=== PATIENT | male | born 1965 | race Caucasian/White ===

== ENCOUNTER → 2018-02-03 11:03 | Outpatient (CLI) | payer OTHER, SELFPAY ==
--- NOTE | 2018-02-03 11:45 | RAD_ITS ---
STUDY: X-RAY CHEST REASON FOR EXAM: Male, 52 years old. Fever and chills. TECHNIQUE: Frontal and lateral views of the chest. COMPARISON: February 12, 2016. FINDINGS: The lungs are clear and expanded. There is no demonstrated pleural abnormality. Normal size heart. Normal mediastinum and jennifer. Normal visualized pulmonary arteries. Normal visualized aortic arch and descending thoracic aorta. Normal visualized thoracic spine. Normal visualized ribs, clavicles, and shoulders. There is no demonstrated abnormality of the visualized soft tissue structures of the upper abdomen. RAD/Chest PA and Lateral IMPRESSION: Normal x-ray examination of the chest. Electronically Signed: Parag Ramirez MD at 12:30 EDT , Service support ,
[2018-02-03 11:53] LABS: Absolute Lymphocyte Count 0.63 X10^3/ul (0.83-4.51); Absolute Neutrophil Count 3.9 X10^3/uL (2.0-7.7); Hematocrit 39.8 % (40-54); Hemoglobin 13.8 g/dl (13.0-16.5); Lymphocyte # 0.63 X10^3/ul (4.0); Lymphocyte % 13.2 % (19-41); Mean Corp Hgb Conc 34.7 g/gl (32-36); Mean Corpuscular Volume 83.6 fL (80-94); Mean Platelet Vol. 9.6 fl (6.2-12.0); Monocyte# 0.24 X10^3/uL; Neutrophil # 3.89 X10^3/uL (2.7-7.7); Neutrophil % 81.8 % (47-70); Platelet Count 129 K/mm3 (150-450); RBC Distribution Width CV 13.5 % (11.6-14.6); RBC Distribution Width SD 41.5 fl (35.1-43.9); Red Blood Count 4.76 M/mm3 (4.6-6.2); White Blood Count 4.8 K/mm3 (4.4-11.0)
[2018-02-03 12:01] LABS: POSITIVE COUNT NO; POSITIVE DIFFERENTIAL NO; POSITIVE MORPHOLOGY NO
[2018-02-03] MEDS: 0.9% Normal Saline 1,000 ML 999 ML IV (12:15)
[2018-02-03 12:32] VITALS: BP 138/71; PULSE 113; RESP 18; TEMP 37.7; O2SAT 95; BMI 39.8
[2018-02-03 12:32] LABS: AST(SGOT) 33 U/L (15-37); Alanine Aminotransfer ALT/SGPT 40 U/L (16-61); Albumin, Serum 3.7 g/dL (3.2-5.0); Alkaline Phosphatase 71 U/L (45-117); Anion Gap 12 (5-15); BUN 11 mg/dL (7-18); BUN/Creat Ratio 6.9 RATIO (10-20); Calcium,Total 8.6 mg/dL (8.5-10.1); Chloride 101 mmol/L (98-107); Creatinine, Serum 1.59 mg/dL (0.70-1.30); EST Glomerular Filtration Rate 49 mL/min (>60); Est Glom Filt Rate - Afr Amer 59 mL/min (>60); Globulin 3.8 g/dL (2.2-4.2); Glucose 173 mg/dL (74-106); Potassium 3.7 mmol/L (3.5-5.1); Protein, Total 7.5 g/dL (6.4-8.2); Sodium Level 135 mmol/L (136-145)
== END ==
LOC: LAB 11:54 → MEDOUTP 12:14
PROVIDERS: Family Provider Internal Medicine; PCP Internal Medicine; Visit Provider Nurse Practitioner Gerontology
DX: E86.0 Dehydration (principal); R05 Cough; R50.9 Fever, unspecified
CPT/HCPCS: 96360; 36415; 71046; 80053; 85025; 87040; 87804; J7030; A4216

== ENCOUNTER 2018-02-04 14:30 | Emergency (ER) | payer OTHER, SELFPAY ==
[2018-02-04 14:31] VITALS: BP 147/81; PULSE 105; RESP 16; TEMP 37.7; O2SAT 95; BMI 39.3
--- NOTE | 2018-02-04 16:10 | ED.VISSUMM ---
- ER Visit Summary Date of Service: 02/04/18 Chief Complaint: Fever, chills sweats and diarrhea History of Present Illness: The patient is a 52 M who reports fever documented 102/2.9?F since Saturday. He reports diarrhea starting Saturday. He has not been on any antibiotics. 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 He states he has not cared for any patients with diarrhea or C. difficile. He was seen yesterday by Dick Jung at [facility] and had blood tests ordered as well as blood cultures. Patient does complain of a vertex headache that is not positional and is intermittent. He denies any neck stiffness or pain. He reports intermittent light sensitivity. He denies rhinorrhea, postnasal drainage or sore throat. He denies chest pain, cough, shortness of breath or difficulty breathing. He denies nausea or vomiting. Does report diarrhea since Saturday. He has not noted any blood or mucus in his stool. Is no history of inflammatory bowel disorder. He reports decreased urine output and darker urine. He denies rash. He does, no generalized weakness. Physical Examination: Vital signs are remarkable for blood pressure 1 4781 temperature 99.9 heart rate 105. He is diaphoretic. Head is atraumatic normocephalic. Pupils equal round reactive paradoxic muscle intact sclerae anicteric. TMs normal. Nares patent with no discharge. Posterior pharynx without erythema or exudate. Uvula is midline. Tongue is dry. Heart is rapid and regular without murmur, gallop or rub. Lungs are clear to auscultation with good move air bilaterally. Abdomen is soft nontender with increased bowel sounds. There is no CVA tenderness noted. No dermatologic lesions noted. He is alert oriented with a nonfocal neurologic exam. Distal pulses are palpable. There is no nuchal rigidity. Test Result; CBC is unremarkable. Creatinine is 1.21 with a GFR 76. Yesterday creatinine was 1.59 with a GFR 54. No stool specimen was submitted because he has not had a bowel movement in 3-1/2 hours. Emergency Department Course and Treatment: CBC and BMP were repeated to compare to yesterday's results. Since he reports diarrhea since Saturday and fever with rigors and diaphoresis stool for enteric pathogens was ordered as well as stool for C. difficile. Treatment Plan: IV was established and received 1 L of normal saline wide open. Since his lab values have improved and he has had no diarrhea and 3 and half hours stool cultures were discontinued. He was instructed to follow-up with Dr. Mcclelland if he is symptoms persisted for several more days. Disposition: Discharged home in stable and improved condition Impression: 1. Abdominal pain with diarrhea 2. Fever 3. Mild dehydration 4. Sinus tachycardia documented on monitor This note was generated with [employer] dictation software. It may contain incorrect words, spelling, and punctuation that were not noted in review of the chart prior to signing ED Disposition - Plan for ED Patient: Disposition: Home or Assisted Living Chief Complaint: Fever Instructions: ED Diarrhea Viral Referrals: Birgit Mcclelland DO [Primary Care Provider] - 3-5 Days if not improving
[2018-02-04] MEDS: 0.9% Normal Saline 1,000 ML 1000 ML IV (16:29)
[2018-02-04 16:33] LABS: Absolute Lymphocyte Count 0.79 X10^3/ul (0.83-4.51); Absolute Neutrophil Count 3.6 X10^3/uL (2.0-7.7); Basophil# 0.01 X10^3/uL; Basophil% 0.2 % (0-1); Hematocrit 37.8 % (40-54); Hemoglobin 13.1 g/dl (13.0-16.5); Lymphocyte # 0.79 X10^3/ul (4.0); Lymphocyte % 16.5 % (19-41); Mean Corp Hgb Conc 34.7 g/gl (32-36); Mean Corpuscular Hgb 28.7 pg (27.0-32.0); Mean Corpuscular Volume 82.9 fL (80-94); Mean Platelet Vol. 10.1 fl (6.2-12.0); Monocyte# 0.43 X10^3/uL; Neutrophil # 3.55 X10^3/uL (2.7-7.7); Neutrophil % 74.3 % (47-70); Platelet Count 125 K/mm3 (150-450); RBC Distribution Width CV 13.6 % (11.6-14.6); RBC Distribution Width SD 41.3 fl (35.1-43.9); Red Blood Count 4.56 M/mm3 (4.6-6.2); White Blood Count 4.8 K/mm3 (4.4-11.0)
[2018-02-04 16:36] LABS: POSITIVE COUNT NO; POSITIVE DIFFERENTIAL NO; POSITIVE MORPHOLOGY NO
[2018-02-04 16:47] LABS: Anion Gap 7 (5-15); BUN 8 mg/dL (7-18); BUN/Creat Ratio 6.6 RATIO (10-20); Chloride 103 mmol/L (98-107); Creatinine, Serum 1.21 mg/dL (0.70-1.30); EST Glomerular Filtration Rate 67 mL/min (>60); Est Glom Filt Rate - Afr Amer 81 mL/min (>60); Estimated Creatinine Clearance 76.06 ml/min; Glucose 117 mg/dL (74-106); Potassium 3.6 mmol/L (3.5-5.1); Sodium Level 135 mmol/L (136-145)
[2018-02-04 18:32] VITALS: BP 137/75; PULSE 93; RESP 16
== END 2018-02-04 18:35 | disposition home or self-care (01) ==
PROVIDERS: Emergency Provider Emergency Medicine; Family Provider Internal Medicine; PCP Internal Medicine
DX: R10.9 Unspecified abdominal pain (principal); R19.7 Diarrhea, unspecified; R50.9 Fever, unspecified; E86.0 Dehydration; R00.0 Tachycardia, unspecified; Z72.0 Tobacco use; Z79.899 Other long term (current) drug therapy
CPT/HCPCS: 80048; 85025; 96360; 96361; 99285; J7030; A4216

== ENCOUNTER → 2018-02-10 11:19 | Outpatient (CLI) | payer OTHER, SELFPAY ==
[2018-02-10 11:55] LABS: Color, Urine Yellow (Yellow); Glucose, Dipstick Normal (Normal); Ketone-Dipstick Negative (Negative); Leukocyte Esterase-Dipstick Negative /ul (Negative); Nitrite-Dipstick Negative (Negative); Occult Blood-Urine Negative /ul (Negative); Protein-Dipstick Negative (Negative); Specific Gravity, Urine 1.015 (1.002-1.030); Urine Bilirubin Dipstick Negative (Negative); Urine Clarity Clear (Clear); Urine Urobilinogen Normal (Normal)
[2018-02-10 12:05] LABS: Erythrocyte Sedimentation Rate 9 mm/hr (0-20)
== END ==
PROVIDERS: Family Provider Internal Medicine; PCP Internal Medicine; Visit Provider Nurse Practitioner Gerontology
DX: R50.9 Fever, unspecified (principal)
CPT/HCPCS: 36415; 81002; 85652; 86140; 87086

== ENCOUNTER → 2018-02-26 15:17 | Outpatient (CLI) | payer OTHER, SELFPAY ==
[2018-02-26 15:39] LABS: Absolute Lymphocyte Count 0.97 X10^3/ul (0.83-4.51); Absolute Neutrophil Count 4.3 X10^3/uL (2.0-7.7); Basophil# 0.01 X10^3/uL; Basophil% 0.2 % (0-1); Eosinophils% 1.8 % (0-5); Hematocrit 41.6 % (40-54); Hemoglobin 14.2 g/dl (13.0-16.5); Lymphocyte # 0.97 X10^3/ul (4.0); Mean Corp Hgb Conc 34.1 g/gl (32-36); Mean Corpuscular Hgb 29.1 pg (27.0-32.0); Mean Corpuscular Volume 85.2 fL (80-94); Mean Platelet Vol. 9.4 fl (6.2-12.0); Monocyte# 0.31 X10^3/uL; Monocyte% 5.4 % (0-10); Neutrophil % 75.4 % (47-70); Platelet Count 194 K/mm3 (150-450); RBC Distribution Width CV 13.9 % (11.6-14.6); RBC Distribution Width SD 42.8 fl (35.1-43.9); Red Blood Count 4.88 M/mm3 (4.6-6.2); White Blood Count 5.7 K/mm3 (4.4-11.0)
[2018-02-26 15:40] LABS: POSITIVE COUNT NO; POSITIVE DIFFERENTIAL NO; POSITIVE MORPHOLOGY NO
[2018-02-28 14:24] LABS: ANTINUCLEAR ANTIBODIES DIRECT Negative (Negative)
== END ==
PROVIDERS: Family Provider Internal Medicine; PCP Internal Medicine; Visit Provider Internal Medicine
DX: D69.6 Thrombocytopenia, unspecified (principal); M25.50 Pain in unspecified joint
CPT/HCPCS: 36415; 85025; 86038

== ENCOUNTER → 2018-02-28 11:43 | Outpatient (CLI) | payer OTHER, SELFPAY ==
[2018-02-28 12:42] LABS: Absolute Lymphocyte Count 1.16 X10^3/ul (0.83-4.51); Absolute Neutrophil Count 5.2 X10^3/uL (2.0-7.7); Basophil# 0.02 X10^3/uL; Basophil% 0.3 % (0-1); Eosinophil# 0.13 X10^3/uL; Eosinophils% 1.9 % (0-5); Hematocrit 40.5 % (40-54); Hemoglobin 14.1 g/dl (13.0-16.5); Lymphocyte # 1.16 X10^3/ul (4.0); Lymphocyte % 16.9 % (19-41); Mean Corp Hgb Conc 34.8 g/gl (32-36); Mean Corpuscular Hgb 29.5 pg (27.0-32.0); Mean Corpuscular Volume 84.7 fL (80-94); Mean Platelet Vol. 9.9 fl (6.2-12.0); Monocyte# 0.38 X10^3/uL; Monocyte% 5.5 % (0-10); Neutrophil # 5.15 X10^3/uL (2.7-7.7); Neutrophil % 75.1 % (47-70); Platelet Count 203 K/mm3 (150-450); RBC Distribution Width CV 13.7 % (11.6-14.6); RBC Distribution Width SD 42.2 fl (35.1-43.9); Red Blood Count 4.78 M/mm3 (4.6-6.2); White Blood Count 6.9 K/mm3 (4.4-11.0)
[2018-02-28 12:44] LABS: POSITIVE COUNT NO; POSITIVE DIFFERENTIAL NO; POSITIVE MORPHOLOGY NO
[2018-02-28 12:51] LABS: Erythrocyte Sedimentation Rate 29 mm/hr (0-20)
[2018-02-28 13:08] LABS: ALB/GLOB Ratio 0.9 RATIO (0.9-2.4); AST(SGOT) 20 U/L (15-37); Alanine Aminotransfer ALT/SGPT 25 U/L (16-61); Albumin, Serum 3.7 g/dL (3.2-5.0); Alkaline Phosphatase 70 U/L (45-117); Anion Gap 7 (5-15); BUN 11 mg/dL (7-18); BUN/Creat Ratio 9.3 RATIO (10-20); Calcium,Total 8.8 mg/dL (8.5-10.1); Chloride 107 mmol/L (98-107); Creatinine, Serum 1.18 mg/dL (0.70-1.30); EST Glomerular Filtration Rate 69 mL/min (>60); Est Glom Filt Rate - Afr Amer 83 mL/min (>60); Globulin 4.1 g/dL (2.2-4.2); Glucose 105 mg/dL (74-106); Potassium 3.7 mmol/L (3.5-5.1); Protein, Total 7.8 g/dL (6.4-8.2); Sodium Level 139 mmol/L (136-145)
[2018-03-01 15:12] LABS: ASO Titer 34.6 IU/mL (0.0-200.0)
[2018-03-04 07:55] LABS: Anti-dsDNA Ab <1 IU/mL (0-9)
== END ==
PROVIDERS: Family Provider Internal Medicine; PCP Internal Medicine; Visit Provider Physician Assistant
DX: L30.9 Dermatitis, unspecified (principal)
CPT/HCPCS: 36415; 80053; 85025; 85652; 86060; 86225

== ENCOUNTER → 2018-03-14 13:29 | Outpatient (CLI) | payer OTHER, SELFPAY ==
--- NOTE | 2018-03-14 13:56 | ECHOD_ITS ---
Reason For Study: Murmur, R/O Endocarditis Procedure This was a 2D Doppler, Color Flow transthoracic echocardiogram. The exam was of poor technical quality due to body habitus. The study was technically difficult. Contrast injection was performed. Exam performed in department. Left Ventricle Normal LV size. Left ventricular systolic function is normal. The estimated ejection fraction is 55 %. Transmitral doppler flow suggestive of impaired relaxation of left ventricle. No regional wall motion abnormalities noted. Right Ventricle Normal RV size. Normal systolic function. Atria Normal left atrium. Normal right atrium. No doppler evidence for ASD. Mitral Valve There is no mitral annular calcification. Normal mitral valve. Mild (1+) eccentric mitral valve insufficiency. Tricuspid Valve Normal tricuspid valve. Trivial tricuspid valve insufficiency. Right ventricular systolic pressure estimated to be 23 mmHg. Aortic Valve Trisinus/trileaflet aortic valve. Normal aortic valve. Pulmonic Valve The pulmonic valve is not well visualized. Great Vessels Normal sized aortic root. Pericardium/Pleural No pericardial effusion. Medication Definity0.2ml given slow IV push to enhance endocardial definition. MMode/2D Measurements & Calculations LVIDd: 5.0 cm IVSd: 1.00 cm Ao root diam: 3.0 cm LVIDs: 3.7 cm LVPWd: 0.92 cm LA dimension: 3.7 cm FS: 26.3 % LAV(MOD-bp): 26.0 ml LA A4 area: 9.7 cm2 RA A4 area: 7.9 cm2 LAV(MOD-bp) Indexed: 10.8 ml/m2 LAV(MOD-sp2): 30.1 ml LAV(MOD-sp4): 22.7 ml Doppler Measurements & Calculations MV E max patel: 47.4 cm/sec Lat Peak E' Patel: 6.7 cm/sec Med Peak E' Patel: 4.6 cm/sec MV A max patel: 65.3 cm/sec E/E' lat: 7.1 E/E' med: 10.2 MV E/A: 0.73 Ao V2 max: 101.5 cm/sec LV V1 max: 86.1 cm/sec PA V2 max: 96.4 cm/sec Ao max P.1 mmHg LV V1 max P.0 mmHg Ao V2 mean: 87.5 cm/sec Ao mean P.1 mmHg Ao V2 VTI: 19.4 cm TR max patel: 221.2 cm/sec TR max P.6 mmHg Interpretation Summary The study was technically difficult. Contrast injection was performed. Left ventricular systolic function is normal. The estimated ejection fraction is 55 %. Mild (1+) eccentric mitral valve insufficiency. Trivial tricuspid valve insufficiency. Right ventricular systolic pressure estimated to be 23 mmHg. Transmitral doppler flow suggestive of impaired relaxation of left ventricle Ordering Physician: Dick Moulton Referring Physician: Birgit Mcclelland Performed By: Miriam Fuentes, TUAN, RVT
[2018-03-14 16:11] LABS: HIV - WCH Non-Reactive (Nonreactive)
[2018-03-19 12:09] LABS: Cytoplasmic Ab (C-ANCA) <1:20 titer (Neg:<1:20); HEPATITIS B SURFACE AG Negative (Negative); Hepatitis A AB, Total Negative (Negative); Hepatitis A IgM Antibody Negative (Negative); Hepatitis B Core AB IgM Negative (Negative); Hepatitis B Core Ab Total Negative (Negative); Hepatitis C Ab 0.1 s/co ratio (0.0-0.9); Lyme IgG P18 Ab Present (.); Lyme IgG P23 Ab Absent (.); Lyme IgG P28 Ab Absent (.); Lyme IgG P30 Ab Absent (.); Lyme IgG P39 Ab Absent (.); Lyme IgG P41 Ab Present (.); Lyme IgG P45 Ab Absent (.); Lyme IgG P58 Ab Absent (.); Lyme IgG P66 Ab Absent (.); Lyme IgG P93 Ab Present (.); Lyme IgM P23 Ab Present (.); Lyme IgM P39 Ab Present (.); Lyme IgM P41 Ab Present (.)
[2018-03-20 16:51] LABS: CCP IgG Antibodies 7 units (0-19); Hep B Surface Antibodies Non Reactive (.); Perinuclear Ab (P-ANCA) <1:20 titer (Neg:<1:20)
[2018-03-20 16:52] LABS: Lyme IgG WB Interpretation Negative (.); Lyme IgM WB Interpretation Positive (.)
== END ==
PROVIDERS: Family Provider Internal Medicine; PCP Internal Medicine; Visit Provider Internal Medicine Infectious Disease
DX: R01.1 Cardiac murmur, unspecified (principal); M25.50 Pain in unspecified joint
CPT/HCPCS: 36415; 86200; 86256; 86617; 86703; 86704; 86705; 86706; 86708; 86709; 86803; 87040; 87340; 93306; Q9957; A4216; C8929

== ENCOUNTER 2018-03-14 15:31 | Emergency (ER) | payer OTHER, SELFPAY ==
[2018-03-14 15:33] VITALS: BP 129/83; PULSE 94; RESP 16; TEMP 36.8; O2SAT 98; BMI 38.2
--- NOTE | 2018-03-14 15:52 | CT_ITS ---
STUDY: CT BRAIN WITHOUT CONTRAST REASON FOR EXAM: Male, 52 years old. Headache, right facial droop and numbness for 2 days with slurred speech, question of Gutierrez's palsy. RADIATION DOSAGE (If Supplied By Facility): CTDIvol = ( 60.81 ) mGy, DLP = ( 1067.08 ) mGycm TECHNIQUE: Transaxial CT imaging of the brain was performed without administration of intravenous contrast material. Coronal and sagittal 2-D MPR Individualized dose optimization techniques were used for this CT. COMPARISON: None. FINDINGS: Extracranial soft tissues including orbital contents exhibit no acute abnormality. Craniofacial osseous structures within the field of view exhibit no acute abnormality. Paranasal sinuses, mastoid air cells and middle ear cavities are clear. Normal size ventricles and extra-axial spaces for the patient's age. Normal pituitary, brainstem and cerebellum There is no acute intracranial bleed, mass or mass effect nor any specific evidence of acute territorial infarct. CT/Brain/Head without Contrast IMPRESSION: No acute intracranial process. Electronically Signed: Sean Snider, at 16:51 EDT Tel , Service support ,
--- NOTE | 2018-03-14 15:52 | EKG12_ITS ---
Test Reason : FACIAL DROOP Blood Pressure : / mmHG Vent. Rate : 083 BPM Atrial Rate : 083 BPM P-R Int : 258 ms QRS Dur : 108 ms QT Int : 368 ms P-R-T Axes : 038 007 -30 degrees QTc Int : 432 ms Sinus rhythm with 1st degree A-V block Nonspecific T wave abnormality Abnormal ECG Confirmed by JACLYN MORRISON, NICOLAS ([id number]), general expeditor FAISAL SWANSON ([id number]) on 03/18/2018 2:15:59 PM Referred By: Dick Moulton Confirmed By:NICOLAS ANAYA MD
[2018-03-14] MEDS: Acetaminophen 500 MG Tablet 1000 MG PO (15:57)
--- NOTE | 2018-03-14 16:18 | ED.VISSUMM ---
- ER Visit Summary Date of Service: 03/14/18 Chief Complaint: Facial droop History of Present Illness: The patient is a 52 M who 6 weeks ago developed fever is felt to have a virus. He then developed a rash in his shoulder and became more diffuse. He eventually saw dermatology had a negative biopsy. The patient rash is improved he continues to have generalized myalgias. Went to primary care's office today and had blood work done and then had echocardiogram done today. Patient states that 2 days ago while brushing his teeth he noticed that he had difficult time spitting the toothpaste out and then last night had difficulty drinking a pop. 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 Patient does note bit of a right-sided headache and some pain just anterior inferior to the right ear. He denies any herpetic-like lesions on the face of the scalp. Physical Examination: Afebrile vital signs are stable Gen: Well-nourished well-developed Head: Normocephalic atraumatic Eyes: Perrl EOMI ENT: TMs clear no rhinorrhea moist mucous membranes Neck: Supple no lymphadenopathy no JVD nontender CVS: Regular rate rhythm no murmurs normal S1-S2 Respiratory: No distress clear to auscultation bilaterally chest nontender Abdomen: Soft nontender nondistended normal bowel sounds no masses Back: Nontender Extremity: Nontender no edema Skin: Normal color no rash Neuro: alert orientated ?3 patient has normal strength and sensation of the extremities. Looking at the face the patient has right-sided facial droop weakness of the eyelid and weakness of the forehead. There are no herpetic lesions seen. There is no symptomatology seen in the ear canal or the tympanic membrane. Sensations preserved. Psych: Normal affect normal mood Test Results: EKG shows a sinus rhythm with a first-degree AV block at a rate of 83. There were some inferior anterior changes of the T waves compared to his EKG 1-1/[address] the brain was obtained because of the patient's had an recent infections and this was negative. His white count is normal at 7.5 with 75.8 segs. ESR is elevated at 29. CRP is elevated at 33. Troponin is negative. Chest x-ray is negative. Blood cultures were obtained as well as a fungal culture. Emergency Department Course and Treatment: I spoke with cardiology and they were able to read his echocardiogram that he had done today. This does not demonstrate any obvious valvular lesions but a MOI is a better test. Ejection fraction is normal. There is no effusion. There was some mitral valve regurgitation at 1+. I spoke with the patient's infectious disease doctor. He is following the case closely. Clinically the patient has an acute Gutierrez's palsy will be started on prednisone and acyclovir. He will continue to follow-up with his doctor. We talked about the fact that some people with Gutierrez's palsy do not resolve. The patient I spoke at length about keeping him in the hospital this weekend for observation and obtain a MOI on Saturday but the patient does not wish to stay in the hospital if he has to wait until Saturday for the MOI. Patient will return if has any concerns. Impression: 1. Acute right Gutierrez's palsy 2. Fever of unknown origin This note was generated with [employer] dictation software. It may contain incorrect words, spelling, and punctuation that were not noted in review of the chart prior to signing ED Disposition - Plan for ED Patient: Disposition: Home or Assisted Living Chief Complaint: Neuro S/Sx Instructions: ED [place] Palsy, ED Fever Unconf Cause Prescriptions: Prednisone [Deltasone] 60 mg PO DAILY #15 tab Valacyclovir HCl [Valacyclovir] 1,000 mg PO TID 7 Days #21 tab Referrals: Dick Moulton MD [STAFF PHYSICIAN] - As soon as possible
--- NOTE | 2018-03-14 16:23 | ED.DCSUM_ITS ---
- ER Visit Summary Date of Service: 03/14/18 Chief Complaint: Facial droop History of Present Illness: The patient is a 52 M who 6 weeks ago developed fever is felt to have a virus. He then developed a rash in his shoulder and became more diffuse. He eventually saw dermatology had a negative biopsy. The patient rash is improved he continues to have generalized myalgias. Went to primary care's office today and had blood work done and then had echocardiogram done today. Patient states that 2 days ago while brushing his teeth he noticed that he had difficult time spitting the toothpaste out and then last night had difficulty drinking a pop. 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 Patient does note bit of a right-sided headache and some pain just anterior inferior to the right ear. He denies any herpetic-like lesions on the face of the scalp. Physical Examination: Afebrile vital signs are stable Gen: Well-nourished well-developed Head: Normocephalic atraumatic Eyes: Perrl EOMI ENT: TMs clear no rhinorrhea moist mucous membranes Neck: Supple no lymphadenopathy no JVD nontender CVS: Regular rate rhythm no murmurs normal S1-S2 Respiratory: No distress clear to auscultation bilaterally chest nontender Abdomen: Soft nontender nondistended normal bowel sounds no masses Back: Nontender Extremity: Nontender no edema Skin: Normal color no rash Neuro: alert orientated ?3 patient has normal strength and sensation of the extremities. Looking at the face the patient has right-sided facial droop weakness of the eyelid and weakness of the forehead. There are no herpetic lesions seen. There is no symptomatology seen in the ear canal or the tympanic membrane. Sensations preserved. Psych: Normal affect normal mood Test Results: EKG shows a sinus rhythm with a first-degree AV block at a rate of 83. There were some inferior anterior changes of the T waves compared to his EKG 1-1/[address] the brain was obtained because of the patient's had an recent infections and this was negative. His white count is normal at 7.5 with 75.8 segs. ESR is elevated at 29. CRP is elevated at 33. Troponin is negative. Chest x-ray is negative. Blood cultures were obtained as well as a fungal culture. Emergency Department Course and Treatment: I spoke with cardiology and they were able to read his echocardiogram that he had done today. This does not demonstrate any obvious valvular lesions but a MOI is a better test. Ejection fraction is normal. There is no effusion. There was some mitral valve regurgitation at 1+. I spoke with the patient's infectious disease doctor. He is following the case closely. Clinically the patient has an acute Gutierrez's palsy will be started on prednisone and acyclovir. He will continue to follow- up with his doctor. We talked about the fact that some people with Gutierrez's palsy do not resolve. The patient I spoke at length about keeping him in the hospital this weekend for observation and obtain a MOI on Saturday but the patient does not wish to stay in the hospital if he has to wait until Saturday for the MOI. Patient will return if has any concerns. Impression: 1. Acute right Gutierrez's palsy 2. Fever of unknown origin This note was generated with [employer] dictation software. It may contain incorrect words, spelling, and punctuation that were not noted in review of the chart prior to signing ED Disposition - Plan for ED Patient: Disposition: Home or Assisted Living Chief Complaint: Neuro S/Sx Instructions: ED [place] Palsy, ED Fever Unconf Cause Prescriptions: Prednisone [Deltasone] 60 mg PO DAILY #15 tab Valacyclovir HCl [Valacyclovir] 1,000 mg PO TID 7 Days #21 tab Referrals: Dick Moulton MD [STAFF PHYSICIAN] - As soon as possible
--- NOTE | 2018-03-14 16:29 | RAD_ITS ---
STUDY: X-RAY CHEST REASON FOR EXAM: Male, 52 years old. Cough, right facial droop. TECHNIQUE: Portable upright chest COMPARISON: 02/03/2018 FINDINGS: The patient is slightly rotated accounting for the differential density of the lung michele. The lungs are clear and expanded. Normal cardiomediastinal silhouette, jennifer and pleural margins. No acute osseous or upper abdominal process. RAD/Chest 1 View (Portable) IMPRESSION: No acute cardiopulmonary process. Electronically Signed: Sean Snider, at 16:53 EDT Tel , Service support ,
[2018-03-14 17:18] LABS: Prothrombin Time (Protime)PT. 13.5 SECONDS (11.7-14.9)
[2018-03-14 17:19] LABS: Partial Thromboplast Time 33.2 Seconds (24.1-36.2)
[2018-03-14 17:20] LABS: Absolute Neutrophil Count 5.7 X10^3/uL (2.0-7.7); Basophil# 0.02 X10^3/uL; Basophil% 0.3 % (0-1); Eosinophil# 0.11 X10^3/uL; Eosinophils% 1.5 % (0-5); Hematocrit 42.9 % (40-54); Hemoglobin 14.6 g/dl (13.0-16.5); Mean Corpuscular Hgb 28.6 pg (27.0-32.0); Mean Platelet Vol. 9.8 fl (6.2-12.0); Monocyte# 0.47 X10^3/uL; Monocyte% 6.3 % (0-10); Neutrophil # 5.67 X10^3/uL (2.7-7.7); Neutrophil % 75.8 % (47-70); Platelet Count 232 K/mm3 (150-450); RBC Distribution Width SD 42.5 fl (35.1-43.9); Red Blood Count 5.11 M/mm3 (4.6-6.2); White Blood Count 7.5 K/mm3 (4.4-11.0)
[2018-03-14 17:21] LABS: ALB/GLOB Ratio 0.9 RATIO (0.9-2.4); AST(SGOT) 19 U/L (15-37); Alanine Aminotransfer ALT/SGPT 23 U/L (16-61); Albumin, Serum 3.5 g/dL (3.2-5.0); Alkaline Phosphatase 66 U/L (45-117); Anion Gap 7 (5-15); BUN 9 mg/dL (7-18); BUN/Creat Ratio 8.2 RATIO (10-20); Calcium,Total 9.2 mg/dL (8.5-10.1); Chloride 105 mmol/L (98-107); EST Glomerular Filtration Rate 75 mL/min (>60); Est Glom Filt Rate - Afr Amer 90 mL/min (>60); Estimated Creatinine Clearance 83.67 ml/min; Globulin 3.9 g/dL (2.2-4.2); Glucose 107 mg/dL (74-106); Potassium 3.5 mmol/L (3.5-5.1); Protein, Total 7.4 g/dL (6.4-8.2); Sodium Level 140 mmol/L (136-145)
[2018-03-14 17:24] LABS: POSITIVE COUNT NO; POSITIVE DIFFERENTIAL NO; POSITIVE MORPHOLOGY NO
[2018-03-14 17:36] LABS: Erythrocyte Sedimentation Rate 29 mm/hr (0-20)
[2018-03-14 17:41] VITALS: BP 122/72; PULSE 88; RESP 19; O2SAT 97
[2018-03-14 17:42] LABS: Lactic Acid 1.5 mmol/L (0.4-2.0)
[2018-03-14] MEDS: Ibuprofen 200 MG Tablet 800 MG PO (17:52)
--- NOTE | 2018-03-14 17:55 | NURSING ---
DR LUCAS LAWS
[2018-03-14 18:23] VITALS: BMI 38.2
[2018-03-14 19:26] VITALS: BP 132/73; PULSE 85; RESP 17; O2SAT 97
== END 2018-03-14 19:28 | disposition home or self-care (01) ==
PROVIDERS: Emergency Provider Emergency Medicine; Family Provider Internal Medicine; PCP Internal Medicine
DX: G51.0 Bell's palsy (principal); R50.9 Fever, unspecified; M10.9 Gout, unspecified; E78.00 Pure hypercholesterolemia, unspecified; Z79.899 Other long term (current) drug therapy
CPT/HCPCS: 70450; 71045; 80053; 83605; 84484; 85025; 85610; 85652; 85730; 86140; 87040; 93005; 99285; A4216

== ENCOUNTER → 2019-04-01 | Outpatient (CLI) | payer OTHER, SELFPAY ==
[2019-04-01 15:19] LABS: Hemoglobin A1c 5.2 % (4.2-6.3); Vitamin D,25 Hydroxy 16.4 ng/mL (29.95-100.01)
[2019-04-01 15:21] LABS: PSA,Total - Annual Screen 0.96 ng/mL (0.00-4.00); Thyroid Stim Hormone (TSH) 4.08 uIU/mL (0.358-3.74)
== END | disposition home or self-care (01) ==
LOC: LAB 14:06
PROVIDERS: Family Provider Internal Medicine; PCP Internal Medicine; Referring Provider Internal Medicine; Visit Provider Internal Medicine
DX: E78.5 Hyperlipidemia, unspecified (principal); R79.89 Other specified abnormal findings of blood chemistry; Z12.5 Encounter for screening for malignant neoplasm of prostate; R73.9 Hyperglycemia, unspecified
CPT/HCPCS: 36415; 82306; 83036; 84153; 84443; G0103

== ENCOUNTER → 2019-08-07 10:51 | Outpatient (CLI) | payer OTHER, SELFPAY ==
[2019-08-07 12:15] LABS: Uric Acid 6.8 mg/dL (3.5-7.2)
[2019-08-09 15:07] LABS: CHOLESTEROL TOTAL 190 mg/dL (100-199); HDL-C 30 mg/dL (>39); HDL-P TOTAL 27.3 umol/L (>=30.5); SMALL LDL-P 1027 nmol/L (<=527); TRIGLYCERIDES 257 mg/dL (0-149)
[2019-08-09 17:47] LABS: INSULIN RESISTANCE SCORE 91 (<=45); LDL-C 109 mg/dL (0-99); LDL-P 1516 nmol/L (<1000)
== END ==
PROVIDERS: Family Provider Internal Medicine; PCP Internal Medicine; Referring Provider Internal Medicine; Visit Provider Internal Medicine
DX: E79.0 Hyperuricemia without signs of inflammatory arthritis and tophaceous disease (principal); E78.5 Hyperlipidemia, unspecified
CPT/HCPCS: 36415; 80061; 83704; 84550

== ENCOUNTER → 2019-09-09 13:06 | Outpatient (CLI) | payer OTHER, SELFPAY ==
[2019-09-09 14:07] LABS: T4 Free Direct 1.01 ng/dL (0.76-1.46); Thyroid Stim Hormone (TSH) 5.44 uIU/mL (0.358-3.74)
== END ==
PROVIDERS: PCP Internal Medicine; Referring Provider Internal Medicine; Visit Provider Internal Medicine
DX: E03.9 Hypothyroidism, unspecified (principal); E78.5 Hyperlipidemia, unspecified
CPT/HCPCS: 36415; 84439; 84443; 84481

== ENCOUNTER → 2019-12-11 | Outpatient (CLI) | payer OTHER, SELFPAY ==
[2019-12-11 10:59] LABS: Cholesterol 171 mg/dL (200); High Density Lipoprotein 39 mg/dL; Triglycerides 199 mg/dL; Very Low Density Lipoprotein 40 mg/dL (5-40)
== END | disposition home or self-care (01) ==
PROVIDERS: PCP Internal Medicine; Referring Provider Internal Medicine; Visit Provider Internal Medicine
DX: E78.5 Hyperlipidemia, unspecified (principal)
CPT/HCPCS: 36415; 80061

== ENCOUNTER 2020-09-23 15:35 | Outpatient (RCR) | payer OTHER, SELFPAY | END 2020-10-16 23:59 | LOC: LABSPEC 15:35 | PROVIDERS: PCP Internal Medicine; Referring Provider Family Medicine Geriatric Medicine; Visit Provider Family Medicine Geriatric Medicine | DX: Z03.818 Encounter for observation for suspected exposure to other biological agents ruled out (principal) | CPT/HCPCS: 87426 ==

== ENCOUNTER → 2021-01-02 15:32 | Outpatient (CLI) | payer OTHER, SELFPAY ==
--- NOTE | 2021-01-02 15:35 | RAD_ITS ---
STUDY: X-RAY - LEFT KNEE REASON FOR EXAM: Male, 55 years old. PAIN IN L KNEE -- STANDING TECHNIQUE: 4 view(s) of the knee. COMPARISON: None. FINDINGS: Normal visualized distal femur. Normal visualized proximal tibia and fibula. Normal proximal tibiofibular articulation. 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 Normal lateral femorotibial compartment. There is mild degenerative arthrosis of the patellofemoral articulation. The soft tissue structures are unremarkable. RAD/Knee 4 or More Views IMPRESSION: Mild degenerative changes, no acute findings Electronically Signed: Jcarlos Haddad MD at 7:46 EDT , Service support ,
--- NOTE | 2021-01-02 15:41 | RAD_ITS ---
STUDY: X-RAY - RIGHT KNEE REASON FOR EXAM: Male, 55 years old. PAIN IN R KNEE TECHNIQUE: 4 weightbearing view(s) of the knee. COMPARISON: None. FINDINGS: Normal visualized distal femur. Normal visualized proximal tibia and fibula. Normal proximal tibiofibular articulation. There is mild degenerative arthrosis of the medial femorotibial compartment. There is mild degenerative arthrosis of the lateral femorotibial compartment. There is mild degenerative arthrosis of the patellofemoral articulation. The soft tissue structures are unremarkable. RAD/Knee 4 or More Views IMPRESSION: Mild arthrosis Electronically Signed: Jcarlos Haddad MD at 7:46 EDT , Service support ,
== END ==
PROVIDERS: PCP Internal Medicine; Referring Provider Physician Assistant Surgical; Visit Provider Physician Assistant Surgical
DX: M25.561 Pain in right knee (principal)
CPT/HCPCS: 73564

== ENCOUNTER 2021-03-25 19:21 | Emergency (ER) | payer OTHER, SELFPAY ==
[2021-03-25 19:22] VITALS: BP 153/91; PULSE 86; RESP 17; TEMP 36.8; O2SAT 98; BMI 40.7
[2021-03-25 19:24] VITALS: BP 153/91; PULSE 87; RESP 16; TEMP 36.8; O2SAT 97
--- NOTE | 2021-03-25 19:42 | EX.ED.VIS.UR ---
HPI HPI - URI History of Present Illness Chief Complaint: Sore Throat Informant: patient Onset/Context/Timing Onset: Days Context: Gradual Onset Timing: Continuous Current Severity: Mild Worsened by: Swallowing Associated Symptoms Associated Symptoms: Positive for Productive Cough; Negative for Nasal Congestion, Headache, Sinus Pressure, Myalgias, Nausea, Vomiting, Diarrhea, Shortness of Breath and Chest Pain Narrative Narrative: 55-year-old male history of high triglycerides and gout. 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 For the last 3 to 4 days starting on Saturday has had a sore throat and a productive cough. He denies any vomiting or diarrhea. He did have a subjective fever on Saturday. He has been vaccinated for Covid. Prior similar symptoms: Yes Recent Illness/Hospitalization: No ROS ROS ED ROS Narrative Subjective fever, sore throat cough. No shortness of breath. No vomiting or diarrhea. Review of Systems ROS Unobtainable: Denies due to encephalopathy Constitutional Constitutional ED: Reports fever(s) Eyes Eyes: Denies change in vision ENT ENT ED: Reports sore throat; Denies ear pain Cardiovascular Cardiovascular: Denies chest pain Respiratory/Chest Respiratory/Chest: Reports cough and sputum; Denies dyspnea Gastrointestinal Gastrointestinal: Denies abdominal pain, diarrhea, nausea or vomiting Genitourinary Genitourinary ED: Denies dysuria Musculoskeletal Musculoskeletal: Denies myalgias Integumentary Denies rash Neurologic Neurologic: Denies headache(s) Psychiatric Psychiatric: Denies depression Endocrine Endocrinology: Denies polyuria Hematologic/Lymphatic Hematologic/Lymphatic: Denies easy bruising Allergic/Immunologic Allergic/Immunologic ED: Denies urticaria PFSH PFSH Home Medications febuxostat [Uloric] 40 mg PO DAILY 02/12/16 [History Last Taken 03/14/18] fenofibric acid (choline) [Trilipix] 135 mg PO DAILY 02/12/16 [History Last Taken 03/13/18] levothyroxine [Synthroid] 25 mcg PO DAILY 03/25/21 [History Last Taken Unknown] multivitamin 1 tab PO DAILY 03/25/21 [History Last Taken Unknown] Allergy/AdvReac Type Severity Reaction Status Date / Time No Known Allergies Allergy Verified 03/25/21 19:22 Social History Smoking Status: Never smoker EXAM Physical Exam Narrative Exam Narrative: Middle-age male no acute distress vital signs stable afebrile. Pulse ox 90% on room air no signs hypoxia. He does not look septic or toxic. HEENT exam mild posterior pharyngeal erythema. No exudate. No peritonsillar abscess. No trouble swallowing or breathing. No stridor nor drooling. TMs normal. Neck nontender no lymphadenopathy. Trachea midline. Lungs clear to auscultation bilaterally. No rales, rhonchi or wheezing. Currently not coughing. Heart regular rhythm no murmur. Abdomen soft nontender. Moving all extremities. No edema. Back nontender. Skin no rashes. Neurologically is awake and alert. Const Vital Signs: 03/25/21 19:22 03/25/21 19:24 Temperature 98.3 F 98.3 F Temperature Source Temporal Temporal Pulse Rate 86 87 Respiratory Rate 17 16 Blood Pressure 153/91 H 153/91 H Blood Pressure Mean 111 111 Pulse Ox 98 97 Oxygen Delivery Method Room Air Room Air Positive well nourished and well developed General Appearance ED: well developed and NAD; Negative for cyanotic or diaphoretic HEENT Reports TM's clear and moist mucous membranes HEENT Narrative: Mild posterior pharyngeal erythema. No exudate. No abscess. normocephalic and atraumatic; Negative for scalp tenderness Face and Sinus: Negative for sinus tenderness, maxillary instability or facial tenderness External Ear: external ears normal, mastoids normal and no preauricular adenopathy External Auditory Canal: EAC's normal Tympanic Membrane ED: Yes TM's clear and TM's normal bilaterally Tympanic Membrane: TM's normal bilaterally Throat: posterior oropharynx abnormal Eyes PERRL and EOMs intact bilaterally Neck no lymphadenopathy, supple, no meningeal signs and no JVD General: Negative for anterior neck swelling or lymphadenopathy Resp normal respiratory effort and clear to auscultation bilaterally Auscultation: Negative for rales, rhonchi or wheezes Cardio S1 normal heart sound, S2 normal heart sound and no murmurs Rate: regular rate Rhythm: regular rhythm GI non-tender, non-distended and no masses Inspection: Negative for abdominal distention Auscultation: normoactive bowel sounds Palpation: soft; Negative for tender or guarding Back/Spine no CVA tenderness General Back: Negative for CVA tenderness Extremity normal to inspection and full ROM General Extremety ED: Negative for cyanosis or tenderness General Extremity: Negative for cyanosis Neuro oriented x3 Sensorium / Orientation: alert, oriented to person, oriented to place and oriented to time; Negative for orientation impaired, lethargic or stuporous Motor Exam: strength 5/5 throughout Psych mental status grossly normal Skin Lesions: no lesions Rashes: no rashes MDM MDM MDM Narrative Medical decision making narrative: Middle-aged male with sore throat and cough. Rapid strep and Covid test will be obtained. Lungs are clear I do not think he needs an x-ray. Lab Data Attestation: I reviewed the patient's lab results. Lab results narrative: Rapid strep and Covid both negative. Repeat exam at 905 doing well be discharged home. Treated as a viral syndrome. Discharge Plan Triage Chief Complaint: Sore Throat ED Provider: Bhupendra Myers Dx/Rx/DC Orders Clinical Impression: Viral URI Instructions: ED URI, Viral, No Abx (Adult) Prescriptions: No Action febuxostat [Uloric] 40 MG tablet 40 mg PO DAILY RF: 0 fenofibric acid (choline) [Trilipix] 135 MG capsule,delayed release(DR/EC) 135 mg PO DAILY RF: 0 multivitamin Tablet 1 tab PO DAILY RF: 0 levothyroxine [Synthroid] 25 mcg Tablet 25 mcg PO DAILY RF: 0 Primary Care Provider: Birgit Mcclelland Referrals: Birgit Mcclelland DO [Primary Care Provider] - 1 Week if not improving Activity Restrictions/Additional Instructions: Plenty of fluids and rest. Alternate Tylenol and Motrin for fever. Warm salt water gargling for your throat along with throat lozenges. Follow-up with your doctor if not improving. Disposition Disposition: Home, Self Care
== END 2021-03-25 21:13 | disposition home or self-care (01) ==
PROVIDERS: Emergency Provider Emergency Medicine; PCP Internal Medicine
DX: J06.9 Acute upper respiratory infection, unspecified (principal)
CPT/HCPCS: 87426; 87880; 99282

== ENCOUNTER → 2022-03-02 | Outpatient (CLI) | payer OTHER, SELFPAY ==
--- NOTE | 2022-03-02 15:20 | CT_ITS ---
EXAM: CT RIGHT LOWER EXTREMITY WITHOUT INTRAVENOUS CONTRAST CLINICAL INDICATION: VARUS DEFORMITY TECHNIQUE: Helically acquired images were obtained of the right lower extremity without intravenous contrast. 2-D reformats were performed by the technologist. This CT exam was performed using one or more of the following dose reduction techniques: automated exposure control, adjustment of the mA and/or kV according to patient size, and/or use of iterative reconstruction technique. This report was created using [employer] report generation technology. RADIATION DOSE: CTDIvol = 18.97 mGy, DLP = 1518.91 mGy-cm. COMPARISON: None. FINDINGS: BONES/JOINTS: Small bump along the superior lateral aspect of the right femoral head neck junction. Marked right knee joint medial compartment narrowing with marginal osteophytes. Moderate lateral patellofemoral joint space narrowing with slight marginal osteophytes. Slight knee joint effusion. No acute fracture. No subluxation. Normal alignment. No sclerotic or destructive changes. SOFT TISSUES: Unremarkable. No soft tissue swelling or gas. No radiopaque foreign body. CT/Extremity Lower without Contra IMPRESSION: 1. 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 2. Marked right knee joint medial compartment narrowing with marginal osteophytes. 3. Moderate lateral patellofemoral joint space narrowing with slight marginal osteophytes. 4. Slight right knee joint effusion. Electronically Signed: Vince Romero MD at 16:56 EDT ,
== END | disposition home or self-care (01) ==
LOC: CT 14:55
PROVIDERS: PCP Internal Medicine; Referring Provider Specialist; Visit Provider Specialist
DX: M21.161 Varus deformity, not elsewhere classified, right knee (principal)
CPT/HCPCS: 73700

== ENCOUNTER 2022-03-21 05:57 | Day surgery (SDC) | payer OTHER, SELFPAY ==
[2022-02-26 15:29] LABS: Absolute Lymphocyte Count 1.85 X10^3/uL (0.83-4.51); Absolute Neutrophil Count 4.9 X10^3/uL (2.0-7.7); Basophil# 0.03 X10^3/uL; Basophil% 0.4 % (0-1); Eosinophil# 0.15 X10^3/uL; Hematocrit 42.1 % (40-54); Hemoglobin 14.1 g/dL (13.0-16.5); Lymphocyte # 1.85 X10^3/ul (0.83-4.51); Lymphocyte % 24.4 % (19-41); Mean Corp Hgb Conc 33.5 g/dL (32-36); Mean Corpuscular Hgb 29.2 pg (27.0-32.0); Mean Corpuscular Volume 87.2 fL (80-94); Mean Platelet Vol. 10.1 fl (6.2-12.0); Monocyte# 0.56 X10^3/uL; Monocyte% 7.4 % (0-10); NRBC Flagged by Analyzer 0 % (0-5); Neutrophil # 4.94 X10^3/uL (2.7-7.7); Neutrophil % 65.3 % (47-70); Platelet Count 203 K/mm3 (150-450); RBC Distribution Width CV 13.6 % (11.6-14.6); RBC Distribution Width SD 42.9 fl (35.1-43.9); Red Blood Count 4.83 M/mm3 (4.6-6.2); White Blood Count 7.6 K/mm3 (4.4-11.0)
[2022-02-26 15:42] LABS: Prothrombin Time (Protime)PT. 13.1 SECONDS (11.7-14.9)
[2022-02-26 16:13] LABS: ALB/GLOB Ratio 1.1 RATIO (0.9-2.4); AST(SGOT) 38 U/L (15-37); Alanine Aminotransfer ALT/SGPT 62 U/L (16-61); Albumin, Serum 3.9 g/dL (3.2-5.0); Alkaline Phosphatase 56 U/L (45-117); Anion Gap 7 (5-15); BUN 17 mg/dL (7-18); BUN/Creat Ratio 14.2 RATIO (10-20); Calcium,Total 9.3 mg/dL (8.5-10.1); Chloride 108 mmol/L (98-107); Cholesterol 195 mg/dL (200); EST Glomerular Filtration Rate 67 mL/min (>60); Est Glom Filt Rate - Afr Amer 81 mL/min (>60); Globulin 3.5 g/dL (2.2-4.2); Glucose 115 mg/dL (74-106); High Density Lipoprotein 39 mg/dL; Potassium 3.7 mmol/L (3.5-5.1); Protein, Total 7.4 g/dL (6.4-8.2); Sodium Level 143 mmol/L (136-145); Thyroid Stim Hormone (TSH) 3.77 uIU/mL (0.358-3.74); Triglycerides 289 mg/dL; Very Low Density Lipoprotein 58 mg/dL (5-40)
[2022-02-27 07:52] LABS: Magnesium 1.9 mg/dL (1.6-2.6)
--- NOTE | 2022-03-01 12:05 | EKG12_ITS ---
Test Reason : PREOP Blood Pressure : / mmHG Vent. Rate : 080 BPM Atrial Rate : 080 BPM P-R Int : 156 ms QRS Dur : 090 ms QT Int : 340 ms P-R-T Axes : 069 066 049 degrees QTc Int : 392 ms Normal sinus rhythm Normal ECG Confirmed by TATUM MORRISON, ALMA ([id number]), makeup editor LÓPEZ HILTON ([id number]) on 03/02/2022 10:29:45 A M Referred By: Nikolas Maher Confirmed By:BERNADINE WINN MD
--- NOTE | 2022-03-05 07:44 | HP.PCM_ITS ---
History and Physical History and Physical [facility] Patient Name: Sherman Coronel : 1965 From:? DEBBIE BARGER PA-C? DATE OF SURGERY:? 03/21/2022 SCHEDULED PROCEDURE:? right partial knee replacement versus total knee arthroplasty HISTORY OF PRESENT ILLNESS: This is a 56-year-old male who has been having ongoing pain since 2020 with his right knee.? 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 Pain is intermittent and sore.? Pain is increased with going up and down stairs and walking specifically at work.? Pain is located over the anterior and medial knee.? Pain does not awaken him at night.? Patient has tried conservative measures consisting of previous corticosteroid injections.? The first injection gave him significant relief with the second injection given him no relief.? He has tried ceze-gwg-jclnmuj ibuprofen and Tylenol with no relief in symptoms.? He denies previous surgery on the right knee.? Patient denies any recent chest pain, shortness of breath, fevers chills or recent infections.? After failing conservative measures and discussing treatment options with Dr. Nikolas Maher, the patient does wish to proceed with a right partial knee replacement versus total knee arthroplasty.? We are obtaining surgical clearance from the primary care physician Dr. Mcclelland.? Patient has medical history for thyroid disease, history of gout and hypercholesterolemia.? Currently denies any recent chest pain, shortness of breath, fevers chills or recent infections. REVIEW OF SYSTEMS: Review Of Systems: Constitutional: Denies change in appetite, fever and weight change. Cardiovasular: Denies chest pain, heart murmur and irregular heartbeat. Respiratory: Denies cough, pneumonia, shortness of breath, tuberculosis and wheezing. Gastrointestinal: Denies constipation, diarrhea, heartburn, nausea, rectal itching, bloody stools and vomiting. Genitourinary: Denies incontinence. Musculoskeletal: Reports trouble walking, but denies leg swelling, pain and weakness. Skin: Denies Raynaud's, history of shingles and tattoo. Neurological: Denies ambulatory dysfunction, dizziness, numbness/tingling and tremor. Psychiatric: Denies anxiety, insomnia and stress. Hematologic/Lymphatic: Denies anemia, bleeding/bruising tendency and past transfusion. Reviewed, no changes. PAST MEDICAL HISTORY: Advance Care Plan: No Advance Directives Effective Date: 01/04/2021 Past Medical History: Medical Problems: Gout, Hypercholesterolemia, Thyroid Disease Accidents: Fracture - (1981) RT COLLARBONE FX Nose FX - (1981) Surgical Hx: Gallbladder - (2016) TAYLOR Nose FX - (1981) Anesthesia Complications: None Assistive Devices: Glasses - READING Reviewed and updated. 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 Personal Habits:? Cigarette Use: Never Smoked Cigarettes.Smokeless Tobacco: Current Smokeless Tobacco User.E-Cigarette Use: Never used.Alcohol: Has consumed alcohol in the past.Drug Use: Denies Use.Enjoy Exercising: Exercises 1-3 X/Week. Reviewed and updated. VITALS: Ht: 72 Wt: 303lb Wt k.441 BMI: 41.1 BP: 124/78 Pulse: 83 Resp: 16 T: 97.6 T: 36.4C Pain Level: 3 O2SatR: 96 ALLERGIES: No Known Drug Allergy? MEDICATIONS: Oxycodone HCL 5 mg 1-2 tab by mouth every 4 hours, Meloxicam 7.5 mg 1 by mouth twice a day, Famotidine 20 mg 1 by mouth every day, Doxycycline Hyclate 100 mg 1 by mouth twice a day, Zofran Odt 4 mg 1-2 by mouth every 8 hours as needed for nausea, Synthroid 25 mcg 1po qday, Uloric 40 mg 1 by mouth every day, Trilipix 135 mg 1po qday, Multi Vitamin? take one(1) tablet daily., Vitamin D3 50 mcg (2000 Ut) 1 by mouth every day PRE-OP EXAM:? General appearance:NORMAL? ? ? Other: Eyes: Conjunctivae and lids: NORMAL? Pupils: ERR Ears, Nose, Mouth, and Throat: NORMAL? Other: Inspection of lips, teeth and gums: NORMAL? ?Other: Neck: Examination of neck: no masses noted. Respiratory: Assessment of respiratory effort: NORMAL? ?Other: ?Auscultation of lungs: clear to auscultation no wheezes, rhonchi or rales. Cardiovascular:? Auscultation of heart: regular rate and rhythm, no murmurs, gallops or rubs. PHYSICAL EXAMINATION: Patient does walk with an antalgic gait.? Right knee is cool to touch but does have tenderness to palpation over the medial joint line.? No significant tenderness laterally.? He does have varus alignment which is correctable on exam.? He does have fullness with swelling in the posterior knee.? Range of motion: 0 extension to 110 flexion with flexion calf to thigh.? Mild laxity with MCL stress testing.? Sensation intact to light touch. IMAGING STUDIES: Previous x-rays of the right knee reveal varus alignment with medial joint space narrowing, subchondral sclerosis, osteophyte formation consistent with severe stage IV medial compartment osteoarthritis.? Lateral and patellofemoral compar tments appear well maintained. IMPRESSION: 1.? Severe right knee medial compartment osteoarthritis 2.? Morbid obesity with BMI 41.1 3.? History of gout 4.? Hypercholesterolemia 5.? Thyroid disease PLAN: Dr. Nikolas Maher did discuss and review with the patient all treatment options including surgical versus nonsurgical options.? Patient does wish to proceed with the above-stated procedure.? Potential risks, benefits, and complications of the procedure were discussed in detail including but not limited to , infection, nerve and blood vessel damage, persistent pain, numbness, tingling, paresthesias, blood clot, pulmonary embolism, and requirement for possible further surgery.? The patient expressed full understanding and has no further questions for the doctor.? Patient does agree to proceed with the above-stated procedure and has signed the surgery consent form. We discussed the current risks associated with COVID 19.? This does include the risk of exposure while in the hospital.? Patient was reassured local hospitals have low infection rates and are taking all necessary precautions to avoid exposure to patients.? In addition, we discussed strategies that can be used to help limit exposure including those that limit the patient's time in the hospital.? Also using strategies to limit the patient's need for continued inpatient services after being discharged from the hospital.? Patient was notified that we will need to comply with any screening or testing the hospital wishes to perform or that surgery may be delayed for any positive results. This dictation was created using voice recognition software. Phonetic and/or grammatical errors may exist. ___? I have re-examined the patient.? There are no clinical changes since date of exam. ___? See progress notes for changes. ___? Dictated on admission Date: ? ? ?Time: Signature:
[2022-03-21] VITALS (11 sets, daily range): BP systolic 130–157; BP diastolic 66–89; PULSE 65–79; RESP 16–18; TEMP 36.3–36.6; O2SAT 92–99; BMI 42.4
--- NOTE | 2022-03-21 | KNEE_PTH ---
PATIENT: ANTONINO PRASAD LOC: [facility] [place] U#:[id number] AGE/SX: 56/M ROOM: RE03/21/[address]: Dr. Nikolas Maher MD : 1965 BED: DIS: 03/21/2022 SPEC #: [id number] RECD: 03/21/22 12:10 STATUS: ANKIT REMare #: [id number] JACKY: 03/21/22 00:[address]: Nikolas Maher DEPT: SURGICAL PATHOLOGY RECD BY: Semaj Escalante ENTERED: 03/21/22 12:10 SP TYPE: TOTAL KNEE OTHR DR: Dr. Birgit Mcclelland, Tissues: Knee, NOS Procedures: Decalcification bone/plaque Surgery Specimen Level IV HEADER OPERATION: THOMAS, robotic assisted partial knee arthroplasty PRE-OP DIAGNOSIS: Right knee osteoarthritis TISSUE SUBMITTED: Bone and tissue right knee MICROSCOPIC DIAGNOSIS Bone and tissue of right knee, total knee resection: Consistent with severe degenerative joint disease. AM:dakota 03/26/2022 MICROSCOPIC DESCRIPTION Slides are reviewed. GROSS DESCRIPTION Received is one container designated bone and tissue right knee. The specimen consists of multiple fragments of queen-yellow bone measuring in aggregate 5.5 x 5 x 0.8 cm. No soft tissue is identified. A number of bony fragments contain articular surfaces consistent with tibial plateau and femoral condyle and displaying prominent osteophyte formation, eburnation, and bone erosion. Pickling Drum Operator sections are submitted in one cassette after decalcification. / SJ:dakota 03/21/2022 TC:5 CPT: 73457, 95589
[2022-03-21] MEDS: Magnesium 2 GM IV (06:31)
[2022-03-21] MEDS: Lactated Ringers 1,000 ML 999 ML IV ×2 (06:31→10:53)
[2022-03-21] MEDS: Acetaminophen 500 MG Tablet 1000 MG PO (06:31)
[2022-03-21] MEDS: Celecoxib 200 MG Capsule 400 MG PO (06:32)
[2022-03-21] MEDS: Gabapentin 600 MG Tablet PO (06:32)
[2022-03-21 07:05] LABS: Bedside Glucose 173 mg/dL (74-106)
--- NOTE | 2022-03-21 07:15 | PCM.OPRPT ---
Report of Operation Date of Procedure: 03/21/22 Pre-Operative Diagnosis: Right knee primary osteoarthritis Post-Operative Diagnosis: Right knee primary osteoarthritis Surgery/Procedure Performed:: Right medial unicompartmental knee replacement Description of Surgical Findings:: Patellofemoral and lateral compartments were appropriate with minimal wear. Stable knee. Surgeon: Nikolas Maher dermatologist and dermatopathologist: Bhavin Fragoso Type of Anesthesia: General Anesthesiologist: Jerrell Langston Special Medications: 2 g Ancef, 1 g TXA at incision, 1 g TXA closure, 10 mg Decadron, joint cocktail (5 mg Duramorph, 30 mL of 0.5% Ropivicaine, 1000 units of epinephrine, 30 mg of Toradol) Specimen's removed: Bony cuts Estimated Blood Loss (mL): 50 Fluids Replaced: 1000 ml Description of Procedure: Implants used: 1. Chevy size 6 femur 2. Chevy size 6 tibia 3. Chevy 9 mm polyethylene component Brief history operative indications: 56-year-old m with history of R knee anterior medial varus osteoarthritis with radiographic findings with loss of joint space, osteophyte formation and subchondral sclerosis. Failed conservative measures as mentioned in the H&P. Discussion of total knee arthroplasty as well as risk and benefits were discussed the patient including but not limited to blood loss, DVTs, PEs, neurovascular damage, general risk of anesthesia including loss of life, and stiffness or instability were discussed with patient. Patient demonstrated understanding and was able to sign informed consent. Procedure: On the date of procedure patient's R lower extremity was marked in the preoperative area. The patient was then taken back to the operating room where the patient was placed on the table in the supine position. All bony prominences were identified a well-padded. Anesthesia assumed control of the C-spine and airway and remained controlled throughout the remainder of the procedure. A tourniquet was placed on the R upper thigh and the leg was prepped in a sterile fashion. The surgeon then scrubbed at this time. Upon reentering the room R lower extremity was draped in a standard orthopedic fashion. A timeout was then called and everyone agreed upon the side, the site, the procedure to be performed, patient's identity and antibiotics given. Esmarch bandage was used to exsanguinate the extremity and the tourniquet was placed up to 250 mmHg with the knee in flexion. A midline skin incision was made and sharp dissection was taken down through skin subcutaneous tissue and fat. The standard medial parapatellar incision was made and the patella was subluxed medially. The standard minimal MCL release was done and a minimal fat pad for visualization. At this time we directed our attention towards the placement of the robotic navigation pins. 2 pins were placed in the tibia handbreadth below the tibial tubercle and 2 pins were placed in the femur with the patella in the trochlear groove 1 handbreadth above the patella. Bicortical fixation was obtained on all 4 pins. Once these pins were placed the arrays and checkpoints were placed and the femur and tibia were registered. After registering the bony landmarks bone spurs were removed and the soft tissues were tensioned and this intraoperative information was used to make intraoperative adjustments to implant position and balance the knee. The robotic arm was brought in and our attention was then directed towards the femur at this time based on our preoperative and intraoperative planning the size 6 femoral component was burred appropriately to the distal femur. Once we had appropriately burred the distal femur the pegs and he will were also burred. Next our attention was directed to the tibia. Where using our preoperative plan we buried the proximal tibia for a size 6 tibial component and then appropriately burred the pegs. Once we had burred the femur and the tibia all excess osteophytes were again removed. The trial components were placed in the tibial trial component was used to press the posterior keel. The knee was taken through range of motion and balancing was verified using the robotic navigation. Once we were happy with our components trial components were removed and the bone was repaired reaming the distal femur and using the toothbrush saw to slot the proximal tibia. Once the bone was adequately prepared the knee was scoped. Out normal saline and 40 mL of joint cocktail was injected in the posterior medial knee. The bone ends were appropriately dried and once the cement was ready the final components were cemented into place with the trial polyethylene and held at 20? flexion. Once the cement had adequately cured and all cement was removed and the final 9 millimeter polyethylene was put into place and the final knee showed is good patella tracking and well-balanced knee without overcorrection. It should be noted that throughout the procedure the MCL was protected during all bony cuts by my assistant oceanographer. Once the final components were placed a the wound was copiously irrigated with 500 mL dilute Betadine solution followed by 1 L of normal saline solution and the periarticular injection was given. The wound was closed in a layer hanley fashion using #1 vicryl interrupted sutures for the arthrotomy, 2-0 interrupted Vicryl suture for the subcuticular layer and yvonne for final skin closure. A sterile compressive dressing was then placed. The patient was then awakened from anesthesia, transferred to the [facility] and transferred to the PACU for recovery. Post op plan DVT ppx: ASA 81mg BID for six weeks, thigh high compression stockings for 2 weeks Follow up: in office in 2 weeks for wound check PT: to start POD #0 at hospital, outpatient PT should be arranged. Doxycycline 100 mg twice daily due to patient's high risk nature with BMI greater than 40. During the course of the procedure the physician dean of instruction (PE) played a vital role. Their intimate knowledge of my steps in the procedure aided in safe and expedient completion of the procedure. The PE played a vital rolls in positioning particularly in obtaining the appropriate positioning of the sacral bump. The PE was also vital in the retraction of soft tissues during the exposure and especially the femoral work as this is a vital part of the procedure to prevent complications and fractures. The PE was also vital and protecting soft tissues during times of bony cuts and reaming. He also played a vital role in closure with my direct supervision. The PE was also important during reduction and dislocation of the joint and trials intraoperatively. Complications no intra-operative complications Admit VTE Documentation VTE Present on Admission: No VTE Mechan Device Prophylaxis: SCD's and Thigh High KAROL Hose VTE Pharm Prophylaxis ordered?: Yes
[2022-03-21] MEDS: dexAMETHasone 10 MG/ML Vial IV (08:10)
[2022-03-21] MEDS: TXA 1000mg in NS100 100ml (IVPB at Incision) 660 MG IV (08:20)
[2022-03-21] MEDS: TXA 1000mg in NS100 100ml (IVPB at Closure) 660 MG IV (09:26)
--- NOTE | 2022-03-21 10:30 | RAD_ITS ---
INDICATION: tka -- in PACU EXAMINATION/TECHNIQUE: X-RAY - RIGHT XR Knee 1 or 2 Views 2 VIEWS COMPARISON: 01/02/2021.. FINDINGS: Medial right knee prosthesis demonstrate unremarkable alignment, overlying soft tissue prominence consistent with postoperative changes. No evidence of lucency surrounding the prosthesis. No evidence of cortical irregularity or lucency to suggest a fracture. Mild degenerative bone changes seen. RAD/Knee 1 or 2 Views IMPRESSION: Unremarkable alignment of the medial right knee prosthesis, postoperative changes no evidence of complications. Electronically Signed: Owen Couch MD at 11:11 EDT ,
[2022-03-21] MEDS: Ketorolac 30 MG/ML Syringe IV (10:57)
[2022-03-21] MEDS: Lactated Ringers 1,000 ML 125 ML IV (11:37)
[2022-03-21] MEDS: Cefazolin 1 GM/50 ML BAG IV (12:08)
== END 2022-03-21 13:39 | disposition home or self-care (01) ==
LOC: SDC 05:58 → AC 05:59
PROVIDERS: Anesthesiology; PCP Internal Medicine; Referring Provider Specialist; Visit Provider Specialist
PROC: (CPT 27442; principal; 2022-03-21 07:30)
DX: M17.11 Unilateral primary osteoarthritis, right knee (principal); Z68.41 Body mass index [BMI] 40.0-44.9, adult; E66.01 Morbid (severe) obesity due to excess calories; M10.9 Gout, unspecified; E78.00 Pure hypercholesterolemia, unspecified; E03.9 Hypothyroidism, unspecified; F17.220 Nicotine dependence, chewing tobacco, uncomplicated; Z79.899 Other long term (current) drug therapy
CPT/HCPCS: 27442; S2900; 01400; 64447; 36415; 73560; 80053; 80061; 82962; 83735; 84443; 85025; 85610; 85730; 87077; 87081; 88305; 88311; 93005; 97162; C1776; J7120; J2405

== ENCOUNTER 2022-04-05 15:20 | Outpatient (CLI) | payer OTHER, SELFPAY ==
--- NOTE | 2022-04-05 15:41 | RAD_ITS ---
EXAM: XR RIGHT KNEE COMPLETE, 4 OR MORE VIEWS CLINICAL INDICATION: AFTERCARE TECHNIQUE: Four or more views of the right knee. This report was created using [employer] report generation technology. COMPARISON: None. FINDINGS: BONES/JOINTS: Hemiarthroplasty with components of the medial articular surfaces of the femur and tibia, the tibial component is depressed, but there is a lucent component between the femoral and tibial components and good alignment. No joint effusion. No acute fracture. SOFT TISSUES: Soft tissue swelling anterior to the infrapatellar tendon on the lateral view may be due to mild swelling or trauma. No radiopaque foreign body. RAD/Knee 4 or More Views IMPRESSION: 1. Superficial soft tissue swelling in the infrapatellar tendon region. 2. Hemiarthroplasty involving the medial knee joint surfaces, with well aligned components. Electronically Signed: Shirin Portillo MD at 2:22 EDT ,
== END 2022-04-05 23:59 | disposition home or self-care (01) ==
LOC: RAD 15:22
PROVIDERS: PCP Internal Medicine; Referring Provider Physician Assistant Surgical; Visit Provider Physician Assistant Surgical
DX: M17.11 Unilateral primary osteoarthritis, right knee (principal); M21.161 Varus deformity, not elsewhere classified, right knee
CPT/HCPCS: 73564

== ENCOUNTER → 2023-06-21 | Outpatient (CLI) | payer OTHER, SELFPAY ==
[2023-06-21 14:40] LABS: Hemoglobin A1c 5.6 % (3.8-5.6)
[2023-06-21 16:05] LABS: Anion Gap 6 (5-15); BUN 13 mg/dL (7-18); BUN/Creat Ratio 9.6 RATIO (10-20); Calcium,Total 9.2 mg/dL (8.5-10.1); Chloride 108 mmol/L (98-107); Creatinine, Serum 1.35 mg/dL (0.70-1.30); EST Glomerular Filtration Rate 58 mL/min (>60); Est Glom Filt Rate - Afr Amer 70 mL/min (>60); Glucose 128 mg/dL (74-106); Potassium 3.3 mmol/L (3.5-5.1); Sodium Level 138 mmol/L (136-145); Thyroid Stim Hormone (TSH) 4.82 uIU/mL (0.358-3.74)
== END | disposition home or self-care (01) ==
LOC: LAB 13:28
PROVIDERS: PCP Internal Medicine; Referring Provider Internal Medicine; Visit Provider Internal Medicine
DX: R73.9 Hyperglycemia, unspecified (principal); N28.9 Disorder of kidney and ureter, unspecified; E03.9 Hypothyroidism, unspecified
CPT/HCPCS: 36415; 80048; 83036; 84443

== ENCOUNTER → 2023-08-16 | Outpatient (CLI) | payer OTHER, SELFPAY ==
--- OUTSIDE RECORDS SUMMARY | 2023-08-16 14:06 | XMS RPT_ITS | CCD ---
Author Name Unknown Address [email or web address] [place] [address] Organization [facility] Care Team Providers Care Supervisor Belt And Link Assembly Name Role Phone STACY Aceves RN, Kelin Starr Unavailable Unavailflorina Aceves RN RN, Kelin Starr Unavailable Unavailabl e Lyle Copeland Unavailable Unavailable Hussain, Elise Unavailable Unavailable Hussain, Elise Unavailable Unavailable Nomi Mcclellandeen Unavailable Dino Alvarenga Unavailable Donis, Laci Unavailable Hussain Cesilia, Elise Unavailable [phone] Dick Moulton Unavailable Fabiana Momin Unavailable Unavailable Magdy, Mckenzie L Unavailable Unavailable Manchak, Yue Unavailable Unavailable Morales Perea Unavailable Unavailable Unavailable Unavailable Nomi Mcclellandeen Unavailable Dino Alvarenga Unavailable Donis, Laci Unavailable Hussain [place], Elise Unavailable Dick Moulton Unavailable Torres Tejeda Unavailable MessengerFabiana Unavailable Unavailable Long, Mckenzie L Unavailable Unavailable Pasquale, willam Unavailable Unavailable Manchak, Yue Unavailable Unavailable Morales Perea Unavailable Unavailable Unavailable Unavailable Hussain [place], Elise Unavailable Gravius, Yissel Unavailable Unavailable Manchak, Yue Unavailable Unavailable Messenger, Fabiana Unavailable Unavailable Slarb, Eboni Unavailable Unavailable Gravius, Yissel Unavailable Unavailable Morales Perea Unavailable Unavailable Unavailable Unavailable Morales Schaefer Unavailable Unavailable Birgit Mcclelland DO Unavailable RobinsonmassimohaileDino Unavailable Laci Dykes Unavailable Elise Wilcox Unavailable Dick Moulton Unavailable Ileana MORRISON, Torres Shoemaker Unavailable Gravius LUCRECIA, Yissel Unavailable Unavailable Merrill KUMAR, Fabiana Unavailable Unavailable Erin SINGER, Yue Unavailable Unavailable Silvano BROWNN, Morales Unavailable Unavailable Unavailable Unavailable Unavailable Unavailable Birgit Mcclelland DO Unavailable Gris SENIOR STAFF PSYCHOLOGIST, [place] Unavailable Unavailable Allergies Allergy Classification Reported Allergen(s) Allergy Type Date of Onset Reaction(s) Facility NEGATED: Highlighted row has been ruled out! (1 source) allergy to substance [facility] Work Phone: NEGATED: Highlighted row has been ruled out! (1 source) drug allergy 7 [facility] Work Phone: Medications Current Medications Medication Drug Class(es) Dates Sig (Normalized) Sig (Original) febuxostat 40 mg oral tablet (20 sources) Xanthine Oxidase Inhibitor Start: 05-29-2023 take 1 tablet by mouth once daily Uloric 40 mg oral tablet 1 (one) Tablet daily for 0 days Quantity: 90 {Tablet} Refills: 0 Ordered: 29-May-2023 Birgit Mcclelland DO, DO, Kathleen Start : 29-May-2023 Active Completed/Discontinued Medications Medication Drug Class(es) Dates Sig (Normalized) Sig (Original) [id number] 200 actuat albuterol 0.09 mg/actuat metered dose inhaler (20 sources) beta2-Adrenergic Agonist Start: 07-25-2012 End: 04-09-2013 take 2 puff(s) by inhalation three times daily PROAIR HFA, 108 (90 Base)MCG/ACT (Inhalation Aerosol Solution) 2 (two) Puff(s) tid for 0 days Quantity: 1 {Aerosol_Soln} Refills: 0 Ordered: 09-Apr-2013 Fabiana Momin RN Start : 25-Jul-2012 End : 09-Apr-2013 Inactive Problems Active Problems Problem Classification Problem Date Documented Date Episodic/Chronic Adjustment disorders (20 sources) Reaction to severe stress, unspecified; Translations: [Stress-related problem] 03-12-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 Administrative/social admission (20 sources) Counseling procedure with explicit context; Translations: [Patient encounter status] Resolved: 11-28-2018 03-12-2018 Episodic Allergic reactions (2 sources) Dermatitis, unspecified; Translations: [Dermatitis, unspecified] Onset: 02-28-2018 Episodic Cardiac dysrhythmias (20 sources) Tachycardia; Translations: [Tachycardia] Resolved: 02-26-2022 03-12-2018 Episodic Chronic obstructive pulmonary disease and bronchiectasis (20 sources) Bronchitis; Translations: [Bronchitis] Resolved: 04-09-2013 05-24-2015 Episodic Chronic obstructive pulmonary disease and bronchiectasis (14 sources) Chronic obstructive pulmonary disease and bronchiectasis Coagulation and hemorrhagic disorders (20 sources) Platelet count below reference range; Translations: [Thrombocytopenia] 04-18-2020 Chronic Diabetes mellitus without complication (20 sources) Hyperglycemia; Translations: [Hyperglycemia] 04-01-2019 Episodic Past or Other Problems Problem Classification Problem Date Documented Date Episodic/Chronic Coronary atherosclerosis and other heart disease (20 sources) Coronary atherosclerosis and other heart disease Inflammation, infection of eye (3 sources) Acute conjunctivitis; Translations: [Unspecified acute conjunctivitis, unspecified eye] Onset: 09-02-2016 09-05-2016 Episodic Mood disorders (20 sources) Mood disorders; Translations: [Major depressive disorder, single episode, unspecified] 03-12-2018 Nonspecific chest pain (3 sources) Chest pain; Translations: [Other chest pain] Onset: 02-15-2016 02-15-2016 Episodic Other injuries and conditions due to external causes (20 sources) Fracture of bone; Translations: [Fracture] Resolved: 01-03-2009 04-09-2013 Episodic Results Test Name Value Interpretation Reference Range Facil ity Vital Signs Date Time Vital Sign Value Performing Clinician Facility 05-22-2023 13:47-0400 Body height 180.34 cm Brendon Landry LPN [facility] Work Phone: 05-22-2023 13:47-0400 Body mass index (BMI) [Ratio] 41.35 kg/m2 [facility] Work Phone: 05-22-2023 13:47-0400 Body surface area Derived from formula 2.[address] [facility] Work Phone: 05-22-2023 13:47-0400 Body temperature 97.6 [degF] [facility] Work Phone: 05-22-2023 13:47-0400 Body weight 134.[address] [facility] Work Phone: 05-22-2023 13:47-0400 Diastolic blood pressure 72 mm[Hg] [facility] Work Phone: Encounters Encounter Date Encounter Type Care Provider Facility Start: 05-22-2023 End: 05-22-2023 Patient encounter status [facility] Work Phone: Start: 05-22-2023 End: 05-22-2023 Periodic preventive med est patient 40-64yrs Birgit Stas DO Work Phone: [facility] Start: 04-20-2022 End: 04-20-2022 Patient encounter status Yissel Milan [facility] Work Phone: Start: 04-20-2022 End: 04-20-2022 Periodic preventive med est patient 40-64yrs Birgit Stas DO Work Phone: [facility] Start: 02-26-2022 End: 02-26-2022 Office outpatient new 30 minutes Birgit Stas DO Work Phone: [facility] Start: 02-26-2022 End: 02-26-2022 Preoperative state Birgit Stas DO Work Phone: [facility] Start: 02-26-2022 Review Birgit Fearo n DO Work Phone: [facility] Start: 03-17-2021 End: 03-17-2021 Patient encounter procedure Birgit Mcclelland DO Work Phone: [facility]; [facility] Work Phone: Start: 03-17-2021 End: 03-17-2021 Periodic preventive med est patient 40-64yrs Birgit Mcclelland DO Work Phone: [facility] Start: 04-18-2020 End: 04-18-2020 Patient encounter status Birgit Mcclelland DO Work Phone: [facility]; [facility] Work Phone: Start: 04-18-2020 End: 04-18-2020 Periodic preventive med est patient 40-64yrs Birgit Mcclelland [facility] Start: 04-18-2020 Review Birgit Mcclelland [facility] Start: 04-11-2020 End: 04-11-2020 Lab Order Birgit Mcclelland [facility] Start: 09-09-2019 End: 09-09-2019 Lab Order Birgit Mcclelland [facility] Start: 09-09-2019 End: 09-09-2019 Office outpatient visit 15 minutes Birgitcatrachita Mcclelland [facility] Start: 04-01-2019 End: 04-01-2019 Phone Encounter Birgit Mcclelland [facility] Start: 04-01-2019 End: 04-01-2019 Patient encounter procedure Birgit Mcclelland DO Work Phone: [facility]; [facility] Work Phone: Start: 04-01-2019 End: 04-01-2019 Periodic preventive med est patient 40-64yrs Birgit Mcclelland [facility] Start: 11-28-2018 End: 12-02-2018 Ophthalmic examination and evaluation Birgit Mcclelland DO Work Phone: [facility] Start: 11-28-2018 End: 12-02-2018 Phone Encounter Birgit Mcclelland [facility] Start: 11-28-2018 Review Birgit Mcclelland [facility] Start: 03-12-2018 End: 03-12-2018 Patient encounter status Birgit Mcclelland DO Work Phone: [facility]; [facility] Work Phone: Start: 03-12-2018 End: 03-12-2018 Periodic preventive med est patient 40-64yrs Birgit Mcclelland [facility] Start: 02-28-2018 Patient encounter Elise [facility] Start: 02-26-2018 End: 02-26-2018 Office outpatient visit 25 minutes Birgit Mcclelland [facility] Start: 02-11-2018 End: 02-11-2018 Lab Order Birgit Stas [facility] Start: 02-07-2018 End: 02-07-2018 Annotation/Addendum Birgit Mcclelland [facility] Start: 02-03-2018 End: 02-03-2018 Phone Encounter Birgit Jaquze [facility] Start: 02-03-2018 End: 02-03-2018 Office outpatient visit 15 minutes Birgit Mcclelland [facility] Start: 03-22-2017 End: 03-22-2017 Office outpatient visit 10 minutes Birgit Mcclelland [facility] Start: 03-08-2017 End: 03-08-2017 Patient encounter procedure Birgit Mcclelland DO Work Phone: [facility] Start: 03-08-2017 End: 03-08-2017 Periodic preventive med est patient 40-64yrs Birgit [facility] Start: 11-02-2016 End: 11-02-2016 Office outpatient visit 15 minutes Birgit Mcclelland [facility] Start: 10-31-2016 End: 10-31-2016 Office outpatient visit 25 minutes Birgit Mcclleland [facility] Start: 04-10-2016 End: 04-10-2016 Office outpatient visit 15 minutes Birgit Mcclelland [facility] Start: 04-10-2016 End: 04-10-2016 Patient encounter status Birgit Mcclelland DO Work Phone: [facility] Start: 03-16-2015 End: 03-16-2015 Phone Encounter Birgit Mcclelland [facility] Start: 03-04-2015 End: 03-04-2015 Annotation/Addendum Birgit Mcclelland [facility] Start: 03-04-2015 End: 03-04-2015 Office outpatient visit 25 minutes Birgit Mcclelland [facility] Start: 10-29-2014 End: 10-29-2014 Office outpatient visit 15 minutes Birgit Mcclelland [facility] Start: 09-29-2014 End: 09-29-2014 Office outpatient visit 15 minutes Birgit Mcclelland [facility] Start: 09-29-2014 End: 09-29-2014 Office outpatient visit 15 minutes Birgit Mcclelland [facility] Start: 04-14-2014 End: 04-14-2014 Office outpatient visit 15 minutes Birgit Mcclelland [facility] Start: 04-14-2014 End: 04-14-2014 Patient encounter status Birgit Mcclelland DO Work Phone: [facility] Start: 04-09-2013 End: 04-09-2013 Patient encounter Birgit Mcclelland [facility] Start: 04-09-2013 End: 04-09-2013 Patient encounter status Birgit Mcclelland DO Work Phone: [facility] Start: 07-25-2012 End: 07-25-2012 Office outpatient visit 25 minutes Birgit Mcclelland [facility] Start: 03-06-2012 End: 03-07-2012 Patient encounter Birgit Mcclelland [facility] Start: 03-06-2012 End: 03-07-2012 Patient encounter status Birgit Mcclelland DO Work Phone: [facility] Start: 04-26-2011 End: 04-26-2011 Patient encounter Birgit Mcclelland [facility] Start: 12-23-2008 End: 12-23-2008 Historical Summary Birgit Mcclelland [facility] Start: 12-17-2008 End: 12-17-2008 Office outpatient new 20 minutes Birgit Mcclelland [facility] Ophthalmic examinati on and evaluation Yissel Gravius [facility] Work Phone: Ophthalmic examinati on and evaluation Yissel Gravius [facility] Work Phone: Ophthalmic examinati on and evaluation Yissel Gravius [facility] Work Phone: Ophthalmic examinati on and evaluation Yissel Gravius [facility] Work Phone: Ophthalmic examinati on and evaluation Brendon Gris SENIOR STAFF PSYCHOLOGIST [facility]; [facility] Work Phone: Patient encounter procedure Yissel Gravius SUPERVISOR PRODUCTION MANAGING [facility] Work Phone: Patient encounter procedure Yissel Ibrahimaius SUPERVISOR PRODUCTION MANAGING [facility]; [facility] Work Phone: Patient encounter procedure Yissel Alexandraius SUPERVISOR PRODUCTION MANAGING [facility]; [facility] Work Phone: Patient encounter procedure [facility] SENIOR STAFF PSYCHOLOGIST [facility]; [facility] Work Phone: Patient encounter status Fabiana Momin RN [facility]; [facility] Work Phone: Patient encounter status Fabiana Momin RN [facility]; [facility] Work Phone: Patient encounter status Yissel [place] SUPERVISOR PRODUCTION MANAGING [facility]; [facility] Work Phone: Patient encounter status Yissel Alexandraius SUPERVISOR PRODUCTION MANAGING [facility]; [facility] Work Phone: Preoperative state Birgit batista DO Work Phone: [facility]; [facility] Work Phone: Preoperative state Yissel Alexandraius [facility]; [facility] Work Phone: Preoperative state [facility] SENIOR STAFF PSYCHOLOGIST [facility]; [facility] Work Phone: Procedures Date Procedure Procedure Detail Performing Clinician Start: 04-05-2022 End: 04-06-2022 Knee 4 or More Views Procedure Note: See Note; NOTES: [facility] Imaging Services [address] [place] [address] Knee 4 or More Views MR#: [id number] Acct: [id number] Name: SHERMAN CORONEL Rep #: [id number] : 1965 M 56 From: Shirni Portillo MD PCP: Dr. Birgit Mcclelland, DO Status: REG CLI Study: Knee 4 or More Views Date of Exam: 04/05/22 Exam# [id number] Ordering Dr: Bhavin Barger PA PA-C EXAM: XR RIGHT KNEE COMPLETE, 4 OR MORE VIEWS CLINICAL INDICATION: AFTERCARE TECHNIQUE: Four or more views of the right knee. This report was created using [employer] report generation technology. COMPARISON: None. FINDINGS: BONES/JOINTS: Hemiarthroplasty with components of the medial articular surfaces of the femur and tibia, the tibial component is depressed, but there is a lucent component between the femoral and tibial components and good alignment. No joint effusion. No acute fracture. SOFT TISSUES: Soft tissue swelling anterior to the infrapatellar tendon on the lateral view may be due to mild swelling or trauma. No radiopaque foreign body. RAD/Knee 4 or More Views IMPRESSION: 1. Superficial soft tissue swelling in the infrapatellar tendon region. 2. Hemiarthroplasty involving the medial knee joint surfaces, with well aligned components. Electronically Signed: Shirin Portillo MD at 2:22 EDT Reading Location ID and State: [facility] / [place] Tel , Service support , CC: SONYA Barger; Dr. Birgit Mcclelland DO Manager Planning: Signed Birigt Mcclelland DO Work Phone: Start: 03-21-2022 End: 03-21-2022 Knee 1 or 2 Views Procedure Note: See Note; NOTES: [facility] Imaging Services [address] [place] [address] Knee 1 or 2 Views MR#: [id number] Acct: [id number] Name: SHERMAN CORONEL Rep #: [id number] : 1965 M [id number] From: Owen Couch MD PCP: Dr. Birgit Mcclelland, Status: [facility] Study: Knee 1 or 2 Views Date of Exam: 03/21/22 Exam# [id number] Ordering Dr: Nikolas Maher MD INDICATION: tka -- in PACU EXAMINATION/TECHNIQUE: X-RAY - RIGHT XR Knee 1 or 2 Views 2 VIEWS COMPARISON: 01/02/2021.. FINDINGS: Medial right knee prosthesis demonstrate unremarkable alignment, overlying soft tissue prominence consistent with postoperative changes. No evidence of lucency surrounding the prosthesis. No evidence of cortical irregularity or lucency to suggest a fracture. Mild degenerative bone changes seen. RAD/Knee 1 or 2 Views IMPRESSION: Unremarkable alignment of the medial right knee prosthesis, postoperative changes no evidence of complications. Electronically Signed: Owen Couch MD at 11:11 EDT Reading Location ID and State: [address] [place] [address] Tel , Service support , CC: Dr. Birgit Mcclelland DO; Dr. Nikolas Maher MD Manager Planning: Signed Birgit Mcclelland DO Work Phone: Start: 03-21-2022 End: 03-21-2022 Operative Report Procedure Note: See Note; NOTES: [facility] Medical Records Department [address] [place] [id number] Operative Report 03/21/22 0715 MR#: [id number] Acct: [id number] Name: SHERMAN CORONEL Rep #: [id number] : 1965 56 From: Nikolas Maher MD PCP: Dr. Birgit Mcclelland DO Status:[facility] Location: [place] [address] Report of Operation Date of Procedure: 03/21/22 Pre-Operative Diagnosis: Right knee primary osteoarthritis Post-Operative Diagnosis: Right knee primary osteoarthritis Surgery/Procedure Performed:: Right medial unicompartmental knee replacement Description of Surgical Findings:: Patellofemoral and lateral compartments were appropriate with minimal wear. Stable knee. Surgeon: Nikolas Maher milk handler: Bhavin Barger Type of Anesthesia: General Anesthesiologist: Jerrell Langston Special Medications: 2 g Ancef, 1 g TXA at incision, 1 g TXA closure, 10 mg Decadron, joint cocktail (5 mg Duramorph, 30 mL of 0.5% Ropivicaine, 1000 units of epinephrine, 30 mg of Toradol) Specimen's removed: Bony cuts Estimated Blood Loss (mL): 50 Fluids Replaced: 1000 ml Description of Procedure: Implants used: 1. Chevy size 6 femur 2. Chevy size 6 tibia 3. Chevy 9 mm polyethylene component Brief history operative indications: 56-year-old m with history of R knee anterior medial varus osteoarthritis with radiographic findings with loss of joint space, osteophyte formation and subchondral sclerosis. Failed conservative measures as mentioned in the H P. Discussion of total knee arthroplasty as well as risk and benefits were discussed the patient including but not limited to blood loss, DVTs, PEs, neurovascular damage, general risk of anesthesia including loss of life, and stiffness or instability were discussed with patient. Patient demonstrated understanding and was able to sign informed consent. Procedure: On the date of procedure patient's R lower extremity was marked in the preoperative area. The patient was then taken back to the operating room where the patient was placed on the table in the supine position. All bony prominences were identified a well-padded. Anesthesia assumed control of the C-spine and airway and remained controlled throughout the remainder of the procedure. A tourniquet was placed on the R upper thigh and the leg was prepped in a sterile fashion. The surgeon then scrubbed at this time. Upon reentering the room R lower extremity was draped in a standard orthopedic fashion. A timeout was then called and everyone agreed upon the side, the site, the procedure to be performed, patient's identity and antibiotics given. Esmarch bandage was used to exsanguinate the extremity and the tourniquet was placed up to 250 mmHg with the knee in flexion. A midline skin incision was made and sharp dissection was taken down through skin subcutaneous tissue and fat. The standard medial parapatellar incision was made and the patella was subluxed medially. The standard minimal MCL release was done and a minimal fat pad for visualization. At this time we directed our attention towards the placement of the robotic navigation pins. 2 pins were placed in the tibia handbreadth below the tibial tubercle and 2 pins were placed in the femur with the patella in the trochlear groove 1 handbreadth above the patella. Bicortical fixation was obtained on all 4 pins. Once these pins were placed the arrays and checkpoints were placed and the femur and tibia were registered. After registering the bony landmarks bone spurs were removed and the soft tissues were tensioned and this intraoperative information was used to make intraoperative adjustments to implant position and balance the knee. The robotic arm was brought in and our attention was then directed towards the femur at this time based on our preoperative and intraoperative planning the size 6 femoral component was burred appropriately to the distal femur. Once we had appropriately burred the distal femur the pegs and he will were also burred. Next our attention was directed to the tibia. Where using our preoperative plan we buried the proximal tibia for a size 6 tibial component and then appropriately burred the pegs. Once we had burred the femur and the tibia all excess osteophytes were again removed. The trial components were placed in the tibial trial component was used to press the posterior keel. The knee was taken through range of motion and balancing was verified using the robotic navigation. Once we were happy with our components trial components were removed and the bone was repaired reaming the distal femur and using the toothbrush saw to slot the proximal tibia. Once the bone was adequately prepared the knee was scoped. Out normal saline and 40 mL of joint cocktail was injected in the posterior medial knee. The bone ends were appropriately dried and once the cement was ready the final components were cemented into place with the trial polyethylene and held at 20??? flexion. Once the cement had adequately cured and all cement was removed and the final 9 millimeter polyethylene was put into place and the final knee showed is good patella tracking and well-balanced knee without overcorrection. It should be noted that throughout the procedure the MCL was protected during all bony cuts by my dietetic assistant. Once the final components were placed a the wound was copiously irrigated with 500 mL dilute Betadine solution followed by 1 L of normal saline solution and the periarticular injection was given. The wound was closed in a layer hanley fashion using #1 vicryl interrupted sutures for the arthrotomy, 2-0 interrupted Vicryl suture for the subcuticular layer and yvonne for final skin closure. A sterile compressive dressing was then placed. The patient was then awakened from anesthesia, transferred to the [facility] and transferred to the PACU for recovery. Post op plan DVT ppx: ASA 81mg BID for six weeks, thigh high compression stockings for 2 weeks Follow up: in office in 2 weeks for wound check PT: to start POD #0 at hospital, outpatient PT should be arranged. Doxycycline 100 mg twice daily due to patient's high risk nature with BMI greater than 40. During the course of the procedure the physician research test engine operator (PE) played a vital role. Their intimate knowledge of my steps in the procedure aided in safe and expedient completion of the procedure. The PE played a vital rolls in positioning particularly in obtaining the appropriate positioning of the sacral bump. The PE was also vital in the retraction of soft tissues during the exposure and especially the femoral work as this is a vital part of the procedure to prevent complications and fractures. The PE was also vital and protecting soft tissues during times of bony cuts and reaming. He also played a vital role in closure with my direct supervision. The PE was also important during reduction and dislocation of the joint and trials intraoperatively. Complications no intra-operative complications Admit VTE Documentation VTE Present on Admission: No VTE Mechan Device Prophylaxis: SCD's and Thigh High KAROL Hose VTE Pharm Prophylaxis ordered?: Yes 03/21/22929 <Electronically signed by Nikolas Maher MD> Cosigner Signature (if applicable): CC: Dr. Birgit Mcclelland DO; Dr. Nikolas Maher MD Signed Birgit Mcclelland DO Work Phone: Start: 03-05-2022 End: 03-21-2022 History and Physical Exam Comments: See Note; NOTES: [facility] Medical Records Department [address] [place] [address] History Physical Exam 03/05/2244 MR#: [id number] Acct: [id number] Name: SHERMAN CORONEL Rep #: [id number] : 1965 56 From: Bhavin ANN PA-C PCP: Dr. Birgit Mcclelland DO Status:PRE [facility] Location: [facility] History and Physical History and Physical [facility] Patient Name: Sherman Coronel : 1965 From:??? BHAVIN BARGER PA-C??? DATE OF SURGERY:??? 03/21/2022 SCHEDULED PROCEDURE:??? right partial knee replacement versus total knee arthroplasty HISTORY OF PRESENT ILLNESS: This is a 56-year-old male who has been having ongoing pain since 2020 with his right knee.??? 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 Pain is intermittent and sore.??? Pain is increased with going up and down stairs and walking specifically at work.??? Pain is located over the anterior and medial knee.??? Pain does not awaken him at night.??? Patient has tried conservative measures consisting of previous corticosteroid injections.??? The first injection gave him significant relief with the second injection given him no relief.??? He has tried [id number] ibuprofen and Tylenol with no relief in symptoms.??? He denies previous surgery on the right knee.??? Patient denies any recent chest pain, shortness of breath, fevers chills or recent infections.??? After failing conservative measures and discussing treatment options with Dr. Nikolas Maher, the patient does wish to proceed with a right partial knee replacement versus total knee arthroplasty.??? We are obtaining surgical clearance from the primary care physician Dr. Mcclelland.??? Patient has medical history for thyroid disease, history of gout and hypercholesterolemia.??? Currently denies any recent chest pain, shortness of breath, fevers chills or recent infections. REVIEW OF SYSTEMS: Review Of Systems: Constitutional: Denies change in appetite, fever and weight change. Cardiovasular: Denies chest pain, heart murmur and irregular heartbeat. Respiratory: Denies cough, pneumonia, shortness of breath, tuberculosis and wheezing. Gastrointestinal: Denies constipation, diarrhea, heartburn, nausea, rectal itching, bloody stools and vomiting. Genitourinary: Denies incontinence. Musculoskeletal: Reports trouble walking, but denies leg swelling, pain and weakness. Skin: Denies Raynaud's, history of shingles and tattoo. Neurological: Denies ambulatory dysfunction, dizziness, numbness/tingling and tremor. Psychiatric: Denies anxiety, insomnia and stress. Hematologic/Lymphatic: Denies anemia, bleeding/bruising tendency and past transfusion. Reviewed, no changes. PAST MEDICAL HISTORY: Advance Care Plan: No Advance Directives Effective Date: 01/04/2021 Past Medical History: Medical Problems: Gout, Hypercholesterolemia, Thyroid Disease Accidents: Fracture - (1981) RT COLLARBONE FX Nose FX - (1981) Surgical Hx: Gallbladder - (2016) TAYLOR Nose FX - (1981) Anesthesia Complications: None Assistive Devices: Glasses - READING Reviewed and updated. 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 Personal Habits:??? Cigarette Use: Never Smoked Cigarettes.Smokeless Tobacco: Current Smokeless Tobacco User.E-Cigarette Use: Never used.Alcohol: Has consumed alcohol in the past.Drug Use: Denies Use.Enjoy Exercising: Exercises 1-3 X/Week. Reviewed and updated. VITALS: Ht: 72 Wt: 303lb Wt k.441 BMI: 41.1 BP: 124/78 Pulse: 83 Resp: 16 T: 97.6 T: 36.4C Pain Level: 3 O2SatR: 96 ALLERGIES: No Known Drug Allergy??? MEDICATIONS: Oxycodone HCL 5 mg 1-2 tab by mouth every 4 hours, Meloxicam 7.5 mg 1 by mouth twice a day, Famotidine 20 mg 1 by mouth every day, Doxycycline Hyclate 100 mg 1 by mouth twice a day, Zofran Odt 4 mg 1-2 by mouth every 8 hours as needed for nausea, Synthroid 25 mcg 1po qday, Uloric 40 mg 1 by mouth every day, Trilipix 135 mg 1po qday, Multi Vitamin??? take one(1) tablet daily., Vitamin D3 50 mcg (2000 Ut) 1 by mouth every day PRE-OP EXAM:??? General appearance:NORMAL? Other: Eyes: Conjunctivae and lids: NORMAL??? Pupils: ERR Ears, Nose, Mouth, and Throat: NORMAL??? Other: Inspection of lips, teeth and gums: NORMAL?Other: Neck: Examination of neck: no masses noted. Respiratory: Assessment of respiratory effort: NORMAL?Other: ?Auscultation of lungs: clear to auscultation no wheezes, rhonchi or rales. Cardiovascular:??? Auscultation of heart: regular rate and rhythm, no murmurs, gallops or rubs. PHYSICAL EXAMINATION: Patient does walk with an antalgic gait.??? Right knee is cool to touch but does have tenderness to palpation over the medial joint line.??? No significant tenderness laterally.??? He does have varus a lignment which is correctable on exam.??? He does have fullness with swelling in the posterior knee.??? Range of motion: 0 extension to 110 flexion with flexion calf to thigh.??? Mild laxity with MCL stress testing.??? Sensation intact to light touch. IMAGING STUDIES: Previous x-rays of the right knee reveal varus alignment with medial joint space narrowing, subchondral sclerosis, osteophyte formation consistent with severe stage IV medial compartment osteoarthritis.??? Lateral and patellofemoral compartments appear well maintained. IMPRESSION: 1.??? Severe right knee medial compartment osteoarthritis 2.??? Morbid obesity with BMI 41.1 3.??? History of gout 4.??? Hypercholesterolemia 5.??? Thyroid disease PLAN: Dr. Nikolas Maher did discuss and review with the patient all treatment options including surgical versus nonsurgical options.??? Patient does wish to proceed with the above-stated procedure.??? Po tential risks, benefits, and complications of the procedure were discussed in detail including but not limited to , infection, nerve and blood vessel damage, persistent pain, numbness, tingling, paresthesias, blood clot, pulmonary embolism, and requirement for possible further surgery.??? The patient expressed full understanding and has no further questions for the doctor.??? Patient does agree to proceed with the above-stated procedure and has signed the surgery consent form. We discussed the current risks associated with COVID 19.??? This does include the risk of exposure while in the hospital.??? Patient was reassured local hospitals have low infection rates and are taking all necessary precautions to avoid exposure to patients.??? In addition, we discussed strategies that can be used to help limit exposure including those that limit the patient's time in the hospital.??? Also using strategies to limit the patient's need for continued inpatient services after being discharged from the hospital.??? Patient was notified that we will need to comply with any screening or testing the hospital wishes to perform or that surgery may be delayed for any positive results. This dictation was created using voice recognition software. Phonetic and/or grammatical errors may exist. ___??? I have re-examined the patient.??? There are no clinical changes since date of exam. ___??? See progress notes for changes. ___??? Dictated on admission Date: ?Time: Signature: 03/05/22 0744 <Electronically signed by Bhavin ANN PA-C> Cosigner Signature (if applicable): CC: SONYA Barger; Dr. Birgit Mcclelland, DO Signed Birgit Mcclelland DO Work Phone: Start: 03-02-2022 End: 03-02-2022 Extremity Lower without Contra Comments: See Note; NOTES: [facility] Imaging Services [address] [place] [id number] Extremity Lower without Contra MR#: [id number] Acct: [id number] Name: SHERMAN CORONEL Rep #: [id number] : 1965 M 56 From: Vince Valenzuela PCP: Dr. Birgit Mcclelland, Status: REG CLI Study: Extremity Lower without Contra Date of Exam: 0 03/02/22 Exam# [id number] Ordering Dr: Nikolas Maher MD EXAM: CT RIGHT LOWER EXTREMITY WITHOUT INTRAVENOUS CONTRAST CLINICAL INDICATION: VARUS DEFORMITY TECHNIQUE: Helically acquired images were obtained of the right lower extremity without intravenous contrast. 2-D reformats were performed by the technologist. This CT exam was performed using one or more of the following dose reduction techniques: automated exposure control, adjustment of the mA and/or kV according to patient size, and/or use of iterative reconstruction technique. This report was created using [employer] technology. RADIATION DOSE: CTDIvol = 18.97 mGy, DLP = 1518.91 mGy-cm. COMPARISON: None. FINDINGS: BONES/JOINTS: Small bump along the superior lateral aspect of the right femoral head neck junction. Marked right knee joint medial compartment narrowing with marginal osteophytes. Moderate lateral patellofemoral joint space narrowing with slight marginal osteophytes. Slight knee joint effusion. No acute fracture. No subluxation. Normal alignment. No sclerotic or destructive changes. SOFT TISSUES: Unremarkable. No soft tissue swelling or gas. No radiopaque foreign body. CT/Extremity Lower without Contra IMPRESSION: 1. 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 2. Marked right knee joint medial compartment narrowing with marginal osteophytes. 3. Moderate lateral patellofemoral joint space narrowing with slight marginal osteophytes. 4. Slight right knee joint effusion. Electronically Signed: Vince Romero MD at 16:56 EDT , CC: Dr. Birgit Mcclelland DO; Dr. Nikolas Maher MD Manager Planning: Signed Birgit Mcclelland DO Work Phone: Start: 03-01-2022 End: 03-02-2022 12 Lead EKG Comments: See Note; NOTES: [facility] Cardiovascular Services [address] [place] [address] 12 Lead EKG 03/01/22 1206 MR#: [id number] Acct: [id number] Name: SHERMAN CORONEL Rep #: [id number] : 1965 56 From: Chadd Barron MD Attending Dr: Dr. Nikolas Maher MD Status: PRE [facility] Ordering Dr: Nikolas Maher MD Date: 03/01/22 Location: [facility] Sex: M C Admitted: Test Reason : PREOP Blood Pressure : / mmHG Vent. Rate : 080 BPM Atrial Rate : 080 BPM P-R Int : 156 ms QRS Dur : 090 ms QT Int : 340 ms P-R-T Axes : 069 066 049 degrees QTc Int : 392 ms Normal sinus rhythm Normal ECG Confirmed by TATUM MORRISON, ALMA ([id number]), editor sound LÓPEZ HILTON ([id number]) on 03/02/2022 10:29:45 AM Referred By: Nikolas Maher Confirmed By:BERNADINE BARRON MD 03/02/22 1029 Date Chadd Barron MD CC: Dr. Birgit Mcclelland DO; Dr. Nikolas Maher MD Signed Birgit Mcclelland DO Work Phone: Start: 03-25-2021 End: 03-25-2021 Emergency Department Summary Comments: See Note; NOTES: [facility] Medical Records Department [address] [place] [address] Emergency Department Summary 03/25/21 MR#: [id number] Acct: [id number] Name: SHERMAN CORONEL Rep #: [id number] : 1965 55 From: Bhupendra Myers MD PCP: Dr. Birgit Mcclelland DO Status:REG ER Location: ED HPI HPI - URI History of Present Illness Chief Complaint: Sore Throat Informant: patient Onset/Context/Timing Onset: Days Context: Gradual Onset Timing: Continuous Current Severity: Mild Worsened by: Swallowing Associated Symptoms Associated Symptoms: Positive for Productive Cough; Negative for Nasal Congestion, Headache, Sinus Pressure, Myalgias, Nausea, Vomiting, Diarrhea, Shortness of Breath and Chest Pain Narrative Narrative: 55-year-old male history of high triglycerides and gout. 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 For the last 3 to 4 days starting on Saturday has had a sore throat and a productive cough. He denies any vomiting or diarrhea. He did have a subjective fever on Saturday. He has been vaccinated for Covid. Prior similar symptoms: Yes Recent Illness/Hospitalization: No ROS ROS ED ROS Narrative Subjective fever, sore throat cough. No shortness of breath. No vomiting or diarrhea. Review of Systems ROS Unobtainable: Denies due to encephalopathy Constitutional Constitutional ED: Reports fever(s) Eyes Eyes: Denies change in vision ENT ENT ED: Reports sore throat; Denies ear pain Cardiovascular Cardiovascular: Denies chest pain Respiratory/Chest Respiratory/Chest: Reports cough and sputum; Denies dyspnea Gastrointestinal Gastrointestinal: Denies abdominal pain, diarrhea, nausea or vomiting Genitourinary Genitourinary ED: Denies dysuria Musculoskeletal Musculoskeletal: Denies myalgias Integumentary Denies rash Neurologic Neurologic: Denies headache(s) Psychiatric Psychiatric: Denies depression Endocrine Endocrinology: Denies polyuria Hematologic/Lymphatic Hematologic/Lymphatic: Denies easy bruising Allergic/Immunologic Allergic/Immunologic ED: Denies urticaria PFSH PFSH Home Medications febuxostat [Uloric] 40 mg PO DAILY 02/12/16 [History Last Taken 03/14/18] fenofibric acid (choline) [Trilipix] 135 mg PO DAILY 02/12/16 [History Last Taken 03/13/18] levothyroxine [Synthroid] 25 mcg PO DAILY 03/25/21 [History Last Taken Unknown] multivitamin 1 tab PO DAILY 03/25/21 [History Last Taken Unknown] Allergy/AdvReac Type Severity Reaction Status Date / Time No Known Allergies Allergy Verified 03/25/21 19:22 Social History Smoking Status: Never smoker EXAM Physical Exam Narrative Exam Narrative: Middle-age male no acute distress vital signs stable afebrile. Pulse ox 90% on room air no signs hypoxia. He does not look septic or toxic. HEENT exam mild posterior pharyngeal erythema. No exudate. No peritonsillar abscess. No trouble swallowing or breathing. No stridor nor drooling. TMs normal. Neck nontender no lymphadenopathy. Trachea midline. Lungs clear to auscultation bilaterally. No rales, rhonchi or wheezing. Currently not coughing. Heart regular rhythm no murmur. Abdomen soft nontender. Moving all extremities. No edema. Back nontender. Skin no rashes. Neurologically is awake and alert. Const Vital Signs: 03/25/21 19:22 03/25/21 19:24 Temperature 98.3 F 98.3 F Temperature Source Temporal Temporal Pulse Rate 86 87 Respiratory Rate 17 16 Blood Pressure 153/91 H 153/91 H Blood Pressure Mean 111 111 Pulse Ox 98 97 Oxygen Delivery Method Room Air Room Air Positive well nourished and well developed General Appearance ED: well developed and NAD; Negative for cyanotic or diaphoretic HEENT Reports TM's clear and moist mucous membranes HEENT Narrative: Mild posterior pharyngeal erythema. No exudate. No abscess. normocephalic and atraumatic; Negative for scalp tenderness Face and Sinus: Negative for sinus tenderness, maxillary instability or facial tenderness External Ear: external ears normal, mastoids normal and no preauricular adenopathy External Auditory Canal: EAC's normal Tympanic Membrane ED: Yes TM's clear and TM's normal bilaterally Tympanic Membrane: TM's normal bilaterally Throat: posterior oropharynx abnormal Eyes PERRL and EOMs intact bilaterally Neck no lymphadenopathy, supple, no meningeal signs and no JVD General: Negative for anterior neck swelling or lymphadenopathy Resp normal respiratory effort and clear to auscultation bilaterally Auscultation: Negative for rales, rhonchi or wheezes Cardio S1 normal heart sound, S2 normal heart sound and no murmurs Rate: regular rate Rhythm: regular rhythm GI non-tender, non-distended and no masses Inspection: Negative for abdominal distention Auscultation: normoactive bowel sounds Palpation: soft; Negative for tender or guarding Back/Spine no CVA tenderness General Back: Negative for CVA tenderness Extremity normal to inspection and full ROM General Extremety ED: Negative for cyanosis or tenderness General Extremity: Negative for cyanosis Neuro oriented x3 Sensorium / Orientation: alert, oriented to person, oriented to place and oriented to time; Negative for orientation impaired, lethargic or stuporous Motor Exam: strength 5/5 throughout Psych mental status grossly normal Skin Lesions: no lesions Rashes: no rashes MDM MDM MDM Narrative Medical decision making narrative: Middle-aged male with sore throat and cough. Rapid strep and Covid test will be obtained. Lungs are clear I do not think he needs an x-ray. Lab Data Attestation: I reviewed the patient's lab results. Lab results narrative: Rapid strep and Covid both negative. Repeat exam at 905 doing well be discharged home. Treated as a viral syndrome. Discharge Plan Triage Chief Complaint: Sore Throat ED Provider: Bhupendra Myers Dx/Rx/DC Orders Clinical Impression: Viral URI Instructions: ED URI, Viral, No Abx (Adult) Prescriptions: No Action febuxostat [Uloric] 40 MG tablet 40 mg PO DAILY RF: 0 fenofibric acid (choline) [Trilipix] 135 MG capsule,delayed release(DR/EC) 135 mg PO DAILY RF: 0 multivitamin Tablet 1 tab PO DAILY RF: 0 levothyroxine [Synthroid] 25 mcg Tablet 25 mcg PO DAILY RF: 0 Primary Care Provider: Birgit Mcclelland Referrals: Birgit Mcclelland DO [Primary Care Provider] - 1 Week if not improving Activity Restrictions/Additional Instructions: Plenty of fluids and rest. Alternate Tylenol and Motrin for fever. Warm salt water gargling for your throat along with throat lozenges. Follow-up with your doctor if not improving. Disposition Disposition: Home, Self Care What to do if you have Problems For any increased pain, shortness of breath, bleeding, nausea or vomiting, chest pain, or any unexpected problems, contact your Primary Care Provider. Call [facility] ([phone]) or report to the closest Emergency Room. Call 911 if necessary. 03/25/212104 <Electronically signed by Bhupendra Myers MD> Cosigner Signature (if applicable): CC: Dr. Birgit Mcclelland DO Signed Birgit Mcclelland DO Work Phone: Start: 01-02-2021 End: 01-03-2021 Knee 4 or More Views Comments: See Note; NOTES: [facility] Imaging Services [address] [place] [address] Knee 4 or More Views MR#: [id number] Acct: [id number] Name: SHERMAN CORONEL Rep #: [id number] : 1965 M 55 From: Taj Haddad MD PCP: Dr. Birgit Mcclelland DO Status: REG CLI Study: Knee 4 or More Views Date of Exam: 01/02/21 Exam# [id number] Ordering Dr: Bhavin Barger PA-C STUDY: X-RAY - RIGHT KNEE REASON FOR EXAM: Male, 55 years old. PAIN IN R KNEE TECHNIQUE: 4 weightbearing view(s) of the knee. COMPARISON: None. FINDINGS: Normal visualized distal femur. Normal visualized proximal tibia and fibula. Normal proximal tibiofibular articulation. There is mild degenerative arthrosis of the medial femorotibial compartment. There is mild degenerative arthrosis of the lateral femorotibial compartment. There is mild degenerative arthrosis of the patellofemoral articulation. The soft tissue structures are unremarkable. RAD/Knee 4 or More Views IMPRESSION: Mild arthrosis Electronically Signed: Jcarlos Haddad MD at 7:46 EDT , Service support , CC: SONYA Barger; Dr. Birgit Mcclelland DO Manager Planning: Signed Birgit Mcclelland DO Work Phone: Start: 03-18-2018 End: 03-18-2018 12 lead ECG Comments: See Note; NOTES: [facility] Cardiovascular Services [address] [place] [address] 12 Lead EKG 03/14/18 1617 MR#: [id number] Acct: [id number] Name: SHERMAN CORONEL Rep #: [id number] : 1965 52 From: Colby Anaya MD Attending Dr: Status: DEP ER Ordering Dr: Yehuda Jones DO Date: 03/14/18 Location: ED Sex: M C Admitted: Test Reason : FACIAL DROOP Blood Pressure : / mmHG Vent. Rate : 083 BPM Atrial Rate : 083 BPM P-R Int : 258 ms QRS Dur : 108 ms QT Int : 368 ms P-R-T Axes : 038 007 -30 degrees QTc Int : 432 ms Sinus rhythm with 1st degree A-V block Nonspecific T wave abnormality Abnormal ECG Confirmed by JACLYN MORRISON, COLBY ([id number]), editor sound FAISAL SWANSON ([id number]) on 03/18/2018 2:15:59 PM Referred By: Dick Moulton Confirmed By:COLBY ANAYA MD 03/18/18 1416 Date Colby Anaya MD CC: Yehuda Jones DO; Birgit Mcclelland DO Signed Birgit Mcclelland Start: 03-17-2018 End: 03-17-2018 Emergency Department Summary Comments: See Note; NOTES: [facility] Medical Records Department [address] [place] [address] Emergency Department Summary 03/14/18 1618 MR#: [id number] Acct: [id number] Name: SHERMAN CORONEL Rep #: [id number] : 1965 52 From: Yehuda Jones DO PCP: Birgit Mcclelland DO Status: DEP ER - ER Visit Summary Date of Service: 03/14/18 Chief Complaint: Facial droop History of Present Illness: The patient is a 52 M who 6 weeks ago developed fever is felt to have a virus. He then developed a rash in his shoulder and became more diffuse. He eventually saw dermatology had a negative biopsy. The patient rash is improved he continues to have generalized myalgias. Went to primary care's office today and had blood work done and then had echocardiogram done today. Patient states that 2 days ago while brushing his teeth he noticed that he had difficult time spitting the toothpaste out and then last night had difficulty drinking a pop. 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 Patient does note bit of a right-sided headache and some pain just anterior inferior to the right ear. He denies any herpetic-like lesions on the face of the scalp. Physical Examination: Afebrile vital signs are stable Gen: Well-nourished well-developed Head: Normocephalic atraumatic Eyes: Perrl EOMI ENT: TMs clear no rhinorrhea moist mucous membranes Neck: Supple no lymphadenopathy no JVD nontender CVS: Regular rate rhythm no murmurs normal S1-S2 Respiratory: No distress clear to auscultation bilaterally chest nontender Abdomen: Soft nontender nondistended normal bowel sounds no masses Back: Nontender Extremity: Nontender no edema Skin: Normal color no rash Neuro: alert orientated 3 patient has normal strength and sensation of the extremities. Looking at the face the patient has right-sided facial droop weakness of the eyelid and weakness of the forehead. There are no herpetic lesions seen. There is no symptomatology seen in the ear canal or the tympanic membrane. Sensations preserved. Psych: Normal affect normal mood Test Results: EKG shows a sinus rhythm with a first-degree AV block at a rate of 83. There were some inferior anterior changes of the T waves compared to his EKG 1-1/[address] the brain was obtained because of the patient's had an recent infections and this was negative. His white count is normal at 7.5 with 75.8 segs. ESR is elevated at 29. CRP is elevated at 33. Troponin is negative. Chest x-ray is negative. Blood cultures were obtained as well as a fungal culture. Emergency Department Course and Treatment: I spoke with cardiology and they were able to read his echocardiogram that he had done today. This does not demonstrate any obvious valvular lesions but a MOI is a better test. Ejection fraction is normal. There is no effusion. There was some mitral valve regurgitation at 1+. I spoke with the patient's infectious disease doctor. He is following the case closely. Clinically the patient has an acute Gutierrez's palsy will be started on prednisone and acyclovir. He will continue to follow-up with his doctor. We talked about the fact that some people with Gutierrez's palsy do not resolve. The patient I spoke at length about keeping him in the hospital this weekend for observation and obtain a MOI on Saturday but the patient does not wish to stay in the hospital if he has to wait until Saturday for the MOI. Patient will return if has any concerns. Impression: 1. Acute right Gutierrez's palsy 2. Fever of unknown origin This note was generated with [employer] / [employer] dictation software. It may contain incorrect words, spelling, and punctuation that were not noted in review of the chart prior to signing ED Disposition - Plan for ED Patient: Disposition: Home or Assisted Living Chief Complaint: Neuro S/Sx Instructions: ED [place] Palsy, ED Fever Unconf Cause Prescriptions: Prednisone [Deltasone] 60 mg PO DAILY #15 tab Valacyclovir HCl [Valacyclovir] 1,000 mg PO TID 7 Days #21 tab Referrals: Dick Moulton MD [STAFF PHYSICIAN] - As soon as possible What to do if you have Problems For any increased pain, shortness of breath, bleeding, nausea or vomiting, chest pain, or any unexpected problems, contact your Primary Care Provider. Call [employer] [facility] ([phone]) or report to the closest Emergency Room. Call 911 if necessary. 03/17/18 0025 <Electronically signed by Yehuda Jones DO> Date Yehuda Karen Cosigner Signature (If Indicated): Date CC: Birgit Mcclelland DO Birgit Mcclelland Start: 03-14-2018 End: 03-14-2018 Echocardiogram Complete Comments: See Note; NOTES: [facility] Cardiovascular Services [address] [place] [address] Echo Complete W/ Contrast 03/14/18 1356 MR#: [id number] Acct: [id number] Name: SHERMAN CORONEL Rep #: [id number] : 1965 52 From: Colby Anaya MD Attending Dr: Dick Moulton MD Status: REG CLI Ordering Dr: Dick Moulton MD Date: 03/14/18 Location: [facility] Sex: M C Admitted: Reason For Study: Murmur, R/O Endocarditis Procedure This was a 2D Doppler, Color Flow transthoracic echocardiogram. The exam was of poor technical quality due to body habitus. The study was technically difficult. Contrast injection was performed. Exam performed in department. Left Ventricle Normal LV size. Left ventricular systolic function is normal. The estimated ejection fraction is 55 %. Transmitral doppler flow suggestive of impaired relaxation of left ventricle. No regional wall motion abnormalities noted. Right Ventricle Normal RV size. Normal systolic function. Atria Normal left atrium. Normal right atrium. No doppler evidence for ASD. Mitral Valve There is no mitral annular calcification. Normal mitral valve. Mild (1+) eccentric mitral valve insufficiency. Tricuspid Valve Normal tricuspid valve. Trivial tricuspid valve insufficiency. Right ventricular systolic pressure estimated to be 23 mmHg. Aortic Valve Trisinus/trileaflet aortic valve. Normal aortic valve. Pulmonic Valve The pulmonic valve is not well visualized. Great Vessels Normal sized aortic root. Pericardium/Pleural No pericardial effusion. Medication Definity0.2ml given slow IV push to enhance endocardial definition. MMode/2D Measurements AND Calculations LVIDd: 5.0 cm IVSd: 1.00 cm Ao root diam: 3.0 cm LVIDs: 3.7 cm LVPWd: 0.92 cm LA dimension: 3.7 cm FS: 26.3 % LAV(MOD-bp): 26.0 ml LA A4 area: 9.7 cm2 RA A4 area: 7.9 cm2 LAV(MOD-bp) Indexed: 10.8 ml/m2 LAV(MOD-sp2): 30.1 ml LAV(MOD-sp4): 22.7 ml Doppler Measurements AND Calculations MV E max estevan: 47.4 cm/sec Lat Peak E' Estevan: 6.7 cm/sec Med Peak E' Estevan: 4.6 cm/sec MV A max estevan: 65.3 cm/sec E/E' lat: 7.1 E/E' med: 10.2 MV E/A: 0.73 Ao V2 max: 101.5 cm/sec LV V1 max: 86.1 cm/sec PA V2 max: 96.4 cm/sec Ao max P.1 mmHg LV V1 max P.0 mmHg Ao V2 mean: 87.5 cm/sec Ao mean P.1 mmHg Ao V2 VTI: 19.4 cm TR max estevan: 221.2 cm/sec TR max P.6 mmHg Interpretation Summary The study was technically difficult. Contrast injection was performed. Left ventricular systolic function is normal. The estimated ejection fraction is 55 %. Mild (1+) eccentric mitral valve insufficiency. Trivial tricuspid valve insufficiency. Right ventricular systolic pressure estimated to be 23 mmHg. Transmitral doppler flow suggestive of impaired relaxation of left ventricle Ordering Physician: Dick Moulton Referring Physician: Birgit Mcclelland Performed By: Miriam Fuentes, TUAN, RVT 03/14/18 174 Date Colby Anaya MD CC: Birgit Mcclelland DO; Dick Moulton MD Date Dictated: 03/14/18 1356 Date Transcribed: 03/14/181740 Manager Planning: Signed Dick Moulton Work Phone: Start: 03-14-2018 End: 03-14-2018 Chest 1 View (Portable) Comments: See Note; NOTES: [facility] Imaging Services [address] [place] [address] Chest 1 View (Portable) MR#: [id number] Acct: [id number] Name: SHERMAN CORONEL Rep #: [id number] : 1965 M 52 From: Sean Snider MD PCP: Birgit Mcclelland DO Status: PRE ER Study: Chest 1 View (Portable) Date of Exam: 03/14/18 Exam# [id number] Ordering Dr: Yehuda Jones DO STUDY: X-RAY CHEST REASON FOR EXAM: Male, 52 years old. Cough, right facial droop. TECHNIQUE: Portable upright chest COMPARISON: 02/03/2018 FINDINGS: The patient is slightly rotated accounting for the differential density of the lung michele. The lungs are clear and expanded. Normal cardiomediastinal silhouette, jennifer and pleural margins. No acute osseous or upper abdominal process. RAD/Chest 1 View (Portable) IMPRESSION: No acute cardiopulmonary process. Electronically Signed: Sean Snider, at 16:53 EDT Tel , Service support , CC: Yehuda Jones DO; Birgit Mcclelland DO Manager Planning: Signed Birgit Mcclelland Start: 03-14-2018 End: 03-14-2018 Brain/Head without Contrast Comments: See Note; NOTES: [facility] Imaging Services [address] [place] [address] Brain/Head without Contrast MR#: [id number] Acct: [id number] Name: SHERMAN CORONEL Rep #: [id number] : 1965 M 52 From: Sean Snider MD PCP: Birgit Mcclelland DO Status: PRE ER Study: Brain/Head without Contrast Date of Exam: 03/14/18 Exam# [id number] Ordering Dr: Yehuda Jones DO STUDY: CT BRAIN WITHOUT CONTRAST REASON FOR EXAM: Male, 52 years old. Headache, right facial droop and numbness for 2 days with slurred speech, question of Gutierrez's palsy. RADIATION DOSAGE (If Supplied By Facility): CTDIvol = ( 60.81 ) mGy, DLP = ( 1067.08 ) mGycm TECHNIQUE: Transaxial CT imaging of the brain was performed without administration of intravenous contrast material. Coronal and sagittal 2-D MPR Individualized dose optimization techniques were used for this CT. COMPARISON: None. FINDINGS: Extracranial soft tissues including orbital contents exhibit no acute abnormality. Craniofacial osseous structures within the field of view exhibit no acute abnormality. Paranasal sinuses, mastoid air cells and middle ear cavities are clear. Normal size ventricles and extra-axial spaces for the patient's age. Normal pituitary, brainstem and cerebellum There is no acute intracranial bleed, mass or mass effect nor any specific evidence of acute territorial infarct. CT/Brain/Head without Contrast IMPRESSION: No acute intracranial process. Electronically Signed: Sean Snider, at 16:51 EDT Tel , Service support , CC: Yehuda Jones DO; Birgit Mcclelland DO Manager Planning: Signed Birgit Mcclelland Start: 02-04-2018 End: 02-04-2018 Emergency Department Summary Comments: See Note; NOTES: [facility] Medical Records Department [address] [place] [address] Emergency Department Summary 02/04/18 1610 MR#: [id number] Acct: [id number] Name: SHERMAN CORONEL Rep #: [id number] : 1965 52 From: Virgil Valle MD PCP: Birgit Mcclelland DO Status: REG ER - ER Visit Summary Date of Service: 02/04/18 Chief Complaint: Fever, chills sweats and diarrhea History of Present Illness: The patient is a 52 M who reports fever documented 102/2.9 F since Saturday. He reports diarrhea starting Saturday. He has not been on any antibiotics. 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 He states he has not cared for any patients with diarrhea or C. difficile. He was seen yesterday by Dick Jung at [facility] and had blood tests ordered as well as blood cultures. Patient does complain of a vertex headache that is not positional and is intermittent. He denies any neck stiffness or pain. He reports intermittent light sensitivity. He denies rhinorrhea, postnasal drainage or sore throat. He denies chest pain, cough, shortness of breath or difficulty breathing. He denies nausea or vomiting. Does report diarrhea since Saturday. He has not noted any blood or mucus in his stool. Is no history of inflammatory bowel disorder. He reports decreased urine output and darker urine. He denies rash. He does, no generalized weakness. Physical Examination: Vital signs are remarkable for blood pressure 1 4781 temperature 99.9 heart rate 105. He is diaphoretic. Head is atraumatic normocephalic. Pupils equal round reactive paradoxic muscle intact sclerae anicteric. TMs normal. Nares patent with no discharge. Posterior pharynx without erythema or exudate. Uvula is midline. Tongue is dry. Heart is rapid and regular without murmur, gallop or rub. Lungs are clear to auscultation with good move air bilaterally. Abdomen is soft nontender with increased bowel sounds. There is no CVA tenderness noted. No dermatologic lesions noted. He is alert oriented with a nonfocal neurologic exam. Distal pulses are palpable. There is no nuchal rigidity. Test Result; CBC is unremarkable. Creatinine is 1.21 with a GFR 76. Yesterday creatinine was 1.59 with a GFR 54. No stool specimen was submitted because he has not had a bowel movement in 3-1/2 hours. Emergency Department Course and Treatment: CBC and BMP were repeated to compare to yesterday's results. Since he reports diarrhea since Saturday and fever with rigors and diaphoresis stool for enteric pathogens was ordered as well as stool for C. difficile. Treatment Plan: IV was established and received 1 L of normal saline wide open. Since his lab values have improved and he has had no diarrhea and 3 and half hours stool cultures were discontinued. He was instructed to follow-up with Dr. Mcclelland if he is symptoms persisted for several more days. Disposition: Discharged home in stable and improved condition Impression: 1. Abdominal pain with diarrhea 2. Fever 3. Mild dehydration 4. Sinus tachycardia documented on monitor This note was generated with [employer] / [employer] dictation software. It may contain incorrect words, spelling, and punctuation that were not noted in review of the chart prior to signing ED Disposition - Plan for ED Patient: Disposition: Home or Assisted Living Chief Complaint: Fever Instructions: ED Diarrhea Viral Referrals: Birgit Mcclelland DO [Primary Care Provider] - 3-5 Days if not improving What to do if you have Problems For any increased pain, shortness of breath, bleeding, nausea or vomiting, chest pain, or any unexpected problems, contact your Primary Care Provider. Call [facility] ([phone]) or report to the closest Emergency Room. Call 911 if necessary. 02/04/18 1809 <Electronically signed by Virgil Valle MD> Date Virgil Valle MD Cosigner Signature (If Indicated): Date CC: Birgit Poole Start: 02-03-2018 End: 02-03-2018 Chest PA and Lateral Comments: See Note; NOTES: [facility] Imaging Services [address] [place] [address] Chest PA and Lateral MR#: [id number] Acct: [id number] Name: SHERMAN CORONEL Rep #: [id number] : 1965 M 52 From: Parag Ramirez MD PCP: Birgit Mcclelland DO Status: REG CLI Study: Chest PA and Lateral Date of Exam: 02/03/18 Exam# [id number] Ordering Dr: Fabiana Salinas SKIN INSTALLER-C STUDY: X-RAY CHEST REASON FOR EXAM: Male, 52 years old. Fever and chills. TECHNIQUE: Frontal and lateral views of the chest. COMPARISON: February 12, 2016. FINDINGS: The lungs are clear and expanded. There is no demonstrated pleural abnormality. Normal size heart. Normal mediastinum and jennifer. Normal visualized pulmonary arteries. Normal visualized aortic arch and descending thoracic aorta. Normal visualized thoracic spine. Normal visualized ribs, clavicles, and shoulders. There is no demonstrated abnormality of the visualized soft tissue structures of the upper abdomen. RAD/Chest PA and Lateral IMPRESSION: Normal x-ray examination of the chest. Electronically Signed: Parag Ramirez MD at 12:30 EDT , Service support , CC: RO Salinas; Birgit Mcclelland DO Manager Planning: Signed Fabiana Salinas Start: 02-12-2017 End: 02-12-2017 Operative Report Comments: See Note; NOTES: [facility] Medical Records Department [address] [place] [address] Operative Report 02/12/17 0855 MR#: [id number] Acct: [id number] Name: SHERMAN CORONEL Rep #: [id number] : 1965 51 From: Dino Alvarenga MD PCP: Birgit Mcclelland DO Status: REG CLI Y Location: [place] [address] Problem List (1) Screen for colon cancer Status: Acute Report of Operation Date of Procedure: 02/12/17 Pre-Operative Diagnosis: Screening colonoscopy Post-Operative Diagnosis: 1. Cecal polyp. 2. Descending colon polyp. 3. Sigmoid polyp Surgery/Procedure Performed:: Colonoscopy with snare biopsy and injection of epinephrine and tattoo of descending colon Description of Surgical Findings:: The patient had a pedunculated polyp in the cecum which was removed with snare biopsy. He also had a very large pedunculated polyp in the descending colon which was taken with snare but this continue to bleed so it required injection of epinephrine and I tattooed the area of the lesion. It was at approximately 40 cm from the rectum. Specimen's removed: 1. Cecal polyp. 2. Descending colon polyp. 3. Sigmoid polyp Description of Procedure: The patient was brought back to the endoscopy suite and placed in left lateral decubitus position. Next a well lubricated finger was placed into the anal canal and a rectal exam was performed. This was normal and then a well-lubricated colonoscope was placed into the rectum and advanced to the cecum. The appendiceal orifice and ileocecal valve were identified. There was a pedunculated polyp in the cecum. This was removed with cautery snare. The scope was then slowly removed to examine the mucosa circumferentially. Another very large polyp was encountered in the descending colon at approximately 40 cm. This was also pedunculated so it was taken with a cautery snare at the stalk. This was removed with a basket because of its size. The scope was placed back into the colon and the stalk was found. It was still bleeding so was injected with epinephrine. It stop bleeding after the injection. I used tattoo to porsha the area of this polyp due to its size. I injected dye circumferentially into 3 areas. Next the scope was slowly withdrawn to the sigmoid colon there was a small polyp in this area which was also taken with snare. Hemostasis was good. The scope was then retroflexed in the rectum was examined and there were no hemorrhoids. The scope was straightened and removed from the patient. The patient tolerated the procedure well. 02/12/17 0859 <Electronically signed by Dino Alvarenga MD> Date Dino Alvarenga MD CC: Dino Alvarenga MD; Birgit Mcclelland DO Signed Birgit Mcclelland Start: 07-13-2016 End: 07-13-2016 Emergency Department Summary Comments: See Note; NOTES: [facility] Medical Records Department [address] [place] [address] Emergency Department Summary MR#: [id number] Acct: [id number] Name: SHERMAN CORONEL Rep #: [id number] : 1965 50 From: Vince Tabares MD PCP: Birgit Mcclelland DO Status: [facility] DATE OF SERVICE: 07/07/2016 CHIEF COMPLAINT: Abdominal pain. HISTORY OF PRESENT ILLNESS: A 50-year-old male, otherwise healthy, presents with abdominal pain. The patient's symptoms began about 3 hours prior to arrival. He describes a sharp stabbing sensation with nausea in the mid epigastric area. He denies any chest pain or shortness of breath. The patient did have similar symptoms in January. He was actually admitted at that time, had a cardiac catheterization, which was normal and an ultrasound, which showed some gallstones, but no evidence of biliary obstruction. He states he has really had no other symptoms since. He denies fevers, chills, weight loss, night sweats. He has not taken anything for his pain. PHYSICAL EXAMINATION: VITAL SIGNS: Afebrile, heart rate in the 40s. GENERAL: Uncomfortable male in no acute distress. HEENT: Head is normocephalic, atraumatic. Pupils equal, round and reactive. Extraocular muscles intact. HEART: Regular bradycardia. LUNGS: Clear. ABDOMEN: Soft. Tender in the right upper quadrant with some voluntary guarding. No peritoneal signs. EXTREMITIES: Show no edema. EMERGENCY DEPARTMENT COURSE: The patient was nauseated and bradycardic. My suspicion is likely vagal syndrome, especially given his recent negative heart catheterization. EKG was obtained, which showed bradycardia, but no evidence of acute ischemia. The patient was given morphine with really no improvement and ____, that he almost had complete resolution of his pain. Screening labs are unremarkable. Right upper quadrant ultrasound was obtained, which does show biliary disease, but no acute obstruction or cholecystitis. On reevaluation, the patient remains pain-free. I do feel this patient is going to require a cholecystectomy, but I do not feel that he needs to be admitted, given his resolution of symptoms and normal labs. The patient was discussed with Dr. Tang, was going to see the patient in follow up. IMPRESSION: Biliary colic. DISPOSITION: Discharged. Vince Tabares MD T: [facility] JOB: [id number] 07/13/16 1531 <Electronically signed by Vince Tabares MD> Date Vince Tabares MD Cosigner Signature (If Indicated): Date CC: Birgit Mcclelland DO Date Dictated: 07/08/16126 Date Transcribed: 07/08/16126 Manager Planning: Signed Birgit Stas Start: 07-12-2016 End: 07-12-2016 Operative Report Comments: See Note; NOTES: [facility] Medical Records Department [address] [place] [address] Operative Report MR#: [id number] Acct: [id number] Name: SHERMAN CORONEL Rep #: [id number] : 1965 50 From: Yehuda Tang MD PCP: Birgit Mcclelland DO Status: DEP [facility] DATE OF SERVICE: 07/10/2016 DATE OF SURGERY: 07/10/2016. PREOPERATIVE DIAGNOSES: Epigastric pain and calculus of the gallbladder without obstruction. POSTOPERATIVE DIAGNOSES: Epigastric pain and calculus of the gallbladder without obstruction with acute cholecystitis. PROCEDURE: Laparoscopic cholecystectomy. SURGEON: Yehuda Tang M.D. ANESTHESIA: General endotracheal intubation. ESTIMATED BLOOD LOSS: Less than 25 mL. FLUID REPLACEMENT: About a liter of crystalloid. ASA: 2. DESCRIPTION OF PROCEDURE: The patient was brought in the operating room, placed in supine position. Under excellent general endotracheal intubation, the abdomen was sterilely prepped and draped in usual fashion. Local was injected infraumbilically. Dissection was carried down the fascia. The fascia was grasped with Erika. Veress needle was placed inside the abdomen. The abdomen was insufflated to 15 torr. A 10/12 trocar was placed without difficulty. Subxiphoid #5 trocar was placed. Inferior to this, another #5 trocar was placed, laterally a #5 trocar was placed, all of these under direct visualization without any injury to underlying structures. Fundus of the gallbladder was grasped and retracted in a cephalad direction. Infundibulum was grasped and retracted laterally. I dissected out the cystic duct, placed Hem-o-Jared clips proximally and distally and ligated the duct, identified the cystic artery. I placed Hem-o-Jared clips proximally and distally and ligated the artery. I delivered the gallbladder from the gallbladder bed with the use of electrocautery. I did have to aspirate the gallbladder to get a better grasp of it in order to do this. It was acutely inflamed and there was a nice edematous plane between the gallbladder and the liver itself. I placed the specimen in specimen bag, delivered it through the umbilical port without difficulty. Irrigated the right upper quadrant. Good hemostasis was noted. Removed all the trocars under direct visualization. Good hemostasis was noted. Closed the fascia and the umbilical port with a [id number] stitch of 0 Vicryl. Skin incisions were closed with subcuticular stitches of 4-0 Monocryl. Steri-Strips were applied. Sterile dressings were applied and the patient tolerated the procedure well. Yehuda Tang MD T: [facility] JOB: [id number] 07/12/165 <Electronically signed by Yehuda Tang MD> Date Yehuda Tang MD Cosigner Signature (If Indicated): Date CC: Yehuda Tang MD; Birgit Mcclelland DO Date Dictated: 07/10/161644 Date Transcribed: 07/10/161644 Manager Planning: Signed Birgit Mcclelland Start: 07-10-2016 End: 07-10-2016 Discharge Instruction Comments: See Note; NOTES: [facility] Medical Records Department [address] [place] [address] Instructions for Home/Discharge Instructions 07/10/16 1406 MR#: [id number] Acct: [id number] Name: SHERMAN CORONEL Rep #: [id number] : 1965 50 From: Yehuda Tang MD PCP: Birgit Mcclelland DO Status: REG [facility] Discharge Diet: Light diet - advance as tolerated Discharge Activity: May Not Drive - for 2-3 days or while taking narcotic pain medications., - - Do not drive, work heavy equipment or sign legal documents for 24 hours. May shower in (days): 1 - with the bandage in place. Additional Activity Instructions:: Pain medication may cause nausea. You should typically eat light foods as you take your pain medications. Pain medication may also cause constipation. If this is a problem for you, please discuss with your doctor. Call your doctor if your incision/area has: Continuous Slow Oozing, Sudden Increased Bleeding, Increased Pain/ Swelling, Increased Redness, Foul Smelling Discharge Call your doctor if you observe: Fever of 101 or Higher Suture Line Care: Avoid Pulling/Pushing, Avoid Pinching/Bending Additional Dressing/Incision Instructions:: Leave operative bandaids on for 2 days. When you remove dressing, leave Steri-Strips on until your follow-up appointment, or until the Steri- Strips fall off on their own. Allergies/Adverse Reactions: Allergies No Known Allergies Allergy (Verified 07/10/16 09:39) Medications to take at Discharge Febuxostat [Uloric] 40 mg PO DAILY 02/12/16 Fenofibric Acid (Choline) [Trilipix] 135 mg PO DAILY 02/12/16 Ondansetron [Zofran Odt] 4 mg PO Q8H PRN PRN #10 tablet 07/08/16 Oxycodone HCl/Acetaminophen [Percocet 5/325] 1 - 2 tablet PO Q4H PRN PRN #20 tablet 07/08/16 Oxycodone HCl/Acetaminophen [Percocet 5/325] 1 - 2 tablet PO Q4H PRN PRN #30 tablet 07/10/16 The following prescriptions were given: Oxycodone HCl/Acetaminophen [Percocet 5/325] 1 - 2 tablet PO Q4H PRN PRN #30 tablet PRN Reason: Pain Primary Care Physician: Birgit Mcclelland DO [Primary Care Provider] - Please Follow Up With: Yehuda Tang - Please call [phone] to schedule an appointment. When: 7 days after your surgery. 07/10/16 1407 <Electronically signed by Yehuda Tang MD> Date Yehuda Tang MD CC: Birgit Poole Start: 07-09-2016 End: 07-09-2016 12 lead ECG Comments: See Note; NOTES: [facility] Cardiovascular Services [address] [address] 12 Lead EKG 07/07/162246 MR#: [id number] Acct: [id number] Name: SHERMAN CORONEL Rep #: [id number] : 1965 50 From: Zeyad Cee MD Attending Dr: Status: DEP ER Ordering Dr: Vince Tabares MD Date: 07/07/16 Location: ED Sex: M C Admitted: Test Reason : CP Blood Pressure : / mmHG Vent. Rate : 045 BPM Atrial Rate : 045 BPM P-R Int : 174 ms QRS Dur : 108 ms QT Int : 464 ms P-R-T Axes : 034 032 025 degrees QTc Int : 401 ms Sinus bradycardia Otherwise normal ECG Confirmed by ZEYAD CEE MD ([id number]), editor sound FAISAL SWANSON ([id number]) on 07/09/2016 3:34:49 PM Referred By: YUMIKO Confirmed By:ZEYAD CEE MD 07/09/16 1534 Date Zeyad Cee MD CC: Birgit Mcclelland DO Date Dictated: 07/07/162246 Date Transcribed: 07/07/162246 Manager Planning: Signed Birgit Mcclelland Start: 07-08-2016 End: 07-08-2016 Discharge Instruction Comments: See Note; NOTES: [facility] Medical Records Department [address] [place] [address] Discharge Instruction 07/08/16 0124 MR#: [id number] Acct: [id number] Name: SHERMAN CORONEL Rep #: [id number] : 1965 50 From: Vince Tabares MD PCP: Birgit Mcclelland DO Status: DEP ER ED Disposition - Plan for ED Patient: Chief Complaint: Abd Pain Instructions: ED Abdominal Pain Gallstone Poss Prescriptions: Oxycodone HCl/Acetaminophen [Percocet 5/325] 1 - 2 tablet PO Q4H PRN PRN #20 tablet PRN Reason: Pain Ondansetron [Zofran Odt] 4 mg PO Q8H PRN PRN #10 tablet PRN Reason: Nausea Referrals: Yehuda Tang MD [STAFF PHYSICIAN] - What to do if you have Problems For any increased pain, shortness of breath, bleeding, nausea or vomiting, chest pain, or any unexpected problems, contact your Primary Care Provider. Call [facility] ([phone]) or report to the closest Emergency Room. Call 911 if necessary. 07/08/16 0150 <Electronically signed by Vince Tabares MD> Date Vince Tabares MD Cosigner Signature (If Indicated): Date CC: Birgit Poole Start: 07-07-2016 End: 07-08-2016 Gallbladder Comments: See Note; NOTES: [facility] Imaging Services [address] [place] [address] Verdana 4d Gallbladder MR#: [id number] Acct: [id number] Name: SHERMAN CORONEL Rep #: [id number] : 1965 M 50 From: Kiran Barraza MD PCP: Birgit Mcclelland DO Status: REG ER Study: Gallbladder Date of Exam: 07/07/16 Exam# [id number] Ordering Dr: Vince Tabares MD STUDY: ABDOMINAL ULTRASOUND - RIGHT UPPER QUADRANT REASON FOR VISIT: Male, 50 years old. Cholelithiasis. TECHNIQUE: Ultrasound evaluation of the right upper quadrant was performed with real-time and static santizo-scale imaging. TECHNICAL QUALITY: Limited. Examination limited due to a combination of factors including obesity and bowel gas. COMPARISON: Abdominal ultrasound and CTA chest 02/12/2016. FINDINGS: Liver: The liver measures 17.6 cm. There is increased echogenicity consistent with fatty infiltration. The bile ducts are within normal limits. There is hepatic color flow. The direction of portal flow is hepatopetal. There is no demonstrated mass lesion. Gallbladder: Normal distended gallbladder. The gallbladder wall measures 2.5 mm. There is a negative sonographic Randall's sign. There is no pericholecystic fluid. There are multiple gallstones, ranging up to 2 cm as well as sludge in the gallbladder. Common Bile Duct (C.B.D.): The common bile duct was not visualized. Pancreas: Normal size of the visualized pancreas. The tail of the pancreas is largely obscured and the body of the pancreas is partially obscured. There is normal echogenicity of the pancreas. There is no demonstrated pancreatic mass or cyst. Right Kidney: Normal size of the right kidney. The right kidney measures 12.6 x 6.5 x 5.3 cm. Normal renal cortex. The right cortex measures 1.2 cm. There is no demonstrated renal mass or cyst. There is no right hydronephrosis. US/Gallbladder IMPRESSION: Multiple gallstones as well as sludge in an otherwise normal-appearing gallbladder. Common bile duct was not visualized. No demonstrated intrahepatic bile duct dilatation. Fatty liver. Electronically Signed: Kiran Barraza MD at 1:09 EST , Service support [phone], CC: Birgit Mcclelland DO; Vince Tabares MD Manager Planning: Signed Birgit Mcclelland Start: 03-07-2016 End: 03-07-2016 Follow Up Appt Other Zeyad Cee MD Start: 03-02-2016 End: 03-02-2016 Echocardiogram Complete Comments: See Note; NOTES: [facility] Cardiovascular Services [address] [place] [address] Echo Complete W/ Contrast 03/02/16 0957 MR#: [id number] Acct: [id number] Name: SHERMAN CORONEL Rep #: [id number] : 1965 50 From: Zeyad Cee MD Attending Dr: Jaye MORRISON,Zeyad Status: REG CLI Ordering Dr: Zeyad Cee MD Date: 03/02/16 Location: [facility] Sex: M C Admitted: Reason For Study: CHEST PAIN Procedure This was a 2D Doppler, Color Flow transthoracic echocardiogram. Poor acoustic apical window. Exam performed in department. Left Ventricle Normal LV size. Left ventricular systolic function is normal. The estimated ejection fraction is 55 %. No regional wall motion abnormalities noted. Right Ventricle Normal RV size. Normal systolic function. Atria Normal left atrium. Normal right atrium. Mitral Valve Normal mitral valve. Tricuspid Valve Normal tricuspid valve. Aortic Valve The aortic valve is not well visualized. Pulmonic Valve Normal pulmonic valve. Great Vessels Normal aortic root. The pulmonary artery is normal size. Normal inferior vena cava. Pericardium/Pleural No pericardial effusion. Medication 22 gauge I.V. with prn adaptor inserted into right arm. Performed a rapid injection of agitated mix of 9 cc saline and 1cc air to assess for atrial septal defect. Definity0.4ml given slow IV push to enhance endocardial definition. MMode/2D Measurements AND Calculations LVIDd: 4.9 cm IVSd: 0.97 cm Ao root diam: 3.0 cm LVIDs: 3.1 cm LVPWd: 1.1 cm LA dimension: 3.5 cm RVDd: 3.2 cm FS: 36.9 % LAV(MOD-bp): 30.7 ml EDV(MOD-sp4): 149.1 ml EDV(MOD-sp2): 117.9 ml LAV(MOD-bp) Indexed: 12.7 ml/m2 ESV(MOD-sp4): 62.0 ml EF(MOD-sp2): 50.8 % LAV(MOD-sp2): 28.5 ml EF(MOD-sp4): 58.4 % LAV(MOD-sp4): 31.1 ml SV(MOD-sp4): 87.1 ml SV(MOD-sp2): 59.9 ml LA A4 area: 13.0 cm2 RA A4 area: 13.0 cm2 Doppler Measurements AND Calculations MV E max estevan: 77.0 cm/sec Lat Peak E' Estevan: 11.9 cm/sec Ao V2 max: 114.5 cm/sec MV A max estevan: 79.4 cm/sec E/E' lat: 6.5 Ao max P.3 mmHg MV E/A: 0.97 LV V1 max: 102.8 cm/sec MR max estevan: 7.7 cm/sec PA V2 max: 116.1 cm/sec LV V1 max P.2 mmHg MR max P.02 mmHg Interpretation Summary Normal LV size. Left ventricular systolic function is normal. The estimated ejection fraction is 55 %. Contrast injection was performed. Ordering Physician: Zeyad Cee Referring Physician: Birgit Mcclelland M.D. Performed By: Lizz Sanchez RDCS 03/02/16 1143 Date Zeyad Cee MD CC: Birgitcatrachita Mcclelland DO Date Dictated: 03/02/16 0957 Date Transcribed: 03/02/16 1143 Manager Planning: Signed Birgit Mcclelland Start: 02-15-2016 End: 03-02-2016 Echocardiography Zeyad Cee MD Start: 02-12-2016 End: 02-12-2016 Chest 1 View (Portable) Comments: See Note; NOTES: [facility] Imaging Services [address] [place] [address]807 Verdana 4d Chest 1 View (Portable) MR#: [id number] Acct: [id number] Name: SHERMAN CORONEL Rep #: [id number] : 1965 M 50 From: Kiran Barraza MD PCP: Birgit Mcclelland DO Status: REG ER Study: Chest 1 View (Portable) Date of Exam: 02/12/16 Exam# [id number] Ordering Dr: Virgil Valle MD STUDY: X-RAY CHEST REASON FOR EXAM: Male, 50 years old. Chest pain. TECHNIQUE: Single AP portable view of the chest. COMPARISON: None. FINDINGS: There is mild right basilar atelectasis. There are no demonstrated pulmonary infiltrates. There is no demonstrated pleural abnormality. Normal size heart. Normal mediastinum and jennifer. Normal visualized pulmonary arteries. Normal visualized aortic arch and descending thoracic aorta. Normal visualized thoracic spine. Normal visualized ribs, clavicles, and shoulders. There is no demonstrated abnormality of the visualized soft tissue structures of the upper abdomen. IMPRESSION: No evidence for acute cardiopulmonary pathology. Electronically Signed: Kiran Barraza MD at 6:44 EDT , Service support [phone], RAD/Chest 1 View (Portable) IMPRESSION: No evidence for acute cardiopulmonary pathology. Electronically Signed: Kiran Barraza MD at 6:44 EDT , Service support [phone], CC: Birgit Mcclelland DO; Virgil Valle MD Manager Planning: Signed Birgit Mcclelland Start: 09-29-2014 End: 09-29-2014 Ankle min 3 Views Comments: See Note; NOTES: [facility] Imaging Services [address] [place] [address] Radiology Report MR#: [id number] Acct: [id number] Name: SHERMAN CORONEL Rep #: [id number] : 1965 M 48 From: Darrin Jauregui MD PCP: Birgit Mcclelland DO Status: REG CLI Study: Ankle min 3 Views Date of Exam: 09/29/14 Exam# [id number] Ordering Dr: Trini Tena STUDY: X-RAY - LEFT ANKLE REASON FOR EXAM: Male, 48 years old. Woke up with pain in the joint 3 days ago, no known injury. TECHNIQUE: 3 view(s) of the ankle. COMPARISON: None. FINDINGS: Normal visualized distal tibia and fibula. Bimalleolar soft tissue swelling, more laterally than medially. Normal tibiotalar articulation and ankle mortise. Small calcaneal spur. The visualized subtalar, talonavicular, calcaneocuboid and tarsal articulations are normal. The soft tissue structures are unremarkable. IMPRESSION: Bimalleolar soft tissue swelling. No acute fracture or subluxation. Electronically Signed: Darrin Jauregui MD at 17:12 EST , Service support [phone], CC: Trini Tena; Birgit Mcclelland DO Manager Planning: Signed Trini Tena Work Phone: Start: 07-08-2013 PSA screening Birgit Mcclelland Plan of Treatment Date Care Activity Detail Author Start: 05-22-2023 Basic metabolic panel calcium total METABOLIC PANEL, BASIC (52140) [facility]; [facility] Work Phone: Start: 05-22-2023 Assay of thyroid stimulating hormone tsh TSH (23730) [facility]; [facility] Work Phone: Start: 05-22-2023 Hemoglobin glycosylated a1c HGB A1C (15157) [facility]; [facility] Work Phone: Start: 05-22-2023 Procedure Education Eprescribed prescriptions (G8553) [facility]; [facility] Work Phone: Start: 05-22-2023 Provider Instructions for Treatment Reviewed Lab [facility]; [facility] Work Phone: Start: 04-20-2022 Procedure Education Eprescribed prescriptions (G8553) [facility]; [facility] Work Phone: Start: 04-20-2022 Provider Instructions for Treatment [facility]; [facility] Work Phone: Start: 02-26-2022 Lipid panel LIPID PANEL (63133) [facility]; [facility] Work Phone: Start: 02-26-2022 Assay of thyroid stimulating hormone tsh TSH (87312) [facility]; [facility] Work Phone: Start: 02-26-2022 Thromboplastin time partial plasma/whole blood PTT (Activated Partial Thromboplastin Time) (78004) [facility]; [facility] Work Phone: Start: 02-26-2022 Prothrombin time PT (Prothrobim Time) (79623) [facility]; [facility] Work Phone: Start: 02-26-2022 Comprehensive metabolic panel METABOLIC PANEL, COMPREHENSIVE (78807) [facility]; [facility] Work Phone: Start: 02-26-2022 Blood count complete auto&auto difrntl wbc CBC W/AUTO DIFF WBC (12397) [facility]; [facility] Work Phone: Start: 02-26-2022 Procedure Education Eprescribed prescriptions (G8553) [facility]; [facility] Work Phone: Start: 02-26-2022 Provider Instructions for Treatment [facility]; [facility] Work Phone: Start: 03-17-2021 Procedure Education Eprescribed prescriptions (G8553) [facility]; [facility] Work Phone: Start: 04-18-2020 Assay of phosphorus inorganic PHOSPHORUS (73360) [facility]; [facility] Work Phone: Start: 04-18-2020 Phosphate [Mass/Vol] PHOSPHORUS (09218) [facility] Work Phone: Start: 04-18-2020 Procedure Education Eprescribed prescriptions (G8553) [facility] Work Phone: Start: 04-18-2020 Provider Instructions for Treatment Reviewed Lab [facility] Work Phone: Start: 04-11-2020 HbA1c (Bld) [Mass fraction] HGB A1C (61881) [facility] Work Phone: Start: 04-11-2020 Hemoglobin glycosylated a1c HGB A1C (32288) [facility]; [facility] Work Phone: Start: 04-11-2020 Assay of blood/uric acid URIC ACID BLOOD (19600) [facility] Work Phone: Start: 04-11-2020 Lipid panel LIPID PANEL (31042) [facility] Work Phone: Start: 04-11-2020 Assay of thyroid stimulating hormone tsh TSH (THYROID STIMULATING HORMONE) (46713) [facility]; [facility] Work Phone: Start: 04-11-2020 TSH Qn TSH (THYROID STIMULATING HORMONE) (31686) [facility] Work Phone: Start: 04-11-2020 Assay of triiodothyronine t3 free T3, FREE (TRIDOTHYRONINE) (52111) [facility]; [facility] Work Phone: Start: 04-11-2020 Free T3 [Mass/Vol] T3, FREE (TRIDOTHYRONINE) (17847) [facility] Work Phone: Start: 04-11-2020 Assay of free thyroxine T4, FREE (THYROXINE) (30986) [facility]; [facility] Work Phone: Start: 04-11-2020 Free T4 [Mass/Vol] T4, FREE (THYROXINE) (42975) [facility] Work Phone: Start: 09-09-2019 Assay of triiodothyronine t3 free T3, FREE (TRIDOTHYRONINE) (86714) [facility]; [facility] Work Phone: Start: 09-09-2019 Free T3 [Mass/Vol] T3, FREE (TRIDOTHYRONINE) (06859) [facility] Work Phone: Start: 09-09-2019 Assay of free thyroxine T4, FREE (THYROXINE) (16598) [facility]; [facility] Work Phone: Start: 09-09-2019 Free T4 [Mass/Vol] T4, FREE (THYROXINE) (91791) [facility] Work Phone: Start: 09-09-2019 Assay of thyroid stimulating hormone tsh TSH (THYROID STIMULATING HORMONE) (57961) [facility]; [facility] Work Phone: Start: 09-09-2019 TSH Qn TSH (THYROID STIMULATING HORMONE) (67421) [facility] Work Phone: Start: 09-09-2019 Procedure Education Eprescribed prescriptions (G8553) [facility] Work Phone: Start: 09-09-2019 Provider Instructions for Treatment [facility] Work Phone: Start: 09-09-2019 Lipid panel LIPID PANEL (18959) [facility] Work Phone: Payers Date Payer Category Payer Policy ID Unknown Social History Date Type Detail Facility Caffeine Use [facility] Work Phone: Instructions Note Date & Type Note Facility [facility]; [facility] Work Phone: Instructions Note Date & Type Note Facility [facility]; [facility] Work Phone: Instructions Note Date & Type Note Facility [facility]; [facility] Work Phone: Instructions Note Date & Type Note Facility [facility]; [facility] Work Phone: Instructions Note Date & Type Note Facility [facility]; [facility] Work Phone: Instructions Note Date & Type Note Facility [facility]; [facility] Work Phone: Instructions Note Date & Type Note Facility [facility]; [facility] Work Phone: Instructions Note Date & Type Note Facility [facility]; [facility] Work Phone: Instructions Note Date & Type Note Facility [facility]; [facility] Work Phone: Instructions Note Date & Type Note Facility [facility]; [facility] Work Phone: Summary Purpose Family History Unknown Family Member Name Dates Details Colon Cancer Comments:Paternal Grandmothe r Status:Active Diabetes Mellitus Comments:Father Status:Active Unknown Family Member Name Dates Details Colon Cancer Comments:Paternal Grandmothe r Status:Active Diabetes Mellitus Comments:Father Status:Active Unknown Family Member Name Dates Details Colon Cancer Comments:Paternal Grandmothe r Status:Active Diabetes Mellitus Comments:Father Status:Active Unknown Family Member Name Dates Details Colon Cancer Comments:Paternal Grandmothe r Status:Active Diabetes Mellitus Comments:Father Status:Active Unknown Family Member Name Dates Details Colon Cancer Comments:Paternal Grandmothe r Status:Active Diabetes Mellitus Comments:Father Status:Active Unknown Family Member Name Dates Details Colon Cancer Comments:Paternal Grandmothe r Status:Active Diabetes Mellitus Comments:Father Status:Active Unknown Family Member Name Dates Details Colon Cancer Comments:Paternal Grandmothe r Status:Active Diabetes Mellitus Comments:Father Status:Active Unknown Family Member Name Dates Details Colon Cancer Comments:Paternal Grandmothe r Status:Active Diabetes Mellitus Comments:Father Status:Active Unknown Family Member Name Dates Details Colon Cancer Comments:Paternal Grandmothe r Status:Active Diabetes Mellitus Comments:Father Status:Active Unknown Family Member Name Dates Details Colon Cancer Comments:Paternal Grandmothe r Status:Active Diabetes Mellitus Comments:Father Status:Active Unknown Family Member Name Dates Details Colon Cancer Comments:Paternal Grandmothe r Status:Active Diabetes Mellitus Comments:Father Status:Active Unknown Family Member Name Dates Details Colon Cancer Comments:Paternal Grandmothe r Status:Active Diabetes Mellitus Comments:Father Status:Active Unknown Family Member Name Dates Details Colon Cancer Comments:Paternal Grandmothe r Status:Active Diabetes Mellitus Comments:Father Status:Active Unknown Family Member Name Dates Details Colon Cancer Comments:Paternal Grandmothe r Status:Active Diabetes Mellitus Comments:Father Status:Active Unknown Family Member Name Dates Details Colon Cancer Comments:Paternal Grandmothe r Status:Active Diabetes Mellitus Comments:Father Status:Active Unknown Family Member Name Dates Details Colon Cancer Comments:Paternal Grandmothe r Status:Active Diabetes Mellitus Comments:Father Status:Active Unknown Family Member Name Dates Details Colon Cancer Comments:Paternal Grandmothe r Status:Active Diabetes Mellitus Comments:Father Status:Active Unknown Family Member Name Dates Details Colon Cancer Comments:Paternal Grandmothe r Status:Active Diabetes Mellitus Comments:Father Status:Active Unknown Family Member Name Dates Details Colon Cancer Comments:Paternal Grandmothe r Status:Active Diabetes Mellitus Comments:Father Status:Active Unknown Family Member Name Dates Details Colon Cancer Comments:Paternal Grandmothe r Status:Active Diabetes Mellitus Comments:Father Status:Active Advance Directives No Advanced Directives Records Found Instructions Name Dates Details utilization 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 : How to acce ss health information online 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 utilization 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 : How to acce ss health information online - Detail 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 utilization 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 : Patient Ins tructions 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 Current nonsmoker : How to a ccess health information online Indication:Current nonsmoker Current nonsmoker : How to a ccess health information online - Detail Indication:Current nonsmoker Current nonsmoker : Patient Instructions Indication:Current nonsmoker Loss of appetite : Patient I nstructions Indication:Loss of appetite BMI 39.0-39.9,adult : How to access health information online Indication:BMI 39.0-39.9,adult BMI 39.0-39.9,adult : How to access health information online - Detail Indication:BMI 39.0-39.9,adult BMI 39.0-39.9,adult : Patien t Instructions Indication:BMI 39.0-39.9,adult Tobacco abuse : Patient Inst ructions Indication:Tobacco abuse BMI 37.0-37.9, adult : How t o access health information online Indication:BMI 37.0-37.9, adult BMI 37.0-37.9, adult : How t o access health information online - Detail Indication:BMI 37.0-37.9, adult BMI 37.0-37.9, adult : Patie nt Instructions Indication:BMI 37.0-37.9, adult Ankle pain, left : Patient I nstructions Indication:Ankle pain, left Ankle pain, left : How to ac cess health information online Indication:Ankle pain, left Ankle pain, left : How to ac cess health information online - Detail Indication:Ankle pain, left Name Dates Details utilization 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 : How to acce ss health information online 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 utilization 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 : How to acce ss health information online - Detail 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 utilization 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 : Patient Ins tructions 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 Current nonsmoker : How to a ccess health information online Indication:Current nonsmoker Current nonsmoker : How to a ccess health information online - Detail Indication:Current nonsmoker Current nonsmoker : Patient Instructions Indication:Current nonsmoker Loss of appetite : Patient I nstructions Indication:Loss of appetite BMI 39.0-39.9,adult : How to access health information online Indication:BMI 39.0-39.9,adult BMI 39.0-39.9,adult : How to access health information online - Detail Indication:BMI 39.0-39.9,adult BMI 39.0-39.9,adult : Patien t Instructions Indication:BMI 39.0-39.9,adult Tobacco abuse : Patient Inst ructions Indication:Tobacco abuse BMI 37.0-37.9, adult : How t o access health information online Indication:BMI 37.0-37.9, adult BMI 37.0-37.9, adult : How t o access health information online - Detail Indication:BMI 37.0-37.9, adult BMI 37.0-37.9, adult : Patie nt Instructions Indication:BMI 37.0-37.9, adult Ankle pain, left : Patient I nstructions Indication:Ankle pain, left Ankle pain, left : How to ac cess health information online Indication:Ankle pain, left Ankle pain, left : How to ac cess health information online - Detail Indication:Ankle pain, left Name Dates Details utilization 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 : How to acce ss health information online 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 utilization 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 : How to acce ss health information online - Detail 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 utilization 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 : Patient Ins tructions 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 Current nonsmoker : How to a ccess health information online Indication:Current nonsmoker Current nonsmoker : How to a ccess health information online - Detail Indication:Current nonsmoker Current nonsmoker : Patient Instructions Indication:Current nonsmoker Loss of appetite : Patient I nstructions Indication:Loss of appetite BMI 39.0-39.9,adult : How to access health information online Indication:BMI 39.0-39.9,adult BMI 39.0-39.9,adult : How to access health information online - Detail Indication:BMI 39.0-39.9,adult BMI 39.0-39.9,adult : Patien t Instructions Indication:BMI 39.0-39.9,adult Tobacco abuse : Patient Inst ructions Indication:Tobacco abuse BMI 37.0-37.9, adult : How t o access health information online Indication:BMI 37.0-37.9, adult BMI 37.0-37.9, adult : How t o access health information online - Detail Indication:BMI 37.0-37.9, adult BMI 37.0-37.9, adult : Patie nt Instructions Indication:BMI 37.0-37.9, adult Ankle pain, left : Patient I nstructions Indication:Ankle pain, left Ankle pain, left : How to ac cess health information online Indication:Ankle pain, left Ankle pain, left : How to ac cess health information online - Detail Indication:Ankle pain, left Name Dates Details How to access health informa tion online 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 Start:01-Apr-2019 Instruction Type:Patient Education How to access health informa tion online - Detail 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 Start:01-Apr-2019 Instruction Type:Patient Education Patient Instructions 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 Start:01-Apr-2019 Instruction Type:Provider Instructions for Treatment How to access health informa tion online 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 Start:12-Mar-2018 Instruction Type:Patient Education How to access health informa tion online - Detail 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 Start:12-Mar-2018 Instruction Type:Patient Education Patient Instructions 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 Start:12-Mar-2018 Instruction Type:Provider Instructions for Treatment How to access health informa tion online Indication:Current nonsmoker Start:26-Feb-2018 Instruction Type:Patient Education How to access health informa tion online - Detail Indication:Current nonsmoker Start:26-Feb-2018 Instruction Type:Patient Education Patient Instructions Indication:Current nonsmoker Start:26-Feb-2018 Instruction Type:Provider Instructions for Treatment How to access health informa tion online Indication:Current nonsmoker Start:03-Feb-2018 Instruction Type:Patient Education How to access health informa tion online - Detail Indication:Current nonsmoker Start:03-Feb-2018 Instruction Type:Patient Education Patient Instructions Indication:Loss of appetite Start:03-Feb-2018 Instruction Type:Provider Instructions for Treatment How to access health informa tion online Indication:BMI 39.0-39.9,adult Start:22-Mar-2017 Instruction Type:Patient Education How to access health informa tion online - Detail Indication:BMI 39.0-39.9,adult Start:22-Mar-2017 Instruction Type:Patient Education Patient Instructions Indication:BMI 39.0-39.9,adult Start:22-Mar-2017 Instruction Type:Provider Instructions for Treatment How to access health informa tion online Indication:BMI 39.0-39.9,adult Start:08-Mar-2017 Instruction Type:Patient Education How to access health informa tion online - Detail Indication:BMI 39.0-39.9,adult Start:08-Mar-2017 Instruction Type:Patient Education Patient Instructions Indication:BMI 39.0-39.9,adult Start:08-Mar-2017 Instruction Type:Provider Instructions for Treatment Patient Instructions Indication:Tobacco abuse Start:02-Nov-2016 Instruction Type:Provider Instructions for Treatment How to access health informa tion online Indication:BMI 37.0-37.9, adult Start:31-Oct-2016 Instruction Type:Patient Education How to access health informa tion online - Detail Indication:BMI 37.0-37.9, adult Start:31-Oct-2016 Instruction Type:Patient Education Patient Instructions Indication:BMI 37.0-37.9, adult Start:31-Oct-2016 Instruction Type:Provider Instructions for Treatment Patient Instructions Indication:Ankle pain, left Start:29-Sep-2014 Instruction Type:Provider Instructions for Treatment How to access health informa tion online Indication:Ankle pain, left Start:29-Sep-2014 Instruction Type:Patient Education How to access health informa tion online - Detail Indication:Ankle pain, left Start:29-Sep-2014 Instruction Type:Patient Education Name Dates Details How to access health informa tion online 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 Start:01-Apr-2019 Instruction Type:Patient Education How to access health informa tion online - Detail 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 Start:01-Apr-2019 Instruction Type:Patient Education Patient Instructions 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 Start:01-Apr-2019 Instruction Type:Provider Instructions for Treatment How to access health informa tion online 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 Start:12-Mar-2018 Instruction Type:Patient Education How to access health informa tion online - Detail 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 Start:12-Mar-2018 Instruction Type:Patient Education Patient Instructions 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 Start:12-Mar-2018 Instruction Type:Provider Instructions for Treatment How to access health informa tion online Indication:Current nonsmoker Start:26-Feb-2018 Instruction Type:Patient Education How to access health informa tion online - Detail Indication:Current nonsmoker Start:26-Feb-2018 Instruction Type:Patient Education Patient Instructions Indication:Current nonsmoker Start:26-Feb-2018 Instruction Type:Provider Instructions for Treatment How to access health informa tion online Indication:Current nonsmoker Start:03-Feb-2018 Instruction Type:Patient Education How to access health informa tion online - Detail Indication:Current nonsmoker Start:03-Feb-2018 Instruction Type:Patient Education Patient Instructions Indication:Loss of appetite Start:03-Feb-2018 Instruction Type:Provider Instructions for Treatment How to access health informa tion online Indication:BMI 39.0-39.9,adult Start:22-Mar-2017 Instruction Type:Patient Education How to access health informa tion online - Detail Indication:BMI 39.0-39.9,adult Start:22-Mar-2017 Instruction Type:Patient Education Patient Instructions Indication:BMI 39.0-39.9,adult Start:22-Mar-2017 Instruction Type:Provider Instructions for Treatment How to access health informa tion online Indication:BMI 39.0-39.9,adult Start:08-Mar-2017 Instruction Type:Patient Education How to access health informa tion online - Detail Indication:BMI 39.0-39.9,adult Start:08-Mar-2017 Instruction Type:Patient Education Patient Instructions Indication:BMI 39.0-39.9,adult Start:08-Mar-2017 Instruction Type:Provider Instructions for Treatment Patient Instructions Indication:Tobacco abuse Start:02-Nov-2016 Instruction Type:Provider Instructions for Treatment How to access health informa tion online Indication:BMI 37.0-37.9, adult Start:31-Oct-2016 Instruction Type:Patient Education How to access health informa tion online - Detail Indication:BMI 37.0-37.9, adult Start:31-Oct-2016 Instruction Type:Patient Education Patient Instructions Indication:BMI 37.0-37.9, adult Start:31-Oct-2016 Instruction Type:Provider Instructions for Treatment Patient Instructions Indication:Ankle pain, left Start:29-Sep-2014 Instruction Type:Provider Instructions for Treatment How to access health informa tion online Indication:Ankle pain, left Start:29-Sep-2014 Instruction Type:Patient Education How to access health informa tion online - Detail Indication:Ankle pain, left Start:29-Sep-2014 Instruction Type:Patient Education Name Dates Details How to access health informa tion online 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 Start:09-Sep-2019 Instruction Type:Patient Education How to access health informa tion online - Detail 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 Start:09-Sep-2019 Instruction Type:Patient Education Patient Instructions 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 Start:09-Sep-2019 Instruction Type:Provider Instructions for Treatment How to access health informa tion online 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 Start:01-Apr-2019 Instruction Type:Patient Education How to access health informa tion online - Detail 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 Start:01-Apr-2019 Instruction Type:Patient Education Patient Instructions 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 Start:01-Apr-2019 Instruction Type:Provider Instructions for Treatment How to access health informa tion online 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 Start:12-Mar-2018 Instruction Type:Patient Education How to access health informa tion online - Detail 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 Start:12-Mar-2018 Instruction Type:Patient Education Patient Instructions 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 Start:12-Mar-2018 Instruction Type:Provider Instructions for Treatment How to access health informa tion online Indication:Current nonsmoker Start:26-Feb-2018 Instruction Type:Patient Education How to access health informa tion online - Detail Indication:Current nonsmoker Start:26-Feb-2018 Instruction Type:Patient Education Patient Instructions Indication:Current nonsmoker Start:26-Feb-2018 Instruction Type:Provider Instructions for Treatment How to access health informa tion online Indication:Current nonsmoker Start:03-Feb-2018 Instruction Type:Patient Education How to access health informa tion online - Detail Indication:Current nonsmoker Start:03-Feb-2018 Instruction Type:Patient Education Patient Instructions Indication:Loss of appetite Start:03-Feb-2018 Instruction Type:Provider Instructions for Treatment How to access health informa tion online Indication:BMI 39.0-39.9,adult Start:22-Mar-2017 Instruction Type:Patient Education How to access health informa tion online - Detail Indication:BMI 39.0-39.9,adult Start:22-Mar-2017 Instruction Type:Patient Education Patient Instructions Indication:BMI 39.0-39.9,adult Start:22-Mar-2017 Instruction Type:Provider Instructions for Treatment How to access health informa tion online Indication:BMI 39.0-39.9,adult Start:08-Mar-2017 Instruction Type:Patient Education How to access health informa tion online - Detail Indication:BMI 39.0-39.9,adult Start:08-Mar-2017 Instruction Type:Patient Education Patient Instructions Indication:BMI 39.0-39.9,adult Start:08-Mar-2017 Instruction Type:Provider Instructions for Treatment Patient Instructions Indication:Tobacco abuse Start:02-Nov-2016 Instruction Type:Provider Instructions for Treatment How to access health informa tion online Indication:BMI 37.0-37.9, adult Start:31-Oct-2016 Instruction Type:Patient Education How to access health informa tion online - Detail Indication:BMI 37.0-37.9, adult Start:31-Oct-2016 Instruction Type:Patient Education Patient Instructions Indication:BMI 37.0-37.9, adult Start:31-Oct-2016 Instruction Type:Provider Instructions for Treatment Patient Instructions Indication:Ankle pain, left Start:29-Sep-2014 Instruction Type:Provider Instructions for Treatment How to access health informa tion online Indication:Ankle pain, left Start:29-Sep-2014 Instruction Type:Patient Education How to access health informa tion online - Detail Indication:Ankle pain, left Start:29-Sep-2014 Instruction Type:Patient Education Name Dates Details How to access health informa tion online 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 Start:18-Apr-2020 Instruction Type:Patient Education How to access health informa tion online - Detail 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 Start:18-Apr-2020 Instruction Type:Patient Education Patient Instructions 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 Start:18-Apr-2020 Instruction Type:Provider Instructions for Treatment How to access health informa tion online 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 Start:09-Sep-2019 Instruction Type:Patient Education How to access health informa tion online - Detail 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 Start:09-Sep-2019 Instruction Type:Patient Education Patient Instructions 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 Start:09-Sep-2019 Instruction Type:Provider Instructions for Treatment How to access health informa tion online 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 Start:01-Apr-2019 Instruction Type:Patient Education How to access health informa tion online - Detail 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 Start:01-Apr-2019 Instruction Type:Patient Education Patient Instructions 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 Start:01-Apr-2019 Instruction Type:Provider Instructions for Treatment How to access health informa tion online 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 Start:12-Mar-2018 Instruction Type:Patient Education How to access health informa tion online - Detail 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 Start:12-Mar-2018 Instruction Type:Patient Education Patient Instructions 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 Start:12-Mar-2018 Instruction Type:Provider Instructions for Treatment How to access health informa tion online Indication:Current nonsmoker Start:26-Feb-2018 Instruction Type:Patient Education How to access health informa tion online - Detail Indication:Current nonsmoker Start:26-Feb-2018 Instruction Type:Patient Education Patient Instructions Indication:Current nonsmoker Start:26-Feb-2018 Instruction Type:Provider Instructions for Treatment How to access health informa tion online Indication:Current nonsmoker Start:03-Feb-2018 Instruction Type:Patient Education How to access health informa tion online - Detail Indication:Current nonsmoker Start:03-Feb-2018 Instruction Type:Patient Education Patient Instructions Indication:Loss of appetite Start:03-Feb-2018 Instruction Type:Provider Instructions for Treatment How to access health informa tion online Indication:BMI 39.0-39.9,adult Start:22-Mar-2017 Instruction Type:Patient Education How to access health informa tion online - Detail Indication:BMI 39.0-39.9,adult Start:22-Mar-2017 Instruction Type:Patient Education Patient Instructions Indication:BMI 39.0-39.9,adult Start:22-Mar-2017 Instruction Type:Provider Instructions for Treatment How to access health informa tion online Indication:BMI 39.0-39.9,adult Start:08-Mar-2017 Instruction Type:Patient Education How to access health informa tion online - Detail Indication:BMI 39.0-39.9,adult Start:08-Mar-2017 Instruction Type:Patient Education Patient Instructions Indication:BMI 39.0-39.9,adult Start:08-Mar-2017 Instruction Type:Provider Instructions for Treatment Patient Instructions Indication:Tobacco abuse Start:02-Nov-2016 Instruction Type:Provider Instructions for Treatment How to access health informa tion online Indication:BMI 37.0-37.9, adult Start:31-Oct-2016 Instruction Type:Patient Education How to access health informa tion online - Detail Indication:BMI 37.0-37.9, adult Start:31-Oct-2016 Instruction Type:Patient Education Patient Instructions Indication:BMI 37.0-37.9, adult Start:31-Oct-2016 Instruction Type:Provider Instructions for Treatment Patient Instructions Indication:Ankle pain, left Start:29-Sep-2014 Instruction Type:Provider Instructions for Treatment How to access health informa tion online Indication:Ankle pain, left Start:29-Sep-2014 Instruction Type:Patient Education How to access health informa tion online - Detail Indication:Ankle pain, left Start:29-Sep-2014 Instruction Type:Patient Education Name Dates Details How to access health informa tion online 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 Start:18-Apr-2020 Instruction Type:Patient Education How to access health informa tion online - Detail 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 Start:18-Apr-2020 Instruction Type:Patient Education Patient Instructions 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 Start:18-Apr-2020 Instruction Type:Provider Instructions for Treatment How to access health informa tion online 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 Start:09-Sep-2019 Instruction Type:Patient Education How to access health informa tion online - Detail 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 Start:09-Sep-2019 Instruction Type:Patient Education Patient Instructions 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 Start:09-Sep-2019 Instruction Type:Provider Instructions for Treatment How to access health informa tion online 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 Start:01-Apr-2019 Instruction Type:Patient Education How to access health informa tion online - Detail 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 Start:01-Apr-2019 Instruction Type:Patient Education Patient Instructions 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 Start:01-Apr-2019 Instruction Type:Provider Instructions for Treatment How to access health informa tion online 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 Start:12-Mar-2018 Instruction Type:Patient Education How to access health informa tion online - Detail 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 Start:12-Mar-2018 Instruction Type:Patient Education Patient Instructions 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 Start:12-Mar-2018 Instruction Type:Provider Instructions for Treatment How to access health informa tion online Indication:Current nonsmoker Start:26-Feb-2018 Instruction Type:Patient Education How to access health informa tion online - Detail Indication:Current nonsmoker Start:26-Feb-2018 Instruction Type:Patient Education Patient Instructions Indication:Current nonsmoker Start:26-Feb-2018 Instruction Type:Provider Instructions for Treatment How to access health informa tion online Indication:Current nonsmoker Start:03-Feb-2018 Instruction Type:Patient Education How to access health informa tion online - Detail Indication:Current nonsmoker Start:03-Feb-2018 Instruction Type:Patient Education Patient Instructions Indication:Loss of appetite Start:03-Feb-2018 Instruction Type:Provider Instructions for Treatment How to access health informa tion online Indication:BMI 39.0-39.9,adult Start:22-Mar-2017 Instruction Type:Patient Education How to access health informa tion online - Detail Indication:BMI 39.0-39.9,adult Start:22-Mar-2017 Instruction Type:Patient Education Patient Instructions Indication:BMI 39.0-39.9,adult Start:22-Mar-2017 Instruction Type:Provider Instructions for Treatment How to access health informa tion online Indication:BMI 39.0-39.9,adult Start:08-Mar-2017 Instruction Type:Patient Education How to access health informa tion online - Detail Indication:BMI 39.0-39.9,adult Start:08-Mar-2017 Instruction Type:Patient Education Patient Instructions Indication:BMI 39.0-39.9,adult Start:08-Mar-2017 Instruction Type:Provider Instructions for Treatment Patient Instructions Indication:Tobacco abuse Start:02-Nov-2016 Instruction Type:Provider Instructions for Treatment How to access health informa tion online Indication:BMI 37.0-37.9, adult Start:31-Oct-2016 Instruction Type:Patient Education How to access health informa tion online - Detail Indication:BMI 37.0-37.9, adult Start:31-Oct-2016 Instruction Type:Patient Education Patient Instructions Indication:BMI 37.0-37.9, adult Start:31-Oct-2016 Instruction Type:Provider Instructions for Treatment Patient Instructions Indication:Ankle pain, left Start:29-Sep-2014 Instruction Type:Provider Instructions for Treatment How to access health informa tion online Indication:Ankle pain, left Start:29-Sep-2014 Instruction Type:Patient Education How to access health informa tion online - Detail Indication:Ankle pain, left Start:29-Sep-2014 Instruction Type:Patient Education Name Dates Details How to access health informa tion online 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 Start:18-Apr-2020 Instruction Type:Patient Education How to access health informa tion online - Detail 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 Start:18-Apr-2020 Instruction Type:Patient Education Patient Instructions 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 Start:18-Apr-2020 Instruction Type:Provider Instructions for Treatment How to access health informa tion online 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 Start:09-Sep-2019 Instruction Type:Patient Education How to access health informa tion online - Detail 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 Start:09-Sep-2019 Instruction Type:Patient Education Patient Instructions 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 Start:09-Sep-2019 Instruction Type:Provider Instructions for Treatment How to access health informa tion online 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 Start:01-Apr-2019 Instruction Type:Patient Education How to access health informa tion online - Detail 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 Start:01-Apr-2019 Instruction Type:Patient Education Patient Instructions 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 Start:01-Apr-2019 Instruction Type:Provider Instructions for Treatment How to access health informa tion online 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 Start:12-Mar-2018 Instruction Type:Patient Education How to access health informa tion online - Detail 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 Start:12-Mar-2018 Instruction Type:Patient Education Patient Instructions 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 Start:12-Mar-2018 Instruction Type:Provider Instructions for Treatment How to access health informa tion online Indication:Current nonsmoker Start:26-Feb-2018 Instruction Type:Patient Education How to access health informa tion online - Detail Indication:Current nonsmoker Start:26-Feb-2018 Instruction Type:Patient Education Patient Instructions Indication:Current nonsmoker Start:26-Feb-2018 Instruction Type:Provider Instructions for Treatment How to access health informa tion online Indication:Current nonsmoker Start:03-Feb-2018 Instruction Type:Patient Education How to access health informa tion online - Detail Indication:Current nonsmoker Start:03-Feb-2018 Instruction Type:Patient Education Patient Instructions Indication:Loss of appetite Start:03-Feb-2018 Instruction Type:Provider Instructions for Treatment How to access health informa tion online Indication:BMI 39.0-39.9,adult Start:22-Mar-2017 Instruction Type:Patient Education How to access health informa tion online - Detail Indication:BMI 39.0-39.9,adult Start:22-Mar-2017 Instruction Type:Patient Education Patient Instructions Indication:BMI 39.0-39.9,adult Start:22-Mar-2017 Instruction Type:Provider Instructions for Treatment How to access health informa tion online Indication:BMI 39.0-39.9,adult Start:08-Mar-2017 Instruction Type:Patient Education How to access health informa tion online - Detail Indication:BMI 39.0-39.9,adult Start:08-Mar-2017 Instruction Type:Patient Education Patient Instructions Indication:BMI 39.0-39.9,adult Start:08-Mar-2017 Instruction Type:Provider Instructions for Treatment Patient Instructions Indication:Tobacco abuse Start:02-Nov-2016 Instruction Type:Provider Instructions for Treatment How to access health informa tion online Indication:BMI 37.0-37.9, adult Start:31-Oct-2016 Instruction Type:Patient Education How to access health informa tion online - Detail Indication:BMI 37.0-37.9, adult Start:31-Oct-2016 Instruction Type:Patient Education Patient Instructions Indication:BMI 37.0-37.9, adult Start:31-Oct-2016 Instruction Type:Provider Instructions for Treatment Patient Instructions Indication:Ankle pain, left Start:29-Sep-2014 Instruction Type:Provider Instructions for Treatment How to access health informa tion online Indication:Ankle pain, left Start:29-Sep-2014 Instruction Type:Patient Education How to access health informa tion online - Detail Indication:Ankle pain, left Start:29-Sep-2014 Instruction Type:Patient Education Name Dates Details How to access health informa tion online 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 Start:09-Sep-2019 Instruction Type:Patient Education How to access health informa tion online - Detail 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 Start:09-Sep-2019 Instruction Type:Patient Education Patient Instructions 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 Start:09-Sep-2019 Instruction Type:Provider Instructions for Treatment How to access health informa tion online 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 Start:01-Apr-2019 Instruction Type:Patient Education How to access health informa tion online - Detail 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 Start:01-Apr-2019 Instruction Type:Patient Education Patient Instructions 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 Start:01-Apr-2019 Instruction Type:Provider Instructions for Treatment How to access health informa tion online 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 Start:12-Mar-2018 Instruction Type:Patient Education How to access health informa tion online - Detail 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 Start:12-Mar-2018 Instruction Type:Patient Education Patient Instructions 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 Start:12-Mar-2018 Instruction Type:Provider Instructions for Treatment How to access health informa tion online Indication:Current nonsmoker Start:26-Feb-2018 Instruction Type:Patient Education How to access health informa tion online - Detail Indication:Current nonsmoker Start:26-Feb-2018 Instruction Type:Patient Education Patient Instructions Indication:Current nonsmoker Start:26-Feb-2018 Instruction Type:Provider Instructions for Treatment How to access health informa tion online Indication:Current nonsmoker Start:03-Feb-2018 Instruction Type:Patient Education How to access health informa tion online - Detail Indication:Current nonsmoker Start:03-Feb-2018 Instruction Type:Patient Education Patient Instructions Indication:Loss of appetite Start:03-Feb-2018 Instruction Type:Provider Instructions for Treatment How to access health informa tion online Indication:BMI 39.0-39.9,adult Start:22-Mar-2017 Instruction Type:Patient Education How to access health informa tion online - Detail Indication:BMI 39.0-39.9,adult Start:22-Mar-2017 Instruction Type:Patient Education Patient Instructions Indication:BMI 39.0-39.9,adult Start:22-Mar-2017 Instruction Type:Provider Instructions for Treatment How to access health informa tion online Indication:BMI 39.0-39.9,adult Start:08-Mar-2017 Instruction Type:Patient Education How to access health informa tion online - Detail Indication:BMI 39.0-39.9,adult Start:08-Mar-2017 Instruction Type:Patient Education Patient Instructions Indication:BMI 39.0-39.9,adult Start:08-Mar-2017 Instruction Type:Provider Instructions for Treatment Patient Instructions Indication:Tobacco abuse Start:02-Nov-2016 Instruction Type:Provider Instructions for Treatment How to access health informa tion online Indication:BMI 37.0-37.9, adult Start:31-Oct-2016 Instruction Type:Patient Education How to access health informa tion online - Detail Indication:BMI 37.0-37.9, adult Start:31-Oct-2016 Instruction Type:Patient Education Patient Instructions Indication:BMI 37.0-37.9, adult Start:31-Oct-2016 Instruction Type:Provider Instructions for Treatment Patient Instructions Indication:Ankle pain, left Start:29-Sep-2014 Instruction Type:Provider Instructions for Treatment How to access health informa tion online Indication:Ankle pain, left Start:29-Sep-2014 Instruction Type:Patient Education How to access health informa tion online - Detail Indication:Ankle pain, left Start:29-Sep-2014 Instruction Type:Patient Education Additional Source Comments (unrecognized sect ion and content) No Status Records Found INFORMATION SOURCE (unrecogn ized section and content) FOR RECORDS PERTAINING TO PATIENTS WHO ARE OR HAVE BEEN ENROLLED IN A CHEMICAL DEPENDENCY/SUBSTANCEABUSE PROGRAM, SOME INFORMATION MAY BE OMITTED. This clinical summary was aggregated from multiple sources. Caution should be exercised in using it in the provision of clinical care. This summary normalizes information from multiple sources, and as a consequence, information in this document may materially change the coding, format and clinical context of patient data. In addition, data may be omitted in some cases. CLINICAL DECISIONS SHOULD BE BASED ON THE PRIMARY CLINICAL RECORDS. [facility]. provides no warranty or guarantee of the accuracy or completeness of information in this document.
[2023-08-16 14:57] LABS: Thyroid Stim Hormone (TSH) 4.15 uIU/mL (0.358-3.74)
== END | disposition home or self-care (01) ==
PROVIDERS: PCP Internal Medicine; Referring Provider Internal Medicine; Visit Provider Internal Medicine
DX: E03.9 Hypothyroidism, unspecified (principal)
CPT/HCPCS: 36415; 84443

== ENCOUNTER → 2023-08-23 | Outpatient (CLI) | payer OTHER, SELFPAY ==
--- NOTE | 2023-08-23 10:50 | RAD_ITS ---
STUDY: X-RAY - RIGHT SHOULDER REASON FOR EXAM: Male, 57 years old. Pain in right shoulder. TECHNIQUE: 5 views of the right shoulder. COMPARISON: None. FINDINGS: Normal glenohumeral articulation. 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 Normal acromion. Normal humeral head and visualized proximal humerus. The soft tissue structures are unremarkable. There is no demonstrated fracture. Normal visualized pulmonary apex. RAD/Shoulder min 2 Views IMPRESSION: Minimal acromioclavicular arthrosis. Electronically Signed: Joel Valentine MD at 11:05 EST ,
== END | disposition home or self-care (01) ==
LOC: RAD 10:46
PROVIDERS: PCP Internal Medicine; Referring Provider Physician Assistant Surgical; Visit Provider Physician Assistant Surgical
DX: M25.511 Pain in right shoulder (principal)
CPT/HCPCS: 73030

== ENCOUNTER 2023-09-25 13:00 | Outpatient (RCR) | payer OTHER, SELFPAY ==
--- NOTE | 2023-09-04 14:01 | HP.PTEVAL ---
Patient's Visit Information Visit Information Visit Information: ANTONINO PRASAD is a 57 year old M referred to Physical Therapy by Evan Fragoso PA-C with a diagnosis of PAIN IN RIGHT SHOULDER ,IMPINGEMENT SYNDROME OF RIGHT SHOULDER. Date of Evaluation: 09/04/23 Physical Therapist: Ehsan Sanderson, PT, Cert MDT, OCS Visit Plan Frequency: 2-3x /Week Duration: 4-6 Weeks Plan: PT INTERVENTIONS RTC/SCAPULAR STRENGTENING ,ROM G-H JOINT AND MANUAL THERAPY ,POSTURAL EX'S AND MODALTIES PRN Subjective Subjective: This 57 y/o male presents to physical therapy with right shoulder pain. Patient has had right shoulder pain ~ 3 months insidious onset shoulder pain . Pain located global shoulder . Described as a sharp pain. Patient seen DR x-rays and no medication. Aggravating factors raising OH activities above 90 degrees, reaching lifting and reaching behind back. Patient no problem at rest and below 90 degrees . Patient unable to sleep on stomach thus affects pain. Does have some numbness in finger index. Patient pain affects job with lifting patient sliding in bed. Patient condition affects QOL and function. Patient goals to decrease pain. 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 Right Shoulder: Pain Intensity (Out of 10): 6 Pain Intensity Range: 9 Objective Objective: POSTURE: mild forward posture PALPATION: unremarkable NEURO: denies paresthesia/tingling AROM: shoulder flexion 130 degrees ,abduction 140 degrees pain ,ER 90 degrees ,IR unable PROM: flexion/abduction 150 degrees SCAPULAR HUMERAL FUNCTION : 1:1 ratio G-H joint: mild tightness MMT: ( peak force) deltoid 13.3 ,infraspinatus 13 .3,supraspinatus 10.2 Special Tests R Shoulder External Rotation Lag Test - RC Tear: Negative R Shoulder Supine Impingement Test - RC Tear: Negative R Shoulder Drop Sign - IS Test: Negative R Shoulder Neer - Impingement: Positive R Shoulder Shaw Rickie - Impingement: Positive R Shoulder Biceps Load Test - Labrum: Negative R Shoulder O'Briens - SLAP/A-C: Negative R Shoulder Shrug Sign - OA/Adhesive Capsulitis: Negative Balance/Special Test Scores Quick DASH Score: 40.9075 Goals Goal 1:: I with HEP for shoulder Goal Time Frame: 4-6 Weeks Goal 2:: Patient to demonstrate 50% improvement with less pain and improved function Goal Time Frame: 4-6 Weeks Goal 3:: Patient to improve shoulder AROM flexion /abduction 150 degrees for reaching in cubboard and IR L5 to put on coat Goal Time Frame: 4-6 Weeks Goal 4:: Patient improve quick dash by 5 points to improve QOL and function Goal Time Frame: 4-6 Weeks Rehabilitation Potential Physical Therapy Diagnosis: Patient has possible tendinopathy RTC > 3 months with pain ,decrease strength and pain with OH activities thus benefit from skilled PT Rehabilitation Potential: Good Anticipated Interventions Patient/Client Instruction: Educate patient on: Condition and Plan of Care For the Purpose of:: To decrease pain, To increase ROM, To improve muscle performance and motor function, To improve ability to perform ADL's, To increase tolerance to activity/condition/position, To improve ability of physical actions for home/community/work/leisure, To improve health of tissue, To decrease soft tissue restriction, To increase flexibility/ROM and To prevent re-injury Therapeutic Exercise to Include: Strength training, Postural training, Flexibilty training, Passive ROM, Active ROM and Scapular Strength/Stabilization Comment: RTC For the Purpose of:: To decrease pain, To increase ROM, To improve muscle performance and motor function, To improve ability to perform ADL's, To increase tolerance to activity/condition/position, To improve performance and independence with ADL's, To improve ability of physical actions for home/community/work/leisure, To improve health of tissue, To decrease soft tissue restriction, To increase flexibility/ROM and To prevent re-injury Manual Therapy Techniques to Include: Mobilization and Passive ROM Comment: G-H For the Purpose of:: To decrease pain, To increase ROM, To improve muscle performance and motor function, To increase tolerance to activity/condition/position, To improve ability of physical actions for home/community/work/leisure, To improve health of tissue, To decrease soft tissue restriction and To increase flexibility/ROM Text: Thank you for the opportunity to evaluate your patient. For Medicare and Medicare HMO plans, please review the plan of care and approve it. It will need to be FAXED BACK to us at [phone] for Medicare purposes. For Medicare only, by signing this I certify the plan of care. Please let me know if there are questions or concerns regarding this plan of care. Physician Signature: Date:
--- NOTE | 2023-11-29 16:23 | HP.PT.NRP ---
Patient Information Patient Information: ANTONINO PRASAD was seen in my office for initial evaluation on 09/04/23. The following Plan of Care was established for this patient: POC Established Initial Frequency: 2-3x /Week Initial Duration: 4-6 Weeks Anticipated Interventions Patient/Client Instruction: Educate patient on: Condition and Plan of Care For the Purpose of:: To decrease pain, To increase ROM, To improve muscle performance and motor function, To improve ability to perform ADL's, To increase tolerance to activity/condition/position, To improve ability of physical actions for home/community/work/leisure, To improve health of tissue, To decrease soft tissue restriction, To increase flexibility/ROM and To prevent re-injury Therapeutic Exercise to Include: Strength training, Postural training, Flexibilty training, Passive ROM, Active ROM and Scapular Strength/Stabilization For the Purpose of:: To decrease pain, To increase ROM, To improve muscle performance and motor function, To improve ability to perform ADL's, To increase tolerance to activity/condition/position, To improve performance and independence with ADL's, To improve ability of physical actions for home/community/work/leisure, To improve health of tissue, To decrease soft tissue restriction, To increase flexibility/ROM and To prevent re-injury Manual Therapy Techniques to Include: Mobilization and Passive ROM Comment: G-H For the Purpose of:: To decrease pain, To increase ROM, To improve muscle performance and motor function, To increase tolerance to activity/condition/position, To improve ability of physical actions for home/community/work/leisure, To improve health of tissue, To decrease soft tissue restriction and To increase flexibility/ROM Last Seen Last Seen: This patient was last seen in our office . Pertinent comments regarding their Physical therapy will appear below: Patient has been seen for PT for right shoulder pain impingement for PT for ROM and strengthening thus is d/c after 5 visist, At this point I will be discontinuing this patient from physical therapy. I would be happy to see this patient again in the future if found appropriate by the physician. Thank you! Ehsan Sanderson, PT, Cert MDT, OCS Balance/Gait/Functional tests Balance/Special Test Scores Quick DASH Score: 40.9075
== END 2023-09-25 19:00 | disposition home or self-care (01) ==
LOC: PT 13:00
PROVIDERS: PCP Internal Medicine; Referring Provider Physician Assistant Surgical; Visit Provider Physician Assistant Surgical
DX: M25.511 Pain in right shoulder (principal); M75.41 Impingement syndrome of right shoulder
CPT/HCPCS: 97110; 97140; 97162

== ENCOUNTER → 2024-07-13 | Outpatient (CLI) | payer OTHER, SELFPAY ==
[2024-07-13 09:38] LABS: Phosphorus 2.6 mg/dL (2.5-4.9); Uric Acid 9.6 mg/dL (3.5-7.2)
[2024-07-13 11:27] LABS: Hemoglobin A1c 5.7 % (3.8-5.6)
== END | disposition home or self-care (01) ==
PROVIDERS: PCP Internal Medicine; Referring Provider Internal Medicine; Visit Provider Internal Medicine
DX: E03.9 Hypothyroidism, unspecified (principal); R73.9 Hyperglycemia, unspecified; E79.0 Hyperuricemia without signs of inflammatory arthritis and tophaceous disease; E83.39 Other disorders of phosphorus metabolism
CPT/HCPCS: 36415; 83036; 84100; 84443; 84550

== ENCOUNTER → 2024-11-02 | Outpatient (CLI) | payer OTHER, SELFPAY | END | disposition home or self-care (01) | LOC: LAB 11:06 | PROVIDERS: PCP Internal Medicine; Referring Provider Internal Medicine; Visit Provider Internal Medicine | DX: E78.5 Hyperlipidemia, unspecified (principal); R73.09 Other abnormal glucose; E03.9 Hypothyroidism, unspecified | CPT/HCPCS: 36415; 83036 ==

== ENCOUNTER → 2025-03-31 | Outpatient (CLI) | payer OTHER, SELFPAY ==
[2025-03-31 12:15] LABS: Hematocrit 42.0 % (40-54); Hemoglobin 14.7 g/dL (13.0-16.5); Immature Granulocytes Count 0.020 X10^3/uL (0.0-0.0); Mean Corp Hgb Conc 35.0 g/dL (32-36); Mean Corpuscular Volume 84.3 fL (80-94); Mean Platelet Vol. 10.2 fl (6.2-12.0); NRBC Flagged by Analyzer 0 % (0-5); Platelet Count 190 K/mm3 (150-450); RBC Distribution Width CV 13.7 % (11.6-14.6); RBC Distribution Width SD 41.9 fl (35.1-43.9); Red Blood Count 4.98 M/mm3 (4.6-6.2); White Blood Count 5.7 K/mm3 (4.4-11.0)
== END | disposition home or self-care (01) ==
LOC: LAB 11:28
PROVIDERS: PCP Internal Medicine; Referring Provider Internal Medicine; Visit Provider Internal Medicine
DX: E78.5 Hyperlipidemia, unspecified (principal); R73.09 Other abnormal glucose; E03.9 Hypothyroidism, unspecified
CPT/HCPCS: 36415; 83036; 84443; 85025

== ENCOUNTER → 2025-06-05 | Outpatient (CLI) | payer OTHER, SELFPAY ==
--- OUTSIDE RECORDS SUMMARY | 2025-06-05 08:53 | XMS RPT_ITS | CCD ---
Author Organization [facility] Care Team Providers Care Strategic Planning Manager Name Role Phone STACY Aceves RN, Kelin Starr Unavailable Unavailabl genaro Aceves RN RN, Kelin Starr Unavailable Unavailabl e Lyle Copeland Unavailable Unavailable Hussain, Elise Unavailable Unavailable Hussain, Elise Unavailable Unavailable Stas, Birgit Unavailable Dino Alvarenga Unavailable Laci Dykes Unavailable Hussain Cesilia, Elise Unavailable Dick Moulton Unavailable Fabiana Momin Unavailable Unavailable Mckenzie Curran Unavailable Unavailable Manchak, Yue Unavailable Unavailable Morales Perea Unavailable Unavailable Unavailable Unavailable Stas, Birgit Unavailable Dino Alvarenga Unavailable Laci Dykes Unavailable Hussain Cesilia, Elise Unavailable Dick Moulton Unavailable Torres Tejeda Unavailable Fabiana Momin Unavailable Unavailable Mckenzie Curran L Unavailable Unavailable Pasquale, willam Unavailable Unavailable Manchak, Yue Unavailable Unavailable Morales Perea Unavailable Unavailable Unavailable Unavailable Hussain [place], Elise Unavailable [phone] Gravius, Yissel Unavailable Unavailable Manchak, Yue Unavailable Unavailable Messenger, Fabiana Unavailable Unavailable Slarb, Eboni Unavailable Unavailable Gravius, Yissel Unavailable Unavailable Morales Perea Unavailable Unavailable Unavailable Unavailable Morales Schaefer Unavailable Unavailable Stas DO, Birgit Unavailable Dino Alvarenga Unavailable Laci Dykes Unavailable Elise Wilcox Unavailable SaigeDick Unavailable Torres Tejeda MD Unavailable Gravius STEAM PRESS TENDER, Yissel Unavailable Unavailable Merrill KUMAR, Fabiana Unavailable Unavailable Erin STEAM PRESS TENDER, Yue Unavailable Unavailable Silvano FOREPART ROUNDER, Morales Unavailable Unavailable Unavailable Unavailable Unavailable Unavailable Birgit Mcclelland DO Unavailable Dr. Birgit Mcclelland Primary Care Provider Dr. Chadd Barron Attending Provider [phone] Dr. Nikolas Maher Referring Provider [phone] [facility] Unavailable Unavailable Stas CALDERON, Dr. Genao Primary Care Provider Stas CALDERON, Dr. Genao Attending Provider [phone] Stas CALDERON, Dr. Genao Referring Provider Stas CALDERON, Dr. Genao Primary Care Provider Stas CALDERON, Dr. Genao Attending Provider [phone] Stas CALDERON, Dr. Genao Referring Provider Assessment, Health Risk Attending Provider Unava ilable Assessment, Health Risk Referring Provider Unava ilable Birgit Mcclelland Referring Unavailable Birgit Mcclelland Primary Care Unavailable Birgit Mcclelland Attending Unavailable StasBirgit batista Primary Care Unavailable Assessment, Health Risk Attending Unavaila ble Assessment, Health Risk Referring Unavaila ble Assessment, Health Risk Attending Unavaila ble Assessment, Health Risk Referring Unavaila ble Birgit Mcclelland Primary Care Unavailable StasBirgit batista Primary Care Unavailable StasBirgit Attending Unavailable StasBirgit Referring Unavailable Stas, Birgit Primary Care Unavailable StasBirgit Attending Unavailable StasBirgit batista Referring Unavailable Allergies Allergy Classification Reported Allergen(s) Allergy Type Date of Onset Reaction(s) Facility NEGATED: Highlighted row has been ruled out! (1 source) allergy to substance [facility] Work Phone: NEGATED: Highlighted row has been ruled out! (1 source) drug allergy 7 [facility] Work Phone: Medications Current Medications Medication Drug Class(es) Dates Sig (Normalized) Sig (Original) cholecalciferol 0.125 mg oral tablet (8 sources) Vitamin D Start: 03-07-2022 take 1 tablet by mouth once daily Cholecalciferol (Vitamin D3) (Vitamin D3) 125 mcg (5,000 unit) Tablet Active 125 ug PO DAILY March 07, 2022 12:00am febuxostat 40 mg oral tablet (20 sources) Xanthine Oxidase Inhibitor Start: 05-29-2023 take 1 tablet by mouth once daily Uloric 40 mg oral tablet 1 (one) Tablet daily for 0 days Quantity: 90 {Tablet} Refills: 0 Ordered: 29-May-2023 Birgit Mcclelland DO, DO, Kathleen Start : 29-May-2023 Active Start: 02-12-2016 take 1 tablet by leland th once daily Febuxostat (Uloric) 40 MG tablet Active 40 mg PO DAILY February 12, 2016 12:00am GOUT levothyroxine sodium 0.025 mg oral tablet (20 sources) l-Thyroxine Start: 03-25-2021 take 1 tablet by mouth once daily Levothyroxine (Synthroid) 25 mcg Tablet Active 25 ug PO DAILY March 25, 2021 12:00am Start: 01-25-2021 take 1 tablet by leland th once daily Synthroid 25 MCG Oral Tablet 1 (one) Tablet qd for 30 days Quantity: 30 {Tablet} Refills: 3 Ordered: 25-Jan-2021 Birgit Mcclelland DO, DO, Kathleen Start : 25-Jan-2021 Active Start: 04-13-2020 End: 09-09-2019 take 1 tablet by mouth once daily Synthroid 25 MCG Oral Tablet 1 (one) Tablet qd for 0 days Quantity: 30 {Tablet} Refills: 6 Ordered: 13-Apr-2020 Birgit Mcclelland DO, DO, Kathleen Start : 13-Apr-2020 End : 09-Sep-2019 Active Start: 04-13-2020 End: 09-09-2019 take 1 tablet by mouth once daily Synthroid 25 MCG Oral Tablet 1 (one) Tablet qd for 0 days Quantity: 30 {Tablet} Refills: 6 Ordered: 13-Apr-2020 Stas DOBirgit DOBirgit Start : 13-Apr-2020 End : 09-Sep-2019 Active Start: 04-13-2020 End: 09-09-2019 take 1 tablet by mouth once daily Synthroid 25 MCG Oral Tablet 1 (one) Tablet qd for 0 days Quantity: 30 {Tablet} Refills: 6 Ordered: 13-Apr-2020 Stas DOBirgit DONomiBirgit Start : 13-Apr-2020 End : 09-Sep-2019 Active Start: 04-13-2020 End: 09-09-2019 take 1 tablet by mouth once daily Synthroid 25 MCG Oral Tablet 1 (one) Tablet qd for 0 days Quantity: 30 {Tablet} Refills: 6 Ordered: 13-Apr-2020 Stas DOBirgit DONomiBirgit Start : 13-Apr-2020 End : 09-Sep-2019 Active Start: 04-13-2020 End: 09-09-2019 take 1 tablet by mouth once daily Synthroid 25 MCG Oral Tablet 1 (one) Tablet qd for 0 days Quantity: 30 {Tablet} Refills: 6 Ordered: 13-Apr-2020 Stas DOBirgit DO, Kathleen Start : 13-Apr-2020 End : 09-Sep-2019 Active Start: 04-13-2020 End: 09-09-2019 take 1 tablet by mouth once daily Synthroid 25 MCG Oral Tablet 1 (one) Tablet qd for 0 days Quantity: 30 {Tablet} Refills: 6 Ordered: 13-Apr-2020 Stas DOBirgit DOBirgit Start : 13-Apr-2020 End : 09-Sep-2019 Active Start: 04-13-2020 End: 09-09-2019 take 1 tablet by mouth once daily Synthroid 25 MCG Oral Tablet 1 (one) Tablet qd for 0 days Quantity: 30 {Tablet} Refills: 6 Ordered: 13-Apr-2020 Stas DOBirgit DOKathBirgit Start : 13-Apr-2020 End : 09-Sep-2019 Active Start: 04-01-2019 End: 09-09-2019 take 1 tablet by mouth once daily Synthroid 25 MCG Oral Tablet 1 (one) Tablet qd for 0 days Quantity: 30 {Tablet} Refills: 6 Ordered: 09-Sep-2019 Yissel Milan CMA Start : 01-Apr-2019 End : 09-Sep-2019 Inactive Multivitamin preparation (12 sources) Start: 03-25-2021 take 1 tablet by mouth once daily Multivitamin Active 1 TABLET PO DAILY March 24, 2021 11:00pm Start: 03-25-2021 take 1 tablet by leland th once daily Multivitamin Active 1 TABLET PO DAILY March 25, 2021 12:00am multivitamin Act pauline Multivitamin Tablet (2 sources) Start: 03-25-2021 Multivitamin T ablet Active 1 {tbl} PO DAILY March 25, 2021 12:00am Completed/Discontinued Medications Medication Drug Class(es) Dates Sig (Normalized) Sig (Original) [id number] 200 actuat albuterol 0.09 mg/actuat metered dose inhaler (20 sources) beta2-Adrenergic Agonist Start: 07-25-2012 End: 04-09-2013 take 2 puff(s) by inhalation three times daily PROAIR HFA, 108 (90 Base)MCG/ACT (Inhalation Aerosol Solution) 2 (two) Puff(s) tid for 0 days Quantity: 1 {Aerosol_Soln} Refills: 0 Ordered: 09-Apr-2013 Fabiana Momin RN Start : 25-Jul-2012 End : 09-Apr-2013 Inactive Start: 07-25-2012 End: 04-09-2013 take 2 puff(s) by inhalation three times daily PROAIR HFA, 108 (90 Base)MCG/ACT (Inhalation Aerosol Solution) 2 (two) Puff(s) tid for 0 days Quantity: 1 {Aerosol_Soln} Refills: 0 Ordered: 09-Apr-2013 Fabiana Momin RN Start : 25-Jul-2012 End : 09-Apr-2013 Inactive azithromycin 250 mg oral tablet (20 sources) Macrolide Antimicrobial Start: 07-25-2012 End: 04-09-2013 ZITHROMAX Z-ORION, 250MG (Oral Tablet) 1 Tablet TAD for 0 days Quantity: 1 {Package(s)} Refills: 0 Ordered: 09-Apr-2013 Fabiana Momin RN Start : 25-Jul-2012 End : 09-Apr-2013 Inactive codeine phosphate 2 mg/ml / guaiFENesin 20 mg/ml oral solution (20 sources) Opioid Agonist Start: 07-25-2012 End: 04-09-2013 CHERATUSSIN AC, 100-10MG/5ML (Oral Syrup) 1 Teaspoon(s) tid prn for 0 days Quantity: 6 {Ounce(s)} Refills: 0 Ordered: 09-Apr-2013 Fabiana Momin RN Start : 25-Jul-2012 End : 09-Apr-2013 Inactive colchicine 0.6 mg oral tablet (20 sources) Start: 10-29-2014 End: 03-04-2015 COLCRYS, 0.6MG (Oral Tablet) 1 (one) Tablet take 2 now then 1 in one hour for 0 days Quantity: 3 {Tablet} Refills: 0 Ordered: 04-Mar-2015 Eboni Jansen LPN Start : 29-Oct-2014 End : 04-Mar-2015 Discontinued econazole nitrate 10 mg/ml topical cream (20 sources) Azole Antifungal Start: 12-17-2008 End: 04-26-2011 SPECTAZOLE, 1% (External Cream) apply to affected area Cream Twice daily for 0 days Quantity: 45 {Cream} Refills: 0 Ordered: 17-Dec-2008 Mast Elizabeth KUMAR Start : 17-Dec-2008 End : 26-Apr-2011 Discontinued ergocalciferol 1.25 mg oral capsule (20 sources) Provitamin D2 Compound Start: 03-04-2015 End: 04-10-2016 take 1 capsule by mouth two times weekly Ergocalciferol 62821 UNIT Oral Capsule 1 (one) Capsule twice weekly for 0 days Quantity: 24 {QS} Refills: 0 Ordered: 10-Apr-2016 Eboni Jansen LPN Start : 04-Mar-2015 End : 10-Apr-2016 Discontinued fenofibric acid 135 mg delayed release oral capsule (20 sources) Peroxisome Proliferator Receptor alpha Agonist Start: 12-10-2022 Trilipix 135 mg oral capsule,delayed release (enteric coated) [address] qd for 90 days Quantity: 90 {Capsule} Refills: 2 Ordered: 10-Dec-2022 Birgit Mcclelland DO, DO, Kathleen Start : 10-Dec-2022 Active Start: 08-09-2021 Trilipix 135 M G Oral Capsule Delayed Release [address] qd for 0 days Quantity: 90 {Capsule} Refills: 4 Ordered: 09-Aug-2021 Kath Mcclelland DOhlkeiko Mcclelland DO Birgit Start : 09-Aug-2021 Active Start: 03-03-2020 Trilipix 135 M G Oral Capsule Delayed Release [address] qd for 0 days Quantity: 30 {Capsule} Refills: 4 Ordered: 03-Mar-2020 Stas CALDERON Birgitkeiko Mcclelland DO Birgit Start : 03-Mar-2020 Active Start: 07-08-2018 Trilipix 135 M G Oral Capsule Delayed Release [address] qd for 0 days Quantity: 30 {Capsule} Refills: 4 Ordered: 08-Jul-2018 Stas CALDERON Birgit Mcclelland DO Birgit Start : 08-Jul-2018 Active Start: 02-12-2016 take 1 capsule by [facility] once daily Fenofibric Acid (Choline) (Trilipix) 135 MG capsule,delayed release(DR/EC) Active 135 mg PO DAILY February 12, 2016 12:00am CHOLESTEROL fluconazole 100 mg oral tablet (20 sources) Azole Antifungal Start: 12-17-2008 End: 04-26-2011 take 1 tablet by mouth once daily DIFLUCAN, 100MG (Oral Tablet) 1 (one) Tablet qd for 0 days Quantity: 7 {Tablet} Refills: 0 Ordered: 17-Dec-2008 Mast Elizabeth KUMAR Start : 17-Dec-2008 End : 26-Apr-2011 Discontinued levoFLOXacin 500 mg oral tablet (20 sources) Quinolone Antimicrobial Start: 02-03-2018 End: 02-13-2018 LevoFLOXacin 500 MG Oral Tablet 1 (one) Tablet PO Daily x 10 days for 10 days Quantity: 10 {Tablet} Refills: 0 Ordered: 03-Feb-2018 Fabiana Salinas Start : 03-Feb-2018 End : 13-Feb-2018 Inactive meloxicam 15 mg oral tablet (20 sources) Nonsteroidal Anti-inflammatory Drug Start: 09-29-2014 End: 10-29-2014 take 1 tablet by mouth once daily at mealtime MELOXICAM, 15MG (Oral Tablet) 1 (one) Tablet daily for 0 days Quantity: 30 {Tablet} Refills: 0 Ordered: 29-Oct-2014 Start : 29-Sep-2014 End : 29-Oct-2014 Discontinued Comments: with food Comment on above: with food methylPREDNISolone 4 mg oral tablet (20 sources) Corticosteroid Start: 10-29-2014 End: 03-04-2015 MEDROL (ORION), 4MG (Oral Tablet) 1 (one) Tablet TAD for 0 days Quantity: 1 {Package} Refills: 0 Ordered: 04-Mar-2015 Inderijt TONYEboni Start : 29-Oct-2014 End : 04-Mar-2015 Discontinued nystatin 100 unt/mg topical powder (20 sources) Polyene Antifungal Start: 12-17-2008 End: 04-26-2011 NYSTATIN, 111619YMLC/GM (External Powder) Powder Twice daily for 0 days Refills: 1 Ordered: 17-Dec-2008 Elizabeth Gunderson RN Start : 17-Dec-2008 End : 26-Apr-2011 Discontinued Comments: apply to socks and shoes dispense large container Start: 12-17-2008 End: 04-26-2011 NYSTATIN, [id number]/GM (Ext ernal Powder) Powder Twice daily for 0 days Refills: 1 Ordered: 17-Dec-2008 Elizabeth Gunderson RN Start : 17-Dec-2008 End : 26-Apr-2011 Discontinued Comments: apply to socks and shoes dispense large container Comment on above: apply to socks and s hoes dispense large container polymyxin b 06121 unt/ml / trimethoprim 1 mg/ml ophthalmic solution (3 sources) Dihydrofolate Reductase Inhibitor Antibacterial, Polymyxin-class Antibacterial Start: 09-05-19 17 End: 09-12-19 17 take 1 drop(s) into the eye(s) every four hours POLYMYXIN B-TRIMETHOPRIM 15157-7.1 UNIT/ML-% SOLN One drop to affected eye every 4 hours POLYMYXIN B-TRIMETHOPRIM [id number] Everette ANN sertraline 100 mg oral tablet (20 sources) Serotonin Reuptake Inhibitor Start: 12-08-19 17 End: 03-22-20 17 take 1 tablet by mouth once daily Zoloft 100 MG Oral Tablet 1 (one) Tablet qd for 0 days Quantity: 30 {Tablet} Refills: 3 Ordered: 22-Mar-2017 Yue Khan CMA Start : 07-Dec-2016 End : 22-Mar-2017 Inactive tadalafil 5 mg oral tablet (20 sources) Phosphodiesterase 5 Inhibitor Start: 04-20-20 22 tadalafiL 5 mg oral tablet 1 (one) Tablet qd prn one hour prior to sexual activity for 0 days Quantity: 30 {Tablet} Refills: 0 Ordered: 20-Apr-2022 Brendon Landry LPN Start : 20-Apr-2022 Active Start: 01-18-2020 End: 02-26-2022 take 1 tablet by mouth twice daily as needed Cialis 5 MG Oral Tablet 1 (one) Tablet bid prn for 0 days Quantity: 30 {Tablet} Refills: 0 Ordered: 26-Feb-2022 Yissel Milan CMA Start : 18-Jan-2020 End : 26-Feb-2022 Inactive Comments: called verbal to [facility] 03/26 Start: 03-26-2017 End: 04-01-2019 take 1 tablet by mouth twice daily as needed Cialis 5 MG Oral Tablet 1 (one) Tablet Tablet bid prn for 0 days Quantity: 30 {Tablet} Refills: 0 Ordered: 01-Apr-2019 Yissel Milan Start : 26-Mar-2017 End : 01-Apr-2019 Inactive Comments: called verbal to [facility] 03/26 Comment on above: called verbal to [facility] 03/26 vitamin d3 (5 sources) vitamin d3 125mc g Active NEGATED: Highlighted row has not occurred!drug or medication (14 sources) No Known Histori smita Medications NEGATED: Highlighted row has not occurred!No Known Historical Medications (8 sources) No Known Histori smita Medications Problems Active Problems Problem Classification Problem Date [...] (20 sources) Hyperglycemia; Translations: [Hyperglycemia] 04-01-2019 Episodic Comment on above: Haic in set of labs pending gatorade with meds- will follow trends Disorders of lipid metabolism (20 sources) Hyperlipidemia; Translations: [Hypertriglyceridemia ] Onset: 02-15-2016 02-15-2016 Chronic Comment on above: will do with wc yematty rly- will ck psa at that time too TG uncontrolled bc o f inconsistency with meds as well pt to ntake meds mor e consitently and work on diet /exercise harder Fever of unknown origin (20 sources) Fever with chills; Translations: [Fever chills] Resolved: 11-28-2018 03-12-2018 Episodic Fluid and electrolyte disorders (20 sources) Dehydration; Translations: [Dehydration] Resolved: 02-26-2018 02-26-2018 Episodic Gout and other crystal arthropathies (20 sources) Gout; Translations: [Gout] Resolved: 11-28-2018 03-12-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 Miscellaneous mental health disorders (14 sources) Abnormal sexual function Episodic Mood disorders (20 sources) Acute depression; Translations: [Depression, acute] Resolved: 09-09-2019 04-01-2019 Chronic Mycoses (20 sources) Tinea pedis; Translations: [Tinea pedis, unspecified laterality] Resolved: 01-03-2009 07-13-2015 Episodic Nutritional deficiencies (11 sources) Decreased vitamin D; Translations: [Low vitamin D level] 04-01-2019 Episodic Other aftercare (20 sources) Patient encounter status; Translations: [Therapeutic drug monitoring] Resolved: 02-26-2022 04-18-2020 Episodic Other diseases of kidney and ureters (6 sources) Renal insufficiency; Translations: [Renal insufficiency, mild] 05-22-2023 Episodic Comment on above: from fasting and deh ydrated? will ramona with hydration Other ear and sense organ disorders (20 sources) Hearing loss; Translations: [Unspecified hearing loss, unspecified ear] 03-12-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 Other lower respiratory disease (20 sources) Cough; Translations: [Cough] Resolved: 04-09-2013 04-09-2013 Episodic Other lower respiratory disease (20 sources) Wheezing; Translations: [Wheezing] Resolved: 04-09-2013 04-09-2013 Episodic Other male genital disorders (12 sources) Male erectile dysfunction, unspecified; Translations: [Erectile dysfunction] 04-20-2022 Chronic Other non-traumatic joint disorders (20 sources) Joint pain; Translations: [Joint pain] Resolved: 11-28-2018 03-12-2018 Episodic Other non-traumatic joint disorders (20 sources) Ankle pain; Translations: [Ankle pain, left] Resolved: 11-02-2016 03-08-2017 Episodic Other nutritional; endocrine; and metabolic disorders (20 sources) Hypoalphalipoproteine glory; 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-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 Other nutritional; endocrine; and metabolic disorders (20 sources) Body mass index 30+ - obesity; Translations: [BMI 37.0-37.9, adult] Resolved: 04-18-2020 03-12-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 Other nutritional; endocrine; and metabolic disorders (20 sources) Hypophosphatemia; Translations: [Hypophosphatemia] 03-12-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 Comment on above: pt will do foods ins tead of supplement pt will do foods ins tead of supplement- he didnt do last time Other nutritional; endocrine; and metabolic disorders (20 sources) Body mass index 40+ - severely obese; Translations: [BMI 40.0-44.9, adult] 04-01-2019 Chronic Other nutritional; endocrine; and metabolic disorders (20 sources) Loss of appetite; Translations: [Loss of appetite] Resolved: 02-26-2022 03-12-2018 Episodic Comment on above: not as bad as last v isit but still somewhat Other nutritional; endocrine; and metabolic disorders (20 sources) Blood urate raised; Translations: [Elevated uric acid in blood] 09-09-2019 Episodic Comment on above: pt will be more cons istent with taking meds dialy Other skin disorders (20 sources) Eruption; Translations: [Rash] Resolved: 11-28-2018 03-12-2018 Episodic Other upper respiratory infections (9 sources) Viral upper respiratory tract infection; Translations: [Acute upper respiratory infection, unspecified] 03-25-2021 Episodic Residual codes; unclassified (20 sources) FH: Diabetes mellitus; Translations: [Family history of diabetes mellitus] 03-12-2018 Episodic Residual codes; unclassified (20 sources) 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; 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] 04-18-2020 Episodic Residual codes; unclassified (11 sources) Current non-smoker ; Translations: [Current nonsmoker] Resolved: 03-12-2018 03-12-2018 Episodic Residual codes; unclassified (20 sources) Tobacco user; Translations: [Tobacco abuse] Resolved: 02-03-2018 11-28-2018 Episodic Comment on above: chew Residual codes; unclassified (15 sources) Non-smoker; Translations: [Current nonsmoker] Resolved: 03-12-2018 03-12-2018 Episodic Thyroid disorders (20 sources) Hypothyroidism; Translations: [Adult hypothyroidism] Onset: 08-11-2024 04-11-2020 Chronic Unclassified (15 sources) Snuff user; Translations: [Tobacco user] Resolved: 02-03-2018 03-12-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 Comment on above: chew Unclassified (20 sources) Abnormal female sexual function; Translations: [Sexual dysfunction in females] Resolved: 03-12-2018 03-12-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 Unclassified (14 sources) Abnormal sexual function Chronic Unclassified (20 sources) Elevated C-reactive protein (CRP); Translations: [Other specified abnormal findings of blood chemistry] Resolved: 02-26-2022 03-12-2018 Episodic Comment on above: order to repeat pt will be more cons istent with taking meds dialy Unclassified (20 sources) Family history of diabetes mellitus; Translations: [FH: Diabetes mellitus] 03-12-2018 Episodic Unclassified (2 sources) Screening for malignant neoplasm of colon ; Translations: [Encounter for screening for malignant neoplasm of colon] Onset: 12-25-2016 12-25-2016 Unclassified (20 sources) Encounter for screening for malignant neoplasm of colon (Renamed from Special screening for malignant neoplasms, colon); Translations: [Screening status] 03-12-2018 Unclassified (20 sources) Unclassified (20 sources) Tobacco abuse Unclassified (20 sources) Stress reaction, emotional Unclassified (20 sources) BMI 37.0-37.9, adult Unclassified (20 sources) Low vitamin D level Unclassified (20 sources) Screening for prostate cancer; Translations: [Screening status] 03-12-2018 Unclassified (20 sources) rv repairer Unclassified (20 sources) BMI 38.0-38.9,adult Unclassified (20 sources) SCREENING FOR CANCER OF THE PROSTATE (V76.44) Unclassified (20 sources) Adult hypothyroidism Unclassified (8 sources) BRONCHITIS, NOT SPECIFIED ACUTE OR CHRONIC (490.) Past or Other Problems Problem Classification Problem [...] bone; Translations: [Fracture] Resolved: 01-03-2009 04-09-2013 Episodic Comment on above: collar bone 1982 Other lower respiratory disease (3 sources) Other forms of dyspnea; Translations: [Other forms of dyspnea] Onset: 02-15-2016 02-15-2016 Episodic Other screening for suspected conditions (not mental disorders or infectious disease) (11 sources) Elevated C-reactive protein; Translations: [CRP elevated] 04-01-2019 Comment on above: order to repeat Residual codes; unclassified (13 sources) Tobacco user; Translations: [Tobacco abuse] Resolved: 02-03-2018 11-28-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 Comment on above: chew Spondylosis; intervertebral disc disorders; other back problems (20 sources) Backache; Translations: [Backache] Resolved: 01-03-2009 05-25-2015 Episodic Unclassified (20 sources) BMI 39.0-39.9,adult Unclassified (20 sources) Current non-smoker ; Translations: [Current nonsmoker] Resolved: 03-12-2018 03-12-2018 Unclassified (20 sources) Patient encounter status; Translations: [Annual physical exam] Resolved: 11-28-2018 03-12-2018 Unclassified (20 sources) Rash Unclassified (20 sources) Sexual dysfunction in females Unclassified (20 sources) Nutritional counseling Unclassified (20 sources) Unspecified Diagnosis 03-12-2018 Unclassified (20 sources) Encounter for well adult exam with abnormal findings (Renamed from Encounter for general adult medical examination with abnormal findings) Unclassified (20 sources) Encounter for routine adult medical examination Unclassified (20 sources) Low HDL (under 40) Unclassified (20 sources) CRP elevated Unclassified (20 sources) Ankle pain, left Unclassified (20 sources) Adult general medical exam (V70.9) Unclassified (20 sources) Fracture nose 03-12-2018 Comment on above: 1983 Unclassified (20 sources) Thrombocytopenia Unclassified (20 sources) EXAMINATION, ROUTINE MEDICAL (V70.0) Unclassified (20 sources) Screening status; Translations: [Encounter for screening for malignant neoplasm of colon (Renamed from Special screening for malignant neoplasms, colon)] 03-12-2018 Unclassified (20 sources) Eye exam, routine Unclassified (20 sources) Annual physical exam Unclassified (20 sources) BMI 40.0-44.9, adult Unclassified (19 sources) Encounter for annual general medical examination with abnormal findings in adult Unclassified (19 sources) Elevated uric acid in blood Unclassified (18 sources) Abnormal thyroid screen (blood) Unclassified (12 sources) Encounter for well adult exam with abnormal findings Unclassified (8 sources) Therapeutic drug monitoring Unclassified (5 sources) Pre-operative clearance Unclassified (5 sources) Gout, arthritis Results Test Name Value Interpretation Reference Range Facility Absolute lymphocyte countOrd ered By: Birgit Mcclelland on 03-31-2025 Lymphocytes Auto (Unsp spec) [#/Vol] 1.81 10*3/uL 0.83-4.51 [facility] Absolute lymphocyte countOrd ered By: HEALTH ASSESSMENT on 03-31-2025 Lymphocytes Auto (Unsp spec) [#/Vol] 1.72 10*3/uL 0.83-4.[facility] [facility] Absolute neutrophil countOrd ered By: Birgit Mcclelland on 03-31-2025 Neutrophils (Bld) [#/Vol] 3.4 10*3/uL 2.0-7.7 [facility] Absolute neutrophil countOrd ered By: HEALTH ASSESSMENT on 03-31-2025 Neutrophils (Bld) [#/Vol] 3.5 10*3/uL 2.0-7.7 [facility] Absolute nucleated red blood cell countOrdered By: HEALTH ASSESSMENT on 03-31-2025 Nucleated RBC (Bld) [#/Vol] 0.00 10*3/uL 0-5 [facility] Anion gap in Serum or Plasma Ordered By: HEALTH ASSESSMENT on 03-31-2025 Anion gap [Moles/Vol] 13 mmol/L 5- [facility] Automated lymphocyte count a s percentage of total leukocytesOrdered By: Birgit Stas on 03-31-2025 Lymphocytes/100 WBC Auto (Unsp spec) 31.6 % 19- [facility] BUN/creatinine ratioOrdered By: HEALTH ASSESSMENT on 03-31-2025 Urea nitrogen/Creatinine [Mass ratio] 12.1 mg/mg 10- [facility] Basophil percentageOrdered B y: Birgit Pulidoon on 03-31-2025 Basophils/100 WBC (Bld) 0.5 % 0- [facility] Bilirubin directOrdered By: HEALTH ASSESSMENT on 03-31-2025 Bilirubin.direct [Mass/Vol] 0.23 mg/dL 0.00-0.30 [facility] Bilirubin, totalOrdered By: HEALTH ASSESSMENT on 03-31-2025 Bilirubin [Mass/Vol] 0.63 mg/dL 0.00-1.30 [facility] CBC W/Diff, Automatedon 03-19 Absolute Lymph 1.81 X10 3/uL Normal 0.83-4.51 [facility] Comment on above: Performed By: #### L 500.2900, L100.0200 #### [facility] [address] [place], [address] Absolute Neut 3.4 X10 3/uL Normal 2.0-7.7 [facility] Comment on above: Performed By: #### L 500.2900, L100.0200 #### [facility] [address] [place], [address] Basophils/100 WBC (Bld) 0.5 % Normal 0-1 [facility] Comment on above: Performed By: #### L 500.2900, L100.0200 #### [facility] [address] [place], [address] Eosinophils/100 WBC (Bld) 2.6 % Normal 0-5 [facility] Comment on above: Performed By: #### L 500.2900, L100.0200 #### [facility] [address] [place], [address] Erythrocyte distribution width (RBC) [Ratio] 13.7 % Normal 11.6-14.6 [facility] Comment on above: Performed By: #### L 500.2900, L100.0200 #### [facility] [address] [place], [address] Hematocrit (Bld) [Volume fraction] 42.0 % Normal 40-54 [facility] Comment on above: Performed By: #### L 500.2900, L100.0200 #### [facility] [address] [place], [address] Hemoglobin (Bld) [Mass/Vol] 14.7 g/dL Normal 13.0-16.5 [facility] Comment on above: Performed By: #### L 500.2900, L100.0200 #### [facility] [address] [place], [address] IG% 0.300 Normal 0.0-0.9 [facility] Comment on above: Result Comment: IG% - Immature Granulocytes (promyelocytes, myelocytes and metamyelocytes) > 1% indicates that a LEFT SHIFT is Present. Performed By: #### L 500.2900, L100.0200 #### [facility] [address] [place], [address] Lymphocytes/100 WBC (Bld) 31.6 % Normal 19-41 [facility] Comment on above: Performed By: #### L 500.2900, L100.0200 #### [facility] [address] [place], [address] MCH (RBC) [Entitic mass] 29.5 pg Normal 27.0-32.0 [facility] Comment on above: Performed By: #### L 500.2900, L100.0200 #### [facility] [address] [place], [address] MCHC (RBC) [Mass/Vol] 35.0 g/dL Normal 32-36 [facility] Comment on above: Performed By: #### L 500.2900, L100.0200 #### [facility] [address] [place], [address] MCV (RBC) [Entitic vol] 84.3 fL Normal 80-94 [facility] Comment on above: Performed By: #### L 500.2900, L100.0200 #### [facility] [address] [place], [address] Monocytes/100 WBC (Bld) 6.1 % Normal 0-10 [facility] Comment on above: Performed By: #### L 500.2900, L100.0200 #### [facility] [address] [place], [address] Neutrophils/100 WBC (Bld) 58.9 % Normal 47-70 [facility] Comment on above: Performed By: #### L 500.2900, L100.0200 #### [facility] [address] [place], [address] Platelets (Bld) [#/Vol] 190 10*3/uL Normal 150-450 [facility] Comment on above: Performed By: #### L 500.2900, L100.0200 #### [facility] [address] [place], [address] RBC (Bld) [#/Vol] 4.98 10*6/uL Normal 4.6-6.2 [facility] Comment on above: Performed By: #### L 500.2900, L100.0200 #### [facility] [address] [place], [address] RDW SD 41.9 fl Normal 35.1-43.9 [facility] Comment on above: Performed By: #### L 500.2900, L100.0200 #### [facility] [address] [place], [address] WBC (Bld) [#/Vol] 5.7 10*3/uL Normal 4.4-11.0 [facility] Comment on above: Performed By: #### L 500.2900, L100.0200 #### [facility] [address] [place], [address] CBC, Employeeon 03-31-2025 Absolute Lymph 1.72 X10 3/uL Normal 0.83-4.51 [facility] Comment on above: Performed By: #### L 500.2900, L100.0200 #### [facility] [address] [place], [address] Absolute Neut 3.5 X10 3/uL Normal 2.0-7.7 [facility] Comment on above: Performed By: #### L 500.2900, L100.0200 #### [facility] [address] [place], [address] Basophils/100 WBC (Bld) 0.7 % Normal 0-1 [facility] Comment on above: Performed By: #### L 500.2900, L100.0200 #### [facility] [address] [place], [address] Eosinophils/100 WBC (Bld) 2.8 % Normal 0-5 [facility] Comment on above: Performed By: #### L 500.2900, L100.0200 #### [facility] [address] [place], [address] Erythrocyte distribution width (RBC) [Ratio] 13.5 % Normal 11.6-14.6 [facility] Comment on above: Performed By: #### L 500.2900, L100.0200 #### [facility] [address] [place], [address] Hematocrit (Bld) [Volume fraction] 41.8 % Normal 40-54 [facility] Comment on above: Performed By: #### L 500.2900, L100.0200 #### [facility] [address] [place], [address] Hemoglobin (Bld) [Mass/Vol] 14.4 g/dL Normal 13.0-16.5 [facility] Comment on above: Performed By: #### L 500.2900, L100.0200 #### [facility] [address] [place], [address] Lymphocytes/100 WBC (Bld) 29.6 % Normal 19-41 [facility] Comment on above: Performed By: #### L 500.2900, L100.0200 #### [facility] [address] [place], [address] MCH (RBC) [Entitic mass] 29.3 pg Normal 27.0-32.0 [facility] Comment on above: Performed By: #### L 500.2900, L100.0200 #### [facility] [address] [place], [address] MCHC (RBC) [Mass/Vol] 34.4 g/dL Normal 32-36 [facility] Comment on above: Performed By: #### L 500.2900, L100.0200 #### [facility] [address] [place], [address] MCV (RBC) [Entitic vol] 85.1 fL Normal 80-94 [facility] Comment on above: Performed By: #### L 500.2900, L100.0200 #### [facility] [address] [place], [address] Monocytes/100 WBC (Bld) 6.0 % Normal 0-10 [facility] Comment on above: Performed By: #### L 500.2900, L100.0200 #### [facility] [address] [place], [address] Neutrophils/100 WBC (Bld) 60.6 % Normal 47-70 [facility] Comment on above: Performed By: #### L 500.2900, L100.0200 #### [facility] [address] [place], [address] NRBC # 0.00 10 3/uL Normal 0-5 [facility] Comment on above: Performed By: #### L 500.2900, L100.0200 #### [facility] [address] [place], [address] Nucleated RBC (Bld) [#/Vol] 0 10*3/uL Normal 0-5 [facility] Comment on above: Performed By: #### L 500.2900, L100.0200 #### [facility] [address] [place], [address] Platelet mean volume (Bld) [Entitic vol] 10.2 fL Normal 6.2-12.0 [facility] Comment on above: Performed By: #### L 500.2900, L100.0200 #### [facility] [address] [place], [address] Platelets (Bld) [#/Vol] 191 10*3/uL Normal 150-450 [facility] Comment on above: Performed By: #### L 500.2900, L100.0200 #### [facility] [address] [place], [address] RBC (Bld) [#/Vol] 4.91 10*6/uL Normal 4.6-6.2 [facility] Comment on above: Performed By: #### L 500.2900, L100.0200 #### [facility] [address] [place], [address] RDW SD 41.5 fl Normal 35.1-43.9 [facility] Comment on above: Performed By: #### L 500.2900, L100.0200 #### [facility] [address] [place], [address] WBC (Bld) [#/Vol] 5.8 10*3/uL Normal 4.4-11.0 [facility] Comment on above: Performed By: #### L 500.2900, L100.0200 #### [facility] [address] [place], [address] Calculated very low density lipoprotein (VLDL) cholesterol measurementOrdered By: HEALTH ASSESSMENT on 03-31-2025 Calculated very low density lipoprotein (VLDL) cholesterol measurement 70 mg/dL High 5-40 [facility] Carbon dioxide, total [Moles /volume] in Central venous bloodOrdered By: HEALTH ASSESSMENT on 03-31-2025 CO2 [Moles/Vol] 20.9 mmol/L Low 21.0-32.0 [facility] Chloride assayOrdered By: HE ALTH ASSESSMENT on 03-31-2025 Chloride [Moles/Vol] 108 mmol/L 98-108 [facility] Employee Profileon CHOL:HDL 5.76 Normal [facility] Comment on above: Order Comment: CASEY Lam SEND RESULTS OF BMP LIVER TO PLEASE. Performed By: #### L 500.2900, L100.0200 #### [facility] [address] [place], [address] Cholesterol [Mass/Vol] 194 mg/dL Normal <=200 [facility] Comment on above: Order Comment: CSAEY Lam SEND RESULTS OF BMP LIVER TO PLEASE. Result Comment: Chol esterol level, Desirable <200 mg/dL Borderline high cholesterol 200-239 mg/dL High cholesterol >=240 mg/dL Recommendations of the NCEP Adult Treatment Panel for the following risk-cutoff thresholds for the [place] population. Performed By: #### L 500.2900, L100.0200 #### [facility] [address] [place], [address] Cholesterol in HDL [Mass/Vol] 34 mg/dL Low [facility] Comment on above: Order Comment: ANGIEAS E SEND RESULTS OF BMP LIVER TO PLEASE. Result Comment: Carole onal Cholesterol Education Program (NCEP) guidelines: <40 mg/dL: Low HDL-cholesterol (major risk factor for CHD) >= 60 mg/dL: High HDL-cholesterol (negative risk factor for CHD) HDL-cholesterol is affected by a number of factors, e.g. smoking, exercise, hormones, sex and age. Performed By: #### L 500.2900, L100.0200 #### [facility] [address] [facility] [address] Cholesterol in LDL [Mass/Vol] 91 mg/dL Normal [facility] Comment on above: Order Comment: CASEY E SEND RESULTS OF BMP LIVER TO PLEASE. Result Comment: Bord lwimno=634-709 mg/dL Higher Nohm=466 mg/dL or greater Friedwald Equation for LDL-C Performed By: #### L 500.2900, L100.0200 #### [facility] [address] [facility] [address] Cholesterol in VLDL [Mass/Vol] 70 mg/dL High 5-40 [facility] Comment on above: Order Comment: CASEY E SEND RESULTS OF BMP LIVER TO PLEASE. Performed By: #### L 500.2900, L100.0200 #### [facility] [address] [facility] [address] LDH 211 U/L Normal 87-241 [facility] Comment on above: Order Comment: CASEY E SEND RESULTS OF BMP LIVER TO PLEASE. Performed By: #### L 500.2900, L100.0200 #### [facility] [address] [place], [address] Phosphate [Mass/Vol] 2.5 mg/dL Low 2.7-4.5 [facility] Comment on above: Order Comment: CASEY E SEND RESULTS OF BMP LIVER TO PLEASE. Performed By: #### L 500.2900, L100.0200 #### [facility] [address] [place], [address] Triglyceride [Mass/Vol] 349 mg/dL High [facility] Comment on above: Order Comment: CASEY E SEND RESULTS OF BMP LIVER TO PLEASE. Result Comment: The drugs N-Acetylcysteine and Metamizole may falsely depress this assay. Normal range: <150 mg/dL Borderline High: 150-199 mg/dL High: 200-499 mg/dL Very High: >500 mg/dL Performed By: #### L 500.2900, L100.0200 #### [facility] [address] [place], [address] URIC 7.7 mg/dL High 3.5-7.2 [facility] Comment on above: Order Comment: CASEY Lam SEND RESULTS OF BMP LIVER TO PLEASE. Result Comment: The drugs N-Acetylcysteine and Metamizole may falsely depress this assay. Performed By: #### L 500.2900, L100.0200 #### [facility] [address] [place], [address] Eosinophil percentageOrdered By: Birgit Mcclelland on 03-31-2025 Eosinophils/100 WBC (Bld) 2.6 % 0-5 [facility] Erythrocyte distribution wid th ratioOrdered By: Birgit Mcclelland on 03-31-2025 Erythrocyte distribution width (RBC) [Ratio] 13.7 % 11.6-14.6 [facility] Erythrocyte distribution wid th ratioOrdered By: HEALTH ASSESSMENT on 03-31-2025 Erythrocyte distribution width (RBC) [Ratio] 13.5 % 11.6-14.6 [facility] Erythrocyte distribution wid th standard deviationOrdered By: Birgit Mcclelland on 03-31-2025 Erythrocyte distribution width (RBC) [Ratio] 41.9 fl 35.1-43.9 [facility] Erythrocyte distribution wid th standard deviationOrdered By: HEALTH ASSESSMENT on 03-31-2025 Erythrocyte distribution width (RBC) [Ratio] 41.5 fl 35.1-43.9 [facility] Glomerular filtration rate ( GFR) estimation/1.73 sq m using serum, plasma, or whole bOrdered By: HEALTH ASSESSMENT on 03-31-2025 GFR/1.73 sq M.predicted among non-blacks MDRD (S/P/Bld) [Vol rate/Area] 78 mL/min/{1.73_m2} >60 [facility] Comment on above: mL/min/1.73m2 CKD-EP I Creatinine Equation (2020) Hematocrit Auto (Bld) [Volum e fraction]Ordered By: Birgit Mcclelland on 03-31-2025 Hematocrit (Bld) [Volume fraction] 42.0 % 40- [facility] Hematocrit Auto (Bld) [Volum e fraction]Ordered By: HEALTH ASSESSMENT on 03-31-2025 Hematocrit (Bld) [Volume fraction] 41.8 % 40-54 [facility] Hemoglobin A1con 03-31-2025 HbA1c (Bld) [Mass fraction] 5.8 % High <=5.6 [facility] Comment on above: Result Comment: Norm al < 5.7 % Prediabetic 5.7 - 6.4 % Diabetic >or= 6.5 % Please note range changes. Performed By: #### L 500.9024, L100.0200 #### [facility] [address] [place] [address]. [place], [address] Hemoglobin A1c percentageOrd ered By: Birgit Mcclelland on 03-31-2025 HbA1c (Bld) [Mass fraction] 5.8 % High <5.7 [facility] Comment on above: Normal < 5.7 % Predi abetic 5.7 - 6.4 % Diabetic >or= 6.5 % Please note range changes. Hemoglobin measurementOrdere d By: Birgit Mcclelland on 03-31-2025 Hemoglobin (Bld) [Mass/Vol] 14.7 g/dL 13.0-16.5 [facility] Hemoglobin measurementOrdere d By: HEALTH ASSESSMENT on 03-31-2025 Hemoglobin (Bld) [Mass/Vol] 14.4 g/dL 13.0-16.5 [facility] Immature granulocytes/100 WB C Auto (Bld)Ordered By: Birgit Mcclelland on 03-31-2025 Immature granulocytes/100 WBC (Bld) 0.300 % 0.0-0.9 [facility] Comment on above: IG% - Immature Granu locytes (promyelocytes, myelocytes and metamyelocytes) > 1% indicates that a LEFT SHIFT is Present. LDL calc ser/plasOrdered By: HEALTH ASSESSMENT on 03-31-2025 Cholesterol in LDL [Mass/Vol] 91 mg/dL [facility] Comment on above: Vwrpwxtuho=728-139 m g/dL & Higher Fyuw=504 mg/dL or greaterFriedwald Equation for LDL-C Laboratory - Chemistry and C hemistry - challengeOrdered By: HEALTH ASSESSMENT on 03-31-2025 AST [Catalytic activity/Vol] 59 U/L High <38 [facility] Lactate dehydrogenase (LDH) measurementOrdered By: HEALTH ASSESSMENT on 03-31-2025 LDH [Catalytic activity/Vol] 211 U/L 87-241 [facility] MCV (mean corpuscular volume ) determinationOrdered By: Birgit Mcclelland on 03-31-2025 MCV (RBC) [Entitic vol] 84.3 fL 80-94 [facility] MCV (mean corpuscular volume ) determinationOrdered By: HEALTH ASSESSMENT on 03-31-2025 MCV (RBC) [Entitic vol] 85.1 fL 80-94 [facility] Mean corpuscular hemoglobin (MCH) determinationOrdered By: Birgit Mcclelland on 03-31-2025 MCH (RBC) [Entitic mass] 29.5 pg 27.0-32.0 [facility] Mean corpuscular hemoglobin (MCH) determinationOrdered By: HEALTH ASSESSMENT on 03-31-2025 MCH (RBC) [Entitic mass] 29.3 pg 27.0-32.0 [facility] Mean corpuscular hemoglobin concentration (MCHC) determinationOrdered By: Birgit Mcclelland on 03-31-2025 MCHC (RBC) [Mass/Vol] 35.0 g/dL - [facility] Mean corpuscular hemoglobin concentration (MCHC) determinationOrdered By: HEALTH ASSESSMENT on 03-31-2025 MCHC (RBC) [Mass/Vol] 34.4 g/dL - [facility] Mean platelet volume determi nationOrdered By: Birgit Mcclelland on 03-31-2025 Platelet mean volume (Bld) [Entitic vol] 10.2 fL 6.2-12.0 [facility] Mean platelet volume determi nationOrdered By: HEALTH ASSESSMENT on 03-31-2025 Platelet mean volume (Bld) [Entitic vol] 10.2 fL 6.2-12.0 [facility] Monocyte percentageOrdered B y: Birgit Mcclelland on 03-31-2025 Monocytes/100 WBC (Bld) 6.1 % 0-10 [facility] Neutrophil percentageOrdered By: Birgit Mcclelland on 03-31-2025 Neutrophils/100 WBC (Bld) 58.9 % 47-70 [facility] Neutrophil percentageOrdered By: HEALTH ASSESSMENT on 03-31-2025 Neutrophils/100 WBC (Bld) 60.6 % 47-70 [facility] Nucleated red blood cell per centageOrdered By: Birgit Mcclelland on 03-31-2025 Nucleated RBC/100 WBC (Bld) [Ratio] 0 % 0-5 [facility] Nucleated red blood cell per centageOrdered By: HEALTH ASSESSMENT on 03-31-2025 Nucleated RBC/100 WBC (Bld) [Ratio] 0 % 0-5 [facility] Platelet countOrdered By: Heladio Mcclelland on 03-31-2025 Platelets (Bld) [#/Vol] 190 10*3/uL 150-450 [facility] Platelet countOrdered By: TRI ALTH ASSESSMENT on 03-31-2025 Platelets (Bld) [#/Vol] 191 10*3/uL 150-450 [facility] Potassium measurement (mass/ volume)Ordered By: HEALTH ASSESSMENT on 03-31-2025 Potassium (Unsp spec) [Mass/Vol] 3.5 mmol/L 3.3-5.1 [facility] RBC Auto (Bld) [#/Vol]Ordere d By: Birgit Mcclelland on 03-31-2025 RBC (Bld) [#/Vol] 4.98 10*6/uL 4.6-6.2 [facility] RBC Auto (Bld) [#/Vol]Ordere d By: HEALTH ASSESSMENT on 03-31-2025 RBC (Bld) [#/Vol] 4.91 10*6/uL 4.6-6.2 [facility] Screening total cholesterol/ high density lipoprotein (HDL) cholesterol ratioOrdered By: HEALTH ASSESSMENT on 03-31-2025 Cholesterol.total/Chol esterol in HDL [Mass ratio] 5.76 {ratio} [facility] Serum creatinine measurement (mass/volume)Ordered By: HEALTH ASSESSMENT on 03-31-2025 Creatinine [Mass/Vol] 1.09 mg/dL 0.70-1.20 [facility] Serum globulin measurementOr dered By: HEALTH ASSESSMENT on 03-31-2025 Globulin (S) [Mass/Vol] 2.9 g/dL 2.2-4.2 [facility] Serum glucose measurement (m ass/volume)Ordered By: HEALTH ASSESSMENT on 03-31-2025 Glucose [Mass/Vol] 163 mg/dL High 70-99 [facility] Serum or plasma alanine rodriguez otransferase (ALT) measurementOrdered By: HEALTH ASSESSMENT on 03-31-2025 ALT [Catalytic activity/Vol] 71 U/L High <47 [facility] Serum or plasma albumin andrés urement (mass/volume)Ordered By: HEALTH ASSESSMENT on 03-31-2025 Albumin [Mass/Vol] 4.4 g/dL 3.5-5.0 [facility] Serum or plasma albumin/glob ulin mass ratioOrdered By: HEALTH ASSESSMENT on 03-31-2025 Albumin/Globulin [Mass ratio] 1.5 {ratio} 0.9-2.4 [facility] Serum or plasma alkaline ang sphatase measurementOrdered By: HEALTH ASSESSMENT on 03-31-2025 ALP [Catalytic activity/Vol] 58 U/L 40-129 [facility] Serum or plasma calcium andrés urement (mass/volume)Ordered By: HEALTH ASSESSMENT on 03-31-2025 Calcium [Mass/Vol] 9.6 mg/dL 7.6-11.0 [facility] Serum or plasma cholesterol in HDL measurement (mass/volume)Ordered By: HEALTH ASSESSMENT on 03-31-2025 Cholesterol in HDL [Mass/Vol] 34 mg/dL Low >40 [facility] Comment on above: National Cholesterol Education Program (NCEP) guidelines:<40 mg/dL: Low HDL-cholesterol (major risk factor for CHD)>= 60 mg/dL: High HDL-cholesterol (negative risk factor for CHD)HDL-cholesterol is affected by a number of factors, e.g. smoking, exercise, hormones, sex and age. Serum or plasma cholesterol measurement (mass/volume)Ordered By: HEALTH ASSESSMENT on 03-31-2025 Cholesterol [Mass/Vol] 194 mg/dL <201 [facility] Comment on above: Cholesterol level, D esirable <200 mg/dLBorderline high cholesterol 200-239 mg/dLHigh cholesterol >=240 mg/dLRecommendations of the NCEP Adult Treatment Panel for the following risk-cutoff thresholds for the [place] population. Serum or plasma urea nitroge n measurement (mass/volume)Ordered By: HEALTH ASSESSMENT on 03-31-2025 Urea nitrogen [Mass/Vol] 13 mg/dL 4-19 [facility] Serum or plasma uric acid me asurement (mass/volume)Ordered By: [facility] ASSESSMENT on 03-31-2025 Urate [Mass/Vol] 7.7 mg/dL High 3.5-7.2 [facility] Comment on above: The drugs N-Acetylcy steine and Metamizole may falsely depress this assay. Sodium levelOrdered By: HEAL TH ASSESSMENT on 03-31-2025 Sodium [Moles/Vol] 142 mmol/L 133-145 [facility] TSH DL <= 0.005 mIU/L QnOrde red By: Birgit Mcclelland on 03-31-2025 TSH Qn 4.580 uIU/mL High 0.300-4.20 0 [facility] Thyroid Stim Hormone (TSH)on 03-31-2025 TSH 4.580 uIU/mL High 0.300-4.20 0 [facility] Comment on above: Performed By: #### L 500.2900, L100.0200 #### [facility] [address] [place], [address] Total proteinOrdered By: YASMIN [facility] ASSESSMENT on 03-31-2025 Protein [Mass/Vol] 7.3 g/dL 5.9-8.4 [facility] Triglycerides measurementOrd ered By: HEALTH ASSESSMENT on 03-31-2025 Triglyceride [Mass/Vol] 349 mg/dL High <199 [facility] Comment on above: The drugs N-Acetylcy steine and Metamizole may falsely depress this assay. Normal range: <150 mg/dLBorderline High: 150-199 mg/dLHigh: 200-499 mg/dLVery High: >500 mg/dL White blood cell (WBC) count Ordered By: Birgit Mcclelland on 03-31-2025 WBC (Bld) [#/Vol] 5.7 10*3/uL 4.4-11.0 [facility] White blood cell (WBC) count Ordered By: HEALTH ASSESSMENT on 03-31-2025 WBC (Bld) [#/Vol] 5.8 10*3/uL 4.4-11.0 [facility] Hemoglobin A1con 11-02-2024 HbA1c (Bld) [Mass fraction] 6.0 % Normal <=5.6 [facility] Comment on above: Performed By: #### L 501.9985 #### [facility] [address] [place], [place], [address] Hemoglobin A1c percentageOrd ered By: Birgit Mcclelland on 11-02-2024 HbA1c (Bld) [Mass fraction] 6.0 % >5.7 [facility] [facility] Hemoglobin A1con 07-13-2024 HbA1c (Bld) [Mass fraction] 5.7 % High 3.8-5.6 [facility] Comment on above: Result Comment: Norm al < 5.7 % Prediabetic 5.7 - 6.4 % Diabetic >or= 6.5 % Please note range changes. Performed By: #### L 501.2300, L501.9985, L501.9520, L501.1400 #### [facility] [address] [place], [place], [address] Phosphoruson 07-13-2024 Phosphate [Mass/Vol] 2.6 mg/dL Normal 2.5-4.9 [facility] Comment on above: Performed By: #### L 501.2300, L501.9985, L501.9520, L501.1400 #### [facility] [address] [place], [address] Thyroid Stim Hormone (TSH)on 07-13-2024 TSH 8.560 uIU/mL High 0.358-3.74 0 [facility] Comment on above: Performed By: #### L 501.2300, L501.9985, L501.9520, L501.1400 #### [facility] [address] [place], [address] Uric Acidon 07-13-2024 URIC 9.6 mg/dL High 3.5-7.2 [facility] Comment on above: Result Comment: The drugs N-Acetylcysteine and Metamizole may falsely depress this assay. Performed By: #### L 501.2300, L501.9985, L501.9520, L501.1400 #### [facility] [address] [place], [address] CBC, Employeeon 05-15-2024 Absolute Lymph 2.37 X10 3/uL Normal 0.83-4.51 [facility] Comment on above: Performed By: #### L 500.2900, L400.0100, L100.0200 #### [facility] [address] [place], [address] Absolute Neut 4.4 X10 3/uL Normal 2.0-7.7 [facility] Comment on above: Performed By: #### L 500.2900, L400.0100, L100.0200 #### [facility] [address] [place], [address] Basophils/100 WBC (Bld) 0.4 % Normal 0-1 [facility] Comment on above: Performed By: #### L 500.2900, L400.0100, L100.0200 #### [facility] [address] [place], [address] Eosinophils/100 WBC (Bld) 2.6 % Normal 0-5 [facility] Comment on above: Performed By: #### L 500.2900, L400.0100, L100.0200 #### [facility] [address] [place], [address] Erythrocyte distribution width (RBC) [Ratio] 13.6 % Normal 11.6-14.6 [facility] Comment on above: Performed By: #### L 500.2900, L400.0100, L100.0200 #### [facility] [address] [place], [address] Hematocrit (Bld) [Volume fraction] 46.3 % Normal 40-54 [facility] Comment on above: Performed By: #### L 500.2900, L400.0100, L100.0200 #### [facility] [address] [place], [address] Hemoglobin (Bld) [Mass/Vol] 15.5 g/dL Normal 13.0-16.5 [facility] Comment on above: Performed By: #### L 500.2900, L400.0100, L100.0200 #### [facility] [address] [place], [address] Lymphocytes/100 WBC (Bld) 32.3 % Normal 19-41 [facility] Comment on above: Performed By: #### L 500.2900, L400.0100, L100.0200 #### [facility] [address] [place], [address] MCH (RBC) [Entitic mass] 28.3 pg Normal 27.0-32.0 [facility] Comment on above: Performed By: #### L 500.2900, L400.0100, L100.0200 #### [facility] [address] [place], [address] MCHC (RBC) [Mass/Vol] 33.5 g/dL Normal 32-36 [facility] Comment on above: Performed By: #### L 500.2900, L400.0100, L100.0200 #### [facility] [address] [place], [address] MCV (RBC) [Entitic vol] 84.6 fL Normal 80-94 [facility] Comment on above: Performed By: #### L 500.2900, L400.0100, L100.0200 #### [facility] [address] [place], [address] Monocytes/100 WBC (Bld) 4.9 % Normal 0-10 [facility] Comment on above: Performed By: #### L 500.2900, L400.0100, L100.0200 #### [facility] [address] [place], [address] Neutrophils/100 WBC (Bld) 59.4 % Normal 47-70 [facility] Comment on above: Performed By: #### L 500.2900, L400.0100, L100.0200 #### [facility] [address] [place], [address] NRBC # 0.00 10 3/uL Normal 0-5 [facility] Comment on above: Performed By: #### L 500.2900, L400.0100, L100.0200 #### [facility] [address] [place], [address] Nucleated RBC (Bld) [#/Vol] 0 10*3/uL Normal 0-5 [facility] Comment on above: Performed By: #### L 500.2900, L400.0100, L100.0200 #### [facility] [address] [place], [address] Platelet mean volume (Bld) [Entitic vol] 9.7 fL Normal 6.2-12.0 [facility] Comment on above: Performed By: #### L 500.2900, L400.0100, L100.0200 #### [facility] [address] [place], [address] Platelets (Bld) [#/Vol] 197 10*3/uL Normal 150-450 [facility] Comment on above: Performed By: #### L 500.2900, L400.0100, L100.0200 #### [facility] [address] [place], [address] RBC (Bld) [#/Vol] 5.47 10*6/uL Normal 4.6-6.2 [facility] Comment on above: Performed By: #### L 500.2900, L400.0100, L100.0200 #### [facility] [address] [place], [address] RDW SD 41.8 fl Normal 35.1-43.9 [facility] Comment on above: Performed By: #### L 500.2900, L400.0100, L100.0200 #### [facility] [address] [place], [address] WBC (Bld) [#/Vol] 7.3 10*3/uL Normal 4.4-11.0 [facility] Comment on above: Performed By: #### L 500.2900, L400.0100, L100.0200 #### [facility] [address] [place], [address] Employee Profileon 4 Albumin [Mass/Vol] 3.9 g/dL Normal 3.2-5.0 [facility] Comment on above: Performed By: #### L 500.2900, L400.0100, L100.0200 #### [facility] [address] [place], [address] Albumin/Globulin [Mass ratio] 1.0 {ratio} Normal 0.9-2.4 [facility] Comment on above: Performed By: #### L 500.2900, L400.0100, L100.0200 #### [facility] [address] [place], [address] ALK P 78 U/L Normal 45-117 [facility] Comment on above: Performed By: #### L 500.2900, L400.0100, L100.0200 #### [facility] [address] [place], [address] ALT [Catalytic activity/Vol] 50 U/L Normal 16-61 [facility] Comment on above: Performed By: #### L 500.2900, L400.0100, L100.0200 #### [facility] [address] [place], [address] AST [Catalytic activity/Vol] 36 U/L Normal 15-37 [facility] Comment on above: Performed By: #### L 500.2900, L400.0100, L100.0200 #### [facility] [address] [place], [address] Bilirubin [Mass/Vol] 1.40 mg/dL High 0.20-1.00 [facility] Comment on above: Result Comment: For patients on eltrombopag therapy, use of Dimension Onemo TBIL is not recommended. Performed By: #### L 500.2900, L400.0100, L100.0200 #### [facility] [address] [place], [address] Bilirubin.direct [Mass/Vol] 0.23 mg/dL Normal 0.00-0.30 [facility] Comment on above: Performed By: #### L 500.2900, L400.0100, L100.0200 #### [facility] [address] [place], [address] BUN/CRE 8.5 RATIO Low 10-20 [facility] Comment on above: Performed By: #### L 500.2900, L400.0100, L100.0200 #### [facility] [address] [place], [address] CA,Total 9.5 mg/dL Normal 8.5-10.1 [facility] Comment on above: Performed By: #### L 500.2900, L400.0100, L100.0200 #### [facility] [address] [place], [address] Chloride [Moles/Vol] 108 mmol/L High 98-107 [facility] Comment on above: Performed By: #### L 500.2900, L400.0100, L100.0200 #### [facility] [address] [place], [address] CHOL:HDL 5.40 Normal [facility] Comment on above: Performed By: #### L 500.2900, L400.0100, L100.0200 #### [facility] [address] [place], [address] Cholesterol [Mass/Vol] 174 mg/dL Normal 200 [facility] Comment on above: Result Comment: <200 mg/dL Desirable 200-240 mg/dL Borderline >240 mg/dL High Risk Performed By: #### L 500.2900, L400.0100, L100.0200 #### [facility] [address] [place], [address] Cholesterol in HDL [Mass/Vol] 32 mg/dL Low [facility] Comment on above: Result Comment: The drugs N-Acetylcysteine and Metamizole may falsely depress this assay. Reference Range HDL <40 mg/dL Low HDL Cholesterol HDL >or= 60 mg/dL High HDL Cholesterol Performed By: #### L 500.2900, L400.0100, L100.0200 #### [facility] [address] [place], [address] Cholesterol in LDL [Mass/Vol] 80 mg/dL Normal 0-130 [facility] Comment on above: Performed By: #### L 500.2900, L400.0100, L100.0200 #### [facility] [address] [place], [address] Cholesterol in VLDL [Mass/Vol] 62 mg/dL High 5-40 [facility] Comment on above: Performed By: #### L 500.2900, L400.0100, L100.0200 #### [facility] [address] [place], [address] CO2 [Moles/Vol] 28.0 mmol/L Normal 21.0-32.0 [facility] Comment on above: Performed By: #### L 500.2900, L400.0100, L100.0200 #### [facility] [address] [place], [address] Creatinine [Mass/Vol] 1.17 mg/dL Normal 0.70-1.30 [facility] Comment on above: Result Comment: The validity of the calculated GFR GFRAA in patients over 70 years has not been determined. Clinical correlation is essential. Performed By: #### L 500.2900, L400.0100, L100.0200 #### [facility] [address] [place], [address] EST GFR - AA 82 mL/min Normal >60 [facility] Comment on above: Result Comment: Afri can Anguillan GFR Calc Performed By: #### L 500.2900, L400.0100, L100.0200 #### [facility] [address] [place], [address] GAP 6 Normal 5-15 [facility] Comment on above: Performed By: #### L 500.2900, L400.0100, L100.0200 #### [facility] [address] [place], [address] GFR/1.73 sq M.predicted among non-blacks MDRD (S/P/Bld) [Vol rate/Area] 68 mL/min/{1.73_m2} Normal >60 [facility] Comment on above: Result Comment: Non- GFR Calc Performed By: #### L 500.2900, L400.0100, L100.0200 #### [facility] [address] [place], [address] Globulin (S) [Mass/Vol] 3.9 g/dL Normal 2.2-4.2 [facility] Comment on above: Performed By: #### L 500.2900, L400.0100, L100.0200 #### [facility] [address] [place], [address] Glucose [Mass/Vol] 132 mg/dL High 74-106 [facility] Comment on above: Result Comment: Fast ing Glucose result greater than or equal to 126 mg/dL suggests DIABETES MELLITUS per A.D.A. criteria. Performed By: #### L 500.2900, L400.0100, L100.0200 #### [facility] [address] [place], [address] LDH 200 U/L Normal 87-241 [facility] Comment on above: Performed By: #### L 500.2900, L400.0100, L100.0200 #### [facility] [address] [place], [address] Phosphate [Mass/Vol] 2.1 mg/dL Low 2.5-4.9 [facility] Comment on above: Performed By: #### L 500.2900, L400.0100, L100.0200 #### [facility] [address] [place], [address] Potassium [Moles/Vol] 3.5 mmol/L Normal 3.5-5.1 [facility] Comment on above: Performed By: #### L 500.2900, L400.0100, L100.0200 #### [facility] [address] [place], [address] Sodium [Moles/Vol] 141 mmol/L Normal 136-145 [facility] Comment on above: Performed By: #### L 500.2900, L400.0100, L100.0200 #### [facility] [address] [place], [address] T PROT 7.8 g/dL Normal 6.4-8.2 [facility] Comment on above: Performed By: #### L 500.2900, L400.0100, L100.0200 #### [facility] [address] [place], [address] Triglyceride [Mass/Vol] 308 mg/dL High [facility] Comment on above: Result Comment: The drugs N-Acetylcysteine and Metamizole may falsely depress this assay. Serum Triglycerides Reference Interval Normal <150 mg/dL Borderline high 150 - 199 mg/dL High 200 - 499 mg/dL Very High > or = 500 mg/dL Performed By: #### L 500.2900, L400.0100, L100.0200 #### [facility] [address] [place], [address] Urea nitrogen [Mass/Vol] 10 mg/dL Normal 7-18 [facility] Comment on above: Performed By: #### L 500.2900, L400.0100, L100.0200 #### [facility] [address] [place], [address] URIC 8.8 mg/dL High 3.5-7.2 [facility] Comment on above: Result Comment: The drugs N-Acetylcysteine and Metamizole may falsely depress this assay. Performed By: #### L 500.2900, L400.0100, L100.0200 #### [facility] [address] [place], [address] Urinalysis, Employeeon 05-15 BILIRUBIN URINE Normal Negative [facility] Comment on above: Order Comment: CLEAN CATCH Result Comment: NOT WANTED Performed By: #### L 500.2900, L400.0100, L100.0200 #### [facility] [address] [place], [address] Clarity (U) Normal Clear [facility] Comment on above: Order Comment: CLEAN CATCH Result Comment: NOT WANTED Performed By: #### L 500.2900, L400.0100, L100.0200 #### [facility] [address] [place], [address] Color (U) Normal Yellow [facility] Comment on above: Order Comment: CLEAN CATCH Result Comment: NOT WANTED Performed By: #### L 500.2900, L400.0100, L100.0200 #### [facility] [address] [place], [address] GLUCOSE, UR Normal Normal [facility] Comment on above: Order Comment: CLEAN CATCH Result Comment: NOT WANTED Performed By: #### L 500.2900, L400.0100, L100.0200 #### [facility] [address] [place], [address] KETONE UR Normal Negative [facility] Comment on above: Order Comment: CLEAN CATCH Result Comment: NOT WANTED Performed By: #### L 500.2900, L400.0100, L100.0200 #### [facility] [address] [place], [address] LEUK ESTERASE Normal Negative [facility] Comment on above: Order Comment: CLEAN CATCH Result Comment: NOT WANTED Performed By: #### L 500.2900, L400.0100, L100.0200 #### [facility] [address] [place], [address] Nitrite Ql (U) Normal Negative [facility] Comment on above: Order Comment: CLEAN CATCH Result Comment: NOT WANTED Performed By: #### L 500.2900, L400.0100, L100.0200 #### [facility] [address] [place], [address] OCCULT BLOOD-UR Normal Negative [facility] Comment on above: Order Comment: CLEAN CATCH Result Comment: NOT WANTED Performed By: #### L 500.2900, L400.0100, L100.0200 #### [facility] [address] [place], [address] pH UR Normal 5.0 - 8.0 [facility] Comment on above: Order Comment: CLEAN CATCH Result Comment: NOT WANTED Performed By: #### L 500.2900, L400.0100, L100.0200 #### [facility] [address] [place], [address] PROT DIPSTX Normal Negative [facility] Comment on above: Order Comment: CLEAN CATCH Result Comment: NOT WANTED Performed By: #### L 500.2900, L400.0100, L100.0200 #### [facility] [address] [place], [address] SP.GR. DIPSTX Normal 1.002-1.03 0 [facility] Comment on above: Order Comment: CLEAN CATCH Result Comment: NOT WANTED Performed By: #### L 500.2900, L400.0100, L100.0200 #### [facility] [address] [place], [address] UR Preservative Normal [facility] Comment on above: Order Comment: CLEAN CATCH Result Comment: NOT WANTED Performed By: #### L 500.2900, L400.0100, L100.0200 #### [facility] [address] [place], [address] UROBILI Normal Normal [facility] Comment on above: Order Comment: CLEAN CATCH Result Comment: NOT WANTED Performed By: #### L 500.2900, L400.0100, L100.0200 #### [facility] [address] [place], [address] No Panel InformationOrdered By: Birgit Mcclelland on 08-16-2023 Thyroid Stimulating Hormone (TSH) 4.15 uIU/mL 0.358-3.74 [facility] Basophil percentageOrdered B y: Birgit Mcclelland on 06-21-2023 Chloride [Moles/Vol] 108 mmol/L 98-107 [facility] Glucose [Mass/Vol] 128 mg/dL 74-106 [facility] Comment on above: Fasting Glucose resu lt greater than or equal to 126 mg/dL suggests DIABETES MELLITUS per A.D.A. criteria. Potassium [Moles/Vol] 3.3 mmol/L 3.5-5.1 [facility] Sodium [Moles/Vol] 138 mmol/L 136-145 [facility] - Chemistry and C hemistry - challengeOrdered By: Birgit Mcclelland on 06-21-2023 CO2 [Moles/Vol] 24.0 mmol/L 21.0-32.0 [facility] Urea nitrogen/Creatinine [Mass ratio] 9.6 mg/mg 10-20 [facility] No Panel InformationOrdered By: Birgit Mcclelland on 06-21-2023 Estimated GFR (MDRD) Amer 70 mL/min >60 [facility] Comment on above: GFR Calc Estimated GFR (MDRD) Non-Af Amer 58 mL/min >60 [facility] Comment on above: Non- GFR Calc Thyroid Stimulating Hormone (TSH) 4.82 uIU/mL 0.358-3.74 [facility] Serum or plasma calcium andrés urement (mass/volume)Ordered By: Birgit Mcclelland on 06-21-2023 Calcium [Mass/Vol] 9.2 mg/dL 8.5-10.1 [facility] Serum or plasma creatinine m easurement (mass/volume)Ordered By: Birgit Mcclelland on 06-21-2023 Creatinine [Mass/Vol] 1.35 mg/dL 0.70-1.30 [facility] Comment on above: The validity of the calculated GFR & GFRAA in patients over 70 years has not been determined. Clinical correlation is essential. Serum or plasma urea nitroge n measurement (mass/volume)Ordered By: Birgit Mcclelland on 06-21-2023 Urea nitrogen [Mass/Vol] 13 mg/dL 7-18 [facility] Thin prep Papanicolaou smear with manual screeningOrdered By: Birgit Mcclelland on 06-21-2023 Thin prep Papanicolaou smear with manual screening 6 5-15 [facility] Whole blood hemoglobin A1c/t otal hemoglobin ratio (mass fraction)Ordered By: Birgit Mcclelland on 06-21-2023 HbA1c (Bld) [Mass fraction] 5.6 % 3.8-5.6 [facility] Comment on above: Normal < 5.7 % Predi abetic 5.7 - 6.4 % Diabetic >or= 6.5 % Please note range changes. Absolute lymphocyte countOrd ered By: HEALTH ASSESSMENT on 05-14-2023 Lymphocytes Auto (Unsp spec) [#/Vol] 1.64 10*3/uL 0.83-4.51 [facility] Absolute reticulocyte countO rdered By: HEALTH ASSESSMENT on 05-14-2023 Reticulocytes (Bld) [#/Vol] 0.00 10*3/uL 0-5 [facility] Basophil percentageOrdered B y: HEALTH ASSESSMENT on 05-14-2023 Basophil percentage 1.7 mg/dL 2.5-4.9 [facility] Bilirubin [Mass/Vol] 0.70 mg/dL 0.20-1.00 [facility] Comment on above: For patients on eltr ombopag therapy, use of Dimension Onemo TBIL is not recommended. Chloride [Moles/Vol] 108 mmol/L 98-107 [facility] Cholesterol [Mass/Vol] 166 mg/dL <200 [facility] Comment on above: <200 mg/dL Desirable 200-240 mg/dL Borderline >240 mg/dL High Risk Glucose [Mass/Vol] 152 mg/dL 74-106 [facility] Comment on above: Fasting Glucose resu lt greater than or equal to 126 mg/dL suggests DIABETES MELLITUS per A.D.A. criteria. LDH [Catalytic activity/Vol] 197 U/L 87-241 [facility] Neutrophils (Bld) [#/Vol] 4.3 10*3/uL 2.0-7.7 [facility] Potassium [Moles/Vol] 3.7 mmol/L 3.5-5.1 [facility] Protein [Mass/Vol] 7.7 g/dL 6.4-8.2 [facility] Sodium [Moles/Vol] 140 mmol/L 136-145 [facility] Triglyceride [Mass/Vol] 283 mg/dL <199 [facility] Comment on above: The drugs N-Acetylcy steine and Metamizole may falsely depress this assay.Serum Triglycerides Reference Interval Normal <150 mg/dL Borderline high 150 - 199 mg/dL High 200 - 499 mg/dL Very High > or = 500 mg/dL WBC (Bld) [#/Vol] 6.6 10*3/uL 4.4-11.0 [facility] Blood erythrocytes count (nu mber/volume)Ordered By: HEALTH ASSESSMENT on 05-14-2023 RBC (Bld) [#/Vol] 5.12 10*6/uL 4.6-6.2 [facility] Blood hemoglobin measurement (mass/volume)Ordered By: HEALTH ASSESSMENT on 05-14-2023 Hemoglobin (Bld) [Mass/Vol] 15.3 g/dL 13.0-16.5 [facility] Blood platelet mean volumeOr dered By: HEALTH ASSESSMENT on 05-14-2023 Platelet mean volume (Bld) [Entitic vol] 9.5 fL 6.2-12.0 [facility] Determination of erythrocyte mean corpuscular volume (MCV)Ordered By: HEALTH ASSESSMENT on 05-14-2023 MCV (RBC) [Entitic vol] 85.9 fL 80-94 [facility] Direct bilirubinOrdered By: HEALTH ASSESSMENT on 05-14-2023 Bilirubin.direct [Mass/Vol] 0.20 mg/dL 0.00-0.30 [facility] Hematocrit Auto (Bld) [Volum e fraction]Ordered By: HEALTH ASSESSMENT on 05-14-2023 Hematocrit (Bld) [Volume fraction] 44.0 % 40-54 [facility] - Chemistry and C hemistry - challengeOrdered By: HEALTH ASSESSMENT on 05-14-2023 ALP [Catalytic activity/Vol] 65 U/L 45-117 [facility] ALT [Catalytic activity/Vol] 76 U/L 16-61 [facility] Cholesterol.total/Chol esterol in HDL [Mass ratio] 5.00 {ratio} [facility] CO2 [Moles/Vol] 27.0 mmol/L 21.0-32.0 [facility] Globulin (S) [Mass/Vol] 3.9 g/dL 2.2-4.2 [facility] Urea nitrogen/Creatinine [Mass ratio] 7.6 mg/mg 10-20 [facility] - Hematology and Cell countsOrdered By: HEALTH ASSESSMENT on 05-14-2023 Erythrocyte distribution width (RBC) [Entitic vol] 41.0 fL 35.1-43.9 [facility] Erythrocyte distribution width (RBC) [Ratio] 13.3 % 11.6-14.6 [facility] MCH (RBC) [Entitic mass] 29.9 pg 27.0-32.0 [facility] Nucleated RBC/100 WBC (Bld) [Ratio] 0 % 0-5 [facility] MCHC Auto (RBC) [Mass/Vol]Or dered By: HEALTH ASSESSMENT on 05-14-2023 MCHC (RBC) [Mass/Vol] 34.8 g/dL 32-36 [facility] No Panel InformationOrdered By: HEALTH ASSESSMENT on 05-14-2023 Estimated GFR (MDRD) Amer 72 mL/min >60 [facility] Comment on above: GFR Calc Estimated GFR (MDRD) Non-Af Amer 59 mL/min >60 [facility] Comment on above: Non- GFR Calc Platelets bldOrdered By: YASMIN LTH ASSESSMENT on 05-14-2023 Platelets (Bld) [#/Vol] 193 10*3/uL 150-450 [facility] Segmented neutrophils/100 WB C Auto (Bld)Ordered By: HEALTH ASSESSMENT on 05-14-2023 Segmented neutrophils/100 WBC (Bld) 64.9 % 47-70 [facility] Serum or plasma albumin andrés urement (mass/volume)Ordered By: HEALTH ASSESSMENT on 05-14-2023 Albumin [Mass/Vol] 3.8 g/dL 3.2-5.0 [facility] Serum or plasma albumin/glob ulin mass ratioOrdered By: HEALTH ASSESSMENT on 05-14-2023 Albumin/Globulin [Mass ratio] 1.0 {ratio} 0.9-2.4 [facility] Serum or plasma calcium andrés urement (mass/volume)Ordered By: HEALTH ASSESSMENT on 05-14-2023 Calcium [Mass/Vol] 9.1 mg/dL 8.5-10.1 [facility] Serum or plasma cholesterol in HDL measurement (mass/volume)Ordered By: HEALTH ASSESSMENT on 05-14-2023 Cholesterol in HDL [Mass/Vol] 33 mg/dL >40 [facility] Comment on above: The drugs N-Acetylcy steine and Metamizole may falsely depress this assay. Reference Range HDL <40 mg/dL Low HDL Cholesterol HDL >or= 60 mg/dL High HDL Cholesterol Serum or plasma cholesterol in VLDL measurement (mass/volume)Ordered By: HEALTH ASSESSMENT on 05-14-2023 Cholesterol in VLDL [Mass/Vol] 57 mg/dL 5-40 [facility] Serum or plasma creatinine m easurement (mass/volume)Ordered By: HEALTH ASSESSMENT on 05-14-2023 Creatinine [Mass/Vol] 1.32 mg/dL 0.70-1.30 [facility] Comment on above: The validity of the calculated GFR & GFRAA in patients over 70 years has not been determined. Clinical correlation is essential. Serum or plasma low density lipoprotein (LDL) cholesterol measurement (mass/volume)Ordered By: HEALTH ASSESSMENT on 05-14-2023 Cholesterol in LDL [Mass/Vol] 76 mg/dL 0-130 [facility] Serum or plasma urea nitroge n measurement (mass/volume)Ordered By: HEALTH ASSESSMENT on 05-14-2023 Urea nitrogen [Mass/Vol] 10 mg/dL 7-18 [facility] Serum or plasma uric acid me asurement (mass/volume)Ordered By: HEALTH ASSESSMENT on 05-14-2023 Urate [Mass/Vol] 6.0 mg/dL 3.5-7.2 [facility] Comment on above: The drugs N-Acetylcy steine and Metamizole may falsely depress this assay. Thin prep Papanicolaou smear with manual screeningOrdered By: HEALTH ASSESSMENT on 05-14-2023 Thin prep Papanicolaou smear with manual screening 59 U/L 15-37 [facility] Thin prep Papanicolaou smear with manual screening 5 5-15 [facility] Glucose Glucometer (BldC) [M ass/Vol]on 03-21-2022 Glucose [Mass/Vol] 173 mg/dL 74-106 [facility] Work Phone: Comment on above: MANAGEMENT OF PATIEN T CARE PER NURSING PROTOCOL Absolute lymphocyte counton 02-26-2022 Lymphocytes Auto (Unsp spec) [#/Vol] 1.85 10*3/uL 0.83-4.51 [facility] Work Phone: Basophil percentageon 2021 Basophils/100 WBC (Bld) 0.4 % 0-1 [facility] Work Phone: Bilirubin [Mass/Vol] 0.50 mg/dL 0.20-1.00 [facility] Work Phone: Comment on above: For patients on eltr ombopag therapy, use of Dimension Onemo TBIL is not recommended. Chloride [Moles/Vol] 108 mmol/L 98-107 [facility] Work Phone: Cholesterol [Mass/Vol] 195 mg/dL <200 [facility] Work Phone: Comment on above: <200 mg/dL Desirable 200-240 mg/dL Borderline >240 mg/dL High Risk Eosinophils/100 WBC (Bld) 2.0 % 0-5 [facility] Work Phone: Glucose [Mass/Vol] 115 mg/dL 74-106 [facility] Work Phone: Comment on above: Fasting Glucose resu lt from 100 to 125 mg/dL suggests IMPAIRED HOMEOSTASIS per A.D.A. criteria. Neutrophils (Bld) [#/Vol] 4.9 10*3/uL 2.0-7.7 [facility] Work Phone: Neutrophils/100 WBC (Bld) 65.3 % 47-70 [facility] Work Phone: Potassium [Moles/Vol] 3.7 mmol/L 3.5-5.1 [facility] Work Phone: Protein [Mass/Vol] 7.4 g/dL 6.4-8.2 [facility] Work Phone: Sodium [Moles/Vol] 143 mmol/L 136-145 [facility] Work Phone: Triglyceride [Mass/Vol] 289 mg/dL <199 [facility] Work Phone: Comment on above: The drugs N-Acetylcy steine and Metamizole may falsely depress this assay.Serum Triglycerides Reference Interval Normal <150 mg/dL Borderline high 150 - 199 mg/dL High 200 - 499 mg/dL Very High > or = 500 mg/dL WBC (Bld) [#/Vol] 7.6 10*3/uL 4.4-11.0 [facility] Work Phone: Blood erythrocytes count (nu mber/volume)on 02-26-2022 RBC (Bld) [#/Vol] 4.83 10*6/uL 4.6-6.2 [facility] Work Phone: Blood hemoglobin measurement (mass/volume)on 02-26-2022 Hemoglobin (Bld) [Mass/Vol] 14.1 g/dL 13.0-16.5 [facility] Work Phone: Blood lymphocytes/100 leukoc yteson 02-26-2022 Lymphocytes/100 WBC (Bld) 24.4 % 19-41 [facility] Work Phone: Blood monocytes/100 leukocyt eson 02-26-2022 Monocytes/100 WBC (Bld) 7.4 % 0-10 [facility] Work Phone: Blood platelet mean volumeon 02-26-2022 Platelet mean volume (Bld) [Entitic vol] 10.1 fL 6.2-12.0 [facility] Work Phone: Determination of erythrocyte mean corpuscular volume (MCV)on 02-26-2022 MCV (RBC) [Entitic vol] 87.2 fL 80-94 [facility] Work Phone: Hematocrit Auto (Bld) [Volum e fraction]on 02-26-2022 Hematocrit (Bld) [Volume fraction] 42.1 % 40-54 [facility] Work Phone: INR in Blood by Coagulation assayon 02-26-2022 INR Coag (Bld) [Relative time] 1.0 {INR} [facility] Work Phone: Laboratory - Chemistry and C hemistry - challengeon 02-26-2022 Magnesium [Mass/Vol] 1.9 mg/dL 1.6-2.6 [facility] Work Phone: ALP [Catalytic activity/Vol] 56 U/L 45-117 [facility] Work Phone: ALT [Catalytic activity/Vol] 62 U/L 16-61 [facility] Work Phone: CO2 [Moles/Vol] 28.0 mmol/L 21.0-32.0 [facility] Work Phone: Globulin (S) [Mass/Vol] 3.5 g/dL 2.2-4.2 [facility] Work Phone: Urea nitrogen/Creatinine [Mass ratio] 14.2 mg/mg 10-20 [facility] Work Phone: Laboratory - Coagulationon 0 02-26-2022 aPTT Coag (Bld) [Time] 26.0 s 24.1-36.2 [facility] Work Phone: PT Coag (PPP) [Time] 13.1 s 11.7-14.9 [facility] Work Phone: Laboratory - Hematology and Cell countson 02-26-2022 Erythrocyte distribution width (RBC) [Entitic vol] 42.9 fL 35.1-43.9 [facility] Work Phone: Erythrocyte distribution width (RBC) [Ratio] 13.6 % 11.6-14.6 [facility] Work Phone: Immature granulocytes/100 WBC (Bld) 0.500 % 0.0-0.9 [facility] Work Phone: Comment on above: IG% - Immature Granu locytes (promyelocytes, myelocytes and metamyelocytes) > 1% indicates that a LEFT SHIFT is Present. MCH (RBC) [Entitic mass] 29.2 pg 27.0-32.0 [facility] Work Phone: Nucleated RBC/100 WBC (Bld) [Ratio] 0 % 0-5 [facility] Work Phone: MCHC Auto (RBC) [Mass/Vol]on 02-26-2022 MCHC (RBC) [Mass/Vol] 33.5 g/dL 32-36 [facility] Work Phone: No Panel Informationon 02-26 Estimated GFR (MDRD) Amer 81 mL/min >60 [facility] Work Phone: Comment on above: GFR Calc Estimated GFR (MDRD) Non-Af Amer 67 mL/min >60 [facility] Work Phone: Comment on above: Non- GFR Calc Thyroid Stimulating Hormone (TSH) 3.77 uIU/mL 0.358-3.74 [facility] Work Phone: Platelets bldon 02-26-2022 Platelets (Bld) [#/Vol] 203 10*3/uL 150-450 [facility] Work Phone: Serum or plasma albumin andrés urement (mass/volume)on 02-26-2022 Albumin [Mass/Vol] 3.9 g/dL 3.2-5.0 [facility] Work Phone: Serum or plasma albumin/glob ulin mass ratioon 02-26-2022 Albumin/Globulin [Mass ratio] 1.1 {ratio} 0.9-2.4 [facility] Work Phone: Serum or plasma calcium andrés urement (mass/volume)on 02-26-2022 Calcium [Mass/Vol] 9.3 mg/dL 8.5-10.1 [facility] Work Phone: Serum or plasma cholesterol in HDL measurement (mass/volume)on 02-26-2022 Cholesterol in HDL [Mass/Vol] 39 mg/dL >40 [facility] Work Phone: Comment on above: The drugs N-Acetylcy steine and Metamizole may falsely depress this assay. Reference Range HDL <40 mg/dL Low HDL Cholesterol HDL >or= 60 mg/dL High HDL Cholesterol Serum or plasma cholesterol in VLDL measurement (mass/volume)on 02-26-2022 Cholesterol in VLDL [Mass/Vol] 58 mg/dL 5-40 [facility] Work Phone: Serum or plasma creatinine m easurement (mass/volume)on 02-26-2022 Creatinine [Mass/Vol] 1.20 mg/dL 0.70-1.30 [facility] Work Phone: Comment on above: The validity of the calculated GFR & GFRAA in patients over 70 years has not been determined. Clinical correlation is essential. Serum or plasma low density lipoprotein (LDL) cholesterol measurement (mass/volume)on 02-26-2022 Cholesterol in LDL [Mass/Vol] 98 mg/dL 0-130 [facility] Work Phone: Serum or plasma urea nitroge n measurement (mass/volume)on 02-26-2022 Urea nitrogen [Mass/Vol] 17 mg/dL 7-18 [facility] Work Phone: Thin prep Papanicolaou smear with manual screeningon 02-26-2022 Thin prep Papanicolaou smear with manual screening 38 U/L 15-37 [facility] Work Phone: Thin prep Papanicolaou smear with manual screening 7 5-15 [facility] Work Phone: ANCAOrdered By: System Manag er on 03-14-2018 Atypical pANCA <1:20 Normal [facility] Work Phone: Comment on above: The atypical pANCA p attern has been observed in asignificant percentage of patients with ulcerative colitis,primary sclerosing cholangitis and autoimmune hepatitis. The presence of posi tive fluorescence exhibiting P-ANCA orC-ANCA patterns alone is not specific for the diagnosis ofWegener's Granulomatosis (WG) or microscopic polyangiitis.Decisions about treatment should not be based solely onANCA IFA results. The [employer] ANCA [employer] Consensusrecommends follow up testing of positive sera with both NJ-3 and MPO-ANCA enzyme immunoassays. As many as 5% serumsamples are positive only by EIA. Ref. AM J Clin [id number];111:507-513. ANCA <1:20 Normal [facility] Work Phone: Comment on above: [facility] (refer to re port for specific site)refer to report for address and phone number The presence of posi tive fluorescence exhibiting P-ANCA orC-ANCA patterns alone is not specific for the diagnosis ofWegener's Granulomatosis (WG) or microscopic polyangiitis.Decisions about treatment should not be based solely onANCA IFA results. The [employer] ANCA [employer] Consensusrecommends follow up testing of positive sera with both NJ-3 and MPO-ANCA enzyme immunoassays. As many as 5% serumsamples are positive only by EIA. Ref. AM J Clin [id number];111:507-513. The atypical pANCA p attern has been observed in asignificant percentage of patients with ulcerative colitis,primary sclerosing cholangitis and autoimmune hepatitis. CBC W/Diff, AutomatedOrdered By: Flask Maker on 03-14-2018 Absolute Lymph 1.20 {X10_3/ul} Normal 0.83-4.51 Compr ehensive [facility] Medicine Work Phone: Absolute Neut 5.7 {X10_3/uL} Normal 2.0-7.7 [facility] Work Phone: Comment on above: [facility] [address] [place], [address] Basophils/100 WBC (Bld) 0.3 % Normal 0-1 [facility] Work Phone: Comment on above: [facility] [address] [place], [address] Basophils/100 WBC Auto (Bld) 0.3 % Normal 0-1 [facility] Work Phone: Eosinophils/100 WBC (Bld) 1.5 % Normal 0-5 [facility] Work Phone: Comment on above: [facility] [address] [place], [address] Eosinophils/100 WBC Auto (Bld) 1.5 % Normal 0-5 [facility] Work Phone: Erythrocyte distribution width Auto Ratio (RBC) 14.0 % Normal 11.6-14.6 [facility] Work Phone: Erythrocyte distribution width Ratio (RBC) 14.0 % Normal 11.6-14.6 [facility] Work Phone: Comment on above: [place] [address] [place], [address] Hematocrit Auto Volume Fraction (Bld) 42.9 % Normal 40-54 [facility] Work Phone: Hematocrit Volume Fraction (Bld) 42.9 % Normal 40-54 [facility] Work Phone: Comment on above: [place] [id number] [place], [address] Hemoglobin mass conc (Bld) 14.6 g/dL Normal 13.0-16.5 [facility] Work Phone: Comment on above: [facility] [address] [place], [address] IM GRAN % 0.100 % Normal 0.0-0.9 [facility] Work Phone: Comment on above: IG% - Immature Granu locytes (promyelocytes, myelocytes andmetamyelocytes) > 1% indicates that a LEFT SHIFT is Present. [facility] [address] [place], [address] Lymphocytes #/vol (Bld) 1.20 {X10_3/ul} Normal 0.83-4.51 [facility] Work Phone: Comment on above: [facility] [address] [place], [address] Lymphocytes/100 WBC (Bld) 16.0 % Abnormal 19-41 [facility] Work Phone: Comment on above: [facility] [address] [place], [address] Lymphocytes/100 WBC Auto (Bld) 16.0 % Abnormal -41 [facility] Work Phone: MCH Auto Entitic mass (RBC) 28.6 pg Normal 27.0-32.0 [facility] Work Phone: MCH Entitic mass (RBC) 28.6 pg Normal 27.0-32.0 [facility] Work Phone: Comment on above: [facility] [address] [place], [address] MCHC Auto mass conc (RBC) 34.0 {g/gl} Normal 32-36 [facility] Work Phone: MCHC mass conc (RBC) 34.0 {g/gl} Normal 32-36 [facility] prehensive Internal Medicine Work Phone: Comment on above: [facility] [address] [place], [address] MCV Auto Entitic volume (RBC) 84.0 fL Normal 80-94 [facility] Work Phone: MCV Entitic volume (RBC) 84.0 fL Normal 80-94 [facility] Work Phone: Comment on above: [facility] [address] [place], [address] Monocytes/100 WBC Auto (Bld) 6.3 % Normal 0-10 [facility] Work Phone: Comment on above: [facility] [address] [place], [address] Neutrophils/100 WBC (Bld) 75.8 % Abnormal 47-70 [facility] Work Phone: Comment on above: [facility] [address] [place], [address] Neutrophils/100 WBC Auto (Bld) 75.8 % Abnormal 47-70 [facility] Work Phone: Platelet mean volume Auto Entitic volume (Bld) 9.8 fL Normal 6.2-12.0 [facility] Work Phone: Platelet mean volume Entitic volume (Bld) 9.8 fL Normal 6.2-12.0 Comprehensi ve [facility] Work Phone: Comment on above: [facility] [address] [place], [address] Platelets #/vol (Bld) 232 10*3/uL Normal 150-450 [facility] Work Phone: Comment on above: [facility] [address] [place], [address] Platelets Auto #/vol (Bld) 232 10*3/uL Normal 150-450 [facility] Work Phone: RBC #/vol (Bld) 5.11 {M/mm3} Normal 4.6-6.2 Compreh ensive [facility] Work Phone: Comment on above: [facility] [address] [place], [address] RBC Auto #/vol (Bld) 5.11 {M/mm3} Normal 4.6-6.2 Co m[facility] Work Phone: RDW SD 42.5 fL Normal 35.1-43.9 [facility] Work Phone: Comment on above: [facility] [address] [place], [address] WBC #/vol (Bld) 7.5 10*3/uL Normal 4.4-11.0 Comprehe nsive [facility] Work Phone: Comment on above: [facility] [address] [place], [address] WBC Auto #/vol (Bld) 7.5 10*3/uL Normal 4.4-11.0 Com prehensive [facility] Medicine Work Phone: CCP IgG AntibodiesOrdered By : Flask Maker on 03-14-2018 Cyclic citrullinated peptide IgG Qn 7 {units} Normal 0-19 [facility] Work Phone: Comment on above: Negative <20 Weak po sitive 20 - 39 Moderate positive 40 - 59 Strong positive >59Performed at: [employer] [facility] [address] [id number] Director: Umang North MD, Phone: [phone] at: [facility] [employer] [address] [id number] Director: Rodrigo Paiz PhD, Phone: [phone] [facility] (refer to re port for specific site)refer to report for address and phone number CRPOrdered By: System Manage r on 03-14-2018 CRP High sensitivity method mass conc 33.20 mg/L Abnormal 0.0-3.0 [facility] Work Phone: Comment on above: C-Reactive Protein ( CRP) provides useful information for thediagnosis, therapy and monitoring of inflammatory processesand associated diseases. For the evaluation of Relative Riskfor Cardiovascular Disease, a High Sensitivity CRP (HSCRP)should be ordered. [facility] [address] [place], [place], [phone] [facility] Metabolic Prof ilOrdered By: Flask Maker on 03-14-2018 Comprehensive metabolic 2000 panel 19 U/L Normal 15-37 Comprehensi ve Internal Medicine Work Phone: Comment on above: [facility] [address] [place], [place], [address] Comprehensive metabolic 2000 panel 9.2 mg/dL Normal 8.5-10.1 Comprehensi ve [facility] Medicine Work Phone: Comment on above: [facility] [address] [place], [place], [phone] Comprehensive metabolic 2000 panel 8.2 {RATIO} Abnormal 10-20 Comprehensi [facility] Work Phone: Comment on above: [facility] [address] [place], [place], [phone] Comprehensive metabolic 2000 panel 66 U/L Normal 45-117 Comprehensi ve [facility] Medicine Work Phone: Comment on above: [facility] [address] [place], [place], [phone] Comprehensive metabolic 2000 panel 23 U/L Normal 16-61 Comprehensi ve Internal Medicine Work Phone: Comment on above: [facility] [address] [place], [place], [phone] Comprehensive metabolic 2000 panel 7.4 g/dL Normal 6.4-8.2 Comprehensi ve [facility] Work Phone: Comment on above: [facility] [address] [place], [place], [phone] Comprehensive metabolic 2000 panel 90 mL/min Normal Comprehensi ve Internal Medicine Work Phone: Comment on above: GFR Calc [facility] [address] [place], [place], [phone] Comprehensive metabolic 2000 panel 3.5 g/dL Normal 3.2-5.0 Comprehensi ve [facility] Medicine Work Phone: Comment on above: [facility] [address] [place], [place], [phone] Comprehensive metabolic 2000 panel 0.50 mg/dL Normal 0.20-1.00 Compre[facility]si ve [facility] Work Phone: Comment on above: [facility] [address] [place], [place], [address] Comprehensive metabolic 2000 panel 140 mmol/L Normal 136-145 Comprehensi ve [facility] Work Phone: Comment on above: [facility] [address] [place], [place], [phone] Comprehensive metabolic 2000 panel 3.5 mmol/L Normal 3.5-5.1 Comprehensi ve [facility] Medicine Work Phone: Comment on above: [facility] [address] [place], [place], [phone] Comprehensive metabolic 2000 panel 105 mmol/L Normal 98-107 Comprehensi ve [facility] Work Phone: Comment on above: [facility] [address] [place], [place], [phone] Comprehensive metabolic 2000 panel 3.9 g/dL Normal 2.2-4.2 Comprehensi ve Internal Medicine Work Phone: Comment on above: [facility] [address] [place], [place], [phone] Comprehensive metabolic 2000 panel 28.0 mmol/L Normal 21.0-32.0 Comprehensi ve Internal Medicine Work Phone: Comment on above: [facility] [address] [place], [place], [phone] Comprehensive metabolic 2000 panel 7 1 Normal 5-15 Comprehensi ve Internal Medicine Work Phone: Comment on above: [facility] [address] [place], [place], [phone] Comprehensive metabolic 2000 panel 0.9 {RATIO} Normal 0.9-2.4 Comprehensi ve [facility] Medicine Work Phone: Comment on above: [facility] [address] [place], [place], [phone] Comprehensive metabolic 2000 panel 1.10 mg/dL Normal 0.70-1.30 Comprehensi ve Internal Medicine Work Phone: Comment on above: The validity of the calculated GFR AND GFRAA in patients over70 years has not been determined. Clinical correlation isessential. [facility] [address] [place], [place], [phone] Comprehensive metabolic 2000 panel 75 mL/min Normal Comprehensi ve Internal Medicine Work Phone: Comment on above: Non- GFR Calc [place] [address] [place], [place], [phone] Comprehensive metabolic 2000 panel 83.67 ml/min Normal Comprehensi ve Internal Medicine Work Phone: Comment on above: [place] [address] [place], [place], [phone] Comprehensive metabolic 2000 panel 9 mg/dL Normal 7-18 Comprehensi ve [facility] Medicine Work Phone: Comment on above: [place] [address] [place], [place], [phone] Comprehensive metabolic 2000 panel 107 mg/dL Abnormal 74-106 Comprehensi ve [facility] Medicine Work Phone: Comment on above: Fasting Glucose resu lt from 100 to 125 mg/dLsuggests IMPAIRED HOMEOSTASIS per A.D.A. criteria.Please note revised GLUCOSE reference range [id number]/02/2018. [facility] [address] [place], [place], [phone] Culture, Blood (WB)Ordered B y: Flask Maker on 03-14-2018 Bacteria identified Cx Nom (Bld) See Note Normal [facility] Work Phone: Comment on above: BCNO FUNGUS ISOLATED AT 30 DAYS [place] [address] [place], [place], [phone] Erythrocyte Sed RateOrdered By: Flask Maker on 03-14-2018 SED RATE 29 mm/h Abnormal 0-20 [facility] Work Phone: Erythrocyte Sed Rate 29 mm/h Abnormal 0-20 Comp rehensive Internal Medicine Work Phone: Comment on above: [facility] [address] [place], [place], [address] HIV - WCHOrdered By: Flask Maker on 03-14-2018 HIV - WCH Non-Reactive Normal Comprehensiv e Internal Medicine Work Phone: HIV - [facility] Non-Reactive Normal Comprehensiv e Internal Medicine Work Phone: Comment on above: [facility] [address] [place], [place], [phone] Hepatitis ABC ProfileOrdered By: Flask Maker on 03-14-2018 COMMENT Comment Normal [facility] Work Phone: Comment on above: Non reactive HCV ant ibody screen is consistent with no HCVinfection, unless recent infection is suspected or otherevidence exists to indicate HCV infection. HCV Ab 0.1 {s/co_ratio} Normal 0.0-0.9 Comprehe nsive Internal Medicine Work Phone: HEP A AB,[id number] Negative Normal Comprehen sive Internal Medicine Work Phone: Hep B Ana AB Non Reactive Normal Comprehens pauline Internal Medicine Work Phone: Comment on above: Non Reactive: Incons istent with immunity, less than 10 mIU/mL Reactive: Consistent with immunity, greater than 9.9 mIU/mL Hepatitis ABC Profile 0.1 {s/co_ratio} Normal 0.0-0.9 [facility] Work Phone: Comment on above: [facility] (refer to re port for specific site)refer to report for address and phone number Hepatitis ABC Profile Non Reactive Normal C omprehensive Internal Medicine Work Phone: Comment on above: Non Reactive: Incons istent with immunity, less than 10 mIU/mL Reactive: Consistent with immunity, greater than 9.9 mIU/mL [facility] (refer to re port for specific site)refer to report for address and phone number Hepatitis ABC Profile Comment Normal Com prehensive Internal Medicine Work Phone: Comment on above: Non reactive HCV ant ibody screen is consistent with no HCVinfection, unless recent infection is suspected or otherevidence exists to indicate HCV infection. [facility] (refer to re port for specific site)refer to report for address and phone number Lactic AcidOrdered By: Syste m Rice Farmer on 03-14-2018 Lactate molar conc 1.5 mmol/L Normal 0.4-2.0 [facility] Internal Medicine Work Phone: Comment on above: Yes/No query for Sep sis Lactate Rule [facility] Wlomviwmhj[address]3 [facility] [address] [place], [place], [address] Lyme Antibodies,W BlotOrdere d By: Flask Maker on 03-14-2018 LYME IgG INTERP Negative Normal [facility] Internal Medicine Work Phone: Comment on above: Positive: 5 of the f ollowing Borrelia-specific bands: 18,23,28,30,39,41,45,58, 66, and 93. Negative: No bands or banding patterns which do not meet positive criteria. LYME IgM INTERP Positive Abnormal [facility] Internal Medicine Work Phone: Comment on above: Note: An equivocal o r positive EIA result followed by anegative Western Blot result is considered NEGATIVE. Anequivocal or positive EIA result followed by a positiveWestern Blot is considered POSITIVE by the CDC.Positive: 2 of the following bands: 23,39 or 41Negative: No bands or banding patterns which do not meetpositive criteria.Criteria for positivity are those recommended byCDC/ASTPHLD. p23=Osp C, s85=bilhpavrwPuqc:Sera from individuals with the following may cross reactin the Lyme Western Blot assays: other spirochetal diseases(periodontal disease, leptospirosis, relapsing fever, yaws,and pinta); connective autoimmune (Rheumatoid Arthritis andSystemic Lupus Erythematosus and also individuals withAntinuclear Antibody); other infections (Helio MountainSpotted Fever; Patti-Hay Virus, and Cytomegalovirus). P28 Ab Absent Normal [facility] Work Phone: P39 Ab Present Abnormal [facility] Work Phone: Lyme Antibodies,W Blot Absent Normal [facility] Internal Medicine Work Phone: Comment on above: [facility] (refer to re port for specific site)refer to report for address and phone number Lyme Antibodies,W Blot Present Abnormal [facility] Internal Medicine Work Phone: Comment on above: [facility] (refer to re port for specific site)refer to report for address and phone number Lyme Antibodies,W Blot Negative Normal [facility] Internal Medicine Work Phone: Comment on above: Positive: 5 of the f ollowing Borrelia-specific bands: 18,23,28,30,39,41,45,58, 66, and 93. Negative: No bands or banding patterns which do not meet positive criteria. [facility] (refer to re port for specific site)refer to report for address and phone number Lyme Antibodies,W Blot Positive Abnormal [facility] Internal Medicine Work Phone: Comment on above: Note: An equivocal o r positive EIA result followed by anegative Western Blot result is considered NEGATIVE. Anequivocal or positive EIA result followed by a positiveWestern Blot is considered POSITIVE by the CDC.Positive: 2 of the following bands: 23,39 or 41Negative: No bands or banding patterns which do not meetpositive criteria.Criteria for positivity are those recommended byCDC/ASTPHLD. p23=Osp C, h10=rxilgawemJicc:Sera from individuals with the following may cross reactin the Lyme Western Blot assays: other spirochetal diseases(periodontal disease, leptospirosis, relapsing fever, yaws,and pinta); connective autoimmune (Rheumatoid Arthritis andSystemic Lupus Erythematosus and also individuals withAntinuclear Antibody); other infections (Helio MountainSpotted Fever; Patti-Hay Virus, and Cytomegalovirus). [facility] (refer to re port for specific site)refer to report for address and phone number Partial Thromboplast TimeOrd ered By: Flask Maker on 03-14-2018 aPTT Coag time (Bld) 33.2 s Normal 24.1-36.2 [facility] Internal Medicine Work Phone: aPTT Coag time (PPP) 33.2 s Normal 24.1-36.2 [facility] Internal Medicine Work Phone: Comment on above: [facility] [address] [place], [address] Prothrombin Time w/INROrdere d By: Flask Maker on 03-14-2018 INR Coag RelTime (PPP) 1.0 {INR} Normal [facility] Internal Medicine Work Phone: Comment on above: [facility] [address] [place], [place], [id number] Prothrombin time (PT) Coag time (PPP) 13.5 s Normal 11.7-14.9 [facility] Internal Medicine Work Phone: Comment on above: [facility] [address] [place], [place], [id number] Troponin-IOrdered By: Flask Maker on 03-14-2018 Troponin I.cardiac mass conc ng/mL Normal [facility] Internal Medicine Work Phone: Comment on above: TROPONIN-I EXPECTED VALUES <0.045 Negative 0.045 - 0.590 Consistent with Cardiac Damage > OR = 0.600 Critical Value Not every elevated troponin is indicative of AK. Thesevalues should be used with clinical judgement in examiningthe patient's clinical picture for diagnosis. To establisha diagnosis of AK versus myocardial injury, there must be ademonstrated rise and/or fall in the troponin values, inaddition to ischemic symptoms, EKG changes, new regionalwall motion abnormality, and/or angiographical evidence. PLEASE NOTE: REFERENCE RANGES EDITED 17 [facility] [address] [place], [place], [id number] ASO TiterOrdered By: Flask Maker on 02-28-2018 Streptolysin O Ab Qn 34.6 {IU/mL} Normal 0.0-200.[address] [facility] Internal Medicine Work Phone: Comment on above: Performed at: [address] [id number] Director: Rodrigo Paiz PhD, Phone: [phone] FAX RESULTS TO HERIBERTO LOWE @[id number] (refer to report for specific site)refer to report for address and phone number Anti-dsDNA AbOrdered By: Cuate tem Rice Farmer on 02-28-2018 DNA double strand Ab Qn (S) [IU]/mL Normal 0-9 [facility] Work Phone: Comment on above: Negative <5 Equivoca l 5 - 9 Positive >9Performed at: - [facility] [id number] Director: Rodrigo Paiz PhD, Phone: [phone] FAX RESULTS TO HERIBERTO LOWE @[id number] (refer to report for specific site)refer to report for address and phone number CBC W/Diff, AutomatedOrdered By: Flask Maker on 02-28-2018 Absolute Lymph 1.16 {X10_3/ul} Normal 0.83-4.51 Compr ehensive Internal Medicine Work Phone: Absolute Neut 5.2 {X10_3/uL} Normal 2.0-7.7 Compreh ensive Internal Medicine Work Phone: Comment on above: FAX RESULTS TO HERIBERTO LOWE @[id number] [place] [address] [address] [place], [address](319) Basophils/100 WBC (Bld) 0.3 % Normal 0-1 [facility] Work Phone: Comment on above: FAX RESULTS TO HERIBERTO LOWE @[id number] [place] [address] [address] [place], [address](661) Basophils/100 WBC Auto (Bld) 0.3 % Normal 0-1 [facility] Work Phone: Eosinophils/100 WBC (Bld) 1.9 % Normal 0-5 [facility] Work Phone: Comment on above: FAX RESULTS TO HERIBERTO LOWE @[id number] Health Hamilton [address]qmtfttht[address] [place], [address](784) Eosinophils/100 WBC Auto (Bld) 1.9 % Normal 0-5 [facility] Work Phone: Erythrocyte distribution width Auto Ratio (RBC) 13.7 % Normal 11.6-14.6 [facility] Work Phone: Erythrocyte distribution width Ratio (RBC) 13.7 % Normal 11.6-14.6 [facility] Work Phone: Comment on above: FAX RESULTS TO HERIBERTO LOWE @[id number] [place] [address] [address] [place], [place], [id number] Hematocrit Auto Volume Fraction (Bld) 40.5 % Normal 40-54 [facility] Work Phone: Hematocrit Volume Fraction (Bld) 40.5 % Normal 40-54 [facility] Work Phone: Comment on above: FAX RESULTS TO HERIBERTO LOWE @[id number] [place] [address] [address] [place], [address] Hemoglobin mass conc (Bld) 14.1 g/dL Normal 13.0-16.5 [facility] Work Phone: Comment on above: FAX RESULTS TO HERIBERTO LOWE @[id number] [place] [address] [address] [place], [address] IM GRAN % 0.300 % Normal 0.0-0.9 [facility] Work Phone: Comment on above: IG% - Immature Granu locytes (promyelocytes, myelocytes andmetamyelocytes) > 1% indicates that a LEFT SHIFT is Present. FAX RESULTS TO HERIBERTO LOWE @[id number] [place] [address] [address] [place], [address] Lymphocytes #/vol (Bld) 1.16 {X10_3/ul} Normal 0.83-4.51 [facility] Work Phone: Comment on above: FAX RESULTS TO HERIBERTO LOWE @[id number] [place] [address] [address] [place], [address] Lymphocytes/100 WBC (Bld) 16.9 % Abnormal 19-41 [facility] Work Phone: Comment on above: FAX RESULTS TO HERIBERTO LOWE @[id number] [place] [address] [address] [place], [address] Lymphocytes/100 WBC Auto (Bld) 16.9 % Abnormal 19-41 [facility] Work Phone: MCH Auto Entitic mass (RBC) 29.5 pg Normal 27.0-32.0 [facility] Work Phone: MCH Entitic mass (RBC) 29.5 pg Normal 27.0-32.[address] [facility] Internal Medicine Work Phone: Comment on above: FAX RESULTS TO HERIBERTO LOWE @[id number] [place] [address] [address] [place], [address] MCHC Auto mass conc (RBC) 34.8 {g/gl} Normal 32-36 [facility] Work Phone: MCHC mass conc (RBC) 34.8 {g/gl} Normal 32-36 [facility] prehensive Internal Medicine Work Phone: Comment on above: FAX RESULTS TO HERIBERTO LOWE @[id number] [place] [address] [address] [place], [address](479) MCV Auto Entitic volume (RBC) 84.7 fL Normal 80-94 [facility] Work Phone: MCV Entitic volume (RBC) 84.7 fL Normal 80-94 [facility] Work Phone: Comment on above: FAX RESULTS TO HERIBERTO OJEDA LOWE @[id number] [place] [address] [address] [place], [address] Monocytes/100 WBC Auto (Bld) 5.5 % Normal 0-10 [facility] Work Phone: Comment on above: FAX RESULTS TO HREIBERTO LOWE @[id number] Health Hamilton [address] [place], [address] Neutrophils/100 WBC (Bld) 75.1 % Abnormal 47-70 [facility] Work Phone: Comment on above: FAX RESULTS TO HERIBERTO LOWE @[id number] [place] [address] [place], [address] Neutrophils/100 WBC Auto (Bld) 75.1 % Abnormal 47-70 [facility] Work Phone: Platelet mean volume Auto Entitic volume (Bld) 9.9 fL Normal 6.2-12.0 [facility] Work Phone: Platelet mean volume Entitic volume (Bld) 9.9 fL Normal 6.2-12.0 Comprehensi ve Internal Medicine Work Phone: Comment on above: FAX RESULTS TO HERIBERTO LOWE @[id number] [place] [address] [place], [address] Platelets #/vol (Bld) 203 10*3/uL Normal 150-450 [facility] Work Phone: Comment on above: FAX RESULTS TO HERIBERTO LOWE @[id number] [place] [address] [place], [address] Platelets Auto #/vol (Bld) 203 10*3/uL Normal 150-450 [facility] Work Phone: RBC #/vol (Bld) 4.78 {M/mm3} Normal 4.6-6.2 Compreh ensive Internal Medicine Work Phone: Comment on above: FAX RESULTS TO HERIBERTO LOWE @[id number] [place] [address] [place], [address] RBC Auto #/vol (Bld) 4.78 {M/mm3} Normal 4.6-6.2 Co mprehensive Internal Medicine Work Phone: RDW SD 42.2 fL Normal 35.1-43.9 [facility] Work Phone: Comment on above: FAX RESULTS TO HERIBERTO LOWE @[id number] Health Hamilton Vqlzxoclgg[address] [place], [address] WBC #/vol (Bld) 6.9 10*3/uL Normal 4.4-11.0 Comprehe nsive Internal Medicine Work Phone: Comment on above: FAX RESULTS TO HERIBERTO LOWE @[id number] Health Hamilton Foebsbaboo[address] [place], [address] WBC Auto #/vol (Bld) 6.9 10*3/uL Normal 4.4-11.0 Com prehensive Internal Medicine Work Phone: Comprehensive Metabolic Prof ilOrdered By: Flask Maker on 02-28-2018 Comprehensive metabolic 2000 panel 25.0 mmol/L Normal 21.0-32.0 Comprehensi ve Internal Medicine Work Phone: Comment on above: FAX RESULTS TO HERIBERTO LOWE @[id number] Health Hamilton [address]ygmcg[address] [place], [address] Comprehensive metabolic 2000 panel 105 mg/dL Normal 74-106 Comprehensi ve Internal Medicine Work Phone: Comment on above: Fasting Glucose resu lt from 100 to 125 mg/dLsuggests IMPAIRED HOMEOSTASIS per A.D.A. criteria.Please note revised GLUCOSE reference range ctsdjotjy50/02/2018. FAX RESULTS TO HERIBERTO LOWE @[id number] Health Hamilton Fukyrlozuk[address] [place], [address] Comprehensive metabolic 2000 panel 0.9 {RATIO} Normal 0.9-2.4 Comprehensi ve Internal Medicine Work Phone: Comment on above: FAX RESULTS TO HERIBERTO LOEW @[id number] [place] [address] [address] [place], [address] Comprehensive metabolic 2000 panel 7 1 Normal 5-15 Comprehensi ve Internal Medicine Work Phone: Comment on above: FAX RESULTS TO HERIBERTO LOWE @[id number] [place] [address] [place], [address] Comprehensive metabolic 2000 panel 11 mg/dL Normal 7-18 Comprehensi ve Internal Medicine Work Phone: Comment on above: FAX RESULTS TO HERIBERTO LOWE @[id number] [place] [address] [place], [address] Comprehensive metabolic 2000 panel 1.18 mg/dL Normal 0.70-1.30 Comprehensi ve Internal Medicine Work Phone: Comment on above: The validity of the calculated GFR AND GFRAA in patients over70 years has not been determined. Clinical correlation isessential. FAX RESULTS TO HERIBERTO LOWE @[id number] [place] [address] [place], [address] Comprehensive metabolic 2000 panel 3.7 g/dL Normal 3.2-5.0 Comprehensi ve Internal Medicine Work Phone: Comment on above: FAX RESULTS TO HERIBERTO LOWE @[id number] [place] [address] [place], [address] Comprehensive metabolic 2000 panel 69 mL/min Normal Comprehensi ve Internal Medicine Work Phone: Comment on above: Non- GFR Calc FAX RESULTS TO HERIBERTO LOWE @[id number] [place] [address] [place], [address] Comprehensive metabolic 2000 panel 20 U/L Normal 15-37 Comprehensi ve Internal Medicine Work Phone: Comment on above: FAX RESULTS TO HERIBERTO LOWE @[id number] [place] [address] [place], [address] Comprehensive metabolic 2000 panel 70 U/L Normal 45-117 Comprehensi ve Internal Medicine Work Phone: Comment on above: FAX RESULTS TO HERIBERTO LOWE @[id number] [place] [address] [address]kviberjvm[address] [place], [address] Comprehensive metabolic 2000 panel 25 U/L Normal 16-61 Comprehensi ve Internal Medicine Work Phone: Comment on above: FAX RESULTS TO HERIBERTO LOWE @[id number] [place] [address] [address]ur[address] [place], [address] Comprehensive metabolic 2000 panel 0.50 mg/dL Normal 0.20-1.00 Comprehensi ve Internal Medicine Work Phone: Comment on above: FAX RESULTS TO HERIBERTO LOWE @[id number] [place] [address] Elnkfmxrlq5760 [address] [place], [address] Comprehensive metabolic 2000 panel 83 mL/min Normal Comprehensi ve Internal Medicine Work Phone: Comment on above: GFR Calc FAX RESULTS TO HERIBERTO LOWE @[id number] [place] [address] [address]fs[address]bvpk[address] [place], [address] Comprehensive metabolic 2000 panel 107 mmol/L Normal 98-107 Comprehensi ve Internal Medicine Work Phone: Comment on above: FAX RESULTS TO HERIBERTO LOWE @[id number] [place] [address] Gbacfqdnyg3421 [address] [place], [place], [address] Comprehensive metabolic 2000 panel 3.7 mmol/L Normal 3.5-5.1 Comprehensi ve Internal Medicine Work Phone: Comment on above: FAX RESULTS TO HERIBERTO LOWE @[id number] [place] [address] Qydmrmdwcp9469 [address] [place], [address] Comprehensive metabolic 2000 panel 139 mmol/L Normal 136-145 Comprehensi ve Internal Medicine Work Phone: Comment on above: FAX RESULTS TO HERIBERTO LOWE @[id number] [place] [address] [place], [place], [address] Comprehensive metabolic 2000 panel 9.3 {RATIO} Abnormal 10-20 Comprehensi ve Internal Medicine Work Phone: Comment on above: FAX RESULTS TO HERIBERTO LOWE @[id number] [place] [address] [place], [address] Comprehensive metabolic 2000 panel 4.1 g/dL Normal 2.2-4.2 Comprehensi ve Internal Medicine Work Phone: Comment on above: FAX RESULTS TO HERIBERTO LOWE @[id number] [place] [address] [address]qq[address]wwgq[address]116 [address] [place], [address] Comprehensive metabolic 2000 panel 8.8 mg/dL Normal 8.5-10.1 Comprehensi ve Internal Medicine Work Phone: Comment on above: FAX RESULTS TO HERIBERTO LOWE @[id number] [place] [address] [place], [address] Comprehensive metabolic 2000 panel 7.8 g/dL Normal 6.4-8.2 Comprehensi ve Internal Medicine Work Phone: Comment on above: FAX RESULTS TO HERIBERTO LOWE @[id number] [place] [address] [address]bzpdthdjv7583 [address] [place], [address] Erythrocyte Sed RateOrdered By: Flask Maker on 02-28-2018 SED RATE 29 mm/h Abnormal 0-20 [facility] Work Phone: Erythrocyte Sed Rate 29 mm/h Abnormal 0-20 Comp rehensive Internal Medicine Work Phone: Comment on above: FAX RESULTS TO HERIBERTO LOWE @[id number] [place] [address] [place], [address] Surgical Pathologyon 018 Surgical Pathology [id number] [facility] PATHOLOGY AND LABORATORY MEDICINE [address] [place] [address] FINAL SURGICAL PATHOLOGY REPORT NAME: SHERMAN CORONEL .O.B.: 1965 52 Y [facility] NO[facility] [id number]: [id number] PROCEDURE 02/28/2018 DATE:SURGEON: MARISSA CANALES RECEIVED 02/28/2018 DATE:ATTENDING: ELISE MAS MD REPORT DATE: 03/05/2018 COPIES TO: DIAGNOSIS:SKIN, RIGHT VENTRAL PROXIMAL FOREARM, PUNCH (DIF) - NEGATIVE DIRECTIMMUNOFLUORESCENC EComment: Direct antibody localization demonstrates no evidence ofimmunoreactivity for immunoglobulins IgG, IgM, IgA, complement C3, orfibrinogen on sections of frozen skin.ELIE/JÚNIOR JEFFERSON M.D. CLINICAL INFORMATION: Erythematous plaques. Dermatomyositis.SPECIME N: SKIN GROSS DESCRIPTION:Biopsy right ventral proximal forearmReceived in polytransport media is a dome-shaped segment of queen-whiteskin measuring 0.5 x 0.3 x 0.1 cm. The specimen is set aside forfurther processing. (1 ns, 1) SHI/aDjuan: The following statement applies to allimmunohistochemistry , in situ hybridization, molecular studies, andimmunofluorescence testing.The use of one or more reagents in the above tests is regulated as ananalyte specific reagent (ASR). These tests were developed and theirperformance characteristics determined by the clinical laboratories [facility]. They have not been cleared by the US Food and DrugAdministration (FDA). The FDA has determined that such clearance orapproval is not necessary.All the above immunostains were performed on paraffin embedded tissue.Appropriate positive and negative controls (where applicable) were runin parallel with the patient's specimen; these controls showed expectedstaining pattern, with acceptable intensity of staining.Immunohistoche mical assays have not been validated on decalcifiedtissues. Results should be interpreted with caution given the raisedpossibility of false negativity on decalcified specimens.Professional Performing Location: [place] [address]. DEPARTMENT OF PATHOLOGY AND LABORATORY MEDICINE [place], [place] [address] Normal [facility] ANTINUCLEAR ANTIBODIES DIREC TOrdered By: Flask Maker on 02-26-2018 Nuclear Ab Ql (S) Negative Normal Compreh ensive Internal Medicine Work Phone: Comment on above: Performed at: [address] [id number] Director: Rodrigo Paiz PhD, Phone: [phone] SEND RESULT OF CRISELDA LOWE @[id number] (refer to report for specific site)refer to report for address and phone number CBC W/Diff, AutomatedOrdered By: Flask Maker on 02-26-2018 Absolute Lymph 0.97 {X10_3/ul} Normal 0.83-4.51 Compr ehensive Internal Medicine Work Phone: Absolute Neut 4.3 {X10_3/uL} Normal 2.0-7.7 Compreh ensive Internal Medicine Work Phone: Comment on above: [facility] [address] [place], [address] Basophils/100 WBC (Bld) 0.2 % Normal 0-1 [facility] Work Phone: Comment on above: [facility] [address] [place], [address] Basophils/100 WBC Auto (Bld) 0.2 % Normal 0-1 [facility] Work Phone: Eosinophils/100 WBC (Bld) 1.8 % Normal 0-5 [facility] Work Phone: Comment on above: [facility] [address] [place], [address] Eosinophils/100 WBC Auto (Bld) 1.8 % Normal 0-5 [facility] Work Phone: Erythrocyte distribution width Auto Ratio (RBC) 13.9 % Normal 11.6-14.6 [facility] Work Phone: Erythrocyte distribution width Ratio (RBC) 13.9 % Normal 11.6-14.6 [facility] Work Phone: Comment on above: [place] [address] [place], [address] Hematocrit Auto Volume Fraction (Bld) 41.6 % Normal 40-54 [facility] Work Phone: Hematocrit Volume Fraction (Bld) 41.6 % Normal 40-54 [facility] Work Phone: Comment on above: [facility] [address] [place], [address] Hemoglobin mass conc (Bld) 14.2 g/dL Normal 13.0-16.5 [facility] Work Phone: Comment on above: [facility] [address] [place], [address] IM GRAN % 0.200 % Normal 0.0-0.9 [facility] Work Phone: Comment on above: IG% - Immature Granu locytes (promyelocytes, myelocytes andmetamyelocytes) > 1% indicates that a LEFT SHIFT is Present. [facility] [facility] [address] [place], [place], [phone] Lymphocytes #/vol (Bld) 0.97 {X10_3/ul} Normal 0.83-4.51 [facility] Work Phone: Comment on above: [place] [address] [place], [address] Lymphocytes/100 WBC (Bld) 17.0 % Abnormal 19-41 [facility] Work Phone: Comment on above: [place] [id number] [place], [address] Lymphocytes/100 WBC Auto (Bld) 17.0 % Abnormal 19-41 [facility] Work Phone: MCH Auto Entitic mass (RBC) 29.1 pg Normal 27.0-32.0 [facility] Work Phone: MCH Entitic mass (RBC) 29.1 pg Normal 27.0-32.0 [facility] Internal Medicine Work Phone: Comment on above: [place] [id number] [place], [address] MCHC Auto mass conc (RBC) 34.1 {g/gl} Normal 32-36 [facility] Work Phone: MCHC mass conc (RBC) 34.1 {g/gl} Normal 32-36 [facility] Work [facility]: Comment on above: [facility] [address] [place], [place], [phone] MCV Auto Entitic volume (RBC) 85.2 fL Normal 80-94 [facility] Work Phone: MCV Entitic volume (RBC) 85.2 fL Normal 80-94 [facility] Work Phone: Comment on above: [facility] [address] [place], [address] Monocytes/100 WBC Auto (Bld) 5.4 % Normal 0-10 [facility] Work Phone: Comment on above: [facility] [address] [place], [address] Neutrophils/100 WBC (Bld) 75.4 % Abnormal 47-70 [facility] Work Phone: Comment on above: [facility] [address] [place], [address] Neutrophils/100 WBC Auto (Bld) 75.4 % Abnormal 47-70 [facility] Work Phone: Platelet mean volume Auto Entitic volume (Bld) 9.4 fL Normal 6.2-12.0 [facility] Work Phone: Platelet mean volume Entitic volume (Bld) 9.4 fL Normal 6.2-12.0 Comprehensi Internal Medicine Work Phone: Comment on above: [facility] [address] [place], [address] Platelets #/vol (Bld) 194 10*3/uL Normal 150-450 [facility] Work Phone: Comment on above: [facility] [address] [place], [address] Platelets Auto #/vol (Bld) 194 10*3/uL Normal 150-450 [facility] Work Phone: RBC #/vol (Bld) 4.88 {M/mm3} Normal 4.6-6.2 Compreh ensive Internal Medicine Work Phone: Comment on above: [facility] [address] [place], [address] RBC Auto #/vol (Bld) 4.88 {M/mm3} Normal 4.6-6.2 Co mprehensive Internal Medicine Work Phone: RDW SD 42.8 fL Normal 35.1-43.9 [facility] Work Phone: Comment on above: [facility] [address] [place], [address] WBC #/vol (Bld) 5.7 10*3/uL Normal 4.4-11.0 Comprehe nsive Internal Medicine Work Phone: Comment on above: [facility] [address] [place], [address] WBC Auto #/vol (Bld) 5.7 10*3/uL Normal 4.4-11.0 Com [facility] Work Phone: CRPOrdered By: System Manage r on 02-10-2018 CRP High sensitivity method mass conc 10.70 mg/L Abnormal 0.0-3.0 [facility] Work Phone: Comment on above: C-Reactive Protein ( CRP) provides useful information for thediagnosis, therapy and monitoring of inflammatory processesand associated diseases. For the evaluation of Relative Riskfor Cardiovascular Disease, a High Sensitivity CRP (HSCRP)should be ordered. [facility] [address] [place], [address] Culture, UrineOrdered By: [employer] stem Rice Farmer on 02-10-2018 Bacteria identified Cx Nom (U) See Note Normal [facility] Work Phone: Comment on above: Urine CultureCulture exhibits no growth. [facility] [address] [place], [place], [phone] Erythrocyte Sed RateOrdered By: Flask Maker on 02-10-2018 SED RATE 9 mm/h Normal 0-20 [facility] Work Phone: Erythrocyte Sed Rate 9 mm/h Normal 0-20 [facility] Work Phone: Comment on above: [facility] [address] [place], [address] Urinalysis, Routine (Dipstic k)Ordered By: Flask Maker on 02-10-2018 BILIRUBIN URINE Negative Normal Com[facility]hen [facility] Internal [facility] Work Phone: CLARITY Clear Normal [facility] Work Phone: Clarity Nom (U) Clear Normal Comprehen sive Internal Medicine Work Phone: Comment on above: How was Urine Obtain ed? [facility] [address] [place], [id number] COLOR Yellow Normal [facility] Work Phone: Color Nom (U) Yellow Normal Comprehensi Internal Medicine Work Phone: Comment on above: How was Urine Obtain ed? [facility] [address] [place], [id number] GLUCOSE, UR Normal Normal [facility] Work Phone: pH UR 5.0 1 Normal 5.0 - 8.0 [facility] Work Phone: SP.GR. DIPSTX 1.015 1 Normal 1.002-1.03 0 [facility] Work Phone: Urinalysis, Routine (Dipstick) Negative Normal [facility] Internal Medicine Work Phone: Comment on above: How was Urine Obtain ed? [facility] [address] [place], [id number] Urinalysis, Routine (Dipstick) Normal Normal [facility] Work Phone: Comment on above: How was Urine Obtain ed? [facility] [address] [place], [phone] Urinalysis, Routine (Dipstick) 5.0 1 Normal 5.0 - 8.0 [facility] Work Phone: Comment on above: How was Urine Obtain ed? [facility] [address] [place], [address] Urinalysis, Routine (Dipstick) 1.015 1 Normal 1.002-1.03 0 [facility] Work Phone: Comment on above: How was Urine Obtain ed? [facility] [address] [place], [place], [address] Basic Metabolic Profile (BMP )Ordered By: Flask Maker on 02-04-2018 Basic metabolic 2000 panel 81 mL/min Normal [facility] Work Phone: Comment on above: GFR Calc [facility] [address] [place], [place], [phone] Basic metabolic 2000 panel 135 mmol/L Abnormal 136-145 [facility] Work Phone: Comment on above: [facility] [address] [place], [place], [phone] Basic metabolic 2000 panel 1.21 mg/dL Normal 0.70-1.30 [facility] Work Phone: Comment on above: The validity of the calculated GFR AND GFRAA in patients over70 years has not been determined. Clinical correlation isessential. [facility] [address] [place], [place], [phone] Basic metabolic 2000 panel 8 mg/dL Normal 7-18 [facility] Work Phone: Comment on above: [facility] [address] [place], [address] Basic metabolic 2000 panel 67 mL/min Normal [facility] Work Phone: Comment on above: Non- GFR Calc [facility] [address] [place], [place], [phone] Basic metabolic 2000 panel 76.06 ml/min Normal [facility] Work Phone: Comment on above: [facility] [address] [place], [place], [phone] Basic metabolic 2000 panel 6.6 {RATIO} Abnormal 10-20 [facility] Work Phone: Comment on above: [facility] [address] [place], [place], [phone] Basic metabolic 2000 panel 117 mg/dL Abnormal 74-106 [facility] Work Phone: Comment on above: Fasting Glucose resu lt from 100 to 125 mg/dLsuggests IMPAIRED HOMEOSTASIS per A.D.A. criteria.Please note revised GLUCOSE reference range [id number]/02/2018. [facility] [address] [place], [place], [phone] Basic metabolic 2000 panel 7 1 Normal 5-15 [facility] Work Phone: Comment on above: [facility] [address] [place], [place], [address] Basic metabolic 2000 panel 25.0 mmol/L Normal 21.0-32.0 [facility] Work Phone: Comment on above: [facility] [address] [place], [place], [phone] Basic metabolic 2000 panel 103 mmol/L Normal 98-107 [facility] Work Phone: Comment on above: [facility] [address] [place], [place], [address] Basic metabolic 2000 panel 3.6 mmol/L Normal 3.5-5.1 [facility] Work Phone: Comment on above: [facility] [address] [place], [place], [address] Basic metabolic 2000 panel 9.0 mg/dL Normal 8.5-10.1 [facility] Work Phone: Comment on above: [facility] [address] [place], [place], [phone] CBC W/Diff, AutomatedOrdered By: Flask Maker on 02-04-2018 Absolute Lymph 0.79 {X10_3/ul} Abnormal 0.83-4.51 Compr ehensive Internal Medicine Work Phone: Absolute Neut 3.6 {X10_3/uL} Normal 2.0-7.7 Compreh ensive Internal Medicine Work Phone: Comment on above: [facility] [address] [place], [address] Basophils/100 WBC (Bld) 0.2 % Normal 0-1 [facility] Work Phone: Comment on above: [facility] [address] [place], [address] Basophils/100 WBC Auto (Bld) 0.2 % Normal 0-1 [facility] Work Phone: Eosinophils/100 WBC (Bld) 0.0 % Normal 0-5 [facility] Work Phone: Comment on above: [facility] [address] [place], [address] Eosinophils/100 WBC Auto (Bld) 0.0 % Normal 0-5 [facility] Work Phone: Erythrocyte distribution width Auto Ratio (RBC) 13.6 % Normal 11.6-14.6 [facility] Work Phone: Erythrocyte distribution width Ratio (RBC) 13.6 % Normal 11.6-14.6 [facility] Work Phone: Comment on above: [facility] [address] [place], [address] Hematocrit Auto Volume Fraction (Bld) 37.8 % Abnormal 40-54 [facility] Work Phone: Hematocrit Volume Fraction (Bld) 37.8 % Abnormal 40-54 [facility] Work Phone: Comment on above: [facility] [address] [place], [address] Hemoglobin mass conc (Bld) 13.1 g/dL Normal 13.0-16.5 [facility] Work Phone: Comment on above: [facility] [address] [place], [place], [phone] IM GRAN % 0.000 % Normal 0.0-0.9 [facility] Work Phone: Comment on above: IG% - Immature Granu locytes (promyelocytes, myelocytes andmetamyelocytes) > 1% indicates that a LEFT SHIFT is Present. [facility] [address] [place], [place], [phone] Lymphocytes #/vol (Bld) 0.79 {X10_3/ul} Abnormal 0.83-4.51 [facility] Work Phone: Comment on above: [facility] [address] [place], [place], [phone] Lymphocytes/100 WBC (Bld) 16.5 % Abnormal 19-41 [facility] Work Phone: Comment on above: [facility] [address] [place], [place], [phone] Lymphocytes/100 WBC Auto (Bld) 16.5 % Abnormal 19-41 [facility] Work Phone: MCH Auto Entitic mass (RBC) 28.7 pg Normal 27.0-32.0 [facility] Work Phone: MCH Entitic mass (RBC) 28.7 pg Normal 27.0-32.0 [facility] Internal Medicine Work Phone: Comment on above: [facility] [address] [place], [place], [phone] MCHC Auto mass conc (RBC) 34.7 {g/gl} Normal 32-36 [facility] Work Phone: MCHC mass conc (RBC) 34.7 {g/gl} Normal 32-36 [facility] Internal Medicine Work Phone: Comment on above: [facility] [address] [place], [place], [phone] MCV Auto Entitic volume (RBC) 82.9 fL Normal 80-94 [facility] Work Phone: MCV Entitic volume (RBC) 82.9 fL Normal 80-94 [facility] Work Phone: Comment on above: [facility] [address] [place], [address] Monocytes/100 WBC Auto (Bld) 9.0 % Normal 0-10 [facility] Work Phone: Comment on above: [facility] [address] [place], [address] Neutrophils/100 WBC (Bld) 74.3 % Abnormal 47-70 [facility] Work Phone: Comment on above: [facility] [address] [place], [address] Neutrophils/100 WBC Auto (Bld) 74.3 % Abnormal 47-70 [facility] Work Phone: Platelet mean volume Auto Entitic volume (Bld) 10.1 fL Normal 6.2-12.0 [facility] Work Phone: Platelet mean volume Entitic volume (Bld) 10.1 fL Normal 6.2-12.0 Comprehensi ve Internal Medicine Work Phone: Comment on above: [facility] [address] [place], [address] Platelets #/vol (Bld) 125 10*3/uL Abnormal 150-450 Co mprehensive Internal Medicine Work Phone: Comment on above: [facility] [address] [place], [address] Platelets Auto #/vol (Bld) 125 10*3/uL Abnormal 150-450 [facility] Work Phone: RBC #/vol (Bld) 4.56 {M/mm3} Abnormal 4.6-6.2 Compreh ensive Internal Medicine Work Phone: Comment on above: [facility] [address] [place], [address] RBC Auto #/vol (Bld) 4.56 {M/mm3} Abnormal 4.6-6.2 [facility] Work Phone: RDW SD 41.3 fL Normal 35.1-43.9 [facility] Work Phone: Comment on above: [facility] [address] [place], [address] WBC #/vol (Bld) 4.8 10*3/uL Normal 4.4-11.0 Comprehe nsive Internal Medicine Work Phone: Comment on above: [facility] [address] [place], [address] WBC Auto #/vol (Bld) 4.8 10*3/uL Normal 4.4-11.0 [facility] Work Phone: CBC W/Diff, AutomatedOrdered By: Flask Maker on 02-03-2018 Absolute Lymph 0.63 {X10_3/ul} Abnormal 0.83-4.51 Compr ensive Internal Medicine Work Phone: Absolute Neut 3.9 {X10_3/uL} Normal 2.0-7.7 Compreh ensive Internal Medicine Work Phone: Comment on above: [facility] [address] [place], [address] Basophils/100 WBC (Bld) 0.0 % Normal 0-1 [facility] Work Phone: Comment on above: [facility] [address] [place], [address] Basophils/100 WBC Auto (Bld) 0.0 % Normal 0-1 [facility] Work Phone: Eosinophils/100 WBC (Bld) 0.0 % Normal 0-5 [facility] Work Phone: Comment on above: [facility] [address] [place], [address] Eosinophils/100 WBC Auto (Bld) 0.0 % Normal 0-5 [facility] Work Phone: Erythrocyte distribution width Auto Ratio (RBC) 13.5 % Normal 11.6-14.6 [facility] Work Phone: Erythrocyte distribution width Ratio (RBC) 13.5 % Normal 11.6-14.6 [facility] Work Phone: Comment on above: [facility] [address] [place], [address] Hematocrit Auto Volume Fraction (Bld) 39.8 % Abnormal 40-54 [facility] Work Phone: Hematocrit Volume Fraction (Bld) 39.8 % Abnormal 40-54 [facility] Work Phone: Comment on above: [facility] [address] [place], [address] Hemoglobin mass conc (Bld) 13.8 g/dL Normal 13.0-16.5 [facility] Work Phone: Comment on above: [facility] [address] [place], [address] IM GRAN % 0.000 % Normal 0.0-0.9 [facility] Work Phone: Comment on above: IG% - Immature Granu locytes (promyelocytes, myelocytes andmetamyelocytes) > 1% indicates that a LEFT SHIFT is Present. [facility] [address] [place], [address] Lymphocytes #/vol (Bld) 0.63 {X10_3/ul} Abnormal 0.83-4.51 [facility] Work Phone: Comment on above: [facility] [address] [place], [address] Lymphocytes/100 WBC (Bld) 13.2 % Abnormal 19-41 [facility] Work Phone: Comment on above: [facility] [address] [place], [address] Lymphocytes/100 WBC Auto (Bld) 13.2 % Abnormal 19-41 [facility] Work Phone: MCH Auto Entitic mass (RBC) 29.0 pg Normal 27.0-32.0 [facility] Work Phone: MCH Entitic mass (RBC) 29.0 pg Normal 27.0-32.[address] [facility] Internal Medicine Work Phone: Comment on above: [facility] [address] [place], [address] MCHC Auto mass conc (RBC) 34.7 {g/gl} Normal 32-36 [facility] Work Phone: MCHC mass conc (RBC) 34.7 {g/gl} Normal 32-36 [facility] Internal Medicine Work Phone: Comment on above: [facility] [address] [place], [address] MCV Auto Entitic volume (RBC) 83.6 fL Normal 80-94 [facility] Work Phone: MCV Entitic volume (RBC) 83.6 fL Normal 80-94 [facility] Work Phone: Comment on above: [facility] [address] [place], [address] Monocytes/100 WBC Auto (Bld) 5.0 % Normal 0-10 [facility] Work Phone: Comment on above: [facility] [address] [place], [address] Neutrophils/100 WBC (Bld) 81.8 % Abnormal 47-70 [facility] Work Phone: Comment on above: [facility] [address] [place], [address] Neutrophils/100 WBC Auto (Bld) 81.8 % Abnormal 47-70 [facility] Work Phone: Platelet mean volume Auto Entitic volume (Bld) 9.6 fL Normal 6.2-12.0 [facility] Work Phone: Platelet mean volume Entitic volume (Bld) 9.6 fL Normal 6.2-12.0 Comprehensi Internal Medicine Work Phone: Comment on above: [facility] [address] [place], [address] Platelets #/vol (Bld) 129 10*3/uL Abnormal 150-450 [facility] Work Phone: Comment on above: [facility] [address] [place], [address] Platelets Auto #/vol (Bld) 129 10*3/uL Abnormal 150-450 [facility] Work Phone: RBC #/vol (Bld) 4.76 {M/mm3} Normal 4.6-6.2 Compreh ensive Internal Medicine Work Phone: Comment on above: [facility] [address] [place], [address] RBC Auto #/vol (Bld) 4.76 {M/mm3} Normal 4.6-6.2 [facility] Work Phone: RDW SD 41.5 fL Normal 35.1-43.9 [facility] Internal Medicine Work Phone: Comment on above: [facility] [address] [place], [address] WBC #/vol (Bld) 4.8 10*3/uL Normal 4.4-11.0 Comprehe nsive Internal Medicine Work Phone: Comment on above: [facility] [address] [place], [address] WBC Auto #/vol (Bld) 4.8 10*3/uL Normal 4.4-11.0 [facility] prehensive Internal Medicine Work Phone: Comprehensive Metabolic Prof ilOrdered By: Flask Maker on 02-03-2018 Comprehensive metabolic 2000 panel 59 mL/min Abnormal Comprehensi ve Internal Medicine Work Phone: Comment on above: GFR Calc [facility] [address] [place], [place], [phone] Comprehensive metabolic 2000 panel 7.5 g/dL Normal 6.4-8.2 Comprehensi ve Internal Medicine Work Phone: Comment on above: [facility] [address] [place], [place], [phone] Comprehensive metabolic 2000 panel 3.7 g/dL Normal 3.2-5.0 Comprehensi ve Internal Medicine Work Phone: Comment on above: [facility] [address] [place], [place], [phone] Comprehensive metabolic 2000 panel 3.8 g/dL Normal 2.2-4.2 Comprehensi ve Internal Medicine Work Phone: Comment on above: [facility] [address] [place], [place], [phone] Comprehensive metabolic 2000 panel 1.0 {RATIO} Normal 0.9-2.4 Comprehensi ve Internal Medicine Work Phone: Comment on above: [facility] [address] [place], [place], [phone] Comprehensive metabolic 2000 panel 8.6 mg/dL Normal 8.5-10.1 Comprehensi ve Internal Medicine Work Phone: Comment on above: [facility] [address] [place], [place], [phone] Comprehensive metabolic 2000 panel 33 U/L Normal 15-37 Comprehensi ve Internal Medicine Work Phone: Comment on above: [facility] [address] [place], [address] Comprehensive metabolic 2000 panel 71 U/L Normal 45-117 Comprehensi ve Internal Medicine Work Phone: Comment on above: [facility] [address] [place], [address] Comprehensive metabolic 2000 panel 40 U/L Normal 16-61 Comprehensi ve Internal Medicine Work Phone: Comment on above: [facility] [address] [place], [address] Comprehensive metabolic 2000 panel 0.70 mg/dL Normal 0.20-1.00 Comprehensi ve Internal Medicine Work Phone: Comment on above: [facility] [address] [place], [place], [address] Comprehensive metabolic 2000 panel 135 mmol/L Abnormal 136-145 Comprehensi ve Internal Medicine Work Phone: Comment on above: [facility] [address] [place], [place], [address] Comprehensive metabolic 2000 panel 3.7 mmol/L Normal 3.5-5.1 Comprehensi ve Internal Medicine Work Phone: Comment on above: [facility] [address] [place], [place], [address] Comprehensive metabolic 2000 panel 12 1 Normal 5-15 Comprehensi ve Internal Medicine Work Phone: Comment on above: [facility] [address] [place], [address] Comprehensive metabolic 2000 panel 49 mL/min Abnormal Comprehensi ve Internal Medicine Work Phone: Comment on above: Non- GFR Calc [facility] [address] [place], [place], [phone] Comprehensive metabolic 2000 panel 173 mg/dL Abnormal 74-106 Comprehensi ve Internal Medicine Work Phone: Comment on above: Fasting Glucose resu lt greater than or equal to 126 mg/dLsuggests DIABETES MELLITUS per A.D.A. criteria.Please note revised GLUCOSE reference range /02/2018. [facility] [address] [place], [place], [phone] Comprehensive metabolic 2000 panel 1.59 mg/dL Abnormal 0.70-1.30 Comprehensi ve Internal Medicine Work Phone: Comment on above: The validity of the calculated GFR AND GFRAA in patients over70 years has not been determined. Clinical correlation isessential. [facility] [address] [place], [place], [address] Comprehensive metabolic 2000 panel 11 mg/dL Normal 7-18 Comprehensi ve Internal Medicine Work Phone: Comment on above: [facility] [address] [place], [place], [address] Comprehensive metabolic 2000 panel 101 mmol/L Normal 98-107 Comprehensi ve Internal Medicine Work Phone: Comment on above: [facility] [address] [place], [place], [address] Comprehensive metabolic 2000 panel 22.0 mmol/L Normal 21.0-32.0 Comprehensi ve Internal Medicine Work Phone: Comment on above: [facility] [address] [place], [place], [phone] Comprehensive metabolic 2000 panel 6.9 {RATIO} Abnormal 10-20 Comprehensi ve Internal Medicine Work Phone: Comment on above: [facility] [address] [place], [place], [phone] Culture, Blood (WB)Ordered B y: Flask Maker on 02-03-2018 Bacteria identified Cx Nom (Bld) See Note Normal [facility] Work Phone: Comment on above: BCNo growth in 5 day s. [facility] [address] [place], [place], [address] Influenza A+B (Rapid GEOVANNA)Ord ered By: Flask Maker on 02-03-2018 FLU See Note Normal [facility] Work Phone: Comment on above: FLU A/B Rapid Nega tive test results should be confirmed by culture. Order Rapid Viral Culture for Influenzae A+B ([id number]) if clinically indicated. Influenza Ag, Direct Presumptive NEGATIVE for Influenza A/B Antigen (See Note) Influenza A+B (Rapid GEOVANNA) See Note Normal [facility] Work Phone: Comment on above: FLU A/B Rapid Nega tive test results should be confirmed by culture. Order Rapid Viral Culture for Influenzae A+B ([id number]) if clinically indicated. Influenza Ag, Direct Presumptive NEGATIVE for Influenza A/B Antigen (See Note) [facility] [address] [place], [address] CBC, EmployeeOrdered By: Cuate tem Rice Farmer on 11-13-2017 Absolute Lymph 1.79 {X10_3/ul} Normal 0.83-4.51 Compr ehensive Internal Medicine Work Phone: Absolute Neut 3.3 {X10_3/uL} Normal 2.0-7.7 Compreh ensive Internal Medicine Work Phone: Basophils/100 WBC (Bld) 0.2 % Normal 0-1 [facility] Work Phone: Comment on above: [facility] [address] [place], [address] Basophils/100 WBC Auto (Bld) 0.2 % Normal 0-1 [facility] Work Phone: Eosinophils/100 WBC (Bld) 3.1 % Normal 0-5 [facility] Work Phone: Comment on above: [facility] [address] [place], [address] Eosinophils/100 WBC Auto (Bld) 3.1 % Normal 0-5 [facility] Work Phone: Erythrocyte distribution width Auto Ratio (RBC) 14.0 % Normal 11.6-14.6 [facility] Work Phone: Erythrocyte distribution width Ratio (RBC) 14.0 % Normal 11.6-14.6 [facility] Work Phone: Comment on above: [facility] [address] [place], [place], [phone] Hematocrit Auto Volume Fraction (Bld) 42.8 % Normal 40-54 [facility] Work Phone: Hematocrit Volume Fraction (Bld) 42.8 % Normal 40-54 [facility] Work Phone: Comment on above: [facility] [address] [place], [address] Hemoglobin mass conc (Bld) 14.4 g/dL Normal 13.0-16.5 [facility] Work Phone: Comment on above: [facility] [address] [place], [address] Lymphocytes/100 WBC (Bld) 32.2 % Normal 19-41 [facility] Work Phone: Comment on above: [facility] [address] [place], [address] Lymphocytes/100 WBC Auto (Bld) 32.2 % Normal 19-41 [facility] Work Phone: MCH Auto Entitic mass (RBC) 28.8 pg Normal 27.0-32.0 [facility] Work Phone: MCH Entitic mass (RBC) 28.8 pg Normal 27.0-32.0 [facility] Internal Medicine Work Phone: Comment on above: [facility] [address] [place], [address] MCHC Auto mass conc (RBC) 33.6 {g/gl} Normal 32-36 [facility] Medicine Work Phone: MCHC mass conc (RBC) 33.6 {g/gl} Normal 32-36 Com prehensive Internal Medicine Work Phone: Comment on above: [facility] [address] [place], [address] MCV Auto Entitic volume (RBC) 85.6 fL Normal 80-94 [facility] Work Phone: MCV Entitic volume (RBC) 85.6 fL Normal 80-94 [facility] Work Phone: Comment on above: [facility] [address] [place], [address] Monocytes/100 WBC Auto (Bld) 5.2 % Normal 0-10 [facility] Work Phone: Comment on above: [facility] [address] [place], [address] Neutrophils/100 WBC (Bld) 59.1 % Normal 47-70 [facility] Work Phone: Comment on above: [facility] [address] [place], [address] Neutrophils/100 WBC Auto (Bld) 59.1 % Normal 47-70 [facility] Work Phone: Platelet mean volume Auto Entitic volume (Bld) 10.0 fL Normal 6.2-12.0 [facility] Work Phone: Platelet mean volume Entitic volume (Bld) 10.0 fL Normal 6.2-12.0 Comprehensi Internal Medicine Work Phone: Comment on above: [facility] [address] [place], [address] Platelets #/vol (Bld) 165 10*3/uL Normal 150-[address] [facility] Internal Medicine Work Phone: Comment on above: [facility] [address] [place], [address] Platelets Auto #/vol (Bld) 165 10*3/uL Normal 150-450 [facility] Medicine Work Phone: RBC #/vol (Bld) 5.00 {M/mm3} Normal 4.6-6.2 Compreh ensive Internal Medicine Work Phone: Comment on above: [facility] [address] [place], [place], [phone] RBC Auto #/vol (Bld) 5.00 {M/mm3} Normal 4.6-6.2 Co mprehensive Internal Medicine Work Phone: RDW SD 43.3 fL Normal 35.1-43.9 [facility] Work Phone: WBC #/vol (Bld) 5.6 10*3/uL Normal 4.4-11.0 Comprehe nsive Internal Medicine Work Phone: Comment on above: [facility] [address] [place], [address] WBC Auto #/vol (Bld) 5.6 10*3/uL Normal 4.4-11.0 Com prehensive Internal Medicine Work Phone: CBC, Employee 43.3 fL Normal 35.1-43.9 Comprehensi ve Internal Medicine Work Phone: Comment on above: [facility] [address] [place], [place], [address] CBC, Employee 3.3 {X10_3/uL} Normal 2.0-7.7 Compreh ensive Internal Medicine Work Phone: Comment on above: [facility] [address] [place], [address] CBC, Employee 1.79 {X10_3/ul} Normal 0.83-4.51 Compre hensive Internal Medicine Work Phone: Comment on above: [facility] [address] [place], [address] Employee ProfileOrdered By: Flask Maker on 11-13-2017 A/G 1.0 {RATIO} Normal 0.9-2.4 [facility] Work Phone: Albumin mass conc 3.7 g/dL Normal 3.2-5.0 Compreh ensive Internal Medicine Work Phone: Comment on above: [facility] [address] [place], [place], [phone] Albumin/Globulin mass ratio 1.0 {RATIO} Normal 0.9-2.4 [facility] Work Phone: Comment on above: [facility] [address] [place], [place], [address] ALP enzyme act/vol 82 U/L Normal 45-117 Compre hensive Internal Medicine Work Phone: ALT enzyme act/vol 46 U/L Normal 16-61 Compre hensive Internal Medicine Work Phone: Comment on above: Please note revised ALT reference range [id number]/28/2018. [facility] [address] [place], [address] AST enzyme act/vol 24 U/L Normal 15-37 Compre formerly [facility] Internal [facility] Work Phone: Comment on above: [facility] [address] [place], [place], [phone] Bilirubin mass conc 0.60 mg/dL Normal 0.20-1.00 Compr ehensive Internal Medicine Work Phone: Comment on above: [facility] [address] [place], [address] Bilirubin.direct mass conc 0.10 mg/dL Normal 0.00-0.30 [facility] Medicine Work Phone: Comment on above: [facility] [address] [place], [address] BUN/CRE 9.6 {RATIO} Abnormal 10-20 [facility] Medicine Work Phone: Calcium mass conc 8.3 mg/dL Abnormal 8.5-10.1 Compreh ensive Internal Medicine Work Phone: Comment on above: [facility] [address] [place], [place], [phone] Chloride molar conc 108 mmol/L Abnormal 98-107 Compr ehensive Internal Medicine Work Phone: Comment on above: [facility] [address] [place], [place], [address] CHOL:HDL 5.80 1 Normal [facility] Work Phone: Cholesterol in HDL mass conc 28 mg/dL Abnormal [facility] Work Phone: Comment on above: The drugs N-Acetylcy steine and Metamizole may falselydepress this assay. Reference Range HDL <40 mg/dL Low HDL Cholesterol HDL >or= 60 mg/dL High HDL Cholesterol [facility] [address] [place], [place], [address] Cholesterol in LDL mass conc 58 mg/dL Normal 0-130 [facility] Work Phone: Cholesterol in LDL mass conc 58 mg/dL Normal 0-130 [facility] Work Phone: Comment on above: [facility] [address] [place], [place], [address] Cholesterol in VLDL mass conc 77 mg/dL Abnormal 5-40 [facility] Work Phone: Cholesterol mass conc 163 mg/dL Normal Com prehensive Internal Medicine Work Phone: Comment on above: <200 mg/dL Desirable 200-240 mg/dL Borderline >240 mg/dL High Risk [facility] [address] [place], [address] CO2 molar conc 28.0 mmol/L Normal 21.0-32.0 Comprehen [facility] Internal [facility] Work Phone: Comment on above: [facility] [address] [place], [place], [phone] Creatinine mass conc 1.14 mg/dL Normal 0.70-1.30 Comp rehensive Internal Medicine Work Phone: Comment on above: The validity of the calculated GFR AND GFRAA in patients over70 years has not been determined. Clinical correlation isessential. [facility] [address] [place], [place], [address] EST GFR - AA 87 mL/min Normal Comprehensiv e Internal Medicine Work Phone: Comment on above: GFR Calc GAP 6 1 Normal 5-15 [facility] Work Phone: GFR/1.73 sq M predicted among non-blacks MDRD vol rate/area (S/P/Bld) 72 mL/min/{1.73_m2} Normal Comprehe nsive Internal Medicine Work Phone: Comment on above: Non- GFR Calc [facility] [address] [place], [place], [address] Globulin Calculated mass conc (S) 3.7 g/dL Normal 2.2-4.2 [facility] Work Phone: Glucose mass conc 113 mg/dL Abnormal 74-106 Compreh ensive Internal Medicine Work Phone: Comment on above: Fasting Glucose resu lt from 100 to 125 mg/dLsuggests IMPAIRED HOMEOSTASIS per A.D.A. criteria.Please note revised GLUCOSE reference range [id number]/02/2018. [facility] [address] [place], [place], [address] LDH 201 U/L Normal 87-241 [facility] Medicine Work Phone: Phosphate mass conc 2.4 mg/dL Abnormal 2.5-4.9 Compr ehensive Internal Medicine Work Phone: Potassium molar conc 3.7 mmol/L Normal 3.5-5.1 Comp rehensive Internal Medicine Work Phone: Comment on above: [facility] [address] [place], [place], [address] Protein mass conc 7.4 g/dL Normal 6.4-8.2 Compreh ensive Internal Medicine Work Phone: Comment on above: [facility] [address] [place], [place], [address] Sodium molar conc 142 mmol/L Normal 136-145 Compreh ensive Internal Medicine Work Phone: Comment on above: [facility] [address] [place], [place], [address] Triglyceride mass conc 383 mg/dL Abnormal Co mprehensive Internal Medicine Work Phone: Comment on above: The drugs N-Acetylcy steine and Metamizole may falselydepress this assay.Serum Triglycerides Reference Interval Normal <150 mg/dL Borderline high 150 - 199 mg/dL High 200 - 499 mg/dL Very High > or = 500 mg/dL [place] [address] [place], [place], [address] Urea nitrogen mass conc 11 mg/dL Normal 7-18 [facility] Internal Medicine Work Phone: Comment on above: [facility] [address] [place], [place], [address] URIC 8.7 mg/dL Abnormal 3.5-7.2 [facility] Medicine Work Phone: Comment on above: The drugs N-Acetylcy steine and Metamizole may falselydepress this assay. Employee Profile 9.6 {RATIO} Abnormal 10-20 Compreh ensive Internal Medicine Work Phone: Comment on above: [place] [address] [place], [place], [address] Employee Profile 5.80 1 Normal Comprehe nsive Internal Medicine Work Phone: Comment on above: [facility] [address] [place], [place], [address] Employee Profile 6 1 Normal 5-15 Comprehe nsive Internal Medicine Work Phone: Comment on above: [place] [address] [place], [address] Employee Profile 87 mL/min Normal Comprehe nsive Internal Medicine Work Phone: Comment on above: GFR Calc [facility] [address] [place], [place], [address] Employee Profile 77 mg/dL Abnormal 5-40 Comprehe nsive Internal Medicine Work Phone: Comment on above: [facility] [address] [place], [place], [address] Employee Profile 8.7 mg/dL Abnormal 3.5-7.2 Comprehe nsive Internal Medicine Work Phone: Comment on above: The drugs N-Acetylcy steine and Metamizole may falselydepress this assay. [facility] [address] [place], [place], [address] Employee Profile 2.4 mg/dL Abnormal 2.5-4.9 Comprehe nsive Internal Medicine Work Phone: Comment on above: [facility] [address] [place], [place], [address] Employee Profile 3.7 g/dL Normal 2.2-4.2 Comprehe nsive Internal Medicine Work Phone: Comment on above: [facility] [address] [place], [place], [address] Employee Profile 201 U/L Normal 87-241 Comprehe nsive Internal Medicine Work Phone: Comment on above: [facility] [place], [place], [address] Employee Profile 82 U/L Normal 45-117 Comprehe nsive Internal Medicine Work Phone: Comment on above: [facility] [address] [place], [place], [address] Nicotine Urine Drug ScreenOr dered By: Flask Maker on 11-13-2017 COT DRG SCREEN Positive Normal Comprehens pauline Internal Medicine Work Phone: Comment on above: Cotinine is the firs t-stage metabolite of Nicotine. TO BE CONFIRMED Normal Comprehen sive Internal Medicine Work Phone: Comment on above: CONFIRMATORY TESTING FOR ALL POSITIVE URINE DRUG SCREENRESULTS WILL ONLY BE SENT OUT UPON PHYSICIAN ORDER.The results of Urine Drug Screen methods provide onlypreliminary analytical test results. A more specificalternate chemical method must be used in order to obtain aconfirmed analytical result. Gas chromatography/massspectrometery (GC/MS) is the preferred confirmatory method.Clinical consideration and professional judgement should beapplied to any drug of abuse test result, particularly whenpreliminary positive results are used. Nicotine Urine Drug Screen Normal [facility] Work Phone: Comment on above: CONFIRMATORY TESTING FOR ALL POSITIVE URINE DRUG SCREENRESULTS WILL ONLY BE SENT OUT UPON PHYSICIAN ORDER.The results of Urine Drug Screen methods provide onlypreliminary analytical test results. A more specificalternate chemical method must be used in order to obtain aconfirmed analytical result. Gas chromatography/massspectrometery (GC/MS) is the preferred confirmatory method.Clinical consideration and professional judgement should beapplied to any drug of abuse test result, particularly whenpreliminary positive results are used. [facility] [address] [place], [place], [address] Nicotine Urine Drug Screen Positive Normal [facility] Work Phone: Comment on above: Cotinine is the firs t-stage metabolite of Nicotine. [facility] [address] [place], [place], [address] Urinalysis, EmployeeOrdered By: Flask Maker on 11-13-2017 CLARITY Clear Normal [facility] Internal Medicine Work Phone: Clarity Nom (U) Clear Normal Comprehen [facility] Internal Medicine Work Phone: Comment on above: [facility] [address] [place], [place], [address] COLOR Yellow Normal [facility] Work Phone: Color Nom (U) Yellow Normal Comprehensi ve Internal Medicine Work Phone: Comment on above: [facility] [address] [place], [place], [address] GLUCOSE, UR Normal Normal [facility] Work Phone: KETONE UR Negative Normal [facility] Work Phone: pH UR 6.0 1 Normal 5.0 - 8.0 [facility] Work Phone: SP.GR. DIPSTX 1.015 1 Normal 1.002-1.03 0 [facility] Work Phone: Urinalysis, Employee 6.0 1 Normal 5.0 - 8.0 Comp rehensive Internal Medicine Work Phone: Comment on above: [facility] [address] [place], [place], [phone] Urinalysis, Employee 1.015 1 Normal 1.002-1 .03 0 [facility] Work Phone: Comment on above: [facility] [address] [place], [place], [phone] Urinalysis, Employee Negative Normal Comp rehensive Internal Medicine Work Phone: Comment on above: [facility] [address] [place], [place], [phone] Urinalysis, Employee Normal Normal Comp rehensive Internal Medicine Work Phone: Comment on above: [facility] [address] [place], [place], [address] COLON BIOPSY (CHOOSE SITE)Or dered By: Flask Maker on 02-12-2017 COLON BIOPSY (CHOOSE SITE) See Note Normal [facility] Work Phone: Comment on above: Patient: SHERMAN CORONEL : 1965 (51/M) Acct Num: [id number] Phys: Colette MORRISON,Dino Unit Num: [id number] Loc: EN Specimen: [id number] Received: 02/12/17 - 1019 Spec Type: COLON BX TISSUES TISSUES: GROSS DESCRIPTION A - Received in fixative is one container labeled with the patient's name and designated cecal polyp. The specimen consists of two pieces of queen-pink polypthat in aggregate measure 1 x 0.5 x 0.3 cm. The specimen is totally submitted in one cassette. B - Received in fixative is one container labeled with the patient's name and designated polyp at 50 cm descending colon. The specimen consists of a pink-red polyp measuring 3 x 2 x 2 cm. The apparent base is inked. The specimen is serially sectioned and submitted entirely in four cassettes. C - Received in fixative is one container labeled with the patient's name and designated sigmoid colon polyp. The specimen consists of two irregular fragments of light queen soft tissue that in aggregate measure 0.3 x 0.2 x 0.1 cm. The specimen is totally submitted in one cassette. / DIONY:dakota 02/12/17 TC:1 CPT: 12810 x3 HEADER OPERATION: Colonoscopy PRE-OP DIAGNOSIS: Screening TISSUE SUBMITTED: A - Cecal polyp, B - Polyp at 50 cm descending colon, C - Sigmoid colon polyp MICROSCOPIC DESCRIPTION Slides are reviewed. MICROSCOPIC DIAGNOSIS A. Cecal polyp, biopsy: Fragments of tubular adenoma. B. Polyp at 50 cm, polypectomy: Villous adenoma. C. Sigmoid colon polyp, biopsy: Hyperplastic polyp. Fragment of fecal material. SJ:dakota 02/13/17 Signed Mohsen Chawla 02/13/17 [facility] [address] [place], [place], [phone] CBC, EmployeeOrdered By: Cuate tem Rice Farmer on 02-11-2017 Absolute Lymph 1.80 {X10_3/ul} Normal 0.83-4.51 Compr ehensive Internal Medicine Work Phone: Absolute Neut 4.9 {X10_3/uL} Normal 2.0-7.7 Compreh ensive Internal Medicine Work Phone: Basophils/100 WBC (Bld) 0.3 % Normal 0-1 [facility] Work Phone: Comment on above: [facility] [address] [place], [address] Basophils/100 WBC Auto (Bld) 0.3 % Normal 0-1 [facility] Work Phone: Eosinophils/100 WBC (Bld) 1.5 % Normal 0-5 [facility] Work Phone: Comment on above: [facility] [address] [place], [address] Eosinophils/100 WBC Auto (Bld) 1.5 % Normal 0-5 [facility] Work Phone: Erythrocyte distribution width Auto Ratio (RBC) 14.1 % Normal 11.6-14.6 [facility] Work Phone: Erythrocyte distribution width Ratio (RBC) 14.1 % Normal 11.6-14.6 [facility] Work Phone: Comment on above: [facility] [address] [place], [address] Hematocrit Auto Volume Fraction (Bld) 44.6 % Normal 40-54 [facility] Work Phone: Hematocrit Volume Fraction (Bld) 44.6 % Normal 40-54 [facility] Work Phone: Comment on above: [facility] [address] [place] [place], [address] Hemoglobin mass conc (Bld) 14.9 g/dL Normal 13.0-16.5 [facility] Work Phone: Comment on above: [facility] [address] [place], [address] Lymphocytes/100 WBC (Bld) 24.8 % Normal 19-41 [facility] Work Phone: Comment on above: [facility] [address] [place], [address] Lymphocytes/100 WBC Auto (Bld) 24.8 % Normal 19-41 [facility] Work Phone: MCH Auto Entitic mass (RBC) 28.9 pg Normal 27.0-32.0 [facility] Work Phone: MCH Entitic mass (RBC) 28.9 pg Normal 27.0-32.0 [facility] Work Phone: Comment on above: [facility] [address] [place], [place], [phone] MCHC Auto mass conc (RBC) 33.4 {g/gl} Normal 32-36 [facility] Work Phone: MCHC mass conc (RBC) 33.4 {g/gl} Normal 32-36 [facility] prehensive Internal Medicine Work Phone: Comment on above: [facility] [address], [place], [phone] MCV Auto Entitic volume (RBC) 86.4 fL Normal 80-94 [facility] Work Phone: MCV Entitic volume (RBC) 86.4 fL Normal 80-94 [facility] Work Phone: Comment on above: [facility] [address] [place], [address] Monocytes/100 WBC Auto (Bld) 5.9 % Normal 0-10 [facility] Work Phone: Comment on above: [facility] [address] [place], [address] Neutrophils/100 WBC (Bld) 67.4 % Normal 47-70 [facility] Work Phone: Comment on above: [facility] [address] [place], [address] Neutrophils/100 WBC Auto (Bld) 67.4 % Normal 47-70 [facility] Work Phone: Platelet mean volume Auto Entitic volume (Bld) 9.7 fL Normal 6.2-12.0 [facility] Work Phone: Platelet mean volume Entitic volume (Bld) 9.7 fL Normal 6.2-12.0 Comprehensi ve Internal Medicine Work Phone: Comment on above: [facility] [address] [place], [address] Platelets #/vol (Bld) 200 10*3/uL Normal 150-450 Co mprehensive [facility] Medicine Work Phone: Comment on above: [facility] [address] [place], [address] Platelets Auto #/vol (Bld) 200 10*3/uL Normal 150-450 [facility] Work Phone: RBC #/vol (Bld) 5.16 {M/mm3} Normal 4.6-6.2 Compreh ensive Internal Medicine Work Phone: Comment on above: [facility] [address] [place], [address] RBC Auto #/vol (Bld) 5.16 {M/mm3} Normal 4.6-6.2 Co mprehensive [facility] Work Phone: RDW SD 44.1 fL Abnormal 35.1-43.9 [facility] Work Phone: WBC #/vol (Bld) 7.3 10*3/uL Normal 4.4-11.0 Comprehe nsive Internal Medicine Work Phone: Comment on above: [facility] [address] [place], [address] WBC Auto #/vol (Bld) 7.3 10*3/uL Normal 4.4-11.0 Com prehensive Internal Medicine Work Phone: CBC, Employee 44.1 fL Abnormal 35.1-43.9 Comprehensi ve Internal Medicine Work Phone: Comment on above: [facility] [address] [place], [address] CBC, Employee 4.9 {X10_3/uL} Normal 2.0-7.7 Compreh ensive Internal Medicine Work Phone: Comment on above: [facility] [address], [place], [phone] CBC, Employee 1.80 {X10_3/ul} Normal 0.83-4.51 Compre [facility] Internal Medicine Work Phone: Comment on above: [place] [address] [place], [place], [phone] Employee ProfileOrdered By: Flask Maker on 02-11-2017 A/G 1.2 {RATIO} Normal 0.9-2.4 [facility] Work Phone: Albumin mass conc 4.2 g/dL Normal 3.4-5.0 Compreh ensive Internal Medicine Work Phone: Comment on above: [place] [address] [place], [place], [phone] Albumin/Globulin mass ratio 1.2 {RATIO} Normal 0.9-2.4 [facility] Work Phone: Comment on above: [facility] [address], [place], [phone] ALP enzyme act/vol 67 U/L Normal 45-117 [facility] Work Phone: ALT enzyme act/vol 51 U/L Normal 12-78 Compre [facility] Work Phone: Comment on above: [facility] [address] [place], [address] AST enzyme act/vol 24 U/L Normal 15-37 Compre [facility] Internal Medicine Work Phone: Comment on above: [facility] [address], [place], [phone] Bilirubin mass conc 0.60 mg/dL Normal 0.20-1.00 Compr ensive Internal Medicine Work Phone: Comment on above: [facility] [address] [place], [place], [phone] Bilirubin.direct mass conc 0.16 mg/dL Normal 0.00-0.30 [facility] Work Phone: Comment on above: [facility] [address], [place], [phone] BUN/CRE 9.9 {RATIO} Abnormal 10-20 [facility] Work Phone: Calcium mass conc 9.0 mg/dL Normal 8.5-10.1 Compreh ensive Internal Medicine Work Phone: Comment on above: [place] [address] [place], [place], [phone] Chloride molar conc 109 mmol/L Abnormal 98-107 Compr ehensive Internal Medicine Work Phone: Comment on above: [place] [address] [place], [place], [phone] CHOL:HDL 4.50 1 Normal [facility] Work Phone: Cholesterol in HDL mass conc 38 mg/dL Abnormal [facility] Work Phone: Comment on above: The drugs N-Acetylcy steine and Metamizole may falsely deressthis assay. Reference Range HDL <40 mg/dL Low HDL Cholesterol HDL >or= 60 mg/dL High HDL Cholesterol [facility] [address] [place], [place], [phone] Cholesterol in LDL mass conc 92 mg/dL Normal 0-130 [facility] Work Phone: Cholesterol in LDL mass conc 92 mg/dL Normal 0-130 [facility] Work Phone: Comment on above: [facility] [address] [place], [place], [phone] Cholesterol in VLDL mass conc 40 mg/dL Normal 5-40 [facility] Work Phone: Cholesterol mass conc 170 mg/dL Normal Com prehensive Internal Medicine Work Phone: Comment on above: <200 mg/dL Desirable 200-240 mg/dL Borderline >240 mg/dL High Risk [facility] [address], [place], [phone] CO2 molar conc 25.0 mmol/L Normal 21.0-32.0 Comprehen sive Internal Medicine Work Phone: Comment on above: [facility] [address] [place], [address] Creatinine mass conc 1.21 mg/dL Normal 0.70-1.30 Comp rehensive Internal Medicine Work Phone: Comment on above: The validity of the calculated GFR AND GFRAA in patients over70 years has not been determined. Clinical correlation isessential. [facility] [address], [place], [phone] EST GFR - AA 81 mL/min Normal Comprehensiv e Internal Medicine Work Phone: Comment on above: GFR Calc GAP 8 1 Normal 5-15 [facility] Work Phone: GFR/1.73 sq M predicted among non-blacks MDRD vol rate/area (S/P/Bld) 67 mL/min/{1.73_m2} Normal Comprehe nsive Internal Medicine Work Phone: Comment on above: Non- GFR Calc [facility] [address] [place], [place], [phone] Globulin Calculated mass conc (S) 3.5 g/dL Normal 2.3-3.5 [facility] Work Phone: Globulin mass conc (S) 3.5 g/dL Normal 2.3-3.5 Co mprehensive Internal Medicine Work Phone: Comment on above: [facility] [address] [place], [place], [address] Glucose mass conc 107 mg/dL Normal 70-110 Compreh ensive Internal Medicine Work Phone: Comment on above: [facility] [address], [place], [phone](029) LDH 174 U/L Normal 87-241 [facility] Work Phone: Phosphate mass conc 2.2 mg/dL Abnormal 2.5-4.9 Compr ensive Internal Medicine Work Phone: Potassium molar conc 3.4 mmol/L Abnormal 3.5-5.1 Comp [facility] Work Phone: Comment on above: [facility] [address] [place], [place], [phone]) Protein mass conc 7.7 g/dL Normal 6.4-8.2 Compreh ensive Internal Medicine Work Phone: Comment on above: [facility] [address], [place], [phone] Sodium molar conc 142 mmol/L Normal 136-145 Compreh ensive Internal Medicine Work Phone: Comment on above: [facility] [address], [place], [phone]) Triglyceride mass conc 202 mg/dL Abnormal Co [facility] Internal Medicine Work Phone: Comment on above: The drugs N-Acetylcy steine and Metamizole may falsely deressthis assay.Serum Triglycerides Reference Interval Normal <150 mg/dL Borderline high 150 - 199 mg/dL High 200 - 499 mg/dL Very High > or = 500 mg/dL [facility] [address] [place], [address] Urea nitrogen mass conc 12 mg/dL Normal 7-18 [facility] Work Phone: Comment on above: [facility] [address], [place], [phone]) URIC 5.3 mg/dL Normal 3.5-7.2 [facility] Work Phone: Comment on above: The drugs N-Acetylcy steine and Metamizole may falsely deressthis assay. Employee Profile 81 mL/min Normal Comprehe nsive Internal Medicine Work Phone: Comment on above: GFR Calc [facility] [address] [place], [address] Employee Profile 9.9 {RATIO} Abnormal 10-20 Compreh ensive Internal Medicine Work Phone: Comment on above: [facility] [address] [place], [address] Employee Profile 5.3 mg/dL Normal 3.5-7.2 Comprehe nsive Internal Medicine Work Phone: Comment on above: The drugs N-Acetylcy steine and Metamizole may falsely deressthis assay. [facility] [address], [place], [phone] Employee Profile 2.2 mg/dL Abnormal 2.5-4.9 Comprehe nsive Internal Medicine Work Phone: Comment on above: [facility] [address] [place], [place], [phone] Employee Profile 67 U/L Normal 45-117 Comprehe nsive Internal Medicine Work Phone: Comment on above: [facility] [address] [place], [address] Employee Profile 8 1 Normal 5-15 Comprehe nsive Internal Medicine Work Phone: Comment on above: [facility] [address] [place], [address] Employee Profile 4.50 1 Normal Comprehe nsive Internal Medicine Work Phone: Comment on above: [facility] [address] [place], [address] Employee Profile 40 mg/dL Normal 5-40 Comprehe nsive Internal Medicine Work Phone: Comment on above: [place] [facility] [address] [place], [address] Employee Profile 174 U/L Normal 87-241 Comprehe nsive Internal Medicine Work Phone: Comment on above: [facility] [address] [place], [phone] Nicotine Urine Drug ScreenOr dered By: Flask Maker on 02-11-2017 COT DRG SCREEN Positive Normal Comprehens pauline Internal Medicine Work Phone: Comment on above: Cotinine is the firs t-stage metabolite of Nicotine. TO BE CONFIRMED Normal Comprehen sive Internal Medicine Work Phone: Comment on above: CONFIRMATORY TESTING FOR ALL POSITIVE URINE DRUG SCREENRESULTS WILL ONLY BE SENT OUT UPON PHYSICIAN ORDER.The results of Urine Drug Screen methods provide onlypreliminary analytical test results. A more specificalternate chemical method must be used in order to obtain aconfirmed analytical result. Gas chromatography/massspectrometery (GC/MS) is the preferred confirmatory method.Clinical consideration and professional judgement should beapplied to any drug of abuse test result, particularly whenpreliminary positive results are used. Nicotine Urine Drug Screen Normal [facility] Work Phone: Comment on above: CONFIRMATORY TESTING FOR ALL POSITIVE URINE DRUG SCREENRESULTS WILL ONLY BE SENT OUT UPON PHYSICIAN ORDER.The results of Urine Drug Screen methods provide onlypreliminary analytical test results. A more specificalternate chemical method must be used in order to obtain aconfirmed analytical result. Gas chromatography/massspectrometery (GC/MS) is the preferred confirmatory method.Clinical consideration and professional judgement should beapplied to any drug of abuse test result, particularly whenpreliminary positive results are used. [facility] [address] [place], [phone] Nicotine Urine Drug Screen Positive Normal [facility] Internal Medicine Work Phone: Comment on above: Cotinine is the firs t-stage metabolite of Nicotine. [facility] [address] [place], [phone] Urinalysis, EmployeeOrdered By: Flask Maker on 02-11-2017 CLARITY Clear Normal [facility] Work Phone: Clarity Nom (U) Clear Normal Comprehen sive Internal Medicine Work Phone: Comment on above: [facility] [address] [place], [place], [phone] COLOR Yellow Normal [facility] Work Phone: Color Nom (U) Yellow Normal Comprehensi ve Internal Medicine Work Phone: Comment on above: [facility] [address], [place], [address] KETONE UR 5 mg/dL Abnormal [facility] Work Phone: pH UR 5.0 1 Normal 5.0 - 8.0 [facility] Work Phone: PROT DIPSTX Negative Normal [facility] Work Phone: SP.GR. DIPSTX 1.020 1 Normal 1.002-1.03 0 [facility] Work Phone: UROBILI Normal Normal [facility] Work Phone: Urinalysis, Employee 5 mg/dL Abnormal Comp rehensive Internal Medicine Work Phone: Comment on above: [facility] [address] [place], [address] Urinalysis, Employee Negative Normal Comp rehensive Internal Medicine Work Phone: Comment on above: [facility] [address] [place], [address] Urinalysis, Employee Normal Normal Comp rehensive Internal Medicine Work Phone: Comment on above: [facility] [address] [place], [address] Urinalysis, Employee 5.0 1 Normal 5.0 - 8.0 Comp rehensive Internal Medicine Work Phone: Comment on above: [facility] [address] [place], [place], [address] Urinalysis, Employee 1.020 1 Normal 1.002-1 .03 0 [facility] Work Phone: Comment on above: [facility] [address] [place], [phone] Office Visit: Colonoscopy sc reenon 12-25-2016 Documentation of current medications (procedure) Done Invalid Interpretation Code [facility] Work Phone: Fall risk assessment No Invalid Interpretation Code [facility] Work Phone: PSA,Total - Annual ScreenOrd ered By: Flask Maker on 11-02-2016 Prostate specific Ag mass conc 1.22 ng/mL Normal 0.00-4.00 [facility] Work Phone: Comment on above: This test was perfor med using the TPSA assay method for [employer] chemistry system. Values obtained with differentassay methods cannot be used interchangably.When changing PSA assays in the course of monitoring apatient, additional sequential testing should be carriedout to confirm baseline values. [facility] [address] [place], [address] Vitamin D,25 HydroxyOrdered By: Flask Maker on 11-02-2016 Vitamin D 25-OH 11.3 ng/mL Normal Comprehen [facility] Internal Medicine Work Phone: Comment on above: Vitamin D 25(OH) Sta tus Range Deficiency <20 ng/mL (50nmol/L) Insuffciency 20 - 30 ng/mL (50 - 75 nmol/L) Sufficiency 30 - 100 ng/mL (75 - 250 nmol/L) Toxicity >100 ng/mL (>250 nmol/L) Vitamin D,25 Hydroxy 11.3 ng/mL Normal Comp rehensive Internal Medicine Work Phone: Comment on above: Vitamin D 25(OH) Sta tus Range Deficiency <20 ng/mL (50nmol/L) Insuffciency 20 - 30 ng/mL (50 - 75 nmol/L) Sufficiency 30 - 100 ng/mL (75 - 250 nmol/L) Toxicity >100 ng/mL (>250 nmol/L) [facility] [address] [place], [place], [address] Free H4Kozitnt By: Ramiro avalos on 10-31-2016 T3 free mass conc 3.5 pg/mL Normal 2.18-3.98 Compreh ensive Internal Medicine Work Phone: Comment on above: [facility] [address], [place], [phone] T4 Free DirectOrdered By: [employer] stem Rice Farmer on 10-31-2016 T4 free mass conc 1.13 ng/dL Normal 0.76-1.46 Compreh ensive Internal Medicine Work Phone: Comment on above: [facility] [address], [place], [phone] Thyroid Stim Hormone (TSH)Or dered By: Flask Maker on 10-31-2016 Thyrotropin Qn 5.53 {uIU/mL} Abnormal 0.358-3.74 Compreh ensive Internal Medicine Work Phone: Comment on above: [facility] [address] [place], [place], [phone] Office Visit: UC: thinks he may have pink eye in R eyeon 09-05-2016 Documentation of current medications (procedure) Done Invalid Interpretation Code [facility] Work Phone: Tobacco use [facility] Never smoker Invalid Interpretation Code [facility] Work Phone: GALLBLADDEROrdered By: Toni fisher Rice Farmer on 07-10-2016 GALLBLADDER See Note Normal [facility] Work Phone: Comment on above: Patient: SHERMAN CORONEL : 1965 (50/M) Acct Num: [id number] Phys: Taylor MORRISON,Yehuda Unit Num: [id number] Loc: [facility] [place] Specimen: [id number] Received: 07/11/161099 Spec Type: GALLBLADDE TISSUES TISSUES: GROSS DESCRIPTION Received is one container labeled with the patient's name and designated gallbladder. The specimen consists of a gallbladder measuring 9 cm in length and up to 4 cm in diameter. The external surface is pink-queen, smooth and glistening for the most part. Focally it is granular, hemorrhagic and contains cautery artifact. The gallbladder contains green-yellow mucoid bile and five variable sized stones measuring in aggregate 2 x 1 x 0.8 cm and 0.2 to 1 cm in greatest dimension. The mucosa also shows several yellowish streaks consistent with cholesterolosis. The mucosa is bile-stained and without any mass lesions. The gallbladder wall measures up to 0.4 cm in thickness. Compressor House Operator sections from the gallbladder and the cystic duct are submitted in one cassette./ DIONY:dakota 07/11/16 TC:2 CPT: 31881 HEADER OPERATION: Cholecystectomy, lap PRE-OP DIAGNOSIS: Epigastric pain, calculus of the gallbladder, chronic cholecystitis TISSUE SUBMITTED: Gallbladder MICROSCOPIC DESCRIPTION Slides are reviewed. MICROSCOPIC DIAGNOSIS Gallbladder: Acute and chronic cholecystitis, cholelithiasis and cholesterolosis. DIONY:dakota 07/13/16 Signed Mohsen Chawla 07/13/16 [facility] [address] [place], [address] Basic Metabolic Profile (BMP )Ordered By: Flask Maker on 07-07-2016 Basic metabolic 2000 panel 10 mg/dL Normal 7-18 [facility] Work Phone: Comment on above: 'TROP' Serial specim en #1, #2, #3, or #4: [address] [place] [address] [place], [place], [address] Basic metabolic 2000 panel 71 mL/min Normal [facility] Work Phone: Comment on above: Non- GFR Calc 'TROP' Serial specim en #1, #2, #3, or #4: [address] [place] [address] [place], [place], [address] Basic metabolic 2000 panel 10 1 Normal 5-15 [facility] Work Phone: Comment on above: 'TROP' Serial specim en #1, #2, #3, or #4: [address] [place] [address] [place], [place], [address] Basic metabolic 2000 panel 86 mL/min Normal [facility] Work Phone: Comment on above: GFR Calc 'TROP' Serial specim en #1, #2, #3, or #4: [address] [place] [address] [place], [place], [address] Basic metabolic 2000 panel 81.14 ml/min Normal [facility] Work Phone: Comment on above: 'TROP' Serial specim en #1, #2, #3, or #4: [address] [place] [address] [place], [address] Basic metabolic 2000 panel 26.0 mmol/L Normal 21.0-32.0 [facility] Work Phone: Comment on above: 'TROP' Serial specim en #1, #2, #3, or #4: [address] [place] [address] [place], [address] Basic metabolic 2000 panel 8.9 mg/dL Normal 8.5-10.1 [facility] Work Phone: Comment on above: 'TROP' Serial specim en #1, #2, #3, or #4: [address] [place] [address] [place], [place], [address] Basic metabolic 2000 panel 107 mmol/L Normal 98-107 [facility] Work Phone: Comment on above: 'TROP' Serial specim en #1, #2, #3, or #4: [address] [place] [address] [place], [address] Basic metabolic 2000 panel 168 mg/dL Abnormal 70-110 [facility] Work Phone: Comment on above: Fasting Glucose resu lt greater than or equal to 126 mg/dLsuggests DIABETES MELLITUS per A.D.A. criteria. 'TROP' Serial specim en #1, #2, #3, or #4: [address] [place] [address] [place], [place], [address] Basic metabolic 2000 panel 143 mmol/L Normal 136-145 [facility] Work Phone: Comment on above: 'TROP' Serial specim en #1, #2, #3, or #4: [address] [place] [address] [place], [place], [address] Basic metabolic 2000 panel 3.8 mmol/L Normal 3.5-5.1 [facility] Work Phone: Comment on above: 'TROP' Serial specim en #1, #2, #3, or #4: [address] [place] [address] [place], [place], [address] Basic metabolic 2000 panel 1.16 mg/dL Normal 0.70-1.30 [facility] Work Phone: Comment on above: The validity of the calculated GFR AND GFRAA in patients over70 years has not been determined. Clinical correlation isessential. 'TROP' Serial specim en #1, #2, #3, or #4: [address] [place] [address] [place], [address] Basic metabolic 2000 panel 8.6 {RATIO} Abnormal 10-20 [facility] Work Phone: Comment on above: 'TROP' Serial specim en #1, #2, #3, or #4: [address] [place] [address] [place], [address] CBC W/Diff, AutomatedOrdered By: Flask Maker on 07-07-2016 Absolute Lymph 1.63 {X10_3/ul} Normal 0.83-4.51 Compr ehensive Internal Medicine Work Phone: Absolute Neut 5.5 {X10_3/uL} Normal 2.0-7.7 Compreh ensive Internal Medicine Work Phone: Comment on above: [facility] [address] [place], [address] Basophils/100 WBC (Bld) 0.1 % Normal 0-1 [facility] Work Phone: Comment on above: [facility] spital [address] [place], [address] Basophils/100 WBC Auto (Bld) 0.1 % Normal 0-1 [facility] Work Phone: Eosinophils/100 WBC (Bld) 0.9 % Normal 0-5 [facility] Work Phone: Comment on above: [facility] [address] [place], [address] Eosinophils/100 WBC Auto (Bld) 0.9 % Normal 0-5 [facility] Work Phone: Erythrocyte distribution width Auto Ratio (RBC) 13.9 % Normal 11.6-14.6 [facility] Work Phone: Erythrocyte distribution width Ratio (RBC) 13.9 % Normal 11.6-14.6 [facility] Work Phone: Comment on above: [facility] [address] [place], [address] Hematocrit Auto Volume Fraction (Bld) 42.7 % Normal 40-54 [facility] Work Phone: Hematocrit Volume Fraction (Bld) 42.7 % Normal 40-54 [facility] Work Phone: Comment on above: [facility] [address] [place], [address] Hemoglobin mass conc (Bld) 14.8 g/dL Normal 13.0-16.5 [facility] Work Phone: Comment on above: [facility] [address] [place], [address] IM GRAN % 0.100 % Normal 0.0-0.9 [facility] Work Phone: Comment on above: IG% - Immature Granu locytes (promyelocytes, myelocytes andmetamyelocytes) > 1% indicates that a LEFT SHIFT is Present. [facility] [address] [place], [place], [phone] Lymphocytes #/vol (Bld) 1.63 {X10_3/ul} Normal 0.83-4.51 [facility] Work Phone: Comment on above: [facility] [address] [place], [place], [phone] Lymphocytes/100 WBC (Bld) 21.3 % Normal 19-41 [facility] Work Phone: Comment on above: [facility] [address] [place], [address] Lymphocytes/100 WBC Auto (Bld) 21.3 % Normal 19-41 [facility] Work Phone: MCH Auto Entitic mass (RBC) 29.6 pg Normal 27.0-32.0 [facility] Internal Medicine Work Phone: MCH Entitic mass (RBC) 29.6 pg Normal 27.0-32.0 [facility] Internal Medicine Work Phone: Comment on above: [facility] [address] [place], [address] MCHC Auto mass conc (RBC) 34.7 {g/gl} Normal 32-36 [facility] Work Phone: MCHC mass conc (RBC) 34.7 {g/gl} Normal 32-36 [facility] Internal Medicine Work Phone: Comment on above: [facility] [address] [place], [place], [phone] MCV Auto Entitic volume (RBC) 85.4 fL Normal 80-94 [facility] Work Phone: MCV Entitic volume (RBC) 85.4 fL Normal 80-94 [facility] Work Phone: Comment on above: [facility] [address] [place], [address] Monocytes/100 WBC Auto (Bld) 5.9 % Normal 0-10 [facility] Work Phone: Comment on above: [facility] [address] [place], [address] Neutrophils/100 WBC (Bld) 71.7 % Abnormal 47-70 [facility] Work Phone: Comment on above: [facility] [address] [place], [address] Neutrophils/100 WBC Auto (Bld) 71.7 % Abnormal 47-70 [facility] Work Phone: Platelet mean volume Auto Entitic volume (Bld) 10.4 fL Normal 6.2-12.0 [facility] Work Phone: Platelet mean volume Entitic volume (Bld) 10.4 fL Normal 6.2-12.0 Comprehensi ve Internal Medicine Work Phone: Comment on above: [facility] [address] [place], [address] Platelets #/vol (Bld) 196 10*3/uL Normal 150-450 Co mprehensive Internal Medicine Work Phone: Comment on above: [facility] [address] [place], [address] Platelets Auto #/vol (Bld) 196 10*3/uL Normal 150-450 [facility] Work Phone: RBC #/vol (Bld) 5.00 {M/mm3} Normal 4.6-6.2 Compreh ensive Internal Medicine Work Phone: Comment on above: [facility] [address] [place], [address] RBC Auto #/vol (Bld) 5.00 {M/mm3} Normal 4.6-6.2 Co mprehensive Internal Medicine Work Phone: RDW SD 42.6 fL Normal 35.1-43.9 [facility] Work Phone: Comment on above: [facility] [address] [place], [address] WBC #/vol (Bld) 7.7 10*3/uL Normal 4.4-11.0 Comprehe nsive Internal Medicine Work Phone: Comment on above: [facility] [address] [place], [address] WBC Auto #/vol (Bld) 7.7 10*3/uL Normal 4.4-11.0 Com prehensive Internal Medicine Work Phone: LipaseOrdered By: System Man ager on 07-07-2016 Lipase enzyme act/vol 118 U/L Normal 73-393 Com prehensive Internal Medicine Work Phone: Comment on above: 'TROP' Serial specim en #1, #2, #3, or #4: [address] [place] [address] [place], [address] Liver ProfileOrdered By: Cuate tem Rice Farmer on 07-07-2016 Albumin mass conc 4.1 g/dL Normal 3.4-5.0 Compreh ensive Internal Medicine Work Phone: Comment on above: 'TROP' Serial specim en #1, #2, #3, or #4: [address] [place] [address] [place], [address] ALP enzyme act/vol 73 U/L Normal 45-117 Compre hensive Internal Medicine Work Phone: Comment on above: 'TROP' Serial specim en #1, #2, #3, or #4: [address] [place] [address] [place], [address] ALT enzyme act/vol 53 U/L Normal 12-78 [facility] Work Phone: Comment on above: 'TROP' Serial specim en #1, #2, #3, or #4: [address] [place] [address] [place], [address] AST enzyme act/vol 31 U/L Normal 15-37 [facility] Internal Medicine Work Phone: Comment on above: 'TROP' Serial specim en #1, #2, #3, or #4: [address] [place] [address] [place], [place], [phone] Bilirubin mass conc 0.50 mg/dL Normal 0.20-1.00 [facility] Internal Medicine Work Phone: Comment on above: 'TROP' Serial specim en #1, #2, #3, or #4: [address] [place] [address] [place], [address] Bilirubin.direct mass conc 0.14 mg/dL Normal 0.00-0.30 [facility] Internal Medicine Work Phone: Comment on above: 'TROP' Serial specim en #1, #2, #3, or #4: [address] [place] [address] [place], [address] Globulin Calculated mass conc (S) 3.6 g/dL Abnormal 2.3-3.5 [facility] Work Phone: Globulin mass conc (S) 3.6 g/dL Abnormal 2.3-3.[address] [facility] Internal Medicine Work Phone: Comment on above: 'TROP' Serial specim en #1, #2, #3, or #4: [address] [place] [address] [place], [address] Protein mass conc 7.7 g/dL Normal 6.4-8.2 [facility] Work Phone: Comment on above: 'TROP' Serial specim en #1, #2, #3, or #4: [address] [place] [address] [place], [address] Troponin-IOrdered By: Flask Maker on 07-07-2016 Troponin I.cardiac mass conc ng/mL Normal [facility] Work Phone: Comment on above: TROPONIN-I EXPECTED VALUES <0.05 NEGATIVE 0.06 - 0.59 AT RISK OF [place] > [place] = 0.60 SUGGEST [place] 'TROP' Serial specim en #1, #2, #3, or #4: [address] [place] [address] [place], [address] CBC, EmployeeOrdered By: Cuate tem Rice Farmer on 03-27-2016 Absolute Lymph 1.97 {X10_3/ul} Normal 0.83-4.51 Compr ehensive Internal Medicine Work Phone: Absolute Neut 4.7 {X10_3/uL} Normal 2.0-7.7 Compreh ensive Internal Medicine Work Phone: Basophils/100 WBC (Bld) 0.3 % Normal 0-1 [facility] Work Phone: Comment on above: [facility] [address] [place], [address] Basophils/100 WBC Auto (Bld) 0.3 % Normal 0-1 [facility] Work Phone: Eosinophils/100 WBC (Bld) 1.6 % Normal 0-5 [facility] Work Phone: Comment on above: [facility] [address] [place], [address] Eosinophils/100 WBC Auto (Bld) 1.6 % Normal 0-5 [facility] Work Phone: Erythrocyte distribution width Auto Ratio (RBC) 14.1 % Normal 11.6-14.6 [facility] Work Phone: Erythrocyte distribution width Ratio (RBC) 14.1 % Normal 11.6-14.6 [facility] Work Phone: Comment on above: [facility] [address] [place], [place], [phone] Hematocrit Auto Volume Fraction (Bld) 40.6 % Normal 40-54 [facility] Work Phone: Hematocrit Volume Fraction (Bld) 40.6 % Normal 40-54 [facility] Work Phone: Comment on above: [facility] [address] [place], [address] Hemoglobin mass conc (Bld) 14.1 g/dL Normal 13.0-16.5 [facility] Work Phone: Comment on above: [place] [address] [place], [address] Lymphocytes/100 WBC (Bld) 26.7 % Normal 19-41 [facility] Work Phone: Comment on above: [place] [address] [place], [address] Lymphocytes/100 WBC Auto (Bld) 26.7 % Normal 19-41 [facility] Work Phone: MCH Auto Entitic mass (RBC) 29.5 pg Normal 27.0-32.0 [facility] Work Phone: MCH Entitic mass (RBC) 29.5 pg Normal 27.0-32.0 [facility] Internal Medicine Work Phone: Comment on above: [facility] [address] [place], [address] MCHC Auto mass conc (RBC) 34.7 {g/gl} Normal 32-36 [facility] Work Phone: MCHC mass conc (RBC) 34.7 {g/gl} Normal 32-36 [facility] Internal Medicine Work Phone: Comment on above: [facility] [address] [place], [place], [phone] MCV Auto Entitic volume (RBC) 84.9 fL Normal 80-94 [facility] Work Phone: MCV Entitic volume (RBC) 84.9 fL Normal 80-94 [facility] Work Phone: Comment on above: [facility] [address] [place], [address] Monocytes/100 WBC Auto (Bld) 7.6 % Normal 0-10 [facility] Work Phone: Comment on above: [facility] [address] [place], [address] Neutrophils/100 WBC (Bld) 63.5 % Normal 47-70 [facility] Work Phone: Comment on above: [facility] [address] [place], [address] Neutrophils/100 WBC Auto (Bld) 63.5 % Normal 47-70 [facility] Work Phone: Platelet mean volume Auto Entitic volume (Bld) 10.7 fL Normal 6.2-12.0 [facility] Work Phone: Platelet mean volume Entitic volume (Bld) 10.7 fL Normal 6.2-12.0 Comprehensi Internal Medicine Work Phone: Comment on above: [facility] [address] [place], [address] Platelets #/vol (Bld) 194 10*3/uL Normal 150-[address] [facility] Internal Medicine Work Phone: Comment on above: [facility] [address] [place], [address] Platelets Auto #/vol (Bld) 194 10*3/uL Normal 150-450 [facility] Work Phone: RBC #/vol (Bld) 4.78 {M/mm3} Normal 4.6-6.2 Compreh ensive Internal Medicine Work Phone: Comment on above: [facility] [address] [place], [place], [phone] RBC Auto #/vol (Bld) 4.78 {M/mm3} Normal 4.6-6.2 Co mprehensive Internal Medicine Work Phone: RDW SD 42.5 fL Normal 35.1-43.9 [facility] Work Phone: WBC #/vol (Bld) 7.4 10*3/uL Normal 4.4-11.0 Comprehe nsive Internal Medicine Work Phone: Comment on above: [facility] [address] [place], [address] WBC Auto #/vol (Bld) 7.4 10*3/uL Normal 4.4-11.0 Com prehensive Internal Medicine Work Phone: CBC, Employee 1.97 {X10_3/ul} Normal 0.83-4.51 Compre hensive Internal Medicine Work Phone: Comment on above: [facility] [address] [place], [place], [phone] CBC, Employee 4.7 {X10_3/uL} Normal 2.0-7.7 Compreh ensive Internal Medicine Work Phone: Comment on above: [facility] [address] [place], [place], [phone] CBC, Employee 42.5 fL Normal 35.1-43.9 Comprehensi ve Internal Medicine Work Phone: Comment on above: [facility] [address] [place], [address] Employee ProfileOrdered By: Flask Maker on 03-27-2016 A/G 1.1 {RATIO} Normal 0.9-2.4 [facility] Work Phone: Albumin mass conc 4.2 g/dL Normal 3.4-5.0 Compreh ensive Internal Medicine Work Phone: Comment on above: [facility] [address] [place], [place], [phone] Albumin/Globulin mass ratio 1.1 {RATIO} Normal 0.9-2.4 [facility] Work Phone: Comment on above: [facility] [address] [place], [place], [phone] ALP enzyme act/vol 75 U/L Normal 50-136 Compre [facility] Internal [facility] Work Phone: ALT enzyme act/vol 61 U/L Normal 12-78 [facility] Internal [facility] Work Phone: Comment on above: [facility] [address] [place], [place], [phone] AST enzyme act/vol 35 U/L Normal 15-37 [facility] Internal [facility] Work Phone: Comment on above: [facility] [address] [place], [place], [phone] Bilirubin mass conc 0.90 mg/dL Normal 0.20-1.00 Compr ensive Internal Medicine Work Phone: Comment on above: [facility] [address] [place], [place], [phone] Bilirubin.direct mass conc 0.14 mg/dL Normal 0.00-0.30 [facility] Work Phone: Comment on above: [facility] [address] [place], [place], [phone] BUN/CRE 10.5 {RATIO} Normal 10-20 Comprehensiv e Internal Medicine Work Phone: Calcium mass conc 9.0 mg/dL Normal 8.5-10.1 Compreh ensive Internal Medicine Work Phone: Comment on above: [facility] [address] [place], [address] Chloride molar conc 104 mmol/L Normal 98-107 Compr ensive Internal Medicine Work Phone: Comment on above: [facility] [address] [place], [place], [phone] CHOL:HDL 5.30 1 Normal [facility] Work Phone: Cholesterol in HDL mass conc 34 mg/dL Abnormal [facility] Work Phone: Comment on above: The drugs N-Acetylcy steine and Metamizole may falsely deressthis assay. Reference Range HDL <40 mg/dL Low HDL Cholesterol HDL >or= 60 mg/dL High HDL Cholesterol [facility] [address] [place], [place], [phone] Cholesterol in LDL mass conc 91 mg/dL Normal 0-130 [facility] Work Phone: Cholesterol in LDL mass conc 91 mg/dL Normal 0-130 [facility] Work Phone: Comment on above: [facility] [address] [place], [place], [phone] Cholesterol in VLDL mass conc 56 mg/dL Abnormal 5-40 [facility] Work Phone: Cholesterol mass conc 181 mg/dL Normal [facility] Internal Medicine Work Phone: Comment on above: <200 mg/dL Desirable 200-240 mg/dL Borderline >240 mg/dL High Risk [facility] [address] [place], [place], [address] CO2 molar conc 27.0 mmol/L Normal 21.0-32.0 [facility] Internal Medicine Work Phone: Comment on above: [facility] [address] [place], [place], [phone] Creatinine mass conc 1.14 mg/dL Normal 0.70-1.30 [facility] Work Phone: Comment on above: The validity of the calculated GFR AND GFRAA in patients over70 years has not been determined. Clinical correlation isessential. [facility] [address] [place], [place], [phone] EST GFR - AA 87 mL/min Normal Comprehensiv e Internal Medicine Work Phone: Comment on above: GFR Calc GAP 8 1 Normal 5-15 [facility] Work Phone: GFR/1.73 sq M predicted among non-blacks MDRD vol rate/area (S/P/Bld) 72 mL/min/{1.73_m2} Normal Comprehe nsive Internal Medicine Work Phone: Comment on above: Non- GFR Calc [facility] [address] [place], [place], [phone] Globulin Calculated mass conc (S) 3.7 g/dL Abnormal 2.3-3.5 [facility] Work Phone: Globulin mass conc (S) 3.7 g/dL Abnormal 2.3-3.5 [facility] Work Phone: Comment on above: [facility] [address] [place], [place], [phone] Glucose mass conc 94 mg/dL Normal 70-110 Compreh ensive Internal Medicine Work Phone: Comment on above: [facility] [address] [place], [place], [phone] LDH 193 U/L Normal 87-241 [facility] Work Phone: Phosphate mass conc 2.5 mg/dL Normal 2.5-4.9 Compr ehensive Internal Medicine Work Phone: Potassium molar conc 3.7 mmol/L Normal 3.5-5.1 Comp rehensive Internal Medicine Work Phone: Comment on above: [facility] [address] [place], [place], [phone] Protein mass conc 7.9 g/dL Normal 6.4-8.2 Compreh ensive Internal Medicine Work Phone: Comment on above: [facility] [address] [place], [place], [phone] Sodium molar conc 139 mmol/L Normal 136-145 Compreh ensive Internal Medicine Work Phone: Comment on above: [facility] [address] [place], [place], [phone] Triglyceride mass conc 280 mg/dL Abnormal Co mprehensive Internal Medicine Work Phone: Comment on above: The drugs N-Acetylcy steine and Metamizole may falsely deressthis assay.Serum Triglycerides Reference Interval Normal <150 mg/dL Borderline high 150 - 199 mg/dL High 200 - 499 mg/dL Very High > or = 500 mg/dL [place] [address] [place], [place], [phone] Urea nitrogen mass conc 12 mg/dL Normal 7-18 [facility] Work Phone: Comment on above: [place] [address] [place], [place], [phone] URIC 6.6 mg/dL Normal 3.5-7.2 [facility] Work Phone: Comment on above: The drugs N-Acetylcy steine and Metamizole may falsely deressthis assay. Employee Profile 193 U/L Normal 87-241 Comprehe nsive Internal Medicine Work Phone: Comment on above: [place] [address] [place], [place], [phone] Employee Profile 56 mg/dL Abnormal 5-40 Comprehe nsive Internal Medicine Work Phone: Comment on above: [place] [address] [place], [place], [address] Employee Profile 5.30 1 Normal Comprehe nsive Internal Medicine Work Phone: Comment on above: [place] [address] [place], [place], [phone] Employee Profile 8 1 Normal 5-15 Comprehe nsive Internal Medicine Work Phone: Comment on above: [facility] [address] [place], [place], [phone] Employee Profile 75 U/L Normal 50-136 Comprehe nsive Internal Medicine Work Phone: Comment on above: [facility] [address] [place], [place], [phone] Employee Profile 2.5 mg/dL Normal 2.5-4.9 Comprehe nsive Internal Medicine Work Phone: Comment on above: [facility] [address] [place], [address] Employee Profile 6.6 mg/dL Normal 3.5-7.2 Comprehe nsive Internal Medicine Work Phone: Comment on above: The drugs N-Acetylcy steine and Metamizole may falsely deressthis assay. [place] [address] [place], [place], [phone] Employee Profile 10.5 {RATIO} Normal 10-20 Compre hensive Internal Medicine Work Phone: Comment on above: [place] [address] [place], [place], [phone] Employee Profile 87 mL/min Normal Comprehe nsive Internal Medicine Work Phone: Comment on above: GFR Calc [facility] [address] [place], [place], [phone] Nicotine Urine Drug ScreenOr dered By: Flask Maker on 03-27-2016 COT DRG SCREEN Positive Normal Comprehens pauline Internal Medicine Work Phone: Comment on above: Cotinine is the firs t-stage metabolite of Nicotine. TO BE CONFIRMED Normal Comprehen sive Internal Medicine Work Phone: Comment on above: CONFIRMATORY TESTING FOR ALL POSITIVE URINE DRUG SCREENRESULTS WILL ONLY BE SENT OUT UPON PHYSICIAN ORDER.The results of Urine Drug Screen methods provide onlypreliminary analytical test results. A more specificalternate chemical method must be used in order to obtain aconfirmed analytical result. Gas chromatography/massspectrometery (GC/MS) is the preferred confirmatory method.Clinical consideration and professional judgement should beapplied to any drug of abuse test result, particularly whenpreliminary positive results are used. Nicotine Urine Drug Screen Positive Normal [facility] Work Phone: Comment on above: Cotinine is the firs t-stage metabolite of Nicotine. [facility] [address] [place], [place], [phone] Nicotine Urine Drug Screen Normal [facility] Work Phone: Comment on above: CONFIRMATORY TESTING FOR ALL POSITIVE URINE DRUG SCREENRESULTS WILL ONLY BE SENT OUT UPON PHYSICIAN ORDER.The results of Urine Drug Screen methods provide onlypreliminary analytical test results. A more specificalternate chemical method must be used in order to obtain aconfirmed analytical result. Gas chromatography/massspectrometery (GC/MS) is the preferred confirmatory method.Clinical consideration and professional judgement should beapplied to any drug of abuse test result, particularly whenpreliminary positive results are used. [facility] [facility] [address] [place], [place], [id number] Urinalysis, EmployeeOrdered By: Flask Maker on 03-27-2016 CLARITY Clear Normal [facility] Work Phone: Clarity Nom (U) Clear Normal Comprehen sive Internal Medicine Work Phone: Comment on above: How was Urine Obtain ed? CLEAN [facility] [address] [place], [place], [id number] COLOR Yellow Normal [facility] Work Phone: Color Nom (U) Yellow Normal Comprehensi ve Internal Medicine Work Phone: Comment on above: How was Urine Obtain ed? CLEAN [facility] [address] [place], [place], [id number] LEUK ESTERASE Negative Normal Comprehensi ve Internal Medicine Work Phone: pH UR 5.0 1 Normal 5.0 - 8.0 [facility] Work Phone: SP.GR. DIPSTX 1.020 1 Normal 1.002-1.03 0 [facility] Work Phone: UROBILI Normal Normal [facility] Work Phone: Urinalysis, Employee 5.0 1 Normal 5.0 - 8.0 Comp rehensive Internal Medicine Work Phone: Comment on above: How was Urine Obtain ed? [facility] [address] [place], [place], [id number] Urinalysis, Employee Normal Normal Comp rehensive Internal Medicine Work Phone: Comment on above: How was Urine Obtain ed? [facility] [address] [place], [place], [id number] Urinalysis, Employee Negative Normal Comp rehensive Internal Medicine Work Phone: Comment on above: How was Urine Obtain ed? [facility] [address] [place], [place], [address] Urinalysis, Employee 1.020 1 Normal 1.002-1 .03 0 [facility] Work Phone: Comment on above: How was Urine Obtain ed? [facility] [address] 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 02-13-2016 BUN/Creatinine Ratio 10.6 mg/mg Invalid Interpretation Code [facility] [employer] Work Phone: Calcium 8.2 mg/dL Invalid Interpretation Code [facility] [employer] Work Phone: Chloride 111 mmol/L Invalid Interpretation Code [facility] Work Phone: Cholesterol 147 mg/dL Invalid Interpretation Code [facility] Work Phone: CO2 23.0 mmol/L Invalid Interpretation Code [facility] Work Phone: Creatinine 1.04 mg/dL Invalid Interpretation Code [facility] Work Phone: HDL Cholesterol 31 mg/dL Invalid Interpretation Code [facility] Work Phone: Hematocrit (HCT) 40.9 % Invalid Interpretation Code [facility] Work Phone: Hemoglobin (HGB) 13.8 g/dL Invalid Interpretation Code [facility] Work Phone: LDL Cholesterol 65 mg/dL Invalid Interpretation Code [facility] Work Phone: Platelets 171 10*3/mm3 Invalid Interpretation Code [place] Work Phone: Potassium 3.6 mmol/L Invalid Interpretation Code [facility] Work Phone: Sodium 144 mmol/L Invalid Interpretation Code [facility] Work Phone: Triglyceride 255 mg/dL Invalid Interpretation Code [place] Work Phone: very low density lipoproteins 51 mg/dL Invalid Interpretation Code [place] Work Phone: WBC (Leukocytes) 5.3 10*3/uL Invalid Interpretation Code [place] Work Phone: Basic Metabolic Profile (BMP )Ordered By: Flask Maker on 02-12-2016 Basic metabolic 2000 panel 80 mL/min Normal [facility] Work Phone: Comment on above: GFR Calc 'TROP' Serial specim en #1, #2, #3, or #4: [address] [place] [address] [address] [place], [place], [id number] Basic metabolic 2000 panel 66 mL/min Normal [facility] Work Phone: Comment on above: Non- GFR Calc 'TROP' Serial specim en #1, #2, #3, or #4: [address] [place] [address] [place], [place], [id number] Basic metabolic 2000 panel 8.9 mg/dL Normal 8.5-10.1 [facility] Work Phone: Comment on above: 'TROP' Serial specim en #1, #2, #3, or #4: [address] [place] [address] [place], [place], [id number] Basic metabolic 2000 panel 108 mmol/L Abnormal 98-107 [facility] Work Phone: Comment on above: 'TROP' Serial specim en #1, #2, #3, or #4: [address] [place] [address] [place], [place], [id number] Basic metabolic 2000 panel 14.6 {RATIO} Normal 10-20 [facility] Work Phone: Comment on above: 'TROP' Serial specim en #1, #2, #3, or #4: [address] [place] [address] [place], [place], [phone] Basic metabolic 2000 panel 76.52 ml/min Normal [facility] Work Phone: Comment on above: 'TROP' Serial specim en #1, #2, #3, or #4: [address] [place] [address] [place], [place], [address] Basic metabolic 2000 panel 144 mmol/L Normal 136-145 [facility] Work Phone: Comment on above: 'TROP' Serial specim en #1, #2, #3, or #4: [address] [place] [address] [place], [place], [id number] Basic metabolic 2000 panel 3.8 mmol/L Normal 3.5-5.1 [facility] Work Phone: Comment on above: 'TROP' Serial specim en #1, #2, #3, or #4: [address] [place] [address] [place], [place], [id number] Basic metabolic 2000 panel 1.23 mg/dL Normal 0.70-1.30 [facility] Work Phone: Comment on above: The validity of the calculated GFR AND GFRAA in patients over70 years has not been determined. Clinical correlation isessential. 'TROP' Serial specim en #1, #2, #3, or #4: [address] [place] [address] [place], [address] Basic metabolic 2000 panel 28.0 mmol/L Normal 21.0-32.0 [facility] Work Phone: Comment on above: 'TROP' Serial specim en #1, #2, #3, or #4: [address] [place] [address] [place], [address] Basic metabolic 2000 panel 8 1 Normal 5-15 [facility] Work Phone: Comment on above: 'TROP' Serial specim en #1, #2, #3, or #4: [address] [place] [address] [place], [address] Basic metabolic 2000 panel 18 mg/dL Normal 7-18 [facility] Work Phone: Comment on above: 'TROP' Serial specim en #1, #2, #3, or #4: [address] [place] [address] [place], [address] Basic metabolic 2000 panel 150 mg/dL Abnormal 70-110 [facility] Work Phone: Comment on above: Fasting Glucose resu lt greater than or equal to 126 mg/dLsuggests DIABETES MELLITUS per A.D.A. criteria. 'TROP' Serial specim en #1, #2, #3, or #4: [address] [place] [address] [place], [address] CBC W/Diff, AutomatedOrdered By: Flask Maker on 02-12-2016 Absolute Lymph 2.16 {X10_3/ul} Normal 0.83-4.51 Compr ehensive Internal Medicine Work Phone: Absolute Neut 3.6 {X10_3/uL} Normal 2.0-7.7 Compreh ensive Internal Medicine Work Phone: Comment on above: [facility] [address] [place], [address] Basophils/100 WBC (Bld) 0.3 % Normal 0-1 [facility] Work Phone: Comment on above: [facility] [address] [place], [address] Basophils/100 WBC Auto (Bld) 0.3 % Normal 0-1 [facility] Work Phone: Eosinophils/100 WBC (Bld) 1.7 % Normal 0-5 [facility] Work Phone: Comment on above: [facility] [address] [place], [address] Eosinophils/100 WBC Auto (Bld) 1.7 % Normal 0-5 [facility] Work Phone: Erythrocyte distribution width Auto Ratio (RBC) 13.7 % Normal 11.6-14.6 [facility] Work Phone: Erythrocyte distribution width Ratio (RBC) 13.7 % Normal 11.6-14.6 [facility] Work Phone: Comment on above: [facility] [address] [place], [address] Hematocrit Auto Volume Fraction (Bld) 44.0 % Normal 40-54 [facility] Work Phone: Hematocrit Volume Fraction (Bld) 44.0 % Normal 40-54 [facility] Work Phone: Comment on above: [facility] [address] [place], [address] Hemoglobin mass conc (Bld) 14.9 g/dL Normal 13.0-16.5 [facility] Work Phone: Comment on above: [facility] [address] [place], [address] IM GRAN % 0.300 % Normal 0.0-0.9 [facility] Work Phone: Comment on above: IG% - Immature Granu locytes (promyelocytes, myelocytes andmetamyelocytes) > 1% indicates that a LEFT SHIFT is Present. [facility] [address] [place], [address] Lymphocytes #/vol (Bld) 2.16 {X10_3/ul} Normal 0.83-4.51 [facility] Work Phone: Comment on above: [place] [address] [place], [address] Lymphocytes/100 WBC (Bld) 33.4 % Normal 19-41 [facility] Work Phone: Comment on above: [place] [address] [place], [address] Lymphocytes/100 WBC Auto (Bld) 33.4 % Normal 19-41 [facility] Work Phone: MCH Auto Entitic mass (RBC) 29.3 pg Normal 27.0-32.0 [facility] Work Phone: MCH Entitic mass (RBC) 29.3 pg Normal 27.0-32.0 [facility] Internal [facility] Work Phone: Comment on above: [place] [address] [place], [address] MCHC Auto mass conc (RBC) 33.9 {g/gl} Normal 32-36 [facility] Work Phone: MCHC mass conc (RBC) 33.9 {g/gl} Normal 32-36 [facility] Internal Medicine Work Phone: Comment on above: [facility] [address] [place], [address] MCV Auto Entitic volume (RBC) 86.4 fL Normal 80-94 [facility] Work Phone: MCV Entitic volume (RBC) 86.4 fL Normal 80-94 [facility] Work Phone: Comment on above: [facility] [address] [place], [address] Monocytes/100 WBC Auto (Bld) 8.2 % Normal 0-10 [facility] Work Phone: Comment on above: [facility] [address] [place], [address] Neutrophils/100 WBC (Bld) 56.1 % Normal 47-70 [facility] Work Phone: Comment on above: [facility] [address] [place], [address] Neutrophils/100 WBC Auto (Bld) 56.1 % Normal 47-70 [facility] Work Phone: Platelet mean volume Auto Entitic volume (Bld) 10.0 fL Normal 6.2-12.0 [facility] Work Phone: Platelet mean volume Entitic volume (Bld) 10.0 fL Normal 6.2-12.0 Comprehensi Internal Medicine Work Phone: Comment on above: [facility] [address] [place], [address] Platelets #/vol (Bld) 177 10*3/uL Normal 150-450 Co mprensive Internal Medicine Work Phone: Comment on above: [facility] [address] [place], [address] Platelets Auto #/vol (Bld) 177 10*3/uL Normal 150-450 [facility] Work Phone: RBC #/vol (Bld) 5.09 {M/mm3} Normal 4.6-6.2 Compreh ensive Internal Medicine Work Phone: Comment on above: [facility] [address] [place], [address] RBC Auto #/vol (Bld) 5.09 {M/mm3} Normal 4.6-6.2 Co mprehensive [facility] Work Phone: RDW SD 43.4 fL Normal 35.1-43.9 [facility] Work Phone: Comment on above: [facility] [address] [place], [address] WBC #/vol (Bld) 6.5 10*3/uL Normal 4.4-11.0 Comprehe nsive Internal Medicine Work Phone: Comment on above: [facility] [address] [place], [id number] WBC Auto #/vol (Bld) 6.5 10*3/uL Normal 4.4-11.0 [facility] prehensive Internal Medicine Work Phone: Troponin-IOrdered By: Flask Maker on 02-12-2016 Troponin I.cardiac mass conc ng/mL Normal [facility] Work Phone: Comment on above: TROPONIN-I EXPECTED VALUES <0.05 NEGATIVE 0.06 - 0.59 AT RISK OF [place] > OR = 0.60 SUGGEST [place] 'TROP' Serial specim en #1, #2, #3, or #4: [address] [place] [address] [place], [id number] PTH,INTACTOrdered By: Flask Maker on 03-04-2015 PTH,Intact 58 pg/mL Normal 14-72 [facility] Work Phone: PTH,INTACT 58 pg/mL Normal 14-72 [facility] Work Phone: Comment on above: Test performed at:[facility] [address] [place] [address] Vitamin D,25 HydroxyOrdered By: Flask Maker on 03-04-2015 Vitamin D 25-OH 5.3 ng/mL Normal Comprehen sive Internal Medicine Work Phone: Comment on above: Vitamin D 25(OH) Sta tus Range Deficiency <20 ng/mL (50nmol/L) Insuffciency 20 - 30 ng/mL (50 - 75 nmol/L) Sufficiency 30 - 100 ng/mL (75 - 250 nmol/L) Toxicity >100 ng/mL (>250 nmol/L) Vitamin D,25 Hydroxy 5.3 ng/mL Normal Comp rehensive Internal Medicine Work Phone: Comment on above: Vitamin D 25(OH) Sta tus Range Deficiency <20 ng/mL (50nmol/L) Insuffciency 20 - 30 ng/mL (50 - 75 nmol/L) Sufficiency 30 - 100 ng/mL (75 - 250 nmol/L) Toxicity >100 ng/mL (>250 nmol/L) Test performed at:[facility] [address] [place] [address] CBC, EmployeeOrdered By: Cuate tem Rice Farmer on 02-15-2015 Absolute Lymph 1.92 {X10_3/ul} Normal 0.83-4.51 Compr ehensive Internal Medicine Work Phone: Absolute Neut 3.4 {X10_3/uL} Normal 2.0-7.7 Compreh ensive Internal Medicine Work Phone: Basophils/100 WBC (Bld) 0.2 % Normal 0-1 [facility] Work Phone: Comment on above: Test performed at:[facility] [address] [place] [address] Basophils/100 WBC Auto (Bld) 0.2 % Normal 0-1 [facility] Work Phone: Eosinophils/100 WBC (Bld) 1.9 % Normal 0-5 [facility] Work Phone: Comment on above: Test performed at:[facility] [address] [place] [address] Eosinophils/100 WBC Auto (Bld) 1.9 % Normal 0-5 [facility] Work Phone: Erythrocyte distribution width Auto Ratio (RBC) 13.5 % Normal 11.6-14.6 [facility] Work Phone: Erythrocyte distribution width Ratio (RBC) 13.5 % Normal 11.6-14.6 [facility] Work Phone: Comment on above: Test performed at:[facility] [address] [place] [address] Hematocrit Auto Volume Fraction (Bld) 42.2 % Normal 40-54 [facility] Work Phone: Hematocrit Volume Fraction (Bld) 42.2 % Normal 40-54 [facility] Work Phone: Comment on above: Test performed at:[facility] [address] [place] [address] Hemoglobin mass conc (Bld) 14.4 g/dL Normal 13.0-16.5 [facility] Work Phone: Comment on above: Test performed at:[facility] [address] [place] [address] Lymphocytes/100 WBC (Bld) 33.2 % Normal 19-41 [facility] Work Phone: Comment on above: Test performed at:[facility] [address] [place] [address] Lymphocytes/100 WBC Auto (Bld) 33.2 % Normal 19-41 [facility] Work Phone: MCH Auto Entitic mass (RBC) 29.1 pg Normal 27.0-32.0 [facility] Work Phone: MCH Entitic mass (RBC) 29.1 pg Normal 27.0-32.0 [facility] Internal Medicine Work Phone: Comment on above: Test performed at:[facility] [address] [place] [address] MCHC Auto mass conc (RBC) 34.1 {g/gl} Normal 32-36 [facility] Work Phone: MCHC mass conc (RBC) 34.1 {g/gl} Normal 32-36 [facility] prehensive Internal Medicine Work Phone: Comment on above: Test performed at:[facility] [address] [place] [address] MCV Auto Entitic volume (RBC) 85.4 fL Normal 80-94 [facility] Work Phone: MCV Entitic volume (RBC) 85.4 fL Normal 80-94 [facility] Work Phone: Comment on above: Test performed at:[facility] [address] [place] [address] Monocytes/100 WBC Auto (Bld) 6.4 % Normal 0-10 [facility] Work Phone: Comment on above: Test performed at:[facility] [address] [place] [address] Neutrophils/100 WBC (Bld) 58.1 % Normal 47-70 [facility] Work Phone: Comment on above: Test performed at:[facility] [address] [place] [address] Neutrophils/100 WBC Auto (Bld) 58.1 % Normal 47-70 [facility] Work Phone: Platelet mean volume Auto Entitic volume (Bld) 9.9 fL Normal 6.2-12.0 [facility] Work Phone: Platelet mean volume Entitic volume (Bld) 9.9 fL Normal 6.2-12.0 Comprehensi Internal Medicine Work Phone: Comment on above: Test performed at:[facility] [address] [place] [address] Platelets #/vol (Bld) 156 10*3/uL Normal 150-450 Co mprehensive [facility] Work Phone: Comment on above: Test performed at:[facility] [address] [place], [place] [id number] Platelets Auto #/vol (Bld) 156 10*3/uL Normal 150-450 [facility] Work Phone: RBC #/vol (Bld) 4.94 {M/mm3} Normal 4.6-6.2 Compreh ensive Internal Medicine Work Phone: Comment on above: Test performed at:[facility] [address] [place] [address] RBC Auto #/vol (Bld) 4.94 {M/mm3} Normal 4.6-6.2 Co mprehensive [facility] Work Phone: RDW SD 41.5 fL Normal 35.1-43.9 [facility] Work Phone: WBC #/vol (Bld) 5.8 10*3/uL Normal 4.4-11.0 Comprehe nsive Internal Medicine Work Phone: Comment on above: Test performed at:[facility] [address] [place] [address] WBC Auto #/vol (Bld) 5.8 10*3/uL Normal 4.4-11.0 Com prehensive Internal Medicine Work Phone: CBC, Employee 1.92 {X10_3/ul} Normal 0.83-4.51 Compre hensive Internal Medicine Work Phone: Comment on above: Test performed at:[facility] [address] [place] [address] CBC, Employee 41.5 fL Normal 35.1-43.9 Comprehensi ve Internal Medicine Work Phone: Comment on above: Test performed at:[facility] [address] [place] [address] CBC, Employee 3.4 {X10_3/uL} Normal 2.0-7.7 Compreh ensive Internal Medicine Work Phone: Comment on above: Test performed at:[facility] [address] [place], [place] [id number] Employee ProfileOrdered By: Flask Maker on 02-15-2015 A/G 1.3 {RATIO} Normal 0.9-2.4 [facility] Work Phone: Albumin mass conc 3.9 g/dL Normal 3.4-5.0 Compreh ensive Internal Medicine Work Phone: Comment on above: Test performed at:[facility] [address] [place] [address] Albumin/Globulin mass ratio 1.3 {RATIO} Normal 0.9-2.4 [facility] Work Phone: Comment on above: Test performed at:[facility] [address] [place] [address] ALP enzyme act/vol 75 U/L Normal 50-136 [facility]pre [facility] Work Phone: ALT enzyme act/vol 56 U/L Normal 12-78 Compre [facility] Work Phone: Comment on above: Test performed at:[facility] [address] [place] [address] AST enzyme act/vol 28 U/L Normal 15-37 Compre [facility] Work Phone: Comment on above: Test performed at:[facility] [address] [place] [address] Bilirubin mass conc 0.60 mg/dL Normal 0.20-1.00 Compr ensive Internal Medicine Work Phone: Comment on above: Test performed at:[facility] [address] [place] [address] Bilirubin.direct mass conc 0.14 mg/dL Normal 0.00-0.30 [facility] Work Phone: Comment on above: Test performed at:[facility] [address] [place] [address] BUN/CRE 12.5 {RATIO} Normal 10-20 Comprehensiv e Internal Medicine Work Phone: Calcium mass conc 8.6 mg/dL Normal 8.5-10.1 Compreh ensive Internal Medicine Work Phone: Comment on above: Test performed at:[facility] [address] [place] [address] Chloride molar conc 106 mmol/L Normal 98-107 Compr ehensive Internal Medicine Work Phone: Comment on above: Test performed at:[facility] [address] [place] [address] Cholesterol in HDL mass conc 28 mg/dL Abnormal [facility] Work Phone: Comment on above: Reference Range HDL <40 mg/dL Low HDL Cholesterol HDL >or= 60 mg/dL High HDL Cholesterol Test performed at:[facility] [address] [place] [address] Cholesterol in LDL mass conc 88 mg/dL Normal 0-130 [facility] Work Phone: Cholesterol in LDL mass conc 88 mg/dL Normal 0-130 [facility] Work Phone: Comment on above: Test performed at:[facility] [address] [place] [address] Cholesterol in VLDL mass conc 56 mg/dL Abnormal 5-40 [facility] Work Phone: Cholesterol mass conc 172 mg/dL Normal Com prehensive Internal Medicine Work Phone: Comment on above: <200 mg/dL Desirable 200-240 mg/dL Borderline >240 mg/dL High Risk Test performed at:[facility] [address] [place] [address] CO2 molar conc 28.0 mmol/L Normal 21.0-32.0 Comprehen sive Internal Medicine Work Phone: Comment on above: Test performed at:[facility] [address] [place], [place] [id number] Creatinine mass conc 1.2 mg/dL Normal 0.8-1.3 Comp rehensive Internal Medicine Work Phone: Comment on above: Test performed at:[facility] [address] [place], [place] [id number] EST GFR - AA 82 mL/min Normal Comprehensiv e Internal Medicine Work Phone: GAP 6 1 Normal 5-15 [facility] Work Phone: GFR/1.73 sq M predicted among non-blacks MDRD vol rate/area (S/P/Bld) 68 mL/min/{1.73_m2} Normal Comprehe nsive Internal Medicine Work Phone: Comment on above: Test performed at:[facility] [address] [place] [address] Globulin Calculated mass conc (S) 3.1 g/dL Normal 2.7-4.2 [facility] Work Phone: Globulin mass conc (S) 3.1 g/dL Normal 2.7-4.2 Co mprehensive [facility] Medicine Work Phone: Comment on above: Test performed at:[facility] [address] [place] [address] Glucose mass conc 100 mg/dL Normal 70-110 Compreh ensive Internal Medicine Work Phone: Comment on above: Test performed at:[facility] [address] [place] [address] HDLEMP 28 mg/dL Abnormal [facility] Work Phone: Comment on above: Reference Range HDL <40 mg/dL Low HDL Cholesterol HDL >or= 60 mg/dL High HDL Cholesterol LDH 171 U/L Normal 84-246 [facility] Work Phone: Phosphate mass conc 2.3 mg/dL Abnormal 2.5-4.9 Compr ehensive Internal Medicine Work Phone: Potassium molar conc 3.6 mmol/L Normal 3.5-5.1 Comp rehensive Internal Medicine Work Phone: Comment on above: Test performed at:[facility] [address] [place] [address] Protein mass conc 7.0 g/dL Normal 6.4-8.2 Compreh ensive Internal Medicine Work Phone: Comment on above: Test performed at:[facility] [address] [place] [address] Sodium molar conc 140 mmol/L Normal 136-145 Compreh ensive Internal Medicine Work Phone: Comment on above: Test performed at:[facility] [address] [place] [address] Triglyceride mass conc 280 mg/dL Abnormal 0-199 Co mprehensive [facility] Work Phone: Comment on above: Serum Triglycerides Reference Interval Normal <150 mg/dL Borderline high 150 - 199 mg/dL High 200 - 499 mg/dL Very High > or = 500 mg/dL Test performed at:[facility] [address] [place] [address] Urea nitrogen mass conc 15 mg/dL Normal 7-18 [facility] Work Phone: Comment on above: Test performed at:[facility] [address] [place] [address] URIC 4.6 mg/dL Normal 3.5-7.2 [facility] Work Phone: Employee Profile 82 mL/min Normal Comprehe nsive Internal Medicine Work Phone: Comment on above: Test performed at:[facility] [address] [place] [address] Employee Profile 12.5 {RATIO} Normal 10-20 Compre hensive Internal Medicine Work Phone: Comment on above: Test performed at:[facility] [address] [place] [address] Employee Profile 4.6 mg/dL Normal 3.5-7.2 Comprehe nsive Internal Medicine Work Phone: Comment on above: Test performed at:[facility] [address] [place], [place] [id number] Employee Profile 2.3 mg/dL Abnormal 2.5-4.9 Comprehe nsive Internal Medicine Work Phone: Comment on above: Test performed at:[facility] [address] [place] [address] Employee Profile 75 U/L Normal 50-136 Comprehe nsive Internal Medicine Work Phone: Comment on above: Test performed at:[facility] [address] [place] [address] Employee Profile 6 1 Normal 5-15 Comprehe nsive Internal Medicine Work Phone: Comment on above: Test performed at:[facility] [address] [place] [address] Employee Profile 28 mg/dL Abnormal Comprehe nsive Internal Medicine Work Phone: Comment on above: Reference Range HDL <40 mg/dL Low HDL Cholesterol HDL >or= 60 mg/dL High HDL Cholesterol Test performed at:[facility] [address] [place] [address] Employee Profile 56 mg/dL Abnormal 5-40 Comprehe nsive Internal Medicine Work Phone: Comment on above: Test performed at:[facility] [address] [place] [address] Employee Profile 171 U/L Normal 84-246 Comprehe nsive Internal Medicine Work Phone: Comment on above: Test performed at:[facility] [address] [place] [address] Urinalysis, EmployeeOrdered By: Flask Maker on 02-15-2015 CLARITY Clear Normal [facility] Work Phone: Clarity Nom (U) Clear Normal Comprehen sive Internal Medicine Work Phone: Comment on above: Test performed at:[facility] [address] [place] [address] COLOR Yellow Normal [facility] Work Phone: Color Nom (U) Yellow Normal Comprehensi ve Internal Medicine Work Phone: Comment on above: Test performed at:[facility] [address] [place] [address] LEUK ESTERASE Negative Normal Comprehensi ve Internal Medicine Work Phone: pH UR 6.0 1 Normal 5.0 - 8.0 [facility] Work Phone: SP.GR. DIPSTX 1.015 1 Normal 1.002-1.03 0 [facility] Work Phone: UROBILI Normal Normal [facility] Work Phone: Urinalysis, Employee Negative Normal Comp rehensive Internal Medicine Work Phone: Comment on above: Test performed at:[facility] [address] [place] [address] Urinalysis, Employee 1.015 1 Normal 1.002-1 .03 0 [facility] Work Phone: Comment on above: Test performed at:[facility] [address] [place] [address] Urinalysis, Employee 6.0 1 Normal 5.0 - 8.0 [facility] rehensive Internal Medicine Work Phone: Comment on above: Test performed at:[facility] [address] [place] [address] Urinalysis, Employee Normal Normal Comp rehensive Internal Medicine Work Phone: Comment on above: Test performed at:[facility] [address] [place] [address] Uric AcidOrdered By: Flask Maker on 11-17-2014 Urate mass conc 3.5 mg/dL Normal 3.5-7.2 Comprehen [facility] Internal Medicine Work Phone: Comment on above: Test performed at:[facility] [address] [place] [address] Rheumatoid FactorOrdered By: Flask Maker on 09-29-2014 Rheumatoid Factor < 10.0 Normal Compreh ensive Internal Medicine Work Phone: Comment on above: Test performed at:[facility] [address] [place] [address] Uric AcidOrdered By: Flask Maker on 09-29-2014 Urate mass conc 9.5 mg/dL Abnormal 3.5-7.2 [facility] Internal Medicine Work Phone: Comment on above: Test performed at:[facility] [address] [place] [address] Uric Acid 9.5 mg/dL Abnormal 3.5-7.2 [facility] Work Phone: [id number] By: System Pandorama r on 04-14-2014 Hemoglobin A1c/Hemoglobin.total mass fraction (Bld) 5.1 % Normal 4.2-6.3 Comprehensiv e Internal Medicine Work Phone: CBCEMOrdered By: System Adriana kris on 02-25-2014 Erythrocyte distribution width Auto Ratio (RBC) 13.6 % Normal 11.6-14.6 [facility] Work Phone: Erythrocyte distribution width Ratio (RBC) 13.6 % Normal 11.6-14.6 [facility] Work Phone: Hematocrit Auto Volume Fraction (Bld) 41.2 % Normal 40-54 [facility] Work Phone: Hematocrit Volume Fraction (Bld) 41.2 % Normal 40-54 [facility] Work Phone: Hemoglobin mass conc (Bld) 14.5 g/dL Normal 13.0-16.5 [facility] Work Phone: MCH Auto Entitic mass (RBC) 29.4 pg Normal 27.0-32.0 [facility] Work Phone: MCH Entitic mass (RBC) 29.4 pg Normal 27.0-32.0 Co m[facility] Work Phone: MCHC Auto mass conc (RBC) 35.2 {g/gl} Normal 32-36 [facility] Work Phone: MCHC mass conc (RBC) 35.2 {g/gl} Normal 32-36 Com prehensive Internal Medicine Work Phone: MCV Auto Entitic volume (RBC) 83.4 fL Normal 80-94 [facility] Work Phone: MCV Entitic volume (RBC) 83.4 fL Normal 80-94 [facility] Work Phone: Platelet mean volume Auto Entitic volume (Bld) 9.9 fL Normal 6.2-12.0 [facility] Work Phone: Platelet mean volume Entitic volume (Bld) 9.9 fL Normal 6.2-12.0 Comprehensi ve Internal Medicine Work Phone: Platelets #/vol (Bld) 161 10*3/uL Normal 150-450 Co m[facility] Work Phone: Platelets Auto #/vol (Bld) 161 10*3/uL Normal 150-450 [facility] Work Phone: RBC #/vol (Bld) 4.94 {M/mm3} Normal 4.6-6.2 Compreh ensive Internal Medicine Work Phone: RBC Auto #/vol (Bld) 4.94 {M/mm3} Normal 4.6-6.2 Co m[facility] Work Phone: WBC #/vol (Bld) 5.6 10*3/uL Normal 4.4-11.0 Comprehe nsive Internal Medicine Work Phone: WBC Auto #/vol (Bld) 5.6 10*3/uL Normal 4.4-11.0 Com prehensive Internal Medicine Work Phone: CBCEM 3.3 {X10_3/uL} Normal 2.0-7.7 Comprehens pauline Internal Medicine Work Phone: CBCEM 1.8 % Normal 0-5 [facility] Work Phone: CBCEM 6.6 % Normal 0-10 [facility] Work Phone: CBCEM 32.0 % Normal 19-41 [facility] Work Phone: CBCEM 59.0 % Normal 47-70 [facility] Work Phone: CBCEM 40.9 fL Normal 35.1-43.9 [facility] Work Phone: CBCEM 1.79 {X10_3/ul} Normal 0.83-4.51 Comprehen sive Internal Medicine Work Phone: CBCEM 0.2 % Normal 0-1 [facility] Work Phone: EMPOrdered By: System Manage r on 02-25-2014 Albumin mass conc 3.9 g/dL Normal 3.4-5.0 Compreh ensive Internal Medicine Work Phone: Albumin/Globulin mass ratio 1.2 {RATIO} Normal 0.9-2.4 [facility] Work Phone: ALT enzyme act/vol 57 U/L Normal 12-78 Compre hensive Internal Medicine Work Phone: AST enzyme act/vol 31 U/L Normal 15-37 Compre hensive Internal Medicine Work Phone: Calcium mass conc 9.2 mg/dL Normal 8.5-10.1 Compreh ensive Internal Medicine Work Phone: Chloride molar conc 104 mmol/L Normal 98-107 Compr ehensive Internal Medicine Work Phone: Cholesterol in HDL mass conc 28 mg/dL Abnormal [facility] Work Phone: Comment on above: Reference RangeHDL < 40 mg/dL Low HDL CholesterolHDL >or= 60 mg/dL High HDL Cholesterol Cholesterol in LDL mass conc 87 mg/dL Normal 0-130 [facility] Work Phone: Cholesterol mass conc 173 mg/dL Normal Com prehensive Internal Medicine Work Phone: Comment on above: <200 mg/dL Desirable 200-240 mg/dL Borderline>240 mg/dL High Risk CO2 molar conc 27.0 mmol/L Normal 21.0-32.0 Comprehen sive Internal Medicine Work Phone: Creatinine mass conc 1.1 mg/dL Normal 0.8-1.3 Comp rehensive Internal Medicine Work Phone: GFR/1.73 sq M predicted among non-blacks MDRD vol rate/area (S/P/Bld) 76 mL/min/{1.73_m2} Normal Comprehe nsive Internal Medicine Work Phone: Globulin Calculated mass conc (S) 3.3 g/dL Normal 2.7-4.2 [facility] Work Phone: Globulin mass conc (S) 3.3 g/dL Normal 2.7-4.2 Co m[facility] Work Phone: Glucose mass conc 97 mg/dL Normal 70-110 Compreh ensive Internal Medicine Work Phone: Potassium molar conc 3.6 mmol/L Normal 3.5-5.1 Comp rehensive Internal Medicine Work Phone: Protein mass conc 7.2 g/dL Normal 6.4-8.2 Compreh ensive Internal Medicine Work Phone: Sodium molar conc 138 mmol/L Normal 136-145 Compreh ensive Internal Medicine Work Phone: Triglyceride mass conc 292 mg/dL Abnormal 0-199 Co m[facility] Work Phone: Comment on above: Serum Triglycerides Reference IntervalNormal <150 mg/dLBorderline high 150 - 199 mg/dLHigh 200 - 499 mg/dLVery High > or = 500 mg/dL Urea nitrogen mass conc 13 mg/dL Normal 7-18 [facility] Work Phone: EMP 206 U/L Normal 84-246 [facility] Work Phone: EMP 58 mg/dL Abnormal 5-40 [facility] Work Phone: EMP 28 mg/dL Abnormal [facility] Work Phone: Comment on above: Reference RangeHDL < 40 mg/dL Low HDL CholesterolHDL >or= 60 mg/dL High HDL Cholesterol EMP 7 1 Normal 5-15 [facility] Work Phone: EMP 0.10 mg/dL Normal 0.00-0.30 [facility] Work Phone: EMP 0.70 mg/dL Normal 0.00-1.00 [facility] Work Phone: EMP 79 U/L Normal 45-117 [facility] Work Phone: EMP 2.3 mg/dL Abnormal 2.5-4.9 [facility] Work Phone: EMP 9.1 mg/dL Abnormal 3.5-7.2 [facility] Work Phone: EMP 11.8 {RATIO} Normal 10-20 Comprehensiv e Internal Medicine Work Phone: EMP 92 mL/min Normal [facility] Work Phone: UAEMOrdered By: System Manag er on 02-25-2014 UAEM Normal Normal [facility] Work Phone: UAEM Clear Normal [facility] Work Phone: UAEM Yellow Normal [facility] Work Phone: UAEM Negative Normal [facility] Work Phone: UAEM 5.0 1 Normal 5.0 - 8.0 [facility] Work Phone: UAEM 1.015 1 Normal 1.002-1.03 0 [facility] Work Phone: LIPIDOrdered By: System Adriana kris on 07-08-2013 Cholesterol in HDL mass conc 30 mg/dL Abnormal [facility] Work Phone: Comment on above: Reference RangeHDL < 40 mg/dL Low HDL CholesterolHDL >or= 60 mg/dL High HDL Cholesterol Cholesterol in LDL mass conc 102 mg/dL Normal 0-130 [facility] Work Phone: Cholesterol mass conc 192 mg/dL Normal Com prehensive [facility] Medicine Work Phone: Comment on above: <200 mg/dL Desirable 200-240 mg/dL Borderline>240 mg/dL High Risk Triglyceride mass conc 298 mg/dL Abnormal 0-199 Co mprehensive [facility] Work Phone: Comment on above: Serum Triglycerides Reference IntervalNormal <150 mg/dLBorderline high 150 - 199 mg/dLHigh 200 - 499 mg/dLVery High > or = 500 mg/dL LIPID 60 mg/dL Abnormal 5-40 [facility] Work Phone: LIVEROrdered By: System [employer] on 07-08-2013 Albumin mass conc 4.1 g/dL Normal 3.4-5.0 Compreh ensive Internal Medicine Work Phone: ALP enzyme act/vol 92 U/L Normal 50-136 Compre hensive Internal Medicine Work Phone: ALT enzyme act/vol 58 U/L Normal 12-78 Compre hensive [facility] Work Phone: AST enzyme act/vol 38 U/L Abnormal 15-37 Compre hensive [facility] Medicine Work Phone: Protein mass conc 7.5 g/dL Normal 6.4-8.2 Compreh ensive Internal Medicine Work Phone: LIVER 0.18 mg/dL Normal 0.00-0.30 [facility] Work Phone: LIVER 0.70 mg/dL Normal 0.00-1.00 [facility] Work Phone: PSAOrdered By: System Pandorama r on 07-11-2012 Prostate specific Ag mass conc 1.14 ng/mL Normal 0.00-4.00 [facility] Work Phone: No Panel Information Nasal Screen MRSA/MSSA [facility] Work Phone: Vital Signs Date Time Vital Sign Value Performing Clinician Facility 05-22-2023 13:47-0400 Body height 180.34 cm Brendon Landry LPN [facility]; [facility] Work Phone: 05-22-2023 13:47-0400 Body mass index (BMI) [Ratio] 41.35 kg/m2 [facility]; [facility] Work Phone: 05-22-2023 13:47-0400 Body surface area Derived from formula 2.49 m2 [facility]; [facility] Work Phone: 05-22-2023 13:47-0400 Body temperature 97.6 [degF] [facility]; [facility] Work Phone: 05-22-2023 13:47-0400 Body weight 134.49 kg [facility]; [facility] Work Phone: 05-22-2023 13:47-0400 Diastolic blood pressure 72 mm[Hg] [facility]; [facility] Work Phone: Comment on above: Patient Position: Sitting; Cuff Location : Left Arm; Cuff Size: Standard 05-22-2023 13:47-0400 Heart rate 83 /min [facility]; [facility] Work Phone: Comment on above: Pattern: Regular 05-22-2023 13:47-0400 Respiratory rate 18 /min [facility]; [facility] Work Phone: Comment on above: Pattern: Unlabored 05-22-2023 13:47-0400 SaO2% (BldA) [Mass fraction] 96 % [facility]; [facility] Work Phone: Comment on above: Room air 05-22-2023 13:47-0400 Systolic blood pressure 134 mm[Hg] [facility]; [facility] Work Phone: Comment on above: Patient Position: Sitting; Cuff Location : Left Arm; Cuff Size: Standard 04-20-2022 11:28-0400 Body height 180.34 cm [facility]; [facility] Work Phone: 04-20-2022 11:28-0400 Body mass index (BMI) [Ratio] 42.68 kg/m2 Yissel Milan [facility]; [facility] Work Phone: 04-20-2022 11:28-0400 Body surface area Derived from formula 2.53 m2 Yissel Milan [facility]; [facility] Work Phone: 04-20-2022 11:28-0400 Body temperature 97.3 [degF] Yissel Milan [facility]; [facility] Work Phone: Comment on above: Method: Infrared 04-20-2022 11:28-0400 Body weight 138.8 kg Yissel Milan [facility]; [facility] Work Phone: 04-20-2022 11:28-0400 Diastolic blood pressure 70 mm[Hg] Yissel Milan [facility]; [facility] Work Phone: Comment on above: Patient Position: Sitting; Cuff Location : Left Arm; Cuff Size: Standard 04-20-2022 11:28-0400 Heart rate 75 /min Yissel Milan [facility]; [facility] Work Phone: Comment on above: Pattern: Regular 04-20-2022 11:28-0400 Respiratory rate 18 /min Yissel Milan [facility]; [facility] Work Phone: Comment on above: Pattern: Unlabored 04-20-2022 11:28-0400 SaO2% (BldA) [Mass fraction] 97 % Yissel Milan [facility]; [facility] Work Phone: Comment on above: Room air 04-20-2022 11:28-0400 Systolic blood pressure 152 mm[Hg] Yissel Milan [facility]; [facility] Work Phone: Comment on above: Patient Position: Sitting; Cuff Location : Left Arm; Cuff Size: Standard 03-21-2022 12:56-0400 Body temperature 97.6 [degF] Dr. Birgit Mcclelland Work Phone: [facility] Work Phone: 03-21-2022 12:56-0400 Diastolic blood pressure 67 mm[Hg] Dr. Birgit Mcclelland Work Phone: [facility] Work Phone: 03-21-2022 12:56-0400 Heart rate 75 /min Dr. Birgit Mcclelland Work Phone: [facility] Work Phone: 03-21-2022 12:56-0400 Respiratory rate 18 /min Dr. Birgit Mcclelland Work Phone: [facility] Work Phone: 03-21-2022 12:56-0400 SaO2% (BldA) [Mass fraction] 97 % Dr. Birgit Mcclelland Work Phone: [facility] Work Phone: 03-21-2022 12:56-0400 Systolic blood pressure 130 mm[Hg] Dr. Birgit Mcclelland Work Phone: [facility] Work Phone: 03-21-2022 06:25-0400 Body height 180.[address] Birgit Mcclelland Work Phone: [facility] Work Phone: 03-21-2022 06:25-0400 Body mass index (BMI) [Ratio] 42.4 kg/m2 Dr. Birgit Mcclelland Work Phone: [facility] Work Phone: 03-21-2022 06:25-0400 Body weight [address] Birgit Mcclelland Work Phone: [facility] Work Phone: 02-26-2022 10:03-0400 Body height 180.34 cm Yissel Milan CMA [facility]; [facility] Work Phone: 02-26-2022 10:03-0400 Body mass index (BMI) [Ratio] 42.68 kg/m2 Yissel Milan [facility]; [facility] Work Phone: 02-26-2022 10:03-0400 Body surface area Derived from formula 2.53 m2 Yissel Milan [facility]; [facility] Work Phone: 02-26-2022 10:03-0400 Body temperature 97.3 [degF] Yissel Milan [employer] [facility]; [facility] Work Phone: Comment on above: Method: Infrared 02-26-2022 10:03-0400 Body weight 138.8 kg Yissel Milan [facility]; [facility] Work Phone: 02-26-2022 10:03-0400 Diastolic blood pressure 78 mm[Hg] Yissel Milan [facility]; [facility] Work Phone: Comment on above: Patient Position: Sitting; Cuff Location : Left Arm; Cuff Size: Standard 02-26-2022 10:03-0400 Heart rate 89 /min Yissel Milan [facility]; [facility] Work Phone: Comment on above: Pattern: Regular 02-26-2022 10:03-0400 Respiratory rate 18 /min Yissel Milan [facility]; [facility] Work Phone: Comment on above: Pattern: Unlabored 02-26-2022 10:03-0400 SaO2% (BldA) [Mass fraction] 96 % Yissel Milan [facility]; [facility] Work Phone: Comment on above: Room air 02-26-2022 10:03-0400 Systolic blood pressure 132 mm[Hg] Yissel Milan [facility]; [facility] Work Phone: Comment on above: Patient Position: Sitting; Cuff Location : Left Arm; Cuff Size: Standard 03-17-2021 14:15-0400 Body height 180.34 cm Yissel Milan [facility]; [facility] Work Phone: 03-17-2021 14:15-0400 Body mass index (BMI) [Ratio] 40.73 kg/m2 Yissel Milan [facility]; [facility] Work Phone: 03-17-2021 14:15-0400 Body surface area Derived from formula 2.48 m2 Yissel Milan [facility]; [facility] Work Phone: 03-17-2021 14:15-0400 Body temperature 97.1 [degF] Yissel Milan [facility]; [facility] Work Phone: Comment on above: Method: Infrared 03-17-2021 14:15-0400 Body weight 132.45 kg Yissel Milan [facility]; [facility] Work Phone: 03-17-2021 14:15-0400 Diastolic blood pressure 80 mm[Hg] Yissel Milan [facility]; [facility] Work Phone: Comment on above: Patient Position: Sitting; Cuff Location : Left Arm; Cuff Size: Standard 03-17-2021 14:15-0400 Heart rate 86 /min Yissel Milan [facility]; [facility] Work Phone: Comment on above: Pattern: Regular 03-17-2021 14:15-0400 Respiratory rate 18 /min Yissel Milan [facility]; [facility] Work Phone: Comment on above: Pattern: Unlabored 03-17-2021 14:15-0400 SaO2% (BldA) [Mass fraction] 93 % Yissel Milan [facility]; [facility] Work Phone: Comment on above: Room air 03-17-2021 14:15-0400 Systolic blood pressure 136 mm[Hg] Yissel Milan [facility]; [facility] Work Phone: Comment on above: Patient Position: Sitting; Cuff Location : Left Arm; Cuff Size: Standard 04-18-2020 15:12-0400 BMI (Body Mass Index) 40.17 kg/m2 Yissel Milan [facility] Work Phone: 04-18-2020 15:12-0400 Body Temperature 96.8 [degF] Yissel Milan CMA [facility] Work Phone: Comment on above: Method: Infrared 04-18-2020 15:12-0400 Body weight 130.64 kg Yissel Milan [facility] Work Phone: 04-18-2020 15:12-0400 BP Diastolic 80 mm[Hg] Yissel Milan [facility] Work Phone: Comment on above: Patient Position: Sitting; Cuff Location : Left Arm; Cuff Size: Standard 04-18-2020 15:12-0400 BP Systolic 126 mm[Hg] Yissel Milan [facility] Work Phone: Comment on above: Patient Position: Sitting; Cuff Location : Left Arm; Cuff Size: Standard 04-18-2020 15:120400 BSA (Body Surface Area) 2.46 m2 Yissel Milan [facility] Work Phone: 04-18-2020 15:12-0400 Height 180.34 cm Yissel Milan [facility] Internal Medicine Work Phone: 04-18-2020 15:12-0400 Pulse (Heart Rate) 88 /min Yissel Milan [facility] Work Phone: Comment on above: Pattern: Regular 04-18-2020 15:12-0400 Pulse Oximetry 97 % Birgit Mcclelland [facility] Internal Medicine Work Phone: Comment on above: Room air 04-18-2020 15:12-0400 Respiratory Rate 16 /min Yissel Milan [facility] Work Phone: Comment on above: Pattern: Unlabored 04-18-2020 15:12-0400 SaO2% (BldA) [Mass fraction] 97 % Yissel Milan [facility] Internal Medicine; [facility] Work Phone: Comment on above: Room air 09-09-2019 11:21-0500 BMI (Body Mass Index) 40.17 kg/m2 Yissel Milan [facility] Work Phone: 09-09-2019 11:21-0500 Body Temperature 96.7 [degF] Yissel Milan CMA [facility] Work Phone: Comment on above: Method: Temporal 09-09-2019 11:21-0500 Body weight 130.64 kg Yissel Milan [facility] Internal Medicine Work Phone: 09-09-2019 11:21-0500 BP Diastolic 92 mm[Hg] Yissel Milan [facility] Work Phone: Comment on above: Patient Position: Sitting; Cuff Location : Left Arm; Cuff Size: Standard 09-09-2019 11:21-0500 BP Systolic 138 mm[Hg] Yissel Milan [facility] Work Phone: Comment on above: Patient Position: Sitting; Cuff Location : Left Arm; Cuff Size: Standard 09-09-2019 11:21-0500 BSA (Body Surface Area) 2.46 m2 Yissel Milan [facility] Internal Medicine Work Phone: 09-09-2019 11:21-0500 Height 180.34 cm Yissel Milan [facility] Work Phone: 09-09-2019 11:21-0500 Pulse (Heart Rate) 81 /min Yissel Milan [facility] Internal Medicine Work Phone: Comment on above: Pattern: Regular 09-09-2019 11:21-0500 Pulse Oximetry 97 % Birgit Mcclelland [facility] Internal Medicine Work Phone: Comment on above: Room air 09-09-2019 11:21-0500 Respiratory Rate 16 /min Yissel Milan [facility] Internal Medicine Work Phone: Comment on above: Pattern: Unlabored 09-09-2019 11:21-0500 SaO2% (BldA) [Mass fraction] 97 % Yissel Milan [facility] Internal Medicine; [facility] Work Phone: Comment on above: Room air 04-01-2019 12:16-0400 BMI (Body Mass Index) 41 kg/m2 Yissel Milan [facility] Internal Medicine Work Phone: 04-01-2019 12:16-0400 Body Temperature 98.2 [degF] Yissel Milan [facility] Internal Medicine Work Phone: Comment on above: Method: Temporal 04-01-2019 12:16-0400 Body weight 133.36 kg Yissel Milan [facility] Internal Medicine Work Phone: 04-01-2019 12:16-0400 BP Diastolic 90 mm[Hg] Yissel Milan [facility] Internal Medicine Work Phone: Comment on above: Patient Position: Sitting; Cuff Location : Left Arm; Cuff Size: Standard 04-01-2019 12:16-0400 BP Systolic 140 mm[Hg] Yissel Milan [facility] Internal Medicine Work Phone: Comment on above: Patient Position: Sitting; Cuff Location : Left Arm; Cuff Size: Standard 04-01-2019 12:16-0400 BSA (Body Surface Area) 2.48 m2 Yissel Milan [facility] Internal Medicine Work Phone: 04-01-2019 12:16-0400 Height 180.34 cm Yissel Mialn [facility] Internal Medicine Work Phone: 04-01-2019 12:16-0400 Pulse (Heart Rate) 77 /min Yissel Milan [facility] Internal Medicine Work Phone: Comment on above: Pattern: Regular 04-01-2019 12:16-0400 Pulse Oximetry 97 % Birgit Stas [facility] Internal Medicine Work Phone: Comment on above: Room air 04-01-2019 12:16-0400 Respiratory Rate 18 /min Yissel Milan [facility] Internal Medicine Work Phone: Comment on above: Pattern: Unlabored 04-01-2019 12:16-0400 SaO2% (BldA) [Mass fraction] 97 % Yissel Milan [facility] Internal Medicine; [facility] Work Phone: Comment on above: Room air 03-12-2018 10:12-0400 BMI (Body Mass Index) 38.63 kg/m2 Mckenzie Curran RN [facility] Internal Medicine Work Phone: 03-12-2018 10:12-0400 Body Temperature 98.2 [degF] Mckenzie Curran RN [facility] Work Phone: Comment on above: Method: Temporal 03-12-2018 10:12-0400 Body weight 125.65 kg Mckenzie Curran RN [facility] Work Phone: 03-12-2018 10:12-0400 BP Diastolic 70 mm[Hg] Mckenzie Curran RN [facility] Work Phone: Comment on above: Patient Position: Sitting; Cuff Location : Left Arm; Cuff Size: Standard 03-12-2018 10:12-0400 BP Systolic 124 mm[Hg] Mckenzie Curran RN [facility] Work Phone: Comment on above: Patient Position: Sitting; Cuff Location : Left Arm; Cuff Size: Standard 03-12-2018 10:12-0400 BSA (Body Surface Area) 2.42 m2 Mckenzie Curran RN [facility] Work Phone: 03-12-2018 10:12-0400 Height 180.34 cm Mckenzie Curran RN [facility] Work Phone: 03-12-2018 10:12-0400 Pulse (Heart Rate) 117 /min Mckenzie Curran RN [facility] Work Phone: Comment on above: Pattern: Regular 03-12-2018 10:12-0400 Pulse Oximetry 97 % Birgit Stas [facility] Work Phone: Comment on above: Room air 03-12-2018 10:12-0400 Respiratory Rate 16 /min Mckenzie Curran RN [facility] Work Phone: Comment on above: Pattern: Unlabored 03-12-2018 10:12-0400 SaO2% (BldA) [Mass fraction] 97 % Mckenzie Curran RN [facility]; [facility] Work Phone: Comment on above: Room air 03-12-2018 10:12-0400 Weight 125.65 kg Birgit Pulidoon [facility] Work Phone: 02-26-2018 14:07-0400 BMI (Body Mass Index) 39.05 kg/m2 Fabiana Momin RN [facility] Work Phone: 02-26-2018 14:07-0400 Body Temperature 97 [degF] Fabiana Momin RN [facility] Work Phone: Comment on above: Method: Temporal 02-26-2018 14:07-0400 Body weight 127.01 kg Fabiana Momin RN [facility] Work Phone: 02-26-2018 14:07-0400 BP Diastolic 88 mm[Hg] Fabiana Momin RN [facility] Work Phone: Comment on above: Patient Position: Sitting; Cuff Location : Left Arm; Cuff Size: Large 02-26-2018 14:07-0400 BP Systolic 128 mm[Hg] Fabiana Momin RN [facility] Work Phone: Comment on above: Patient Position: Sitting; Cuff Location : Left Arm; Cuff Size: Large 02-26-2018 14:07-0400 BSA (Body Surface Area) 2.43 m2 Fabiana Momin RN [facility] Work Phone: 02-26-2018 14:07-0400 Height 180.34 cm Fabiana Momin RN [facility] Work Phone: 02-26-2018 14:07-0400 Pulse (Heart Rate) 93 /min Fabiana Momin RN [facility] Work Phone: Comment on above: Pattern: Regular 02-26-2018 14:07-0400 Pulse Oximetry 98 % Birgit Stas [facility] Work Phone: Comment on above: Room air 02-26-2018 14:07-0400 Respiratory Rate 18 /min Fabiana Momin RN [facility] Work Phone: Comment on above: Pattern: Unlabored 02-26-2018 14:07-0400 SaO2% (BldA) [Mass fraction] 98 % Fabiana Momin RN [facility]; [facility] Work Phone: Comment on above: Room air 02-26-2018 14:07-0400 Weight 127.01 kg Birgit Pulidoon [facility] Work Phone: 02-03-2018 10:01-0400 BMI (Body Mass Index) 39.33 kg/m2 Mckenzie Curran RN [facility] Internal Medicine Work Phone: Comment on above: [id number] 104sitting 117/97 119standin g 118/72 122 02-03-2018 10:01-0400 Body Temperature 102.9 [degF] Mckenzie Curran RN [facility] Work Phone: Comment on above: Method: Oral [id number] 104sitti ng 117/97 119standing 118/72 122 02-03-2018 10:01-0400 Body weight 127.92 kg Mckenzie Curran RN [facility] Work Phone: Comment on above: [id number] 104sitting 117/97 119standin g 118/72 122 02-03-2018 10:01-0400 BP Diastolic 82 mm[Hg] Mckenzie Curran RN [facility] Work Phone: Comment on above: Patient Position: Sitting; Cuff Location : Left Arm; Cuff Size: Standard [id number] 104sitti ng 117/97 119standing 118/72 122 02-03-2018 10:01-0400 BP Systolic 138 mm[Hg] Mckenzie Curran RN [facility] Work Phone: Comment on above: Patient Position: Sitting; Cuff Location : Left Arm; Cuff Size: Standard [id number] 104sitti ng 117/97 119standing 118/72 122 02-03-2018 10:01-0400 BSA (Body Surface Area) 2.44 m2 Mckenzie Curran RN [facility] Work Phone: Comment on above: [id number] 104sitting 117/97 119standin g 118/72 122 02-03-2018 10:01-0400 Height 180.34 cm Mckenzie Curran RN [facility] Work Phone: Comment on above: [id number] 104sitting 117/97 119standin g 118/72 122 02-03-2018 10:01-0400 Pulse (Heart Rate) 121 /min Mckenzie Curran RN [facility] Work Phone: Comment on above: Pattern: Regular /84 104sitti ng 117/97 119standing 118/72 122 02-03-2018 10:01-0400 Pulse Oximetry 96 % Birgit Mcclelland [facility] Work Phone: Comment on above: Room air [id number] 104sitti ng 117/97 119standing 118/72 122 02-03-2018 10:01-0400 Respiratory Rate 16 /min Mckenzie Curran RN [facility] Work Phone: Comment on above: Pattern: Unlabored [id number] 104sitti ng 117/97 119standing 118/72 122 02-03-2018 10:01-0400 SaO2% (BldA) [Mass fraction] 96 % Mckenzie Curran RN [facility]; [facility] Work Phone: Comment on above: Room air /84 104sitti ng 117/97 119standing 118/72 122 02-03-2018 10:01-0400 Weight 127.92 kg Birgit Mcclelland [facility] Internal Medicine Work Phone: Comment on above: [id number]/[email or web address] 104sitting 117/97 119standin g 118/72 122 03-22-2017 08:29-0400 BMI (Body Mass Index) 39.33 [facility] Work [facility]: 03-22-2017 08:29-0400 Body [facility] 127.92 [facility]: 03-22-2017 08:29-0400 BP Diastolic 78 mm[Hg] [facility] Work Phone: Comment on above: Patient Position: Sitting; Cuff Location : Left Arm; Cuff Size: Standard 03-22-2017 08:29-0400 BP Systolic 122 mm[Hg] [facility] Work Phone: Comment on above: Patient Position: Sitting; Cuff Location : Left Arm; Cuff Size: Standard 03-22-2017 08:29-0400 BSA (Body Surface Area) 2.44 m2 [facility] Work Phone: 03-22-2017 08:29-0400 Height 180.34 cm [facility] Internal Medicine Work Phone: 03-22-2017 08:29-0400 Pulse (Heart Rate) 72 /min Yue Mangenoveva [employer] [facility] Work Phone: Comment on above: Pattern: Regular 03-22-2017 08:29-0400 Pulse Oximetry 98 % Birgit Mcclelland [facility] Work Phone: Comment on above: Room air 03-22-2017 08:29-0400 Respiratory Rate 16 /min Yue Mangenoveva [facility] Work Phone: Comment on above: Pattern: Unlabored 03-22-2017 08:29-0400 SaO2% (BldA) [Mass fraction] 98 % Yue Erin [facility]; [facility] Work Phone: Comment on above: Room air 03-22-2017 08:29-0400 Weight 127.92 kg Birgit Mcclelland [facility] Work Phone: 03-08-2017 09:50-0400 BMI (Body Mass Index) 39.33 kg/m2 Fabiana Momin RN [facility] Work Phone: 03-08-2017 09:50-0400 Body weight 127.92 kg Fabiana Momin RN [facility] Work Phone: 03-08-2017 09:50-0400 BP Diastolic 80 mm[Hg] Fabiana Momin RN [facility] Work Phone: Comment on above: Patient Position: Sitting; Cuff Location : Left Arm; Cuff Size: Large 03-08-2017 09:50-0400 BP Systolic 148 mm[Hg] Fabiana Momin RN [facility] Work Phone: Comment on above: Patient Position: Sitting; Cuff Location : Left Arm; Cuff Size: Large 03-08-2017 09:50-0400 BSA (Body Surface Area) 2.44 m2 Fabiana Momin RN [facility] Work Phone: 03-08-2017 09:50-0400 Height 180.34 cm Fabiana Momin RN [facility] Work Phone: 03-08-2017 09:50-0400 Pulse (Heart Rate) 67 /min Fabiana Momin RN [facility] Work Phone: Comment on above: Pattern: Regular 03-08-2017 09:50-0400 Pulse Oximetry 97 % Birgit Mcclelland [facility] Work Phone: Comment on above: Room air 03-08-2017 09:50-0400 Respiratory Rate 18 /min Fabiana Momin RN [facility] Work Phone: Comment on above: Pattern: Unlabored 03-08-2017 09:50-0400 SaO2% (BldA) [Mass fraction] 97 % Fabiana Momin RN [facility]; [facility] Work Phone: Comment on above: Room air 03-08-2017 09:50-0400 Weight 127.92 kg Birgit Mcclelland [facility] Internal Medicine Work Phone: 12-25-2016 09:10-0400 BMI (Body Mass Index) 36.96 kg/m2 Kelin Aceves RN RN [facility] Work Phone: 12-25-2016 09:10-0400 Body Temperature 98.6 [degF] Kelin Aceves RN RN [facility] Work Phone: 12-25-2016 09:10-0400 BP Diastolic 77 mm[Hg] Kelin Aceves RN RN [facility] Work Phone: 12-25-2016 09:10-0400 BP Systolic 126 mm[Hg] Kelin Aceves RN RN [facility] Work Phone: 12-25-2016 09:10-0400 Pulse (Heart Rate) 82 /min Kelin Aceves RN RN [facility] Work Phone: 12-25-2016 09:10-0400 Pulse Oximetry 96 % Kelin Aceves RN RN [facility] Work Phone: 12-25-2016 09:10-0400 Weight 120.2 kg Kelin Aceves RN RN [facility] Work Phone: 11-02-2016 13:01-0400 BMI (Body Mass Index) 37.41 kg/m2 Fabiana Momin RN [facility] Work Phone: 11-02-2016 13:01-0400 Body weight 121.68 kg Fabiana Momin RN [facility] Work Phone: 11-02-2016 13:01-0400 BP Diastolic 88 mm[Hg] Fabiana Momin RN [facility] Work Phone: Comment on above: Patient Position: Sitting; Cuff Location : Left Arm; Cuff Size: Large 11-02-2016 13:01-0400 BP Systolic 158 mm[Hg] Fabiana Momin RN [facility] Work Phone: Comment on above: Patient Position: Sitting; Cuff Location : Left Arm; Cuff Size: Large 11-02-2016 13:-0400 BSA (Body Surface Area) 2.39 m2 Fabiana Momin RN [facility] Work Phone: 11-02-2016 13:01-0400 Height 180.34 cm Fabiana Momin RN [facility] Work Phone: 11-02-2016 13:01-0400 Pulse (Heart Rate) 92 /min Fabiana Momin RN [facility] Work Phone: Comment on above: Pattern: Regular 11-02-2016 13:01-0400 Pulse Oximetry 97 % Birgit Mcclelland [facility] Internal Medicine Work Phone: Comment on above: Room air 11-02-2016 13:01-0400 Respiratory Rate 18 /min Fabiana Momin RN [facility] Work Phone: Comment on above: Pattern: Unlabored 11-02-2016 13:01-0400 SaO2% (BldA) [Mass fraction] 97 % Fabiana Momin RN [facility]; [facility] Work Phone: Comment on above: Room air 11-02-2016 13:01-0400 Weight 121.68 kg Birgit Pulidoon [facility] Work Phone: 10-31-2016 08:15-0400 BMI (Body Mass Index) 37.66 kg/m2 Odalys carpenter Internal Medicine Work Phone: 10-31-2016 08:15-0400 Body weight 122.47 kg Odalys Caceres [facility] Internal [facility] Work Phone: 10-31-2016 08:15-0400 BP Diastolic 78 mm[Hg] Odalys Caceres [facility] Internal Medicine Work Phone: Comment on above: Patient Position: Sitting; Cuff Location : Left Arm; Cuff Size: Standard 10-31-2016 08:15-0400 BP Systolic 132 mm[Hg] Odalys Caceres [facility] Internal Medicine Work Phone: Comment on above: Patient Position: Sitting; Cuff Location : Left Arm; Cuff Size: Standard 10-31-2016 08:15-0400 BSA (Body Surface Area) 2.4 m2 Odalys Caceres [facility] Internal Medicine Work Phone: 10-31-2016 08:15-0400 Height 180.34 cm Odalys Caceres [facility] Internal [facility] Work Phone: 10-31-2016 08:15-0400 Pulse (Heart Rate) 83 /min Odalys Caceres [facility] Internal Medicine Work Phone: Comment on above: Pattern: Regular 10-31-2016 08:15-0400 Pulse Oximetry 97 % Birgit Mcclelland [facility] Internal Medicine Work Phone: Comment on above: Room air 10-31-2016 08:15-0400 Respiratory Rate 18 /min Odalys Caceres [facility] Internal Medicine Work Phone: Comment on above: Pattern: Unlabored 10-31-2016 08:15-0400 SaO2% (BldA) [Mass fraction] 97 % Odalys Cacrees [facility]; [facility] Work Phone: Comment on above: Room air 10-31-2016 08:15-0400 Weight 122.47 kg Birgit Mcclelland [facility] Work Phone: 09-05-2016 09:53-0500 BMI (Body Mass Index) 38.29 kg/m2 Lyle Copeland [facility] Work Phone: 09-05-2016 09:53-0500 Body Temperature 98.6 [degF] Lyle Copeland [facility] Work Phone: 09-05-2016 09:53-0500 BP Diastolic 82 mm[Hg] Lyle Copeland [facility] Work Phone: 09-05-2016 09:53-0500 BP Systolic 152 mm[Hg] Lyle Copeland [facility] Work Phone: 09-05-2016 09:53-0500 BSA (Body Surface Area) 2.42 m2 [facility] Work Phone: 09-05-2016 09:53-0500 Pulse (Heart Rate) 94 /min [facility] Work Phone: 09-05-2016 09:53-0500 Pulse Oximetry 99 % [facility] Work Phone: 09-05-2016 09:53-0500 Respiratory Rate 18 /min [facility] [place] Work Phone: 09-05-2016 09:53-0500 Weight 124.56 kg [facility] [place] Work Phone: 04-10-2016 13:32-0400 BMI (Body Mass Index) 38.37 kg/m2 Eboni Jansen LPN [facility] Work Phone: 04-10-2016 13:32-0400 Body Temperature 97.2 [degF] Eboni Tanyarb CECILY [facility] Work Phone: 04-10-2016 13:32-0400 Body weight 124.8 kg Eboni Slarb [employer] [facility] Work Phone: 04-10-2016 13:32-0400 BP Diastolic 82 mm[Hg] Eboni Slarb [employer] [facility] Internal Medicine Work Phone: Comment on above: Patient Position: Sitting; Cuff Location : Left Arm; Cuff Size: Standard 04-10-2016 13:32-0400 BP Systolic 124 mm[Hg] Eboni Slarb [employer] [facility] Work Phone: Comment on above: Patient Position: Sitting; Cuff Location : Left Arm; Cuff Size: Standard 04-10-2016 13:32-0400 BSA (Body Surface Area) 2.42 m2 Eboni Jansen [employer] [facility] Work Phone: 04-10-2016 13:32-0400 Height 180.34 cm Eboni Tanyarb [employer] [facility] Work Phone: 04-10-2016 13:32-0400 Pulse (Heart Rate) 90 /min Eboni Jansen [employer] [facility] Work Phone: Comment on above: Pattern: Regular 04-10-2016 13:32-0400 Pulse Oximetry 98 % Birgit Mcclelland [facility] Work Phone: Comment on above: Room air 04-10-2016 13:32-0400 Respiratory Rate 16 /min Eboni Tanyarb [employer] [facility] Work Phone: Comment on above: Pattern: Unlabored 04-10-2016 13:32-0400 SaO2% (BldA) [Mass fraction] 98 % Eboni Tanyarb [employer] [facility]; [facility] Work Phone: Comment on above: Room air 04-10-2016 13:32-0400 Weight 124.8 kg Birgit Mcclelland [facility] Work Phone: 03-07-2016 11:02-0400 Height 180.34 cm Lyle Olivierpp [facility] Work Phone: 03-04-2015 08:20-0400 BMI (Body Mass Index) 38.01 kg/m2 Eboni Martínezrb [employer] [facility] Internal [facility] Work Phone: 03-04-2015 08:20-0400 Body Temperature 97.8 [degF] Eboni Slarb [employer] [facility] Work Phone: 03-04-2015 08:20-0400 Body weight 123.61 kg Eboni Slarb [employer] [facility] Work Phone: 03-04-2015 08:20-0400 BP Diastolic 84 mm[Hg] Eboni Slarb [employer] [facility] Work Phone: Comment on above: Patient Position: Sitting; Cuff Location : Left Arm; Cuff Size: Standard 03-04-2015 08:20-0400 BP Systolic 134 mm[Hg] Eboni Jansen LPN [facility] Work Phone: Comment on above: Patient Position: Sitting; Cuff Location : Left Arm; Cuff Size: Standard 03-04-2015 08:20-0400 BSA (Body Surface Area) 2.41 m2 Eboni Jansen LPN [facility] Work Phone: 03-04-2015 08:20-0400 Height 180.34 cm Eboni Jansen LPN [facility] Work Phone: 03-04-2015 08:20-0400 Pulse (Heart Rate) 88 /min Eboni Jansen LPN [facility] Work Phone: Comment on above: Pattern: Regular 03-04-2015 08:20-0400 Pulse Oximetry 97 % Birgit Mcclelland [facility] Work Phone: Comment on above: Room air 03-04-2015 08:20-0400 Respiratory Rate 16 /min Eboni Jansen LPN [facility] Work Phone: Comment on above: Pattern: Unlabored 03-04-2015 08:20-0400 SaO2% (BldA) [Mass fraction] 97 % Eboni Jansen LPN [facility]; [facility] Work Phone: Comment on above: Room air 03-04-2015 08:20-0400 Weight 123.61 kg Birgit Mcclelland [facility] Work Phone: 10-29-2014 10:36-0400 BMI (Body Mass Index) 38.27 kg/m2 Birgit Mcclelland [facility] Work Phone: 10-29-2014 10:36-0400 Body Temperature 98.4 [degF] Birgit Mcclelland [facility] Work Phone: Comment on above: Method: Oral 10-29-2014 10:36-0400 Body weight 124.46 kg Birgit Mcclelland [facility] Work Phone: 10-29-2014 10:36-0400 BP Diastolic 80 mm[Hg] Birgit Mcclelland [facility] Work Phone: Comment on above: Patient Position: Sitting; Cuff Location : Left Arm; Cuff Size: Standard 10-29-2014 10:36-0400 BP Systolic 120 mm[Hg] Birgit Mcclelland [facility] Work Phone: Comment on above: Patient Position: Sitting; Cuff Location : Left Arm; Cuff Size: Standard 10-29-2014 10:36-0400 BSA (Body Surface Area) 2.41 m2 Birgit Mcclelland [facility] Work Phone: 10-29-2014 10:36-0400 Height 180.34 cm Birgit Mcclelland [facility] Work Phone: 10-29-2014 10:36-0400 Pulse (Heart Rate) 88 /min Birgit Mcclelland [facility] Work Phone: Comment on above: Pattern: Regular 10-29-2014 10:36-0400 Pulse Oximetry 98 % Birgit Mcclelland [facility] Work Phone: Comment on above: Room air 10-29-2014 10:36-0400 Respiratory Rate 16 /min Birgit Mcclelland [facility] Internal Medicine Work Phone: 10-29-2014 10:36-0400 SaO2% (BldA) [Mass fraction] 98 % Birgit Mcclelland DO Work Phone: [facility]; [facility] Work Phone: Comment on above: Room air 10-29-2014 10:36-0400 Weight 124.46 kg Birgit Mcclelland [facility] Internal [facility] Work Phone: 09-29-2014 09:00-0500 BMI (Body Mass Index) 38.27 kg/m2 Mckenzie Curran RN [facility] Internal Medicine Work Phone: 09-29-2014 09:00-0500 Body Temperature 98.4 [degF] Mckenzie Curran RN [facility] Work Phone: Comment on above: Method: Temporal 09-29-2014 09:00-0500 Body weight 124.46 kg Mckenzie Curran RN [facility] Work Phone: 09-29-2014 09:00-0500 BP Diastolic 88 mm[Hg] Mckenzie Curran RN [facility] Work Phone: Comment on above: Patient Position: Sitting; Cuff Location : Left Arm; Cuff Size: Standard 09-29-2014 09:00-0500 BP Systolic 160 mm[Hg] Mckenzie Curran RN [facility] Work Phone: Comment on above: Patient Position: Sitting; Cuff Location : Left Arm; Cuff Size: Standard 09-29-2014 09:00-0500 BSA (Body Surface Area) 2.41 m2 Mckenzie Curran RN [facility] Work Phone: 09-29-2014 09:00-0500 Height 180.34 cm Mckenzie Curran RN [facility] Work Phone: 09-29-2014 09:00-0500 Pulse (Heart Rate) 104 /min Mckenzie Curran RN [facility] Work Phone: Comment on above: Pattern: Regular 09-29-2014 09:00-0500 Pulse Oximetry 99 % Birgit Mcclelland [facility] Work Phone: Comment on above: Room air 09-29-2014 09:00-0500 Respiratory Rate 16 /min Mckenzie Curran RN [facility] Work Phone: Comment on above: Pattern: Unlabored 09-29-2014 09:00-0500 SaO2% (BldA) [Mass fraction] 99 % Mckenzie Curran RN [facility]; [facility] Work Phone: Comment on above: Room air 09-29-2014 09:00-0500 Weight 124.46 kg Birgit Mcclelland [facility] Work Phone: 04-14-2014 09:57-0400 BMI (Body Mass Index) 38.27 kg/m2 Fabiana Momin RN [facility] Work Phone: 04-14-2014 09:57-0400 Body weight 124.46 kg Fabiana Momin RN [facility] Work Phone: 04-14-2014 09:57-0400 BP Diastolic 78 mm[Hg] Fabiana Momin RN [facility] Work Phone: Comment on above: Patient Position: Sitting; Cuff Location : Left Arm; Cuff Size: Large 04-14-2014 09:57-0400 BP Systolic 136 mm[Hg] Fabiana Momin RN [facility] Work Phone: Comment on above: Patient Position: Sitting; Cuff Location : Left Arm; Cuff Size: Large 04-14-2014 09:57-0400 BSA (Body Surface Area) 2.41 m2 Fabiana Momin RN [facility] Work Phone: 04-14-2014 09:57-0400 Height 180.34 cm Fabiana Momin RN [facility] Work Phone: 04-14-2014 09:57-0400 Pulse (Heart Rate) 72 /min Fabiana Momin RN [facility] Work Phone: Comment on above: Pattern: Regular 04-14-2014 09:57-0400 Pulse Oximetry 98 % Birgit Mcclelland [facility] Work Phone: Comment on above: Room air 04-14-2014 09:57-0400 Respiratory Rate 18 /min Fabiana Momin RN [facility] Work Phone: Comment on above: Pattern: Unlabored 04-14-2014 09:57-0400 SaO2% (BldA) [Mass fraction] 98 % Fabiana Momin RN [facility]; [facility] Work Phone: Comment on above: Room air 04-14-2014 09:57-0400 Weight 124.46 kg Birgit Stas [facility] Work Phone: 04-09-2013 07:59-0400 BMI (Body Mass Index) 37.14 kg/m2 Fabiana Momin RN [facility] Work Phone: 04-09-2013 07:59-0400 Body Temperature 98.2 [degF] Fabiana Momin RN [facility] Work Phone: Comment on above: Method: Oral 04-09-2013 07:59-0400 Body weight 120.8 kg Fabiana Momin RN [facility] Work Phone: 04-09-2013 07:59-0400 BP Diastolic 78 mm[Hg] Fabiana Momin RN [facility] Work Phone: Comment on above: Patient Position: Sitting; Cuff Location : Left Arm; Cuff Size: Large 04-09-2013 07:59-0400 BP Systolic 132 mm[Hg] Fabiana Momin RN [facility] Work Phone: Comment on above: Patient Position: Sitting; Cuff Location : Left Arm; Cuff Size: Large 04-09-2013 07:59-0400 BSA (Body Surface Area) 2.38 m2 Fabiana Momin RN [facility] Work Phone: 04-09-2013 07:59-0400 Height 180.34 cm Fabiana Momin RN [facility] Work Phone: 04-09-2013 07:59-0400 Pulse (Heart Rate) 68 /min Fabiana Momin RN [facility] Work Phone: Comment on above: Pattern: Regular 04-09-2013 07:59-0400 Respiratory Rate 18 /min Fabiana Momin RN [facility] Work Phone: Comment on above: Pattern: Unlabored 04-09-2013 07:59-0400 Weight 120.8 kg Birgit Mcclelland [facility] Internal Medicine Work Phone: 07-25-2012 08:25-0500 BMI (Body Mass Index) 36.4 kg/m2 Birgit Mcclelland [facility] Internal Medicine Work Phone: 07-25-2012 08:25-0500 Body Temperature 98.4 [degF] Birgit Mcclelland [facility] Internal Medicine Work Phone: Comment on above: Method: Oral 07-25-2012 08:25-0500 Body weight 118.39 kg Birgit Mcclelland [facility] Work Phone: 07-25-2012 08:25-0500 BP Diastolic 78 mm[Hg] Birgit Mcclelland [facility] Work Phone: Comment on above: Patient Position: Sitting; Cuff Location : Left Arm; Cuff Size: Standard 07-25-2012 08:25-0500 BP Systolic 126 mm[Hg] Birgit Mcclelland [facility] Work Phone: Comment on above: Patient Position: Sitting; Cuff Location : Left Arm; Cuff Size: Standard 07-25-2012 08:25-0500 BSA (Body Surface Area) 2.36 m2 Birgit Mcclelland [facility] Work Phone: 07-25-2012 08:25-0500 Height 180.34 cm Birgit Mcclelland [facility] Work Phone: 07-25-2012 08:25-0500 Pulse (Heart Rate) 83 /min Birgit Mcclelland [facility] Work Phone: Comment on above: Pattern: Regular 07-25-2012 08:25-0500 Pulse Oximetry 98 % Birgit Mcclelland [facility] Work Phone: Comment on above: Room air 07-25-2012 08:25-0500 SaO2% (BldA) [Mass fraction] 98 % Birgit Mcclelland DO Work Phone: [facility]; [facility] Work Phone: Comment on above: Room air 07-25-2012 08:25-0500 Weight 118.39 kg Birgit Mcclelland [facility] Work Phone: 03-06-2012 11:49-0400 BMI (Body Mass Index) 36.4 kg/m2 Fabiana Momin RN [facility] Work Phone: 03-06-2012 11:49-0400 Body weight 118.39 kg Fabiana Momin RN [facility] Work Phone: 03-06-2012 11:49-0400 BP Diastolic 88 mm[Hg] Fabiana Momin RN [facility] Work Phone: Comment on above: Patient Position: Sitting; Cuff Location : Left Arm; Cuff Size: Large 03-06-2012 11:49-0400 BP Systolic 122 mm[Hg] Fabiana Momin RN [facility] Work Phone: Comment on above: Patient Position: Sitting; Cuff Location : Left Arm; Cuff Size: Large 03-06-2012 11:49-0400 BSA (Body Surface Area) 2.36 m2 Fabiana Momin RN [facility] Work Phone: 03-06-2012 11:49-0400 Height 180.34 cm Fabiana Momin RN [facility] Work Phone: 03-06-2012 11:49-0400 Pulse (Heart Rate) 80 /min Fabiana Momin RN [facility] Work Phone: Comment on above: Pattern: Regular 03-06-2012 11:49-0400 Respiratory Rate 20 /min Fabiana Momin RN [facility] Work Phone: 03-06-2012 11:49-0400 Weight 118.39 kg Birgit Mcclelland [facility] Work Phone: 04-26-2011 11:44-0400 BMI (Body Mass Index) 36.4 kg/m2 Elizabeth Gunderson RN [facility] Internal Medicine Work Phone: 04-26-2011 11:44-0400 Body Temperature 98.1 [degF] Elizabeth Gunderson RN [facility] Work Phone: Comment on above: Method: Oral 04-26-2011 11:44-0400 Body weight 118.39 kg Elizabeth Gunderson RN [facility] Work Phone: 04-26-2011 11:44-0400 BP Diastolic 86 mm[Hg] Elizabeth Gunderson RN [facility] Work Phone: Comment on above: Patient Position: Sitting; Cuff Location : Left Arm; Cuff Size: Large 04-26-2011 11:44-0400 BP Systolic 122 mm[Hg] Elizabeth Gunderson RN [facility] Work Phone: Comment on above: Patient Position: Sitting; Cuff Location : Left Arm; Cuff Size: Large 04-26-2011 11:44-0400 BSA (Body Surface Area) 2.36 m2 Elizabeth Gunderson RN [facility] Work Phone: 04-26-2011 11:44-0400 Height 180.34 cm Elizabeth Gunderson RN [facility] Work Phone: 04-26-2011 11:44-0400 Pulse (Heart Rate) 76 /min Elizabeth Gunderson RN [facility] Work Phone: Comment on above: Pattern: Regular 04-26-2011 11:44-0400 Respiratory Rate 16 /min Elizabeth Gunderson RN [facility] Work Phone: Comment on above: Pattern: Unlabored 04-26-2011 11:44-0400 Weight 118.39 kg Birgit Mcclelland [facility] Work Phone: 12-17-2008 08:45-0400 BMI (Body Mass Index) 36.57 kg/m2 Fabiana Momin RN [facility] Work Phone: 12-17-2008 08:45-0400 Body weight 118.93 kg Fabiana Momin RN [facility] Work Phone: 12-17-2008 08:45-0400 BP Diastolic 78 mm[Hg] Fabiana Momin RN [facility] Work Phone: Comment on above: Patient Position: Sitting; Cuff Location : Left Arm; Cuff Size: Large 12-17-2008 08:45-0400 BP Systolic 158 mm[Hg] Fabiana Momin RN [facility] Work Phone: Comment on above: Patient Position: Sitting; Cuff Location : Left Arm; Cuff Size: Large 12-17-2008 08:45-0400 BSA (Body Surface Area) 2.37 m2 Fabiana Momin RN [facility] Work Phone: 12-17-2008 08:45-0400 Head Circumference 0 cm Birgit Mcclelland [facility] Work Phone: 12-17-2008 08:45-0400 Head Occipital-frontal circumference 0 cm Fabiana Momin RN [facility]; [facility] Work Phone: 12-17-2008 08:45-0400 Height 180.34 cm Fabiana Momin RN [facility] Work Phone: 12-17-2008 08:45-0400 Pulse (Heart Rate) 72 /min Fabiana Momin RN [facility] Work Phone: Comment on above: Pattern: Regular 12-17-2008 08:45-0400 Respiratory Rate 20 /min Fabiana Momin RN [facility] Work Phone: Comment on above: Pattern: Unlabored 12-17-2008 08:45-0400 Weight 118.93 kg Birgit Mcclelland [facility] Work Phone: Encounters Encounter Date Encounter Type Care Provider Facility Start: 03-31-2025 Registered Referred HEALTH RIS K ASSESSMENT -Employee Health Start: 03-31-2025 End: 03-31-[address] Birgit Mcclelland DO Work Phone: -Laboratory Start: 03-31-2025 End: 03-31-[address] Birgit Mcclelland DO -Laboratory Work Phone: Start: 03-31-2025 End: 03-31-2025 ambulatory Birgit Mcclelland Facility:[facility] Start: 11-02-2024 End: 11-02-[address] Birgit Mcclelland DO Work Phone: [facility] Work Phone: Start: 11-02-2024 End: 11-02-[address] Birgit Mcclelland DO -Laboratory Work Phone: Start: 11-02-2024 End: 11-02-2024 ambulatory Birgit Mcclelland Facility:[facility] Start: 07-13-2024 End: 07-13-2024 ambulatory Birgit Mcclelland Facility:[facility] Start: 05-15-2024 ambulatory Health Risk Assessment Facility:[facility] Start: 09-25-2023 End: 09-25-2023 ambulatory [facility] Work Phone: Start: 09-25-2023 End: 09-25-2023 Discharged Recurring [facility]-Physical Therapy Work Phone: Start: 08-23-2023 End: 08-23-2023 ambulatory [facility] Work Phone: Start: 08-23-2023 End: 08-23-2023 Patient encounter procedure [facility]-Radiology, [facility] Work Phone: Start: 08-16-2023 End: 08-16-2023 ambulatory [facility] Work Phone: Start: 08-16-2023 End: 08-16-2023 Patient encounter procedure [facility]-Laboratory Work Phone: Start: 06-21-2023 End: 06-21-2023 ambulatory [facility] Work Phone: Start: 06-21-2023 End: 06-21-2023 Patient encounter procedure [facility]-Laboratory Work Phone: Start: 05-22-2023 End: 05-22-2023 Patient encounter status Brendon Landry CECILY [facility]; [facility] Work Phone: Start: 05-22-2023 End: 05-22-2023 Periodic preventive med est patient 40-64yrs Birgit Mcclelland DO Work Phone: [facility] Start: 05-14-2023 Registered Referred [facility]-Employee Health Start: 04-20-2022 End: 04-20-2022 Patient encounter status Yissel Milan CMA [facility]; [facility] Work Phone: Start: 04-20-2022 End: 04-20-2022 Periodic preventive med est patient 40-64yrs Birgit Mcclelland DO Work Phone: [facility] Start: 04-05-2022 End: 04-05-[address] Brigit Mcclelland Work Phone: [facility] Work Phone: Start: 04-05-2022 End: 04-05-[address] Birgit Mcclelland Work Phone: [facility]-Radiology, [facility] Start: 03-21-2022 End: 03-21-2022 Admission to same day surgery center Dr. Birgit Mcclelland Work Phone: [facility]-Surgical Day Care Start: 03-02-2022 End: 03-02-2022 Patient encounter procedure [facility]-Cat Scan, [facility] Start: 03-01-2022 Non-patient / Non-visit Dr. Heladio Mcclelland Work Phone: [facility] Start: 02-26-2022 End: 02-26-2022 Office outpatient new 30 minutes Birgit Mcclelland DO Work Phone: [facility] Start: 02-26-2022 End: 02-26-2022 Preoperative state Birgit Pulidoon DO Work Phone: [facility] Start: 02-26-2022 Review Birgit Pulidoo n DO Work Phone: [facility] Start: 03-17-2021 End: 03-17-2021 Patient encounter procedure Birgit Pulidoon DO Work Phone: [facility]; [facility] Work Phone: Start: 03-17-2021 End: 03-17-2021 Periodic preventive med est patient 40-64yrs Birgit Mcclelland DO Work Phone: [facility] Start: 04-18-2020 End: 04-18-2020 Patient encounter status Birgit Pulidoon DO Work Phone: [facility]; [facility] Work Phone: Start: 04-18-2020 End: 04-18-2020 Periodic preventive med est patient 40-64yrs Birgit Pulidoon [facility] Start: 04-18-2020 Review Birgit Stas [facility] Start: 04-11-2020 End: 04-11-2020 Lab Order Birgit Stas [facility] Start: 09-09-2019 End: 09-09-2019 Lab Order Birgit Stas [facility] Start: 09-09-2019 End: 09-09-2019 Office outpatient visit 15 minutes Birgit Mcclelland [facility] Start: 04-01-2019 End: 04-01-2019 Phone Encounter Birgit Stas [facility] Start: 04-01-2019 End: 04-01-2019 Patient encounter procedure Birgit Stas DO Work Phone: [facility]; [facility] Work Phone: Start: 04-01-2019 End: 04-01-2019 Periodic preventive med est patient 40-64yrs Birgit Mcclelland [facility] Start: 11-28-2018 End: 12-02-2018 Ophthalmic examination and evaluation Birgit Mcclelland DO Work Phone: [facility] Start: 11-28-2018 End: 12-02-2018 Phone Encounter Birgit Mcclelland [facility] Start: 11-28-2018 [facility] Start: 03-12-2018 End: 03-12-2018 Patient encounter status Birgit Mcclelland DO Work Phone: [facility]; [facility] Work Phone: Start: 03-12-2018 End: 03-12-2018 Periodic preventive med est patient 40-64yrs Birgit Mcclelland [facility] Start: 02-28-2018 Patient encounter [facility] Start: 02-26-2018 End: 02-26-2018 Office outpatient visit 25 minutes Birgit Mcclelland [facility] Start: 02-11-2018 End: 02-11-2018 Lab Order Birgit Mcclelland [facility] Start: 02-07-2018 End: 02-07-2018 Annotation/Addendum Birgit Mcclelland [facility] Start: 02-03-2018 End: 02-03-2018 Phone Encounter Birgit Mcclelland [facility] Start: 02-03-2018 End: 02-03-2018 Office outpatient visit 15 minutes Birgit Mcclelland [facility] Start: 03-22-2017 End: 03-22-2017 Office outpatient visit 10 minutes Birgit Mcclelland [facility] Start: 03-08-2017 End: 03-08-2017 Patient encounter procedure Birgit Mcclelland DO Work Phone: [facility] Start: 03-08-2017 End: 03-08-2017 Periodic preventive med est patient 40-64yrs Birgit Mcclelland [facility] Start: 11-02-2016 End: 11-02-2016 Office outpatient visit 15 minutes Birgit Mcclelland [facility] Start: 10-31-2016 End: 10-31-2016 Office outpatient visit 25 minutes Birgit Mcclelland [facility] Start: 04-10-2016 End: 04-10-2016 Office outpatient visit 15 minutes Birgitcatrachita Mcclelland [facility] Start: 04-10-2016 End: 04-10-2016 Patient encounter status Birgit Mcclelland DO Work Phone: [facility] Start: 03-16-2015 End: 03-16-2015 Phone Encounter Birgit Mcclelland [facility] Start: 03-04-2015 End: 03-04-2015 Annotation/Addendum Birgitcatrachita Mcclelland [facility] Start: 03-04-2015 End: 03-04-2015 Office outpatient visit 25 minutes Birgit Stas [facility] Start: 10-29-2014 End: 10-29-2014 Office outpatient visit 15 minutes Birgitkeiko Mcclelland [facility] Start: 09-29-2014 End: 09-29-2014 Office outpatient visit 15 minutes Birgitcatrachita Mcclelland [facility] Start: 09-29-2014 End: 09-29-2014 Office outpatient visit 15 minutes Birgit Stas [facility] Start: 04-14-2014 End: 04-14-2014 Office outpatient visit 15 minutes Birgitcatrachita Mcclelland [facility] Start: 04-14-2014 End: 04-14-2014 Patient encounter status Birgit Mcclelland DO Work Phone: [facility] Start: 04-09-2013 End: 04-09-2013 Patient encounter Birgit Mcclelland [facility] Start: 04-09-2013 End: 04-09-2013 Patient encounter status Birgit Mcclelland DO Work Phone: [facility] Start: 07-25-2012 End: 07-25-2012 Office outpatient visit 25 minutes Birgitcatrachita Mcclelland [facility] Start: 03-06-2012 End: 03-07-2012 Patient encounter Birgit Mcclelland [facility] Start: 03-06-2012 End: 03-07-2012 Patient encounter status Birgit Mcclelland DO Work Phone: [facility] Start: 04-26-2011 End: 04-26-2011 Patient encounter Birgitcatrachita Mcclelland [facility] Start: 12-23-2008 End: 12-23-2008 Historical Summary Birgitkeiko Mcclelland [facility] Start: 12-17-2008 End: 12-17-2008 Office outpatient new 20 minutes Birgit Mcclelland [facility] Ophthalmic examinati on and evaluation Yissel Gravius [facility]; [facility] Work Phone: Ophthalmic examinati on and evaluation Yissel Gravius [employer] [facility]; [facility] Work Phone: Ophthalmic examinati on and evaluation Yissel Gravius [employer] [facility]; [facility] Work Phone: Ophthalmic examinati on and evaluation Yissel Gravius [employer] [facility]; [facility] Work Phone: Ophthalmic examinati on and evaluation [place] [employer] [facility]; [facility] Work Phone: Patient encounter procedure Yissel Gravius [facility]; [facility] Work Phone: Patient encounter procedure Yissel Ibrahimaius [facility]; [facility] Work Phone: Patient encounter procedure Yissel Alexandraius [facility]; [facility] Work Phone: Patient encounter procedure [place] [employer] [facility]; [facility] Work Phone: Patient encounter status Faibana Momin RN [facility]; [facility] Work Phone: Patient encounter status Fabiana Momin RN [facility]; [facility] Work Phone: Patient encounter status Yissel Milan [facility]; [facility] Work Phone: Patient encounter status Yissel Milan [facility]; [facility] Work Phone: Preoperative state Birgit Pulido on DO Work Phone: [facility]; [facility] Work Phone: Preoperative state Yissel Milan [facility] prehensive Internal Medicine; [facility] Work Phone: Preoperative state [place] [employer] [facility] ehensive Internal Medicine; [facility] Work Phone: Procedures Date Procedure Procedure Detail Performing Clinician Start: 03-31-[address] Birgit Mcclelland DO Work Phone: Start: 08-23-2023 Plain X-ray of shoulder Start: 04-05-2022 End: 04-06-2022 Knee 4 or More Views Procedure Note: See Note; NOTES: [facility] Imaging Services [address] [place] [address] Knee 4 or More Views MR#: [id number] Acct: [id number] Name: SHERMAN CORONEL Rep #: [id number] : 1965 M [id number] From: Shirin Portillo MD PCP: Dr. Birgit Mcclelland DO Status: REG CLI Study: Knee 4 or More Views Date of Exam: 04/05/22 Exam# [id number] Ordering Dr: Bhavin Barger PA-C EXAM: XR RIGHT KNEE COMPLETE, 4 OR MORE VIEWS CLINICAL INDICATION: AFTERCARE TECHNIQUE: Four or more views of the right knee. This report was created using ED01 report generation technology. COMPARISON: None. FINDINGS: BONES/JOINTS: [...] Signed: Shirin Portillo MD at 2:22 EDT , CC: SONYA Barger; Dr. Birgit Mcclelland DO Hand Sign Writer: Signed Birgit Mcclelland DO Work Phone: Start: 04-05-2022 Radiologic examination of knee Dr. Birgit Mcclelland Work Phone: Start: 03-21-2022 End: 03-21-2022 Knee 1 or 2 Views Procedure Note: See Note; NOTES: [facility] Imaging Services [address] [place] [address] Knee 1 or 2 Views MR#: [id number] Acct: [id number] Name: SHERMAN CORONEL Rep #: [id number] : 1965 M [id number] From: Owen Couch MD PCP: Dr. Birgit Mcclelland DO Status: [facility] Study: Knee 1 or 2 Views Date of Exam: 03/21/22 Exam# [id number] Ordering Dr: Nikolas Maher MD INDICATION: tka [...] 11:11 EDT Reading Location ID and State: [facility] / [place] Tel , Service support , CC: Dr. Birgit Mcclelland DO; Dr. Nikolas Maher MD Hand Sign Writer: Signed Birgit Mcclelland DO Work Phone: Start: 03-21-2022 Radiologic examination of knee Dr. Birgit Mcclelland Work Phone: Start: 03-21-[address] Birgit Mcclelland Work Phone: Start: 03-21-2022 End: 03-21-2022 Operative Report Procedure Note: See Note; NOTES: [place] [facility] Medical Records Department [address] [place] [address] Operative Report 03/21/22 0715 MR#: [id number] Acct: [id number] Name: SHERMAN CORONEL Rep #: [id number] : 1965 56 From: Nikolas Maher MD PCP: Dr. Birgit Mcclelland, DO Status:[facility] Location: [place] [address] Report of Operation Date of Procedure: 03/21/22 Pre-Operative Diagnosis: Right knee primary osteoarthritis Post-Operative Diagnosis: Right knee primary osteoarthritis Surgery/Procedure Performed:: Right medial unicompartmental knee replacement Description of Surgical Findings:: Patellofemoral and lateral compartments were appropriate with minimal wear. Stable knee. Surgeon: Nikolas Maher collections rep: Bhavin Barger Type of Anesthesia: General Anesthesiologist: [...] protected during all bony cuts by my bacteriology research assistant. Once the final components were placed [...] then awakened from anesthesia, [facility] and transferred to the PACU for [...] the course of the procedure the physician crop grain or livestock farm manager (PE) played a vital role. Their intimate [...] KAROL Hose VTE Pharm Prophylaxis ordered?: Yes 03/21/22 30 <Electronically signed by Nikolas Maher MD> Cosigner Signature (if applicable): CC: Dr. Birgit Mcclelland DO; Dr. Nikolas Maher MD Signed Birgit Mcclelland DO Work Phone: Start: 03-05-2022 End: 03-21-2022 History and Physical Exam Comments: See Note; NOTES: [facility] Medical Records Department [address] [place] [address] History Physical Exam 03/05/2244 MR#: [id number] Acct: [id number] Name: SHERMAN CORONEL Rep #: [id number] : 1965 56 From: Bhavin ANN PA-C PCP: Dr. Birgit Mcclelland, DO Status:PRE [facility] Location: [facility] History and Physical History and Physical [facility] Patient Name: Sherman Coronel : 1965 From:??? BHAVIN BARGER PA-C??? DATE OF SURGERY:??? 03/21/2022 SCHEDULED PROCEDURE:??? right partial knee replacement versus total knee arthroplasty HISTORY OF PRESENT ILLNESS: This is a 56-year-old male who has been having ongoing pain since 2020 with his right knee.??? 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 Personal Habits:??? [...] one(1) tablet daily., Vitamin D3 50 mcg (1999 Ut) 1 by mouth every day PRE-OP [...] changes. ___??? Dictated on admission Date: ?Time: _ Signature: 03/05/22 0744 <Electronically signed by Bhavin ANN PA-C> Cosigner Signature (if applicable): CC: SONYA Barger; Dr. Birgit Mcclelland, DO Signed Birgit Mcclelland DO Work Phone: Start: 03-02-2022 End: 03-02-2022 Extremity Lower without Contra Comments: See Note; NOTES: [facility] Imaging Services [address] [address] Extremity Lower without Contra MR#: [id number] Acct: [id number] Name: SHERMAN CORONEL Rep #: [id number] : 1965 M 56 From: Vince Valenzuela PCP: Dr. Birgit Mcclelland DO Status: REG CLI Study: Extremity Lower without Contra Date of Exam: 0 03/02/22 Exam# [id number] Ordering Dr: Nikolas Maher MD EXAM: CT [...] reconstruction technique. This report was created using ED01 report generation technology. RADIATION DOSE: CTDIvol = 18.97 mGy, [...] Birgit Mcclelland DO; Dr. Nikolas Maher MD Hand Sign Writer: Signed Birgit Mcclelland DO Work Phone: Start: 03-02-2022 MRI of lower extremity Start: 03-01-2022 End: 03-02-2022 12 Lead EKG Comments: See Note; NOTES: [facility] Cardiovascular Services [address] [place] [address] 12 Lead EKG 03/01/22 1206 MR#: [id number] Acct: [id number] Name: SHERMAN CORONEL Rep #: [id number] : 1965 56 From: Chadd Barron MD Attending Dr: Dr. Nikolas Maher MD Status: PRE [facility] Ordering Dr: Nikolas Maher MD Date: 03/01/22 Location: [facility] Sex: M C Admitted: Test Reason : PREOP Blood Pressure : / mmHG Vent. Rate : 080 BPM Atrial Rate : 080 BPM P-R Int : 156 ms QRS Dur : 090 ms QT Int : 340 ms P-R-T Axes : 069 066 049 degrees QTc Int : 392 ms Normal sinus rhythm Normal ECG Confirmed by TATUM MORRISON, ALMA ([id number]), commissioning editor LÓPEZ HILTON ([id number]) on 03/02/2022 10:29:45 AM Referred By: Nikolas Maher Confirmed By:BERNADINE BARRON MD 03/02/22 1029 Date Chadd Barron MD CC: Dr. Birgit Mcclelland DO; Dr. Nikolas Maher MD Signed Birgit Mcclelland DO Work Phone: Start: 03-25-2021 End: 03-25-2021 Emergency Department Summary Comments: See Note; NOTES: [facility] Medical Records Department [address] [place] [address] Emergency Department Summary 03/25/21 MR#: [id number] Acct: [id number] Name: SHERMAN CORONEL Rep #: [id number] : 1965 55 From: Bhupendra Myers MD PCP: Dr. Birgit Mcclelland, DO Status:REG ER Location: ED HPI HPI [...] your Primary Care Provider. Call [facility] ([phone]) or report to the closest Emergency Room. Call 911 if necessary. 03/25/21 0820 <Electronically signed by Bhupendra Myers MD> Cosigner Signature (if applicable): CC: Dr. Birgit Mcclelland DO Signed Birgit Mcclelland DO Work Phone: Start: 01-02-2021 End: 01-03-2021 Knee 4 or More Views Comments: See Note; NOTES: [facility] Imaging Services [address] [place] [address] Knee 4 or More Views MR#: [id number] Acct: [id number] Name: SHERMAN CORONEL Rep #: [id number] : 1965 M 55 From: Taj Haddad MD PCP: Dr. Birgit Mcclelland DO Status: REG CLI Study: Knee 4 or More Views Date of Exam: 01/02/21 Exam# [id number] Ordering Dr: Bhavin Barger PA-C STUDY: X-RAY [...] CC: SONYA Barger; Dr. Birgit Mcclelland DO Hand Sign Writer: Signed Birgit Mcclelland DO Work Phone: Start: 03-18-2018 End: 03-18-2018 12 lead ECG Comments: See Note; NOTES: [facility] Cardiovascular Services [address] [place] [place] [address] 12 Lead EKG 03/14/18 1617 MR#: [id number] Acct: [id number] Name: SHERMAN CORONEL Rep #: [id number] : 1965 52 From: Colby Lowery MD Attending Dr: Status: DEP ER Ordering [...] ECG Confirmed by JACLYN MORRISON, COLBY ([id number]), commissioning editor FAISAL SWANSON ([id number]) on 03/18/2018 2:15:59 PM Referred By: Dick Moulton Confirmed By:COLBY LOWERY MD 03/18/18 1416 Date Colby Lowery MD CC: Yehuda Jones DO; Birgit Petersen Start: 03-17-2018 End: 03-17-2018 Emergency Department Summary Comments: See Note; NOTES: [facility] Medical Records Department [address] [place] [address] Emergency Department Summary 03/14/18 1618 MR#: [id number] Acct: [id number] Name: SHERMAN CORONEL Rep #: [id number] : 1965 52 From: Yehuda Jones DO [...] pop. The patient was talking to his manager fraud today and noticed some facial droop on [...] unknown origin This note was generated with Skyline Innov[employer] software. It may contain incorrect words, spelling, and punctuation that were not noted in review of the chart prior to signing ED Disposition - Plan for ED Patient: Disposition: Home or Assisted Living Chief Complaint: Neuro S/Sx Instructions: ED [place] Palsy, ED Fever Unconf Cause Prescriptions: Prednisone [...] your Primary Care Provider. Call [facility] ([phone]) or report to the closest Emergency Room. Call 911 if necessary. 03/17/18 0025 <Electronically signed by Yehuda Jones DO> Date Yehuda Jones DO Cosigner Signature (If Indicated): Date CC: Birgit Poole Start: 03-14-2018 End: 03-14-2018 Echocardiogram Complete Comments: See Note; NOTES: [facility] Cardiovascular Services [address] [place] [address] Echo Complete W/ Contrast 03/14/18 1356 MR#: [id number] Acct: [id number] Name: SHERMAN CORONEL Rep #: [id number] : 1965 52 From: Colby Lowery MD Attending Dr: Dick Moulton MD Status: REG CLI Ordering Dr: Dick Moulton MD Date: 03/14/18 Location: [facility] Sex: M C Admitted: Reason For Study: [...] Moulton Referring Physician: Birgit Mcclelland Performed By: Roof, Miriam, RDCS, RVT 03/14/181740 Date Colby Lowrey MD CC: Birgit Mcclelland DO; Dick Moulton MD Date Dictated: 03/14/18 1356 Date Transcribed: 03/14/181740 Hand Sign Writer: Signed Dick Moulton Work Phone: Start: 03-14-2018 End: 03-14-2018 Chest 1 View (Portable) Comments: See Note; NOTES: [facility] Imaging Services [address] [place] [address] Chest 1 View (Portable) MR#: [id number] Acct: [id number] Name: SHERMAN CORONEL Rep #: [id number] : 1965 M 52 From: Sean Snider MD PCP: Birgit Mcclelland DO Status: PRE ER Study: Chest 1 View (Portable) Date of Exam: 03/14/18 Exam# [id number] Ordering Dr: Yehuda Jones DO STUDY: X-RAY [...] CC: Yehuda Jones DO; Birgit Mcclelland DO Hand Sign Writer: Signed Birgit Mcclelland Start: 03-14-2018 End: 03-14-2018 Brain/Head without Contrast Comments: See Note; NOTES: [facility] Imaging Services [address] [place] [address] Brain/Head without Contrast MR#: [id number] Acct: [id number] Name: SHERMAN CORONEL Rep #: [id number] : 1965 M 52 From: Sean Snider MD PCP: Birgit Mcclelland DO Status: PRE ER Study: Brain/Head without Contrast Date of Exam: 03/14/18 Exam# [id number] Ordering Dr: Yehuda Jones DO STUDY: CT [...] CC: Yehuda Jones DO; Birgit Mcclelland DO Hand Sign Writer: Signed Birgit Mcclelland Start: 02-04-2018 End: 02-04-2018 Emergency Department Summary Comments: See Note; NOTES: [facility] Medical Records Department [address] [place] [address] Emergency Department Summary 02/04/18 1610 MR#: [id number] Acct: [id number] Name: SHERMAN CORONEL Rep #: [id number] : 1965 52 From: Virgil Valle MD [...] 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 He states he has not cared for any patients with diarrhea or C. difficile. [facility] was [facility] and had blood tests ordered as well [...] on monitor This note was generated with BlueV[employer] dictation software. It may contain incorrect words, spelling, and punctuation that were not noted in review of the chart prior to signing ED Disposition - Plan for ED Patient: Disposition: Home or Assisted Living Chief Complaint: Fever Instructions: ED Diarrhea Viral Referrals: Birgit Mcclelland, [Primary Care Provider] - 3-5 Days if not improving What to do if you have Problems For any increased pain, shortness of breath, bleeding, nausea or vomiting, chest pain, or any unexpected problems, contact your Primary Care Provider. Call [facility] ([phone]) or report to the closest Emergency Room. Call 911 if necessary. 02/04/18 1809 <Electronically signed by Virgil Valle MD> Date Virgil Valle MD Cosigner Signature (If Indicated): Date CC: Birgit Velascocatrachita Pulidoon Start: 02-03-2018 End: 02-03-2018 Chest PA and Lateral Comments: See Note; NOTES: [facility] Imaging Services [address] [place] [address] Chest PA and Lateral MR#: [id number] Acct: [id number] Name: SHERMAN CORONEL Rep #: [id number] : 1965 M 52 From: Parag Ramirez MD PCP: Birgit Mcclelland DO Status: REG CLI Study: Chest PA and Lateral Date of Exam: 02/03/18 Exam# [id number] Ordering Dr: Fabiana Salinas STUDY: X-RAY CHEST REASON FOR EXAM: Male, [...] , CC: RO Salinas; Birgit Mcclelland DO Hand Sign Writer: Signed Fabiana Salinas Start: 02-12-2017 End: 02-12-2017 Operative Report Comments: See Note; NOTES: [facility] Medical Records Department [address] [place] [address] Operative Report 02/12/17 0855 MR#: [id number] Acct: [id number] Name: SHERMAN CORONEL Rep #: [id number] : 1965 51 From: Dino Alvarenga MD PCP: Birgit Mcclelland DO Status: REG CLI Y Location: [place] [address] Problem List (1) Screen for colon cancer [...] Emergency Department Summary Comments: See Note; NOTES: [facility] Medical Records Department [address] [place] [address] Emergency Department Summary MR#: [id number] Acct: [id number] Name: SHERMAN CORONEL Rep #: [id number] : 1965 50 From: Vince Tabares MD PCP: Birgit Mcclelland DO Status: [facility] ER DATE OF SERVICE: 07/07/2016 CHIEF COMPLAINT: Abdominal [...] Discharged. Vince Tabares MD T: NTS JOB: [id number] 07/13/16 1531 <Electronically signed by Vince Tabares MD> Date Vince Tabares MD Cosigner Signature (If Indicated): Date CC: Birgit Mcclelland DO Date Dictated: 07/08/16126 Date Transcribed: 07/08/16126 Hand Sign Writer: Signed Birgit Mcclelland Start: 07-12-2016 End: 07-12-2016 Operative Report Comments: See Note; NOTES: [facility] Medical Records Department [address] [place] [address] Operative Report MR#: [id number] Acct: [id number] Name: SHERMAN CORONEL Rep #: [id number] : 1965 50 From: Yehuda Tang MD PCP: Birgit Mcclelland DO Status: [facility] DATE OF SERVICE: 07/10/2016 DATE OF SURGERY: [...] fascia and the umbilical port with a ppqygu-bw-amlpc stitch of 0 Vicryl. Skin incisions were closed with subcuticular stitches of 4-0 Monocryl. Steri-Strips were applied. Sterile dressings were applied and the patient tolerated the procedure well. Yehuda Tang MD T: NTS JOB: [id number] 07/12/16 1125 <Electronically signed by Yehuda Tang MD> Date Yehuda Tang MD Cosigner Signature (If Indicated): Date CC: Yehuda Tang MD; Birgit Mcclelland DO Date Dictated: 07/10/161644 Date Transcribed: 07/10/161644 Hand Sign Writer: Signed Birgit Mcclelland Start: 07-10-2016 End: 07-10-2016 Discharge Instruction Comments: See Note; NOTES: [facility] Medical Records Department [address] [place] [address] Instructions for Home/Discharge Instructions 07/10/16 1406 MR#: [id number] Acct: [id number] Name: SHERMAN CORONEL Rep #: [id number] : 1965 50 From: Yehuda Tang MD PCP: Birgit Mcclelland DO Status: REG [facility] Discharge Diet: Light diet - advance as [...] mg PO Q8H PRN PRN #10 tablet 11/20/16 Oxycodone HCl/Acetaminophen [Percocet 5/325] 1 - 2 [...] Up With: Yehuda Tang - Please call [phone] to schedule an appointment. When: 7 days after your surgery. 07/10/16 1407 <Electronically signed by Yehuda Tang MD> Date Yehuda Tang MD CC: Birgit Poole Start: 07-09-2016 End: 07-09-2016 12 lead ECG Comments: See Note; NOTES: [facility] Cardiovascular Services [address] [place] [address] 12 Lead EKG 07/07/16 2247 MR#: [id number] Acct: [id number] Name: SHERMAN CORONEL Rep #: [id number] : 1965 50 From: Zeyad Cee MD [...] ECG Confirmed by ZEYAD CEE MD ([id number]), commissioning editor FAISAL SWANSON ([id number]) on 07/09/2016 3:34:49 PM Referred By: YUMIKO Confirmed By:ZEYAD CEE MD 07/09/16 0594 Date Zeyad Cee MD CC: Birgit Mcclelland DO Date Dictated: 07/07/162246 Date Transcribed: 07/07/162246 Hand Sign Writer: Signed Birgit Mcclelland Start: 07-08-2016 End: 07-08-2016 Discharge Instruction Comments: See Note; NOTES: [facility] Medical Records Department [address] [place] [address] Discharge Instruction 07/08/16 0124 MR#: [id number] Acct: [id number] Name: SHERMAN CORONEL Rep #: [id number] : 1965 50 From: Vince Tabares MD [...] your Primary Care Provider. Call [facility] ([phone]) or report to the closest Emergency Room. Call 911 if necessary. 07/08/16 0150 <Electronically signed by Vince Tabares MD> Date Vince Tabares MD Cosigner Signature (If Indicated): Date CC: Birgit Poole Start: 07-07-2016 End: 07-08-2016 Gallbladder Comments: See Note; NOTES: [facility] Imaging Services [address] [place] [address] Gianluca 4d Gallbladder MR#: [id number] Acct: [id number] Name: SHERMAN CORONEL Rep #: [id number] : 1965 M 50 From: Kiran Barraza MD PCP: Birgit Mcclelland DO Status: REG ER Study: Gallbladder Date of Exam: 07/07/16 Exam# [id number] Ordering Dr: Vince Tabares MD STUDY: ABDOMINAL [...] MD at 1:09 EST , Service support [phone], CC: Birgit Mcclelland DO; Vince Tabares MD Hand Sign Writer: Signed Birgit Mcclelland Start: 03-07-2016 End: 03-07-2016 Follow Up Appt Other Zeyad Cee MD Start: 03-02-2016 End: 03-02-2016 Echocardiogram Complete Comments: See Note; NOTES: [facility] Cardiovascular Services [address] [place] [address] Echo Complete W/ Contrast 03/02/16 0957 MR#: [id number] Acct: [id number] Name: SHERMAN CORONEL Rep #: [id number] : 1965 50 From: Zeyad Cee MD Attending Dr: Zeyad Cee MD Status: REG CLI Ordering Dr: Zeyad Cee MD Date: 03/02/16 Location: [facility] Sex: M C Admitted: Reason For Study: [...] 03/02/16 1143 Date Zeyad Cee MD CC: Birgit Mcclelland DO Date Dictated: 03/02/16 0957 Date Transcribed: 03/02/16 114 Hand Sign Writer: Signed Birgit Mcclelland Start: 02-15-2016 End: 03-02-2016 Echocardiography Zeyad Cee MD Start: 02-12-2016 End: 02-12-2016 Chest 1 View (Portable) Comments: See Note; NOTES: [facility] Imaging Services [address] [place] [address] Verdana 4d Chest 1 View (Portable) MR#: [id number] Acct: [id number] Name: SHERMAN CORONEL Rep #: [id number] : 1965 M 50 From: Kiran Barraza MD PCP: Birgit Mcclelland DO Status: REG ER Study: Chest 1 View (Portable) Date of Exam: 02/12/16 Exam# [id number] Ordering Dr: Virgil Valle MD STUDY: X-RAY [...] MD at 6:44 EDT , Service support [phone], RAD/Chest 1 View (Portable) IMPRESSION: No evidence for acute cardiopulmonary pathology. Electronically Signed: Kiran Barraza MD at 6:44 EDT , Service support [phone], CC: Birgit Mcclelland DO; Virgil Valle MD Hand Sign Writer: Signed Birgit Mcclelland Start: 09-29-2014 End: 09-29-2014 Ankle min 3 Views Comments: See Note; NOTES: [facility] Imaging Services [address] [place] [address] Radiology Report MR#: [id number] Acct: [id number] Name: SHERMAN CORONEL Rep #: [id number] : 1965 M 48 From: Darrin Jauregui MD PCP: Birgit Mcclelland DO Status: REG CLI Study: Ankle min 3 Views Date of Exam: 09/29/14 Exam# [id number] Ordering Dr: Trini Tena STUDY: X-RAY - [...] MD at 17:12 EST , Service support [phone], CC: Trini Tena; Birgit Mcclelland DO Hand Sign Writer: Signed Trini Tena Work Phone: Start: 07-08-2013 PSA screening Birgit Mcclelland Comment on above: This test was performed using the TPSA a ssay method for theDimension chemistry system. Values obtained with differentassay methods cannot be used interchangably.When changing PSA assays in the course of monitoring apatient, additional sequential testing should be carriedout to confirm baseline values. 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 maher Arthroscopic knee operation [place] [employer] Comment on above: partial - dr. 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 Uri Mcclelland Work Phone: Plan of Treatment Date Care Activity Detail Author Start: 05-22-2023 Basic metabolic panel calcium total METABOLIC PANEL, BASIC (06274) [facility]; [facility] Work Phone: Start: 05-22-2023 Assay of thyroid stimulating hormone tsh TSH (99748) [facility]; [facility] Work Phone: Start: 05-22-2023 Hemoglobin glycosylated a1c HGB A1C (52323) [facility]; [facility] Work [...] Medicine; [facility] Work Phone: Start: 03-21-2022 Anes open/surg arthroscopic proc knee joint nos ANESTH KNEE JOINT SURGERY [facility] Work Phone: Start: 03-21-2022 Arthroplasty fem condyles/tibial plateau knee REVISION OF KNEE JOINT [facility] Work Phone: Start: 03-21-2022 Injection aa&/strd femoral nerve NJX AA&/STRD FEMORAL NERVE [facility] Work Phone: Start: 03-21-2022 Application of ice collar, cap or bag [facility] Work Phone: Start: 03-21-2022 Exercises [facility] Work Phone: Start: 03-21-2022 Incentive spirometry [facility] Work Phone: Start: 03-21-2022 Neurovascular assessment [facility] Work Phone: Start: 03-21-2022 Patient discharge [facility] Work Phone: Start: 03-21-2022 Patient education [facility] Work Phone: Start: 03-21-2022 Provision of activity privileges [facility] Work Phone: Start: 03-21-2022 Referral to service [facility] Work Phone: Start: 03-21-2022 Vital signs measurements [facility] Work Phone: Start: 03-21-2022 Wound care [facility] Work Phone: Start: 03-21-2022 [facility] Work Phone: Start: 02-26-2022 Lipid panel LIPID PANEL (00322) [facility]; [facility] Work Phone: Start: 02-26-2022 Assay of thyroid stimulating hormone tsh TSH (48072) [facility]; [facility] Work Phone: Start: 02-26-2022 Thromboplastin time partial plasma/whole blood PTT (Activated Partial Thromboplastin Time) (94233) [facility]; [facility] Work Phone: Start: 02-26-2022 Prothrombin time PT (Prothrobim Time) (38046) [facility]; [facility] Work Phone: Start: 02-26-2022 Comprehensive metabolic panel METABOLIC PANEL, COMPREHENSIVE (07582) [facility]; [facility] Work Phone: Start: 02-26-2022 Blood count complete auto&auto difrntl wbc CBC W/AUTO DIFF WBC (50818) [facility]; [facility] Work Phone: Start: 02-26-2022 Procedure Education Eprescribed prescriptions (G8553) [facility]; [facility] Work Phone: Start: 02-26-2022 Provider Instructions for Treatment [facility]; [facility] Work Phone: Start: 03-17-2021 Procedure Education Eprescribed prescriptions (G8553) [facility]; [facility] Work Phone: Start: 04-18-2020 Assay of phosphorus inorganic PHOSPHORUS (46580) [facility]; [facility] Work Phone: Start: 04-18-2020 Phosphate [Mass/Vol] PHOSPHORUS (15059) [facility] Work Phone: Start: 04-18-2020 Procedure Education Eprescribed prescriptions (G8553) [facility] Work Phone: Start: 04-18-2020 Provider Instructions for Treatment Reviewed Lab [facility] Work Phone: Start: 04-11-2020 HbA1c (Bld) [Mass fraction] HGB A1C (88704) [facility] Work Phone: Start: 04-11-2020 Hemoglobin glycosylated a1c HGB A1C (12102) [facility]; [facility] Work Phone: Start: 04-11-2020 Assay of blood/uric acid URIC ACID BLOOD (35966) [facility] Work Phone: Start: 04-11-2020 Lipid panel LIPID PANEL (21755) [facility] Work Phone: Start: 04-11-2020 Assay of thyroid stimulating hormone tsh TSH (THYROID STIMULATING HORMONE) (61022) [facility]; [facility] Work Phone: Start: 04-11-2020 TSH Qn TSH (THYROID STIMULATING HORMONE) (01324) [facility] Work Phone: Start: 04-11-2020 Assay of triiodothyronine t3 free T3, FREE (TRIDOTHYRONINE) (40952) [facility]; [facility] [facility] Work Phone: Start: 04-11-2020 Free T3 [Mass/Vol] T3, FREE (TRIDOTHYRONINE) (21872) [facility] Work Phone: Start: 04-11-2020 Assay of free thyroxine T4, FREE (THYROXINE) (32468) [facility]; [facility] Work Phone: Start: 04-11-2020 Free T4 [Mass/Vol] T4, FREE (THYROXINE) (57805) [facility] Work Phone: Start: 09-09-2019 Assay of triiodothyronine t3 free T3, FREE (TRIDOTHYRONINE) (33157) [facility]; [facility] Work Phone: Start: 09-09-2019 Free T3 [Mass/Vol] T3, FREE (TRIDOTHYRONINE) (10285) [facility] Work Phone: Start: 09-09-2019 Assay of free thyroxine T4, FREE (THYROXINE) (00457) [facility]; [facility] Work Phone: Start: 09-09-2019 Free T4 [Mass/Vol] T4, FREE (THYROXINE) (42898) [facility] Work Phone: Start: 09-09-2019 Assay of thyroid stimulating hormone tsh TSH (THYROID STIMULATING HORMONE) (68202) [facility]; [facility] Work Phone: Start: 09-09-2019 TSH Qn TSH (THYROID STIMULATING HORMONE) (54948) [facility] Work Phone: Start: 09-09-2019 Procedure Education Eprescribed prescriptions (G8553) [facility] Work Phone: Start: 09-09-2019 Provider Instructions for Treatment [facility] Work Phone: Start: 09-09-2019 Lipid panel LIPID PANEL (85638) [facility] Work Phone: Comment on above: do in november 2019 Start: 09-09-2019 Assay of free thyroxine T4, FREE (THYROXINE) (96354) [facility]; [facility] Work Phone: Start: 09-09-2019 Assay of thyroid stimulating hormone tsh TSH (39972) [facility]; [facility] Work Phone: Start: 09-09-2019 Free T4 [Mass/Vol] T4, FREE (THYROXINE) (46824) [facility] Work Phone: Start: 09-09-2019 TSH Qn TSH (63435) [facility] Work Phone: Start: 09-09-2019 Assay of triiodothyronine t3 free T3, FREE (TRIDOTHYRONINE) (29624) [facility]; [facility] Work Phone: Start: 09-09-2019 Free T3 [Mass/Vol] T3, FREE (TRIDOTHYRONINE) (72054) [facility] Work Phone: Start: 04-01-2019 Assay of triiodothyronine t3 free T3, FREE (TRIDOTHYRONINE) (82369) [facility]; [facility] Work Phone: Start: 04-01-2019 Free T3 [Mass/Vol] T3, FREE (TRIDOTHYRONINE) (53088) [facility] Work Phone: Start: 04-01-2019 Assay of thyroid stimulating hormone tsh TSH (THYROID STIMULATING HORMONE) (96606) [facility]; [facility] Work Phone: Start: 04-01-2019 TSH Qn TSH (THYROID STIMULATING HORMONE) (65416) [facility] Work Phone: Start: 04-01-2019 Procedure Education Eprescribed prescriptions (G8553) [facility] Work Phone: Start: 04-01-2019 Provider Instructions for Treatment [facility] Work Phone: Start: 04-01-2019 Assay of blood/uric acid URIC ACID BLOOD (59627) [facility] Work Phone: Comment on above: do 08/06 Start: 04-01-2019 Lipoprotein blood blessing numbers & subclasses NMR Profile (90029) [facility] Work Phone: Comment on above: do in 08/06 Start: 04-01-2019 Assay of prostate specific antigen total PSA (PROSTATE SPECIFIC ANTIGEN) (V76.44) [facility] Work Phone: Start: 04-01-2019 Assay of thyroid stimulating hormone tsh TSH (THYROID STIMULATING HORMONE) (92888) [facility]; [facility] Work Phone: Start: 04-01-2019 TSH Qn TSH (THYROID STIMULATING HORMONE) (70379) [facility] Work Phone: Start: 04-01-2019 25 hydroxy includes fractions if performed CALCIFEDIOL (02743) [facility] Work Phone: Start: 04-01-2019 HbA1c (Bld) [Mass fraction] HGB A1C (69249) [facility] Work Phone: Start: 04-01-2019 Hemoglobin glycosylated a1c HGB A1C (23588) [facility]; [facility] Work Phone: Start: 03-12-2018 Procedure Education Eprescribed prescriptions (G8553) [facility] Work Phone: Start: 03-12-2018 Provider Instructions for Treatment Reviewed Lab [facility] Work Phone: Start: 02-26-2018 Blood count complete automated CBC (AUTO) (53561) [facility] Work Phone: Start: 02-26-2018 Antinuclear antibodies criselda CRISELDA (ANTINUCLEAR ANTIBODY) (70143) [facility]; [facility] Work Phone: Start: 02-26-2018 Nuclear Ab IF titer (S) CRISELDA (ANTINUCLEAR ANTIBODY) (57187) [facility] Work Phone: Start: 02-26-2018 Provider Instructions for Treatment [facility] Work Phone: Start: 02-25-2018 C-reactive protein C-REACTIVE PROTEIN (09465) [facility]; [facility] Work Phone: Start: 02-25-2018 CRP mass conc C-REACTIVE PROTEIN (68667) [facility] Work Phone: Start: 02-03-2018 Culture bct isol&prsmptv id isolate ea urine URINE BENTLEY CULTURE-IDENTIFICATN (56120) [facility] Work Phone: Start: 02-03-2018 Urinalysis qual/semiquant except immunoassays URINALYSIS (03251) [facility] Work Phone: Start: 02-03-2018 C-reactive protein C-REACTIVE PROTEIN (41144) [facility]; [facility] Work Phone: Start: 02-03-2018 CRP mass conc C-REACTIVE PROTEIN (45389) [facility] Work Phone: Start: 02-03-2018 Sedimentation rate rbc non-automated ESR-F (SED RATE ERYTHROCYTE - MALE) (52197) [facility] Work Phone: Start: 02-03-2018 Patient Education Fever: temperature [facility] Work Phone: Start: 02-03-2018 Procedure Education Eprescribed prescriptions (G9369) [facility] Work Phone: Start: 02-03-2018 Provider Instructions for Treatment Follow up if no improvement or if symptoms worsen [facility] Work Phone: Start: 02-03-2018 Culture bacterial blood aerobic w/id isolates BENTLEY CULTURE-BLOOD (95463) [facility] Work Phone: Start: 02-03-2018 Comprehensive metabolic panel METABOLIC PANEL, COMPREHENSIVE (91358) [facility] Work Phone: Start: 02-03-2018 Blood count complete auto&auto difrntl wbc CBC, PLATELETS & AUT DIFF (54718) [facility] Work Phone: Start: 02-03-2018 Virus centrifuge enhncd id imfluor stain ea Influenza A&B Viral Culture (01611) [facility] Work Phone: Start: 03-22-2017 Procedure Education Eprescribed prescriptions (G8553) [facility] Work Phone: Start: 03-08-2017 Provider Instructions for Treatment Reviewed Lab [facility] Work Phone: Start: 02-15-2017 End: 02-15-2017 Appointment Appointment [facility] Work Phone: Start: 12-25-2016 End: 12-25-2016 Appointment Appointment [facility] Work Phone: Start: 12-25-2016 End: 12-25-2016 Diagnostic colonoscopy Colonoscopy [facility] Work Phone: Start: 11-02-2016 Provider Instructions for Treatment [facility] Work Phone: Start: 11-02-2016 Assay of prostate specific antigen total PSA (PROSTATE SPECIFIC ANTIGEN) (V76.44) [facility] Work Phone: Start: 11-02-2016 Protein mass conc PSA (PROSTATE SPECIFIC ANTIGEN) (V76.44) [facility] Work Phone: Start: 11-02-2016 25 hydroxy includes fractions if performed CALCIFIDIOL (36663) VIT D 25 [facility] Work Phone: Start: 10-31-2016 Procedure Education Eprescribed prescriptions (G8553) [facility] Work Phone: Start: 10-31-2016 Assay of thyroid stimulating hormone tsh TSH (04283) [facility]; [facility] Work Phone: Start: 10-31-2016 Thyrotropin Qn TSH (78075) [facility] Work Phone: Start: 10-31-2016 Assay of free thyroxine T4, FREE (THYROXINE) (27091) [facility]; [facility] Work Phone: Start: 10-31-2016 T4 free mass conc T4, FREE (THYROXINE) (67022) [facility] Work Phone: Start: 10-31-2016 Assay of triiodothyronine t3 free T3, FREE (TRIDOTHYRONINE) (94679) [facility]; [facility] Work Phone: Start: 10-31-2016 T3 free mass conc T3, FREE (TRIDOTHYRONINE) (83426) [facility] Work Phone: Start: 03-07-2016 End: 03-07-2016 Follow Up Appt Other Follow Up Appt Other [facility] Work Phone: Start: 02-15-2016 End: 02-15-2016 Echocardiography Echocardiogram (complete) [facility] Work Phone: Start: 03-16-2015 25 hydroxy includes fractions if performed CALCIFEDIOL (62126) [facility] Work Phone: Start: 03-04-2015 Provider Instructions for Treatment [facility] Work Phone: Start: 03-04-2015 25 hydroxy includes fractions if performed CALCIFEDIOL (14801) [facility] Work Phone: Comment on above: to be done May 2015 Start: 03-04-2015 Assay of parathormone PARATHORMONE (68351) [facility] Work Phone: Start: 03-04-2015 25 hydroxy includes fractions if performed CALCIFEDIOL (39933) [facility] Work Phone: Start: 11-12-2014 Assay of blood/uric acid URIC ACID BLOOD (40768) [facility] Work Phone: Comment on above: draw in 2 weeks at hospital Start: 10-29-2014 Provider Instructions for Treatment Follow up in 2 weeks [facility] Work Phone: Start: 09-29-2014 Procedure Education Eprescribed prescriptions (G8553) [facility] Work Phone: Start: 09-29-2014 Rheumatoid factor quantitative RHEUMATOID FACTOR-QUANT (85289) [facility] Work Phone: Start: 09-29-2014 Assay of blood/uric acid URIC ACID BLOOD (15962) [facility] Work Phone: Start: 04-14-2014 Provider Instructions for Treatment [facility] Work Phone: Start: 04-14-2014 Hemoglobin A1c/Hemoglobin.total mass fraction (Bld) Hemoglobin Glyclated (HGB A1C) (46107) [facility] Work Phone: Start: 04-14-2014 Hemoglobin glycosylated a1c Hemoglobin Glyclated (HGB A1C) (80066) [facility]; [facility] Work Phone: Start: 04-09-2013 Provider Instructions for Treatment Reviewed Lab [facility] Work Phone: Start: 04-09-2013 Hepatic function panel HEPATIC FUNCTION PANEL (07417) [facility] Work Phone: Comment on above: do in jun Start: 04-09-2013 Lipid panel LIPID PANEL (67996) [facility] Work Phone: Comment on above: do in jun Start: 04-09-2013 Assay of prostate specific antigen total PSA (PROSTATE SPECIFIC ANTIGEN) (V76.44) [facility] Work Phone: Comment on above: dp after july 11 Start: 04-09-2013 Protein mass conc PSA (PROSTATE SPECIFIC ANTIGEN) (V76.44) [facility] Work Phone: Comment on above: dp after july 11 Start: 07-25-2012 Provider Instructions for Treatment [facility] Work Phone: Start: 03-06-2012 Provider Instructions for Treatment Reviewed Lab [facility] Work Phone: Start: 03-06-2012 Hemoglobin A1c/Hemoglobin.total mass fraction (Bld) Hemoglobin Glyclated (HGB A1C) (94150) [facility] Work Phone: Start: 03-06-2012 Hemoglobin glycosylated a1c Hemoglobin Glyclated (HGB A1C) (91679) [facility]; [facility] Work Phone: Start: 03-06-2012 Assay of prostate specific antigen total PSA (PROSTATE SPECIFIC ANTIGEN) (V76.44) [facility] Work Phone: Start: 03-06-2012 Protein mass conc PSA (PROSTATE SPECIFIC ANTIGEN) (V76.44) [facility] Work Phone: Start: 07-26-2011 Assay of prostate specific antigen total PSA (PROSTATE SPECIFIC ANTIGEN) (V76.44) [facility] Work Phone: Start: 07-26-2011 Protein mass conc PSA (PROSTATE SPECIFIC ANTIGEN) (V76.44) [facility] Work Phone: Start: 07-26-2011 Hepatic function panel HEPATIC FUNCTION PANEL (48495) [facility] Work Phone: Start: 07-26-2011 Lipid panel LIPID PANEL (62805) [facility] Work Phone: Start: 04-26-2011 Provider Instructions for Treatment [facility] Work Phone: Start: 04-26-2011 Glucose mass conc Glucose, PP/2 Hour (46650) [facility] Work Phone: Start: 04-26-2011 Glucose quantitative blood xcpt reagent strip Glucose, PP/2 Hour (78318) [facility] Work Phone: Patient referral [facility] Work Phone: [facility] Work Phone: [facility] Work Phone: [facility] Work Phone: [facility] Work Phone: [facility] Work Phone: [facility] Work Phone: [facility] Work Phone: Loss of appetite : Fever: temperature [facility] Work Phone: [facility]; [facility] Work Phone: Immunizations Immunization Date Immunization Notes Care Provider [facility] 07-13-2024 influenza, seasonal, injectable, preservative free Dr. Birgit Mcclelland DO Work Phone: [facility] 06-06-2023 influenza, injectabl e, quadrivalent, preservative free [facility] 06-06-2022 influenza, injectabl e, quadrivalent, preservative free [facility] 07-17-2021 Covid (Pfizer) [facility] 05-16-2021 influenza, injectabl e, quadrivalent, preservative free [facility] 05-16-2021 influenza, seasonal, injectable [facility] Work Phone: 12-02-2020 Covid (Pfizer) [facility] 11-11-2020 Covid (Pfizer) [facility] 05-17-2020 influenza, injectabl e, quadrivalent, preservative free [facility] 05-17-2020 influenza, seasonal, injectable [facility] Work Phone: 06-22-2019 influenza, injectabl e, quadrivalent, preservative free [facility] 06-22-2019 influenza, seasonal, injectable [facility] Work Phone: 05-16-2018 influenza, injectabl e, quadrivalent, preservative free [facility] 05-16-2018 influenza, seasonal, injectable [facility] Work Phone: 05-15-2017 influenza, injectabl e, quadrivalent, preservative free [facility] 05-15-2017 influenza, seasonal, injectable [facility] Work Phone: 05-17-2016 influenza, injectabl e, quadrivalent, preservative free [facility] 05-17-2016 influenza, seasonal, injectable [facility] Work Phone: 05-19-2015 influenza, injectabl e, quadrivalent, preservative free [facility] 05-19-2015 influenza, seasonal, injectable [facility] Work Phone: 05-13-2014 influenza, injectabl e, quadrivalent, preservative free [facility] 05-13-2014 influenza, seasonal, injectable [facility] Work Phone: 08-26-2013 Influenza virus vaccine [facility] Payers Date Payer Category Payer [facility] [id number] 2024 Self-pay [id number] 2016 Unknown [id number] Unknown Unknown [id number] [id number] [id number] Unknown [id number] [id number] [id number] Unknown [id number] 2.16.8 [id number] Unknown [id number] 2.16.8 [id number] Unknown [id number] 2.16.8 [id number] Social History Date Type Detail Facility Caffeine Use [facility] Work Phone: Comment on above: qd Inactive Lives with spouse 3 Dog, Cat Start: 03-25-2021 End: 03-07-2022 Tobacco smoking status GAIS Unknown if ever smoked [facility] Start: 1965 Sex Assigned At Male [facility] Start: 03-07-2022 Tobacco smoking status NHIS Never smoked tobacco (finding) [facility] Start: 11-11-2024 Sex Male (finding) [facility] Medical Equipment Procedure Code Equipment Code Equipment Origin al Text Equipment Identifier Dates Arthroplasty, knee, unicompartmental, using robot-assisted navigation, or total knee CEMENT,BONE DOUGH 1/2 BATCH FDA Start: 03-21-2022 Arthroplasty, knee, unicompartmental, using robot-assisted navigation, or total knee ([id number]) Unicondylar knee prosthesis ()[id number] FDA Start: 03-21-2022 Arthroplasty, knee, unicompartmental, using robot-assisted navigation, or total knee ([id number]) Unicondylar knee prosthesis ()[id number] FDA Start: 03-21-2022 Arthroplasty, knee, unicompartmental, using robot-assisted navigation, or total knee (399967828) Unicondylar knee prosthesis )[id number] FDA Start: 03-21-2022 Arthroplasty, knee, unicompartmental, using robot-assisted navigation, or total knee CEMENT,BONE DOUGH 1/2 BATCH FDA Start: 03-21-2022 Arthroplasty, knee, unicompartmental, using robot-assisted navigation, or total knee CEMENT,BONE DOUGH 1/2 BATCH FDA Start: 03-21-2022 Arthroplasty, knee, unicompartmental, using robot-assisted navigation, or total knee CEMENT,BONE DOUGH 1/2 BATCH FDA Start: 03-21-2022 Arthroplasty, knee, unicompartmental, using robot-assisted navigation, or total knee CEMENT,BONE DOUGH 1/2 BATCH FDA Start: 03-21-2022 Arthroplasty, knee, unicompartmental, using robot-assisted navigation, or total knee CEMENT,BONE DOUGH 1/2 BATCH FDA Start: 03-21-2022 Arthroplasty, knee, unicompartmental, using robot-assisted navigation, or total knee CEMENT,BONE DOUGH 1/2 BATCH FDA Start: 03-21-2022 Goals Date Patient Goal Desired Activity /State Mental Status Date Assessment Result Facility 03-21-2022 Cognitive function Voice/Name [facility] Work Phone: Clinical Notes 11-29-2023 Note Date & Type Note Facility 11-29-2023 Discharge summary Note Date/Time November 29, 2023 4:23pm [facility] [address] [place] [address] / REHABILITATION SERVICES DISCHARGE SUMMARY MR#: [id number] Acct: [id number] Name: SHERMNA CORONEL Rep #: [id number] : 1965 57 From: Cert. JOHN Jensen, OCS Referring DrPushpa: SONYA Barger Status: REG RCR [facility]: [employer] S[employer] PAY INSURANCE Patient Information Patient Information: SHERMAN CORONEL was seen in my office for initial evaluation on 09/04/23. The following Plan of Care was established for this patient: POC Established Initial Frequency: 2-3x /Week Initial Duration: 4-6 Weeks Anticipated Interventions Patient/Client Instruction: Educate patient on: Condition and Plan of Care For the Purpose of:: To decrease pain, To increase ROM, To improve muscle performance and motor function, To improve ability to perform ADL's, To increasetolerance to activity/condition/position, To improve ability of physical actionsfor home/community/work/leisure, To improve health of tissue, To decrease soft tissue restriction, To increase flexibility/ROM and To prevent re-injury Therapeutic Exercise to Include: Strength training, Postural training, Flexibilty training, Passive ROM, Active ROM and Scapular Strength/Stabilization For the Purpose of:: To decrease pain, To increase ROM, To improve muscle performance and motor function, To improve ability to perform ADL's, To increasetolerance to activity/condition/position, To improve performance and independence with ADL's, To improve ability of physical actions for home/community/work/leisure, To improve health of tissue, To decrease soft tissue restriction, To increase flexibility/ROM and To prevent re-injury Manual Therapy Techniques to Include: Mobilization and Passive ROM Comment: G-H For the Purpose of:: To decrease pain, To increase ROM, To improve muscle performance and motor function, To increase tolerance to activity/condition/position, To improve ability of physical actions for home/community/work/leisure, To improve health of tissue, To decrease soft tissue restriction and To increase flexibility/ROM Last Seen Last Seen: This patient was last seen in our office . Pertinent comments regarding their Physical therapy will appear below: Patient has been seen for PT for right shoulder pain impingement for PT for ROM and strengthening thus is d/c after 5 visist, At this point I will be discontinuing this patient from physical therapy. I would be happy to see this patient again in the future if found appropriate by the physician. Thank you! Ehsan Sanderson, PT, Cert MDT, OCS Balance/Gait/Functional tests Balance/Special Test Scores Quick DASH Score: 40.9075 <Electronically signed by Yenifer Billingsley PT. JOHN, FLORIN> 11/29/23 2770 CC: SONYA Barger; Dr. Birgit Mcclelland, DO ~ JLMatty Signed [facility] Work Phone: 1(287) 253-266204-12-2024 Discharge summary Author Ehsan Sanderson [facility] November 29, 2023 4:25pm Note Date/Time November 29, 2023 4:2 3pm [facility] [address] [place] [address] / REHABILITATION SERVICES DISCHARGE SUMMARY MR#: [id number] Acct: [id number] Name: SHERMAN CORONEL Rep #: [id number] : 1965 57 From: Cert. PRINCE JensenT, OCS Referring DrPushpa: SONYA Barger Status: REG RCR Insurance: [employer] SELF PAY INSURANCE Patient Information Patient Information: SHERMAN CORONEL was seen in my office for initial evaluation on 09/04/23. The following Plan of Care was established for this patient: POC Established Initial Frequency: 2-3x /Week Initial Duration: 4-6 Weeks Anticipated Interventions Patient/Client Instruction: Educate patient on: Condition and Plan of Care For the Purpose of:: To decrease pain, To increase ROM, To improve muscle performance and motor function, To improve ability to perform ADL's, To increasetolerance to activity/condition/position, To improve ability of physical actionsfor home/community/work/leisure, To improve health of tissue, To decrease soft tissue restriction, To increase flexibility/ROM and To prevent re-injury Therapeutic Exercise to Include: Strength training, Postural training, Flexibilty training, Passive ROM, Active ROM and Scapular Strength/Stabilization For the Purpose of:: To decrease pain, To increase ROM, To improve muscle performance and motor function, To improve ability to perform ADL's, To increasetolerance to activity/condition/position, To improve performance and independence with ADL's, To improve ability of physical actions for home/community/work/leisure, To improve health of tissue, To decrease soft tissue restriction, To increase flexibility/ROM and To prevent re-injury Manual Therapy Techniques to Include: Mobilization and Passive ROM Comment: G-H For the Purpose of:: To decrease pain, To increase ROM, To improve muscle performance and motor function, To increase tolerance to activity/condition/position, To improve ability of physical actions for home/community/work/leisure, To improve health of tissue, To decrease soft tissue restriction and To increase flexibility/ROM Last Seen Last Seen: This patient was last seen in our office . Pertinent comments regarding their Physical therapy will appear below: Patient has been seen for PT for right shoulder pain impingement for PT for ROM and strengthening thus is d/c after 5 visist, At this point I will be discontinuing this patient from physical therapy. I would be happy to see this patient again in the future if found appropriate by the physician. Thank you! Ehsan Sanderson PT, Cert MDT, OCS Balance/Gait/Functional tests Balance/Special Test Scores Quick DASH Score: [id number] <Electronically signed by Ehsan Sanderson PT Cert. JOHN, OCS> 11/29/23 3415 CC: SONYA Barger; Dr. 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 Start:18-Apr-2020 Instruction Type:Provider Instructions for Treatment How to access health informa tion online 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 Start:09-Sep-2019 Instruction Type:Patient Education How to access health informa tion online - Detail 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 Start:09-Sep-2019 Instruction Type:Patient Education Patient Instructions 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 Start:09-Sep-2019 Instruction Type:Provider Instructions for Treatment How to access health informa tion online 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 Start:01-Apr-2019 Instruction Type:Patient Education How to access health informa tion online - Detail 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 Start:01-Apr-2019 Instruction Type:Patient Education Patient Instructions 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 Start:01-Apr-2019 Instruction Type:Provider Instructions for Treatment How to access health informa tion online 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 Start:12-Mar-2018 Instruction Type:Patient Education How to access health informa tion online - Detail 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 Start:12-Mar-2018 Instruction Type:Patient Education Patient Instructions 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 Start:12-Mar-2018 Instruction Type:Provider Instructions for Treatment How [...] Indication:Ankle pain, left Start:29-Sep-2014 Instruction Type:Patient Education Patient Instructions Indication:Ankle pain, left Start:29-Sep-2014 Instruction Type:Provider Instructions for Treatment [facility] Work Phone: Instructions* Name Dates Details How to access health informa tion online 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 Start:18-Apr-2020 Instruction Type:Patient Education How to access health informa tion online - Detail 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 Start:18-Apr-2020 Instruction Type:Patient Education Patient Instructions 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 Start:18-Apr-2020 Instruction Type:Provider Instructions for Treatment How to access health informa tion online 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 Start:09-Sep-2019 Instruction Type:Patient Education How to access health informa tion online - Detail 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 Start:09-Sep-2019 Instruction Type:Patient Education Patient Instructions 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 Start:09-Sep-2019 Instruction Type:Provider Instructions for Treatment How to access health informa tion online 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 Start:01-Apr-2019 Instruction Type:Patient Education How to access health informa tion online - Detail 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 Start:01-Apr-2019 Instruction Type:Patient Education Patient Instructions 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 Start:01-Apr-2019 Instruction Type:Provider Instructions for Treatment How to access health informa tion online 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 Start:12-Mar-2018 Instruction Type:Patient Education How to access health informa tion online - Detail 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 Start:12-Mar-2018 Instruction Type:Patient Education Patient Instructions 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 Start:12-Mar-2018 Instruction Type:Provider Instructions for Treatment How [...] Indication:Ankle pain, left Start:29-Sep-2014 Instruction Type:Patient Education Patient Instructions Indication:Ankle pain, left Start:29-Sep-2014 Instruction Type:Provider Instructions for Treatment [facility] Work Phone: Instructions* Name Dates Details Patient Instructions 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 Start:17-Mar-2021 Instruction Type:Provider Instructions for Treatment How to Access Health Informa tion Online using Patient Portal and 3rd [employer] Apps 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 Start:17-Mar-2021 Instruction Type:Patient Education How to access health informa tion online 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 Start:18-Apr-2020 Instruction Type:Patient Education How to access health informa tion online - Detail 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 Start:18-Apr-2020 Instruction Type:Patient Education Patient Instructions 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 Start:18-Apr-2020 Instruction Type:Provider Instructions for Treatment How to access health informa tion online 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 Start:09-Sep-2019 Instruction Type:Patient Education How to access health informa tion online - Detail 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 Start:09-Sep-2019 Instruction Type:Patient Education Patient Instructions 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 Start:09-Sep-2019 Instruction Type:Provider Instructions for Treatment How to access health informa tion online 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 Start:01-Apr-2019 Instruction Type:Patient Education How to access health informa tion online - Detail 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 Start:01-Apr-2019 Instruction Type:Patient Education Patient Instructions 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 Start:01-Apr-2019 Instruction Type:Provider Instructions for Treatment How to access health informa tion online 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 Start:12-Mar-2018 Instruction Type:Patient Education How to access health informa tion online - Detail 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 Start:12-Mar-2018 Instruction Type:Patient Education Patient Instructions 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 Start:12-Mar-2018 Instruction Type:Provider Instructions for Treatment How [...] Indication:Ankle pain, left Start:29-Sep-2014 Instruction Type:Patient Education Patient Instructions Indication:Ankle pain, left Start:29-Sep-2014 Instruction Type:Provider Instructions for Treatment [facility]; [facility] Work Phone: Instructions* Name Dates Details Patient Instructions 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 Start:26-Feb-2022 Instruction Type:Provider Instructions for Treatment How to Access Health Informa tion Online using Patient Portal and [employer]rd [employer] Apps 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 Start:26-Feb-2022 Instruction Type:Patient Education Patient Instructions 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 Start:17-Mar-2021 Instruction Type:Provider Instructions for Treatment How to Access Health Informa tion Online using Patient Portal and [employer]rd [employer] Apps 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 Start:17-Mar-2021 Instruction Type:Patient Education How to access health informa tion online 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 Start:18-Apr-2020 Instruction Type:Patient Education How to access health informa tion online - Detail 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 Start:18-Apr-2020 Instruction Type:Patient Education Patient Instructions 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 Start:18-Apr-2020 Instruction Type:Provider Instructions for Treatment How to access health informa tion online 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 Start:09-Sep-2019 Instruction Type:Patient Education How to access health informa tion online - Detail 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 Start:09-Sep-2019 Instruction Type:Patient Education Patient Instructions 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 Start:09-Sep-2019 Instruction Type:Provider Instructions for Treatment How to access health informa tion online 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 Start:01-Apr-2019 Instruction Type:Patient Education How to access health informa tion online - Detail 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 Start:01-Apr-2019 Instruction Type:Patient Education Patient Instructions 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 Start:01-Apr-2019 Instruction Type:Provider Instructions for Treatment How to access health informa tion online 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 Start:12-Mar-2018 Instruction Type:Patient Education How to access health informa tion online - Detail 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 Start:12-Mar-2018 Instruction Type:Patient Education Patient Instructions 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 Start:12-Mar-2018 Instruction Type:Provider Instructions for Treatment How [...] Indication:Ankle pain, left Start:29-Sep-2014 Instruction Type:Patient Education Patient Instructions Indication:Ankle pain, left Start:29-Sep-2014 Instruction Type:Provider Instructions for Treatment [facility]; [facility] Work Phone: Instructions* Name Dates Details Patient Instructions 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 Start:26-Feb-2022 Instruction Type:Provider Instructions for Treatment How to Access Health Informa tion Online using Patient Portal and [employer]rd [employer] Apps 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 Start:26-Feb-2022 Instruction Type:Patient Education Patient Instructions 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 Start:17-Mar-2021 Instruction Type:Provider Instructions for Treatment How to Access Health Informa tion Online using Patient Portal and [employer]rd [employer] Apps 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 Start:17-Mar-2021 Instruction Type:Patient Education How to access health informa tion online 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 Start:18-Apr-2020 Instruction Type:Patient Education How to access health informa tion online - Detail 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 Start:18-Apr-2020 Instruction Type:Patient Education Patient Instructions 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 Start:18-Apr-2020 Instruction Type:Provider Instructions for Treatment How to access health informa tion online 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 Start:09-Sep-2019 Instruction Type:Patient Education How to access health informa tion online - Detail 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 Start:09-Sep-2019 Instruction Type:Patient Education Patient Instructions 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 Start:09-Sep-2019 Instruction Type:Provider Instructions for Treatment How to access health informa tion online 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 Start:01-Apr-2019 Instruction Type:Patient Education How to access health informa tion online - Detail 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 Start:01-Apr-2019 Instruction Type:Patient Education Patient Instructions 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 Start:01-Apr-2019 Instruction Type:Provider Instructions for Treatment How to access health informa tion online 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 Start:12-Mar-2018 Instruction Type:Patient Education How to access health informa tion online - Detail 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 Start:12-Mar-2018 Instruction Type:Patient Education Patient Instructions 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 Start:12-Mar-2018 Instruction Type:Provider Instructions for Treatment How [...] Indication:Ankle pain, left Start:29-Sep-2014 Instruction Type:Patient Education Patient Instructions Indication:Ankle pain, left Start:29-Sep-2014 Instruction Type:Provider Instructions for Treatment [facility]; [facility] Work Phone: Instructions* Name Dates Details Patient Instructions 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 Start:26-Feb-2022 Instruction Type:Provider Instructions for Treatment How to Access Health Informa tion Online using Patient Portal and [employer]rd [employer] Apps 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 Start:26-Feb-2022 Instruction Type:Patient Education Patient Instructions 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 Start:17-Mar-2021 Instruction Type:Provider Instructions for Treatment How to Access Health Informa tion Online using Patient Portal and [employer]rd [employer] Apps 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 Start:17-Mar-2021 Instruction Type:Patient Education How to access health informa tion online 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 Start:18-Apr-2020 Instruction Type:Patient Education How to access health informa tion online - Detail 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 Start:18-Apr-2020 Instruction Type:Patient Education Patient Instructions 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 Start:18-Apr-2020 Instruction Type:Provider Instructions for Treatment How to access health informa tion online 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 Start:09-Sep-2019 Instruction Type:Patient Education How to access health informa tion online - Detail 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 Start:09-Sep-2019 Instruction Type:Patient Education Patient Instructions 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 Start:09-Sep-2019 Instruction Type:Provider Instructions for Treatment How to access health informa tion online 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 Start:01-Apr-2019 Instruction Type:Patient Education How to access health informa tion online - Detail 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 Start:01-Apr-2019 Instruction Type:Patient Education Patient Instructions 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 Start:01-Apr-2019 Instruction Type:Provider Instructions for Treatment How to access health informa tion online 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 Start:12-Mar-2018 Instruction Type:Patient Education How to access health informa tion online - Detail 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 Start:12-Mar-2018 Instruction Type:Patient Education Patient Instructions 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 Start:12-Mar-2018 Instruction Type:Provider Instructions for Treatment How [...] Indication:Ankle pain, left Start:29-Sep-2014 Instruction Type:Patient Education Patient Instructions Indication:Ankle pain, left Start:29-Sep-2014 Instruction Type:Provider Instructions for Treatment [facility]; [facility] Work Phone: Instructions* Name Dates Details Patient Instructions 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 Start:26-Feb-2022 Instruction Type:Provider Instructions for Treatment How to Access Health Informa tion Online using Patient Portal and [employer]rd [employer] Apps 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 Start:26-Feb-2022 Instruction Type:Patient Education Patient Instructions 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 Start:17-Mar-2021 Instruction Type:Provider Instructions for Treatment How to Access Health Informa tion Online using Patient Portal and [employer]rd [employer] Apps 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 Start:17-Mar-2021 Instruction Type:Patient Education How to access health informa tion online 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 Start:18-Apr-2020 Instruction Type:Patient Education How to access health informa tion online - Detail 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 Start:18-Apr-2020 Instruction Type:Patient Education Patient Instructions 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 Start:18-Apr-2020 Instruction Type:Provider Instructions for Treatment How to access health informa tion online 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 Start:09-Sep-2019 Instruction Type:Patient Education How to access health informa tion online - Detail 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 Start:09-Sep-2019 Instruction Type:Patient Education Patient Instructions 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 Start:09-Sep-2019 Instruction Type:Provider Instructions for Treatment How to access health informa tion online 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 Start:01-Apr-2019 Instruction Type:Patient Education How to access health informa tion online - Detail 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 Start:01-Apr-2019 Instruction Type:Patient Education Patient Instructions 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 Start:01-Apr-2019 Instruction Type:Provider Instructions for Treatment How to access health informa tion online 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 Start:12-Mar-2018 Instruction Type:Patient Education How to access health informa tion online - Detail 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 Start:12-Mar-2018 Instruction Type:Patient Education Patient Instructions 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 Start:12-Mar-2018 Instruction Type:Provider Instructions for Treatment How [...] Indication:Ankle pain, left Start:29-Sep-2014 Instruction Type:Patient Education Patient Instructions Indication:Ankle pain, left Start:29-Sep-2014 Instruction Type:Provider Instructions for Treatment [facility]; [facility] Work Phone: Instructions* Name Dates Details Patient Instructions 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 Start:20-Apr-2022 Instruction Type:Provider Instructions for Treatment How to Access Health Informa tion Online using Patient Portal and [employer]rd [employer] Apps 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 Start:20-Apr-2022 Instruction Type:Patient Education Patient Instructions 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 Start:26-Feb-2022 Instruction Type:Provider Instructions for Treatment How to Access Health Informa tion Online using Patient Portal and [employer]rd [employer] Apps 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 Start:26-Feb-2022 Instruction Type:Patient Education Patient Instructions 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 Start:17-Mar-2021 Instruction Type:Provider Instructions for Treatment How to Access Health Informa tion Online using Patient Portal and [employer]rd [employer] Apps 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 Start:17-Mar-2021 Instruction Type:Patient Education How to access health informa tion online 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 Start:18-Apr-2020 Instruction Type:Patient Education How to access health informa tion online - Detail 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 Start:18-Apr-2020 Instruction Type:Patient Education Patient Instructions 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 Start:18-Apr-2020 Instruction Type:Provider Instructions for Treatment How to access health informa tion online 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 Start:09-Sep-2019 Instruction Type:Patient Education How to access health informa tion online - Detail 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 Start:09-Sep-2019 Instruction Type:Patient Education Patient Instructions 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 Start:09-Sep-2019 Instruction Type:Provider Instructions for Treatment How to access health informa tion online 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 Start:01-Apr-2019 Instruction Type:Patient Education How to access health informa tion online - Detail 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 Start:01-Apr-2019 Instruction Type:Patient Education Patient Instructions 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 Start:01-Apr-2019 Instruction Type:Provider Instructions for Treatment How to access health informa tion online 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 Start:12-Mar-2018 Instruction Type:Patient Education How to access health informa tion online - Detail 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 Start:12-Mar-2018 Instruction Type:Patient Education Patient Instructions 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 Start:12-Mar-2018 Instruction Type:Provider Instructions for Treatment How [...] Indication:Ankle pain, left Start:29-Sep-2014 Instruction Type:Patient Education Patient Instructions Indication:Ankle pain, left Start:29-Sep-2014 Instruction Type:Provider Instructions for Treatment [facility]; [facility] Work Phone: Instructions* Name Dates Details Patient Instructions 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 Start:20-Apr-2022 Instruction Type:Provider Instructions for Treatment How to Access Health Informa tion Online using Patient Portal and [employer]rd [employer] Apps 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 Start:20-Apr-2022 Instruction Type:Patient Education Patient Instructions 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 Start:26-Feb-2022 Instruction Type:Provider Instructions for Treatment How to Access Health Informa tion Online using Patient Portal and [employer]rd [employer] Apps 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 Start:26-Feb-2022 Instruction Type:Patient Education Patient Instructions 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 Start:17-Mar-2021 Instruction Type:Provider Instructions for Treatment How to Access Health Informa tion Online using Patient Portal and [employer]rd [employer] Apps 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 Start:17-Mar-2021 Instruction Type:Patient Education How to access health informa tion online 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 Start:18-Apr-2020 Instruction Type:Patient Education How to access health informa tion online - Detail 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 Start:18-Apr-2020 Instruction Type:Patient Education Patient Instructions 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 Start:18-Apr-2020 Instruction Type:Provider Instructions for Treatment How to access health informa tion online 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 Start:09-Sep-2019 Instruction Type:Patient Education How to access health informa tion online - Detail 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 Start:09-Sep-2019 Instruction Type:Patient Education Patient Instructions 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 Start:09-Sep-2019 Instruction Type:Provider Instructions for Treatment How to access health informa tion online 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 Start:01-Apr-2019 Instruction Type:Patient Education How to access health informa tion online - Detail 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 Start:01-Apr-2019 Instruction Type:Patient Education Patient Instructions 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 Start:01-Apr-2019 Instruction Type:Provider Instructions for Treatment How to access health informa tion online 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 Start:12-Mar-2018 Instruction Type:Patient Education How to access health informa tion online - Detail 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 Start:12-Mar-2018 Instruction Type:Patient Education Patient Instructions 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 Start:12-Mar-2018 Instruction Type:Provider Instructions for Treatment How [...] Indication:Ankle pain, left Start:29-Sep-2014 Instruction Type:Patient Education Patient Instructions Indication:Ankle pain, left Start:29-Sep-2014 Instruction Type:Provider Instructions for Treatment [facility]; [facility] Work Phone: Instructions* Name Dates Details Patient Instructions 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 Start:22-May-2023 Instruction Type:Provider Instructions for Treatment How to Access Health Informa tion Online using Patient Portal and [employer]rd [employer] Apps 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 Start:22-May-2023 Instruction Type:Patient Education Patient Instructions 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 Start:20-Apr-2022 Instruction Type:Provider Instructions for Treatment How to Access Health Informa tion Online using Patient Portal and [employer]rd [employer] Apps 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 Start:20-Apr-2022 Instruction Type:Patient Education Patient Instructions 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 Start:26-Feb-2022 Instruction Type:Provider Instructions for Treatment How to Access Health Informa tion Online using Patient Portal and [employer]rd [employer] Apps 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 Start:26-Feb-2022 Instruction Type:Patient Education Patient Instructions 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 Start:17-Mar-2021 Instruction Type:Provider Instructions for Treatment How to Access Health Informa tion Online using Patient Portal and [employer]rd [employer] Apps 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 Start:17-Mar-2021 Instruction Type:Patient Education How to access health informa tion online 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 Start:18-Apr-2020 Instruction Type:Patient Education How to access health informa tion online - Detail 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 Start:18-Apr-2020 Instruction Type:Patient Education Patient Instructions 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 Start:18-Apr-2020 Instruction Type:Provider Instructions for Treatment How to access health informa tion online 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 Start:09-Sep-2019 Instruction Type:Patient Education How to access health informa tion online - Detail 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 Start:09-Sep-2019 Instruction Type:Patient Education Patient Instructions 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 Start:09-Sep-2019 Instruction Type:Provider Instructions for Treatment How to access health informa tion online 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 Start:01-Apr-2019 Instruction Type:Patient Education How to access health informa tion online - Detail 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 Start:01-Apr-2019 Instruction Type:Patient Education Patient Instructions 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 Start:01-Apr-2019 Instruction Type:Provider Instructions for Treatment How to access health informa tion online 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 Start:12-Mar-2018 Instruction Type:Patient Education How to access health informa tion online - Detail 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 Start:12-Mar-2018 Instruction Type:Patient Education Patient Instructions 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 Start:12-Mar-2018 Instruction Type:Provider Instructions for Treatment How [...] Indication:Ankle pain, left Start:29-Sep-2014 Instruction Type:Patient Education Patient Instructions Indication:Ankle pain, left Start:29-Sep-2014 Instruction Type:Provider Instructions for Treatment [facility]; [facility] Work Phone: reason for referral (narrative)No [facility] for [facility] Summary Purpose Family History No Family History Records FoundUnknown Family Member Name Dates Details Colon Cancer [...] Advance Directives No Advanced Directives Records Found Advance Directive Response Recorded Date/ Time Advance Directives No June 10:40am Living Will No March 25, 2021 9:10pm Power of Machinery Dismantler No March 25 9:10pm Advance Directive Response Recorded Date/ Time Advance Directives No June 9:40am Living Will No March 07, 2022 12:18pm Power of Machinery Dismantler No March 07 12:18pm Advance Directive Response Recorded Date/ Time Advance Directives No June 10:40am Living Will No March 07, 2022 1:18pm Power of Machinery Dismantler No March 07 1:18pm Advance Directive Response Recorded Date/ Time Advance Directives No June 10:40am Instructions Name Dates Details rv repairer : How to acce ss health information online 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 rv repairer : How to acce ss health information online - Detail 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 rv repairer : Patient Ins tructions 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 Current nonsmoker : How to a ccess [...] Detail Indication:Ankle pain, left Name Dates Details rv repairer : How to acce ss health information online 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 rv repairer : How to acce ss health information online - Detail 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 rv repairer : Patient Ins tructions 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 Current nonsmoker : How to a ccess [...] Detail Indication:Ankle pain, left Name Dates Details rv repairer : How to acce ss health information online 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 rv repairer : How to acce ss health information online - Detail 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 rv repairer : Patient Ins tructions 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 Current nonsmoker : How to a ccess [...] How to access health informa tion online 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 Start:01-Apr-2019 Instruction Type:Patient Education How to access health informa tion online - Detail 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 Start:01-Apr-2019 Instruction Type:Patient Education Patient Instructions 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 Start:01-Apr-2019 Instruction Type:Provider Instructions for Treatment How to access health informa tion online 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 Start:12-Mar-2018 Instruction Type:Patient Education How to access health informa tion online - Detail 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 Start:12-Mar-2018 Instruction Type:Patient Education Patient Instructions 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 Start:12-Mar-2018 Instruction Type:Provider Instructions for Treatment How [...] How to access health informa tion online 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 Start:01-Apr-2019 Instruction Type:Patient Education How to access health informa tion online - Detail 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 Start:01-Apr-2019 Instruction Type:Patient Education Patient Instructions 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 Start:01-Apr-2019 Instruction Type:Provider Instructions for Treatment How to access health informa tion online 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 Start:12-Mar-2018 Instruction Type:Patient Education How to access health informa tion online - Detail 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 Start:12-Mar-2018 Instruction Type:Patient Education Patient Instructions 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 Start:12-Mar-2018 Instruction Type:Provider Instructions for Treatment How [...] How to access health informa tion online 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 Start:09-Sep-2019 Instruction Type:Patient Education How to access health informa tion online - Detail 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 Start:09-Sep-2019 Instruction Type:Patient Education Patient Instructions 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 Start:09-Sep-2019 Instruction Type:Provider Instructions for Treatment How to access health informa tion online 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 Start:01-Apr-2019 Instruction Type:Patient Education How to access health informa tion online - Detail 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 Start:01-Apr-2019 Instruction Type:Patient Education Patient Instructions 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 Start:01-Apr-2019 Instruction Type:Provider Instructions for Treatment How to access health informa tion online 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 Start:12-Mar-2018 Instruction Type:Patient Education How to access health informa tion online - Detail 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 Start:12-Mar-2018 Instruction Type:Patient Education Patient Instructions 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 Start:12-Mar-2018 Instruction Type:Provider Instructions for Treatment How [...] How to access health informa tion online 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 Start:18-Apr-2020 Instruction Type:Patient Education How to access health informa tion online - Detail 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 Start:18-Apr-2020 Instruction Type:Patient Education Patient Instructions 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 Start:18-Apr-2020 Instruction Type:Provider Instructions for Treatment How to access health informa tion online 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 Start:09-Sep-2019 Instruction Type:Patient Education How to access health informa tion online - Detail 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 Start:09-Sep-2019 Instruction Type:Patient Education Patient Instructions 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 Start:09-Sep-2019 Instruction Type:Provider Instructions for Treatment How to access health informa tion online 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 Start:01-Apr-2019 Instruction Type:Patient Education How to access health informa tion online - Detail 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 Start:01-Apr-2019 Instruction Type:Patient Education Patient Instructions 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 Start:01-Apr-2019 Instruction Type:Provider Instructions for Treatment How to access health informa tion online 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 Start:12-Mar-2018 Instruction Type:Patient Education How to access health informa tion online - Detail 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 Start:12-Mar-2018 Instruction Type:Patient Education Patient Instructions 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 Start:12-Mar-2018 Instruction Type:Provider Instructions for Treatment How [...] How to access health informa tion online 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 Start:18-Apr-2020 Instruction Type:Patient Education How to access health informa tion online - Detail 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 Start:18-Apr-2020 Instruction Type:Patient Education Patient Instructions 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 Start:18-Apr-2020 Instruction Type:Provider Instructions for Treatment How to access health informa tion online 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 Start:09-Sep-2019 Instruction Type:Patient Education How to access health informa tion online - Detail 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 Start:09-Sep-2019 Instruction Type:Patient Education Patient Instructions 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 Start:09-Sep-2019 Instruction Type:Provider Instructions for Treatment How to access health informa tion online 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 Start:01-Apr-2019 Instruction Type:Patient Education How to access health informa tion online - Detail 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 Start:01-Apr-2019 Instruction Type:Patient Education Patient Instructions 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 Start:01-Apr-2019 Instruction Type:Provider Instructions for Treatment How to access health informa tion online 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:rv 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 Start:12-Mar-2018 Instruction Type:Patient Education How to access health informa tion online - Detail 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 Start:12-Mar-2018 Instruction Type:Patient Education Patient Instructions 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 Start:12-Mar-2018 Instruction Type:Provider Instructions for Treatment How [...] How to access health informa tion online 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 Start:18-Apr-2020 Instruction Type:Patient Education How to access health informa tion online - Detail 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 Start:18-Apr-2020 Instruction Type:Patient Education Patient Instructions 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 Start:18-Apr-2020 Instruction Type:Provider Instructions for Treatment How to access health informa tion online 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:rv 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 Start:09-Sep-2019 Instruction Type:Patient Education How to access health informa tion online - Detail 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 Start:09-Sep-2019 Instruction Type:Patient Education Patient Instructions 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:rv 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 Start:09-Sep-2019 Instruction Type:Provider Instructions for Treatment How to access health informa tion online 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 Start:01-Apr-2019 Instruction Type:Patient Education How to access health informa tion online - Detail 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 Start:01-Apr-2019 Instruction Type:Patient Education Patient Instructions 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:rv 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 Start:01-Apr-2019 Instruction Type:Provider Instructions for Treatment How to access health informa tion online 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:rv 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 Start:12-Mar-2018 Instruction Type:Patient Education How to access health informa tion online - Detail 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:rv 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 Start:12-Mar-2018 Instruction Type:Patient Education Patient Instructions 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:rv repairer Start:12-Mar-2018 Instruction Type:Provider Instructions for Treatment How [...] How to access health informa tion online 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 Start:09-Sep-2019 Instruction Type:Patient Education How to access health informa tion online - Detail 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 Start:09-Sep-2019 Instruction Type:Patient Education Patient Instructions 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:rv 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 Start:09-Sep-2019 Instruction Type:Provider Instructions for Treatment How to access health informa tion online 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:rv 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 Start:01-Apr-2019 Instruction Type:Patient Education How to access health informa tion online - Detail 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:rv 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 Start:01-Apr-2019 Instruction Type:Patient Education Patient Instructions 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:rv repairer Start:01-Apr-2019 Instruction Type:Provider Instructions for Treatment How to access health informa tion online 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 Start:12-Mar-2018 Instruction Type:Patient Education How to access health informa tion online - Detail 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 Start:12-Mar-2018 Instruction Type:Patient Education Patient Instructions 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:rv repairer Start:12-Mar-2018 Instruction Type:Provider Instructions for Treatment How [...] Indication:Ankle pain, left Start:29-Sep-2014 Instruction Type:Patient Education Chief Complaint and Reason for Visit Chief Complaint RIGHT KNEE CHEVY PROT OCAL Chief Complaint RT ROBOTIC PARTIAL V S TOTAL KNEE RIGHT KNEE CHEVY PROTOCAL RT ROBOTIC PARTIAL VS TOTAL KNEE Chief Complaint 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 HEALTH Chief Complaint PN IN R SHLD,IMPINGE MENT SYND/RX HERE Chief Complaint Admit Date EMPLOYEE LABS March 31, 2025 11 :30am Additional Source Comments (unrecognized sect ion and content) No Status Records FoundNo Status Records Found INFORMATION SOURCE (unrecogn ized section and content) DATE CREATED AUTHOR 03/08/2018 [facility] DATE CREATED AUTHOR AUTHOR'S DANIELLEJERRICA [facility] Goals (unrecognized section and content) Goals may be documented in a n alternate sectionGoals may be documented in an alternate sectionGoals may be documented in an alternate sectionGoals may be documented in an alternate sectionGoals may be documented in an alternate sectionGoals may be documented in an alternate sectionGoals may be documented in an alternate section Care Teams (unrecognized sec tion and content) Team Status: Active Member Role Status Dates Dr. Birgit Mcclelladn DO Family Provider Active Dr. Birgit Mcclelland DO Primary Care Provider Active Team Status: Active Member Role Status Dates Dr. Birgit Mcclelland DO Primary Care Provider Active Health Risk Assessment Attending Provider, Referring P rita Active Team Status: Inactive Member Role Status Dates Dr. Birgit Mcclelland DO Primary Care Pr ovider, Attending Provider, Referring Provider Active Team Status: Inactive Member Role Status Dates Dr. Birgit Mcclelland DO Primary Care Provider Active Bhavin ANN PA-C Attending Provider, Referring Pr ovider Active Team Status: Inactive Member Role Status Dates Dr. Birgit Mcclelland DO Primary Care Provider Active Start: November 02, 2024 End: November 02, 2024 Dr. Birgit Mcclelland DO Attending Provider Active Start: November 02, 2024 End: November 02, 2024 Dr. Birgit Mcclelland DO Referring Provider Active Start: November 02, 2024 End: November 02, 2024 Team Status: Active Member Role/Relationship Status Dates Dr. Birgit Mcclelland DO Primary Care Provider Active Team Status: Inactive Member Role/Relationship Status Dates Dr. Birgit Mcclelland DO Primary Care Provider Active Start: March 31, 2025 End: March 31, 2025 Dr. Birgit Mcclelland DO Attending Provider Active Start: March 31, 2025 End: March 31, 2025 Dr. Birgit Mcclelland DO Referring Provider Active Start: March 31, 2025 End: March 31, 2025 Team Status: Active Member Role/Relationship Status Dates Dr. Birgit Mcclelland DO Primary Care Provider Active Start: March 31, 2025 Health Risk Assessment Attending Provider Active Start: March 31, 2025 Health Risk Assessment Referring Provider Active Start: March 31, 2025 FOR RECORDS PERTAINING TO PATIENTS WHO ARE [...] BE BASED ON THE PRIMARY CLINICAL RECORDS. [employer] provides no warranty or guarantee of the accuracy or completeness of information in this document.
--- OUTSIDE RECORDS SUMMARY | 2025-06-05 08:53 | XMS RPT_ITS | CCD ---
Author Organization [facility] Care Team Providers Care Director Business Travel Name Role Phone STACY Aceves RN, Kelin [...] Laci Dykes Unavailable Hussain Cesilia, Elise Unavailable [phone] Dick Moulton Unavailable Torres Tejeda Unavailable Fabiana Momin Unavailable Unavailable Mckenzie Curran L Unavailable Unavailable Pasquale, willam Unavailable Unavailable Manchak, Yue Unavailable Unavailable Morales Perea Unavailable Unavailable Unavailable Unavailable Hussain [place], Elise Unavailable Gravius, Yissel Unavailable Unavailable Manchak, Yue Unavailable Unavailable Messenger, Fabiana Unavailable Unavailable Slarb, Eboni Unavailable Unavailable Gravius, Yissel Unavailable Unavailable Morales Perea Unavailable Unavailable Unavailable Unavailable Morales Schaefer Unavailable Unavailable Stas DO, Birgit Unavailable Dino Alvarenga Unavailable Laci Dykes Unavailable Elise Wilcox Unavailable SaigeDick Unavailable Torres Tejeda MD Unavailable Gravius STRUCTURAL STEEL PAINTER, Yissel Unavailable Unavailable Merrill KUMAR, Fabiana Unavailable Unavailable Erin STRUCTURAL STEEL PAINTER, Yue Unavailable Unavailable Silvano EXTENSION SERVICE SPECIALIST IN CHARGE, Morales Unavailable Unavailable Unavailable Unavailable Unavailable Unavailable Birgit Mcclelland DO Unavailable Dr. Birgit Mcclelland Primary Care Provider Dr. Chadd Barron Attending Provider Dr. Nikolas Maher Referring Provider [facility] Unavailable Unavailable Stas CALDERON, Dr. Genao Primary Care Provider Stas CALDERON, Dr. Genao Attending Provider [phone] Stas CALDERON, Dr. Genao Referring Provider Stas CALDERON, Dr. Genao Primary Care Provider [phone] Stas CALDERON, Dr. Genao Attending Provider [phone] Stas CALDERON, Dr. Genao Referring Provider Assessment, [...] Drug Class(es) Dates Sig (Normalized) Sig (Original) [id number] 200 actuat albuterol 0.09 mg/actuat metered dose [...] capsule by mouth two times weekly Ergocalciferol 39122 UNIT Oral Capsule 1 (one) Capsule twice [...] Start: 02-12-2016 take 1 capsule by mo [facility] once daily Fenofibric Acid (Choline) (Trilipix) 135 [...] Quantity: 1 {Package} Refills: 0 Ordered: 04-Mar-2015 Inderjit TONYEboni Start : 29-Oct-2014 End : 04-Mar-2015 Discontinued nystatin 100 unt/mg topical powder (20 sources) Polyene Antifungal Start: 12-17-2008 End: 04-26-2011 NYSTATIN, [id number]/GM (External Powder) Powder Twice daily for 0 days Refills: 1 Ordered: 17-Dec-2008 Elizabeth Gunderson RN Start : 17-Dec-2008 End : 26-Apr-2011 Discontinued Comments: apply to socks and shoes dispense large container Start: 12-17-2008 End: 04-26-2011 NYSTATIN, [id number] (Ext ernal Powder) Powder Twice daily for 0 days Refills: 1 Ordered: 17-Dec-2008 Elizabeth Gunderson RN Start : 17-Dec-2008 End : 26-Apr-2011 Discontinued Comments: apply to socks and shoes dispense large container Comment on above: apply to socks and s hoes dispense large container polymyxin b 50705 unt/ml / trimethoprim 1 mg/ml ophthalmic solution (3 sources) Dihydrofolate Reductase Inhibitor Antibacterial, Polymyxin-class Antibacterial Start: 09-05-19 17 End: 09-12-19 17 take 1 drop(s) into the eye(s) every four hours POLYMYXIN B-TRIMETHOPRIM 28899-0.1 UNIT/ML-% SOLN One drop to affected eye every 4 hours POLYMYXIN B-TRIMETHOPRIM [id number] Everette ANN sertraline 100 mg oral tablet [...] : 26-Feb-2022 Inactive Comments: called verbal to [facility] 03/26 Start: 03-26-2017 End: 04-01-2019 take 1 tablet by mouth twice daily as needed Cialis 5 MG Oral Tablet 1 (one) Tablet Tablet bid prn for 0 days Quantity: 30 {Tablet} Refills: 0 Ordered: 01-Apr-2019 Yissel Milan Start : 26-Mar-2017 End : 01-Apr-2019 Inactive Comments: called verbal to [facility] 03/26 Comment on above: called verbal to [facility] 03/26 vitamin d3 (5 sources) vitamin d3 [...] codes; unclassified (20 sources) 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; 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 Episodic Residual codes; unclassified (11 sources) [...] Translations: [Screening status] 03-12-2018 Unclassified (20 sources) 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 Unclassified (20 sources) BMI 38.0-38.9,adult Unclassified (20 [...] Auto (Unsp spec) [#/Vol] 1.81 10*3/uL 0.83-4.51 [facility] Absolute lymphocyte countOrd ered By: HEALTH ASSESSMENT on 03-31-2025 Lymphocytes Auto (Unsp spec) [#/Vol] 1.72 10*3/uL 0.83-4.51 [facility] Absolute neutrophil countOrd ered By: Birgit Mcclelland on 03-31-2025 Neutrophils (Bld) [#/Vol] 3.4 10*3/uL 2.0-7.7 [facility] Absolute neutrophil countOrd ered By: HEALTH ASSESSMENT on 03-31-2025 Neutrophils (Bld) [#/Vol] 3.5 10*3/uL 2.0-7.7 [facility] Absolute nucleated red blood cell countOrdered By: HEALTH ASSESSMENT on 03-31-2025 Nucleated RBC (Bld) [#/Vol] 0.00 10*3/uL 0-5 [facility] Anion gap in Serum or Plasma Ordered By: HEALTH ASSESSMENT on 03-31-2025 Anion gap [Moles/Vol] 13 mmol/L 5- [facility] Automated lymphocyte count a s percentage of total leukocytesOrdered By: Birgit Stas on 03-31-2025 Lymphocytes/100 WBC Auto (Unsp spec) 31.6 % 19- [facility] BUN/creatinine ratioOrdered By: HEALTH ASSESSMENT on 03-31-2025 Urea nitrogen/Creatinine [Mass ratio] 12.1 mg/mg 10- [facility] Basophil percentageOrdered B y: Birgit Pulidoon on 03-31-2025 Basophils/100 WBC (Bld) 0.5 % 0- [facility] Bilirubin directOrdered By: HEALTH ASSESSMENT on 03-31-2025 Bilirubin.direct [Mass/Vol] 0.23 mg/dL 0.00-0.30 [facility] Bilirubin, totalOrdered By: HEALTH ASSESSMENT on 03-31-2025 Bilirubin [Mass/Vol] 0.63 mg/dL 0.00-1.30 [facility] CBC W/Diff, Automatedon 03-19 Absolute Lymph 1.81 X10 3/uL Normal 0.83-4.51 [facility] Comment on above: Performed By: #### L 500.2900, L100.0200 #### [facility] [address] [place], [address] Absolute Neut 3.4 X10 3/uL Normal 2.0-7.7 [facility] Comment on above: Performed By: #### L 500.2900, L100.0200 #### [facility] [address] [place], [address] Basophils/100 WBC (Bld) 0.5 % Normal 0-1 [facility] Comment on above: Performed By: #### L 500.2900, L100.0200 #### [facility] [address] [place], [address] Eosinophils/100 WBC (Bld) 2.6 % Normal 0-5 [facility] Comment on above: Performed By: #### L 500.2900, L100.0200 #### [facility] [address] [place], [address] Erythrocyte distribution width (RBC) [Ratio] 13.7 % Normal 11.6-14.6 [facility] Comment on above: Performed By: #### L 500.2900, L100.0200 #### [facility] [address] [place], [address] Hematocrit (Bld) [Volume fraction] 42.0 % Normal 40-54 [facility] Comment on above: Performed By: #### L 500.2900, L100.0200 #### [facility] [address] [place], [address] Hemoglobin (Bld) [Mass/Vol] 14.7 g/dL Normal 13.0-16.5 [facility] Comment on above: Performed By: #### L 500.2900, L100.0200 #### [facility] [address] [place], [address] IG% 0.300 Normal 0.0-0.9 [facility] Comment on above: Result Comment: IG% - Immature Granulocytes (promyelocytes, myelocytes and metamyelocytes) > 1% indicates that a LEFT SHIFT is Present. Performed By: #### L 500.2900, L100.0200 #### [facility] [address] [place], [address] Lymphocytes/100 WBC (Bld) 31.6 % Normal 19-41 [facility] Comment on above: Performed By: #### L 500.2900, L100.0200 #### [facility] [address] [place], [address] MCH (RBC) [Entitic mass] 29.5 pg Normal 27.0-32.0 [facility] Comment on above: Performed By: #### L 500.2900, L100.0200 #### [facility] [address] [place], [address] MCHC (RBC) [Mass/Vol] 35.0 g/dL Normal 32-36 [facility] Comment on above: Performed By: #### L 500.2900, L100.0200 #### [facility] [address] [place], [address] MCV (RBC) [Entitic vol] 84.3 fL Normal 80-94 [facility] Comment on above: Performed By: #### L 500.2900, L100.0200 #### [facility] [address] [place], [address] Monocytes/100 WBC (Bld) 6.1 % Normal 0-10 [facility] Comment on above: Performed By: #### L 500.2900, L100.0200 #### [facility] [address] [place], [address] Neutrophils/100 WBC (Bld) 58.9 % Normal 47-70 [facility] Comment on above: Performed By: #### L 500.2900, L100.0200 #### [facility] [address] [place], [address] Platelets (Bld) [#/Vol] 190 10*3/uL Normal 150-450 [facility] Comment on above: Performed By: #### L 500.2900, L100.0200 #### [facility] [address] [place], [address] RBC (Bld) [#/Vol] 4.98 10*6/uL Normal 4.6-6.2 [facility] Comment on above: Performed By: #### L 500.2900, L100.0200 #### [facility] [address] [place], [address] RDW SD 41.9 fl Normal 35.1-43.9 [facility] Comment on above: Performed By: #### L 500.2900, L100.0200 #### [facility] [address] [place], [address] WBC (Bld) [#/Vol] 5.7 10*3/uL Normal 4.4-11.0 [facility] Comment on above: Performed By: #### L 500.2900, L100.0200 #### [facility] [address] [place], [address] CBC, Employeeon 03-31-2025 Absolute Lymph 1.72 X10 3/uL Normal 0.83-4.51 [facility] Comment on above: Performed By: #### L 500.2900, L100.0200 #### [facility] [address] [place], [address] Absolute Neut 3.5 X10 3/uL Normal 2.0-7.7 [facility] Comment on above: Performed By: #### L 500.2900, L100.0200 #### [facility] [address] [place], [address] Basophils/100 WBC (Bld) 0.7 % Normal 0-1 [facility] Comment on above: Performed By: #### L 500.2900, L100.0200 #### [facility] [address] [place], [address] Eosinophils/100 WBC (Bld) 2.8 % Normal 0-5 [facility] Comment on above: Performed By: #### L 500.2900, L100.0200 #### [facility] [address] [place], [address] Erythrocyte distribution width (RBC) [Ratio] 13.5 % Normal 11.6-14.6 [facility] Comment on above: Performed By: #### L 500.2900, L100.0200 #### [facility] [address] [place], [address] Hematocrit (Bld) [Volume fraction] 41.8 % Normal 40-54 [facility] Comment on above: Performed By: #### L 500.2900, L100.0200 #### [facility] [address] [place], [address] Hemoglobin (Bld) [Mass/Vol] 14.4 g/dL Normal 13.0-16.5 [facility] Comment on above: Performed By: #### L 500.2900, L100.0200 #### [facility] [address] [place], [address] Lymphocytes/100 WBC (Bld) 29.6 % Normal 19-41 [facility] Comment on above: Performed By: #### L 500.2900, L100.0200 #### [facility] [address] [place], [address] MCH (RBC) [Entitic mass] 29.3 pg Normal 27.0-32.0 [facility] Comment on above: Performed By: #### L 500.2900, L100.0200 #### [facility] [address] [place], [address] MCHC (RBC) [Mass/Vol] 34.4 g/dL Normal 32-36 [facility] Comment on above: Performed By: #### L 500.2900, L100.0200 #### [facility] [address] [place], [address] MCV (RBC) [Entitic vol] 85.1 fL Normal 80-94 [facility] Comment on above: Performed By: #### L 500.2900, L100.0200 #### [facility] [address] [place], [address] Monocytes/100 WBC (Bld) 6.0 % Normal 0-10 [facility] Comment on above: Performed By: #### L 500.2900, L100.0200 #### [facility] [address] [place], [address] Neutrophils/100 WBC (Bld) 60.6 % Normal 47-70 [facility] Comment on above: Performed By: #### L 500.2900, L100.0200 #### [facility] [address] [place], [address] NRBC # 0.00 10 3/uL Normal 0-5 [facility] Comment on above: Performed By: #### L 500.2900, L100.0200 #### [facility] [address] [place], [address] Nucleated RBC (Bld) [#/Vol] 0 10*3/uL Normal 0-5 [facility] Comment on above: Performed By: #### L 500.2900, L100.0200 #### [facility] [address] [place], [address] Platelet mean volume (Bld) [Entitic vol] 10.2 fL Normal 6.2-12.0 [facility] Comment on above: Performed By: #### L 500.2900, L100.0200 #### [facility] [address] [place], [address] Platelets (Bld) [#/Vol] 191 10*3/uL Normal 150-450 [facility] Comment on above: Performed By: #### L 500.2900, L100.0200 #### [facility] [address] [place], [address] RBC (Bld) [#/Vol] 4.91 10*6/uL Normal 4.6-6.2 [facility] Comment on above: Performed By: #### L 500.2900, L100.0200 #### [facility] [address] [place], [address] RDW SD 41.5 fl Normal 35.1-43.9 [facility] Comment on above: Performed By: #### L 500.2900, L100.0200 #### [facility] [address] [place], [address] WBC (Bld) [#/Vol] 5.8 10*3/uL Normal 4.4-11.0 [facility] Comment on above: Performed By: #### L 500.2900, L100.0200 #### [facility] [address] [place], [address] Calculated very low density lipoprotein (VLDL) cholesterol measurementOrdered By: HEALTH ASSESSMENT on 03-31-2025 Calculated very low density lipoprotein (VLDL) cholesterol measurement 70 mg/dL High 5-40 [facility] Carbon dioxide, total [Moles /volume] in Central venous bloodOrdered By: HEALTH ASSESSMENT on 03-31-2025 CO2 [Moles/Vol] 20.9 mmol/L Low 21.0-32.0 [facility] Chloride assayOrdered By: HE ALTH ASSESSMENT on 03-31-2025 Chloride [Moles/Vol] 108 mmol/L 98-108 [facility] Employee Profileon CHOL:HDL 5.76 Normal [facility] Comment on above: Order Comment: CASEY Lam SEND RESULTS OF BMP LIVER TO PLEASE. Performed By: #### L 500.2900, L100.0200 #### [facility] [address] [place], [address] Cholesterol [Mass/Vol] 194 mg/dL Normal <=200 [facility] Comment on above: Order Comment: CASEY Lam SEND RESULTS OF BMP LIVER TO PLEASE. Result Comment: Chol esterol level, Desirable <200 mg/dL Borderline high cholesterol 200-239 mg/dL High cholesterol >=240 mg/dL Recommendations of the NCEP Adult Treatment Panel for the following risk-cutoff thresholds for the [place] population. Performed By: #### L 500.2900, L100.0200 #### [facility] [address] [place], [address] Cholesterol in HDL [Mass/Vol] 34 mg/dL Low [facility] Comment on above: Order Comment: ANGIEAS E [...] Performed By: #### L 500.2900, L100.0200 #### [facility] [address] [facility] [address] Cholesterol in LDL [Mass/Vol] 91 mg/dL Normal [facility] Comment on above: Order Comment: CASEY E SEND RESULTS OF BMP LIVER TO PLEASE. Result Comment: Bord tdwrnr=585-948 mg/dL Higher Cnck=515 mg/dL or greater Friedwald Equation for LDL-C Performed By: #### L 500.2900, L100.0200 #### [facility] [address] [facility] [address] Cholesterol in VLDL [Mass/Vol] 70 mg/dL High 5-40 [facility] Comment on above: Order Comment: CASEY E SEND RESULTS OF BMP LIVER TO PLEASE. Performed By: #### L 500.2900, L100.0200 #### [facility] [address] [facility] [address] LDH 211 U/L Normal 87-241 [facility] Comment on above: Order Comment: CASEY E SEND RESULTS OF BMP LIVER TO PLEASE. Performed By: #### L 500.2900, L100.0200 #### [facility] [address] [place], [address] Phosphate [Mass/Vol] 2.5 mg/dL Low 2.7-4.5 [facility] Comment on above: Order Comment: CASEY E SEND RESULTS OF BMP LIVER TO PLEASE. Performed By: #### L 500.2900, L100.0200 #### [facility] [address] [place], [address] Triglyceride [Mass/Vol] 349 mg/dL High [facility] Comment on above: Order Comment: CASEY E SEND RESULTS OF BMP LIVER TO PLEASE. Result Comment: The drugs N-Acetylcysteine and Metamizole may falsely depress this assay. Normal range: <150 mg/dL Borderline High: 150-199 mg/dL High: 200-499 mg/dL Very High: >500 mg/dL Performed By: #### L 500.2900, L100.0200 #### [facility] [address] [place], [address] URIC 7.7 mg/dL High 3.5-7.2 [facility] Comment on above: Order Comment: CASEY Lam SEND RESULTS OF BMP LIVER TO PLEASE. Result Comment: The drugs N-Acetylcysteine and Metamizole may falsely depress this assay. Performed By: #### L 500.2900, L100.0200 #### [facility] [address] [place], [address] Eosinophil percentageOrdered By: Birgit Mcclelland on 03-31-2025 Eosinophils/100 WBC (Bld) 2.6 % 0-5 [facility] Erythrocyte distribution wid th ratioOrdered By: Birgit Mcclelland on 03-31-2025 Erythrocyte distribution width (RBC) [Ratio] 13.7 % 11.6-14.6 [facility] Erythrocyte distribution wid th ratioOrdered By: HEALTH ASSESSMENT on 03-31-2025 Erythrocyte distribution width (RBC) [Ratio] 13.5 % 11.6-14.6 [facility] Erythrocyte distribution wid th standard deviationOrdered By: Birgit Mcclelland on 03-31-2025 Erythrocyte distribution width (RBC) [Ratio] 41.9 fl 35.1-43.9 [facility] Erythrocyte distribution wid th standard deviationOrdered By: HEALTH ASSESSMENT on 03-31-2025 Erythrocyte distribution width (RBC) [Ratio] 41.5 fl 35.1-43.9 [facility] Glomerular filtration rate ( GFR) estimation/1.73 sq m using serum, plasma, or whole bOrdered By: HEALTH ASSESSMENT on 03-31-2025 GFR/1.73 sq M.predicted among non-blacks MDRD (S/P/Bld) [Vol rate/Area] 78 mL/min/{1.73_m2} >60 [facility] Comment on above: mL/min/1.73m2 CKD-EP I Creatinine Equation (2020) Hematocrit Auto (Bld) [Volum e fraction]Ordered By: Birgit Mcclelland on 03-31-2025 Hematocrit (Bld) [Volume fraction] 42.0 % 40- [facility] Hematocrit Auto (Bld) [Volum e fraction]Ordered By: HEALTH ASSESSMENT on 03-31-2025 Hematocrit (Bld) [Volume fraction] 41.8 % 40-54 [facility] Hemoglobin A1con 03-31-2025 HbA1c (Bld) [Mass fraction] 5.8 % High <=5.6 [facility] Comment on above: Result Comment: Norm al < 5.7 % Prediabetic 5.7 - 6.4 % Diabetic >or= 6.5 % Please note range changes. Performed By: #### L 500.0533, L100.0200 #### [facility] [address] [place] [address]. [place], [address] Hemoglobin A1c percentageOrd ered By: Birgit Mcclelland on 03-31-2025 HbA1c (Bld) [Mass fraction] 5.8 % High <5.7 [facility] Comment on above: Normal < 5.7 % Predi abetic 5.7 - 6.4 % Diabetic >or= 6.5 % Please note range changes. Hemoglobin measurementOrdere d By: Birgit Mcclelland on 03-31-2025 Hemoglobin (Bld) [Mass/Vol] 14.7 g/dL 13.0-16.5 [facility] Hemoglobin measurementOrdere d By: HEALTH ASSESSMENT on 03-31-2025 Hemoglobin (Bld) [Mass/Vol] 14.4 g/dL 13.0-16.5 [facility] Immature granulocytes/100 WB C Auto (Bld)Ordered By: Birgit Mcclelland on 03-31-2025 Immature granulocytes/100 WBC (Bld) 0.300 % 0.0-0.9 [facility] Comment on above: IG% - Immature Granu locytes (promyelocytes, myelocytes and metamyelocytes) > 1% indicates that a LEFT SHIFT is Present. LDL calc ser/plasOrdered By: HEALTH ASSESSMENT on 03-31-2025 Cholesterol in LDL [Mass/Vol] 91 mg/dL [facility] Comment on above: Fzxyfkvvru=790-927 m g/dL & Higher Ubqr=750 mg/dL or greaterFriedwald Equation for LDL-C Laboratory - Chemistry and C hemistry - challengeOrdered By: HEALTH ASSESSMENT on 03-31-2025 AST [Catalytic activity/Vol] 59 U/L High <38 [facility] Lactate dehydrogenase (LDH) measurementOrdered By: HEALTH ASSESSMENT on 03-31-2025 LDH [Catalytic activity/Vol] 211 U/L 87-241 [facility] MCV (mean corpuscular volume ) determinationOrdered By: Birgit Mcclelland on 03-31-2025 MCV (RBC) [Entitic vol] 84.3 fL 80-94 [facility] MCV (mean corpuscular volume ) determinationOrdered By: HEALTH ASSESSMENT on 03-31-2025 MCV (RBC) [Entitic vol] 85.1 fL 80-94 [facility] Mean corpuscular hemoglobin (MCH) determinationOrdered By: Birgit Mcclelland on 03-31-2025 MCH (RBC) [Entitic mass] 29.5 pg 27.0-32.0 [facility] Mean corpuscular hemoglobin (MCH) determinationOrdered By: HEALTH ASSESSMENT on 03-31-2025 MCH (RBC) [Entitic mass] 29.3 pg 27.0-32.0 [facility] Mean corpuscular hemoglobin concentration (MCHC) determinationOrdered By: Birgit Mcclelland on 03-31-2025 MCHC (RBC) [Mass/Vol] 35.0 g/dL - [facility] Mean corpuscular hemoglobin concentration (MCHC) determinationOrdered By: HEALTH ASSESSMENT on 03-31-2025 MCHC (RBC) [Mass/Vol] 34.4 g/dL - [facility] Mean platelet volume determi nationOrdered By: Birgit Mcclelland on 03-31-2025 Platelet mean volume (Bld) [Entitic vol] 10.2 fL 6.2-12.0 [facility] Mean platelet volume determi nationOrdered By: HEALTH ASSESSMENT on 03-31-2025 Platelet mean volume (Bld) [Entitic vol] 10.2 fL 6.2-12.0 [facility] Monocyte percentageOrdered B y: Birgit Mcclelland on 03-31-2025 Monocytes/100 WBC (Bld) 6.1 % 0-10 [facility] Neutrophil percentageOrdered By: Birgit Mcclelland on 03-31-2025 Neutrophils/100 WBC (Bld) 58.9 % 47-70 [facility] Neutrophil percentageOrdered By: HEALTH ASSESSMENT on 03-31-2025 Neutrophils/100 WBC (Bld) 60.6 % 47-70 [facility] Nucleated red blood cell per centageOrdered By: Birgit Mcclelland on 03-31-2025 Nucleated RBC/100 WBC (Bld) [Ratio] 0 % 0-5 [facility] Nucleated red blood cell per centageOrdered By: HEALTH ASSESSMENT on 03-31-2025 Nucleated RBC/100 WBC (Bld) [Ratio] 0 % 0-5 [facility] Platelet countOrdered By: Heladio Mcclelland on 03-31-2025 Platelets (Bld) [#/Vol] 190 10*3/uL 150-450 [facility] Platelet countOrdered By: TRI ALTH ASSESSMENT on 03-31-2025 Platelets (Bld) [#/Vol] 191 10*3/uL 150-450 [facility] Potassium measurement (mass/ volume)Ordered By: HEALTH ASSESSMENT on 03-31-2025 Potassium (Unsp spec) [Mass/Vol] 3.5 mmol/L 3.3-5.1 [facility] RBC Auto (Bld) [#/Vol]Ordere d By: Birgit Mcclelland on 03-31-2025 RBC (Bld) [#/Vol] 4.98 10*6/uL 4.6-6.2 [facility] RBC Auto (Bld) [#/Vol]Ordere d By: HEALTH ASSESSMENT on 03-31-2025 RBC (Bld) [#/Vol] 4.91 10*6/uL 4.6-6.2 [facility] Screening total cholesterol/ high density lipoprotein (HDL) cholesterol ratioOrdered By: HEALTH ASSESSMENT on 03-31-2025 Cholesterol.total/Chol esterol in HDL [Mass ratio] 5.76 {ratio} [facility] Serum creatinine measurement (mass/volume)Ordered By: HEALTH ASSESSMENT on 03-31-2025 Creatinine [Mass/Vol] 1.09 mg/dL 0.70-1.20 [facility] Serum globulin measurementOr dered By: HEALTH ASSESSMENT on 03-31-2025 Globulin (S) [Mass/Vol] 2.9 g/dL 2.2-4.2 [facility] Serum glucose measurement (m ass/volume)Ordered By: HEALTH ASSESSMENT on 03-31-2025 Glucose [Mass/Vol] 163 mg/dL High 70-99 [facility] Serum or plasma alanine rodriguez otransferase (ALT) measurementOrdered By: HEALTH ASSESSMENT on 03-31-2025 ALT [Catalytic activity/Vol] 71 U/L High <47 [facility] Serum or plasma albumin andrés urement (mass/volume)Ordered By: HEALTH ASSESSMENT on 03-31-2025 Albumin [Mass/Vol] 4.4 g/dL 3.5-5.0 [facility] Serum or plasma albumin/glob ulin mass ratioOrdered By: HEALTH ASSESSMENT on 03-31-2025 Albumin/Globulin [Mass ratio] 1.5 {ratio} 0.9-2.4 [facility] Serum or plasma alkaline ang sphatase measurementOrdered By: HEALTH ASSESSMENT on 03-31-2025 ALP [Catalytic activity/Vol] 58 U/L 40-129 [facility] Serum or plasma calcium andrés urement (mass/volume)Ordered By: HEALTH ASSESSMENT on 03-31-2025 Calcium [Mass/Vol] 9.6 mg/dL 7.6-11.0 [facility] Serum or plasma cholesterol in HDL measurement (mass/volume)Ordered By: HEALTH ASSESSMENT on 03-31-2025 Cholesterol in HDL [Mass/Vol] 34 mg/dL Low >40 [facility] Comment on above: National Cholesterol Education Program (NCEP) guidelines:<40 mg/dL: Low HDL-cholesterol (major risk factor for CHD)>= 60 mg/dL: High HDL-cholesterol (negative risk factor for CHD)HDL-cholesterol is affected by a number of factors, e.g. smoking, exercise, hormones, sex and age. Serum or plasma cholesterol measurement (mass/volume)Ordered By: HEALTH ASSESSMENT on 03-31-2025 Cholesterol [Mass/Vol] 194 mg/dL <201 [facility] Comment on above: Cholesterol level, D esirable <200 mg/dLBorderline high cholesterol 200-239 mg/dLHigh cholesterol >=240 mg/dLRecommendations of the NCEP Adult Treatment Panel for the following risk-cutoff thresholds for the [place] population. Serum or plasma urea nitroge n measurement (mass/volume)Ordered By: HEALTH ASSESSMENT on 03-31-2025 Urea nitrogen [Mass/Vol] 13 mg/dL 4-19 [facility] Serum or plasma uric acid me asurement (mass/volume)Ordered By: [facility] ASSESSMENT on 03-31-2025 Urate [Mass/Vol] 7.7 mg/dL High 3.5-7.2 [facility] Comment on above: The drugs N-Acetylcy steine and Metamizole may falsely depress this assay. Sodium levelOrdered By: HEAL TH ASSESSMENT on 03-31-2025 Sodium [Moles/Vol] 142 mmol/L 133-145 [facility] TSH DL <= 0.005 mIU/L QnOrde red By: Birgit Mcclelland on 03-31-2025 TSH Qn 4.580 uIU/mL High 0.300-4.20 0 [facility] Thyroid Stim Hormone (TSH)on 03-31-2025 TSH 4.580 uIU/mL High 0.300-4.20 0 [facility] Comment on above: Performed By: #### L 500.2900, L100.0200 #### [facility] Laboratory [facility] [place], [address] Total proteinOrdered By: [facility] ASSESSMENT on 03-31-2025 Protein [Mass/Vol] 7.3 g/dL 5.9-8.4 [facility] Triglycerides measurementOrd ered By: HEALTH ASSESSMENT on 03-31-2025 Triglyceride [Mass/Vol] 349 mg/dL High <199 [facility] Comment on above: The drugs N-Acetylcy steine and Metamizole may falsely depress this assay. Normal range: <150 mg/dLBorderline High: 150-199 mg/dLHigh: 200-499 mg/dLVery High: >500 mg/dL White blood cell (WBC) count Ordered By: Birgit Mcclelland on 03-31-2025 WBC (Bld) [#/Vol] 5.7 10*3/uL 4.4-11.0 [facility] White blood cell (WBC) count Ordered By: HEALTH ASSESSMENT on 03-31-2025 WBC (Bld) [#/Vol] 5.8 10*3/uL 4.4-11.0 [facility] Hemoglobin A1con 11-02-2024 HbA1c (Bld) [Mass fraction] 6.0 % Normal <=5.6 [facility] Comment on above: Performed By: #### L 501.9985 #### [facility] [address] [place], [place], [address] Hemoglobin A1c percentageOrd ered By: Birgit Mcclelland on 11-02-2024 HbA1c (Bld) [Mass fraction] 6.0 % >5.7 [facility] Hemoglobin A1con 07-13-2024 HbA1c (Bld) [Mass fraction] 5.7 % High 3.8-5.6 [facility] Comment on above: Result Comment: Norm al < 5.7 % Prediabetic 5.7 - 6.4 % Diabetic >or= 6.5 % Please note range changes. Performed By: #### L 501.2300, L501.9985, L501.9520, L501.1400 #### [facility] [address] [place], [place], [address] Phosphoruson 07-13-2024 Phosphate [Mass/Vol] 2.6 mg/dL Normal 2.5-4.9 [facility] Comment on above: Performed By: #### L 501.2300, L501.9985, L501.9520, L501.1400 #### [facility] [address] [place], [address] Thyroid Stim Hormone (TSH)on 07-13-2024 TSH 8.560 uIU/mL High 0.358-3.74 0 [facility] Comment on above: Performed By: #### L 501.2300, L501.9985, L501.9520, L501.1400 #### [facility] [address] [place], [address] Uric Acidon 07-13-2024 URIC 9.6 mg/dL High 3.5-7.2 [facility] Comment on above: Result Comment: The drugs N-Acetylcysteine and Metamizole may falsely depress this assay. Performed By: #### L 501.2300, L501.9985, L501.9520, L501.1400 #### [facility] [address] [place], [address] CBC, Employeeon 05-15-2024 Absolute Lymph 2.37 X10 3/uL Normal 0.83-4.51 [facility] Comment on above: Performed By: #### L 500.2900, L400.0100, L100.0200 #### [facility] [address] [place], [address] Absolute Neut 4.4 X10 3/uL Normal 2.0-7.7 [facility] Comment on above: Performed By: #### L 500.2900, L400.0100, L100.0200 #### [facility] [address] [place], [address] Basophils/100 WBC (Bld) 0.4 % Normal 0-1 [facility] Comment on above: Performed By: #### L 500.2900, L400.0100, L100.0200 #### [facility] [address] [place], [address] Eosinophils/100 WBC (Bld) 2.6 % Normal 0-5 [facility] Comment on above: Performed By: #### L 500.2900, L400.0100, L100.0200 #### [facility] [address] [place], [address] Erythrocyte distribution width (RBC) [Ratio] 13.6 % Normal 11.6-14.6 [facility] Comment on above: Performed By: #### L 500.2900, L400.0100, L100.0200 #### [facility] [address] [place], [address] Hematocrit (Bld) [Volume fraction] 46.3 % Normal 40-54 [facility] Comment on above: Performed By: #### L 500.2900, L400.0100, L100.0200 #### [facility] [address] [place], [address] Hemoglobin (Bld) [Mass/Vol] 15.5 g/dL Normal 13.0-16.5 [facility] Comment on above: Performed By: #### L 500.2900, L400.0100, L100.0200 #### [facility] [address] [place], [address] Lymphocytes/100 WBC (Bld) 32.3 % Normal 19-41 [facility] Comment on above: Performed By: #### L 500.2900, L400.0100, L100.0200 #### [facility] [address] [place], [address] MCH (RBC) [Entitic mass] 28.3 pg Normal 27.0-32.0 [facility] Comment on above: Performed By: #### L 500.2900, L400.0100, L100.0200 #### [facility] [address] [place], [address] MCHC (RBC) [Mass/Vol] 33.5 g/dL Normal 32-36 [facility] Comment on above: Performed By: #### L 500.2900, L400.0100, L100.0200 #### [facility] [address] [place], [address] MCV (RBC) [Entitic vol] 84.6 fL Normal 80-94 [facility] Comment on above: Performed By: #### L 500.2900, L400.0100, L100.0200 #### [facility] [address] [place], [address] Monocytes/100 WBC (Bld) 4.9 % Normal 0-10 [facility] Comment on above: Performed By: #### L 500.2900, L400.0100, L100.0200 #### [facility] [address] [place], [address] Neutrophils/100 WBC (Bld) 59.4 % Normal 47-70 [facility] Comment on above: Performed By: #### L 500.2900, L400.0100, L100.0200 #### [facility] [address] [place], [address] NRBC # 0.00 10 3/uL Normal 0-5 [facility] Comment on above: Performed By: #### L 500.2900, L400.0100, L100.0200 #### [facility] [address] [place], [address] Nucleated RBC (Bld) [#/Vol] 0 10*3/uL Normal 0-5 [facility] Comment on above: Performed By: #### L 500.2900, L400.0100, L100.0200 #### [facility] [address] [place], [address] Platelet mean volume (Bld) [Entitic vol] 9.7 fL Normal 6.2-12.0 [facility] Comment on above: Performed By: #### L 500.2900, L400.0100, L100.0200 #### [facility] [address] [place], [address] Platelets (Bld) [#/Vol] 197 10*3/uL Normal 150-450 [facility] Comment on above: Performed By: #### L 500.2900, L400.0100, L100.0200 #### [facility] [address] [place], [address] RBC (Bld) [#/Vol] 5.47 10*6/uL Normal 4.6-6.2 [facility] Comment on above: Performed By: #### L 500.2900, L400.0100, L100.0200 #### [facility] [address] [place], [address] RDW SD 41.8 fl Normal 35.1-43.9 [facility] Comment on above: Performed By: #### L 500.2900, L400.0100, L100.0200 #### [facility] [address] [place], [address] WBC (Bld) [#/Vol] 7.3 10*3/uL Normal 4.4-11.0 [facility] Comment on above: Performed By: #### L 500.2900, L400.0100, L100.0200 #### [facility] [address] [place], [address] Employee Profileon 4 Albumin [Mass/Vol] 3.9 g/dL Normal 3.2-5.0 [facility] Comment on above: Performed By: #### L 500.2900, L400.0100, L100.0200 #### [facility] [address] [place], [address] Albumin/Globulin [Mass ratio] 1.0 {ratio} Normal 0.9-2.4 [facility] Comment on above: Performed By: #### L 500.2900, L400.0100, L100.0200 #### [facility] [address] [place], [address] ALK P 78 U/L Normal 45-117 [facility] Comment on above: Performed By: #### L 500.2900, L400.0100, L100.0200 #### [facility] [address] [place], [address] ALT [Catalytic activity/Vol] 50 U/L Normal 16-61 [facility] Comment on above: Performed By: #### L 500.2900, L400.0100, L100.0200 #### [facility] [address] [place], [address] AST [Catalytic activity/Vol] 36 U/L Normal 15-37 [facility] Comment on above: Performed By: #### L 500.2900, L400.0100, L100.0200 #### [facility] [address] [place], [address] Bilirubin [Mass/Vol] 1.40 mg/dL High 0.20-1.00 [facility] Comment on above: Result Comment: For patients on eltrombopag therapy, use of Dimension [place] TBIL is not recommended. Performed By: #### L 500.2900, L400.0100, L100.0200 #### [facility] [address] [place], [address] Bilirubin.direct [Mass/Vol] 0.23 mg/dL Normal 0.00-0.30 [facility] Comment on above: Performed By: #### L 500.2900, L400.0100, L100.0200 #### [facility] [address] [place], [address] BUN/CRE 8.5 RATIO Low 10-20 [facility] Comment on above: Performed By: #### L 500.2900, L400.0100, L100.0200 #### [facility] [address] [place], [address] CA,Total 9.5 mg/dL Normal 8.5-10.1 [facility] Comment on above: Performed By: #### L 500.2900, L400.0100, L100.0200 #### [facility] [address] [place], [address] Chloride [Moles/Vol] 108 mmol/L High 98-107 [facility] Comment on above: Performed By: #### L 500.2900, L400.0100, L100.0200 #### [facility] [address] [place], [address] CHOL:HDL 5.40 Normal [facility] Comment on above: Performed By: #### L 500.2900, L400.0100, L100.0200 #### [facility] [address] [place], [address] Cholesterol [Mass/Vol] 174 mg/dL Normal 200 [facility] Comment on above: Result Comment: <200 mg/dL Desirable 200-240 mg/dL Borderline >240 mg/dL High Risk Performed By: #### L 500.2900, L400.0100, L100.0200 #### [facility] [address] [place], [address] Cholesterol in HDL [Mass/Vol] 32 mg/dL Low [facility] Comment on above: Result Comment: The drugs N-Acetylcysteine and Metamizole may falsely depress this assay. Reference Range HDL <40 mg/dL Low HDL Cholesterol HDL >or= 60 mg/dL High HDL Cholesterol Performed By: #### L 500.2900, L400.0100, L100.0200 #### [facility] [address] [place], [address] Cholesterol in LDL [Mass/Vol] 80 mg/dL Normal 0-130 [facility] Comment on above: Performed By: #### L 500.2900, L400.0100, L100.0200 #### [facility] [address] [place], [address] Cholesterol in VLDL [Mass/Vol] 62 mg/dL High 5-40 [facility] Comment on above: Performed By: #### L 500.2900, L400.0100, L100.0200 #### [facility] [address] [place], [address] CO2 [Moles/Vol] 28.0 mmol/L Normal 21.0-32.0 [facility] Comment on above: Performed By: #### L 500.2900, L400.0100, L100.0200 #### [facility] [address] [place], [address] Creatinine [Mass/Vol] 1.17 mg/dL Normal 0.70-1.30 [facility] Comment on above: Result Comment: The validity of the calculated GFR GFRAA in patients over 70 years has not been determined. Clinical correlation is essential. Performed By: #### L 500.2900, L400.0100, L100.0200 #### [facility] [address] [place], [address] EST GFR - AA 82 mL/min Normal >60 [facility] Comment on above: Result Comment: Afri can [place] GFR Calc Performed By: #### L 500.2900, L400.0100, L100.0200 #### [facility] [address] [place], [address] GAP 6 Normal 5-15 [facility] Comment on above: Performed By: #### L 500.2900, L400.0100, L100.0200 #### [facility] [address] [place], [address] GFR/1.73 sq M.predicted among non-blacks MDRD (S/P/Bld) [Vol rate/Area] 68 mL/min/{1.73_m2} Normal >60 [facility] Comment on above: Result Comment: Non- GFR Calc Performed By: #### L 500.2900, L400.0100, L100.0200 #### [facility] [address] [place], [address] Globulin (S) [Mass/Vol] 3.9 g/dL Normal 2.2-4.2 [facility] Comment on above: Performed By: #### L 500.2900, L400.0100, L100.0200 #### [facility] [address] [place], [address] Glucose [Mass/Vol] 132 mg/dL High 74-106 [facility] Comment on above: Result Comment: Fast ing Glucose result greater than or equal to 126 mg/dL suggests DIABETES MELLITUS per A.D.A. criteria. Performed By: #### L 500.2900, L400.0100, L100.0200 #### [facility] [address] [place], [address] LDH 200 U/L Normal 87-241 [facility] Comment on above: Performed By: #### L 500.2900, L400.0100, L100.0200 #### [facility] [address] [place], [address] Phosphate [Mass/Vol] 2.1 mg/dL Low 2.5-4.9 [facility] Comment on above: Performed By: #### L 500.2900, L400.0100, L100.0200 #### [facility] [address] [place], [address] Potassium [Moles/Vol] 3.5 mmol/L Normal 3.5-5.1 [facility] Comment on above: Performed By: #### L 500.2900, L400.0100, L100.0200 #### [facility] [address] [place], [address] Sodium [Moles/Vol] 141 mmol/L Normal 136-145 [facility] Comment on above: Performed By: #### L 500.2900, L400.0100, L100.0200 #### [facility] [address] [place], [address] T PROT 7.8 g/dL Normal 6.4-8.2 [facility] Comment on above: Performed By: #### L 500.2900, L400.0100, L100.0200 #### [facility] [address] [place], [address] Triglyceride [Mass/Vol] 308 mg/dL High [facility] Comment on above: Result Comment: The drugs N-Acetylcysteine and Metamizole may falsely depress this assay. Serum Triglycerides Reference Interval Normal <150 mg/dL Borderline high 150 - 199 mg/dL High 200 - 499 mg/dL Very High > or = 500 mg/dL Performed By: #### L 500.2900, L400.0100, L100.0200 #### [facility] [address] [place], [address] Urea nitrogen [Mass/Vol] 10 mg/dL Normal 7-18 [facility] Comment on above: Performed By: #### L 500.2900, L400.0100, L100.0200 #### [facility] [address] [place], [address] URIC 8.8 mg/dL High 3.5-7.2 [facility] Comment on above: Result Comment: The drugs N-Acetylcysteine and Metamizole may falsely depress this assay. Performed By: #### L 500.2900, L400.0100, L100.0200 #### [facility] [address] [place], [address] Urinalysis, Employeeon 05-15 BILIRUBIN URINE Normal Negative [facility] Comment on above: Order Comment: CLEAN CATCH Result Comment: NOT WANTED Performed By: #### L 500.2900, L400.0100, L100.0200 #### [facility] [address] [place], [address] Clarity (U) Normal Clear [facility] Comment on above: Order Comment: CLEAN CATCH Result Comment: NOT WANTED Performed By: #### L 500.2900, L400.0100, L100.0200 #### [facility] [address] [place], [address] Color (U) Normal Yellow [facility] Comment on above: Order Comment: CLEAN CATCH Result Comment: NOT WANTED Performed By: #### L 500.2900, L400.0100, L100.0200 #### [facility] [address] [place], [address] GLUCOSE, UR Normal Normal [facility] Comment on above: Order Comment: CLEAN CATCH Result Comment: NOT WANTED Performed By: #### L 500.2900, L400.0100, L100.0200 #### [facility] [address] [place], [address] KETONE UR Normal Negative [facility] Comment on above: Order Comment: CLEAN CATCH Result Comment: NOT WANTED Performed By: #### L 500.2900, L400.0100, L100.0200 #### [facility] [address] [place], [address] LEUK ESTERASE Normal Negative [facility] Comment on above: Order Comment: CLEAN CATCH Result Comment: NOT WANTED Performed By: #### L 500.2900, L400.0100, L100.0200 #### [facility] [address] [place], [address] Nitrite Ql (U) Normal Negative [facility] Comment on above: Order Comment: CLEAN CATCH Result Comment: NOT WANTED Performed By: #### L 500.2900, L400.0100, L100.0200 #### [facility] [address] [place], [address] OCCULT BLOOD-UR Normal Negative [facility] Comment on above: Order Comment: CLEAN CATCH Result Comment: NOT WANTED Performed By: #### L 500.2900, L400.0100, L100.0200 #### [facility] [address] [place], [address] pH UR Normal 5.0 - 8.0 [facility] Comment on above: Order Comment: CLEAN CATCH Result Comment: NOT WANTED Performed By: #### L 500.2900, L400.0100, L100.0200 #### [facility] [address] [place], [address] PROT DIPSTX Normal Negative [facility] Comment on above: Order Comment: CLEAN CATCH Result Comment: NOT WANTED Performed By: #### L 500.2900, L400.0100, L100.0200 #### [facility] [address] [place], [address] SP.GR. DIPSTX Normal 1.002-1.03 0 [facility] Comment on above: Order Comment: CLEAN CATCH Result Comment: NOT WANTED Performed By: #### L 500.2900, L400.0100, L100.0200 #### [facility] [address] [place], [address] UR Preservative Normal [facility] Comment on above: Order Comment: CLEAN CATCH Result Comment: NOT WANTED Performed By: #### L 500.2900, L400.0100, L100.0200 #### [facility] [address] [place], [address] UROBILI Normal Normal [facility] Comment on above: Order Comment: CLEAN CATCH Result Comment: NOT WANTED Performed By: #### L 500.2900, L400.0100, L100.0200 #### [facility] [address] [place], [address] No Panel InformationOrdered By: Birgti Mcclelland on 08-16-2023 Thyroid Stimulating Hormone (TSH) 4.15 uIU/mL 0.358-3.74 [facility] Basophil percentageOrdered B y: Birgit Mcclelland on 06-21-2023 Chloride [Moles/Vol] 108 mmol/L 98-107 [facility] Glucose [Mass/Vol] 128 mg/dL 74-106 [facility] Comment on above: Fasting Glucose resu lt greater than or equal to 126 mg/dL suggests DIABETES MELLITUS per A.D.A. criteria. Potassium [Moles/Vol] 3.3 mmol/L 3.5-5.1 [facility] Sodium [Moles/Vol] 138 mmol/L 136-145 [facility] - Chemistry and C hemistry - challengeOrdered By: Birgit Mcclelland on 06-21-2023 CO2 [Moles/Vol] 24.0 mmol/L 21.0-32.0 [facility] Urea nitrogen/Creatinine [Mass ratio] 9.6 mg/mg 10-20 [facility] No Panel InformationOrdered By: Birgit Mcclelland on 06-21-2023 Estimated GFR (MDRD) Amer 70 mL/min >60 [facility] Comment on above: GFR Calc Estimated GFR (MDRD) Non-Af Amer 58 mL/min >60 [facility] Comment on above: Non- GFR Calc Thyroid Stimulating Hormone (TSH) 4.82 uIU/mL 0.358-3.74 [facility] Serum or plasma calcium andrés urement (mass/volume)Ordered By: Birgit Mcclelland on 06-21-2023 Calcium [Mass/Vol] 9.2 mg/dL 8.5-10.1 [facility] Serum or plasma creatinine m easurement (mass/volume)Ordered By: Birgit Mcclelland on 06-21-2023 Creatinine [Mass/Vol] 1.35 mg/dL 0.70-1.30 [facility] Comment on above: The validity of the calculated GFR & GFRAA in patients over 70 years has not been determined. Clinical correlation is essential. Serum or plasma urea nitroge n measurement (mass/volume)Ordered By: Birgit Mcclelland on 06-21-2023 Urea nitrogen [Mass/Vol] 13 mg/dL 7-18 [facility] Thin prep Papanicolaou smear with manual screeningOrdered By: Birgit Mcclelland on 06-21-2023 Thin prep Papanicolaou smear with manual screening 6 5-15 [facility] Whole blood hemoglobin A1c/t otal hemoglobin ratio (mass fraction)Ordered By: Birgit Mcclelland on 06-21-2023 HbA1c (Bld) [Mass fraction] 5.6 % 3.8-5.6 [facility] Comment on above: Normal < 5.7 % Predi abetic 5.7 - 6.4 % Diabetic >or= 6.5 % Please note range changes. Absolute lymphocyte countOrd ered By: HEALTH ASSESSMENT on 05-14-2023 Lymphocytes Auto (Unsp spec) [#/Vol] 1.64 10*3/uL 0.83-4.51 [facility] Absolute reticulocyte countO rdered By: HEALTH ASSESSMENT on 05-14-2023 Reticulocytes (Bld) [#/Vol] 0.00 10*3/uL 0-5 [facility] Basophil percentageOrdered B y: HEALTH ASSESSMENT on 05-14-2023 Basophil percentage 1.7 mg/dL 2.5-4.9 [facility] Bilirubin [Mass/Vol] 0.70 mg/dL 0.20-1.00 [facility] Comment on above: For patients on eltr ombopag therapy, use of Dimension [place] TBIL is not recommended. Chloride [Moles/Vol] 108 mmol/L 98-107 [facility] Cholesterol [Mass/Vol] 166 mg/dL <200 [facility] Comment on above: <200 mg/dL Desirable 200-240 mg/dL Borderline >240 mg/dL High Risk Glucose [Mass/Vol] 152 mg/dL 74-106 [facility] Comment on above: Fasting Glucose resu lt greater than or equal to 126 mg/dL suggests DIABETES MELLITUS per A.D.A. criteria. LDH [Catalytic activity/Vol] 197 U/L 87-241 [facility] Neutrophils (Bld) [#/Vol] 4.3 10*3/uL 2.0-7.7 [facility] Potassium [Moles/Vol] 3.7 mmol/L 3.5-5.1 [facility] Protein [Mass/Vol] 7.7 g/dL 6.4-8.2 [facility] Sodium [Moles/Vol] 140 mmol/L 136-145 [facility] Triglyceride [Mass/Vol] 283 mg/dL <199 [facility] Comment on above: The drugs N-Acetylcy steine and Metamizole may falsely depress this assay.Serum Triglycerides Reference Interval Normal <150 mg/dL Borderline high 150 - 199 mg/dL High 200 - 499 mg/dL Very High > or = 500 mg/dL WBC (Bld) [#/Vol] 6.6 10*3/uL 4.4-11.0 [facility] Blood erythrocytes count (nu mber/volume)Ordered By: HEALTH ASSESSMENT on 05-14-2023 RBC (Bld) [#/Vol] 5.12 10*6/uL 4.6-6.2 [facility] Blood hemoglobin measurement (mass/volume)Ordered By: HEALTH ASSESSMENT on 05-14-2023 Hemoglobin (Bld) [Mass/Vol] 15.3 g/dL 13.0-16.5 [facility] Blood platelet mean volumeOr dered By: HEALTH ASSESSMENT on 05-14-2023 Platelet mean volume (Bld) [Entitic vol] 9.5 fL 6.2-12.0 [facility] Determination of erythrocyte mean corpuscular volume (MCV)Ordered By: HEALTH ASSESSMENT on 05-14-2023 MCV (RBC) [Entitic vol] 85.9 fL 80-94 [facility] Direct bilirubinOrdered By: HEALTH ASSESSMENT on 05-14-2023 Bilirubin.direct [Mass/Vol] 0.20 mg/dL 0.00-0.30 [facility] Hematocrit Auto (Bld) [Volum e fraction]Ordered By: HEALTH ASSESSMENT on 05-14-2023 Hematocrit (Bld) [Volume fraction] 44.0 % 40-54 [facility] Laboratory - Chemistry and C hemistry - challengeOrdered By: HEALTH ASSESSMENT on 05-14-2023 ALP [Catalytic activity/Vol] 65 U/L 45-117 [facility] ALT [Catalytic activity/Vol] 76 U/L 16-61 [facility] Cholesterol.total/Chol esterol in HDL [Mass ratio] 5.00 {ratio} [facility] CO2 [Moles/Vol] 27.0 mmol/L 21.0-32.0 [facility] Globulin (S) [Mass/Vol] 3.9 g/dL 2.2-4.2 [facility] Urea nitrogen/Creatinine [Mass ratio] 7.6 mg/mg 10-20 [facility] Laboratory - Hematology and Cell countsOrdered By: HEALTH ASSESSMENT on 05-14-2023 Erythrocyte distribution width (RBC) [Entitic vol] 41.0 fL 35.1-43.9 [facility] Erythrocyte distribution width (RBC) [Ratio] 13.3 % 11.6-14.6 [facility] MCH (RBC) [Entitic mass] 29.9 pg 27.0-32.0 [facility] Nucleated RBC/100 WBC (Bld) [Ratio] 0 % 0-5 [facility] MCHC Auto (RBC) [Mass/Vol]Or dered By: HEALTH ASSESSMENT on 05-14-2023 MCHC (RBC) [Mass/Vol] 34.8 g/dL 32-36 [facility] No Panel InformationOrdered By: HEALTH ASSESSMENT on 05-14-2023 Estimated GFR (MDRD) Amer 72 mL/min >60 [facility] Comment on above: GFR Calc Estimated GFR (MDRD) Non-Af Amer 59 mL/min >60 [facility] Comment on above: Non- GFR Calc Platelets bldOrdered By: YASMIN LTH ASSESSMENT on 05-14-2023 Platelets (Bld) [#/Vol] 193 10*3/uL 150-450 [facility] Segmented neutrophils/100 WB C Auto (Bld)Ordered By: HEALTH ASSESSMENT on 05-14-2023 Segmented neutrophils/100 WBC (Bld) 64.9 % 47-70 [facility] Serum or plasma albumin andrés urement (mass/volume)Ordered By: HEALTH ASSESSMENT on 05-14-2023 Albumin [Mass/Vol] 3.8 g/dL 3.2-5.0 [facility] Serum or plasma albumin/glob ulin mass ratioOrdered By: HEALTH ASSESSMENT on 05-14-2023 Albumin/Globulin [Mass ratio] 1.0 {ratio} 0.9-2.4 [facility] Serum or plasma calcium andrés urement (mass/volume)Ordered By: HEALTH ASSESSMENT on 05-14-2023 Calcium [Mass/Vol] 9.1 mg/dL 8.5-10.1 [facility] Serum or plasma cholesterol in HDL measurement (mass/volume)Ordered By: HEALTH ASSESSMENT on 05-14-2023 Cholesterol in HDL [Mass/Vol] 33 mg/dL >40 [facility] Comment on above: The drugs N-Acetylcy steine and Metamizole may falsely depress this assay. Reference Range HDL <40 mg/dL Low HDL Cholesterol HDL >or= 60 mg/dL High HDL Cholesterol Serum or plasma cholesterol in VLDL measurement (mass/volume)Ordered By: HEALTH ASSESSMENT on 05-14-2023 Cholesterol in VLDL [Mass/Vol] 57 mg/dL 5-40 [facility] Serum or plasma creatinine m easurement (mass/volume)Ordered By: HEALTH ASSESSMENT on 05-14-2023 Creatinine [Mass/Vol] 1.32 mg/dL 0.70-1.30 [facility] Comment on above: The validity of the calculated GFR & GFRAA in patients over 70 years has not been determined. Clinical correlation is essential. Serum or plasma low density lipoprotein (LDL) cholesterol measurement (mass/volume)Ordered By: HEALTH ASSESSMENT on 05-14-2023 Cholesterol in LDL [Mass/Vol] 76 mg/dL 0-130 [facility] Serum or plasma urea nitroge n measurement (mass/volume)Ordered By: HEALTH ASSESSMENT on 05-14-2023 Urea nitrogen [Mass/Vol] 10 mg/dL 7-18 [facility] Serum or plasma uric acid me asurement (mass/volume)Ordered By: HEALTH ASSESSMENT on 05-14-2023 Urate [Mass/Vol] 6.0 mg/dL 3.5-7.2 [facility] Comment on above: The drugs N-Acetylcy steine and Metamizole may falsely depress this assay. Thin prep Papanicolaou smear with manual screeningOrdered By: HEALTH ASSESSMENT on 05-14-2023 Thin prep Papanicolaou smear with manual screening 59 U/L 15-37 [facility] Thin prep Papanicolaou smear with manual screening 5 5-15 [facility] Glucose Glucometer (BldC) [M ass/Vol]on 03-21-2022 Glucose [Mass/Vol] 173 mg/dL 74-106 [facility] Work Phone: Comment on above: MANAGEMENT OF PATIEN T CARE PER NURSING PROTOCOL Absolute lymphocyte counton 02-26-2022 Lymphocytes Auto (Unsp spec) [#/Vol] 1.85 10*3/uL 0.83-4.51 [facility] Work Phone: Basophil percentageon 2021 Basophils/100 WBC (Bld) 0.4 % 0-1 [facility] Work Phone: Bilirubin [Mass/Vol] 0.50 mg/dL 0.20-1.00 [facility] Work Phone: Comment on above: For patients on eltr ombopag therapy, use of Dimension [place] TBIL is not recommended. Chloride [Moles/Vol] 108 mmol/L 98-107 [facility] Work Phone: Cholesterol [Mass/Vol] 195 mg/dL <200 [facility] Work Phone: Comment on above: <200 mg/dL Desirable 200-240 mg/dL Borderline >240 mg/dL High Risk Eosinophils/100 WBC (Bld) 2.0 % 0-5 [facility] Work Phone: Glucose [Mass/Vol] 115 mg/dL 74-106 [facility] Work Phone: Comment on above: Fasting Glucose resu lt from 100 to 125 mg/dL suggests IMPAIRED HOMEOSTASIS per A.D.A. criteria. Neutrophils (Bld) [#/Vol] 4.9 10*3/uL 2.0-7.7 [facility] Work Phone: Neutrophils/100 WBC (Bld) 65.3 % 47-70 [facility] Work Phone: Potassium [Moles/Vol] 3.7 mmol/L 3.5-5.1 [facility] Work Phone: Protein [Mass/Vol] 7.4 g/dL 6.4-8.2 [facility] Work Phone: Sodium [Moles/Vol] 143 mmol/L 136-145 [facility] Work Phone: Triglyceride [Mass/Vol] 289 mg/dL <199 [facility] Work Phone: Comment on above: The drugs N-Acetylcy steine and Metamizole may falsely depress this assay.Serum Triglycerides Reference Interval Normal <150 mg/dL Borderline high 150 - 199 mg/dL High 200 - 499 mg/dL Very High > or = 500 mg/dL WBC (Bld) [#/Vol] 7.6 10*3/uL 4.4-11.0 [facility] Work Phone: Blood erythrocytes count (nu mber/volume)on 02-26-2022 RBC (Bld) [#/Vol] 4.83 10*6/uL 4.6-6.2 [facility] Work Phone: Blood hemoglobin measurement (mass/volume)on 02-26-2022 Hemoglobin (Bld) [Mass/Vol] 14.1 g/dL 13.0-16.5 [facility] Work Phone: Blood lymphocytes/100 leukoc yteson 02-26-2022 Lymphocytes/100 WBC (Bld) 24.4 % 19-41 [facility] Work Phone: Blood monocytes/100 leukocyt eson 02-26-2022 Monocytes/100 WBC (Bld) 7.4 % 0-10 [facility] Work Phone: Blood platelet mean volumeon 02-26-2022 Platelet mean volume (Bld) [Entitic vol] 10.1 fL 6.2-12.0 [facility] Work Phone: Determination of erythrocyte mean corpuscular volume (MCV)on 02-26-2022 MCV (RBC) [Entitic vol] 87.2 fL 80-94 [facility] Work Phone: Hematocrit Auto (Bld) [Volum e fraction]on 02-26-2022 Hematocrit (Bld) [Volume fraction] 42.1 % 40-54 [facility] Work Phone: INR in Blood by Coagulation assayon 02-26-2022 INR Coag (Bld) [Relative time] 1.0 {INR} [facility] Work Phone: Laboratory - Chemistry and C hemistry - challengeon 02-26-2022 Magnesium [Mass/Vol] 1.9 mg/dL 1.6-2.6 [facility] Work Phone: ALP [Catalytic activity/Vol] 56 U/L 45-117 [facility] Work Phone: ALT [Catalytic activity/Vol] 62 U/L 16-61 [facility] Work Phone: CO2 [Moles/Vol] 28.0 mmol/L 21.0-32.0 [facility] Work Phone: Globulin (S) [Mass/Vol] 3.5 g/dL 2.2-4.2 [facility] Work Phone: Urea nitrogen/Creatinine [Mass ratio] 14.2 mg/mg 10-20 [facility] Work Phone: Laboratory - Coagulationon 0 02-26-2022 aPTT Coag (Bld) [Time] 26.0 s 24.1-36.2 [facility] Work Phone: PT Coag (PPP) [Time] 13.1 s 11.7-14.9 [facility] Work Phone: Laboratory - Hematology and Cell countson 02-26-2022 Erythrocyte distribution width (RBC) [Entitic vol] 42.9 fL 35.1-43.9 [facility] Work Phone: Erythrocyte distribution width (RBC) [Ratio] 13.6 % 11.6-14.6 [facility] Work Phone: Immature granulocytes/100 WBC (Bld) 0.500 % 0.0-0.9 [facility] Work Phone: Comment on above: IG% - Immature Granu locytes (promyelocytes, myelocytes and metamyelocytes) > 1% indicates that a LEFT SHIFT is Present. MCH (RBC) [Entitic mass] 29.2 pg 27.0-32.0 [facility] Work Phone: Nucleated RBC/100 WBC (Bld) [Ratio] 0 % 0-5 [facility] Work Phone: MCHC Auto (RBC) [Mass/Vol]on 02-26-2022 MCHC (RBC) [Mass/Vol] 33.5 g/dL 32-36 [facility] Work Phone: No Panel Informationon 02-26 Estimated GFR (MDRD) Amer 81 mL/min >60 [facility] Work Phone: Comment on above: GFR Calc Estimated GFR (MDRD) Non-Af Amer 67 mL/min >60 [facility] Work Phone: Comment on above: Non- GFR Calc Thyroid Stimulating Hormone (TSH) 3.77 uIU/mL 0.358-3.74 [facility] Work Phone: Platelets bldon 02-26-2022 Platelets (Bld) [#/Vol] 203 10*3/uL 150-450 [facility] Work Phone: Serum or plasma albumin andrés urement (mass/volume)on 02-26-2022 Albumin [Mass/Vol] 3.9 g/dL 3.2-5.0 [facility] Work Phone: Serum or plasma albumin/glob ulin mass ratioon 02-26-2022 Albumin/Globulin [Mass ratio] 1.1 {ratio} 0.9-2.4 [facility] Work Phone: Serum or plasma calcium andrés urement (mass/volume)on 02-26-2022 Calcium [Mass/Vol] 9.3 mg/dL 8.5-10.1 [facility] Work Phone: Serum or plasma cholesterol in HDL measurement (mass/volume)on 02-26-2022 Cholesterol in HDL [Mass/Vol] 39 mg/dL >40 [facility] Work Phone: Comment on above: The drugs N-Acetylcy steine and Metamizole may falsely depress this assay. Reference Range HDL <40 mg/dL Low HDL Cholesterol HDL >or= 60 mg/dL High HDL Cholesterol Serum or plasma cholesterol in VLDL measurement (mass/volume)on 02-26-2022 Cholesterol in VLDL [Mass/Vol] 58 mg/dL 5-40 [facility] Work Phone: Serum or plasma creatinine m easurement (mass/volume)on 02-26-2022 Creatinine [Mass/Vol] 1.20 mg/dL 0.70-1.30 [facility] Work Phone: Comment on above: The validity of the calculated GFR & GFRAA in patients over 70 years has not been determined. Clinical correlation is essential. Serum or plasma low density lipoprotein (LDL) cholesterol measurement (mass/volume)on 02-26-2022 Cholesterol in LDL [Mass/Vol] 98 mg/dL 0-130 [facility] Work Phone: Serum or plasma urea nitroge n measurement (mass/volume)on 02-26-2022 Urea nitrogen [Mass/Vol] 17 mg/dL 7-18 [facility] Work Phone: Thin prep Papanicolaou smear with manual screeningon 02-26-2022 Thin prep Papanicolaou smear with manual screening 38 U/L 15-37 [facility] Work Phone: Thin prep Papanicolaou smear with manual screening 7 5-15 [facility] Work Phone: ANCAOrdered By: System Manag er on 03-14-2018 Atypical pANCA <1:20 Normal [facility] Work Phone: Comment [...] up testing of positive sera with both CO-3 and MPO-ANCA enzyme immunoassays. As many as 5% serumsamples are positive only by EIA. Ref. AM J Clin [id number];111:507-513. ANCA <1:20 Normal [facility] Work [...] up testing of positive sera with both CO-3 and MPO-ANCA enzyme immunoassays. As many as 5% serumsamples are positive only by EIA. Ref. AM J Clin [id number];111:507-513. The atypical pANCA p attern has been observed in asignificant percentage of patients with ulcerative colitis,primary sclerosing cholangitis and autoimmune hepatitis. CBC W/Diff, AutomatedOrdered By: Bulk Driver on 03-14-2018 Absolute Lymph 1.20 {X10_3/ul} Normal 0.83-4.51 [facility]pr e[facility] Work Phone: Absolute Neut 5.7 {X10_3/uL} Normal 2.0-7.7 [facility] Work Phone: Comment on above: [facility] [address] [place], [address] Basophils/100 WBC (Bld) 0.3 % Normal 0-1 [facility] Work Phone: Comment on above: [facility] [address] [place], [address] Basophils/100 WBC Auto (Bld) 0.3 % Normal 0-1 [facility] Work Phone: Eosinophils/100 WBC (Bld) 1.5 % Normal 0-5 [facility] Work Phone: Comment on above: [facility] [address] [place], [address] Eosinophils/100 WBC Auto (Bld) 1.5 % Normal 0-5 [facility] Work Phone: Erythrocyte distribution width Auto Ratio (RBC) 14.0 % Normal 11.6-14.6 [facility] Work Phone: Erythrocyte distribution width Ratio (RBC) 14.0 % Normal 11.6-14.6 [facility] Work Phone: Comment on above: [place] [address] [place], [address] Hematocrit Auto Volume Fraction (Bld) 42.9 % Normal 40-54 [facility] Work Phone: Hematocrit Volume Fraction (Bld) 42.9 % Normal 40-54 [facility] Work Phone: Comment on above: [place] [id number] [place], [address] Hemoglobin mass conc (Bld) 14.6 g/dL Normal 13.0-16.5 [facility] Work Phone: Comment on above: [facility] [address] [place], [address] IM GRAN % 0.100 % Normal 0.0-0.9 [facility] Work Phone: Comment on above: IG% - Immature Granu locytes (promyelocytes, myelocytes andmetamyelocytes) > 1% indicates that a LEFT SHIFT is Present. [facility] [address] [place], [address] Lymphocytes #/vol (Bld) 1.20 {X10_3/ul} Normal 0.83-4.51 [facility] Work Phone: Comment on above: [facility] [address] [place], [address] Lymphocytes/100 WBC (Bld) 16.0 % Abnormal 19-41 [facility] Work Phone: Comment on above: [facility] [address] [place], [address] Lymphocytes/100 WBC Auto (Bld) 16.0 % Abnormal -41 [facility] Work Phone: MCH Auto Entitic mass (RBC) 28.6 pg Normal 27.0-32.0 [facility] Work Phone: MCH Entitic mass (RBC) 28.6 pg Normal 27.0-32.0 [facility] Work Phone: Comment on above: [facility] [address] [place], [address] MCHC Auto mass conc (RBC) 34.0 {g/gl} Normal 32-36 [facility] Work Phone: MCHC mass conc (RBC) 34.0 {g/gl} Normal 32-36 [facility] prehensive Internal Medicine Work Phone: Comment on above: [facility] [address] [place], [address] MCV Auto Entitic volume (RBC) 84.0 fL Normal 80-94 [facility] Work Phone: MCV Entitic volume (RBC) 84.0 fL Normal 80-94 [facility] Work Phone: Comment on above: [facility] [address] [place], [address] Monocytes/100 WBC Auto (Bld) 6.3 % Normal 0-10 [facility] Work Phone: Comment on above: [facility] [address] [place], [address] Neutrophils/100 WBC (Bld) 75.8 % Abnormal 47-70 [facility] Work Phone: Comment on above: [facility] [address] [place], [address] Neutrophils/100 WBC Auto (Bld) 75.8 % Abnormal 47-70 [facility] Work Phone: Platelet mean volume Auto Entitic volume (Bld) 9.8 fL Normal 6.2-12.0 [facility] Work Phone: Platelet mean volume Entitic volume (Bld) 9.8 fL Normal 6.2-12.0 [facility]pre[facility] Work Phone: Comment on above: [facility] [address] [place], [address] Platelets #/vol (Bld) 232 10*3/uL Normal 150-450 [facility] monettehensive [facility] Work Phone: Comment on above: [facility] [address] [place], [address] Platelets Auto #/vol (Bld) 232 10*3/uL Normal 150-450 [facility] Work Phone: RBC #/vol (Bld) 5.11 {M/mm3} Normal 4.6-6.2 Compreh ensive [facility] Work Phone: Comment on above: [facility] [address] [place], [address] RBC Auto #/vol (Bld) 5.11 {M/mm3} Normal 4.6-6.2 Co m[facility] Work Phone: RDW SD 42.5 fL Normal 35.1-43.9 [facility] Work Phone: Comment on above: [facility] [address] [place], [address] WBC #/vol (Bld) 7.5 10*3/uL Normal 4.4-11.0 Comprehe nsive [facility] Medicine Work Phone: Comment on above: [facility] [address] [place], [address] WBC Auto #/vol (Bld) 7.5 10*3/uL Normal 4.4-11.0 Com prehensive [facility] Work Phone: CCP IgG AntibodiesOrdered By : Bulk Driver on 03-14-2018 Cyclic citrullinated peptide IgG Qn 7 {units} Normal 0-19 [facility] Work Phone: Comment on above: Negative <20 Weak po sitive 20 - 39 Moderate positive 40 - 59 Strong positive >59Performed at: [facility] [address] [id number] Director: Umang North MD, Phone: [phone] at: [facility] [employer] [address] [id number] Director: Rodrigo Paiz PhD, Phone: [phone] [facility] (refer to re port for specific [...] a High Sensitivity CRP (HSCRP)should be ordered. [facility] [address] [place], [place], [id number] [facility] Metabolic Prof ilOrdered By: Bulk Driver on 03-14-2018 Comprehensive metabolic 2000 panel 19 U/L Normal 15-37 Comprehensi ve Internal Medicine Work Phone: Comment on above: [facility] spital [address] [place], [place], [address] Comprehensive metabolic 2000 panel 9.2 mg/dL Normal 8.5-10.1 Comprehensi ve [facility] Medicine Work Phone: Comment on above: [facility] spital [address] [place], [place], [id number] Comprehensive metabolic 2000 panel 8.2 {RATIO} Abnormal 10-20 Comprehensi ve [facility] Work Phone: Comment on above: [facility] sp[facility] [address] [place], [place], [id number] Comprehensive metabolic 2000 panel 66 U/L Normal 45-117 Comprehensi ve [facility] Work Phone: Comment on above: [facility] sp[facility] [address] [place], [place], [id number] Comprehensive metabolic 2000 panel 23 U/L Normal 16-61 Comprehensi ve [facility] Work Phone: Comment on above: [facility] [address] [place], [place], [id number] Comprehensive metabolic 2000 panel 7.4 g/dL Normal 6.4-8.2 [facility]pre[facility]si [facility] Work Phone: Comment on above: [facility] [address] [place], [place], [id number] Comprehensive metabolic 2000 panel 90 mL/min Normal Comprehensi ve [facility] Work Phone: Comment on above: GFR Calc [facility] sp[facility] [address] [place], [place], [id number] Comprehensive metabolic 2000 panel 3.5 g/dL Normal 3.2-5.0 Compre[facility]si [facility] Work Phone: Comment on above: [facility] sp[facility] [address] [place], [place], [id number] Comprehensive metabolic 2000 panel 0.50 mg/dL Normal 0.20-1.00 Comprehensi ve [facility] Medicine Work Phone: Comment on above: [facility] [address] [place], [place], [address] Comprehensive metabolic 2000 panel 140 mmol/L Normal 136-145 Comprehensi ve Internal Medicine Work Phone: Comment on above: [facility] [address] [place], [place], [id number] Comprehensive metabolic 2000 panel 3.5 mmol/L Normal 3.5-5.1 Comprehensi ve Internal Medicine Work Phone: Comment on above: [facility] [address] [place], [place], [id number] Comprehensive metabolic 2000 panel 105 mmol/L Normal 98-107 Comprehensi ve Internal Medicine Work Phone: Comment on above: [facility] [address] [place], [place], [address] Comprehensive metabolic 2000 panel 3.9 g/dL Normal 2.2-4.2 Comprehensi ve Internal Medicine Work Phone: Comment on above: [facility] [address] [place], [place], [address] Comprehensive metabolic 2000 panel 28.0 mmol/L Normal 21.0-32.0 Comprehensi ve Internal Medicine Work Phone: Comment on above: [facility] [address] [place], [place], [address] Comprehensive metabolic 2000 panel 7 1 Normal 5-15 Comprehensi ve Internal Medicine Work Phone: Comment on above: [facility] [address] [place], [place], [address] Comprehensive metabolic 2000 panel 0.9 {RATIO} Normal 0.9-2.4 Comprehensi ve Internal Medicine Work Phone: Comment on above: [facility] [address] [place], [place], [address] Comprehensive metabolic 2000 panel 1.10 mg/dL Normal 0.70-1.30 Comprehensi ve Internal Medicine Work Phone: Comment on above: The validity of the calculated GFR AND GFRAA in patients over70 years has not been determined. Clinical correlation isessential. [facility] [address] [place], [place], [address] Comprehensive metabolic 2000 panel 75 mL/min Normal Comprehensi ve Internal Medicine Work Phone: Comment on above: Non- GFR Calc [place] [address] [place], [place], [address] Comprehensive metabolic 2000 panel 83.67 ml/min Normal Comprehensi ve Internal Medicine Work Phone: Comment on above: [place] [address] [place], [place], [address] Comprehensive metabolic 2000 panel 9 mg/dL Normal 7-18 Comprehensi ve Internal Medicine Work Phone: Comment on above: [place] [address] [place], [place], [address] Comprehensive metabolic 2000 panel 107 mg/dL Abnormal 74-106 Comprehensi ve Internal Medicine Work Phone: Comment on above: Fasting Glucose resu lt from 100 to 125 mg/dLsuggests IMPAIRED HOMEOSTASIS per A.D.A. criteria.Please note revised GLUCOSE reference range ofunotbav25/02/2018. [facility] [address] [place], [place], [address] Culture, Blood (WB)Ordered B y: Bulk Driver on 03-14-2018 Bacteria identified Cx Nom (Bld) See Note Normal Comprehensive [facility] Medicine Work Phone: Comment on above: BCNO FUNGUS ISOLATED AT 30 DAYS [place] [address] [place], [place], [address] Erythrocyte Sed RateOrdered By: Bulk Driver on 03-14-2018 SED RATE 29 mm/h Abnormal 0-20 Comprehensive [facility] Medicine Work Phone: Erythrocyte Sed Rate 29 mm/h Abnormal 0-20 Comp rehensive Internal Medicine Work Phone: Comment on above: [facility] [address] [place], [place], [address] HIV - WCHOrdered By: Bulk Driver on 03-14-2018 HIV - WCH Non-Reactive Normal Comprehensiv e Internal Medicine Work Phone: HIV - WCH Non-Reactive Normal Comprehensiv e Internal Medicine Work Phone: Comment on above: [facility] [address] [place], [place], [address] Hepatitis ABC ProfileOrdered By: Bulk Driver on 03-14-2018 COMMENT Comment Normal Comprehensive Internal [...] phone number Lactic AcidOrdered By: Syste m Biomedical Scientist on 03-14-2018 Lactate molar conc 1.5 mmol/L Normal 0.4-2.0 [facility] Internal Medicine Work Phone: Comment on above: Yes/No query for Sep sis Lactate Rule [facility] [address] [facility] [address] [place], [place], [address] Lyme Antibodies,W BlotOrdere d By: Bulk Driver on 03-14-2018 LYME IgG INTERP Negative Normal [facility] Internal Medicine Work Phone: Comment on above: Positive: 5 of the f ollowing Borrelia-specific bands: 18,23,28,30,39,41,45,58, 66, and 93. Negative: No bands or banding patterns which do not meet positive criteria. LYME IgM INTERP Positive Abnormal [facility] Internal Medicine Work Phone: Comment on above: [...] positivity are those recommended byCDC/ASTPHLD. p23=Osp C, a42=yzjvmkredUahz:Sera from individuals with the following may cross [...] Phone: Lyme Antibodies,W Blot Absent Normal [facility] Internal Medicine Work Phone: Comment on above: [facility] (refer to re port for specific site)refer to report for address and phone number Lyme Antibodies,W Blot Present Abnormal [facility] Internal Medicine Work Phone: Comment on above: [facility] (refer to re port for specific site)refer to report for address and phone number Lyme Antibodies,W Blot Negative Normal [facility] Internal Medicine Work Phone: Comment on above: Positive: 5 of the f ollowing Borrelia-specific bands: 18,23,28,30,39,41,45,58, 66, and 93. Negative: No bands or banding patterns which do not meet positive criteria. [facility] (refer to re port for specific site)refer to report for address and phone number Lyme Antibodies,W Blot Positive Abnormal [facility] Internal Medicine [...] positivity are those recommended byCDC/ASTPHLD. p23=Osp C, h49=tgpmhiwwmUvoe:Sera from individuals with the following may cross reactin the Lyme Western Blot assays: other spirochetal diseases(periodontal disease, leptospirosis, relapsing fever, yaws,and pinta); connective autoimmune (Rheumatoid Arthritis andSystemic Lupus Erythematosus and also individuals withAntinuclear Antibody); other infections (Helio MountainSpotted Fever; Patti-Hay Virus, and Cytomegalovirus). [facility] (refer to re port for specific site)refer to report for address and phone number Partial Thromboplast TimeOrd ered By: Bulk Driver on 03-14-2018 aPTT Coag time (Bld) 33.2 s Normal 24.1-36.2 [facility] Internal Medicine Work Phone: aPTT Coag time (PPP) 33.2 s Normal 24.1-36.2 [facility] Internal Medicine Work Phone: Comment on above: [facility] [address] [place], [address] Prothrombin Time w/INROrdere d By: Bulk Driver on 03-14-2018 INR Coag RelTime (PPP) 1.0 {INR} Normal [facility] Internal Medicine Work Phone: Comment on above: [facility] [address] [place], [place], [id number] Prothrombin time (PT) Coag time (PPP) 13.5 s Normal 11.7-14.9 [facility] Internal [facility] Work Phone: Comment on above: [facility] [address] [place], [place], [address] Troponin-IOrdered By: Bulk Driver on 03-14-2018 Troponin I.cardiac mass conc ng/mL Normal [facility] Internal [facility] Work Phone: Comment on above: TROPONIN-I EXPECTED VALUES <0.045 Negative 0.045 - 0.590 Consistent with Cardiac Damage > OR = 0.600 Critical Value Not every elevated troponin is indicative of RI. Thesevalues should be used with clinical judgement in examiningthe patient's clinical picture for diagnosis. To establisha diagnosis of RI versus myocardial injury, there must be ademonstrated rise and/or fall in the troponin values, inaddition to ischemic symptoms, EKG changes, new regionalwall motion abnormality, and/or angiographical evidence. PLEASE NOTE: REFERENCE RANGES EDITED 17 [facility] [address] [place], [place], [id number] ASO TiterOrdered By: Bulk Driver on 02-28-2018 Streptolysin O Ab Qn 34.6 {IU/mL} Normal 0.0-200.0 [facility] Internal Medicine Work Phone: Comment on above: Performed at: [address] [id number] Director: Rodrigo Paiz PhD, Phone: [phone] FAX RESULTS TO HERIBERTO LOWE @[id number] (refer to report for specific site)refer to report for address and phone number Anti-dsDNA AbOrdered By: Cuate tem Biomedical Scientist on 02-28-2018 DNA double strand Ab Qn (S) [IU]/mL Normal 0-9 [facility] Medicine Work Phone: Comment on above: Negative <5 Equivoca l 5 - 9 Positive >9Performed at: - [facility] [id number] Director: Rodrigo Paiz PhD, Phone: [phone] FAX RESULTS TO HERIBERTO LOWE @[id number] (refer to report for specific site)refer to report for address and phone number CBC W/Diff, AutomatedOrdered By: Bulk Driver on 02-28-2018 Absolute Lymph 1.16 {X10_3/ul} Normal 0.83-4.51 Compr ehensive Internal Medicine Work Phone: Absolute Neut 5.2 {X10_3/uL} Normal 2.0-7.7 Compreh ensive Internal Medicine Work Phone: Comment on above: FAX RESULTS TO HERIBERTO LOWE @[id number] [place] [address] [address] [place], [address](350) Basophils/100 WBC (Bld) 0.3 % Normal 0-1 [facility] Medicine Work Phone: Comment on above: FAX RESULTS TO HERIBERTO LOWE @[id number] [place] [address] [address] [place], [address](469) Basophils/100 WBC Auto (Bld) 0.3 % Normal 0-1 [facility] Medicine Work Phone: Eosinophils/100 WBC (Bld) 1.9 % Normal 0-5 [facility] Internal Medicine Work Phone: Comment on above: FAX RESULTS TO HERIBERTO LOWE @[id number] Tripoint Medical Center [address] [place], [address](598) Eosinophils/100 WBC Auto (Bld) 1.9 % Normal 0-5 [facility] Medicine Work Phone: Erythrocyte distribution width Auto Ratio (RBC) 13.7 % Normal 11.6-14.6 [facility] Medicine Work Phone: Erythrocyte distribution width Ratio (RBC) 13.7 % Normal 11.6-14.6 [facility] Medicine Work Phone: Comment on above: FAX RESULTS TO HERIBERTO LOWE @[id number] [place] [address] [address] [place], [place], [address] Hematocrit Auto Volume Fraction (Bld) 40.5 % Normal 40-54 [facility] Internal Medicine Work Phone: Hematocrit Volume Fraction (Bld) 40.5 % Normal 40-54 [facility] Internal Medicine Work Phone: Comment on above: FAX RESULTS TO HERIBERTO LOWE @[id number] [place] [address] [address] [place], [address] Hemoglobin mass conc (Bld) 14.1 g/dL Normal 13.0-16.5 [facility] Medicine Work Phone: Comment on above: FAX RESULTS TO HERIBERTO LOWE @[id number] [place] [address] [address] [place], [address] IM GRAN % 0.300 % Normal 0.0-0.9 [facility] Internal Medicine Work Phone: Comment on above: IG% - Immature Granu locytes (promyelocytes, myelocytes andmetamyelocytes) > 1% indicates that a LEFT SHIFT is Present. FAX RESULTS TO HERIBERTO LOWE @[id number] [place] [address] [address] [place] [place], [address] Lymphocytes #/vol (Bld) 1.16 {X10_3/ul} Normal 0.83-4.51 [facility] Internal Medicine Work Phone: Comment on above: FAX RESULTS TO HERIBERTO LOWE @[id number] [place] [address] [address] [place], [address] Lymphocytes/100 WBC (Bld) 16.9 % Abnormal 19-41 [facility] Internal Medicine Work Phone: Comment on above: FAX RESULTS TO HERIBERTO LOWE @[id number] [place] [address] [address] [place], [address] Lymphocytes/100 WBC Auto (Bld) 16.9 % Abnormal 19-41 [facility] Medicine Work Phone: MCH Auto Entitic mass (RBC) 29.5 pg Normal 27.0-32.0 [facility] Internal Medicine Work Phone: MCH Entitic mass (RBC) 29.5 pg Normal 27.0-32.0 [facility] Internal Medicine Work Phone: Comment on above: FAX RESULTS TO HERIBERTO LOWE @[id number] [place] [address] [address] [place], [address] MCHC Auto mass conc (RBC) 34.8 {g/gl} Normal 32-36 [facility] Internal Medicine Work Phone: MCHC mass conc (RBC) 34.8 {g/gl} Normal 32-36 [facility] prehensive Internal Medicine Work Phone: Comment on above: FAX RESULTS TO HERIBERTO LOWE @[id number] [place] [address] [address] [place], [address](502) MCV Auto Entitic volume (RBC) 84.7 fL Normal 80-94 [facility] Internal Medicine Work Phone: MCV Entitic volume (RBC) 84.7 fL Normal 80-94 [facility] Internal Medicine Work Phone: Comment on above: FAX RESULTS TO HERIBERTO OJEDA LOWE @[id number] [place] [address] [address], [address] Monocytes/100 WBC Auto (Bld) 5.5 % Normal 0-10 Comprehensive Internal Medicine Work Phone: Comment on above: FAX RESULTS TO HERIBERTO LOWE @[id number] Tripoint Medical Center [address] [place], [address] Neutrophils/100 WBC (Bld) 75.1 % Abnormal 47-70 [facility] Internal Medicine Work Phone: Comment on above: FAX RESULTS TO HERIBERTO LOWE @[id number] [place] [address] [place], [address] Neutrophils/100 WBC Auto (Bld) 75.1 % Abnormal 47-70 [facility] Internal Medicine Work Phone: Platelet mean volume Auto Entitic volume (Bld) 9.9 fL Normal 6.2-12.0 [facility] Internal Medicine Work Phone: Platelet mean volume Entitic volume (Bld) 9.9 fL Normal 6.2-12.0 Comprehensi ve Internal Medicine Work Phone: Comment on above: FAX RESULTS TO HERIBERTO LOWE @[id number] [place] [address] [place], [address] Platelets #/vol (Bld) 203 10*3/uL Normal 150-450 Co [facility] monettehensive Internal Medicine Work Phone: Comment on above: FAX RESULTS TO HERIBERTO LOWE @[id number] [place] [address] [place], [address] Platelets Auto #/vol (Bld) 203 10*3/uL Normal 150-450 Comprehensive Internal Medicine Work Phone: RBC #/vol (Bld) 4.78 {M/mm3} Normal 4.6-6.2 Compreh ensive Internal Medicine Work Phone: Comment on above: FAX RESULTS TO HERIBERTO LOWE @[id number] [place] [address] [place], [address] RBC Auto #/vol (Bld) 4.78 {M/mm3} Normal 4.6-6.2 Co mprehensive Internal Medicine Work Phone: RDW SD 42.2 fL Normal 35.1-43.9 Comprehensive Internal Medicine Work Phone: Comment on above: FAX RESULTS TO HERIBERTO LOWE @[id number] Tripoint Medical Center [address] [place], [address] WBC #/vol (Bld) 6.9 10*3/uL Normal 4.4-11.0 Comprehe nsive Internal Medicine Work Phone: Comment on above: FAX RESULTS TO HERIBERTO LOWE @[id number] Tripoint Medical Center [address] [place], [address] WBC Auto #/vol (Bld) 6.9 10*3/uL Normal 4.4-11.0 Com prehensive Internal Medicine Work Phone: Comprehensive Metabolic Prof ilOrdered By: Bulk Driver on 02-28-2018 Comprehensive metabolic 2000 panel 25.0 mmol/L Normal 21.0-32.0 Comprehensi ve Internal Medicine Work Phone: Comment on above: FAX RESULTS TO HERIBERTO LOWE @[id number] Tripoint Medical Center [address] [place], [address] Comprehensive metabolic 2000 panel 105 mg/dL Normal 74-106 Comprehensi ve Internal Medicine Work Phone: Comment on above: Fasting Glucose resu lt from 100 to 125 mg/dLsuggests IMPAIRED HOMEOSTASIS per A.D.A. criteria.Please note revised GLUCOSE reference range bxobzfskf43/02/2018. FAX RESULTS TO HERIBERTO LOWE @[id number] Tripoint Medical Center [address]qv[address] [place], [address] Comprehensive metabolic 2000 panel 0.9 {RATIO} Normal 0.9-2.4 Comprehensi ve Internal Medicine Work Phone: Comment on above: FAX RESULTS TO HERIBERTO LWOE @[id number] [place] [address] [address] [place], [address] Comprehensive metabolic 2000 panel 7 1 Normal 5-15 Comprehensi ve Internal Medicine Work Phone: Comment on above: FAX RESULTS TO HERIBERTO LOWE @[id number] [place] [address] [place], [address] Comprehensive metabolic 2000 panel 11 mg/dL Normal 7-18 Comprehensi ve Internal Medicine Work Phone: Comment on above: FAX RESULTS TO HERIBERTO LOWE @[id number] [place] [address] [place], [address] Comprehensive metabolic 2000 panel 1.18 mg/dL Normal 0.70-1.30 Comprehensi ve Internal Medicine Work Phone: Comment on above: The validity of the calculated GFR AND GFRAA in patients over70 years has not been determined. Clinical correlation isessential. FAX RESULTS TO HERIBERTO LOWE @[id number] [place] [address] [place], [address] Comprehensive metabolic 2000 panel 3.7 g/dL Normal 3.2-5.0 Comprehensi ve Internal Medicine Work Phone: Comment on above: FAX RESULTS TO HERIBERTO LOWE @[id number] [place] [address] [place], [address] Comprehensive metabolic 2000 panel 69 mL/min Normal Comprehensi ve Internal Medicine Work Phone: Comment on above: Non- GFR Calc FAX RESULTS TO HERIBERTO LOWE @[id number] [place] [address] [place], [address] Comprehensive metabolic 2000 panel 20 U/L Normal 15-37 Comprehensi ve Internal Medicine Work Phone: Comment on above: FAX RESULTS TO HERIBERTO LOWE @[id number] [place] [address] [place], [address] Comprehensive metabolic 2000 panel 70 U/L Normal 45-117 Comprehensi ve Internal Medicine Work Phone: Comment on above: FAX RESULTS TO HERIBERTO LOWE @[id number] [place] [address] [address] [place], [address] Comprehensive metabolic 2000 panel 25 U/L Normal 16-61 Comprehensi ve Internal Medicine Work Phone: Comment on above: FAX RESULTS TO HERIBERTO LOWE @[id number] [place] [address] [address] [place], [address] Comprehensive metabolic 2000 panel 0.50 mg/dL Normal 0.20-1.00 Comprehensi ve Internal Medicine Work Phone: Comment on above: FAX RESULTS TO HERIBERTO LOWE @[id number] [place] [address] [address] [place], [address] Comprehensive metabolic 2000 panel 83 mL/min Normal Comprehensi ve Internal Medicine Work Phone: Comment on above: GFR Calc FAX RESULTS TO HERIBERTO LOWE @[id number] [place] [address] [address] [place], [address] Comprehensive metabolic 2000 panel 107 mmol/L Normal 98-107 Comprehensi ve Internal Medicine Work Phone: Comment on above: FAX RESULTS TO HERIBERTO LOWE @[id number] [place] [address] [address] [place], [place], [address] Comprehensive metabolic 2000 panel 3.7 mmol/L Normal 3.5-5.1 Comprehensi ve Internal Medicine Work Phone: Comment on above: FAX RESULTS TO HERIBERTO LOWE @[id number] [place] [address] [address] [place], [address] Comprehensive metabolic 2000 panel 139 mmol/L Normal 136-145 Comprehensi ve Internal Medicine Work Phone: Comment on above: FAX RESULTS TO HERIBERTO LOWE @[id number] [place] [address] [place], [place], [address] Comprehensive metabolic 2000 panel 9.3 {RATIO} Abnormal 10-20 Comprehensi ve Internal Medicine Work Phone: Comment on above: FAX RESULTS TO HERIBERTO LOWE @[id number] [place] [address] [place], [address] Comprehensive metabolic 2000 panel 4.1 g/dL Normal 2.2-4.2 Comprehensi ve Internal Medicine Work Phone: Comment on above: FAX RESULTS TO HERIBERTO LOWE @[id number] [place] [address] [address] [place], [address] Comprehensive metabolic 2000 panel 8.8 mg/dL Normal 8.5-10.1 Comprehensi ve Internal Medicine Work Phone: Comment on above: FAX RESULTS TO HERIBERTO LOWE @[id number] [place] [address] [place], [address] Comprehensive metabolic 2000 panel 7.8 g/dL Normal 6.4-8.2 Comprehensi ve Internal Medicine Work Phone: Comment on above: FAX RESULTS TO HERIBERTO LOWE @[id number] [place] [address] [address] [place], [address] Erythrocyte Sed RateOrdered By: Bulk Driver on 02-28-2018 SED RATE 29 mm/h Abnormal 0-20 Comprehensive [facility] Medicine Work Phone: Erythrocyte Sed Rate 29 mm/h Abnormal 0-20 Comp rehensive Internal Medicine Work Phone: Comment on above: FAX RESULTS TO HERIBERTO LOWE @[id number] [place] [address] [place], [address] Surgical Pathologyon 018 Surgical Pathology [id number] [facility] PATHOLOGY AND LABORATORY MEDICINE [address] [place] [address] FINAL SURGICAL PATHOLOGY REPORT NAME: SHERMAN CORONEL .O.B.: 1965 52 [facility] NO[facility] [id number]: [id number] PROCEDURE 02/28/2018 DATE:SURGEON: MARISSA CANALES RECEIVED [...] set aside forfurther processing. (1 ns, 1) SHI/Dajuan: The following statement applies to allimmunohistochemistry , in situ hybridization, molecular studies, andimmunofluorescence testing.The use of one or more reagents in the above tests is regulated as ananalyte specific reagent (ASR). These tests were developed and theirperformance characteristics determined by the clinical laboratories [facility]. They have not been cleared by [...] false negativity on decalcified specimens.Professional Performing Location: [place] [address]. DEPARTMENT OF PATHOLOGY AND LABORATORY MEDICINE [place], [place] [address] Normal [facility] ANTINUCLEAR ANTIBODIES DIREC TOrdered By: Bulk Driver on 02-26-2018 Nuclear Ab Ql (S) Negative Normal Compreh ensive Internal Medicine Work Phone: Comment on above: Performed at: [address] [id number] Director: Rodrigo Paiz PhD, Phone: [phone] SEND RESULT OF CRISELDA LOWE @[id number] (refer to report for specific site)refer to report for address and phone number CBC W/Diff, AutomatedOrdered By: Bulk Driver on 02-26-2018 Absolute Lymph 0.97 {X10_3/ul} Normal 0.83-4.51 Compr ehensive Internal Medicine Work Phone: Absolute Neut 4.3 {X10_3/uL} Normal 2.0-7.7 Compreh ensive Internal Medicine Work Phone: Comment on above: [facility] [address] [place], [address] Basophils/100 WBC (Bld) 0.2 % Normal 0-1 [facility] Work Phone: Comment on above: [facility] [address] [place], [address] Basophils/100 WBC Auto (Bld) 0.2 % Normal 0-1 [facility] Work Phone: Eosinophils/100 WBC (Bld) 1.8 % Normal 0-5 [facility] Work Phone: Comment on above: [facility] [address] [place], [address] Eosinophils/100 WBC Auto (Bld) 1.8 % Normal 0-5 [facility] Work Phone: Erythrocyte distribution width Auto Ratio (RBC) 13.9 % Normal 11.6-14.6 [facility] Work Phone: Erythrocyte distribution width Ratio (RBC) 13.9 % Normal 11.6-14.6 [facility] Work Phone: Comment on above: [place] [address] [place], [address] Hematocrit Auto Volume Fraction (Bld) 41.6 % Normal 40-54 [facility] Work Phone: Hematocrit Volume Fraction (Bld) 41.6 % Normal 40-54 [facility] Medicine Work Phone: Comment on above: [facility] Ohxwzdagfw6810 [place], [address] Hemoglobin mass conc (Bld) 14.2 g/dL Normal 13.0-16.5 [facility] Work Phone: Comment on above: [facility] [address] [place], [address] IM GRAN % 0.200 % Normal 0.0-0.9 [facility] Work Phone: Comment on above: IG% - Immature Granu locytes (promyelocytes, myelocytes andmetamyelocytes) > 1% indicates that a LEFT SHIFT is Present. [facility] [address] [place], [place], [phone] Lymphocytes #/vol (Bld) 0.97 {X10_3/ul} Normal 0.83-4.51 [facility] Work Phone: Comment on above: [place] [address] [place], [address] Lymphocytes/100 WBC (Bld) 17.0 % Abnormal 19-41 [facility] Work Phone: Comment on above: [place] [address] [place], [address] Lymphocytes/100 WBC Auto (Bld) 17.0 % Abnormal 19-41 [facility] Work Phone: MCH Auto Entitic mass (RBC) 29.1 pg Normal 27.0-32.0 [facility] Work Phone: MCH Entitic mass (RBC) 29.1 pg Normal 27.0-32.0 [facility] Internal Medicine Work Phone: Comment on above: [place] [address] [place], [address] MCHC Auto mass conc (RBC) 34.1 {g/gl} Normal 32-36 [facility] Work Phone: MCHC mass conc (RBC) 34.1 {g/gl} Normal 32-36 [facility] Work Phone: Comment on above: [facility] [address] [place], [place], [phone] MCV Auto Entitic volume (RBC) 85.2 fL Normal 80-94 [facility] Work Phone: MCV Entitic volume (RBC) 85.2 fL Normal 80-94 [facility] Work Phone: Comment on above: [facility] [address] [place], [address] Monocytes/100 WBC Auto (Bld) 5.4 % Normal 0-10 [facility] Work Phone: Comment on above: [facility] [address] [place], [address] Neutrophils/100 WBC (Bld) 75.4 % Abnormal 47-70 [facility] Work Phone: Comment on above: [facility] [address] [place], [address] Neutrophils/100 WBC Auto (Bld) 75.4 % Abnormal 47-70 [facility] Work Phone: Platelet mean volume Auto Entitic volume (Bld) 9.4 fL Normal 6.2-12.0 [facility] Work Phone: Platelet mean volume Entitic volume (Bld) 9.4 fL Normal 6.2-12.0 Comprehensi Internal Medicine Work Phone: Comment on above: [facility] [address] [place], [address] Platelets #/vol (Bld) 194 10*3/uL Normal 150-450 Co cox monettehensive Internal Medicine Work Phone: Comment on above: [facility] [address] [place], [address] Platelets Auto #/vol (Bld) 194 10*3/uL Normal 150-450 [facility] Work Phone: RBC #/vol (Bld) 4.88 {M/mm3} Normal 4.6-6.2 Compreh ensive Internal Medicine Work Phone: Comment on above: [facility] [address] [place], [address] RBC Auto #/vol (Bld) 4.88 {M/mm3} Normal 4.6-6.2 Co mprehensive Internal Medicine Work Phone: RDW SD 42.8 fL Normal 35.1-43.9 [facility] Work Phone: Comment on above: [facility] [address] [place], [address] WBC #/vol (Bld) 5.7 10*3/uL Normal 4.4-11.0 Comprehe nsive Internal Medicine Work Phone: Comment on above: [facility] [address] [place], [address] WBC Auto #/vol (Bld) 5.7 10*3/uL Normal 4.4-11.0 Com [facility] Internal [facility] Work Phone: CRPOrdered By: System Manage r on 02-10-2018 CRP High sensitivity method mass conc 10.70 mg/L Abnormal 0.0-3.0 [facility] Work Phone: Comment on above: C-Reactive Protein ( CRP) provides useful information for thediagnosis, therapy and monitoring of inflammatory processesand associated diseases. For the evaluation of Relative Riskfor Cardiovascular Disease, a High Sensitivity CRP (HSCRP)should be ordered. [facility] [address] [place], [address] Culture, UrineOrdered By: GRID stem Biomedical Scientist on 02-10-2018 Bacteria identified Cx Nom (U) See Note Normal [facility] Work Phone: Comment on above: Urine CultureCulture exhibits no growth. [facility] [address] [place], [place], [phone] Erythrocyte Sed RateOrdered By: Bulk Driver on 02-10-2018 SED RATE 9 mm/h Normal 0-20 [facility] Work Phone: Erythrocyte Sed Rate 9 mm/h Normal 0-20 [facility] Work Phone: Comment on above: [facility] [address] [place], [address] Urinalysis, Routine (Dipstic k)Ordered By: Bulk Driver on 02-10-2018 BILIRUBIN URINE Negative Normal Com[facility]hen [facility] Internal [facility] Work Phone: CLARITY Clear Normal [facility] Work Phone: Clarity Nom (U) Clear Normal Comprehen sive Internal Medicine Work Phone: Comment on above: How was Urine Obtain ed? [facility] [address] [place], [phone] COLOR Yellow Normal [facility] Work Phone: Color Nom (U) Yellow Normal Comprehensi Internal Medicine Work Phone: Comment on above: How was Urine Obtain ed? [facility] [address] [place], [id number] GLUCOSE, UR Normal Normal [facility] Work Phone: pH UR 5.0 1 Normal 5.0 - 8.0 [facility] Work Phone: SP.GR. DIPSTX 1.015 1 Normal 1.002-1.03 0 [facility] Work Phone: Urinalysis, Routine (Dipstick) Negative Normal [facility] Work Phone: Comment on above: How was Urine Obtain ed? [facility] [address] [place], [phone] Urinalysis, Routine (Dipstick) Normal Normal [facility] Work Phone: Comment on above: How was Urine Obtain ed? [facility] [address] [place] [place], [phone] Urinalysis, Routine (Dipstick) 5.0 1 Normal 5.0 - 8.0 [facility] Work Phone: Comment on above: How was Urine Obtain ed? [facility] [address] [place], [address] Urinalysis, Routine (Dipstick) 1.015 1 Normal 1.002-1.03 0 [facility] Work Phone: Comment on above: How was Urine Obtain ed? [facility] [address] [place], [place], [address] Basic Metabolic Profile (BMP )Ordered By: Bulk Driver on 02-04-2018 Basic metabolic 2000 panel 81 mL/min Normal [facility] Work Phone: Comment on above: GFR Calc [facility] [address] [place], [place], [phone] Basic metabolic 2000 panel 135 mmol/L Abnormal 136-145 [facility] Work Phone: Comment on above: [facility] [address] [place], [place], [phone] Basic metabolic 2000 panel 1.21 mg/dL Normal 0.70-1.30 [facility] Work Phone: Comment on above: The validity of the calculated GFR AND GFRAA in patients over70 years has not been determined. Clinical correlation isessential. [facility] [address] [place], [place], [phone] Basic metabolic 2000 panel 8 mg/dL Normal 7-18 [facility] Work Phone: Comment on above: [facility] [address] [place], [address] Basic metabolic 2000 panel 67 mL/min Normal [facility] Work Phone: Comment on above: Non- GFR Calc [facility] [address] [place], [place], [phone] Basic metabolic 2000 panel 76.06 ml/min Normal [facility] Work Phone: Comment on above: [facility] [address] [place], [place], [address] Basic metabolic 2000 panel 6.6 {RATIO} Abnormal 10-20 [facility] Work Phone: Comment on above: [facility] [address] [place], [place], [phone] Basic metabolic 2000 panel 117 mg/dL Abnormal 74-106 [facility] Work Phone: Comment on above: Fasting Glucose resu lt from 100 to 125 mg/dLsuggests IMPAIRED HOMEOSTASIS per A.D.A. criteria.Please note revised GLUCOSE reference range [id number]/02/2018. [facility] [address] [place], [place], [address] Basic metabolic 2000 panel 7 1 Normal 5-15 [facility] Work Phone: Comment on above: [facility] [address] [place], [place], [address] Basic metabolic 2000 panel 25.0 mmol/L Normal 21.0-32.0 [facility] Work Phone: Comment on above: [facility] [address] [place], [place], [address] Basic metabolic 2000 panel 103 mmol/L Normal 98-107 [facility] Work Phone: Comment on above: [facility] [address] [place], [place], [address] Basic metabolic 2000 panel 3.6 mmol/L Normal 3.5-5.1 [facility] Work Phone: Comment on above: [facility] [address] [place], [place], [id number] Basic metabolic 2000 panel 9.0 mg/dL Normal 8.5-10.1 [facility] Work Phone: Comment on above: [facility] [address] [place], [place], [phone] CBC W/Diff, AutomatedOrdered By: Bulk Driver on 02-04-2018 Absolute Lymph 0.79 {X10_3/ul} Abnormal 0.83-4.51 Compr ehensive Internal Medicine Work Phone: Absolute Neut 3.6 {X10_3/uL} Normal 2.0-7.7 Compreh ensive Internal Medicine Work Phone: Comment on above: [facility] [address] [place], [address] Basophils/100 WBC (Bld) 0.2 % Normal 0-1 [facility] Work Phone: Comment on above: [facility] [address] [place], [address] Basophils/100 WBC Auto (Bld) 0.2 % Normal 0-1 [facility] Work Phone: Eosinophils/100 WBC (Bld) 0.0 % Normal 0-5 [facility] Work Phone: Comment on above: [facility] [address] [place], [address] Eosinophils/100 WBC Auto (Bld) 0.0 % Normal 0-5 [facility] Work Phone: Erythrocyte distribution width Auto Ratio (RBC) 13.6 % Normal 11.6-14.6 [facility] Work Phone: Erythrocyte distribution width Ratio (RBC) 13.6 % Normal 11.6-14.6 [facility] Work Phone: Comment on above: [facility] [address] [place], [address] Hematocrit Auto Volume Fraction (Bld) 37.8 % Abnormal 40-54 [facility] Work Phone: Hematocrit Volume Fraction (Bld) 37.8 % Abnormal 40-54 [facility] Work Phone: Comment on above: [facility] [address] [place], [address] Hemoglobin mass conc (Bld) 13.1 g/dL Normal 13.0-16.5 [facility] Work Phone: Comment on above: [facility] [address] [place], [place], [phone] IM GRAN % 0.000 % Normal 0.0-0.9 [facility] Work Phone: Comment on above: IG% - Immature Granu locytes (promyelocytes, myelocytes andmetamyelocytes) > 1% indicates that a LEFT SHIFT is Present. [facility] [address] [place], [place], [phone] Lymphocytes #/vol (Bld) 0.79 {X10_3/ul} Abnormal 0.83-4.51 [facility] Work Phone: Comment on above: [facility] [address] [place], [place], [phone] Lymphocytes/100 WBC (Bld) 16.5 % Abnormal 19-41 [facility] Work Phone: Comment on above: [facility] [address] [place], [place], [phone] Lymphocytes/100 WBC Auto (Bld) 16.5 % Abnormal 19-41 [facility] Work Phone: MCH Auto Entitic mass (RBC) 28.7 pg Normal 27.0-32.0 [facility] Work Phone: MCH Entitic mass (RBC) 28.7 pg Normal 27.0-32.0 [facility] Internal Medicine Work Phone: Comment on above: [facility] [address] [place], [place], [phone] MCHC Auto mass conc (RBC) 34.7 {g/gl} Normal 32-36 [facility] Work Phone: MCHC mass conc (RBC) 34.7 {g/gl} Normal 32-36 [facility] Internal Medicine Work Phone: Comment on above: [facility] [address] [place], [place], [phone] MCV Auto Entitic volume (RBC) 82.9 fL Normal 80-94 [facility] Work Phone: MCV Entitic volume (RBC) 82.9 fL Normal 80-94 [facility] Work Phone: Comment on above: [facility] [address] [place], [address] Monocytes/100 WBC Auto (Bld) 9.0 % Normal 0-10 [facility] Work Phone: Comment on above: [facility] [address] [place], [address] Neutrophils/100 WBC (Bld) 74.3 % Abnormal 47-70 [facility] Work Phone: Comment on above: [facility] [address] [place], [address] Neutrophils/100 WBC Auto (Bld) 74.3 % Abnormal 47-70 [facility] Work Phone: Platelet mean volume Auto Entitic volume (Bld) 10.1 fL Normal 6.2-12.0 [facility] Work Phone: Platelet mean volume Entitic volume (Bld) 10.1 fL Normal 6.2-12.0 Comprehensi ve Internal Medicine Work Phone: Comment on above: [facility] [address] [place], [address] Platelets #/vol (Bld) 125 10*3/uL Abnormal 150-450 Co mprehensive Internal Medicine Work Phone: Comment on above: [facility] [address] [place], [address] Platelets Auto #/vol (Bld) 125 10*3/uL Abnormal 150-450 [facility] Work Phone: RBC #/vol (Bld) 4.56 {M/mm3} Abnormal 4.6-6.2 Compreh ensive Internal Medicine Work Phone: Comment on above: [facility] [address] [place], [address] RBC Auto #/vol (Bld) 4.56 {M/mm3} Abnormal 4.6-6.2 Co [facility] Work Phone: RDW SD 41.3 fL Normal 35.1-43.9 [facility] Work Phone: Comment on above: [facility] [address] [place], [address] WBC #/vol (Bld) 4.8 10*3/uL Normal 4.4-11.0 Comprehe nsive Internal Medicine Work Phone: Comment on above: [facility] [address] [place], [address] WBC Auto #/vol (Bld) 4.8 10*3/uL Normal 4.4-11.0 [facility] Work Phone: CBC W/Diff, AutomatedOrdered By: Bulk Driver on 02-03-2018 Absolute Lymph 0.63 {X10_3/ul} Abnormal 0.83-4.51 Compr ensive Internal Medicine Work Phone: Absolute Neut 3.9 {X10_3/uL} Normal 2.0-7.7 Compreh ensive Internal Medicine Work Phone: Comment on above: [facility] [address] [place], [address] Basophils/100 WBC (Bld) 0.0 % Normal 0-1 [facility] Work Phone: Comment on above: [facility] [address] [place], [address] Basophils/100 WBC Auto (Bld) 0.0 % Normal 0-1 [facility] Work Phone: Eosinophils/100 WBC (Bld) 0.0 % Normal 0-5 [facility] Work Phone: Comment on above: [facility] [address] [place], [address] Eosinophils/100 WBC Auto (Bld) 0.0 % Normal 0-5 [facility] Work Phone: Erythrocyte distribution width Auto Ratio (RBC) 13.5 % Normal 11.6-14.6 [facility] Work Phone: Erythrocyte distribution width Ratio (RBC) 13.5 % Normal 11.6-14.6 [facility] Work Phone: Comment on above: [facility] [address] [place], [address] Hematocrit Auto Volume Fraction (Bld) 39.8 % Abnormal 40-54 [facility] Work Phone: Hematocrit Volume Fraction (Bld) 39.8 % Abnormal 40-54 [facility] Work Phone: Comment on above: [facility] [address] [place], [address] Hemoglobin mass conc (Bld) 13.8 g/dL Normal 13.0-16.5 [facility] Work Phone: Comment on above: [facility] [address] [place], [address] IM GRAN % 0.000 % Normal 0.0-0.9 [facility] Work Phone: Comment on above: IG% - Immature Granu locytes (promyelocytes, myelocytes andmetamyelocytes) > 1% indicates that a LEFT SHIFT is Present. [facility] [address] [place], [address] Lymphocytes #/vol (Bld) 0.63 {X10_3/ul} Abnormal 0.83-4.51 [facility] Work Phone: Comment on above: [facility] [address] [place], [address] Lymphocytes/100 WBC (Bld) 13.2 % Abnormal 19-41 [facility] Work Phone: Comment on above: [facility] [address] [place], [address] Lymphocytes/100 WBC Auto (Bld) 13.2 % Abnormal 19-41 [facility] Work Phone: MCH Auto Entitic mass (RBC) 29.0 pg Normal 27.0-32.0 [facility] Work Phone: MCH Entitic mass (RBC) 29.0 pg Normal 27.0-32.0 [facility] Internal Medicine Work Phone: Comment on above: [facility] [address] [place], [address] MCHC Auto mass conc (RBC) 34.7 {g/gl} Normal 32-36 [facility] Work Phone: MCHC mass conc (RBC) 34.7 {g/gl} Normal 32-36 [facility] Internal Medicine Work Phone: Comment on above: [facility] [address] [place], [address] MCV Auto Entitic volume (RBC) 83.6 fL Normal 80-94 [facility] Work Phone: MCV Entitic volume (RBC) 83.6 fL Normal 80-94 [facility] Work Phone: Comment on above: [facility] [address] [place], [address] Monocytes/100 WBC Auto (Bld) 5.0 % Normal 0-10 [facility] Work Phone: Comment on above: [facility] [address] [place], [address] Neutrophils/100 WBC (Bld) 81.8 % Abnormal 47-70 [facility] Work Phone: Comment on above: [facility] [address] [place], [address] Neutrophils/100 WBC Auto (Bld) 81.8 % Abnormal 47-70 [facility] Work Phone: Platelet mean volume Auto Entitic volume (Bld) 9.6 fL Normal 6.2-12.0 [facility] Work Phone: Platelet mean volume Entitic volume (Bld) 9.6 fL Normal 6.2-12.0 Comprehensi Internal Medicine Work Phone: Comment on above: [facility] [address] [place], [address] Platelets #/vol (Bld) 129 10*3/uL Abnormal 150-450 Co cox monettehensive Internal Medicine Work Phone: Comment on above: [facility] [address] [place], [address] Platelets Auto #/vol (Bld) 129 10*3/uL Abnormal 150-450 [facility] Work Phone: RBC #/vol (Bld) 4.76 {M/mm3} Normal 4.6-6.2 Compreh ensive Internal Medicine Work Phone: Comment on above: [facility] [address] [place], [address] RBC Auto #/vol (Bld) 4.76 {M/mm3} Normal 4.6-6.2 Co [facility] Internal [facility] Work Phone: RDW SD 41.5 fL Normal 35.1-43.9 [facility] Internal [facility] Work Phone: Comment on above: [facility] [address] [place], [address] WBC #/vol (Bld) 4.8 10*3/uL Normal 4.4-11.0 Comprehe nsive Internal Medicine Work Phone: Comment on above: [facility] [address] [place], [address] WBC Auto #/vol (Bld) 4.8 10*3/uL Normal 4.4-11.0 [facility] prehensive Internal Medicine Work Phone: Comprehensive Metabolic Prof ilOrdered By: Bulk Driver on 02-03-2018 Comprehensive metabolic 2000 panel 59 mL/min Abnormal Comprehensi ve Internal Medicine Work Phone: Comment on above: G[facility] Calc [facility] [address] [place], [place], [phone] Comprehensive metabolic 2000 panel 7.5 g/dL Normal 6.4-8.2 Comprehensi ve Internal Medicine Work Phone: Comment on above: [facility] [address] [place], [place], [id number] Comprehensive metabolic 2000 panel 3.7 g/dL Normal 3.2-5.0 Comprehensi ve Internal Medicine Work Phone: Comment on above: [facility] [address] [place], [place], [phone] Comprehensive metabolic 2000 panel 3.8 g/dL Normal 2.2-4.2 Comprehensi ve Internal Medicine Work Phone: Comment on above: [facility] [address] [place], [place], [phone] Comprehensive metabolic 2000 panel 1.0 {RATIO} Normal 0.9-2.4 Comprehensi ve Internal Medicine Work Phone: Comment on above: [facility] [address] [place], [place], [address] Comprehensive metabolic 2000 panel 8.6 mg/dL Normal 8.5-10.1 Comprehensi ve Internal Medicine Work Phone: Comment on above: [facility] [address] [place], [place], [phone] Comprehensive metabolic 2000 panel 33 U/L Normal 15-37 Comprehensi ve Internal Medicine Work Phone: Comment on above: [facility] [address] [place], [address] Comprehensive metabolic 2000 panel 71 U/L Normal 45-117 Comprehensi ve Internal Medicine Work Phone: Comment on above: [facility] [address] [place], [address] Comprehensive metabolic 2000 panel 40 U/L Normal 16-61 Comprehensi ve Internal Medicine Work Phone: Comment on above: [facility] [address] [place], [address] Comprehensive metabolic 2000 panel 0.70 mg/dL Normal 0.20-1.00 Comprehensi ve Internal Medicine Work Phone: Comment on above: [facility] [address] [place], [place], [address] Comprehensive metabolic 2000 panel 135 mmol/L Abnormal 136-145 Comprehensi ve Internal Medicine Work Phone: Comment on above: [facility] [address] [place], [place], [address] Comprehensive metabolic 2000 panel 3.7 mmol/L Normal 3.5-5.1 Comprehensi ve Internal Medicine Work Phone: Comment on above: [facility] [address] [place], [place], [address] Comprehensive metabolic 2000 panel 12 1 Normal 5-15 Comprehensi ve Internal Medicine Work Phone: Comment on above: [facility] [address] [place], [address] Comprehensive metabolic 2000 panel 49 mL/min Abnormal Comprehensi ve Internal Medicine Work Phone: Comment on above: Non- GFR Calc [facility] [address] [place], [place], [phone] Comprehensive metabolic 2000 panel 173 mg/dL Abnormal 74-106 Comprehensi ve Internal Medicine Work Phone: Comment on above: Fasting Glucose resu lt greater than or equal to 126 mg/dLsuggests DIABETES MELLITUS per A.D.A. criteria.Please note revised GLUCOSE reference range [id number]/02/2018. [facility] [address] [place], [place], [id number] Comprehensive metabolic 2000 panel 1.59 mg/dL Abnormal 0.70-1.30 Comprehensi ve Internal Medicine Work Phone: Comment on above: The validity of the calculated GFR AND GFRAA in patients over70 years has not been determined. Clinical correlation isessential. [facility] [address] [place], [place], [phone] Comprehensive metabolic 2000 panel 11 mg/dL Normal 7-18 Comprehensi ve Internal Medicine Work Phone: Comment on above: [facility] [address] [place], [place], [address] Comprehensive metabolic 2000 panel 101 mmol/L Normal 98-107 Comprehensi ve Internal Medicine Work Phone: Comment on above: [facility] [address] [place], [place], [id number] Comprehensive metabolic 2000 panel 22.0 mmol/L Normal 21.0-32.0 Comprehensi ve Internal Medicine Work Phone: Comment on above: [facility] [address] [place], [place], [phone] Comprehensive metabolic 2000 panel 6.9 {RATIO} Abnormal 10-20 Comprehensi ve Internal Medicine Work Phone: Comment on above: [facility] [address] [place], [place], [id number] Culture, Blood (WB)Ordered B y: Bulk Driver on 02-03-2018 Bacteria identified Cx Nom (Bld) See Note Normal Comprehensive Internal Medicine Work Phone: Comment on above: BCNo growth in 5 day s. [facility] [address] [place], [place], [phone] Influenza A+B (Rapid GEOVANNA)Ord ered By: Bulk Driver on 02-03-2018 FLU See Note Normal Comprehensive [facility] Medicine Work Phone: Comment on above: FLU A/B Rapid Nega tive test results should be confirmed by culture. Order Rapid Viral Culture for Influenzae A+B ([id number]) if clinically indicated. Influenza Ag, Direct Presumptive NEGATIVE for Influenza A/B Antigen (See Note) Influenza A+B (Rapid GEOVANNA) See Note Normal [facility] Medicine Work Phone: Comment on above: FLU A/B Rapid Nega tive test results should be confirmed by culture. Order Rapid Viral Culture for Influenzae A+B ([id number]) if clinically indicated. Influenza Ag, Direct Presumptive NEGATIVE for Influenza A/B Antigen (See Note) [facility] [address] [place], [address] CBC, EmployeeOrdered By: Cuate tem Biomedical Scientist on 11-13-2017 Absolute Lymph 1.79 {X10_3/ul} Normal 0.83-4.51 Compr ehensive Internal Medicine Work Phone: Absolute Neut 3.3 {X10_3/uL} Normal 2.0-7.7 Compreh ensive Internal Medicine Work Phone: Basophils/100 WBC (Bld) 0.2 % Normal 0-1 [facility] Work Phone: Comment on above: [facility] [address] [place], [address] Basophils/100 WBC Auto (Bld) 0.2 % Normal 0-1 Comprehensive [facility] Medicine Work Phone: Eosinophils/100 WBC (Bld) 3.1 % Normal 0-5 [facility] Work Phone: Comment on above: [facility] [address] [place], [address](034 Eosinophils/100 WBC Auto (Bld) 3.1 % Normal 0-5 [facility] Medicine Work Phone: Erythrocyte distribution width Auto Ratio (RBC) 14.0 % Normal 11.6-14.6 [facility] Work Phone: Erythrocyte distribution width Ratio (RBC) 14.0 % Normal 11.6-14.6 Comprehensive [facility] Medicine Work Phone: Comment on above: [facility] [address] [place], [place], [phone] Hematocrit Auto Volume Fraction (Bld) 42.8 % Normal 40-54 Comprehensive Internal Medicine Work Phone: Hematocrit Volume Fraction (Bld) 42.8 % Normal 40-54 Comprehensive [facility] Medicine Work Phone: Comment on above: [facility] [address] [place], [address] Hemoglobin mass conc (Bld) 14.4 g/dL Normal 13.0-16.5 Comprehensive Internal Medicine Work Phone: Comment on above: [facility] [address] [place], [address] Lymphocytes/100 WBC (Bld) 32.2 % Normal 19-41 Comprehensive Internal Medicine Work Phone: Comment on above: [facility] [address] [place], [address] Lymphocytes/100 WBC Auto (Bld) 32.2 % Normal 19-41 Comprehensive Internal Medicine Work Phone: MCH Auto Entitic mass (RBC) 28.8 pg Normal 27.0-32.0 Comprehensive Internal Medicine Work Phone: MCH Entitic mass (RBC) 28.8 pg Normal 27.0-32.0 [facility] Internal Medicine Work Phone: Comment on above: [facility] [address] [place], [address] MCHC Auto mass conc (RBC) 33.6 {g/gl} Normal 32-36 Comprehensive Internal Medicine Work Phone: MCHC mass conc (RBC) 33.6 {g/gl} Normal 32-36 Com prehensive Internal Medicine Work Phone: Comment on above: [facility] [address] [place], [address] MCV Auto Entitic volume (RBC) 85.6 fL Normal 80-94 [facility] Medicine Work Phone: MCV Entitic volume (RBC) 85.6 fL Normal 80-94 [facility] Medicine Work Phone: Comment on above: [facility] [address] [place], [address] Monocytes/100 WBC Auto (Bld) 5.2 % Normal 0-10 Comprehensive [facility] Work Phone: Comment on above: [facility] [address] [place], [address] Neutrophils/100 WBC (Bld) 59.1 % Normal 47-70 Comprehensive [facility] Medicine Work Phone: Comment on above: [facility] [address] [place], [address] Neutrophils/100 WBC Auto (Bld) 59.1 % Normal 47-70 Comprehensive Internal Medicine Work Phone: Platelet mean volume Auto Entitic volume (Bld) 10.0 fL Normal 6.2-12.0 Comprehensive Internal Medicine Work Phone: Platelet mean volume Entitic volume (Bld) 10.0 fL Normal 6.2-12.0 Comprehensi Internal Medicine Work Phone: Comment on above: [facility] [address] [place], [address] Platelets #/vol (Bld) 165 10*3/uL Normal 150-450 [facility] Internal Medicine Work Phone: Comment on above: [facility] [address] [place], [address] Platelets Auto #/vol (Bld) 165 10*3/uL Normal 150-450 Comprehensive Internal Medicine Work Phone: RBC #/vol (Bld) 5.00 {M/mm3} Normal 4.6-6.2 Compreh ensive Internal Medicine Work Phone: Comment on above: [facility] [address] [place], [place], [phone] RBC Auto #/vol (Bld) 5.00 {M/mm3} Normal 4.6-6.2 Co mprehensive Internal Medicine Work Phone: RDW SD 43.3 fL Normal 35.1-43.9 Comprehensive Internal Medicine Work Phone: WBC #/vol (Bld) 5.6 10*3/uL Normal 4.4-11.0 Comprehe nsive Internal Medicine Work Phone: Comment on above: [facility] [address] [place], [address] WBC Auto #/vol (Bld) 5.6 10*3/uL Normal 4.4-11.0 Com prehensive Internal Medicine Work Phone: CBC, Employee 43.3 fL Normal 35.1-43.9 Comprehensi ve Internal Medicine Work Phone: Comment on above: [facility] [address] [place], [place], [phone] CBC, Employee 3.3 {X10_3/uL} Normal 2.0-7.7 Compreh ensive Internal Medicine Work Phone: Comment on above: [facility] [address] [place], [address] CBC, Employee 1.79 {X10_3/ul} Normal 0.83-4.51 Compre hensive Internal Medicine Work Phone: Comment on above: [facility] [address] [place], [address] Employee ProfileOrdered By: Bulk Driver on 11-13-2017 A/G 1.0 {RATIO} Normal 0.9-2.4 Comprehensive Internal Medicine Work Phone: Albumin mass conc 3.7 g/dL Normal 3.2-5.0 Compreh ensive Internal Medicine Work Phone: Comment on above: [facility] [address] [place], [place], [phone] Albumin/Globulin mass ratio 1.0 {RATIO} Normal 0.9-2.4 Comprehensive Internal Medicine Work Phone: Comment on above: [facility] [address] [place], [place], [phone] ALP enzyme act/vol 82 U/L Normal 45-117 Compre hensive Internal Medicine Work Phone: ALT enzyme act/vol 46 U/L Normal 16-61 Compre hensive Internal Medicine Work Phone: Comment on above: Please note revised ALT reference range [id number]/28/2018. [facility] [address] [place], [address] AST enzyme act/vol 24 U/L Normal 15-37 [facility]pre [facility] Work Phone: Comment on above: [facility] [address] [place], [place], [phone] Bilirubin mass conc 0.60 mg/dL Normal 0.20-1.00 Compr ehensive Internal Medicine Work Phone: Comment on above: [facility] [address] [place], [address] Bilirubin.direct mass conc 0.10 mg/dL Normal 0.00-0.30 Comprehensive Internal Medicine Work Phone: Comment on above: [facility] [address] [place], [address] BUN/CRE 9.6 {RATIO} Abnormal 10-20 Comprehensive Internal Medicine Work Phone: Calcium mass conc 8.3 mg/dL Abnormal 8.5-10.1 Compreh ensive Internal Medicine Work Phone: Comment on above: [facility] [address] [place], [place], [address] Chloride molar conc 108 mmol/L Abnormal 98-107 Compr ehensive Internal Medicine Work Phone: Comment on above: [facility] [address] [place], [place], [phone] CHOL:HDL 5.80 1 Normal Comprehensive Internal Medicine Work Phone: Cholesterol in HDL mass conc 28 mg/dL Abnormal Comprehensive Internal Medicine Work Phone: Comment on above: The drugs N-Acetylcy steine and Metamizole may falselydepress this assay. Reference Range HDL <40 mg/dL Low HDL Cholesterol HDL >or= 60 mg/dL High HDL Cholesterol [facility] [address] [place], [place], [phone] Cholesterol in LDL mass conc 58 mg/dL Normal 0-130 [facility] Internal Medicine Work Phone: Cholesterol in LDL mass conc 58 mg/dL Normal 0-130 Comprehensive Internal Medicine Work Phone: Comment on above: [facility] [address] [place], [place], [address] Cholesterol in VLDL mass conc 77 mg/dL Abnormal 5-40 Comprehensive Internal Medicine Work Phone: Cholesterol mass conc 163 mg/dL Normal Com prehensive Internal Medicine Work Phone: Comment on above: <200 mg/dL Desirable 200-240 mg/dL Borderline >240 mg/dL High Risk [facility] [address] [place], [address] CO2 molar conc 28.0 mmol/L Normal 21.0-32.0 Comprehen [facility] Internal Medicine Work Phone: Comment on above: [facility] [address] [place], [place], [address] Creatinine mass conc 1.14 mg/dL Normal 0.70-1.30 Comp rehensive Internal Medicine Work Phone: Comment on above: The validity of the calculated GFR AND GFRAA in patients over70 years has not been determined. Clinical correlation isessential. [facility] [address] [place], [place], [phone] EST GFR - AA 87 mL/min Normal Comprehensiv e Internal Medicine Work Phone: Comment on above: GFR Calc GAP 6 1 Normal 5-15 Comprehensive Internal Medicine Work Phone: GFR/1.73 sq M predicted among non-blacks MDRD vol rate/area (S/P/Bld) 72 mL/min/{1.73_m2} Normal Comprehe nsive Internal Medicine Work Phone: Comment on above: Non- GFR Calc [facility] [address] [place], [place], [address] Globulin Calculated mass conc (S) 3.7 g/dL Normal 2.2-4.2 [facility] Internal Medicine Work Phone: Glucose mass conc 113 mg/dL Abnormal 74-106 Compreh ensive Internal Medicine Work Phone: Comment on above: Fasting Glucose resu lt from 100 to 125 mg/dLsuggests IMPAIRED HOMEOSTASIS per A.D.A. criteria.Please note revised GLUCOSE reference range [id number]/02/2018. [facility] [address] [place], [place], [address] LDH 201 U/L Normal 87-241 Comprehensive Internal Medicine Work Phone: Phosphate mass conc 2.4 mg/dL Abnormal 2.5-4.9 Compr ehensive Internal Medicine Work Phone: Potassium molar conc 3.7 mmol/L Normal 3.5-5.1 Comp rehensive Internal Medicine Work Phone: Comment on above: [facility] [address] [place], [place], [address] Protein mass conc 7.4 g/dL Normal 6.4-8.2 Compreh ensive Internal Medicine Work Phone: Comment on above: [facility] [address] [place], [place], [address] Sodium molar conc 142 mmol/L Normal 136-145 Compreh ensive Internal Medicine Work Phone: Comment on above: [facility] [address] [place], [place], [address] Triglyceride mass conc 383 mg/dL Abnormal Co mprehensive Internal Medicine Work Phone: Comment on above: The drugs N-Acetylcy steine and Metamizole may falselydepress this assay.Serum Triglycerides Reference Interval Normal <150 mg/dL Borderline high 150 - 199 mg/dL High 200 - 499 mg/dL Very High > or = 500 mg/dL [place] [address] [place], [place], [address] Urea nitrogen mass conc 11 mg/dL Normal 7-18 Comprehensive Internal Medicine Work Phone: Comment on above: [facility] [address] [place], [place], [address] URIC 8.7 mg/dL Abnormal 3.5-7.2 Comprehensive Internal Medicine Work Phone: Comment on above: The drugs N-Acetylcy steine and Metamizole may falselydepress this assay. Employee Profile 9.6 {RATIO} Abnormal 10-20 Compreh ensive Internal Medicine Work Phone: Comment on above: [place] [address] [place], [place], [address] Employee Profile 5.80 1 Normal Comprehe nsive Internal Medicine Work Phone: Comment on above: [facility] [address] [place], [place], [address] Employee Profile 6 1 Normal 5-15 Comprehe nsive Internal Medicine Work Phone: Comment on above: [place] [address] [place], [address] Employee Profile 87 mL/min Normal Comprehe nsive Internal Medicine Work Phone: Comment on above: GFR Calc [facility] [address] [place], [place], [address] Employee Profile 77 mg/dL Abnormal 5-40 Comprehe nsive Internal Medicine Work Phone: Comment on above: [facility] [address] [place], [place], [address] Employee Profile 8.7 mg/dL Abnormal 3.5-7.2 Comprehe nsive Internal Medicine Work Phone: Comment on above: The drugs N-Acetylcy steine and Metamizole may falselydepress this assay. [facility] [address] [place], [place], [address] Employee Profile 2.4 mg/dL Abnormal 2.5-4.9 Comprehe nsive Internal Medicine Work Phone: Comment on above: [facility] [address] [place], [place], [address] Employee Profile 3.7 g/dL Normal 2.2-4.2 Comprehe nsive Internal Medicine Work Phone: Comment on above: [facility] [address] [place], [place], [address] Employee Profile 201 U/L Normal 87-241 Comprehe nsive Internal Medicine Work Phone: Comment on above: [facility] [place], [place], [address] Employee Profile 82 U/L Normal 45-117 Comprehe nsive Internal Medicine Work Phone: Comment on above: [facility] [address] [place], [place], [address] Nicotine Urine Drug ScreenOr dered By: Bulk Driver on 11-13-2017 COT DRG SCREEN Positive Normal [...] result, particularly whenpreliminary positive results are used. [facility] [address] [place], [place], [address] Nicotine Urine Drug Screen Positive Normal Comprehensive Internal Medicine Work Phone: Comment on above: Cotinine is the firs t-stage metabolite of Nicotine. [facility] [address] [place], [place], [address] Urinalysis, EmployeeOrdered By: Bulk Driver on 11-13-2017 CLARITY Clear Normal Comprehensive Internal Medicine Work Phone: Clarity Nom (U) Clear Normal Comprehen [facility] Internal Medicine Work Phone: Comment on above: [facility] [address] [place], [place], [address] COLOR Yellow Normal [facility] Internal Medicine Work Phone: Color Nom (U) Yellow Normal Comprehensi ve Internal Medicine Work Phone: Comment on above: [facility] [address] [place], [place], [address] GLUCOSE, UR Normal Normal Comprehensive Internal Medicine Work Phone: KETONE UR Negative Normal [facility] Internal Medicine Work Phone: pH UR 6.0 1 Normal 5.0 - 8.0 Comprehensive Internal Medicine Work Phone: SP.GR. DIPSTX 1.015 1 Normal 1.002-1.03 0 Comprehensive Internal Medicine Work Phone: Urinalysis, Employee 6.0 1 Normal 5.0 - 8.0 Comp rehensive Internal Medicine Work Phone: Comment on above: [facility] [address] [place], [place], [phone] Urinalysis, Employee 1.015 1 Normal 1.002-1 .03 0 [facility] Internal Medicine Work Phone: Comment on above: [facility] [address] [place], [place], [phone] Urinalysis, Employee Negative Normal Comp rehensive Internal Medicine Work Phone: Comment on above: [facility] [address] [place], [place], [phone] Urinalysis, Employee Normal Normal Comp rehensive Internal Medicine Work Phone: Comment on above: [facility] [address] [place], [place], [address] COLON BIOPSY (CHOOSE SITE)Or dered By: Bulk Driver on 02-12-2017 COLON BIOPSY (CHOOSE SITE) See Note Normal [facility] Medicine Work Phone: Comment on above: Patient: SHERMAN CORONEL : 1965 (51/M) Acct Num: [id number] Phys: Colette MORRISON,Dino Unit Num: [id number] Loc: EN Specimen: [id number] Received: 02/12/17 - 1019 Spec Type: COLON [...] one cassette. / DIONY:dakota 02/12/17 TC:1 CPT: 77855 x3 HEADER OPERATION: Colonoscopy PRE-OP DIAGNOSIS: Screening [...] material. SJ:dakota 02/13/17 Signed Mohsen Chawla 02/13/17 [facility] [address] [place], [place], [address] CBC, EmployeeOrdered By: Cuate tem Biomedical Scientist on 02-11-2017 Absolute Lymph 1.80 {X10_3/ul} Normal 0.83-4.51 Compr ehensive Internal Medicine Work Phone: Absolute Neut 4.9 {X10_3/uL} Normal 2.0-7.7 Compreh ensive Internal Medicine Work Phone: Basophils/100 WBC (Bld) 0.3 % Normal 0-1 [facility] Work Phone: Comment on above: [facility] [address] [place], [address] Basophils/100 WBC Auto (Bld) 0.3 % Normal 0-1 [facility] Work Phone: Eosinophils/100 WBC (Bld) 1.5 % Normal 0-5 [facility] Work Phone: Comment on above: [facility] [address] [place], [address] Eosinophils/100 WBC Auto (Bld) 1.5 % Normal 0-5 [facility] Work Phone: Erythrocyte distribution width Auto Ratio (RBC) 14.1 % Normal 11.6-14.6 [facility] Work Phone: Erythrocyte distribution width Ratio (RBC) 14.1 % Normal 11.6-14.6 [facility] Work Phone: Comment on above: [facility] [address] [place], [address] Hematocrit Auto Volume Fraction (Bld) 44.6 % Normal 40-54 [facility] Work Phone: Hematocrit Volume Fraction (Bld) 44.6 % Normal 40-54 [facility] Work Phone: Comment on above: [facility] [address] [place], [address] Hemoglobin mass conc (Bld) 14.9 g/dL Normal 13.0-16.5 [facility] Work Phone: Comment on above: [facility] [address] [place], [address] Lymphocytes/100 WBC (Bld) 24.8 % Normal 19-41 [facility] Work Phone: Comment on above: [facility] [address] [place], [address] Lymphocytes/100 WBC Auto (Bld) 24.8 % Normal 19-41 [facility] Work Phone: MCH Auto Entitic mass (RBC) 28.9 pg Normal 27.0-32.0 [facility] Work Phone: MCH Entitic mass (RBC) 28.9 pg Normal 27.0-32.0 [facility] Internal [facility] Work Phone: Comment on above: [facility] [address] [place], [place], [phone] MCHC Auto mass conc (RBC) 33.4 {g/gl} Normal 32-36 [facility] Work Phone: MCHC mass conc (RBC) 33.4 {g/gl} Normal 32-36 [facility] prehensive Internal Medicine Work Phone: Comment on above: [facility] [address] [place], [place], [phone] MCV Auto Entitic volume (RBC) 86.4 fL Normal 80-94 [facility] Work Phone: MCV Entitic volume (RBC) 86.4 fL Normal 80-94 [facility] Work Phone: Comment on above: [facility] [address] [place], [address] Monocytes/100 WBC Auto (Bld) 5.9 % Normal 0-10 [facility] Work Phone: Comment on above: [facility] [address] [place], [address] Neutrophils/100 WBC (Bld) 67.4 % Normal 47-70 [facility] Work Phone: Comment on above: [facility] [address] [place], [address] Neutrophils/100 WBC Auto (Bld) 67.4 % Normal 47-70 [facility] Work Phone: Platelet mean volume Auto Entitic volume (Bld) 9.7 fL Normal 6.2-12.0 [facility] Work Phone: Platelet mean volume Entitic volume (Bld) 9.7 fL Normal 6.2-12.0 Comprehensi ve Internal Medicine Work Phone: Comment on above: [facility] [address] [place], [address] Platelets #/vol (Bld) 200 10*3/uL Normal 150-450 Co mprehensive Internal Medicine Work Phone: Comment on above: [facility] [address] [place], [address] Platelets Auto #/vol (Bld) 200 10*3/uL Normal 150-450 [facility] Internal Medicine Work Phone: RBC #/vol (Bld) 5.16 {M/mm3} Normal 4.6-6.2 Compreh ensive Internal Medicine Work Phone: Comment on above: [facility] [address] [place], [address] RBC Auto #/vol (Bld) 5.16 {M/mm3} Normal 4.6-6.2 Co mprehensive Internal Medicine Work Phone: RDW SD 44.1 fL Abnormal 35.1-43.9 [facility] Work Phone: WBC #/vol (Bld) 7.3 10*3/uL Normal 4.4-11.0 Comprehe nsive Internal Medicine Work Phone: Comment on above: [facility] [address] [place], [address] WBC Auto #/vol (Bld) 7.3 10*3/uL Normal 4.4-11.0 Com prehensive Internal Medicine Work Phone: CBC, Employee 44.1 fL Abnormal 35.1-43.9 Comprehensi ve Internal Medicine Work Phone: Comment on above: [facility] [address] [place], [address] CBC, Employee 4.9 {X10_3/uL} Normal 2.0-7.7 Compreh ensive Internal Medicine Work Phone: Comment on above: [facility] [address] [place], [place], [address] CBC, Employee 1.80 {X10_3/ul} Normal 0.83-4.51 Compre [facility] Internal Medicine Work Phone: Comment on above: [place] [address] [place], [place], [address] Employee ProfileOrdered By: Bulk Driver on 02-11-2017 A/G 1.2 {RATIO} Normal 0.9-2.4 [facility] Work Phone: Albumin mass conc 4.2 g/dL Normal 3.4-5.0 Compreh ensive Internal Medicine Work Phone: Comment on above: [place] [address] [place], [place], [address] Albumin/Globulin mass ratio 1.2 {RATIO} Normal 0.9-2.4 [facility] Medicine Work Phone: Comment on above: [facility] [address] [place], [place], [address] ALP enzyme act/vol 67 U/L Normal 45-117 [facility] Work Phone: ALT enzyme act/vol 51 U/L Normal 12-78 [facility]pre [facility] Work Phone: Comment on above: [facility] [address] [place], [address] AST enzyme act/vol 24 U/L Normal 15-37 Compre [facility] Internal Medicine Work Phone: Comment on above: [facility] [address] [place], [place], [address] Bilirubin mass conc 0.60 mg/dL Normal 0.20-1.00 Compr ensive Internal Medicine Work Phone: Comment on above: [facility] [address] [place], [place], [address] Bilirubin.direct mass conc 0.16 mg/dL Normal 0.00-0.30 [facility] Work Phone: Comment on above: [facility] [address] [place], [place], [phone] BUN/CRE 9.9 {RATIO} Abnormal 10-20 [facility] Work Phone: Calcium mass conc 9.0 mg/dL Normal 8.5-10.1 Compreh ensive Internal Medicine Work Phone: Comment on above: [place] [address] [place], [place], [phone] Chloride molar conc 109 mmol/L Abnormal 98-107 Compr ehensive Internal Medicine Work Phone: Comment on above: [place] [address] [place], [place], [id number] CHOL:HDL 4.50 1 Normal [facility] Work Phone: Cholesterol in HDL mass conc 38 mg/dL Abnormal [facility] Work Phone: Comment on above: The drugs N-Acetylcy steine and Metamizole may falsely deressthis assay. Reference Range HDL <40 mg/dL Low HDL Cholesterol HDL >or= 60 mg/dL High HDL Cholesterol [facility] [address] [place], [place], [id number] Cholesterol in LDL mass conc 92 mg/dL Normal 0-130 [facility] Work Phone: Cholesterol in LDL mass conc 92 mg/dL Normal 0-130 [facility] Work Phone: Comment on above: [facility] [address] [place], [place], [address] Cholesterol in VLDL mass conc 40 mg/dL Normal 5-40 [facility] Work Phone: Cholesterol mass conc 170 mg/dL Normal Com prehensive [facility] Medicine Work Phone: Comment on above: <200 mg/dL Desirable 200-240 mg/dL Borderline >240 mg/dL High Risk [facility] [address] [place], [place], [phone] CO2 molar conc 25.0 mmol/L Normal 21.0-32.0 Comprehen sive Internal Medicine Work Phone: Comment on above: [facility] [address] [place], [address] Creatinine mass conc 1.21 mg/dL Normal 0.70-1.30 Comp rehensive Internal Medicine Work Phone: Comment on above: The validity of the calculated GFR AND GFRAA in patients over70 years has not been determined. Clinical correlation isessential. [facility] [address] [place], [place], [id number] EST GFR - AA 81 mL/min Normal Comprehensiv e Internal Medicine Work Phone: Comment on above: GFR Calc GAP 8 1 Normal 5-15 [facility] Work Phone: GFR/1.73 sq M predicted among non-blacks MDRD vol rate/area (S/P/Bld) 67 mL/min/{1.73_m2} Normal Comprehe nsive Internal Medicine Work Phone: Comment on above: Non- GFR Calc [facility] [address] [place], [place], [phone] Globulin Calculated mass conc (S) 3.5 g/dL Normal 2.3-3.5 [facility] Work Phone: Globulin mass conc (S) 3.5 g/dL Normal 2.3-3.5 Co mprehensive [facility] Work Phone: Comment on above: [facility] [address] [place], [place], [address] Glucose mass conc 107 mg/dL Normal 70-110 Compreh ensive Internal Medicine Work Phone: Comment on above: [facility] [address] [place], [place], [phone] LDH 174 U/L Normal 87-241 [facility] Work Phone: Phosphate mass conc 2.2 mg/dL Abnormal 2.5-4.9 Compr ensive [facility] Medicine Work Phone: Potassium molar conc 3.4 mmol/L Abnormal 3.5-5.1 [facility] Work Phone: Comment on above: [facility] [address] [place], [place], [phone] Protein mass conc 7.7 g/dL Normal 6.4-8.2 Compreh ensive Internal Medicine Work Phone: Comment on above: [facility] [address] [place], [place], [address] Sodium molar conc 142 mmol/L Normal 136-145 Compreh ensive Internal Medicine Work Phone: Comment on above: [facility] [address] [place], [place], [phone] Triglyceride mass conc 202 mg/dL Abnormal Co [facility] Internal [facility] Work Phone: Comment on above: The drugs N-Acetylcy steine and Metamizole may falsely deressthis assay.Serum Triglycerides Reference Interval Normal <150 mg/dL Borderline high 150 - 199 mg/dL High 200 - 499 mg/dL Very High > or = 500 mg/dL [facility] [address] [place], [address] Urea nitrogen mass conc 12 mg/dL Normal 7-18 [facility] Work Phone: Comment on above: [facility] [address] [place], [place], [phone] URIC 5.3 mg/dL Normal 3.5-7.2 [facility] Work Phone: Comment on above: The drugs N-Acetylcy steine and Metamizole may falsely deressthis assay. Employee Profile 81 mL/min Normal Comprehe nsive Internal Medicine Work Phone: Comment on above: GFR Calc [facility] [address] [place], [address] Employee Profile 9.9 {RATIO} Abnormal 10-20 Compreh ensive Internal Medicine Work Phone: Comment on above: [facility] [address] [place], [address] Employee Profile 5.3 mg/dL Normal 3.5-7.2 Comprehe nsive Internal Medicine Work Phone: Comment on above: The drugs N-Acetylcy steine and Metamizole may falsely deressthis assay. [facility] [address] [place], [place], [phone] Employee Profile 2.2 mg/dL Abnormal 2.5-4.9 Comprehe nsive Internal Medicine Work Phone: Comment on above: [facility] [address] [place], [place], [address] Employee Profile 67 U/L Normal 45-117 Comprehe nsive Internal Medicine Work Phone: Comment on above: [facility] [address] [place], [address] Employee Profile 8 1 Normal 5-15 Comprehe nsive Internal Medicine Work Phone: Comment on above: [facility] [address] [place], [address] Employee Profile 4.50 1 Normal Comprehe nsive [facility] Medicine Work Phone: Comment on above: [facility] [address] [place], [address] Employee Profile 40 mg/dL Normal 5-40 Comprehe nsive Internal Medicine Work Phone: Comment on above: [facility] [facility] [address] [place], [address] Employee Profile 174 U/L Normal 87-241 Comprehe nsive Internal Medicine Work Phone: Comment on above: [facility] [address] [place], [phone] Nicotine Urine Drug ScreenOr dered By: Bulk Driver on 02-11-2017 COT DRG SCREEN Positive Normal [...] result, particularly whenpreliminary positive results are used. [facility] [address] [place], [address] Nicotine Urine Drug Screen Positive Normal [facility] Work Phone: Comment on above: Cotinine is the firs t-stage metabolite of Nicotine. [facility] [address] [place], [address] Urinalysis, EmployeeOrdered By: Bulk Driver on 02-11-2017 CLARITY Clear Normal [facility] Work Phone: Clarity Nom (U) Clear Normal Comprehen sive Internal Medicine Work Phone: Comment on above: [facility] [address] [place], [place], [phone] COLOR Yellow Normal [facility] Work Phone: Color Nom (U) Yellow Normal Comprehensi ve Internal Medicine Work Phone: Comment on above: [facility] [address] [place], [place], [address] KETONE UR 5 mg/dL Abnormal [facility] [...] Internal Medicine Work Phone: Comment on above: [facility] [address] [place], [address] Urinalysis, Employee Negative Normal Comp rehensive Internal Medicine Work Phone: Comment on above: [facility] [address] [place], [address] Urinalysis, Employee Normal Normal Comp rehensive Internal Medicine Work Phone: Comment on above: [facility] [address] [place], [address] Urinalysis, Employee 5.0 1 Normal 5.0 - 8.0 Comp rehensive Internal Medicine Work Phone: Comment on above: [facility] [address] [place], [place], [address] Urinalysis, Employee 1.020 1 Normal 1.002-1 .03 0 [facility] Work Phone: Comment on above: [facility] [address] [place], [phone] Office Visit: Colonoscopy sc reenon 12-25-2016 Documentation of current medications (procedure) Done Invalid Interpretation Code [facility] Work Phone: Fall risk assessment No Invalid Interpretation Code [facility] Work Phone: PSA,Total - Annual ScreenOrd ered By: Bulk Driver on 11-02-2016 Prostate specific Ag mass conc 1.22 ng/mL Normal 0.00-4.00 [facility] Work Phone: Comment on above: This test was perfor med using the TPSA assay method for [employer] chemistry system. Values obtained with differentassay methods cannot be used interchangably.When changing PSA assays in the course of monitoring apatient, additional sequential testing should be carriedout to confirm baseline values. [facility] [address] [place], [address] Vitamin D,25 HydroxyOrdered By: Bulk Driver on 11-02-2016 Vitamin D 25-OH 11.3 ng/mL Normal Comprehen [facility] Internal Medicine Work Phone: Comment on above: [...] 250 nmol/L) Toxicity >100 ng/mL (>250 nmol/L) [facility] [address] [place], [place], [address] Free V7Sptaewt By: Ramiro avalos on 10-31-2016 T3 free mass conc 3.5 pg/mL Normal 2.18-3.98 Compreh ensive Internal Medicine Work Phone: Comment on above: [facility] [address] [place], [place], [phone] T4 Free DirectOrdered By: GRID stem Biomedical Scientist on 10-31-2016 T4 free mass conc 1.13 ng/dL Normal 0.76-1.46 Compreh ensive Internal Medicine Work Phone: Comment on above: [facility] [address] [place], [place], [address] Thyroid Stim Hormone (TSH)Or dered By: Bulk Driver on 10-31-2016 Thyrotropin Qn 5.53 {uIU/mL} Abnormal 0.358-3.74 Compreh ensive [facility] Medicine Work Phone: Comment on above: [facility] [address] [place], [place], [phone] Office Visit: UC: thinks he may have pink eye in R eyeon 09-05-2016 Documentation of current medications (procedure) Done Invalid Interpretation Code [facility] Work Phone: Tobacco use [facility] Never smoker Invalid Interpretation Code [facility] Work Phone: GALLBLADDEROrdered By: Toni fisher Biomedical Scientist on 07-10-2016 GALLBLADDER See Note Normal [facility] Work Phone: Comment on above: Patient: SHERMAN CORONEL : 1965 (50/M) Acct Num: [id number] Phys: Taylor MORRISON,Yehuda Unit Num: [id number] Loc: [facility] [place] Specimen: [id number] Received: 07/11/161099 Spec Type: GALLBLADDE TISSUES TISSUES: [...] measures up to 0.4 cm in thickness. Collection Administrator sections from the gallbladder and the cystic duct are submitted in one cassette./ DIONY:dakota 07/11/16 TC:2 CPT: 48734 HEADER OPERATION: Cholecystectomy, lap PRE-OP DIAGNOSIS: Epigastric pain, calculus of the gallbladder, chronic cholecystitis TISSUE SUBMITTED: Gallbladder MICROSCOPIC DESCRIPTION Slides are reviewed. MICROSCOPIC DIAGNOSIS Gallbladder: Acute and chronic cholecystitis, cholelithiasis and cholesterolosis. DIONY:dakota 07/13/16 Signed Mohsen Chawla 07/13/16 [facility] [address] [place], [address] Basic Metabolic Profile (BMP )Ordered By: Bulk Driver on 07-07-2016 Basic metabolic 2000 panel 10 mg/dL Normal 7-18 [facility] Work Phone: Comment on above: 'TROP' Serial specim en #1, #2, #3, or #4: [address] [place] [address] [place], [place], [phone] Basic metabolic 2000 panel 71 mL/min Normal [facility] Work Phone: Comment on above: Non- GFR Calc 'TROP' Serial specim en #1, #2, #3, or #4: [address] [place] [address] [place], [place], [address] Basic metabolic 2000 panel 10 1 Normal 5-15 [facility] Work Phone: Comment on above: 'TROP' Serial specim en #1, #2, #3, or #4: [address] [place] [address] [place], [place], [address] Basic metabolic 2000 panel 86 mL/min Normal [facility] Work Phone: Comment on above: GFR Calc 'TROP' Serial specim en #1, #2, #3, or #4: [address] [place] [address] [place], [place], [address] Basic metabolic 2000 panel 81.14 ml/min Normal [facility] Work Phone: Comment on above: 'TROP' Serial specim en #1, #2, #3, or #4: [address] [place] [address] [place], [address] Basic metabolic 2000 panel 26.0 mmol/L Normal 21.0-32.0 [facility] Work Phone: Comment on above: 'TROP' Serial specim en #1, #2, #3, or #4: [address] [place] [address] [place], [address] Basic metabolic 2000 panel 8.9 mg/dL Normal 8.5-10.1 [facility] Work Phone: Comment on above: 'TROP' Serial specim en #1, #2, #3, or #4: [address] [place] [address] [place], [place], [address] Basic metabolic 2000 panel 107 mmol/L Normal 98-107 [facility] Work Phone: Comment on above: 'TROP' Serial specim en #1, #2, #3, or #4: [address] [place] [address] [place], [address] Basic metabolic 2000 panel 168 mg/dL Abnormal 70-110 [facility] Work Phone: Comment on above: Fasting Glucose resu lt greater than or equal to 126 mg/dLsuggests DIABETES MELLITUS per A.D.A. criteria. 'TROP' Serial specim en #1, #2, #3, or #4: [address] [place] [address] [place], [place], [address] Basic metabolic 2000 panel 143 mmol/L Normal 136-145 [facility] Work Phone: Comment on above: 'TROP' Serial specim en #1, #2, #3, or #4: [address] [place] [address] [place], [place], [address] Basic metabolic 2000 panel 3.8 mmol/L Normal 3.5-5.1 [facility] Work Phone: Comment on above: 'TROP' Serial specim en #1, #2, #3, or #4: [address] [place] [address] [place], [place], [address] Basic metabolic 2000 panel 1.16 mg/dL Normal 0.70-1.30 [facility] Work Phone: Comment on above: The validity of the calculated GFR AND GFRAA in patients over70 years has not been determined. Clinical correlation isessential. 'TROP' Serial specim en #1, #2, #3, or #4: [address] [place] [address] [place], [address] Basic metabolic 2000 panel 8.6 {RATIO} Abnormal 10-20 [facility] Work Phone: Comment on above: 'TROP' Serial specim en #1, #2, #3, or #4: [address] [place] [address] [place], [address] CBC W/Diff, AutomatedOrdered By: Bulk Driver on 07-07-2016 Absolute Lymph 1.63 {X10_3/ul} Normal 0.83-4.51 Compr ehensive Internal Medicine Work Phone: Absolute Neut 5.5 {X10_3/uL} Normal 2.0-7.7 Compreh ensive Internal Medicine Work Phone: Comment on above: [facility] [address] [place], [address] Basophils/100 WBC (Bld) 0.1 % Normal 0-1 [facility] Work Phone: Comment on above: [facility] spital [address] [place], [address] Basophils/100 WBC Auto (Bld) 0.1 % Normal 0-1 [facility] Work Phone: Eosinophils/100 WBC (Bld) 0.9 % Normal 0-5 [facility] Work Phone: Comment on above: [facility] [address] [place], [address] Eosinophils/100 WBC Auto (Bld) 0.9 % Normal 0-5 [facility] Work Phone: Erythrocyte distribution width Auto Ratio (RBC) 13.9 % Normal 11.6-14.6 [facility] Work Phone: Erythrocyte distribution width Ratio (RBC) 13.9 % Normal 11.6-14.6 [facility] Work Phone: Comment on above: [facility] [address] [place], [address] Hematocrit Auto Volume Fraction (Bld) 42.7 % Normal 40-54 [facility] Work Phone: Hematocrit Volume Fraction (Bld) 42.7 % Normal 40-54 [facility] Work Phone: Comment on above: [facility] [address] [place], [address] Hemoglobin mass conc (Bld) 14.8 g/dL Normal 13.0-16.5 [facility] Work Phone: Comment on above: [facility] [address] [place], [address] IM GRAN % 0.100 % Normal 0.0-0.9 [facility] Work Phone: Comment on above: IG% - Immature Granu locytes (promyelocytes, myelocytes andmetamyelocytes) > 1% indicates that a LEFT SHIFT is Present. [facility] [address] [place], [place], [phone] Lymphocytes #/vol (Bld) 1.63 {X10_3/ul} Normal 0.83-4.51 [facility] Work Phone: Comment on above: [facility] [address] [place], [place], [phone] Lymphocytes/100 WBC (Bld) 21.3 % Normal 19-41 [facility] Work Phone: Comment on above: [facility] [address] [place], [address] Lymphocytes/100 WBC Auto (Bld) 21.3 % Normal 19-41 [facility] Work Phone: MCH Auto Entitic mass (RBC) 29.6 pg Normal 27.0-32.0 [facility] Work Phone: MCH Entitic mass (RBC) 29.6 pg Normal 27.0-32.0 [facility] Work Phone: Comment on above: [facility] [address] [place], [address] MCHC Auto mass conc (RBC) 34.7 {g/gl} Normal 32-36 [facility] Work Phone: MCHC mass conc (RBC) 34.7 {g/gl} Normal 32-36 [facility] Internal [facility] Work Phone: Comment on above: [facility] [address] [place], [place], [phone] MCV Auto Entitic volume (RBC) 85.4 fL Normal 80-94 [facility] Work Phone: MCV Entitic volume (RBC) 85.4 fL Normal 80-94 [facility] Work Phone: Comment on above: [facility] [address] [place], [address] Monocytes/100 WBC Auto (Bld) 5.9 % Normal 0-10 [facility] Work Phone: Comment on above: [facility] [address] [place], [address] Neutrophils/100 WBC (Bld) 71.7 % Abnormal 47-70 [facility] Work Phone: Comment on above: [facility] [address] [place], [address] Neutrophils/100 WBC Auto (Bld) 71.7 % Abnormal 47-70 [facility] Work Phone: Platelet mean volume Auto Entitic volume (Bld) 10.4 fL Normal 6.2-12.0 [facility] Work Phone: Platelet mean volume Entitic volume (Bld) 10.4 fL Normal 6.2-12.0 Comprehensi ve Internal Medicine Work Phone: Comment on above: [facility] [address] [place], [address] Platelets #/vol (Bld) 196 10*3/uL Normal 150-450 Co mprehensive [facility] Medicine Work Phone: Comment on above: [facility] [address] [place], [address] Platelets Auto #/vol (Bld) 196 10*3/uL Normal 150-450 [facility] Work Phone: RBC #/vol (Bld) 5.00 {M/mm3} Normal 4.6-6.2 Compreh ensive Internal Medicine Work Phone: Comment on above: [facility] [address] [place], [address] RBC Auto #/vol (Bld) 5.00 {M/mm3} Normal 4.6-6.2 Co mprehensive [facility] Work Phone: RDW SD 42.6 fL Normal 35.1-43.9 [facility] Work Phone: Comment on above: [facility] [address] [place], [address] WBC #/vol (Bld) 7.7 10*3/uL Normal 4.4-11.0 Comprehe nsive Internal Medicine Work Phone: Comment on above: [facility] [address] [place], [address] WBC Auto #/vol (Bld) 7.7 10*3/uL Normal 4.4-11.0 Com prehensive Internal Medicine Work Phone: LipaseOrdered By: System Man ager on 07-07-2016 Lipase enzyme act/vol 118 U/L Normal 73-393 Com prehensive Internal Medicine Work Phone: Comment on above: 'TROP' Serial specim en #1, #2, #3, or #4: [address] [place] [address] [place], [address] Liver ProfileOrdered By: Cuate tem Biomedical Scientist on 07-07-2016 Albumin mass conc 4.1 g/dL Normal 3.4-5.0 Compreh ensive Internal Medicine Work Phone: Comment on above: 'TROP' Serial specim en #1, #2, #3, or #4: [address] [place] [address] [place], [address] ALP enzyme act/vol 73 U/L Normal 45-117 Compre hensive Internal Medicine Work Phone: Comment on above: 'TROP' Serial specim en #1, #2, #3, or #4: [address] [place] [address] [place], [address] ALT enzyme act/vol 53 U/L Normal 12-78 [facility] Work Phone: Comment on above: 'TROP' Serial specim en #1, #2, #3, or #4: [address] [place] [address] [place], [address] AST enzyme act/vol 31 U/L Normal 15-37 [facility] Internal [facility] Work Phone: Comment on above: 'TROP' Serial specim en #1, #2, #3, or #4: [address] [place] [address] [place], [place], [phone] Bilirubin mass conc 0.50 mg/dL Normal 0.20-1.00 [facility] Internal Medicine Work Phone: Comment on above: 'TROP' Serial specim en #1, #2, #3, or #4: [address] [place] [address] [place], [address] Bilirubin.direct mass conc 0.14 mg/dL Normal 0.00-0.30 [facility] Work Phone: Comment on above: 'TROP' Serial specim en #1, #2, #3, or #4: [address] [place] [address] [place], [address] Globulin Calculated mass conc (S) 3.6 g/dL Abnormal 2.3-3.5 [facility] Work Phone: Globulin mass conc (S) 3.6 g/dL Abnormal 2.3-3.5 [facility] Work Phone: Comment on above: 'TROP' Serial specim en #1, #2, #3, or #4: [address] [place] [address] [place], [address] Protein mass conc 7.7 g/dL Normal 6.4-8.2 [facility] Work Phone: Comment on above: 'TROP' Serial specim en #1, #2, #3, or #4: [address] [place] [address] [place], [address] Troponin-IOrdered By: Bulk Driver on 07-07-2016 Troponin I.cardiac mass conc ng/mL Normal [facility] Work Phone: Comment on above: TROPONIN-I EXPECTED VALUES <0.05 NEGATIVE 0.06 - 0.59 AT RISK OF RI > OR = 0.60 SUGGEST RI 'TROP' Serial specim en #1, #2, #3, or #4: [address] [place] [address] [place], [address] CBC, EmployeeOrdered By: Cuate tem Biomedical Scientist on 03-27-2016 Absolute Lymph 1.97 {X10_3/ul} Normal 0.83-4.51 Compr ehensive Internal Medicine Work Phone: Absolute Neut 4.7 {X10_3/uL} Normal 2.0-7.7 Compreh ensive Internal Medicine Work Phone: Basophils/100 WBC (Bld) 0.3 % Normal 0-1 [facility] Work Phone: Comment on above: [facility] [address] [place], [address] Basophils/100 WBC Auto (Bld) 0.3 % Normal 0-1 [facility] Work Phone: Eosinophils/100 WBC (Bld) 1.6 % Normal 0-5 [facility] Work Phone: Comment on above: [facility] [address] [place], [address] Eosinophils/100 WBC Auto (Bld) 1.6 % Normal 0-5 [facility] Work Phone: Erythrocyte distribution width Auto Ratio (RBC) 14.1 % Normal 11.6-14.6 [facility] Work Phone: Erythrocyte distribution width Ratio (RBC) 14.1 % Normal 11.6-14.6 [facility] Work Phone: Comment on above: [facility] [address] [place], [place], [phone] Hematocrit Auto Volume Fraction (Bld) 40.6 % Normal 40-54 [facility] Work Phone: Hematocrit Volume Fraction (Bld) 40.6 % Normal 40-54 [facility] Work Phone: Comment on above: [facility] [address] [place], [address] Hemoglobin mass conc (Bld) 14.1 g/dL Normal 13.0-16.5 [facility] Work Phone: Comment on above: [place] [address] [place], [address] Lymphocytes/100 WBC (Bld) 26.7 % Normal 19-41 [facility] Work Phone: Comment on above: [place] [address] [place], [address] Lymphocytes/100 WBC Auto (Bld) 26.7 % Normal 19-41 [facility] Work Phone: MCH Auto Entitic mass (RBC) 29.5 pg Normal 27.0-32.0 [facility] Work Phone: MCH Entitic mass (RBC) 29.5 pg Normal 27.0-32.0 [facility] Internal Medicine Work Phone: Comment on above: [facility] [address] [place], [address] MCHC Auto mass conc (RBC) 34.7 {g/gl} Normal 32-36 [facility] Work Phone: MCHC mass conc (RBC) 34.7 {g/gl} Normal 32-36 [facility] Internal Medicine Work Phone: Comment on above: [facility] [address] [place], [place], [phone] MCV Auto Entitic volume (RBC) 84.9 fL Normal 80-94 [facility] Work Phone: MCV Entitic volume (RBC) 84.9 fL Normal 80-94 [facility] Work Phone: Comment on above: [facility] [address] [place], [address] Monocytes/100 WBC Auto (Bld) 7.6 % Normal 0-10 [facility] Work Phone: Comment on above: [facility] [address] [place], [address] Neutrophils/100 WBC (Bld) 63.5 % Normal 47-70 [facility] Work Phone: Comment on above: [facility] [address] [place], [address] Neutrophils/100 WBC Auto (Bld) 63.5 % Normal 47-70 [facility] Work Phone: Platelet mean volume Auto Entitic volume (Bld) 10.7 fL Normal 6.2-12.0 [facility] Work Phone: Platelet mean volume Entitic volume (Bld) 10.7 fL Normal 6.2-12.0 Comprehensi Internal Medicine Work Phone: Comment on above: [facility] [address] [place], [address] Platelets #/vol (Bld) 194 10*3/uL Normal 150-450 [facility] Internal Medicine Work Phone: Comment on above: [facility] [address] [place], [address] Platelets Auto #/vol (Bld) 194 10*3/uL Normal 150-450 [facility] Work Phone: RBC #/vol (Bld) 4.78 {M/mm3} Normal 4.6-6.2 Compreh ensive Internal Medicine Work Phone: Comment on above: [facility] [address] [place], [place], [id number] RBC Auto #/vol (Bld) 4.78 {M/mm3} Normal 4.6-6.2 Co mprehensive [facility] Work Phone: RDW SD 42.5 fL Normal 35.1-43.9 [facility] Work Phone: WBC #/vol (Bld) 7.4 10*3/uL Normal 4.4-11.0 Comprehe nsive Internal Medicine Work Phone: Comment on above: [facility] [address] [place], [address] WBC Auto #/vol (Bld) 7.4 10*3/uL Normal 4.4-11.0 Com prehensive Internal Medicine Work Phone: CBC, Employee 1.97 {X10_3/ul} Normal 0.83-4.51 Compre hensive Internal Medicine Work Phone: Comment on above: [facility] [address] [place], [place], [phone] CBC, Employee 4.7 {X10_3/uL} Normal 2.0-7.7 Compreh ensive Internal Medicine Work Phone: Comment on above: [facility] [address] [place], [place], [address] CBC, Employee 42.5 fL Normal 35.1-43.9 Comprehensi ve Internal Medicine Work Phone: Comment on above: [facility] [address] [place], [address] Employee ProfileOrdered By: Bulk Driver on 03-27-2016 A/G 1.1 {RATIO} Normal 0.9-2.4 [facility] Work Phone: Albumin mass conc 4.2 g/dL Normal 3.4-5.0 Compreh ensive Internal Medicine Work Phone: Comment on above: [facility] [address] [place], [place], [phone] Albumin/Globulin mass ratio 1.1 {RATIO} Normal 0.9-2.4 [facility] Work Phone: Comment on above: [facility] [address] [place], [place], [phone] ALP enzyme act/vol 75 U/L Normal 50-136 [facility]pre [facility] Work Phone: ALT enzyme act/vol 61 U/L Normal 12-78 [facility] Work Phone: Comment on above: [facility] [address] [place], [place], [phone] AST enzyme act/vol 35 U/L Normal 15-37 [facility] Work Phone: Comment on above: [facility] [address] [place], [place], [phone] Bilirubin mass conc 0.90 mg/dL Normal 0.20-1.00 Compr ensive Internal Medicine Work Phone: Comment on above: [facility] [address] [place], [place], [phone] Bilirubin.direct mass conc 0.14 mg/dL Normal 0.00-0.30 [facility] Work Phone: Comment on above: [facility] [address] [place], [place], [phone] BUN/CRE 10.5 {RATIO} Normal 10-20 Comprehensiv e Internal Medicine Work Phone: Calcium mass conc 9.0 mg/dL Normal 8.5-10.1 Compreh ensive Internal Medicine Work Phone: Comment on above: [facility] [address] [place], [address] Chloride molar conc 104 mmol/L Normal 98-107 Compr ensive Internal Medicine Work Phone: Comment on above: [facility] [address] [place], [place], [address] CHOL:HDL 5.30 1 Normal [facility] Work Phone: Cholesterol in HDL mass conc 34 mg/dL Abnormal [facility] Work Phone: Comment on above: The drugs N-Acetylcy steine and Metamizole may falsely deressthis assay. Reference Range HDL <40 mg/dL Low HDL Cholesterol HDL >or= 60 mg/dL High HDL Cholesterol [facility] [address] [place], [place], [address] Cholesterol in LDL mass conc 91 mg/dL Normal 0-130 [facility] Work Phone: Cholesterol in LDL mass conc 91 mg/dL Normal 0-130 [facility] Work Phone: Comment on above: [facility] [address] [place], [place], [address] Cholesterol in VLDL mass conc 56 mg/dL Abnormal 5-40 [facility] Work Phone: Cholesterol mass conc 181 mg/dL Normal [facility] Internal Medicine Work Phone: Comment on above: <200 mg/dL Desirable 200-240 mg/dL Borderline >240 mg/dL High Risk [facility] [address] [place], [place], [address] CO2 molar conc 27.0 mmol/L Normal 21.0-32.0 [facility] Internal Medicine Work Phone: Comment on above: [facility] [address] [place], [place], [address] Creatinine mass conc 1.14 mg/dL Normal 0.70-1.30 [facility] Work Phone: Comment on above: The validity of the calculated GFR AND GFRAA in patients over70 years has not been determined. Clinical correlation isessential. [facility] [address] [place], [place], [id number] EST GFR - AA 87 mL/min Normal Comprehensiv e Internal Medicine Work Phone: Comment on above: GFR Calc GAP 8 1 Normal 5-15 [facility] Work Phone: GFR/1.73 sq M predicted among non-blacks MDRD vol rate/area (S/P/Bld) 72 mL/min/{1.73_m2} Normal Comprehe nsive Internal Medicine Work Phone: Comment on above: Non- [facility] Calc [facility] [address] [place], [place], [phone] Globulin Calculated mass conc (S) 3.7 g/dL Abnormal 2.3-3.5 [facility] Work Phone: Globulin mass conc (S) 3.7 g/dL Abnormal 2.3-3.5 [facility] Work Phone: Comment on above: [facility] [address] [place], [place], [phone] Glucose mass conc 94 mg/dL Normal 70-110 Compreh ensive Internal Medicine Work Phone: Comment on above: [facility] [address] [place], [place], [phone] LDH 193 U/L Normal 87-241 [facility] Work Phone: Phosphate mass conc 2.5 mg/dL Normal 2.5-4.9 Compr ehensive Internal Medicine Work Phone: Potassium molar conc 3.7 mmol/L Normal 3.5-5.1 Comp rehensive Internal Medicine Work Phone: Comment on above: [facility] [address] [place], [place], [phone] Protein mass conc 7.9 g/dL Normal 6.4-8.2 Compreh ensive Internal Medicine Work Phone: Comment on above: [facility] [address] [place], [place], [phone] Sodium molar conc 139 mmol/L Normal 136-145 Compreh ensive Internal Medicine Work Phone: Comment on above: [facility] [address] [place], [place], [phone] Triglyceride mass conc 280 mg/dL Abnormal Co mprehensive [facility] Work Phone: Comment on above: The drugs N-Acetylcy steine and Metamizole may falsely deressthis assay.Serum Triglycerides Reference Interval Normal <150 mg/dL Borderline high 150 - 199 mg/dL High 200 - 499 mg/dL Very High > or = 500 mg/dL [place] [address] [place], [place], [address] Urea nitrogen mass conc 12 mg/dL Normal 7-18 [facility] Work Phone: Comment on above: [place] [address] [place], [place], [phone] URIC 6.6 mg/dL Normal 3.5-7.2 [facility] Work Phone: Comment on above: The drugs N-Acetylcy steine and Metamizole may falsely deressthis assay. Employee Profile 193 U/L Normal 87-241 Comprehe nsive Internal Medicine Work Phone: Comment on above: [place] [address] [place], [place], [address] Employee Profile 56 mg/dL Abnormal 5-40 Comprehe nsive Internal Medicine Work Phone: Comment on above: [place] [address] [place], [place], [address] Employee Profile 5.30 1 Normal Comprehe nsive Internal Medicine Work Phone: Comment on above: [place] [address] [place], [place], [address] Employee Profile 8 1 Normal 5-15 Comprehe nsive Internal Medicine Work Phone: Comment on above: [facility] [address] [place], [place], [address] Employee Profile 75 U/L Normal 50-136 Comprehe nsive Internal Medicine Work Phone: Comment on above: [facility] [address] [place], [place], [address] Employee Profile 2.5 mg/dL Normal 2.5-4.9 Comprehe nsive Internal Medicine Work Phone: Comment on above: [facility] [address] [place], [address] Employee Profile 6.6 mg/dL Normal 3.5-7.2 Comprehe nsive Internal Medicine Work Phone: Comment on above: The drugs N-Acetylcy steine and Metamizole may falsely deressthis assay. [place] [address] [place], [place], [address] Employee Profile 10.5 {RATIO} Normal 10-20 Compre hensive Internal Medicine Work Phone: Comment on above: [place] [address] [place], [place], [address] Employee Profile 87 mL/min Normal Comprehe nsive Internal Medicine Work Phone: Comment on above: GFR Calc [facility] [address] [place], [place], [phone] Nicotine Urine Drug ScreenOr dered By: Bulk Driver on 03-27-2016 COT DRG SCREEN Positive Normal [...] is the firs t-stage metabolite of Nicotine. [facility] [address] [place], [place], [phone] Nicotine Urine Drug Screen Normal [facility] [...] result, particularly whenpreliminary positive results are used. [facility] [address] [place], [place], [address] Urinalysis, EmployeeOrdered By: Bulk Driver on 03-27-2016 CLARITY Clear Normal [facility] Work Phone: Clarity Nom (U) Clear Normal Comprehen sive Internal Medicine Work Phone: Comment on above: How was Urine Obtain ed? CLEAN [facility] [address] [place], [place], [address] COLOR Yellow Normal [facility] Work Phone: Color Nom (U) Yellow Normal Comprehensi ve Internal Medicine Work Phone: Comment on above: How was Urine Obtain ed? CLEAN [facility] [address] [place], [place], [id number] LEUK ESTERASE Negative Normal Comprehensi ve Internal [...] on above: How was Urine Obtain ed? [facility] [address] [place], [place], [phone] Urinalysis, Employee Normal Normal Comp rehensive Internal Medicine Work Phone: Comment on above: How was Urine Obtain ed? [facility] [address] [place], [place], [address] Urinalysis, Employee Negative Normal Comp rehensive Internal Medicine Work Phone: Comment on above: How was Urine Obtain ed? [facility] [address] [place], [place], [address] Urinalysis, Employee 1.020 1 Normal 1.002-1 .03 0 [facility] Work Phone: Comment on above: How was Urine Obtain ed? [facility] [address] 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 [employer] Work Phone: Cholesterol 147 mg/dL Invalid Interpretation Code [facility] [employer] Work Phone: CO2 23.0 mmol/L Invalid Interpretation Code [facility] [employer] Work Phone: Creatinine 1.04 mg/dL Invalid Interpretation Code [facility] [employer] Work Phone: HDL Cholesterol 31 mg/dL Invalid Interpretation Code [facility] [employer] Work Phone: Hematocrit (HCT) 40.9 % Invalid Interpretation Code [facility] [employer] Work Phone: Hemoglobin (HGB) 13.8 g/dL Invalid Interpretation Code [facility] [employer] Work Phone: LDL Cholesterol 65 mg/dL Invalid Interpretation Code [facility] [employer] Work Phone: Platelets 171 10*3/mm3 Invalid Interpretation Code [facility] Work Phone: Potassium 3.6 mmol/L Invalid Interpretation Code [facility] [employer] Work Phone: Sodium 144 mmol/L Invalid Interpretation Code [facility] [employer] Work Phone: Triglyceride 255 mg/dL Invalid Interpretation Code [facility] Work Phone: very low density lipoproteins 51 mg/dL Invalid Interpretation Code [facility] Work Phone: WBC (Leukocytes) 5.3 10*3/uL Invalid Interpretation Code [facility] Work Phone: Basic Metabolic Profile (BMP )Ordered By: Bulk Driver on 02-12-2016 Basic metabolic 2000 panel 80 mL/min Normal [facility] Work Phone: Comment on above: GFR Calc 'TROP' Serial specim en #1, #2, #3, or #4: [address] [place] [address] [address] [place], [place], [id number] Basic metabolic 2000 panel 66 mL/min Normal [facility] Work Phone: Comment on above: Non- GFR Calc 'TROP' Serial specim en #1, #2, #3, or #4: [address] [place] [address] [place], [place], [address] Basic metabolic 2000 panel 8.9 mg/dL Normal 8.5-10.1 [facility] Work Phone: Comment on above: 'TROP' Serial specim en #1, #2, #3, or #4: [address] [place] [address] [place], [place], [address] Basic metabolic 2000 panel 108 mmol/L Abnormal 98-107 [facility] Work Phone: Comment on above: 'TROP' Serial specim en #1, #2, #3, or #4: [address] [place] [address] [place], [place], [address] Basic metabolic 2000 panel 14.6 {RATIO} Normal 10-20 [facility] Work Phone: Comment on above: 'TROP' Serial specim en #1, #2, #3, or #4: [address] [place] [address] [place], [place], [address] Basic metabolic 2000 panel 76.52 ml/min Normal [facility] Work Phone: Comment on above: 'TROP' Serial specim en #1, #2, #3, or #4: [address] [place] [address] [place], [place], [address] Basic metabolic 2000 panel 144 mmol/L Normal 136-145 [facility] Work Phone: Comment on above: 'TROP' Serial specim en #1, #2, #3, or #4: [address] [place] [address] [place], [place], [address] Basic metabolic 2000 panel 3.8 mmol/L Normal 3.5-5.1 [facility] Work Phone: Comment on above: 'TROP' Serial specim en #1, #2, #3, or #4: [address] [place] [address] [place], [place], [address] Basic metabolic 2000 panel 1.23 mg/dL Normal 0.70-1.30 [facility] Work Phone: Comment on above: The validity of the calculated GFR AND GFRAA in patients over70 years has not been determined. Clinical correlation isessential. 'TROP' Serial specim en #1, #2, #3, or #4: [address] [place] [address] [place], [address] Basic metabolic 2000 panel 28.0 mmol/L Normal 21.0-32.0 [facility] Work Phone: Comment on above: 'TROP' Serial specim en #1, #2, #3, or #4: [address] [place] [address] [place], [address] Basic metabolic 2000 panel 8 1 Normal 5-15 [facility] Work Phone: Comment on above: 'TROP' Serial specim en #1, #2, #3, or #4: [address] [place] [address] [place], [address] Basic metabolic 2000 panel 18 mg/dL Normal 7-18 [facility] Work Phone: Comment on above: 'TROP' Serial specim en #1, #2, #3, or #4: [address] [place] [address] [place], [address] Basic metabolic 2000 panel 150 mg/dL Abnormal 70-110 [facility] Work Phone: Comment on above: Fasting Glucose resu lt greater than or equal to 126 mg/dLsuggests DIABETES MELLITUS per A.D.A. criteria. 'TROP' Serial specim en #1, #2, #3, or #4: [address] [place] [address] [place], [address] CBC W/Diff, AutomatedOrdered By: Bulk Driver on 02-12-2016 Absolute Lymph 2.16 {X10_3/ul} Normal 0.83-4.51 Compr ehensive Internal Medicine Work Phone: Absolute Neut 3.6 {X10_3/uL} Normal 2.0-7.7 Compreh ensive Internal Medicine Work Phone: Comment on above: [facility] [address] [place], [address] Basophils/100 WBC (Bld) 0.3 % Normal 0-1 [facility] Work Phone: Comment on above: [facility] [address] [place], [address] Basophils/100 WBC Auto (Bld) 0.3 % Normal 0-1 [facility] Work Phone: Eosinophils/100 WBC (Bld) 1.7 % Normal 0-5 [facility] Work Phone: Comment on above: [facility] [address] [place], [address] Eosinophils/100 WBC Auto (Bld) 1.7 % Normal 0-5 [facility] Work Phone: Erythrocyte distribution width Auto Ratio (RBC) 13.7 % Normal 11.6-14.6 [facility] Work Phone: Erythrocyte distribution width Ratio (RBC) 13.7 % Normal 11.6-14.6 [facility] Work Phone: Comment on above: [facility] [address] [place], [address] Hematocrit Auto Volume Fraction (Bld) 44.0 % Normal 40-54 [facility] Work Phone: Hematocrit Volume Fraction (Bld) 44.0 % Normal 40-54 [facility] Work Phone: Comment on above: [facility] [address] [place], [address] Hemoglobin mass conc (Bld) 14.9 g/dL Normal 13.0-16.5 [facility] Work Phone: Comment on above: [facility] [address] [place], [address] IM GRAN % 0.300 % Normal 0.0-0.9 [facility] Work Phone: Comment on above: IG% - Immature Granu locytes (promyelocytes, myelocytes andmetamyelocytes) > 1% indicates that a LEFT SHIFT is Present. [facility] [address] [place], [address] Lymphocytes #/vol (Bld) 2.16 {X10_3/ul} Normal 0.83-4.51 [facility] Work Phone: Comment on above: [place] [address] [place], [address] Lymphocytes/100 WBC (Bld) 33.4 % Normal 19-41 [facility] Work Phone: Comment on above: [place] [address] [place], [address] Lymphocytes/100 WBC Auto (Bld) 33.4 % Normal 19-41 [facility] Work Phone: MCH Auto Entitic mass (RBC) 29.3 pg Normal 27.0-32.0 [facility] Work Phone: MCH Entitic mass (RBC) 29.3 pg Normal 27.0-32.0 [facility] Internal Medicine Work Phone: Comment on above: [place] [address] [place], [address] MCHC Auto mass conc (RBC) 33.9 {g/gl} Normal 32-36 [facility] Work Phone: MCHC mass conc (RBC) 33.9 {g/gl} Normal 32-36 [facility] Internal Medicine Work Phone: Comment on above: [facility] [address] [place], [address] MCV Auto Entitic volume (RBC) 86.4 fL Normal 80-94 [facility] Work Phone: MCV Entitic volume (RBC) 86.4 fL Normal 80-94 [facility] Work Phone: Comment on above: [facility] [address] [place], [address] Monocytes/100 WBC Auto (Bld) 8.2 % Normal 0-10 [facility] Work Phone: Comment on above: [facility] [address] [place], [address] Neutrophils/100 WBC (Bld) 56.1 % Normal 47-70 [facility] Work Phone: Comment on above: [facility] [address] [place], [address] Neutrophils/100 WBC Auto (Bld) 56.1 % Normal 47-70 [facility] Work Phone: Platelet mean volume Auto Entitic volume (Bld) 10.0 fL Normal 6.2-12.0 [facility] Work Phone: Platelet mean volume Entitic volume (Bld) 10.0 fL Normal 6.2-12.0 Comprehensi Internal Medicine Work Phone: Comment on above: [facility] [address] [place], [address] Platelets #/vol (Bld) 177 10*3/uL Normal 150-450 Co mprensive Internal Medicine Work Phone: Comment on above: [facility] [address] [place], [address] Platelets Auto #/vol (Bld) 177 10*3/uL Normal 150-450 [facility] Work Phone: RBC #/vol (Bld) 5.09 {M/mm3} Normal 4.6-6.2 Compreh ensive Internal Medicine Work Phone: Comment on above: [facility] [address] [place], [address] RBC Auto #/vol (Bld) 5.09 {M/mm3} Normal 4.6-6.2 Co mprehensive [facility] Work Phone: RDW SD 43.4 fL Normal 35.1-43.9 [facility] Work Phone: Comment on above: [facility] [address] [place], [address] WBC #/vol (Bld) 6.5 10*3/uL Normal 4.4-11.0 Comprehe nsive Internal Medicine Work Phone: Comment on above: [facility] [address] [place], [address] WBC Auto #/vol (Bld) 6.5 10*3/uL Normal 4.4-11.0 [facility] prehensive Internal Medicine Work Phone: Troponin-IOrdered By: Bulk Driver on 02-12-2016 Troponin I.cardiac mass conc ng/mL Normal [facility] Work Phone: Comment on above: TROPONIN-I EXPECTED VALUES <0.05 NEGATIVE 0.06 - 0.59 AT RISK OF RI > OR = 0.60 SUGGEST RI 'TROP' Serial specim en #1, #2, #3, or #4: [address] [place] [address] [place], [id number] PTH,INTACTOrdered By: Bulk Driver on 03-04-2015 PTH,Intact 58 pg/mL Normal 14-72 [facility] Work Phone: PTH,INTACT 58 pg/mL Normal 14-72 [facility] Work Phone: Comment on above: Test performed at:[facility] [address] [place] [address] Vitamin D,25 HydroxyOrdered By: Bulk Driver on 03-04-2015 Vitamin D 25-OH 5.3 ng/mL [...] Toxicity >100 ng/mL (>250 nmol/L) Test performed at:[facility] [address] [place] [address] CBC, EmployeeOrdered By: Cuate tem Biomedical Scientist on 02-15-2015 Absolute Lymph 1.92 {X10_3/ul} Normal 0.83-4.51 Compr ehensive [facility] Work Phone: Absolute Neut 3.4 {X10_3/uL} Normal 2.0-7.7 Compreh ensive [facility] Work Phone: Basophils/100 WBC (Bld) 0.2 % Normal 0-1 [facility] Work Phone: Comment on above: Test performed at:[facility] [address] [place] [address] Basophils/100 WBC Auto (Bld) 0.2 % Normal 0-1 [facility] Work Phone: Eosinophils/100 WBC (Bld) 1.9 % Normal 0-5 [facility] Work Phone: Comment on above: Test performed at:[facility] [address] [place] [address] Eosinophils/100 WBC Auto (Bld) 1.9 % Normal 0-5 [facility] Work Phone: Erythrocyte distribution width Auto Ratio (RBC) 13.5 % Normal 11.6-14.6 [facility] Work Phone: Erythrocyte distribution width Ratio (RBC) 13.5 % Normal 11.6-14.6 [facility] Work Phone: Comment on above: Test performed at:[facility] [address] [place] [address] Hematocrit Auto Volume Fraction (Bld) 42.2 % Normal 40-54 [facility] Work Phone: Hematocrit Volume Fraction (Bld) 42.2 % Normal 40-54 [facility] Work Phone: Comment on above: Test performed at:[facility] [address] [place] [address] Hemoglobin mass conc (Bld) 14.4 g/dL Normal 13.0-16.5 [facility] Work Phone: Comment on above: Test performed at:[facility] [address] [place] [address] Lymphocytes/100 WBC (Bld) 33.2 % Normal 19-41 [facility] Work Phone: Comment on above: Test performed at:[facility] [address] [place] [address] Lymphocytes/100 WBC Auto (Bld) 33.2 % Normal 19-41 [facility] Work Phone: MCH Auto Entitic mass (RBC) 29.1 pg Normal 27.0-32.0 [facility] Work Phone: MCH Entitic mass (RBC) 29.1 pg Normal 27.0-32.0 [facility] Work Phone: Comment on above: Test performed at:[facility] [address] [place] [address] MCHC Auto mass conc (RBC) 34.1 {g/gl} Normal 32-36 [facility] Work Phone: MCHC mass conc (RBC) 34.1 {g/gl} Normal 32-36 [facility] prehensive Internal Medicine Work Phone: Comment on above: Test performed at:[facility] [address] [place] [address] MCV Auto Entitic volume (RBC) 85.4 fL Normal 80-94 [facility] Work Phone: MCV Entitic volume (RBC) 85.4 fL Normal 80-94 [facility] Work Phone: Comment on above: Test performed at:[facility] [address] [place] [address] Monocytes/100 WBC Auto (Bld) 6.4 % Normal 0-10 [facility] Work Phone: Comment on above: Test performed at:[facility] [address] [place] [address] Neutrophils/100 WBC (Bld) 58.1 % Normal 47-70 [facility] Work Phone: Comment on above: Test performed at:[facility] [address] [place] [address] Neutrophils/100 WBC Auto (Bld) 58.1 % Normal 47-70 [facility] Work Phone: Platelet mean volume Auto Entitic volume (Bld) 9.9 fL Normal 6.2-12.0 [facility] Work Phone: Platelet mean volume Entitic volume (Bld) 9.9 fL Normal 6.2-12.0 Comprehensi [facility] Work Phone: Comment on above: Test performed at:[facility] [address] [place] [address] Platelets #/vol (Bld) 156 10*3/uL Normal 150-450 Co mprehensive [facility] Work Phone: Comment on above: Test performed at:[facility] [address] [place], [place] [address] Platelets Auto #/vol (Bld) 156 10*3/uL Normal 150-450 [facility] Work Phone: RBC #/vol (Bld) 4.94 {M/mm3} Normal 4.6-6.2 Compreh ensive [facility] Work Phone: Comment on above: Test performed at:[facility] [address] [place] [address] RBC Auto #/vol (Bld) 4.94 {M/mm3} Normal 4.6-6.2 [facility] Work Phone: RDW SD 41.5 fL Normal 35.1-43.9 [facility] Work Phone: WBC #/vol (Bld) 5.8 10*3/uL Normal 4.4-11.0 Comprehe nsive [facility] Work Phone: Comment on above: Test performed at:[facility] [address] [place] [address] WBC Auto #/vol (Bld) 5.8 10*3/uL Normal 4.4-11.0 Com prehensive [facility] Work Phone: CBC, Employee 1.92 {X10_3/ul} Normal 0.83-4.51 Compre hensive [facility] Work Phone: Comment on above: Test performed at:[facility] [address] [place] [address] CBC, Employee 41.5 fL Normal 35.1-43.9 Comprehensi ve Internal Medicine Work Phone: Comment on above: Test performed at:[facility] [address] [place] [address] CBC, Employee 3.4 {X10_3/uL} Normal 2.0-7.7 Compreh ensive [facility] Work Phone: Comment on above: Test performed at:[facility] [address] [place], [place] [address] Employee ProfileOrdered By: Bulk Driver on 02-15-2015 A/G 1.3 {RATIO} Normal 0.9-2.4 [facility] Work Phone: Albumin mass conc 3.9 g/dL Normal 3.4-5.0 Compreh ensive [facility] Work Phone: Comment on above: Test performed at:[facility] [address] [place] [address] Albumin/Globulin mass ratio 1.3 {RATIO} Normal 0.9-2.4 [facility] Work Phone: Comment on above: Test performed at:[facility] [address] [place] [address] ALP enzyme act/vol 75 U/L Normal 50-136 [facility] Work [facility]: ALT enzyme act/vol 56 U/L Normal 12-78 [facility] Work Phone: Comment on above: Test performed at:[facility] [address] [place] [address] AST enzyme act/vol 28 U/L Normal 15-37 [facility]pre [facility] Work Phone: Comment on above: Test performed at:[facility] [address] [place] [address] Bilirubin mass conc 0.60 mg/dL Normal 0.20-1.00 Compr ensive [facility] Work Phone: Comment on above: Test performed at:[facility] [address] [place] [address] Bilirubin.direct mass conc 0.14 mg/dL Normal 0.00-0.30 [facility] Work Phone: Comment on above: Test performed at:[facility] [address] [place] [address] BUN/CRE 12.5 {RATIO} Normal 10-20 Comprehensiv e [facility] Medicine Work Phone: Calcium mass conc 8.6 mg/dL Normal 8.5-10.1 Compreh ensive [facility] Work Phone: Comment on above: Test performed at:[facility] [address] [place] [address] Chloride molar conc 106 mmol/L Normal 98-107 Compr ehensive [facility] Medicine Work Phone: Comment on above: Test performed at:[facility] [address] [place] [address] Cholesterol in HDL mass conc 28 mg/dL Abnormal [facility] Work Phone: Comment on above: Reference Range HDL <40 mg/dL Low HDL Cholesterol HDL >or= 60 mg/dL High HDL Cholesterol Test performed at:[facility] [address] [place] [address] Cholesterol in LDL mass conc 88 mg/dL Normal 0-130 [facility] Work Phone: Cholesterol in LDL mass conc 88 mg/dL Normal 0-130 [facility] Work Phone: Comment on above: Test performed at:[facility] [address] [place] [address] Cholesterol in VLDL mass conc 56 mg/dL Abnormal 5-40 [facility] Work Phone: Cholesterol mass conc 172 mg/dL Normal Com prehensive [facility] Work Phone: Comment on above: <200 mg/dL Desirable 200-240 mg/dL Borderline >240 mg/dL High Risk Test performed at:[facility] [address] [place] [address] CO2 molar conc 28.0 mmol/L Normal 21.0-32.0 Comprehen sive [facility] Work Phone: Comment on above: Test performed at:[facility] [address] [place], [place] [id number] Creatinine mass conc 1.2 mg/dL Normal 0.8-1.3 Comp rehensive [facility] Work Phone: Comment on above: Test performed at:[facility] [address] [place], [place] [id number] EST GFR - AA 82 mL/min Normal Comprehensiv e [facility] Medicine Work Phone: GAP 6 1 Normal 5-15 [facility] Work Phone: GFR/1.73 sq M predicted among non-blacks MDRD vol rate/area (S/P/Bld) 68 mL/min/{1.73_m2} Normal Comprehe nsive [facility] Work Phone: Comment on above: Test performed at:[facility] [address] [place] [address] Globulin Calculated mass conc (S) 3.1 g/dL Normal 2.7-4.2 [facility] Work Phone: Globulin mass conc (S) 3.1 g/dL Normal 2.7-4.2 Co m[facility] Work Phone: Comment on above: Test performed at:[facility] [address] [place] [address] Glucose mass conc 100 mg/dL Normal 70-110 Compreh ensive [facility] Work Phone: Comment on above: Test performed at:[facility] [address] [place] [address] HDLEMP 28 mg/dL Abnormal Comprehensive [...] Work Phone: Comment on above: Test performed at:[facility] [address] [place] [address] Protein mass conc 7.0 g/dL Normal 6.4-8.2 Compreh ensive [facility] Work Phone: Comment on above: Test performed at:[facility] [address] [place] [address] Sodium molar conc 140 mmol/L Normal 136-145 Compreh ensive [facility] Work Phone: Comment on above: Test performed at:[facility] [address] [place] [address] Triglyceride mass conc 280 mg/dL Abnormal 0-199 Co m[facility] Work Phone: Comment on above: Serum Triglycerides Reference Interval Normal <150 mg/dL Borderline high 150 - 199 mg/dL High 200 - 499 mg/dL Very High > or = 500 mg/dL Test performed at:[facility] [address] [place] [address] Urea nitrogen mass conc 15 mg/dL Normal 7-18 [facility] Work Phone: Comment on above: Test performed at:[facility] [address] [place] [address] URIC 4.6 mg/dL Normal 3.5-7.2 [facility] Work Phone: Employee Profile 82 mL/min Normal Comprehe nsive [facility] Work Phone: Comment on above: Test performed at:[facility] [address] [place] [address] Employee Profile 12.5 {RATIO} Normal 10-20 Compre hensive [facility] Work Phone: Comment on above: Test performed at:[facility] [address] [place] [address] Employee Profile 4.6 mg/dL Normal 3.5-7.2 Comprehe nsive [facility] Work Phone: Comment on above: Test performed at:[facility] [address] [place], [place] [id number] Employee Profile 2.3 mg/dL Abnormal 2.5-4.9 Comprehe nsive [facility] Work Phone: Comment on above: Test performed at:[facility] [address] [place] [address] Employee Profile 75 U/L Normal 50-136 Comprehe nsive [facility] Work Phone: Comment on above: Test performed at:[facility] [address] [place] [address] Employee Profile 6 1 Normal 5-15 Comprehe nsive [facility] Work Phone: Comment on above: Test performed at:[facility] [address] [place] [address] Employee Profile 28 mg/dL Abnormal Comprehe nsive [facility] Work Phone: Comment on above: Reference Range HDL <40 mg/dL Low HDL Cholesterol HDL >or= 60 mg/dL High HDL Cholesterol Test performed at:[facility] [address] [place] [address] Employee Profile 56 mg/dL Abnormal 5-40 Comprehe nsive [facility] Work Phone: Comment on above: Test performed at:[facility] [address] [place] [address] Employee Profile 171 U/L Normal 84-246 Comprehe nsive [facility] Work Phone: Comment on above: Test performed at:[facility] [address] [place] [address] Urinalysis, EmployeeOrdered By: Bulk Driver on 02-15-2015 CLARITY Clear Normal [facility] Work Phone: Clarity Nom (U) Clear Normal Comprehen sive [facility] Work Phone: Comment on above: Test performed at:[facility] [address] [place] [address] COLOR Yellow Normal [facility] Work Phone: Color Nom (U) Yellow Normal Comprehensi ve Internal Medicine Work Phone: Comment on above: Test performed at:[facility] [address] [place] [address] LEUK ESTERASE Negative Normal Comprehensi ve [facility] Work Phone: pH UR 6.0 1 Normal 5.0 - 8.0 [facility] Work Phone: SP.GR. DIPSTX 1.015 1 Normal 1.002-1.03 0 [facility] Work Phone: UROBILI Normal Normal [facility] Work Phone: Urinalysis, Employee Negative Normal Comp rehensive [facility] Work Phone: Comment on above: Test performed at:[facility] [address] [place] [address] Urinalysis, Employee 1.015 1 Normal 1.002-1 .03 0 [facility] Work Phone: Comment on above: Test performed at:[facility] [address] [place] [address] Urinalysis, Employee 6.0 1 Normal 5.0 - 8.0 [facility] rehensive Internal Medicine Work Phone: Comment on above: Test performed at:[facility] [address] [place] [address] Urinalysis, Employee Normal Normal Comp rehensive [facility] Work Phone: Comment on above: Test performed at:[facility] [address] [place] [address] Uric AcidOrdered By: Bulk Driver on 11-17-2014 Urate mass conc 3.5 mg/dL Normal 3.5-7.2 Comprehen [facility] Internal Medicine Work Phone: Comment on above: Test performed at:[facility] [address] [place] [address] Rheumatoid FactorOrdered By: Bulk Driver on 09-29-2014 Rheumatoid Factor < 10.0 Normal Compreh ensive [facility] Work Phone: Comment on above: Test performed at:[facility] [address] [place] [address] Uric AcidOrdered By: Bulk Driver on 09-29-2014 Urate mass conc 9.5 mg/dL Abnormal 3.5-7.2 [facility] Internal Medicine Work Phone: Comment on above: Test performed at:[facility] [address] [place] [address] Uric Acid 9.5 mg/dL Abnormal 3.5-7.2 [facility] Work Phone: Q1INjalfsd By: System Crowdpac r on 04-14-2014 Hemoglobin A1c/Hemoglobin.total mass fraction [...] Internal Medicine Work Phone: LIVEROrdered By: System CloudVel[employer] on 07-08-2013 Albumin mass conc 4.1 g/dL [...] [facility] Medicine Work Phone: PSAOrdered By: System Crowdpac r on 07-11-2012 Prostate specific Ag mass conc 1.14 ng/mL Normal 0.00-4.00 [facility] Work Phone: No Panel Information Nasal Screen MRSA/MSSA [facility] Work Phone: Vital Signs Date Time Vital Sign Value Performing Clinician Facility 05-22-2023 13:47-0400 Body height 180.34 cm Brendon Landry LPN [facility]; [facility] Work Phone: 05-22-2023 13:47-0400 Body mass index (BMI) [Ratio] 41.35 kg/m2 [facility]; [facility] Work Phone: 05-22-2023 13:47-0400 Body surface area Derived from formula 2.49 m2 [facility]; [facility] Work Phone: 05-22-2023 13:47-0400 Body temperature 97.6 [degF] [facility]; [facility] Work Phone: 05-22-2023 13:47-0400 Body weight 134.49 kg [facility]; [facility] Work Phone: 05-22-2023 13:47-0400 Diastolic blood pressure 72 mm[Hg] [facility]; [facility] Work Phone: Comment on above: Patient Position: Sitting; Cuff Location : Left Arm; Cuff Size: Standard 05-22-2023 13:47-0400 Heart rate 83 /min [facility]; [facility] Work Phone: Comment on above: Pattern: Regular 05-22-2023 13:47-0400 Respiratory rate 18 /min [facility]; [facility] Work Phone: Comment on above: Pattern: Unlabored 05-22-2023 13:47-0400 SaO2% (BldA) [Mass fraction] 96 % [facility]; [facility] Work Phone: Comment on above: Room air 05-22-2023 13:47-0400 Systolic blood pressure 134 mm[Hg] [facility]; [facility] Work Phone: Comment on above: Patient Position: Sitting; Cuff Location : Left Arm; Cuff Size: Standard 04-20-2022 11:28-0400 Body height 180.34 cm [facility]; [facility] Work Phone: 04-20-2022 11:28-0400 Body mass index (BMI) [Ratio] 42.68 kg/m2 Yissel Milan [facility]; [facility] Work Phone: 04-20-2022 11:28-0400 Body surface area Derived from formula 2.53 m2 Yissel Milan [facility]; [facility] Work Phone: 04-20-2022 11:28-0400 Body temperature 97.3 [degF] Yissel Milan [facility]; [facility] Work Phone: Comment on above: Method: Infrared 04-20-2022 11:28-0400 Body weight 138.8 kg Yissel Milan [facility]; [facility] Work Phone: 04-20-2022 11:28-0400 Diastolic blood pressure 70 mm[Hg] Yissel Milan [facility]; [facility] Work Phone: Comment on above: Patient Position: Sitting; Cuff Location : Left Arm; Cuff Size: Standard 04-20-2022 11:28-0400 Heart rate 75 /min Yissel Milan [facility]; [facility] Work Phone: Comment on above: Pattern: Regular 04-20-2022 11:28-0400 Respiratory rate 18 /min Yissel Milan [facility]; [facility] Work Phone: Comment on above: Pattern: Unlabored 04-20-2022 11:28-0400 SaO2% (BldA) [Mass fraction] 97 % Yissel Milan [facility]; [facility] Work Phone: Comment on above: Room air 04-20-2022 11:28-0400 Systolic blood pressure 152 mm[Hg] Yissel Milan [facility]; [facility] Work Phone: Comment on above: Patient Position: Sitting; Cuff Location : Left Arm; Cuff Size: Standard 03-21-2022 12:56-0400 Body temperature 97.6 [degF] Dr. Birgit Mcclelland Work Phone: [facility] Work Phone: 03-21-2022 12:56-0400 Diastolic blood pressure 67 mm[Hg] Dr. Birgit Mcclelland Work Phone: [facility] Work Phone: 03-21-2022 12:56-0400 Heart rate 75 /min Dr. Birgit Mcclelland Work Phone: [facility] Work Phone: 03-21-2022 12:56-0400 Respiratory rate 18 /min Dr. Birgti Mcclelland Work Phone: [facility] Work Phone: 03-21-2022 12:56-0400 SaO2% (BldA) [Mass fraction] 97 % Dr. Birgit Mcclelland Work Phone: [facility] Work Phone: 03-21-2022 12:56-0400 Systolic blood pressure 130 mm[Hg] Dr. Birgit Mcclelland Work Phone: [facility] Work Phone: 03-21-2022 06:25-0400 Body height 180.[address] Birgit Mcclelland Work Phone: [facility] Work Phone: 03-21-2022 06:25-0400 Body mass index (BMI) [Ratio] 42.4 kg/m2 Dr. Birgit Mcclelland Work Phone: [facility] Work Phone: 03-21-2022 06:25-0400 Body weight [address] Birgit Mcclelland Work Phone: [facility] Work Phone: 02-26-2022 10:03-0400 Body height 180.34 cm Yissel Milan CMA [facility]; [facility] Work Phone: 02-26-2022 10:03-0400 Body mass index (BMI) [Ratio] 42.68 kg/m2 Yissel Milan [facility]; [facility] Work Phone: 02-26-2022 10:03-0400 Body surface area Derived from formula 2.53 m2 Yissel Milan [facility]; [facility] Work Phone: 02-26-2022 10:03-0400 Body temperature 97.3 [degF] Yissel Milan [employer] [facility]; [facility] Work Phone: Comment on above: Method: Infrared 02-26-2022 10:03-0400 Body weight 138.8 kg Yissel Milan [facility]; [facility] Work Phone: 02-26-2022 10:03-0400 Diastolic blood pressure 78 mm[Hg] Yissel Milan [facility]; [facility] Work Phone: Comment on above: Patient Position: Sitting; Cuff Location : Left Arm; Cuff Size: Standard 02-26-2022 10:03-0400 Heart rate 89 /min Yissel Milan [facility]; [facility] Work Phone: Comment on above: Pattern: Regular 02-26-2022 10:03-0400 Respiratory rate 18 /min Yissel Milan [facility]; [facility] Work Phone: Comment on above: Pattern: Unlabored 02-26-2022 10:03-0400 SaO2% (BldA) [Mass fraction] 96 % Yissel Milan [facility]; [facility] Work Phone: Comment on above: Room air 02-26-2022 10:03-0400 Systolic blood pressure 132 mm[Hg] Yissel Milan [facility]; [facility] Work Phone: Comment on above: Patient Position: Sitting; Cuff Location : Left Arm; Cuff Size: Standard 03-17-2021 14:15-0400 Body height 180.34 cm Yissel Milan [facility]; [facility] Work Phone: 03-17-2021 14:15-0400 Body mass index (BMI) [Ratio] 40.73 kg/m2 Yissel Milan [facility]; [facility] Work Phone: 03-17-2021 14:15-0400 Body surface area Derived from formula 2.48 m2 Yissel Milan [facility]; [facility] Work Phone: 03-17-2021 14:15-0400 Body temperature 97.1 [degF] Yissel Milan [facility]; [facility] Work Phone: Comment on above: Method: Infrared 03-17-2021 14:15-0400 Body weight 132.45 kg Yissel Milan [facility] Comprehensive Internal Medicine; [facility] Work Phone: 03-17-2021 14:15-0400 Diastolic blood pressure 80 mm[Hg] Yissel Milan [facility]; [facility] Work Phone: Comment on above: Patient Position: Sitting; Cuff Location : Left Arm; Cuff Size: Standard 03-17-2021 14:15-0400 Heart rate 86 /min Yissel Milan [facility]; [facility] Work Phone: Comment on above: Pattern: Regular 03-17-2021 14:15-0400 Respiratory rate 18 /min Yissel Milan [facility]; [facility] Work Phone: Comment on above: Pattern: Unlabored 03-17-2021 14:15-0400 SaO2% (BldA) [Mass fraction] 93 % Yissel Milan [facility]; [facility] Work Phone: Comment on above: Room air 03-17-2021 14:15-0400 Systolic blood pressure 136 mm[Hg] Yissel Milan [facility]; [facility] Work Phone: Comment on above: Patient Position: Sitting; Cuff Location : Left Arm; Cuff Size: Standard 04-18-2020 15:12-0400 BMI (Body Mass Index) 40.17 kg/m2 Yissel Milan [facility] Work Phone: 04-18-2020 15:12-0400 Body Temperature 96.8 [degF] Yissel Milan CMA [facility] Work Phone: Comment on above: Method: Infrared 04-18-2020 15:12-0400 Body weight 130.64 kg Yissel Milan [facility] Internal Medicine Work Phone: 04-18-2020 15:12-0400 BP Diastolic 80 mm[Hg] Yissel Milan [facility] Internal Medicine Work Phone: Comment on above: Patient Position: Sitting; Cuff Location : Left Arm; Cuff Size: Standard 04-18-2020 15:12-0400 BP Systolic 126 mm[Hg] Yissel Milan [facility] Work Phone: Comment on above: Patient Position: Sitting; Cuff Location : Left Arm; Cuff Size: Standard 04-18-2020 15:120400 BSA (Body Surface Area) 2.46 m2 Yissel Milan [facility] Medicine Work Phone: 04-18-2020 15:12-0400 Height 180.34 cm Yissel Milan [facility] Internal Medicine Work Phone: 04-18-2020 15:12-0400 Pulse (Heart Rate) 88 /min Yissel Milan [facility] Medicine Work Phone: Comment on above: Pattern: Regular 04-18-2020 15:12-0400 Pulse Oximetry 97 % [facility] Work Phone: Comment on above: Room air 04-18-2020 15:12-0400 Respiratory Rate 16 /min Yissel Milan [facility] Medicine Work Phone: Comment on above: Pattern: Unlabored 04-18-2020 15:12-0400 SaO2% (BldA) [Mass fraction] 97 % Yissel Milan [facility] Internal Medicine; [facility] Work Phone: Comment on above: Room air 09-09-2019 11:21-0500 BMI (Body Mass Index) 40.17 kg/m2 Yissel Milan [facility] Work Phone: 09-09-2019 11:21-0500 Body Temperature 96.7 [degF] Yissel Milan CMA [facility] Work Phone: Comment on above: Method: Temporal 09-09-2019 11:21-0500 Body weight 130.64 kg Yissel Milan [facility] Internal Medicine Work Phone: 09-09-2019 11:21-0500 BP Diastolic 92 mm[Hg] Yissel Milan [facility] Work Phone: Comment on above: Patient Position: Sitting; Cuff Location : Left Arm; Cuff Size: Standard 09-09-2019 11:21-0500 BP Systolic 138 mm[Hg] Yissel Milan [facility] Work Phone: Comment on above: Patient Position: Sitting; Cuff Location : Left Arm; Cuff Size: Standard 09-09-2019 11:21-0500 BSA (Body Surface Area) 2.46 m2 Yissel Milan [facility] Internal Medicine Work Phone: 09-09-2019 11:21-0500 Height 180.34 cm Yissel Milan [facility] Work Phone: 09-09-2019 11:21-0500 Pulse (Heart Rate) 81 /min Yissel Milan [facility] Internal Medicine Work Phone: Comment on above: Pattern: Regular 09-09-2019 11:21-0500 Pulse Oximetry 97 % [facility]ll[facility] Work Phone: Comment on above: Room air 09-09-2019 11:21-0500 Respiratory Rate 16 /min Yissel Milan [facility] Internal Medicine Work Phone: Comment on above: Pattern: Unlabored 09-09-2019 11:21-0500 SaO2% (BldA) [Mass fraction] 97 % Yissel Milan [facility] Internal Medicine; [facility] Work Phone: Comment on above: Room air 04-01-2019 12:16-0400 BMI (Body Mass Index) 41 kg/m2 Yissel Milan [facility] Internal Medicine Work Phone: 04-01-2019 12:16-0400 Body Temperature 98.2 [degF] Yissel Milan [facility] Internal Medicine Work Phone: Comment on above: Method: Temporal 04-01-2019 12:16-0400 Body weight 133.36 kg Yissel Milan [facility] Internal Medicine Work Phone: 04-01-2019 12:16-0400 BP Diastolic 90 mm[Hg] Yissel Milan [facility] Internal Medicine Work Phone: Comment on above: Patient Position: Sitting; Cuff Location : Left Arm; Cuff Size: Standard 04-01-2019 12:16-0400 BP Systolic 140 mm[Hg] Yissel Milan [facility] Internal Medicine Work Phone: Comment on above: Patient Position: Sitting; Cuff Location : Left Arm; Cuff Size: Standard 04-01-2019 12:16-0400 BSA (Body Surface Area) 2.48 m2 Yissel Milan [facility] Internal Medicine Work Phone: 04-01-2019 12:16-0400 Height 180.34 cm Yissel Milan [facility] Internal Medicine Work Phone: 04-01-2019 12:16-0400 Pulse (Heart Rate) 77 /min Yissel Milan [facility] Internal Medicine Work Phone: Comment on above: Pattern: Regular 04-01-2019 12:16-0400 Pulse Oximetry 97 % [facility]git Stas [facility] Work Phone: Comment on above: Room air 04-01-2019 12:16-0400 Respiratory Rate 18 /min Yissel Milan [facility] Internal Medicine Work Phone: Comment on above: Pattern: Unlabored 04-01-2019 12:16-0400 SaO2% (BldA) [Mass fraction] 97 % Yissel Mialn [facility] Internal Medicine; [facility] Work Phone: Comment on above: Room air 03-12-2018 10:12-0400 BMI (Body Mass Index) 38.63 kg/m2 Mckenzie Curran RN [facility] Internal Medicine Work Phone: 03-12-2018 10:12-0400 Body [...] Mass Index) 39.33 kg/m2 Mckenzie Curran RN [facility] Internal Medicine Work Phone: Comment on above: /84 104sitting 117/97 119standin g 118/72 122 02-03-2018 10:01-0400 Body Temperature 102.9 [degF] Mckenzie Curran RN [facility] Work Phone: Comment on above: Method: Oral [id number] 104sitti ng 117/97 119standing 118/72 122 02-03-2018 10:01-0400 Body weight 127.92 kg Mckenzie Curran RN [facility] Work Phone: Comment on above: [id number]/84 104sitting 117/97 119standin g 118/72 122 02-03-2018 10:01-0400 BP Diastolic 82 mm[Hg] Mckenzie Curran RN [facility] Work Phone: Comment on above: Patient Position: Sitting; Cuff Location : Left Arm; Cuff Size: Standard [id number]/84 104sitti ng 117/97 119standing 118/72 122 02-03-2018 10:01-0400 BP Systolic 138 mm[Hg] Mckenzie Curran RN [facility] Work Phone: Comment on above: Patient Position: Sitting; Cuff Location : Left Arm; Cuff Size: Standard [id number]/84 104sitti ng 117/97 119standing 118/72 122 02-03-2018 10:01-0400 BSA (Body Surface Area) 2.44 m2 Mckenzie Curran RN [facility] Work Phone: Comment on above: [id number]/84 104sitting 117/97 119standin g 118/72 122 02-03-2018 10:01-0400 Height 180.34 cm Mckenzie Curran RN [facility] Work Phone: Comment on above: [id number]/84 104sitting 117/97 119standin g 118/72 122 02-03-2018 10:01-0400 Pulse (Heart Rate) 121 /min Mckenzie Curran RN [facility] Work Phone: Comment on above: Pattern: Regular [id number]/84 104sitti ng 117/97 119standing 118/72 122 02-03-2018 10:01-0400 Pulse Oximetry 96 % Birgit Mcclelland [facility] Work Phone: Comment on above: Room air /84 104sitti ng 117/97 119standing 118/72 122 02-03-2018 10:01-0400 Respiratory Rate 16 /min Mckenzie Curran RN [facility] Work Phone: Comment on above: Pattern: Unlabored /84 104sitti ng 117/97 119standing 118/72 122 02-03-2018 10:01-0400 SaO2% (BldA) [Mass fraction] 96 % Mckenzie Curran RN [facility]; [facility] Work Phone: Comment on above: Room air [id number] 104sitti ng 117/97 119standing 118/72 122 02-03-2018 10:01-0400 Weight 127.92 kg Birgit Mcclelland [facility] Work Phone: Comment on above: [id number]/84 104sitting 117/97 119standin g 118/72 122 03-22-2017 08:29-0400 BMI (Body Mass Index) 39.33 [facility] Work Phone: 03-22-2017 08:29-0400 Body [facility] 127.92 [facility] Work Phone: 03-22-2017 08:29-0400 BP Diastolic 78 mm[Hg] [facility] Work Phone: Comment on above: Patient Position: Sitting; Cuff Location : Left Arm; Cuff Size: Standard 03-22-2017 08:29-0400 BP Systolic 122 mm[Hg] [facility] Work Phone: Comment on above: Patient Position: Sitting; Cuff Location : Left Arm; Cuff Size: Standard 03-22-2017 08:29-0400 BSA (Body Surface Area) 2.44 m2 [facility] Work Phone: 03-22-2017 08:29-0400 Height 180.34 cm [facility] Internal Medicine Work Phone: 03-22-2017 08:29-0400 Pulse (Heart Rate) 72 /min Yue Mangenoveva [employer] [facility] Work Phone: Comment on above: Pattern: Regular 03-22-2017 08:29-0400 Pulse Oximetry 98 % Birgit Mcclelland [facility] Work Phone: Comment on above: Room air 03-22-2017 08:29-0400 Respiratory Rate 16 /min Yue Mangenoveva [facility] Work Phone: Comment on above: Pattern: Unlabored 03-22-2017 08:29-0400 SaO2% (BldA) [Mass fraction] 98 % Yue Erin [facility]; [facility] Work [...] 03-08-2017 09:50-0400 Weight 127.92 kg Birgit [facility]cclelland [facility] Work Phone: 12-25-2016 09:10-0400 BMI (Body Mass Index) 36.96 kg/m2 Kelin Aceves RN RN [facility] Work Phone: 12-25-2016 09:10-0400 Body Temperature 98.6 [degF] Kelin Aceves RN RN [facility] Work Phone: 12-25-2016 09:10-0400 BP Diastolic 77 mm[Hg] Kelin Aceves RN RN [facility] Work Phone: 12-25-2016 09:10-0400 BP Systolic 126 mm[Hg] Kelin Aceves RN RN [facility] Work Phone: 12-25-2016 09:10-0400 Pulse (Heart Rate) 82 /min Kelin Aceves RN RN [facility] Work Phone: 12-25-2016 09:10-0400 Pulse Oximetry 96 % Kelin Aceves RN RN [facility] Work Phone: 12-25-2016 09:10-0400 Weight 120.2 kg Kelin Aceves RN RN [facility] Work Phone: 11-02-2016 13:01-0400 BMI [...] 13:01-0400 Pulse Oximetry 97 % Birgit Mcclelland [facility] Work Phone: Comment on above: Room air 11-02-2016 13:01-0400 Respiratory Rate 18 /min Fabiana Momin RN [facility] Work Phone: Comment on above: Pattern: Unlabored 11-02-2016 13:01-0400 SaO2% (BldA) [Mass fraction] 97 % Fabiana Momin RN [facility]; [facility] Work Phone: Comment on above: Room air 11-02-2016 13:01-0400 Weight 121.68 kg Birgit Pulidoon [facility] Work Phone: 10-31-2016 08:15-0400 BMI (Body Mass Index) 37.66 kg/m2 Odalys carpenter Internal Medicine Work Phone: 10-31-2016 08:15-0400 Body weight 122.47 kg Odalys Caceres [facility] Work Phone: 10-31-2016 08:15-0400 BP Diastolic 78 mm[Hg] Odalys Caceres [facility] Work Phone: Comment on above: Patient Position: Sitting; Cuff Location : Left Arm; Cuff Size: Standard 10-31-2016 08:15-0400 BP Systolic 132 mm[Hg] Odalys Caceres [facility] Work Phone: Comment on above: Patient Position: Sitting; Cuff Location : Left Arm; Cuff Size: Standard 10-31-2016 08:15-0400 BSA (Body Surface Area) 2.4 m2 Odalys Caceres [facility] Work Phone: 10-31-2016 08:15-0400 Height 180.34 cm Odalys Caceres [facility] Work Phone: 10-31-2016 08:15-0400 Pulse (Heart Rate) 83 /min Odalys Caceres [facility] Work Phone: Comment on above: Pattern: Regular 10-31-2016 08:15-0400 Pulse Oximetry 97 % Birgit Mcclelland [facility] Work Phone: Comment on above: Room air 10-31-2016 08:15-0400 Respiratory Rate 18 /min Odalys Caceres [facility] Work Phone: Comment on above: Pattern: Unlabored 10-31-2016 08:15-0400 SaO2% (BldA) [Mass fraction] 97 % Odalys Caceres [facility]; [facility] Work Phone: Comment on above: Room air 10-31-2016 08:15-0400 Weight 122.47 kg Birgit Mcclelland [facility] Work Phone: 09-05-2016 09:53-0500 BMI (Body Mass Index) 38.29 kg/m2 Lyle Copeland [facility] Work Phone: 09-05-2016 09:53-0500 Body Temperature 98.6 [degF] Lyle Copeland [facility] Work Phone: 09-05-2016 09:53-0500 BP Diastolic 82 mm[Hg] Lyle Copeland [facility] Work Phone: 09-05-2016 09:53-0500 BP Systolic 152 mm[Hg] Lyle Copeland [facility] Work Phone: 09-05-2016 09:53-0500 BSA (Body Surface Area) 2.42 m2 [facility] Work Phone: 09-05-2016 09:53-0500 Pulse (Heart Rate) 94 /[facility] Work Phone: 09-05-2016 09:53-0500 Pulse Oximetry 99 % [facility] Work Phone: 09-05-2016 09:53-0500 Respiratory Rate 18 /min [facility] Work Phone: 09-05-2016 09:53-0500 Weight 124.56 kg [facility] Work Phone: 04-10-2016 13:32-0400 BMI (Body Mass Index) 38.37 kg/m2 Eboni Jansen LPN [facility] Internal Medicine Work Phone: 04-10-2016 13:32-0400 Body Temperature 97.2 [degF] Eboni Tanyarb CECILY [facility] Work Phone: 04-10-2016 13:32-0400 Body weight 124.8 kg Eboni Slarb EXTENSION SERVICE SPECIALIST IN CHARGE [facility] Work Phone: 04-10-2016 13:32-0400 BP Diastolic 82 mm[Hg] Eboni Slarb EXTENSION SERVICE SPECIALIST IN CHARGE [facility] Work Phone: Comment on above: Patient Position: Sitting; Cuff Location : Left Arm; Cuff Size: Standard 04-10-2016 13:32-0400 BP Systolic 124 mm[Hg] Eboni Slarb EXTENSION SERVICE SPECIALIST IN CHARGE [facility] Work Phone: Comment on above: Patient Position: Sitting; Cuff Location : Left Arm; Cuff Size: Standard 04-10-2016 13:32-0400 BSA (Body Surface Area) 2.42 m2 Eboni Jansen EXTENSION SERVICE SPECIALIST IN CHARGE [facility] Work Phone: 04-10-2016 13:32-0400 Height 180.34 cm Eboni Tanyarb EXTENSION SERVICE SPECIALIST IN CHARGE [facility] Work Phone: 04-10-2016 13:32-0400 Pulse (Heart Rate) 90 /min Eboni Jansen EXTENSION SERVICE SPECIALIST IN CHARGE Comprehens[facility] e Internal Medicine Work Phone: Comment on above: Pattern: Regular 04-10-2016 13:32-0400 Pulse Oximetry 98 % Birgit Mcclelland [facility] Work Phone: Comment on above: Room air 04-10-2016 13:32-0400 Respiratory Rate 16 /min Eboni Tanyarb EXTENSION SERVICE SPECIALIST IN CHARGE [facility] Work Phone: Comment on above: Pattern: Unlabored 04-10-2016 13:32-0400 SaO2% (BldA) [Mass fraction] 98 % Eboni Tanyarb EXTENSION SERVICE SPECIALIST IN CHARGE [facility]; [facility] Work Phone: Comment on above: Room air 04-10-2016 13:32-0400 Weight 124.8 kg Birgit Mcclelland [facility] Work Phone: 03-07-2016 11:02-0400 Height 180.34 cm Lyle Olivierpp [facility] Work Phone: 03-04-2015 08:20-0400 BMI (Body Mass Index) 38.01 kg/m2 Eboni Martínezrb EXTENSION SERVICE SPECIALIST IN CHARGE Comprehen [facility] Internal Medicine Work Phone: 03-04-2015 08:20-0400 Body Temperature 97.8 [degF] Eboni Slarb EXTENSION SERVICE SPECIALIST IN CHARGE [facility] Work Phone: 03-04-2015 08:20-0400 Body weight 123.61 kg Eboni Slarb EXTENSION SERVICE SPECIALIST IN CHARGE [facility] Work Phone: 03-04-2015 08:20-0400 BP Diastolic 84 mm[Hg] Eboni Slarb EXTENSION SERVICE SPECIALIST IN CHARGE [facility] Work Phone: Comment on [...] Mass Index) 38.27 kg/m2 Birgit Mcclelland Comprehens [facility] Internal Medicine Work Phone: 10-29-2014 10:36-0400 Body Temperature 98.4 [degF] Brigit Mcclelland [facility] Work Phone: Comment on above: Method: Oral 10-29-2014 10:36-0400 Body weight 124.46 kg Birgit Mcclelland [facility] Work Phone: 10-29-2014 10:36-0400 BP Diastolic 80 mm[Hg] Birgit Mcclelland [facility] Work Phone: Comment on above: Patient Position: Sitting; Cuff Location : Left Arm; Cuff Size: Standard 10-29-2014 10:36-0400 BP Systolic 120 mm[Hg] Birgit Mcclelland [facility] Work Phone: Comment on above: Patient Position: Sitting; Cuff Location : Left Arm; Cuff Size: Standard 10-29-2014 10:36-0400 BSA (Body Surface Area) 2.41 m2 Birgit Mcclelland [facility] Work Phone: 10-29-2014 10:36-0400 Height 180.34 cm Birgit Mcclelland [facility] Work Phone: 10-29-2014 10:36-0400 Pulse (Heart Rate) 88 /min Birgit Mcclelland [facility] Work Phone: Comment on above: Pattern: Regular 10-29-2014 10:36-0400 Pulse Oximetry 98 % Birgit Mcclelland [facility] Work Phone: Comment on above: Room air 10-29-2014 10:36-0400 Respiratory Rate 16 /min Birgit Mcclelland [facility] Work Phone: 10-29-2014 10:36-0400 SaO2% (BldA) [Mass fraction] 98 % Birgit Mcclelland DO Work Phone: [facility]; [facility] Work Phone: Comment on above: Room air 10-29-2014 10:36-0400 Weight 124.46 kg Birgit Mcclelland [facility] Work Phone: 09-29-2014 09:00-0500 BMI (Body Mass Index) 38.27 kg/m2 Mckenzie Curran RN [facility] Internal Medicine Work Phone: 09-29-2014 09:00-0500 Body [...] 04-09-2013 07:59-0400 Weight 120.8 kg Birgit Mcclelland [facility] Work Phone: 07-25-2012 08:25-0500 BMI (Body Mass Index) 36.4 kg/m2 Birgit Mcclelland [facility] Internal Medicine Work Phone: 07-25-2012 08:25-0500 Body Temperature 98.4 [degF] Birgit Mcclelland [facility] Work Phone: Comment on above: Method: Oral 07-25-2012 08:25-0500 Body weight 118.39 kg Birgit Mcclelland [facility] Work Phone: 07-25-2012 08:25-0500 BP Diastolic 78 mm[Hg] Birgit Mcclelland [facility] Work Phone: Comment on above: [...] Mass Index) 36.4 kg/m2 Elizabeth Gunderson RN [facility] Internal Medicine Work Phone: 04-26-2011 11:44-0400 Body [...] 08:45-0400 Pulse (Heart Rate) 72 /min Fabiana Momni RN [facility] Work Phone: Comment [...] Start: 03-31-2025 End: 03-31-2025 ambulatory Birgit Mcclelland Facility:[facility] Start: 11-02-2024 End: 11-02-[address] Birgit Mcclelland DO Work Phone: [facility] Work Phone: Start: 11-02-2024 End: 11-02-[address] Birgit Mcclelland DO -Laboratory Work Phone: Start: 11-02-2024 End: 11-02-2024 ambulatory Birgit Mcclelland Facility:[facility] Start: 07-13-2024 End: 07-13-2024 ambulatory Birgit Mcclelland Facility:[facility] Start: 05-15-2024 ambulatory Health Risk Assessment Facility:[facility] Start: 09-25-2023 End: 09-25-2023 ambulatory [facility] Work Phone: Start: 09-25-2023 End: 09-25-2023 Discharged Recurring [facility]-Physical Therapy Work Phone: Start: 08-23-2023 End: 08-23-2023 ambulatory [facility] Work Phone: Start: 08-23-2023 End: 08-23-2023 Patient encounter procedure [facility]-Radiology, [facility] Work Phone: Start: 08-16-2023 End: 08-16-2023 ambulatory [facility] Work Phone: Start: 08-16-2023 End: 08-16-2023 Patient encounter procedure [facility]-Laboratory Work Phone: Start: 06-21-2023 End: 06-21-2023 ambulatory [facility] Work Phone: Start: 06-21-2023 End: 06-21-2023 Patient encounter procedure [facility]-Laboratory Work Phone: Start: 05-22-2023 End: 05-22-2023 Patient encounter status Brendon Landry CECILY [facility]; [facility] Work Phone: Start: 05-22-2023 End: 05-22-2023 Periodic preventive med est patient 40-64yrs Birgit Mcclelland DO Work Phone: [facility] Start: 05-14-2023 Registered Referred [facility] Start: 04-20-2022 End: 04-20-2022 Patient encounter status Yissel Milan CMA [facility]; [facility] Work Phone: Start: 04-20-2022 End: 04-20-2022 Periodic preventive med est patient 40-64yrs Birgit Mcclelland DO Work Phone: [facility] Start: 04-05-2022 End: 04-05-[address] Birgit Mcclelland Work Phone: [facility] Work Phone: Start: 04-05-2022 End: 04-05-[address] Birgit Mcclelland Work Phone: [facility]-Radiology, [facility] Start: 03-21-2022 End: 03-21-2022 Admission to same day surgery center Dr. iBrgit Mcclelland Work Phone: [facility]-Surgical Day Care Start: 03-02-2022 End: 03-02-2022 Patient encounter procedure [facility]-Cat Scan, [facility] Start: 03-01-2022 Non-patient / Non-visit Dr. Heladio Mcclelland Work Phone: [facility] Start: 02-26-2022 End: 02-26-2022 Office outpatient new [...] End: 04-11-2020 Lab Order Birgit Stas [facility] Start: 09-09-2019 End: 09-09-2019 Lab Order Birgit Stas [facility] Start: 09-09-2019 End: 09-09-2019 Office outpatient visit 15 minutes Birgit Mcclelland [facility] Start: 04-01-2019 End: 04-01-2019 Phone Encounter Birgit Stas [facility] Start: 04-01-2019 End: 04-01-2019 Patient encounter procedure Birgit Stas DO Work Phone: [facility] Work Phone: Start: 04-01-2019 End: 04-01-2019 Periodic preventive med est patient 40-64yrs Birgit Mcclelland [facility] Start: 11-28-2018 End: 12-02-2018 Ophthalmic examination and evaluation Birgit Mcclelland DO Work Phone: [facility] Start: 11-28-2018 End: 12-02-2018 Phone Encounter Birgit Mcclelland [facility] Start: 11-28-2018 [facility] Start: 03-12-2018 End: 03-12-2018 Patient encounter status Birgit Mcclelland DO Work Phone: [facility]; [facility] Work Phone: Start: 03-12-2018 End: 03-12-2018 Periodic preventive med est patient 40-64yrs Birgit Mcclelland [facility] Start: 02-28-2018 Patient encounter [facility] Start: 02-26-2018 End: 02-26-2018 Office outpatient visit 25 minutes Birgit Mcclelland [facility] Start: 02-11-2018 End: 02-11-2018 Lab Order Birgit Mcclelland [facility] Start: 02-07-2018 End: 02-07-2018 Annotation/Addendum Birgit Mcclelland [facility] Start: 02-03-2018 End: 02-03-2018 Phone Encounter Birgit Mcclelland [facility] Start: 02-03-2018 End: 02-03-2018 Office [...] End: 03-16-2015 Phone Encounter Birgit Mcclelland [facility] Start: 03-04-2015 End: 03-04-2015 Annotation/Addendum Birgitcatrachita Mcclelland [facility] Start: 03-04-2015 End: 03-04-2015 Office [...] End: 04-09-2013 Patient encounter Birgit Mcclelland [facility] Start: 04-09-2013 End: 04-09-2013 Patient encounter status Birgit Mcclelland DO Work Phone: [facility] Start: 07-25-2012 End: 07-25-2012 Office outpatient visit 25 minutes Birgitcatrachita Mcclelland [facility] Start: 03-06-2012 End: 03-07-2012 Patient encounter Birgit Mcclelland [facility] Start: 03-06-2012 End: 03-07-2012 Patient encounter status Birgit Mcclelland DO Work Phone: [facility] Start: 04-26-2011 End: 04-26-2011 Patient encounter Birgitcatrachita Mcclelland [facility] Start: 12-23-2008 End: 12-23-2008 Historical Summary Birgitkeiko Mcclelland [facility] Start: 12-17-2008 End: 12-17-2008 Office outpatient new 20 minutes Birgit Mcclelland [facility] Ophthalmic examinati on and evaluation Yissel Gravius [facility]; [facility] Work Phone: Ophthalmic examinati on and evaluation Yissel Gravius STRUCTURAL STEEL PAINTER [facility]; [facility] Work Phone: Ophthalmic examinati on and evaluation Yissel Gravius STRUCTURAL STEEL PAINTER [facility]; [facility] Work Phone: Ophthalmic examinati on and evaluation Yissel Gravius STRUCTURAL STEEL PAINTER [facility]; [facility] Work Phone: Ophthalmic examinati on and evaluation Brendon [place] EXTENSION SERVICE SPECIALIST IN CHARGE [facility]; [facility] Work Phone: Patient encounter procedure Yissel Gravius [facility]; [facility] Work Phone: Patient encounter procedure Yissel Ibrahimaius [facility]; [facility] Work Phone: Patient encounter procedure Yissel Alexandraius [facility]; [facility] Work Phone: Patient encounter procedure Brendon [place] EXTENSION SERVICE SPECIALIST IN CHARGE [facility]; [facility] Work Phone: Patient encounter status Fabiana Momin RN [facility]; [facility] Work Phone: Patient encounter status Fabiana Momin RN [facility]; [facility] Work Phone: Patient encounter status Yissel Milan [facility]; [facility] Work Phone: Patient encounter status Yissel Milan [facility]; [facility] Work Phone: Preoperative state Birgit Pulido on DO Work Phone: [facility]; [facility] Work Phone: Preoperative state Yissel Milan [facility] prehensive Internal Medicine; [facility] Work Phone: Preoperative state Brendon [place] EXTENSION SERVICE SPECIALIST IN CHARGE [facility] ehensive Internal Medicine; [facility] Work Phone: Procedures Date Procedure Procedure Detail Performing Clinician Start: 03-31-2025 Serum inorganic phosphate measurement Dr. Birgit Mcclelland DO Work Phone: Start: 08-23-2023 Plain X-ray of shoulder Start: 04-05-2022 End: 04-06-2022 Knee 4 or More Views Procedure Note: See Note; NOTES: [facility] Imaging Services [address] [place] [address] Knee 4 or More Views MR#: [id number] Acct: [id number] Name: SHERMAN CORONEL Rep #: [id number] : 1965 M 56 From: Shirin Portillo MD PCP: Dr. Birgit Mcclelland DO Status: REG CLI Study: Knee 4 or More Views Date of Exam: 04/05/22 Exam# [id number] Ordering Dr: Bhavin Barger PA-C EXAM: XR RIGHT KNEE COMPLETE, 4 OR MORE VIEWS CLINICAL INDICATION: AFTERCARE TECHNIQUE: Four or more views of the right knee. This report was created using [employer] report generation technology. COMPARISON: None. FINDINGS: BONES/JOINTS: [...] CC: SONYA Barger; Dr. Birgit Mcclelland DO Delivery Mgr: Signed Birgit Mcclelland DO Work Phone: Start: 04-05-2022 Radiologic examination of knee Dr. Birgit Mcclelland Work Phone: Start: 03-21-2022 End: 03-21-2022 Knee 1 or 2 Views Procedure Note: See Note; NOTES: [facility] Imaging Services [address] [place] [address] Knee 1 or 2 Views MR#: [id number] Acct: [id number] Name: SHERMAN CORONEL Rep #: [id number] : 1965 M 56 From: Owen Couch MD PCP: Dr. Birgit Mcclelland DO Status: [facility] Study: Knee 1 or 2 Views Date of Exam: 03/21/22 Exam# [id number] Ordering Dr: Nikolas Maher MD INDICATION: tka [...] 11:11 EDT Reading Location ID and State: [facility] / [place] Tel , Service support , CC: Dr. Birgit Mcclelland DO; Dr. Nikolas Maher MD Delivery Mgr: Signed Birgit Mcclelland DO Work Phone: Start: 03-21-2022 Radiologic examination of knee Dr. Birgit Mcclelland Work Phone: Start: 03-21-[address] Birgit Mcclelland Work Phone: Start: 03-21-2022 End: 03-21-2022 Operative Report Procedure Note: See Note; NOTES: [facility] Medical Records Department [address] [place] [address] Operative Report 03/21/22 0715 MR#: [id number] Acct: [id number] Name: SHERMAN CORONEL Rep #: [id number] : 1965 56 From: Nikolas Maher MD PCP: Dr. Birgit Mcclelland, DO Status:[facility] Location: [place] [address] Report of Operation Date of Procedure: 03/21/22 Pre-Operative Diagnosis: Right knee primary osteoarthritis Post-Operative Diagnosis: Right knee primary osteoarthritis Surgery/Procedure Performed:: Right medial unicompartmental knee replacement Description of Surgical Findings:: Patellofemoral and lateral compartments were appropriate with minimal wear. Stable knee. Surgeon: Nikolas Maher tripe cooker: Bhavin Barger Type of Anesthesia: General Anesthesiologist: [...] protected during all bony cuts by my gallery assistant. Once the final components were placed [...] then awakened from anesthesia, transferred to the [facility] and transferred to the PACU [...] the course of the procedure the physician boating safety officer (PE) played a vital role. Their intimate [...] Hose VTE Pharm Prophylaxis ordered?: Yes 03/21/22 05 <Electronically signed by Nikolas Maher MD> Cosigner Signature (if applicable): CC: Dr. Birgit Mcclelland DO; Dr. Nikolas Maher MD Signed Birgit Mcclelland DO Work Phone: Start: 03-05-2022 End: 03-21-2022 History and Physical Exam Comments: See Note; NOTES: [facility] Medical Records Department [address] [place] [address] History Physical Exam 03/05/2244 MR#: [id number] Acct: [id number] Name: SHERMAN CORONEL Rep #: [id number] : 1965 56 From: Bhavin ANN PA-C PCP: Dr. Birgit Mcclelland, DO Status:PRE [facility] Location: [facility] History and Physical History and Physical [facility] [employer] Patient Name: Sherman Coronel : 1965 From:??? BHAVIN BARGER PA-C??? DATE OF SURGERY:??? 03/21/2022 SCHEDULED PROCEDURE:??? right partial knee replacement versus total knee arthroplasty HISTORY OF PRESENT ILLNESS: This is a 56-year-old male who has been having ongoing pain since 2020 with his right knee.??? 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 Personal [...] Lower without Contra Comments: See Note; NOTES: [facility] Imaging Services [address] [place] [address] Extremity Lower without Contra MR#: [id number] Acct: [id number] Name: SHERMAN CORONEL Rep #: [id number] : 1965 M 56 From: Vince Valenzuela PCP: Dr. Birgit Mcclelland DO Status: REG CLI Study: Extremity Lower without Contra Date of Exam: 0 03/02/22 Exam# [id number] Ordering Dr: Nikolas Maher MD EXAM: CT [...] reconstruction technique. This report was created using [employer] report generation technology. RADIATION DOSE: CTDIvol = [...] Birgit Mcclelland DO; Dr. Nikolas Maher MD Delivery Mgr: Signed Birgit Mcclelland DO Work Phone: Start: 03-02-2022 MRI of lower extremity Start: 03-01-2022 End: 03-02-2022 12 Lead EKG Comments: See Note; NOTES: [facility] Cardiovascular Services [address] [place] [address] 12 Lead EKG 03/01/22 1206 MR#: [id number] Acct: [id number] Name: SHERMAN CORONEL Rep #: [id number] : 1965 56 From: Chadd Barron MD Attending Dr: Dr. Nikolas Maher MD Status: PRE [facility] Ordering Dr: Nikolas Maher MD Date: 03/01/22 Location: [facility] Sex: M C Admitted: Test Reason : PREOP Blood Pressure : / mmHG Vent. Rate : 080 BPM Atrial Rate : 080 BPM P-R Int : 156 ms QRS Dur : 090 ms QT Int : 340 ms P-R-T Axes : 069 066 049 degrees QTc Int : 392 ms Normal sinus rhythm Normal ECG Confirmed by TATUM MORRISON, ALMA ([id number]), make up editor LÓPEZ HILTON ([id number]) on 03/02/2022 10:29:45 AM Referred By: Nikolas Maher Confirmed By:BERNADINE BARRON MD 03/02/22 1029 Date Chadd Barron MD CC: Dr. Birgit Mcclelland DO; Dr. Nikolas Maher MD Signed Birgit Mcclelland DO Work Phone: Start: 03-25-2021 End: 03-25-2021 Emergency Department Summary Comments: See Note; NOTES: [facility] Medical Records Department [address] [place] [address] Emergency Department Summary 03/25/21 MR#: [id number] Acct: [id number] Name: SHERMAN CORONEL Rep #: [id number] : 1965 55 From: Bhupendra Myers MD [...] DAILY RF: 0 Primary Care Provider: Birgit cMclelland Referrals: Birgit Mcclelland DO [Primary Care Provider] [...] your Primary Care Provider. Call [facility] ([phone]) or report to the closest Emergency Room. Call 911 if necessary. 03/25/21 9612 <Electronically signed by Bhupendra Myers MD> Cosigner Signature (if applicable): CC: Dr. Birgit Mcclelland DO Signed Birgit Mcclelland DO Work Phone: Start: 01-02-2021 End: 01-03-2021 Knee 4 or More Views Comments: See Note; NOTES: [facility] Imaging Services [address] [place] [address] Knee 4 or More Views MR#: [id number] Acct: [id number] Name: SHERMAN CORONEL Rep #: [id number] : 1965 M 55 From: Taj Haddad MD PCP: Dr. Birgit Mcclelland DO Status: REG CLI Study: Knee 4 or More Views Date of Exam: 01/02/21 Exam# [id number] Ordering Dr: Bhavin Barger PA-C STUDY: X-RAY [...] CC: SONYA Barger; Dr. Birgit Mcclelland DO Delivery Mgr: Signed Birgit Mcclelland DO Work Phone: Start: 03-18-2018 End: 03-18-2018 12 lead ECG Comments: See Note; NOTES: [facility] Cardiovascular Services [address] [place] [address] 12 Lead EKG 03/14/18 1617 MR#: [id number] Acct: [id number] Name: SHERMAN CORONEL Rep #: [id number] : 1965 52 From: Colby Lowery MD [...] ECG Confirmed by JACLYN MORRISON, COLBY ([id number]), make up editor FAISAL SWANSON ([id number]) on 03/18/2018 2:15:59 PM Referred By: Dick Moulton Confirmed By:COLBY LOWERY MD 03/18/18 1416 Date Colby Lowery MD CC: Yehuda Jones DO; Birgit Petersen Start: 03-17-2018 End: 03-17-2018 Emergency Department Summary Comments: See Note; NOTES: [facility] Medical Records Department [address] [place] [address] Emergency Department Summary 03/14/18 1618 MR#: [id number] Acct: [id number] Name: SHERMAN CORONEL Rep #: [id number] : 1965 52 From: Yehuda Jones DO [...] pop. The patient was talking to his corporate travel manager today and noticed some facial droop [...] unknown origin This note was generated with [employer] software. It may contain incorrect words, spelling, and punctuation that were not noted in review of the chart prior to signing ED Disposition - Plan for ED Patient: Disposition: Home or Assisted Living Chief Complaint: Neuro S/Sx Instructions: ED Naselle Palsy, ED Fever Unconf Cause Prescriptions: Prednisone [...] your Primary Care Provider. Call [facility] ([phone]) or report to the closest Emergency Room. Call 911 if necessary. 03/17/18 0025 <Electronically signed by Yehuda Jones DO> Date Yehuda Jones DO Cosigner Signature (If Indicated): Date CC: Birgit Poole Start: 03-14-2018 End: 03-14-2018 Echocardiogram Complete Comments: See Note; NOTES: [facility] Cardiovascular Services [address] [place] [address] Echo Complete W/ Contrast 03/14/18 1356 MR#: [id number] Acct: [id number] Name: SHERMAN CORONEL Rep #: [id number] : 1965 52 From: Colby Lowery MD Attending Dr: Dick Moulton MD Status: REG CLI Ordering Dr: Dick Moulton MD Date: 03/14/18 Location: [facility] Sex: M C Admitted: Reason For Study: [...] Roof, Miriam, RDCS, RVT 03/14/181740 Date Colby Lowery MD CC: Birgit Mcclelland DO; Dick Moulton MD Date Dictated: 03/14/18 1356 Date Transcribed: 03/14/181740 Delivery Mgr: Signed Dick Moulton Work Phone: Start: 03-14-2018 End: 03-14-2018 Chest 1 View (Portable) Comments: See Note; NOTES: [facility] Imaging Services [address] [place] [address] Chest 1 View (Portable) MR#: [id number] Acct: [id number] Name: SHERMAN CORONEL Rep #: [id number] : 1965 M 52 From: Sean Snider MD PCP: Birgit Mcclelland DO Status: PRE ER Study: Chest 1 View (Portable) Date of Exam: 03/14/18 Exam# [id number] Ordering Dr: Yehuda Jones DO STUDY: X-RAY [...] CC: Yehuda Jones DO; Birgit Mcclelland DO Delivery Mgr: Signed Birgit Mcclelland Start: 03-14-2018 End: 03-14-2018 Brain/Head without Contrast Comments: See Note; NOTES: [facility] Imaging Services [address] [place] [address] Brain/Head without Contrast MR#: [id number] Acct: [id number] Name: SHERMAN CORONEL Rep #: [id number] : 1965 M 52 From: Sean Snider MD PCP: Birgit Mcclelland DO Status: PRE ER Study: Brain/Head without Contrast Date of Exam: 03/14/18 Exam# [id number] Ordering Dr: Yehuda Jones DO STUDY: CT [...] CC: Yehuda Jones DO; Birgit Mcclelland DO Delivery Mgr: Signed Birgit Mcclelland Start: 02-04-2018 End: 02-04-2018 Emergency Department Summary Comments: See Note; NOTES: [facility] Medical Records Department [address] [place] [address] Emergency Department Summary 02/04/18 1610 MR#: [id number] Acct: [id number] Name: SHERMAN CORONEL Rep #: [id number] : 1965 52 From: Virgil Valle MD [...] 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 He states he has not cared for any patients with diarrhea or C. difficile. He was seen yesterday by Dick Jung at [facility] and had blood tests ordered as well [...] on monitor This note was generated with [employer] dictation software. It may contain incorrect words, [...] your Primary Care Provider. Call [facility] ([phone]) or report to the closest Emergency Room. Call 911 if necessary. 02/04/18 1809 <Electronically signed by Virgil Valle MD> Date Virgil Valle MD Cosigner Signature (If Indicated): Date CC: Birgit Velascocatrachita Pulidoon Start: 02-03-2018 End: 02-03-2018 Chest PA and Lateral Comments: See Note; NOTES: [facility] Imaging Services [address] [place] [address] Chest PA and Lateral MR#: [id number] Acct: [id number] Name: SHERMAN CORONEL Rep #: [id number] : 1965 M 52 From: Parag Ramirez MD PCP: Birgit Mcclelland DO Status: REG CLI Study: Chest PA and Lateral Date of Exam: 02/03/18 Exam# [id number] Ordering Dr: Fabiana Salinas STUDY: X-RAY CHEST [...] , CC: RO Salinas; Birgit Mcclelland DO Delivery Mgr: Signed Fabiana Salinas Start: 02-12-2017 End: 02-12-2017 Operative Report Comments: See Note; NOTES: [facility] Medical Records Department [address] [place] [address] Operative Report 02/12/17 0855 MR#: [id number] Acct: [id number] Name: SHERMAN CORONEL Rep #: [id number] : 1965 51 From: Dino Alvarenga MD PCP: Birgit Mcclelland DO Status: REG CLI Y Location: [place] [address] Problem List (1) Screen for colon cancer [...] Emergency Department Summary Comments: See Note; NOTES: [facility] Medical Records Department [address] [place] [address] Emergency Department Summary MR#: [id number] Acct: [id number] Name: SHERMAN CORONEL Rep #: [id number] : 1965 50 From: Vince Tabares MD PCP: Birgit Mcclelland DO Status: [facility] ER DATE OF SERVICE: 07/07/2016 CHIEF COMPLAINT: [...] Discharged. Vince Tabares MD T: NTS JOB: [id number] 07/13/16 1531 <Electronically signed by Vince Tabares MD> Date Vince Tabares MD Cosigner Signature (If Indicated): Date CC: Birgit Mcclelland DO Date Dictated: 07/08/16126 Date Transcribed: 07/08/16126 Delivery Mgr: Signed Birgit Mcclelland Start: 07-12-2016 End: 07-12-2016 Operative Report Comments: See Note; NOTES: [facility] Medical Records Department [address] [place] [address] Operative Report MR#: [id number] Acct: [id number] Name: SHERMAN CORONEL Rep #: [id number] : 1965 50 From: Yehuda Tang MD PCP: Birgit Mcclelland DO Status: [facility] DATE OF SERVICE: 07/10/2016 DATE OF SURGERY: [...] fascia and the umbilical port with a hchxeh-ad-lakrp stitch of 0 Vicryl. Skin incisions were closed with subcuticular stitches of 4-0 Monocryl. Steri-Strips were applied. Sterile dressings were applied and the patient tolerated the procedure well. Yehuda Tang MD T: NTS JOB: [id number] 07/12/16 1125 <Electronically signed by Yehuda Tang MD> Date Yehuda Tang MD Cosigner Signature (If Indicated): Date CC: Yehuda Tang MD; Birgit Mcclelland DO Date Dictated: 07/10/161644 Date Transcribed: 07/10/161644 Delivery Mgr: Signed Birgit Mcclelland Start: 07-10-2016 End: 07-10-2016 Discharge Instruction Comments: See Note; NOTES: [facility] Medical Records Department [address] [place] [address] Instructions for Home/Discharge Instructions 07/10/16 1406 MR#: [id number] Acct: [id number] Name: SHERMAN CORONEL Rep #: [id number] : 1965 50 From: Yehuda Tang MD PCP: Birgit Mcclelland DO Status: REG [facility] Discharge Diet: Light diet - advance as [...] Up With: Yehuda Tang - Please call [phone] to schedule an appointment. When: 7 days after your surgery. 07/10/16 1407 <Electronically signed by Yehuda Tang MD> Date Yehuda Tang MD CC: Birgit Poole Start: 07-09-2016 End: 07-09-2016 12 lead ECG Comments: See Note; NOTES: [facility] Cardiovascular Services [address] [place] [address] 12 Lead EKG 07/07/16 2247 MR#: [id number] Acct: [id number] Name: SHERMAN CORONEL Rep #: [id number] : 1965 50 From: Zeyad Cee MD [...] ECG Confirmed by ZEYAD CEE MD ([id number]), make up editor FAISAL SWANSON ([id number]) on 07/09/2016 3:34:49 PM Referred By: YUMIKO Confirmed By:ZEYAD CEE MD 07/09/16 9474 Date Zeyad Cee MD CC: Birgit Mcclelland DO Date Dictated: 07/07/162246 Date Transcribed: 07/07/162246 Delivery Mgr: Signed Birgit Mcclelland Start: 07-08-2016 End: 07-08-2016 Discharge Instruction Comments: See Note; NOTES: [facility] Medical Records Department [address] [place] [address] Discharge Instruction 07/08/16 0124 MR#: [id number] Acct: [id number] Name: SHERMAN CORONEL Rep #: [id number] : 1965 50 From: Vince Tabares MD [...] your Primary Care Provider. Call [facility] ([phone]) or report to the closest Emergency Room. Call 911 if necessary. 07/08/16 0150 <Electronically signed by Vince Tabares MD> Date Vince Tabares MD Cosigner Signature (If Indicated): Date CC: Birgit Poole Start: 07-07-2016 End: 07-08-2016 Gallbladder Comments: See Note; NOTES: [facility] Imaging Services [address] [place] [address] Gianluca 4d Gallbladder MR#: [id number] Acct: [id number] Name: SHERMAN CORONEL Rep #: [id number] : 1965 M 50 From: Kiran Barraza MD PCP: Birgit Mcclelland DO Status: REG ER Study: Gallbladder Date of Exam: 07/07/16 Exam# [id number] Ordering Dr: Vince Tabares MD STUDY: ABDOMINAL [...] MD at 1:09 EST , Service support [phone], CC: Birgit Mcclelland DO; Vince Tabares MD Delivery Mgr: Signed Birgit Mcclelland Start: 03-07-2016 End: 03-07-2016 Follow Up Appt Other Zeyad Cee MD Start: 03-02-2016 End: 03-02-2016 Echocardiogram Complete Comments: See Note; NOTES: [facility] Cardiovascular Services [address] [place] [address] Echo Complete W/ Contrast 03/02/16 0957 MR#: [id number] Acct: [id number] Name: SHERMAN CORONEL Rep #: [id number] : 1965 50 From: Zeyad Cee MD Attending Dr: Zeyad Cee MD Status: REG CLI Ordering Dr: Zeyad Cee MD Date: 03/02/16 Location: [facility] Sex: M C Admitted: Reason For Study: [...] Dictated: 03/02/16 0957 Date Transcribed: 03/02/16 114 Delivery Mgr: Signed Birgit Mcclelland Start: 02-15-2016 End: 03-02-2016 Echocardiography Zeyad Cee MD Start: 02-12-2016 End: 02-12-2016 Chest 1 View (Portable) Comments: See Note; NOTES: [facility] Imaging Services [address] [place] [address] Verdana 4d Chest 1 View (Portable) MR#: [id number] Acct: [id number] Name: SHERMAN CORONEL Rep #: [id number] : 1965 M 50 From: Kiran Barraza MD PCP: Birgit Mcclelland DO Status: REG ER Study: Chest 1 View (Portable) Date of Exam: 02/12/16 Exam# [id number] Ordering Dr: Virgil Valle MD STUDY: X-RAY [...] MD at 6:44 EDT , Service support [phone], RAD/Chest 1 View (Portable) IMPRESSION: No evidence for acute cardiopulmonary pathology. Electronically Signed: Kiran Barraza MD at 6:44 EDT , Service support [phone], CC: Birgit Mcclelland DO; Virgil Valle MD Delivery Mgr: Signed Birgit Mcclelland Start: 09-29-2014 End: 09-29-2014 Ankle min 3 Views Comments: See Note; NOTES: [facility] Imaging Services [address] [place] [address] Radiology Report MR#: [id number] Acct: [id number] Name: SHERMAN CORONEL Rep #: [id number] : 1965 M 48 From: Darrin Jauregui MD PCP: Birgit Mcclelland DO Status: REG CLI Study: Ankle min 3 Views Date of Exam: 09/29/14 Exam# [id number] Ordering Dr: Trini Tena STUDY: X-RAY - [...] MD at 17:12 EST , Service support [phone], CC: Trini Tena; Birgit Mcclelland DO Delivery Mgr: Signed Trini Tena Work Phone: Start: 07-08-2013 PSA screening Birgit Mcclelland Comment on above: This test was performed using the TPSA a ssay method for theDimension chemistry system. Values obtained with differentassay methods cannot be used interchangably.When changing PSA assays in the course of monitoring apatient, additional sequential testing should be carriedout to confirm baseline values. Arthroscopic knee operation Yissel Gravius STRUCTURAL STEEL PAINTER Comment on above: partial - dr. maher Arthroscopic knee operation Brendon [place] EXTENSION SERVICE SPECIALIST IN CHARGE Comment on above: partial - dr. maher gallbladder removed 07/04 Mckenzie L Long gallbladder removed 07/04 Yissel Gravius gallbladder removed 07/04 Yissel Gravius gallbladder removed 07/04 Yissel Gravius gallbladder removed 07/04 Yissel Gravius STRUCTURAL STEEL PAINTER gallbladder removed 07/04 Yissel Gravius STRUCTURAL STEEL PAINTER gallbladder removed 07/04 Yissel Gravius STRUCTURAL STEEL PAINTER gallbladder removed 07/04 Brendon [place] EXTENSION SERVICE SPECIALIST IN CHARGE heart cath 01/2016 Mckenzie L Lo ng heart cath 01/2016 Yissel Gra vius heart cath 01/2016 Yissel Gra vius heart cath 01/2016 Yissel Gra vius heart cath 01/2016 Yissel Gra vius STRUCTURAL STEEL PAINTER heart cath 01/2016 Yissel Gra vius STRUCTURAL STEEL PAINTER heart cath 01/2016 Yissel Gra vius STRUCTURAL STEEL PAINTER heart cath 01/2016 Brendon Pry or EXTENSION SERVICE SPECIALIST IN CHARGE Nasal Screen MRSA/MSSA Dr. Uri Mcclelland Work Phone: Plan of Treatment Date Care Activity Detail Author Start: 05-22-2023 Basic metabolic panel calcium total METABOLIC PANEL, BASIC (65992) [facility] Work Phone: Start: 05-22-2023 Assay of thyroid stimulating hormone tsh TSH (59010) [facility] Work Phone: Start: 05-22-2023 Hemoglobin glycosylated a1c HGB A1C (72191) [facility] Work [...] knee joint nos ANESTH KNEE JOINT SURGERY [facility] Work Phone: Start: 03-21-2022 Arthroplasty fem condyles/tibial plateau knee REVISION OF KNEE JOINT [facility] Work Phone: Start: 03-21-2022 Injection aa&/strd femoral nerve NJX AA&/STRD FEMORAL NERVE [facility] Work Phone: Start: 03-21-2022 Application of ice collar, cap or bag [facility] Work Phone: Start: 03-21-2022 Exercises [facility] Work Phone: Start: 03-21-2022 Incentive spirometry [facility] Work Phone: Start: 03-21-2022 Neurovascular assessment [facility] Work Phone: Start: 03-21-2022 Patient discharge [facility] Work Phone: Start: 03-21-2022 Patient education [facility] Work Phone: Start: 03-21-2022 Provision of activity privileges [facility] Work Phone: Start: 03-21-2022 Referral to service [facility] Work Phone: Start: 03-21-2022 Vital signs measurements [facility] Work Phone: Start: 03-21-2022 Wound care [facility] Work Phone: Start: 03-21-2022 [facility] Work Phone: Start: 02-26-2022 Lipid panel LIPID PANEL (69485) [facility] Work Phone: Start: 02-26-2022 Assay of thyroid stimulating hormone tsh TSH (31450) [facility]; [facility] Work Phone: Start: 02-26-2022 Thromboplastin time partial plasma/whole blood PTT (Activated Partial Thromboplastin Time) (23291) [facility]; [facility] Work Phone: Start: 02-26-2022 Prothrombin time PT (Prothrobim Time) (41821) [facility]; [facility] Work Phone: Start: 02-26-2022 Comprehensive metabolic panel METABOLIC PANEL, COMPREHENSIVE (49637) [facility]; [facility] Work Phone: Start: 02-26-2022 Blood count complete auto&auto difrntl wbc CBC W/AUTO DIFF WBC (44779) [facility]; [facility] Work Phone: Start: 02-26-2022 Procedure Education Eprescribed prescriptions (G8553) [facility]; [facility] Work Phone: Start: 02-26-2022 Provider Instructions for Treatment [facility] Work Phone: Start: 03-17-2021 Procedure Education Eprescribed prescriptions (G8553) [facility]; [facility] Work Phone: Start: 04-18-2020 Assay of phosphorus inorganic PHOSPHORUS (27401) [facility]; [facility] Work Phone: Start: 04-18-2020 Phosphate [Mass/Vol] PHOSPHORUS (94721) [facility] Work Phone: Start: 04-18-2020 Procedure Education Eprescribed prescriptions (G8553) [facility] Work Phone: Start: 04-18-2020 Provider Instructions for Treatment Reviewed Lab [facility] Work Phone: Start: 04-11-2020 HbA1c (Bld) [Mass fraction] HGB A1C (94086) [facility] Work Phone: Start: 04-11-2020 Hemoglobin glycosylated a1c HGB A1C (11442) [facility]; [facility] Work Phone: Start: 04-11-2020 Assay of blood/uric acid URIC ACID BLOOD (09209) [facility] Work Phone: Start: 04-11-2020 Lipid panel LIPID PANEL (78306) [facility] Work Phone: Start: 04-11-2020 Assay of thyroid stimulating hormone tsh TSH (THYROID STIMULATING HORMONE) (72261) [facility]; [facility] Work Phone: Start: 04-11-2020 TSH Qn TSH (THYROID STIMULATING HORMONE) (72309) [facility] Work Phone: Start: 04-11-2020 Assay of triiodothyronine t3 free T3, FREE (TRIDOTHYRONINE) (21352) [facility]; [facility] Work Phone: Start: 04-11-2020 Free T3 [Mass/Vol] T3, FREE (TRIDOTHYRONINE) (30292) [facility] Work Phone: Start: 04-11-2020 Assay of free thyroxine T4, FREE (THYROXINE) (93281) [facility]; [facility] Work Phone: Start: 04-11-2020 Free T4 [Mass/Vol] T4, FREE (THYROXINE) (10881) [facility] Work Phone: Start: 09-09-2019 Assay of triiodothyronine t3 free T3, FREE (TRIDOTHYRONINE) (50208) [facility]; [facility] Work Phone: Start: 09-09-2019 Free T3 [Mass/Vol] T3, FREE (TRIDOTHYRONINE) (46824) [facility] Work Phone: Start: 09-09-2019 Assay of free thyroxine T4, FREE (THYROXINE) (49306) [facility]; [facility] Work Phone: Start: 09-09-2019 Free T4 [Mass/Vol] T4, FREE (THYROXINE) (50300) [facility] Work Phone: Start: 09-09-2019 Assay of thyroid stimulating hormone tsh TSH (THYROID STIMULATING HORMONE) (90324) [facility]; [facility] Work Phone: Start: 09-09-2019 TSH Qn TSH (THYROID STIMULATING HORMONE) (32467) [facility] Work Phone: Start: 09-09-2019 Procedure Education Eprescribed prescriptions (G8553) [facility] Work Phone: Start: 09-09-2019 Provider Instructions for Treatment [facility] Work Phone: Start: 09-09-2019 Lipid panel LIPID PANEL (22540) [facility] Work Phone: Comment on above: do in november 2019 Start: 09-09-2019 Assay of free thyroxine T4, FREE (THYROXINE) (76770) [facility]; [facility] Work Phone: Start: 09-09-2019 Assay of thyroid stimulating hormone tsh TSH (60044) [facility]; [facility] Work Phone: Start: 09-09-2019 Free T4 [Mass/Vol] T4, FREE (THYROXINE) (27672) [facility] Work Phone: Start: 09-09-2019 TSH Qn TSH (29857) [facility] Work Phone: Start: 09-09-2019 Assay of triiodothyronine t3 free T3, FREE (TRIDOTHYRONINE) (74678) [facility]; [facility] Work Phone: Start: 09-09-2019 Free T3 [Mass/Vol] T3, FREE (TRIDOTHYRONINE) (79222) [facility] Work Phone: Start: 04-01-2019 Assay of triiodothyronine t3 free T3, FREE (TRIDOTHYRONINE) (79539) [facility]; [facility] Work Phone: Start: 04-01-2019 Free T3 [Mass/Vol] T3, FREE (TRIDOTHYRONINE) (89308) [facility] Work Phone: Start: 04-01-2019 Assay of thyroid stimulating hormone tsh TSH (THYROID STIMULATING HORMONE) (55603) [facility]; [facility] Work Phone: Start: 04-01-2019 TSH Qn TSH (THYROID STIMULATING HORMONE) (85930) [facility] Work Phone: Start: 04-01-2019 Procedure Education Eprescribed prescriptions (G8553) [facility] Work Phone: Start: 04-01-2019 Provider Instructions for Treatment [facility] Work Phone: Start: 04-01-2019 Assay of blood/uric acid URIC ACID BLOOD (48617) [facility] Work Phone: Comment on above: do 08/06 Start: 04-01-2019 Lipoprotein blood blessing numbers & subclasses NMR Profile (06381) [facility] Work Phone: Comment on above: do in 08/06 Start: 04-01-2019 Assay of prostate specific antigen total PSA (PROSTATE SPECIFIC ANTIGEN) (V76.44) [facility] Work Phone: Start: 04-01-2019 Assay of thyroid stimulating hormone tsh TSH (THYROID STIMULATING HORMONE) (15758) [facility]; [facility] Work Phone: Start: 04-01-2019 TSH Qn TSH (THYROID STIMULATING HORMONE) (58079) [facility] Work Phone: Start: 04-01-2019 25 hydroxy includes fractions if performed CALCIFEDIOL (97732) [facility] Work Phone: Start: 04-01-2019 HbA1c (Bld) [Mass fraction] HGB A1C (97804) [facility] Work Phone: Start: 04-01-2019 Hemoglobin glycosylated a1c HGB A1C (10648) [facility]; [facility] Work Phone: Start: 03-12-2018 Procedure Education Eprescribed prescriptions (G8553) [facility] Work Phone: Start: 03-12-2018 Provider Instructions for Treatment Reviewed Lab [facility] Work Phone: Start: 02-26-2018 Blood count complete automated CBC (AUTO) (59723) [facility] Work Phone: Start: 02-26-2018 Antinuclear antibodies criselda CRISELDA (ANTINUCLEAR ANTIBODY) (29991) [facility]; [facility] Work Phone: Start: 02-26-2018 Nuclear Ab IF titer (S) CRISELDA (ANTINUCLEAR ANTIBODY) (11334) [facility] Work Phone: Start: 02-26-2018 Provider Instructions for Treatment [facility] Work Phone: Start: 02-25-2018 C-reactive protein C-REACTIVE PROTEIN (70152) [facility]; [facility] Work Phone: Start: 02-25-2018 CRP mass conc C-REACTIVE PROTEIN (18754) [facility] Work Phone: Start: 02-03-2018 Culture bct isol&prsmptv id isolate ea urine URINE BENTLEY CULTURE-IDENTIFICATN (47691) [facility] Work Phone: Start: 02-03-2018 Urinalysis qual/semiquant except immunoassays URINALYSIS (06538) [facility] Work Phone: Start: 02-03-2018 C-reactive protein C-REACTIVE PROTEIN (29364) [facility]; [facility] Work Phone: Start: 02-03-2018 CRP mass conc C-REACTIVE PROTEIN (40414) [facility] Work Phone: Start: 02-03-2018 Sedimentation rate rbc non-automated ESR-F (SED RATE ERYTHROCYTE - MALE) (95294) [facility] Work Phone: Start: 02-03-2018 Patient Education Fever: temperature [facility] Work Phone: Start: 02-03-2018 Procedure Education Eprescribed prescriptions (G9887) [facility] Work Phone: Start: 02-03-2018 Provider Instructions for Treatment Follow up if no improvement or if symptoms worsen [facility] Work Phone: Start: 02-03-2018 Culture bacterial blood aerobic w/id isolates BENTLEY CULTURE-BLOOD (71310) [facility] Work Phone: Start: 02-03-2018 Comprehensive metabolic panel METABOLIC PANEL, COMPREHENSIVE (63689) [facility] Work Phone: Start: 02-03-2018 Blood count complete auto&auto difrntl wbc CBC, PLATELETS & AUT DIFF (84170) [facility] Work Phone: Start: 02-03-2018 Virus centrifuge enhncd id imfluor stain ea Influenza A&B Viral Culture (21815) [facility] Work Phone: Start: 03-22-2017 Procedure Education Eprescribed prescriptions (G8553) [facility] Work Phone: Start: 03-08-2017 Provider Instructions for Treatment Reviewed Lab [facility] Work Phone: Start: 02-15-2017 End: 02-15-2017 Appointment Appointment [facility] Work Phone: Start: 12-25-2016 End: 12-25-2016 Appointment Appointment [facility] Work Phone: Start: 12-25-2016 End: 12-25-2016 Diagnostic colonoscopy Colonoscopy [facility] Work Phone: Start: 11-02-2016 Provider Instructions for Treatment [facility] Work Phone: Start: 11-02-2016 Assay of prostate specific antigen total PSA (PROSTATE SPECIFIC ANTIGEN) (V76.44) [facility] Work Phone: Start: 11-02-2016 Protein mass conc PSA (PROSTATE SPECIFIC ANTIGEN) (V76.44) [facility] Work Phone: Start: 11-02-2016 25 hydroxy includes fractions if performed CALCIFIDIOL (15412) VIT D 25 [facility] Work Phone: Start: 10-31-2016 Procedure Education Eprescribed prescriptions (G8553) [facility] Work Phone: Start: 10-31-2016 Assay of thyroid stimulating hormone tsh TSH (68962) [facility]; [facility] Work Phone: Start: 10-31-2016 Thyrotropin Qn TSH (42053) [facility] Work Phone: Start: 10-31-2016 Assay of free thyroxine T4, FREE (THYROXINE) (14562) [facility]; [facility] Work Phone: Start: 10-31-2016 T4 free mass conc T4, FREE (THYROXINE) (54262) [facility] Work Phone: Start: 10-31-2016 Assay of triiodothyronine t3 free T3, FREE (TRIDOTHYRONINE) (42624) [facility]; [facility] Work Phone: Start: 10-31-2016 T3 free mass conc T3, FREE (TRIDOTHYRONINE) (93143) [facility] Work Phone: Start: 03-07-2016 End: 03-07-2016 Follow Up Appt Other Follow Up Appt Other [facility] Work Phone: Start: 02-15-2016 End: 02-15-2016 Echocardiography Echocardiogram (complete) [facility] Work Phone: Start: 03-16-2015 25 hydroxy includes fractions if performed CALCIFEDIOL (03386) [facility] Work Phone: Start: 03-04-2015 Provider Instructions for Treatment [facility] Work Phone: Start: 03-04-2015 25 hydroxy includes fractions if performed CALCIFEDIOL (05969) [facility] Work Phone: Comment on above: to be done May 2015 Start: 03-04-2015 Assay of parathormone PARATHORMONE (62265) [facility] Work Phone: Start: 03-04-2015 25 hydroxy includes fractions if performed CALCIFEDIOL (03391) [facility] Work Phone: Start: 11-12-2014 Assay of blood/uric acid URIC ACID BLOOD (88222) [facility] Work Phone: Comment on above: draw in 2 weeks at hospital Start: 10-29-2014 Provider Instructions for Treatment Follow up in 2 weeks [facility] Work Phone: Start: 09-29-2014 Procedure Education Eprescribed prescriptions (G8553) [facility] Work Phone: Start: 09-29-2014 Rheumatoid factor quantitative RHEUMATOID FACTOR-QUANT (12146) [facility] Work Phone: Start: 09-29-2014 Assay of blood/uric acid URIC ACID BLOOD (84569) [facility] Work Phone: Start: 04-14-2014 Provider Instructions for Treatment [facility] Work Phone: Start: 04-14-2014 Hemoglobin A1c/Hemoglobin.total mass fraction (Bld) Hemoglobin Glyclated (HGB A1C) (29765) [facility] Work Phone: Start: 04-14-2014 Hemoglobin glycosylated a1c Hemoglobin Glyclated (HGB A1C) (64021) [facility]; [facility] Work Phone: Start: 04-09-2013 Provider Instructions for Treatment Reviewed Lab [facility] Work Phone: Start: 04-09-2013 Hepatic function panel HEPATIC FUNCTION PANEL (15853) [facility] Work Phone: Comment on above: do in jun Start: 04-09-2013 Lipid panel LIPID PANEL (87318) [facility] Work Phone: Comment on [...] mass fraction (Bld) Hemoglobin Glyclated (HGB A1C) (74156) [facility] Work Phone: Start: 03-06-2012 Hemoglobin glycosylated a1c Hemoglobin Glyclated (HGB A1C) (36248) [facility]; [facility] Work [...] 07-26-2011 Hepatic function panel HEPATIC FUNCTION PANEL (86764) [facility] Work Phone: Start: 07-26-2011 Lipid panel LIPID PANEL (79814) [facility] Work Phone: Start: 04-26-2011 Provider Instructions for Treatment [facility] Work Phone: Start: 04-26-2011 Glucose mass conc Glucose, PP/2 Hour (00896) [facility] Work Phone: Start: 04-26-2011 Glucose quantitative blood xcpt reagent strip Glucose, PP/2 Hour (67900) [facility] Work Phone: Patient referral [facility] Work Phone: [facility] Work Phone: [...] Immunization Date Immunization Notes Care Provider [facility] 07-13-2024 influenza, seasonal, injectable, preservative free Dr. Birgit Mcclelland DO Work Phone: [facility] 06-06-2023 influenza, injectabl e, quadrivalent, preservative free [facility] 06-06-2022 influenza, injectabl e, quadrivalent, preservative free [facility] 07-17-2021 Covid (Pfizer) [facility] 05-16-2021 influenza, injectabl e, quadrivalent, preservative free [facility] 05-16-2021 influenza, seasonal, injectable [facility] Work Phone: 12-02-2020 Covid (Pfizer) [facility] 11-11-2020 Covid (Pfizer) [facility] 05-17-2020 influenza, injectabl e, quadrivalent, preservative free [facility] 05-17-2020 influenza, seasonal, injectable [facility] Work Phone: 06-22-2019 influenza, injectabl e, quadrivalent, preservative free [facility] 06-22-2019 influenza, seasonal, injectable [facility] Work Phone: 05-16-2018 influenza, injectabl e, quadrivalent, preservative free [facility] 05-16-2018 influenza, seasonal, injectable [facility] Work Phone: 05-15-2017 influenza, injectabl e, quadrivalent, preservative free [facility] 05-15-2017 influenza, seasonal, injectable [facility] Work Phone: 05-17-2016 influenza, injectabl e, quadrivalent, preservative free [facility] 05-17-2016 influenza, seasonal, injectable [facility] Work Phone: 05-19-2015 influenza, injectabl e, quadrivalent, preservative free [facility] 05-19-2015 influenza, seasonal, injectable [facility] Work Phone: 05-13-2014 influenza, injectabl e, quadrivalent, preservative free [facility] 05-13-2014 influenza, seasonal, injectable [facility] Work Phone: 08-26-2013 Influenza virus vaccine [facility] Payers Date Payer Category Payer [facility] [id number] 2024 Self-pay [id number] 2016 Unknown [id number] Unknown Unknown [id number] 2.16.8 [id number] Unknown [id number] 2.16.8 [id number] Unknown [id number] 2.16.8 [id number] Unknown [id number] 2.16.8 [id number] Unknown [id number] 2.16.8 [id number] Social History Date Type Detail Facility Caffeine Use [facility] Work Phone: Comment on above: qd Inactive Lives with spouse 3 Dog, Cat Start: 03-25-2021 End: 03-07-2022 Tobacco smoking status ORIS Unknown if ever smoked [facility] Start: 1965 Sex Assigned At Male [facility] Start: 03-07-2022 Tobacco smoking status NHIS Never smoked tobacco (finding) [facility] Start: 11-11-2024 Sex Male (finding) [facility] Medical Equipment Procedure Code Equipment Code Equipment Origin al Text Equipment Identifier Dates Arthroplasty, knee, unicompartmental, using robot-assisted navigation, or total knee CEMENT,BONE DOUGH 1/2 BATCH FDA Start: 03-21-2022 Arthroplasty, knee, unicompartmental, using robot-assisted navigation, or total knee ([id number]) Unicondylar knee prosthesis ()[id number] FDA Start: 03-21-2022 Arthroplasty, knee, unicompartmental, using robot-assisted navigation, or total knee ([id number]) Unicondylar knee prosthesis ()[id number] FDA Start: 03-21-2022 Arthroplasty, knee, unicompartmental, using robot-assisted navigation, or total knee ([id number]) Unicondylar knee prosthesis )[id number] FDA Start: 03-21-2022 Arthroplasty, knee, unicompartmental, using [...] Assessment Result Facility 03-21-2022 Cognitive function Voice/Name [facility] Work Phone: Clinical Notes 11-29-2023 Note Date & Type Note Facility 11-29-2023 Discharge summary Note Date/Time November 29, 2023 4:23pm [facility] Physical Therapy [address] [place] [address] / REHABILITATION SERVICES DISCHARGE SUMMARY MR#: [id number] Acct: [id number] Name: SHERMAN CORONEL Rep #: [id number] : 1965 57 From: Cert. JOHN Jensen, OCS Referring DrPushpa: SONYA Barger Status: REG RCR [facility] SELF PAY INSURANCE Patient Information Patient Information: [...] by Yenifer Billingsley PT. JOHN, FLORIN> 11/29/23 0384 CC: SONYA Barger; Dr. Birgit Mcclelland, DO ~ JLMatty Signed [facility] Work Phone: 1(721) 652-303804-12-2024 Discharge summary Author Ehsan Sanderson [facility] November 29, 2023 4:25pm Note Date/Time November 29, 2023 4:2 3pm [facility] [address] [place] [address] / REHABILITATION SERVICES DISCHARGE SUMMARY MR#: [id number] Acct: [id number] Name: SHERMAN CORONEL Rep #: [id number] : 1965 57 From: Cert. PRINCE JensenT, OCS Referring DrPushpa: SONYA Barger Status: REG RCR Insurance: [employer]/[facility] SELF PAY INSURANCE Patient Information Patient Information: [...] Ehsan Sanderson PT Cert. JOHN, OCS> 11/29/23 5345 CC: SONYA Barger; Dr. 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 Start:18-Apr-2020 Instruction Type:Provider Instructions for Treatment How to access health informa tion online 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 Start:09-Sep-2019 Instruction Type:Patient Education How to access health informa tion online - Detail 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 Start:09-Sep-2019 Instruction Type:Patient Education Patient Instructions 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 Start:09-Sep-2019 Instruction Type:Provider Instructions for Treatment How to access health informa tion online 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 Start:01-Apr-2019 Instruction Type:Patient Education How to access health informa tion online - Detail 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 Start:01-Apr-2019 Instruction Type:Patient Education Patient Instructions 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 Start:01-Apr-2019 Instruction Type:Provider Instructions for Treatment How to access health informa tion online 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 Start:12-Mar-2018 Instruction Type:Patient Education How to access health informa tion online - Detail 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 Start:12-Mar-2018 Instruction Type:Patient Education Patient Instructions 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 Start:12-Mar-2018 Instruction Type:Provider Instructions for Treatment How [...] How to access health informa tion online 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 Start:18-Apr-2020 Instruction Type:Patient Education How to access health informa tion online - Detail 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 Start:18-Apr-2020 Instruction Type:Patient Education Patient Instructions 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 Start:18-Apr-2020 Instruction Type:Provider Instructions for Treatment How to access health informa tion online 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 Start:09-Sep-2019 Instruction Type:Patient Education How to access health informa tion online - Detail 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 Start:09-Sep-2019 Instruction Type:Patient Education Patient Instructions 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 Start:09-Sep-2019 Instruction Type:Provider Instructions for Treatment How to access health informa tion online 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 Start:01-Apr-2019 Instruction Type:Patient Education How to access health informa tion online - Detail 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 Start:01-Apr-2019 Instruction Type:Patient Education Patient Instructions 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 Start:01-Apr-2019 Instruction Type:Provider Instructions for Treatment How to access health informa tion online 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 Start:12-Mar-2018 Instruction Type:Patient Education How to access health informa tion online - Detail 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 Start:12-Mar-2018 Instruction Type:Patient Education Patient Instructions 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 Start:12-Mar-2018 Instruction Type:Provider Instructions for Treatment How [...] Phone: Instructions* Name Dates Details Patient Instructions 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 Start:17-Mar-2021 Instruction Type:Provider Instructions for Treatment How to Access Health Informa tion Online using Patient Portal and [employer]rd [employer] Apps 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 Start:17-Mar-2021 Instruction Type:Patient Education How to access health informa tion online 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 Start:18-Apr-2020 Instruction Type:Patient Education How to access health informa tion online - Detail 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 Start:18-Apr-2020 Instruction Type:Patient Education Patient Instructions 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 Start:18-Apr-2020 Instruction Type:Provider Instructions for Treatment How to access health informa tion online 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 Start:09-Sep-2019 Instruction Type:Patient Education How to access health informa tion online - Detail 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 Start:09-Sep-2019 Instruction Type:Patient Education Patient Instructions 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 Start:09-Sep-2019 Instruction Type:Provider Instructions for Treatment How to access health informa tion online 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 Start:01-Apr-2019 Instruction Type:Patient Education How to access health informa tion online - Detail 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 Start:01-Apr-2019 Instruction Type:Patient Education Patient Instructions 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 Start:01-Apr-2019 Instruction Type:Provider Instructions for Treatment How to access health informa tion online 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 Start:12-Mar-2018 Instruction Type:Patient Education How to access health informa tion online - Detail 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 Start:12-Mar-2018 Instruction Type:Patient Education Patient Instructions 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 Start:12-Mar-2018 Instruction Type:Provider Instructions for Treatment How [...] Phone: Instructions* Name Dates Details Patient Instructions 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 Start:26-Feb-2022 Instruction Type:Provider Instructions for Treatment How to Access Health Informa tion Online using Patient Portal and [employer]rd [employer] Apps 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 Start:26-Feb-2022 Instruction Type:Patient Education Patient Instructions 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 Start:17-Mar-2021 Instruction Type:Provider Instructions for Treatment How to Access Health Informa tion Online using Patient Portal and [employer]rd [employer] Apps 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 Start:17-Mar-2021 Instruction Type:Patient Education How to access health informa tion online 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 Start:18-Apr-2020 Instruction Type:Patient Education How to access health informa tion online - Detail 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 Start:18-Apr-2020 Instruction Type:Patient Education Patient Instructions 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 Start:18-Apr-2020 Instruction Type:Provider Instructions for Treatment How to access health informa tion online 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 Start:09-Sep-2019 Instruction Type:Patient Education How to access health informa tion online - Detail 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 Start:09-Sep-2019 Instruction Type:Patient Education Patient Instructions 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 Start:09-Sep-2019 Instruction Type:Provider Instructions for Treatment How to access health informa tion online 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 Start:01-Apr-2019 Instruction Type:Patient Education How to access health informa tion online - Detail 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 Start:01-Apr-2019 Instruction Type:Patient Education Patient Instructions 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 Start:01-Apr-2019 Instruction Type:Provider Instructions for Treatment How to access health informa tion online 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 Start:12-Mar-2018 Instruction Type:Patient Education How to access health informa tion online - Detail 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 Start:12-Mar-2018 Instruction Type:Patient Education Patient Instructions 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 Start:12-Mar-2018 Instruction Type:Provider Instructions for Treatment How [...] Phone: Instructions* Name Dates Details Patient Instructions 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 Start:26-Feb-2022 Instruction Type:Provider Instructions for Treatment How to Access Health Informa tion Online using Patient Portal and [employer]rd [employer] Apps 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 Start:26-Feb-2022 Instruction Type:Patient Education Patient Instructions 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 Start:17-Mar-2021 Instruction Type:Provider Instructions for Treatment How to Access Health Informa tion Online using Patient Portal and [employer]rd [employer] Apps 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 Start:17-Mar-2021 Instruction Type:Patient Education How to access health informa tion online 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 Start:18-Apr-2020 Instruction Type:Patient Education How to access health informa tion online - Detail 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 Start:18-Apr-2020 Instruction Type:Patient Education Patient Instructions 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 Start:18-Apr-2020 Instruction Type:Provider Instructions for Treatment How to access health informa tion online 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 Start:09-Sep-2019 Instruction Type:Patient Education How to access health informa tion online - Detail 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 Start:09-Sep-2019 Instruction Type:Patient Education Patient Instructions 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 Start:09-Sep-2019 Instruction Type:Provider Instructions for Treatment How to access health informa tion online 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 Start:01-Apr-2019 Instruction Type:Patient Education How to access health informa tion online - Detail 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 Start:01-Apr-2019 Instruction Type:Patient Education Patient Instructions 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 Start:01-Apr-2019 Instruction Type:Provider Instructions for Treatment How to access health informa tion online 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 Start:12-Mar-2018 Instruction Type:Patient Education How to access health informa tion online - Detail 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 Start:12-Mar-2018 Instruction Type:Patient Education Patient Instructions 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 Start:12-Mar-2018 Instruction Type:Provider Instructions for Treatment How [...] Phone: Instructions* Name Dates Details Patient Instructions 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 Start:26-Feb-2022 Instruction Type:Provider Instructions for Treatment How to Access Health Informa tion Online using Patient Portal and [employer]rd [employer] Apps 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 Start:26-Feb-2022 Instruction Type:Patient Education Patient Instructions 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 Start:17-Mar-2021 Instruction Type:Provider Instructions for Treatment How to Access Health Informa tion Online using Patient Portal and [employer]rd [employer] Apps 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 Start:17-Mar-2021 Instruction Type:Patient Education How to access health informa tion online 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 Start:18-Apr-2020 Instruction Type:Patient Education How to access health informa tion online - Detail 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 Start:18-Apr-2020 Instruction Type:Patient Education Patient Instructions 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 Start:18-Apr-2020 Instruction Type:Provider Instructions for Treatment How to access health informa tion online 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 Start:09-Sep-2019 Instruction Type:Patient Education How to access health informa tion online - Detail 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 Start:09-Sep-2019 Instruction Type:Patient Education Patient Instructions 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 Start:09-Sep-2019 Instruction Type:Provider Instructions for Treatment How to access health informa tion online 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 Start:01-Apr-2019 Instruction Type:Patient Education How to access health informa tion online - Detail 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 Start:01-Apr-2019 Instruction Type:Patient Education Patient Instructions 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 Start:01-Apr-2019 Instruction Type:Provider Instructions for Treatment How to access health informa tion online 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 Start:12-Mar-2018 Instruction Type:Patient Education How to access health informa tion online - Detail 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 Start:12-Mar-2018 Instruction Type:Patient Education Patient Instructions 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 Start:12-Mar-2018 Instruction Type:Provider Instructions for Treatment How [...] Phone: Instructions* Name Dates Details Patient Instructions 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 Start:26-Feb-2022 Instruction Type:Provider Instructions for Treatment How to Access Health Informa tion Online using Patient Portal and [employer]rd [employer] Apps 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 Start:26-Feb-2022 Instruction Type:Patient Education Patient Instructions 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 Start:17-Mar-2021 Instruction Type:Provider Instructions for Treatment How to Access Health Informa tion Online using Patient Portal and [employer]rd [employer] Apps 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 Start:17-Mar-2021 Instruction Type:Patient Education How to access health informa tion online 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 Start:18-Apr-2020 Instruction Type:Patient Education How to access health informa tion online - Detail 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 Start:18-Apr-2020 Instruction Type:Patient Education Patient Instructions 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 Start:18-Apr-2020 Instruction Type:Provider Instructions for Treatment How to access health informa tion online 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 Start:09-Sep-2019 Instruction Type:Patient Education How to access health informa tion online - Detail 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 Start:09-Sep-2019 Instruction Type:Patient Education Patient Instructions 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 Start:09-Sep-2019 Instruction Type:Provider Instructions for Treatment How to access health informa tion online 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 Start:01-Apr-2019 Instruction Type:Patient Education How to access health informa tion online - Detail 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 Start:01-Apr-2019 Instruction Type:Patient Education Patient Instructions 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 Start:01-Apr-2019 Instruction Type:Provider Instructions for Treatment How to access health informa tion online 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 Start:12-Mar-2018 Instruction Type:Patient Education How to access health informa tion online - Detail 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 Start:12-Mar-2018 Instruction Type:Patient Education Patient Instructions 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 Start:12-Mar-2018 Instruction Type:Provider Instructions for Treatment How [...] Phone: Instructions* Name Dates Details Patient Instructions 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 Start:20-Apr-2022 Instruction Type:Provider Instructions for Treatment How to Access Health Informa tion Online using Patient Portal and [employer]rd [employer] Apps 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 Start:20-Apr-2022 Instruction Type:Patient Education Patient Instructions 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 Start:26-Feb-2022 Instruction Type:Provider Instructions for Treatment How to Access Health Informa tion Online using Patient Portal and [employer]rd [employer] Apps 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 Start:26-Feb-2022 Instruction Type:Patient Education Patient Instructions 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 Start:17-Mar-2021 Instruction Type:Provider Instructions for Treatment How to Access Health Informa tion Online using Patient Portal and [employer]rd [employer] Apps 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 Start:17-Mar-2021 Instruction Type:Patient Education How to access health informa tion online 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 Start:18-Apr-2020 Instruction Type:Patient Education How to access health informa tion online - Detail 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 Start:18-Apr-2020 Instruction Type:Patient Education Patient Instructions 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 Start:18-Apr-2020 Instruction Type:Provider Instructions for Treatment How to access health informa tion online 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 Start:09-Sep-2019 Instruction Type:Patient Education How to access health informa tion online - Detail 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 Start:09-Sep-2019 Instruction Type:Patient Education Patient Instructions 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 Start:09-Sep-2019 Instruction Type:Provider Instructions for Treatment How to access health informa tion online 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 Start:01-Apr-2019 Instruction Type:Patient Education How to access health informa tion online - Detail 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 Start:01-Apr-2019 Instruction Type:Patient Education Patient Instructions 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 Start:01-Apr-2019 Instruction Type:Provider Instructions for Treatment How to access health informa tion online 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 Start:12-Mar-2018 Instruction Type:Patient Education How to access health informa tion online - Detail 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 Start:12-Mar-2018 Instruction Type:Patient Education Patient Instructions 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 Start:12-Mar-2018 Instruction Type:Provider Instructions for Treatment How [...] Phone: Instructions* Name Dates Details Patient Instructions 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 Start:20-Apr-2022 Instruction Type:Provider Instructions for Treatment How to Access Health Informa tion Online using Patient Portal and [employer]rd [employer] Apps 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 Start:20-Apr-2022 Instruction Type:Patient Education Patient Instructions 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 Start:26-Feb-2022 Instruction Type:Provider Instructions for Treatment How to Access Health Informa tion Online using Patient Portal and [employer]rd [employer] Apps 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 Start:26-Feb-2022 Instruction Type:Patient Education Patient Instructions 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 Start:17-Mar-2021 Instruction Type:Provider Instructions for Treatment How to Access Health Informa tion Online using Patient Portal and [employer]rd [employer] Apps 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 Start:17-Mar-2021 Instruction Type:Patient Education How to access health informa tion online 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 Start:18-Apr-2020 Instruction Type:Patient Education How to access health informa tion online - Detail 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 Start:18-Apr-2020 Instruction Type:Patient Education Patient Instructions 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 Start:18-Apr-2020 Instruction Type:Provider Instructions for Treatment How to access health informa tion online 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 Start:09-Sep-2019 Instruction Type:Patient Education How to access health informa tion online - Detail 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 Start:09-Sep-2019 Instruction Type:Patient Education Patient Instructions 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 Start:09-Sep-2019 Instruction Type:Provider Instructions for Treatment How to access health informa tion online 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 Start:01-Apr-2019 Instruction Type:Patient Education How to access health informa tion online - Detail 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 Start:01-Apr-2019 Instruction Type:Patient Education Patient Instructions 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 Start:01-Apr-2019 Instruction Type:Provider Instructions for Treatment How to access health informa tion online 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 Start:12-Mar-2018 Instruction Type:Patient Education How to access health informa tion online - Detail 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 Start:12-Mar-2018 Instruction Type:Patient Education Patient Instructions 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 Start:12-Mar-2018 Instruction Type:Provider Instructions for Treatment How [...] Phone: Instructions* Name Dates Details Patient Instructions 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 Start:22-May-2023 Instruction Type:Provider Instructions for Treatment How to Access Health Informa tion Online using Patient Portal and 3rd [employer] Apps 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 Start:22-May-2023 Instruction Type:Patient Education Patient Instructions 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 Start:20-Apr-2022 Instruction Type:Provider Instructions for Treatment How to Access Health Informa tion Online using Patient Portal and [employer]rd [employer] Apps 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 Start:20-Apr-2022 Instruction Type:Patient Education Patient Instructions 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 Start:26-Feb-2022 Instruction Type:Provider Instructions for Treatment How to Access Health Informa tion Online using Patient Portal and [employer]rd [employer] Apps 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 Start:26-Feb-2022 Instruction Type:Patient Education Patient Instructions 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 Start:17-Mar-2021 Instruction Type:Provider Instructions for Treatment How to Access Health Informa tion Online using Patient Portal and [employer]rd [employer] Apps 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 Start:17-Mar-2021 Instruction Type:Patient Education How to access health informa tion online 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 Start:18-Apr-2020 Instruction Type:Patient Education How to access health informa tion online - Detail 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 Start:18-Apr-2020 Instruction Type:Patient Education Patient Instructions 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 Start:18-Apr-2020 Instruction Type:Provider Instructions for Treatment How to access health informa tion online 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 Start:09-Sep-2019 Instruction Type:Patient Education How to access health informa tion online - Detail 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 Start:09-Sep-2019 Instruction Type:Patient Education Patient Instructions 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 Start:09-Sep-2019 Instruction Type:Provider Instructions for Treatment How to access health informa tion online 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 Start:01-Apr-2019 Instruction Type:Patient Education How to access health informa tion online - Detail 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 Start:01-Apr-2019 Instruction Type:Patient Education Patient Instructions 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 Start:01-Apr-2019 Instruction Type:Provider Instructions for Treatment How to access health informa tion online 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 Start:12-Mar-2018 Instruction Type:Patient Education How to access health informa tion online - Detail 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 Start:12-Mar-2018 Instruction Type:Patient Education Patient Instructions 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 Start:12-Mar-2018 Instruction Type:Provider Instructions for Treatment How [...] for referral (narrative)No reason for [facility] available[facility]: Summary Purpose Family History No [...] No March 25, 2021 9:10pm 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 No March 25 9:10pm Advance Directive Response Recorded Date/ Time Advance Directives No June 9:40am Living Will No March 07, 2022 12:18pm 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 Bar Cashier No March 07 12:18pm Advance Directive Response Recorded Date/ Time Advance Directives No June 10:40am Living Will No March 07, 2022 1:18pm 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 [employer] Cashier No March 07 1:18pm Advance Directive Response Recorded Date/ Time Advance Directives No June 10:40am Instructions Name Dates Details 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 : How to acce ss health information online 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 : How to acce ss health information online - Detail 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 : Patient Ins tructions 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 Current nonsmoker : How to a ccess [...] Detail Indication:Ankle pain, left Name Dates Details 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 : How to acce ss health information online 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 : How to acce ss health information online - Detail 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 : Patient Ins tructions 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 Current nonsmoker : How to a ccess [...] Detail Indication:Ankle pain, left Name Dates Details 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 : How to acce ss health information online 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 : How to acce ss health information online - Detail 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 : Patient Ins tructions 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 Current nonsmoker : How to a ccess [...] How to access health informa tion online 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 Start:01-Apr-2019 Instruction Type:Patient Education How to access health informa tion online - Detail 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 Start:01-Apr-2019 Instruction Type:Patient Education Patient Instructions 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 Start:01-Apr-2019 Instruction Type:Provider Instructions for Treatment How to access health informa tion online 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 Start:12-Mar-2018 Instruction Type:Patient Education How to access health informa tion online - Detail 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 Start:12-Mar-2018 Instruction Type:Patient Education Patient Instructions 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 Start:12-Mar-2018 Instruction Type:Provider Instructions for Treatment How [...] How to access health informa tion online 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 Start:01-Apr-2019 Instruction Type:Patient Education How to access health informa tion online - Detail 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 Start:01-Apr-2019 Instruction Type:Patient Education Patient Instructions 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 Start:01-Apr-2019 Instruction Type:Provider Instructions for Treatment How to access health informa tion online 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 Start:12-Mar-2018 Instruction Type:Patient Education How to access health informa tion online - Detail 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 Start:12-Mar-2018 Instruction Type:Patient Education Patient Instructions 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 Start:12-Mar-2018 Instruction Type:Provider Instructions for Treatment How [...] How to access health informa tion online 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 Start:09-Sep-2019 Instruction Type:Patient Education How to access health informa tion online - Detail 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 Start:09-Sep-2019 Instruction Type:Patient Education Patient Instructions 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 Start:09-Sep-2019 Instruction Type:Provider Instructions for Treatment How to access health informa tion online 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 Start:01-Apr-2019 Instruction Type:Patient Education How to access health informa tion online - Detail 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 Start:01-Apr-2019 Instruction Type:Patient Education Patient Instructions 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 Start:01-Apr-2019 Instruction Type:Provider Instructions for Treatment How to access health informa tion online 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 Start:12-Mar-2018 Instruction Type:Patient Education How to access health informa tion online - Detail 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 Start:12-Mar-2018 Instruction Type:Patient Education Patient Instructions 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 Start:12-Mar-2018 Instruction Type:Provider Instructions for Treatment How [...] How to access health informa tion online 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 Start:18-Apr-2020 Instruction Type:Patient Education How to access health informa tion online - Detail 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 Start:18-Apr-2020 Instruction Type:Patient Education Patient Instructions 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 Start:18-Apr-2020 Instruction Type:Provider Instructions for Treatment How to access health informa tion online 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 Start:09-Sep-2019 Instruction Type:Patient Education How to access health informa tion online - Detail 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 Start:09-Sep-2019 Instruction Type:Patient Education Patient Instructions 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 Start:09-Sep-2019 Instruction Type:Provider Instructions for Treatment How to access health informa tion online 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 Start:01-Apr-2019 Instruction Type:Patient Education How to access health informa tion online - Detail 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 Start:01-Apr-2019 Instruction Type:Patient Education Patient Instructions 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 Start:01-Apr-2019 Instruction Type:Provider Instructions for Treatment How to access health informa tion online 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 Start:12-Mar-2018 Instruction Type:Patient Education How to access health informa tion online - Detail 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 Start:12-Mar-2018 Instruction Type:Patient Education Patient Instructions 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 Start:12-Mar-2018 Instruction Type:Provider Instructions for Treatment How [...] How to access health informa tion online Indication:furniture polisher Start:18-Apr-2020 Instruction Type:Patient Education How to access health informa tion online - Detail Indication:furniture polisher Start:18-Apr-2020 Instruction Type:Patient Education Patient Instructions Indication:furniture polisher Start:18-Apr-2020 Instruction Type:Provider Instructions for Treatment How to access health informa tion online Indication:furniture polisher Start:09-Sep-2019 Instruction Type:Patient Education How to access health informa tion online - Detail Indication:furniture polisher Start:09-Sep-2019 Instruction Type:Patient Education Patient Instructions Indication:furniture polisher Start:09-Sep-2019 Instruction Type:Provider Instructions for Treatment How to access health informa tion online Indication:furniture polisher Start:01-Apr-2019 Instruction Type:Patient Education How to access health informa tion online - Detail Indication:furniture polisher Start:01-Apr-2019 Instruction Type:Patient Education Patient Instructions Indication:furniture polisher Start:01-Apr-2019 Instruction Type:Provider Instructions for Treatment How to access health informa tion online Indication:furniture polisher Start:12-Mar-2018 Instruction Type:Patient Education How to access health informa tion online - Detail Indication:furniture polisher Start:12-Mar-2018 Instruction Type:Patient Education Patient Instructions Indication:furniture polisher Start:12-Mar-2018 Instruction Type:Provider Instructions for Treatment How [...] How to access health informa tion online Indication:furniture polisher Start:18-Apr-2020 Instruction Type:Patient Education How to access health informa tion online - Detail Indication:furniture polisher Start:18-Apr-2020 Instruction Type:Patient Education Patient Instructions Indication:furniture polisher Start:18-Apr-2020 Instruction Type:Provider Instructions for Treatment How to access health informa tion online Indication:furniture polisher Start:09-Sep-2019 Instruction Type:Patient Education How to access health informa tion online - Detail Indication:furniture polisher Start:09-Sep-2019 Instruction Type:Patient Education Patient Instructions Indication:furniture polisher Start:09-Sep-2019 Instruction Type:Provider Instructions for Treatment How to access health informa tion online Indication:furniture polisher Start:01-Apr-2019 Instruction Type:Patient Education How to access health informa tion online - Detail Indication:furniture polisher Start:01-Apr-2019 Instruction Type:Patient Education Patient Instructions Indication:furniture polisher Start:01-Apr-2019 Instruction Type:Provider Instructions for Treatment How to access health informa tion online Indication:furniture polisher Start:12-Mar-2018 Instruction Type:Patient Education How to access health informa tion online - Detail Indication:furniture polisher Start:12-Mar-2018 Instruction Type:Patient Education Patient Instructions Indication:furniture polisher Start:12-Mar-2018 Instruction Type:Provider Instructions for Treatment How [...] How to access health informa tion online Indication:furniture polisher Start:09-Sep-2019 Instruction Type:Patient Education How to access health informa tion online - Detail Indication:furniture polisher Start:09-Sep-2019 Instruction Type:Patient Education Patient Instructions Indication:furniture polisher Start:09-Sep-2019 Instruction Type:Provider Instructions for Treatment How to access health informa tion online Indication:furniture polisher Start:01-Apr-2019 Instruction Type:Patient Education How to access health informa tion online - Detail Indication:furniture polisher Start:01-Apr-2019 Instruction Type:Patient Education Patient Instructions Indication:furniture polisher Start:01-Apr-2019 Instruction Type:Provider Instructions for Treatment How to access health informa tion online 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 Birgit Mcclelland DO Family Provider Active Dr. Birgit Mcclelland [...] BE BASED ON THE PRIMARY CLINICAL RECORDS. [employer] provides no warranty or guarantee of the accuracy or completeness of information in this document.
[2025-06-05 09:49] LABS: PSA,Total - Annual Screen 1.15 ng/mL (0.02-4.00)
== END | disposition home or self-care (01) ==
LOC: LAB 08:49
PROVIDERS: PCP Internal Medicine; Referring Provider Internal Medicine; Visit Provider Internal Medicine
DX: Z12.5 Encounter for screening for malignant neoplasm of prostate (principal)
CPT/HCPCS: 36415; 84153; G0103

== ENCOUNTER 2025-07-01 10:55 | Emergency (ER) | payer OTHER, SELFPAY ==
[2025-07-01 10:56] VITALS: BP 158/88; PULSE 79; RESP 18; TEMP 36.9; O2SAT 99; BMI 41.1
--- NOTE | 2025-07-01 11:07 | RAD_ITS ---
PROCEDURE: KNEE 4 OR MORE VIEWS 07/01/2025 REASON FOR EXAM: PAIN TECHNIQUE: Procedure Code: RADKN Modality: DX Procedure: KNEE 4 OR MORE VIEWS Laterality: Right knee COMPARISON: April 05, 2022. FINDINGS: The patient is status post medial right hemiarthroplasty. This is unchanged. No fracture or dislocation. No evidence of joint effusion. RAD/Knee 4 or More Views IMPRESSION: Status post left medial hemiarthroplasty. No acute abnormality is seen. Reading Location: [place] [id number]
--- NOTE | 2025-07-01 11:11 | EX.ED.DYSGE1 ---
HPI History of Present Illness Chief Complaint: Lower Extremity Injury Narrative Narrative: Chief complaint and HPI: 59-year-old male with past medical history of arthritis, right knee replacement presents for evaluation of right knee pain. Patient works at [employer]. States he was working today in which he tripped over IV tubing. States he landed on his right knee. Since the incident he has developed a small bruise and swelling. Denies any new numbness or tingling. Denies injury elsewhere. Review of systems: See HPI Medications: As listed on the chart Allergies: As listed on the chart PFSH: Per chart Vital signs: As listed on the chart. Reviewed. Physical exam: Gen: Alert,NAD Head: Normocephalic, atraumatic CV: Regular rate Resp: Nonlabored respiration Musc: Full ROM of the right knee with passive and active range of motion, full flexion and extension, no knee instability, patient has ecchymosis to the lateral aspect of the right anterior knee, knee with mild swelling and tenderness diffusely, no popping or clicking, no erythema or warmth, compartments soft, sensation intact, DP/PT pulses +2 Psych: Cooperative, appropriate mood and affect [facility] Medical History (Updated 03/07/22 @ 13:21 by Kelin Champion) Hypothyroid Arthritis Gout High cholesterol Chewing tobacco use Cholecystectomy planned Home Medications Medication Instructions Recorded Last Taken Type febuxostat 40 mg tablet (Uloric) 40 mg PO DAILY GOUT 02/12/16 03/14/18 History fenofibric acid (choline) 135 mg 135 mg PO DAILY CHOLESTEROL 02/12/16 03/13/18 History capsule,delayed release (Trilipix) levothyroxine 25 mcg tablet 25 mcg PO DAILY 03/25/21 03/21/22 History (Synthroid) multivitamin 1 tab PO DAILY 03/25/21 Unknown History cholecalciferol (vitamin D3) 125 125 mcg PO DAILY 03/07/22 Unknown History mcg (5,000 unit) tablet (Vitamin D3) Allergy/AdvReac Type Severity Reaction Status Date / Time No Known Allergies Allergy Verified 07/01/25 10:58 Social History Smoking Status: Never smoker EXAM Physical Exam Const Vital Signs: 07/01/25 10:56 Temperature 98.4 F Temperature Source Oral Pulse Rate 79 Respiratory Rate 18 Blood Pressure 158/88 H Blood Pressure Mean 111 Pulse Ox 99 Oxygen Delivery Method Room Air MDM MDM MDM Narrative Medical decision making narrative: 59-year-old male with past medical history of arthritis, right knee replacement presents for evaluation of right knee pain. Patient works at [employer]. States he was working today in which he tripped over IV tubing. States he landed on his right knee. Since the incident he has developed a small bruise and swelling. Denies any new numbness or tingling. See physical exam findings. Differential diagnosis includes but is not limited to contusion, effusion, sprain, suspect less likely fracture. X-ray of the knee obtained. Ice applied. Patient was offered pain medicine but declined. X-ray of the knee was personally reviewed interpreted by me, ED physician. No fracture or dislocation. Partial repair. Radiology in agreement. Suspect contusion however cannot fully rule out sprain. Follow-up with Worker's Compensation. RICE therapy. Tylenol Motrin as needed for pain. Will apply Benny bandage for comfort. Patient confirmed understanding of plan. Patient one to discharge home. Impression: 1. Right knee contusion 2. Injury at work Radiography Diagnostic Testing: Clinical Impression(s) from Imaging Studies Knee X-Ray 07/01/25 11:07 IMPRESSION: Status post left medial hemiarthroplasty. No acute abnormality is seen. Reading Location: [facility]- Discharge Plan Triage Chief Complaint: Lower Extremity Injury ED Provider: Hemal Gonzalez Dx/Rx/DC Orders Prescriptions: No Action febuxostat [Uloric] 40 MG tablet 40 mg PO DAILY Patient Comments: Gout fenofibric acid (choline) [Trilipix] 135 MG capsule,delayed release(DR/EC) 135 mg PO DAILY Patient Comments: Cholesterol multivitamin Tablet 1 tab PO DAILY levothyroxine [Synthroid] 25 mcg Tablet 25 mcg PO DAILY cholecalciferol (vitamin D3) [Vitamin D3] 125 mcg (5,000 unit) Tablet 125 mcg PO DAILY Primary Care Provider: Birgit Mcclelland Referrals: Birgit Mcclelland DO [Primary Care Provider, Internal Medicine] Print Language: Palestinian
[2025-07-01 12:42] VITALS: BP 158/88; PULSE 79; RESP 18; TEMP 36.9; O2SAT 99
== END 2025-07-01 12:48 | disposition home or self-care (01) ==
PROVIDERS: Emergency Provider Surgery; PCP Internal Medicine; Visit Provider Surgery
DX: S80.01XA Contusion of right knee, initial encounter (principal); E78.00 Pure hypercholesterolemia, unspecified; Z96.651 Presence of right artificial knee joint; W01.0XXA Fall on same level from slipping, tripping and stumbling without subsequent striking against object, initial encounter; Y99.0 Civilian activity done for income or pay
CPT/HCPCS: 73564; 99282

== ENCOUNTER → 2025-07-30 | Outpatient (CLI) | payer OTHER, SELFPAY ==
[2025-07-30 14:06] LABS: AST(SGOT) 53 U/L (<=37); Alanine Aminotransfer ALT/SGPT 83 U/L (<=46); Albumin, Serum 4.5 g/dL (3.5-5.0); Alkaline Phosphatase 59 U/L (40-129); Anion Gap 12 (5-15); BUN 18 mg/dL (4-19); BUN/Creat Ratio 14.2 RATIO (10-20); Calcium,Total 9.6 mg/dL (7.6-11.0); Carbon Dioxide 24.6 mmol/L (21.0-32.0); Chloride 104 mmol/L (98-108); Cholesterol 171 mg/dL (<=200); Globulin 3.3 g/dL (2.2-4.2); Glucose 163 mg/dL (70-99); Low Density Lipoprotein Calc. 103 mg/dL; Potassium 4.1 mmol/L (3.3-5.1); Triglycerides 235 mg/dL; Uric Acid 4.8 mg/dL (3.5-7.2); Very Low Density Lipoprotein 47 mg/dL (5-40); cholesterol:hdl ratio screen 6.24
[2025-08-03 04:07] LABS: PSA, Total 0.8 ng/mL (0.0-4.0)
== END | disposition home or self-care (01) ==
LOC: LAB 12:04
PROVIDERS: PCP Internal Medicine; Referring Provider Internal Medicine; Visit Provider Internal Medicine
DX: Z12.5 Encounter for screening for malignant neoplasm of prostate (principal); E79.0 Hyperuricemia without signs of inflammatory arthritis and tophaceous disease; R74.8 Abnormal levels of other serum enzymes; E83.39 Other disorders of phosphorus metabolism; E03.9 Hypothyroidism, unspecified; E78.5 Hyperlipidemia, unspecified; R73.03 Prediabetes
CPT/HCPCS: 36415; 80053; 80061; 83036; 84100; 84153; 84443; 84550